=== PATIENT | female | born 1940 | race Caucasian/White ===

== ENCOUNTER → 2018-02-23 10:33 | Outpatient (CLI) | payer MEDICARE, SELFPAY ==
[2018-02-23 12:15] LABS: Absolute Neutrophil Count 2.1 X10^3/uL (2.0-7.7); Basophil# 0.02 X10^3/uL; Basophil% 0.5 % (0-1); Eosinophils% 4.6 % (0-5); Hematocrit 37.8 % (37-47); Hemoglobin 12.5 g/dl (12.0-15.0); Lymphocyte % 38.9 % (19-41); Mean Corp Hgb Conc 33.1 g/gl (32-36); Mean Corpuscular Hgb 29.8 pg (27.0-32.0); Mean Corpuscular Volume 90.2 fL (81-99); Mean Platelet Vol. 10.7 fl (6.2-12.0); Monocyte# 0.33 X10^3/uL; Monocyte% 7.6 % (0-10); Neutrophil # 2.11 X10^3/uL (2.7-7.7); Neutrophil % 48.2 % (47-70); Platelet Count 179 K/mm3 (150-450); RBC Distribution Width SD 44.7 fl (35.1-43.9); Red Blood Count 4.19 M/mm3 (4.2-5.4); White Blood Count 4.4 K/mm3 (4.4-11.0)
[2018-02-23 12:20] LABS: POSITIVE COUNT NO; POSITIVE DIFFERENTIAL NO; POSITIVE MORPHOLOGY NO
[2018-02-23 12:39] LABS: Anion Gap 9 (5-15); BUN 14 mg/dL (7-18); BUN/Creat Ratio 19.9 RATIO (10-20); Calcium,Total 8.6 mg/dL (8.5-10.1); Chloride 108 mmol/L (98-107); Cholesterol 173 mg/dL (200); EST Glomerular Filtration Rate 86 mL/min (>60); Est Glom Filt Rate - Afr Amer 104 mL/min (>60); Glucose 86 mg/dL (74-106); High Density Lipoprotein 66 mg/dL; Potassium 4.3 mmol/L (3.5-5.1); Sodium Level 141 mmol/L (136-145); Triglycerides 157 mg/dL; Very Low Density Lipoprotein 31 mg/dL (5-40)
== END ==
PROVIDERS: Family Provider Family Medicine; PCP Family Medicine; Visit Provider Family Medicine
DX: E55.9 Vitamin D deficiency, unspecified (principal); E78.00 Pure hypercholesterolemia, unspecified; Q63.1 Lobulated, fused and horseshoe kidney; R53.83 Other fatigue
CPT/HCPCS: 36415; 80048; 80061; 82306; 84443; 85025

== ENCOUNTER → 2018-04-04 11:56 | Outpatient (CLI) | payer MEDICARE, SELFPAY ==
--- NOTE | 2018-04-04 12:01 | BI_ITS ---
MAMMOGRAPHY - BILATERAL SCREENING REASON FOR EXAM: Female, 77 years old. Routine annual screening examination. PERTINENT HISTORY: Non-contributory. TECHNIQUE: Digital bilateral breast leon (3D mammographic acquisition) in the CC and MLO projections. 2-D mediolateral oblique (MLO) and craniocaudad (CC) views of both breasts were obtained. CAD: Full Field Digital Mammography with Computer Added Detection was performed. COMPARISON: Comparison is made with prior study dated June 30, 2016 and June 11, 2015. FINDINGS: Breast Composition: The breasts are almost entirely fatty. There are no dominant masses or suspicious calcifications. No other significant abnormalities are identified. There has been no significant change since the prior study. BI/SCREENING MAMM (CAD), BILAT IMPRESSION: Stable bilateral screening mammogram. Yearly follow-up mammogram recommended. (A) ASSESSMENT CATEGORY: BIRADS Category 1: Negative. A letter regarding these results will be sent to the patient by the facility within 30 days. Approximately 10% of breast cancers are not detected by mammography. A normal mammogram should not delay biopsy of a clinically suspicious abnormality. [id number] Electronically Signed: Fady Ryder MD at 14:38 EDT Tel [phone], Service support ,
== END ==
PROVIDERS: Family Provider Family Medicine; PCP Family Medicine; Visit Provider Family Medicine
DX: Z12.31 Encounter for screening mammogram for malignant neoplasm of breast (principal); R92.8 Other abnormal and inconclusive findings on diagnostic imaging of breast
CPT/HCPCS: 77063; 77067

== ENCOUNTER → 2019-06-19 09:04 | Outpatient (CLI) | payer MEDICARE, SELFPAY ==
[2019-06-19 10:18] LABS: Vitamin D,25 Hydroxy 28.8 ng/mL (29.95-100.01)
[2019-06-19 10:22] LABS: Anion Gap 9 (5-15); BUN 20 mg/dL (7-18); BUN/Creat Ratio 23.3 RATIO (10-20); Calcium,Total 9.3 mg/dL (8.5-10.1); Chloride 108 mmol/L (98-107); Cholesterol 186 mg/dL (200); Creatinine, Serum 0.86 mg/dL (0.55-1.02); EST Glomerular Filtration Rate 68 mL/min (>60); Est Glom Filt Rate - Afr Amer 82 mL/min (>60); Glucose 93 mg/dL (74-106); High Density Lipoprotein 70 mg/dL; Potassium 4.4 mmol/L (3.5-5.1); Sodium Level 142 mmol/L (136-145); Thyroid Stim Hormone (TSH) 5.47 uIU/mL (0.358-3.74); Triglycerides 118 mg/dL; Very Low Density Lipoprotein 24 mg/dL (5-40)
== END ==
PROVIDERS: Family Provider Family Medicine; PCP Family Medicine; Referring Provider Family Medicine; Visit Provider Family Medicine
DX: E55.9 Vitamin D deficiency, unspecified (principal); E78.00 Pure hypercholesterolemia, unspecified; M85.80 Other specified disorders of bone density and structure, unspecified site
CPT/HCPCS: 36415; 80048; 80061; 82306; 84443

== ENCOUNTER → 2019-06-21 15:38 | Outpatient (CLI) | payer MEDICARE, SELFPAY ==
--- NOTE | 2019-06-21 15:42 | BI_ITS ---
MAMMOGRAPHY - BILATERAL SCREENING REASON FOR EXAM: Female, 78 years old. Routine annual screening examination. PERTINENT HISTORY: Non-contributory. TECHNIQUE: Digital bilateral breast christiano (3D mammographic acquisition) in the CC and MLO projections. 2-D mediolateral oblique (MLO) and craniocaudad (CC) views of both breasts were obtained. CAD: Full Field Digital Mammography with Computer Added Detection was performed. COMPARISON: Comparison is made with prior study dated April 04, 2018 and June 30, 2016. FINDINGS: Breast Composition: There are scattered areas of fibroglandular density. There are no dominant masses or suspicious calcifications. Stable benign-appearing bilateral axillary lymph nodes. No other significant abnormalities are identified. There has been no significant change since the prior study. BI/SCREEN MAMM (CAD) W/CHRISTIANO BILAT IMPRESSION: Stable bilateral screening mammogram. Yearly follow-up mammogram recommended. (A) ASSESSMENT CATEGORY: BIRADS Category 2: Benign. A letter regarding these results will be sent to the patient by the facility within 30 days. Approximately 10% of breast cancers are not detected by mammography. A normal mammogram should not delay biopsy of a clinically suspicious abnormality. [id number] Electronically Signed: Fady Ryder, at 8:24 EDT , Service support ,
== END ==
PROVIDERS: Family Provider Family Medicine; PCP Family Medicine; Visit Provider Family Medicine
DX: Z12.31 Encounter for screening mammogram for malignant neoplasm of breast (principal)
CPT/HCPCS: 77063; 77067

== ENCOUNTER → 2019-09-19 08:13 | Outpatient (CLI) | payer MEDICARE, SELFPAY ==
[2019-09-19 08:56] LABS: Absolute Lymphocyte Count 1.61 X10^3/uL (0.83-4.51); Basophil# 0.05 X10^3/uL; Basophil% 0.8 % (0-1); Eosinophil# 0.26 X10^3/uL; Hematocrit 37.4 % (37-47); Hemoglobin 12.6 g/dL (12.0-15.0); Lymphocyte # 1.61 X10^3/ul (4.0); Lymphocyte % 24.7 % (19-41); Mean Corp Hgb Conc 33.7 g/dL (32-36); Mean Corpuscular Hgb 30.3 pg (27.0-32.0); Mean Corpuscular Volume 89.9 fL (81-99); Monocyte# 0.53 X10^3/uL; Monocyte% 8.1 % (0-10); NRBC Flagged by Analyzer 0 % (0-5); Neutrophil # 4.03 X10^3/uL (2.7-7.7); Neutrophil % 61.8 % (47-70); Platelet Count 188 K/mm3 (150-450); RBC Distribution Width CV 13.2 % (11.6-14.6); RBC Distribution Width SD 43.3 fl (35.1-43.9); Red Blood Count 4.16 M/mm3 (4.2-5.4); White Blood Count 6.5 K/mm3 (4.4-11.0)
[2019-09-19 09:10] LABS: ALB/GLOB Ratio 1.1 RATIO (0.9-2.4); AST(SGOT) 19 U/L (15-37); Alanine Aminotransfer ALT/SGPT 29 U/L (13-56); Albumin, Serum 3.7 g/dL (3.2-5.0); Alkaline Phosphatase 113 U/L (45-117); Anion Gap 7 (5-15); BUN 15 mg/dL (7-18); BUN/Creat Ratio 19.3 RATIO (10-20); CPK Total, Creatine Kinase 71 U/L (26-192); Calcium,Total 8.9 mg/dL (8.5-10.1); Chloride 105 mmol/L (98-107); Cholesterol 175 mg/dL (200); Creatinine, Serum 0.78 mg/dL (0.55-1.02); EST Glomerular Filtration Rate 76 mL/min (>60); Est Glom Filt Rate - Afr Amer 92 mL/min (>60); Globulin 3.5 g/dL (2.2-4.2); Glucose 96 mg/dL (74-106); High Density Lipoprotein 65 mg/dL; Magnesium 2.1 mg/dL (1.6-2.6); Phosphorus 3.3 mg/dL (2.5-4.9); Potassium 3.8 mmol/L (3.5-5.1); Protein, Total 7.2 g/dL (6.4-8.2); Sodium Level 140 mmol/L (136-145); T4 Free Direct 0.88 ng/dL (0.76-1.46); Thyroid Stim Hormone (TSH) 9.32 uIU/mL (0.358-3.74); Triglycerides 137 mg/dL; Very Low Density Lipoprotein 27 mg/dL (5-40)
[2019-09-19 13:54] LABS: Vitamin B12 536 pg/mL (211-911); Vitamin D,25 Hydroxy 32.5 ng/mL (29.95-100.01)
== END ==
PROVIDERS: Family Provider Family Medicine; PCP Family Medicine; Referring Provider Family Medicine; Visit Provider Family Medicine
DX: E55.9 Vitamin D deficiency, unspecified (principal); R53.83 Other fatigue; R25.2 Cramp and spasm; E03.9 Hypothyroidism, unspecified
CPT/HCPCS: 36415; 80053; 80061; 82306; 82550; 82607; 83735; 84100; 84439; 84443; 85025

== ENCOUNTER → 2019-10-02 13:08 | Outpatient (CLI) | payer MEDICARE, SELFPAY ==
--- NOTE | 2019-10-02 13:12 | CDU_ITS ---
Reason For Study: carotid stenosis Rt. Velocities/BP Lt. Velocities/BP Prox CCA 90.4/20.0 cm/sec. Prox CCA 72.1/16.0 cm/sec. Mid CCA 66.9/14.7 cm/sec. Mid CCA 72.1/17.3 cm/sec. Dist CCA 57.8/14.7 cm/sec. Dist CCA 56.5/13.4 cm/sec. Prox ICA 42.1/13.4 cm/sec. Prox ICA 40.8/13.4 cm/sec. Mid ICA 49.9/14.7 cm/sec. Mid ICA 64.3/18.6 cm/sec. Dist ICA 87.8/30.4 cm/sec. Dist ICA 73.4/22.6 cm/sec. Rt. ICA/CCA = 1.3. Lt. ICA/CCA = 1.0. Prox ECA 99.5/10.8 cm/sec. Prox ECA 98.2/14.7 cm/sec. Rt. Vert. 48.6/14.7 cm/sec. Lt. Vert. 52.5/13.4 cm/sec. Right Extracranial There is intimal thickening but no significant atherosclerotic plaque noted in the right common carotid artery. There is intimal thickening but no significant atherosclerotic plaque noted in the right internal carotid artery. There is heterogeneous, irregular atherosclerotic plaque noted in the right external carotid artery. Antegrade flow is noted in the right vertebral artery. Left Extracranial There is intimal thickening but no significant atherosclerotic plaque noted in the left common carotid artery. There is heterogeneous, smooth atherosclerotic plaque noted in the left internal carotid artery. There is homogeneous, smooth atherosclerotic plaque noted in the left external carotid artery. Antegrade flow is noted in the left vertebral artery. Procedure Carotid Duplex [id number]. The exam was diagnostic. Exam performed in department. Interpretation Summary No significant atherosclerotic plaque or stenosis noted in the right internal carotid artery. Mild (<50%) stenosis left extracranial internal carotid. Flow within the vertebral arteries is antegrade bilaterally. Ordering Physician: Shant Sommers Performed By: Mac Sánchez RVT
--- NOTE | 2019-10-02 13:13 | ECHOD_ITS ---
Reason For Study: MURMUR Procedure This was a 2D Doppler, Color Flow transthoracic echocardiogram. The exam was of adequate technical quality. Exam performed in department. Left Ventricle Normal LV size. Left ventricular systolic function is normal. The estimated ejection fraction is 65 %. Diastolic function is indeterminate. No regional wall motion abnormalities noted. Right Ventricle Normal RV size. Normal systolic function. Atria Normal left atrium. Normal right atrium. No doppler evidence for ASD. Mitral Valve There is moderate mitral annular calcification. Extension of the mitral annular calcification onto the base of the posterior mitral valve leaflet. Mild (1+) eccentric mitral valve insufficiency. Tricuspid Valve Normal tricuspid valve. Mild to moderate (1-2+) tricuspid valve insufficiency. Right ventricular systolic pressure estimated to be 29 mmHg. Aortic Valve Trisinus/trileaflet aortic valve. Moderate focal aortic valve calcification. Pulmonic Valve The pulmonic valve is not well visualized. Great Vessels Normal sized aortic root. Pericardium/Pleural No pericardial effusion. MMode/2D Measurements & Calculations LVIDd: 4.7 cm IVSd: 0.96 cm LVOT diam: 2.0 cm LVIDs: 2.6 cm LVPWd: 1.1 cm LVOT area: 3.1 cm2 RVDd: 3.7 cm FS: 45.6 % Ao root diam: 3.2 cm LAV(MOD-bp): 60.8 ml LA A4 area: 19.1 cm2 LAV(MOD-bp) Indexed: 31.0 ml/m2 LAV(MOD-sp2): 56.5 ml LAV(MOD-sp4): 63.5 ml LA dimension(2D): 4.2 cm Time Measurements MV dec time: 0.27 sec Doppler Measurements & Calculations MV E max ash: 77.3 cm/sec Lat Peak E' Ash: 3.5 cm/sec Med Peak E' Ash: 3.3 cm/sec MV A max ash: 102.8 cm/sec E/E' lat: 21.8 E/E' med: 23.5 MV E/A: 0.75 Ao V2 max: 199.3 cm/sec LV V1 max: 155.6 cm/sec SV(LVOT): 104.4 ml Ao max P.9 mmHg LV V1 max P.7 mmHg Ao V2 mean: 136.1 cm/sec LV V1 mean P.4 mmHg Ao mean P.2 mmHg LV V1 mean: 111.1 cm/sec Ao V2 VTI: 39.6 cm LV V1 VTI: 34.0 cm AYLEEN(I,D): 2.6 cm2 AYLEEN(V,D): 2.4 cm2 PA V2 max: 78.8 cm/sec TR max ash: 253.6 cm/sec TR max P.7 mmHg Interpretation Summary Left ventricular systolic function is normal. The estimated ejection fraction is 65 %. There is moderate mitral annular calcification. Extension of the mitral annular calcification onto the base of the posterior mitral valve leaflet. Mild (1+) eccentric mitral valve insufficiency. Mild to moderate (1-2+) tricuspid valve insufficiency. Moderate focal aortic valve calcification. Right ventricular systolic pressure estimated to be 29 mmHg. Diastolic function is indeterminate. Ordering Physician: Shant Sommers Referring Physician: Shant Sommers Performed By: Tiny Veloz RDCS, RVT
[2019-10-10 20:21] LABS: Anti-Thyroglobulin AB 1.8 IU/mL (0.0-0.9); Thyroid Peroxidase AB 11 IU/mL (0-34)
[2019-10-10 20:22] LABS: Thyroglobulin RIA 9.2 ng/mL (.)
== END ==
PROVIDERS: Family Provider Family Medicine; PCP Family Medicine; Referring Provider Family Medicine; Visit Provider Family Medicine
DX: R09.89 Other specified symptoms and signs involving the circulatory and respiratory systems (principal); I65.29 Occlusion and stenosis of unspecified carotid artery; R01.1 Cardiac murmur, unspecified; E03.9 Hypothyroidism, unspecified
CPT/HCPCS: 36415; 84432; 86376; 86800; 93306; 93880

== ENCOUNTER → 2019-10-10 10:04 | Outpatient (CLI) | payer MEDICARE, SELFPAY ==
--- NOTE | 2019-10-10 10:07 | BD_ITS ---
STUDY: DUAL ENERGY X-RAY ABSORPTIOMETRY / DXA REASON FOR EXAM: Female, 79 years old. The patient is postmenopausal. Loss of height. TECHNIQUE: Bone Mineral Density (BMD) measurements of lumbar spine and bilateral hips were obtained. COMPARISON: None. FINDINGS: Lumbar Spine (L1-L4): g/cm2 (0.942) / T-score (-1.9) / Z-score (-0.1) Findings are suggestive of osteopenia with a moderate fracture risk. Left Femur Total: g/cm2 (0.907) / T-score (-0.8) / Z-score (1.1) Left Femoral Neck: g/cm2 (0.873) / T-score (-1.2) / Z-score (0.9) Right Femur Total: g/cm2 (0.852) / T-score (-1.2) / Z-score (0.7) Right Femoral Neck: g/cm2 (0.860) / T-score (-1.3) / Z-score (0.8) BD/Dexa Bone Density Study IMPRESSION: The patient is considered osteopenic as outlined below according to World Brad Organization (WHO) criteria with a moderate fracture risk. Reference Information: The T-score is the number of standard deviations above or below the standard which is normal for young adults at their peak bone mineral density. The World Health Organization (WHO) interprets the T-scores as follows: Above -1 Normal bone density Between -1 and -2.5 Osteopenia Equal to / or below -2.5 Osteoporosis As a practical clinical guideline, osteopenia may be graded as follows: Mild -1 through -1.5 Moderate -1.6 through -2.0 Severe -2.1 through -2.4 The Z-score is the number of standard deviations above or below age-matched controls. A Z-score of less than -1.5 would be considered abnormal. References: 1. NIH Osteoporosis and Related Bone Diseases http://www.osteo.org 2. International Society for Clinical Densitometry http://www.iscd.org 3. National Osteoporosis Foundation http://www.nof.org Electronically Signed: Fady Ryder, at 15:23 EST , Service support ,
== END ==
PROVIDERS: Family Provider Family Medicine; PCP Family Medicine; Referring Provider Family Medicine; Visit Provider Family Medicine
DX: M85.80 Other specified disorders of bone density and structure, unspecified site (principal); Z78.0 Asymptomatic menopausal state
CPT/HCPCS: 77080

== ENCOUNTER 2020-04-29 06:44 | Emergency (ER) | payer MEDICARE, SELFPAY ==
[2020-04-29] VITALS (8 sets, daily range): BP systolic 128–208; BP diastolic 72–110; PULSE 55–69; RESP 16–18; TEMP 36.5–36.8; O2SAT 97–98; BMI 33.0
--- NOTE | 2020-04-29 06:58 | EKG12_ITS ---
Test Reason : Blood Pressure : / mmHG Vent. Rate : 056 BPM Atrial Rate : 056 BPM P-R Int : 176 ms QRS Dur : 142 ms QT Int : 484 ms P-R-T Axes : 052 007 045 degrees QTc Int : 467 ms Sinus bradycardia Right bundle branch block Abnormal ECG Confirmed by EMHNAZ WOO ([id number]), digital editor TASHIA AUSTIN ([id number]) on 05/06/2020 8:16:59 AM Referred By: Confirmed By:MEHNAZ WOO
--- NOTE | 2020-04-29 06:59 | ED.VIS.GEN ---
History of Present Illness Chief Complaint: General Illness Informant: Patient Narrative: Patient presents the emergency room following an episode of dizziness. She states that yesterday her right hand was tingly but resolved. She did not have any weakness. Today she got up and use the bathroom and came back when she got back into bed she was very dizzy stating that the room was spinning. She has had positional vertigo in the past and did some self repositioning techniques which helped. During that episode she was sweaty and nauseous as well as some mild dyspnea.. That has improved. She also notes some generalized myalgias. No fever or cough. She states that over the past 6 months she is noted that whenever she takes her blood pressure it is typically over 170. She is not currently treated for hypertension. No chest pain. Eating and drinking normally. She has had a good deal of stress as her is sick and she has been caring for him. Past Medical History - Allergies and Home Meds Allergies/Adverse Reactions: Allergies No Known Allergies Allergy (Verified 04/29/20 06:47) Primary Care Physician: Shant Sommers MD [Primary Care Provider] - 1-2 Weeks Smoking Status: Never smoker Review of Systems General: Denies: Chills, Fever, Sweats Eyes: Denies: Visual changes - bilaterally, Diplopia ENT: Denies: Rhinorrhea, Sore throat Cardiovascular: Denies: Chest pain, Palpitations Respiratory: Reports: Dyspnea. Denies: Cough, Dyspnea on exertion Gastrointestinal: Reports: Nausea. Denies: Abdominal pain, Vomiting, Diarrhea, Melena, Hematochezia Genitourinary: Denies: Dysuria, Hematuria, Frequency Musculoskeletal: Denies: Back pain, Extremity Pain Skin: Denies: Rash, Wounds Neurological: Reports: Parasthesia - right hand, - - vertigo. Denies: Headache, Weakness, Numbness Physical Exam Vital Signs/Narrative: Vital Signs Temp Pulse Resp BP Pulse Ox 04/29/20 06:45 97.7 F L 65 16 208/84 H 97 Inital Vital Signs reviewed: Yes General: Well nourished, Well developed, No Acute Distress Head: Normocephalic, Atraumatic Eyes: Perrl, EOMI, - - No nystagmus ENT: Moist mucous membranes, No rhinorrhea Neck: Supple, Nontender Cardiovascular: Regular rate, Regular rhythm, No murmurs Respiratory: No distress, CTA bilaterally, Chest nontender Abdomen: Soft, Nontender, Nondistended, Normal bowel sounds Back: Nontender, Normal Inspection Extremities: Nontender, No edema Skin: Normal color, No rash Neurological: Alert, Oriented x3, Cranial nerves II-XII grossly intact, Normal Strength, Normal Sensation Psychological: - - Patient appears very anxious Diagnostic/Tx/Re-eval Clinical Impression(s) from Imaging Studies Brain CT 04/29/20 07:21 IMPRESSION: Chronic involutional changes of the brain. No acute hemorrhage Right maxillary sinusitis Electronically Signed: Russ Cornell MD at 8:16 EDT , Service support , Chest X-Ray 04/29/20 08:00 IMPRESSION: No acute pulmonary process Electronically Signed: Russ Cornell MD at 8:16 EDT , Service support , Laboratory Last Values WBC 4.4 K/mm3 (4.4-11.0) 04/29/20 07:12 RBC 3.98 M/mm3 (4.2-5.4) L 04/29/20 07:12 Hgb 12.1 g/dL (12.0-15.0) 04/29/20 07:12 Hct 36.3 % (37-47) L 04/29/20 07:12 MCV 91.2 fL (81-99) 04/29/20 07:12 MCH 30.4 pg (27.0-32.0) 04/29/20 07:12 MCHC 33.3 g/dL (32-36) 04/29/20 07:12 RDW Std Deviation 43.1 fl (35.1-43.9) 04/29/20 07:12 RDW Coeff of Rachel 13.2 % (11.6-14.6) 04/29/20 07:12 Plt Count 165 K/mm3 (150-450) 04/29/20 07:12 MPV 10.0 fl (6.2-12.0) 04/29/20 07:12 Immature Gran % (Auto) 0.200 % (0.0-0.9) 04/29/20 07:12 Neut % (Auto) 48.0 % (47-70) 04/29/20 07:12 Lymph % (Auto) 40.0 % (19-41) 04/29/20 07:12 [place] % (Auto) 7.5 % (0-10) 04/29/20 07:12 Eos % (Auto) 3.6 % (0-5) 04/29/20 07:12 Baso % (Auto) 0.7 % (0-1) 04/29/20 07:12 Absolute Neuts (auto) 2.1 X10^3/uL (2.0-7.7) 04/29/20 07:12 Absolute Lymphs (auto) 1.77 X10^3/uL (0.83-4.51) 04/29/20 07:12 Nucleated RBC % 0 % (0-5) 04/29/20 07:12 Sodium 142 mmol/L (136-145) 04/29/20 07:12 Potassium 3.7 mmol/L (3.5-5.1) 04/29/20 07:12 Chloride 108 mmol/L (98-107) H 04/29/20 07:12 Carbon Dioxide 26.0 mmol/L (21.0-32.0) 04/29/20 07:12 Anion Gap 8 (5-15) 04/29/20 07:12 BUN 14 mg/dL (7-18) 04/29/20 07:12 Creatinine 0.66 mg/dL (0.55-1.02) 04/29/20 07:12 Estim Creat Clear Calc 41.05 ml/min 04/29/20 07:12 Est GFR (MDRD) Af Amer 112 mL/min (>60) 04/29/20 07:12 Est GFR (MDRD) Non-Af 92 mL/min (>60) 04/29/20 07:12 BUN/Creatinine Ratio 21.3 RATIO (10-20) H 04/29/20 07:12 Glucose 100 mg/dL (74-106) 04/29/20 07:12 Calcium 8.9 mg/dL (8.5-10.1) 04/29/20 07:12 Total Bilirubin 0.40 mg/dL (0.20-1.00) 04/29/20 07:12 AST 20 U/L (15-37) 04/29/20 07:12 ALT 25 U/L (13-56) 04/29/20 07:12 Alkaline Phosphatase 84 U/L (45-117) 04/29/20 07:12 Troponin I < 0.015 ng/mL (<0.045) 04/29/20 07:12 Total Protein 6.8 g/dL (6.4-8.2) 04/29/20 07:12 Albumin 3.7 g/dL (3.2-5.0) 04/29/20 07:12 Globulin 3.1 g/dL (2.2-4.2) 04/29/20 07:12 Albumin/Globulin Ratio 1.2 RATIO (0.9-2.4) 04/29/20 07:12 Urine Color Yellow (Yellow) 04/29/20 07:40 Urine Clarity Sl. Cloudy (Clear) 04/29/20 07:40 Urine pH 6.0 (5.0 - 8.0) 04/29/20 07:40 Ur Specific [place] 1.020 (1.002-1.030) 04/29/20 07:40 Urine Protein Negative mg/dl (Negative) 04/29/20 07:40 Urine Glucose (UA) Normal mg/dl (Normal) 04/29/20 07:40 Urine Ketones Negative mg/dl (Negative) 04/29/20 07:40 Urine Occult Blood 50 /ul (Negative) H 04/29/20 07:40 Urine Nitrite Negative (Negative) 04/29/20 07:40 Urine Bilirubin Negative mg/dL (Negative) 04/29/20 07:40 Urine Urobilinogen Normal mg/dl (Normal) 04/29/20 07:40 Ur Leukocyte Esterase 25 /ul (Negative) H 04/29/20 07:40 Urine RBC 0-5 SEEN /hpf (0-5) 04/29/20 07:40 Urine WBC 0-5 SEEN /hpf (0-5) 04/29/20 07:40 Ur Squamous Epith Cells 0-5 SEEN /hpf (5-10) 04/29/20 07:40 Urine Bacteria 2+ /hpf (None Seen) 04/29/20 07:40 Urine Mucus 0 SEEN /hpf (<or=2+) 04/29/20 07:40 - EKG Initial EKG Interpretation: Sinus Rhythm - EKG demonstrates a sinus bradycardia at a rate of 56 with right bundle branch block. No ectopy or concerning features of ACS. - Medical Decision Making CT the brain and chest x-ray were negative. Basic labs were normal. Patient's blood pressures have remained elevated in the 200/90 range. Try different size cuffs and manual readings and pretty consistently got elevated pressures. She was given a dose of amlodipine. I spoke with her primary care physician we will write a prescription for the same and have her follow-up in the office return if worsening or concerns. ED Disposition - Plan for ED Patient: Disposition: Home or Assisted Living Diagnosis: Hypertension, Vertigo Instructions: ED Hypertension New Begin Treatment, ED Vertigo Unspecified Prescriptions: Amlodipine [Norvasc] 5 mg PO DAILY #30 tab Prescription Printed Referrals: Shant Sommers MD [Primary Care Provider] - 1-2 Weeks
[2020-04-29] MEDS: Ondansetron 4 MG/2 ML Vial IV (07:12)
[2020-04-29 07:20] LABS: Absolute Lymphocyte Count 1.77 X10^3/uL (0.83-4.51); Absolute Neutrophil Count 2.1 X10^3/uL (2.0-7.7); Basophil# 0.03 X10^3/uL; Basophil% 0.7 % (0-1); Eosinophil# 0.16 X10^3/uL; Eosinophils% 3.6 % (0-5); Hematocrit 36.3 % (37-47); Hemoglobin 12.1 g/dL (12.0-15.0); Lymphocyte # 1.77 X10^3/ul (4.0); Mean Corp Hgb Conc 33.3 g/dL (32-36); Mean Corpuscular Hgb 30.4 pg (27.0-32.0); Mean Corpuscular Volume 91.2 fL (81-99); Monocyte# 0.33 X10^3/uL; Monocyte% 7.5 % (0-10); NRBC Flagged by Analyzer 0 % (0-5); Neutrophil # 2.12 X10^3/uL (2.7-7.7); Platelet Count 165 K/mm3 (150-450); RBC Distribution Width CV 13.2 % (11.6-14.6); RBC Distribution Width SD 43.1 fl (35.1-43.9); Red Blood Count 3.98 M/mm3 (4.2-5.4); White Blood Count 4.4 K/mm3 (4.4-11.0)
--- NOTE | 2020-04-29 07:21 | CT_ITS ---
STUDY: CT BRAIN WITHOUT CONTRAST REASON FOR EXAM: Female, 79 years old. Dizziness, sob, BODY ACHES RADIATION DOSAGE (If Supplied By Facility): CTDIvol = ( 60.81 ) mGy, DLP = ( 1044.28 ) mGycm TECHNIQUE: Transaxial CT imaging of the brain was performed without administration of intravenous contrast material. Individualized dose optimization techniques were used for this CT. COMPARISON: No relevant priors. FINDINGS: Normal soft tissue structures. Normal calvarium. There is mild cerebral atrophy with widening of the extra-axial spaces and ventricular dilatation. There are areas of decreased attenuation within the white matter tracts of the supratentorial brain, consistent with microvascular disease changes. 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 Normal brainstem. There is mild cerebellar atrophy. There is no intracranial hemorrhage. There are no findings of an acute ischemic infarction. Near complete opacification of the right maxillary sinus CT/Brain/Head without Contrast IMPRESSION: Chronic involutional changes of the brain. No acute hemorrhage Right maxillary sinusitis Electronically Signed: Russ Cornell MD at 8:16 EDT , Service support ,
[2020-04-29 07:38] LABS: ALB/GLOB Ratio 1.2 RATIO (0.9-2.4); AST(SGOT) 20 U/L (15-37); Alanine Aminotransfer ALT/SGPT 25 U/L (13-56); Albumin, Serum 3.7 g/dL (3.2-5.0); Alkaline Phosphatase 84 U/L (45-117); Anion Gap 8 (5-15); BUN 14 mg/dL (7-18); BUN/Creat Ratio 21.3 RATIO (10-20); Calcium,Total 8.9 mg/dL (8.5-10.1); Chloride 108 mmol/L (98-107); Creatinine, Serum 0.66 mg/dL (0.55-1.02); EST Glomerular Filtration Rate 92 mL/min (>60); Est Glom Filt Rate - Afr Amer 112 mL/min (>60); Estimated Creatinine Clearance 41.05 ml/min; Globulin 3.1 g/dL (2.2-4.2); Glucose 100 mg/dL (74-106); Potassium 3.7 mmol/L (3.5-5.1); Protein, Total 6.8 g/dL (6.4-8.2); Sodium Level 142 mmol/L (136-145)
[2020-04-29 07:46] LABS: Mucous, Urine 0 SEEN /hpf (<or=2+)
[2020-04-29 07:48] LABS: Color, Urine Yellow (Yellow); Glucose, Dipstick Normal (Normal); Ketone-Dipstick Negative (Negative); Leukocyte Esterase-Dipstick 25 /ul (Negative); Nitrite-Dipstick Negative (Negative); Occult Blood-Urine 50 /ul (Negative); Protein-Dipstick Negative (Negative); Urine Bilirubin Dipstick Negative (Negative); Urine Clarity Sl. Cloudy (Clear); Urine Urobilinogen Normal (Normal)
[2020-04-29 07:55] LABS: Bacteria 2+ /hpf (None Seen); Red Blood Cells-Urine 0-5 SEEN /hpf (0-5); Squamous Epithelial Cells - UA 0-5 SEEN /hpf (5-10); White Blood Cells 0-5 SEEN /hpf (0-5)
--- NOTE | 2020-04-29 08:00 | RAD_ITS ---
STUDY: X-RAY CHEST REASON FOR EXAM: Female, 79 years old. Chest pain/pressure TECHNIQUE: Single AP portable view of the chest. COMPARISON: 2016 FINDINGS: EKG leads overlie the chest The lungs are clear and expanded. There is no demonstrated pleural abnormality. Normal size heart. Normal mediastinum and sabina. Normal visualized pulmonary arteries. Normal visualized aortic arch and descending thoracic aorta. There are diffuse degenerative changes of the visualized thoracic spine. Normal visualized ribs, clavicles, and shoulders. There is no demonstrated abnormality of the visualized soft tissue structures of the upper abdomen. RAD/Chest 1 View (Portable) IMPRESSION: No acute pulmonary process Electronically Signed: Russ Cornell MD at 8:16 EDT , Service support ,
--- NOTE | 2020-04-29 09:07 | NURSING ---
PAGED DR CORCORAN
[2020-04-29] MEDS: amLODIPine 5 MG Tablet PO (10:21)
== END 2020-04-29 10:30 | disposition home or self-care (01) ==
PROVIDERS: Emergency Provider Emergency Medicine; PCP Family Medicine
DX: R42 Dizziness and giddiness (principal); I10 Essential (primary) hypertension; Z79.899 Other long term (current) drug therapy
CPT/HCPCS: 70450; 71045; 80053; 81001; 84484; 85025; 93005; 96374; 99285; A4216; J2405

== ENCOUNTER → 2020-05-07 | Outpatient (CLI) | payer MEDICARE, SELFPAY ==
[2020-04-29 06:45] VITALS: BMI 33.0
[2020-05-07 15:39] LABS: Absolute Lymphocyte Count 1.48 X10^3/uL (0.83-4.51); Absolute Neutrophil Count 2.4 X10^3/uL (2.0-7.7); Basophil# 0.04 X10^3/uL; Basophil% 0.9 % (0-1); Eosinophil# 0.12 X10^3/uL; Eosinophils% 2.6 % (0-5); Hematocrit 38.6 % (37-47); Hemoglobin 12.4 g/dL (12.0-15.0); Lymphocyte # 1.48 X10^3/ul (4.0); Lymphocyte % 32.7 % (19-41); Mean Corp Hgb Conc 32.1 g/dL (32-36); Mean Corpuscular Hgb 29.8 pg (27.0-32.0); Mean Corpuscular Volume 92.8 fL (81-99); Mean Platelet Vol. 10.7 fl (6.2-12.0); Monocyte# 0.49 X10^3/uL; Monocyte% 10.8 % (0-10); NRBC Flagged by Analyzer 0 % (0-5); Neutrophil # 2.39 X10^3/uL (2.7-7.7); Neutrophil % 52.8 % (47-70); Platelet Count 222 K/mm3 (150-450); RBC Distribution Width CV 13.4 % (11.6-14.6); Red Blood Count 4.16 M/mm3 (4.2-5.4); White Blood Count 4.5 K/mm3 (4.4-11.0)
[2020-05-07 15:53] LABS: ALB/GLOB Ratio 1.3 RATIO (0.9-2.4); AST(SGOT) 23 U/L (15-37); Alanine Aminotransfer ALT/SGPT 33 U/L (13-56); Albumin, Serum 3.9 g/dL (3.2-5.0); Alkaline Phosphatase 93 U/L (45-117); Anion Gap 6 (5-15); BUN 23 mg/dL (7-18); BUN/Creat Ratio 27.3 RATIO (10-20); Calcium,Total 8.6 mg/dL (8.5-10.1); Chloride 108 mmol/L (98-107); Cholesterol 167 mg/dL (200); Creatinine, Serum 0.84 mg/dL (0.55-1.02); EST Glomerular Filtration Rate 69 mL/min (>60); Est Glom Filt Rate - Afr Amer 84 mL/min (>60); Globulin 3.1 g/dL (2.2-4.2); Glucose 105 mg/dL (74-106); High Density Lipoprotein 61 mg/dL; Phosphorus 3.8 mg/dL (2.5-4.9); Potassium 3.6 mmol/L (3.5-5.1); Sodium Level 139 mmol/L (136-145); T4 Free Direct 0.99 ng/dL (0.76-1.46); Thyroid Stim Hormone (TSH) 2.53 uIU/mL (0.358-3.74); Triglycerides 200 mg/dL; Very Low Density Lipoprotein 40 mg/dL (5-40)
== END | disposition home or self-care (01) ==
LOC: MFPLAB 11:51
PROVIDERS: PCP Family Medicine; Visit Provider Family Medicine
DX: E03.9 Hypothyroidism, unspecified (principal); M85.80 Other specified disorders of bone density and structure, unspecified site; E55.9 Vitamin D deficiency, unspecified; E78.00 Pure hypercholesterolemia, unspecified
CPT/HCPCS: 36415; 80053; 80061; 82306; 84100; 84439; 84443; 85025

== ENCOUNTER → 2020-09-08 16:38 | Outpatient (CLI) | payer MEDICARE, SELFPAY ==
[2020-04-29 06:45] VITALS: BMI 33.0
[2020-09-08 17:41] LABS: Absolute Lymphocyte Count 2.35 X10^3/uL (0.83-4.51); Basophil# 0.05 X10^3/uL; Basophil% 0.7 % (0-1); Eosinophil# 0.33 X10^3/uL; Eosinophils% 4.5 % (0-5); Hematocrit 37.9 % (37-47); Hemoglobin 12.5 g/dL (12.0-15.0); Lymphocyte # 2.35 X10^3/ul (4.0); Lymphocyte % 32.1 % (19-41); Mean Corpuscular Hgb 29.6 pg (27.0-32.0); Mean Corpuscular Volume 89.6 fL (81-99); Mean Platelet Vol. 10.5 fl (6.2-12.0); Monocyte# 0.58 X10^3/uL; Monocyte% 7.9 % (0-10); NRBC Flagged by Analyzer 0 % (0-5); Neutrophil # 3.99 X10^3/uL (2.7-7.7); Neutrophil % 54.7 % (47-70); Platelet Count 220 K/mm3 (150-450); RBC Distribution Width CV 13.2 % (11.6-14.6); Red Blood Count 4.23 M/mm3 (4.2-5.4); White Blood Count 7.3 K/mm3 (4.4-11.0)
[2020-09-08 18:16] LABS: Vitamin D,25 Hydroxy 31.1 ng/mL
[2020-09-08 18:23] LABS: ALB/GLOB Ratio 1.1 RATIO (0.9-2.4); AST(SGOT) 20 U/L (15-37); Alanine Aminotransfer ALT/SGPT 27 U/L (13-56); Albumin, Serum 3.9 g/dL (3.2-5.0); Alkaline Phosphatase 97 U/L (45-117); Anion Gap 7 (5-15); BUN 27 mg/dL (7-18); BUN/Creat Ratio 29.8 RATIO (10-20); Calcium,Total 8.8 mg/dL (8.5-10.1); Chloride 105 mmol/L (98-107); Cholesterol 194 mg/dL (200); EST Glomerular Filtration Rate 64 mL/min (>60); Est Glom Filt Rate - Afr Amer 77 mL/min (>60); Globulin 3.4 g/dL (2.2-4.2); Glucose 91 mg/dL (74-106); High Density Lipoprotein 62 mg/dL; Phosphorus 3.5 mg/dL (2.5-4.9); Potassium 4.1 mmol/L (3.5-5.1); Protein, Total 7.3 g/dL (6.4-8.2); Sodium Level 139 mmol/L (136-145); T4 Free Direct 0.97 ng/dL (0.76-1.46); Thyroid Stim Hormone (TSH) 1.97 uIU/mL (0.358-3.74); Triglycerides 236 mg/dL; Very Low Density Lipoprotein 47 mg/dL (5-40)
== END ==
PROVIDERS: PCP Family Medicine; Visit Provider Family Medicine
DX: M85.80 Other specified disorders of bone density and structure, unspecified site (principal); I10 Essential (primary) hypertension; E03.9 Hypothyroidism, unspecified; E78.00 Pure hypercholesterolemia, unspecified
CPT/HCPCS: 36415; 80053; 80061; 82306; 84100; 84439; 84443; 85025

== ENCOUNTER 2020-11-27 12:00 | Outpatient (RCR) | payer MEDICARE, SELFPAY ==
[2020-04-29 06:45] VITALS: BMI 33.0
== END 2020-11-27 23:59 ==
LOC: IMMUN 12:00
PROVIDERS: PCP Family Medicine; Visit Provider Family Medicine
DX: Z23 Encounter for immunization (principal)
CPT/HCPCS: 0011A; 91301

== ENCOUNTER → 2021-03-26 14:22 | Outpatient (CLI) | payer MEDICARE, SELFPAY ==
[2020-04-29 06:45] VITALS: BMI 33.0
[2021-03-26 17:59] LABS: ALB/GLOB Ratio 1.2 RATIO (0.9-2.4); AST(SGOT) 14 U/L (15-37); Alanine Aminotransfer ALT/SGPT 22 U/L (13-56); Albumin, Serum 3.8 g/dL (3.2-5.0); Alkaline Phosphatase 85 U/L (45-117); Anion Gap 7 (5-15); BUN 26 mg/dL (7-18); BUN/Creat Ratio 20.5 RATIO (10-20); CPK Total, Creatine Kinase 83 U/L (26-192); Calcium,Total 9.6 mg/dL (8.5-10.1); Chloride 107 mmol/L (98-107); Creatinine, Serum 1.27 mg/dL (0.55-1.02); EST Glomerular Filtration Rate 43 mL/min (>60); Est Glom Filt Rate - Afr Amer 52 mL/min (>60); Ferritin 225 ng/mL (8-252); Globulin 3.3 g/dL (2.2-4.2); Glucose 106 mg/dL (74-106); Magnesium 1.9 mg/dL (1.6-2.6); Potassium 4.1 mmol/L (3.5-5.1); Protein, Total 7.1 g/dL (6.4-8.2); Sodium Level 141 mmol/L (136-145)
== END ==
PROVIDERS: PCP Family Medicine; Referring Provider Family Medicine; Visit Provider Family Medicine
DX: R25.2 Cramp and spasm (principal)
CPT/HCPCS: 36415; 80053; 82550; 82728; 83735; 84443

== ENCOUNTER → 2021-04-03 11:08 | Outpatient (CLI) | payer MEDICARE, SELFPAY ==
[2020-04-29 06:45] VITALS: BMI 33.0
[2021-04-03 15:22] LABS: Absolute Lymphocyte Count 2.59 X10^3/uL (0.83-4.51); Basophil# 0.06 X10^3/uL; Basophil% 0.9 % (0-1); Eosinophil# 0.27 X10^3/uL; Eosinophils% 4.2 % (0-5); Hematocrit 37.5 % (37-47); Hemoglobin 12.4 g/dL (12.0-15.0); Lymphocyte # 2.59 X10^3/ul (0.83-4.51); Lymphocyte % 40.7 % (19-41); Mean Corp Hgb Conc 33.1 g/dL (32-36); Mean Corpuscular Hgb 30.2 pg (27.0-32.0); Mean Corpuscular Volume 91.2 fL (81-99); Mean Platelet Vol. 10.7 fl (6.2-12.0); Monocyte# 0.47 X10^3/uL; Monocyte% 7.4 % (0-10); NRBC Flagged by Analyzer 0 % (0-5); Neutrophil # 2.96 X10^3/uL (2.7-7.7); Neutrophil % 46.6 % (47-70); Platelet Count 209 K/mm3 (150-450); RBC Distribution Width CV 13.7 % (11.6-14.6); RBC Distribution Width SD 45.3 fl (35.1-43.9); Red Blood Count 4.11 M/mm3 (4.2-5.4); White Blood Count 6.4 K/mm3 (4.4-11.0)
[2021-04-03 15:37] LABS: Vitamin D,25 Hydroxy 34.7 ng/mL
[2021-04-03 15:50] LABS: ALB/GLOB Ratio 1.1 RATIO (0.9-2.4); AST(SGOT) 18 U/L (15-37); Alanine Aminotransfer ALT/SGPT 22 U/L (13-56); Albumin, Serum 3.9 g/dL (3.2-5.0); Alkaline Phosphatase 100 U/L (45-117); Anion Gap 8 (5-15); BUN 26 mg/dL (7-18); BUN/Creat Ratio 32.2 RATIO (10-20); Calcium,Total 9.5 mg/dL (8.5-10.1); Chloride 106 mmol/L (98-107); Cholesterol 213 mg/dL (200); Creatinine, Serum 0.81 mg/dL (0.55-1.02); EST Glomerular Filtration Rate 72 mL/min (>60); Est Glom Filt Rate - Afr Amer 88 mL/min (>60); Globulin 3.5 g/dL (2.2-4.2); Glucose 83 mg/dL (74-106); High Density Lipoprotein 77 mg/dL; Phosphorus 3.6 mg/dL (2.5-4.9); Potassium 4.7 mmol/L (3.5-5.1); Protein, Total 7.4 g/dL (6.4-8.2); Sodium Level 138 mmol/L (136-145); Triglycerides 177 mg/dL; Very Low Density Lipoprotein 35 mg/dL (5-40)
== END ==
PROVIDERS: PCP Family Medicine; Referring Provider Family Medicine; Visit Provider Family Medicine
DX: I10 Essential (primary) hypertension (principal); E78.00 Pure hypercholesterolemia, unspecified; M85.80 Other specified disorders of bone density and structure, unspecified site
CPT/HCPCS: 36415; 80053; 80061; 82306; 84100; 85025

== ENCOUNTER → 2021-11-02 15:40 | Outpatient (CLI) | payer MEDICARE, SELFPAY ==
--- NOTE | 2021-11-02 15:45 | RAD_ITS ---
INDICATION: BILATERAL SHOULDER PAIN EXAMINATION/TECHNIQUE: X-RAY - XR Spine Cervical 4 or 5 Views COMPARISON: None. FINDINGS: Mild straightening of the columns of the cervical spine is visualized, Unremarkable alignment of the lateral masses of C1 with C2. No evidence of compression deformity of the cervical vertebral bodies is seen. Multilevel degenerative endplate changes visualized. Decreased intervertebral disc height visualized at multiple levels most prominent at C6-C7. Moderate narrowing of the neural foramina is visualized at multiple levels but more prominent on the left at C5-C6 No prevertebral soft tissue widening. The visualized upper lung sommer unremarkable RAD/Cerv Spine 4 or 5 Views IMPRESSION: Degenerative changes of the cervical spine visualized most prominent at C6-C7 and C5-C6. Electronically Signed: Stevie Blanchard MD at 9:27 EST Tel , Service support ,
== END ==
PROVIDERS: PCP Family Medicine; Referring Provider Family Medicine; Visit Provider Family Medicine
DX: M25.512 Pain in left shoulder (principal); M25.511 Pain in right shoulder
CPT/HCPCS: 72050

== ENCOUNTER 2021-11-09 10:17 | Outpatient (RCR) | payer MEDICARE, SELFPAY ==
--- NOTE | 2021-11-09 11:12 | HP.PTEVAL ---
Patient's Visit Information FRED RESTREPO is a 81 year old F referred to Physical Therapy by Dr. 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 Date of Evaluation: 11/09/21 Physical Therapist: Harsh Graf PT, Cert MDT, OCS - Visit Plan Frequency: 1 VISIT Plan: PT EVAL ONLY PROVIDE HEP - Subjective This 81 y/o female presents to physical therapy with shoulder and arm pain. Patient has had symptoms for several months . Seen DR did some test examination. Patient had x-rays DDD. Patient plans to see PT for HEP and will leave to [place]. Patient has cervical mild symptoms but symptoms located UT to shoulders and hands. Denies paresthesia/tingling. Denies TEJADA /tinnitus/nausea. Patient sleeping good. Aggravating factors not specific but evening symptoms worse. Pain described as ache. Alleviating factors teylonal. Patient plays [employer] ball. Patient goals to learn HEP. GOALS: hep. VOCATION: retired - Pain Bilateral Shoulder Pain Intensity (Out of 10): 2 Pain Intensity Range: 10 - Objective POSTURE: mild forward posture. NEURO: intact. PALAPTION: UT/levator mod tight. CERVICAL ROM: flexion min loss, extension mod loss, lateral flexion/rotation mod loss. MMT: BUE grossly 4/5, shoulders 4-/5 - Special Tests C/S Radiculapathy - Left Upper limb tension test: Negative C/S Radiculapathy - Right Upper limb tension test: Negative C/S Radiculapathy - Left Spurlings: Negative C/S Radiculapathy - Right Spurlings: Negative C/S Radiculapathy - Right Cervical distraction: Negative C/S Radiculapathy - Left Relief test: Negative C/S Radiculapathy - Right Relief test: Negative C/S Radiculapathy - Valsalva: Negative Sharp Ami: Negative Vertebral Artery Test: Negative Alar Ligament Test: Negative R Shoulder External Rotation Lag Test - RC Tear: Negative R Shoulder Supine Impingement Test - RC Tear: Negative R Shoulder Lift Off Test - Subscapular Tear: Negative R Shoulder Drop Sign - IS Test: Negative R Shoulder Empty Can - SS: Negative R Shoulder Belly Press - SupScap: Negative R Shoulder Neer - Impingement: Negative R Shoulder Bennett Tony - Impingement: Negative R Shoulder AC Resisted - AC: Negative R Shoulder Shrug Sign - OA/Adhesive Capsulitis: Negative L Shoulder External Rotation Lag Test - RC Tear: Negative L Shoulder Supine Impingement Test - RC Tear: Negative L Shoulder Lift Off Test - Subscapular Tear: Negative L Shoulder Empty Can - SS: Negative L Shoulder Belly Press - SupScap: Negative L Shoulder Neer - Impingement: Negative L Shoulder Bennett Tony - Impingement: Negative L Shoulder AC Resisted - AC: Negative L Shoulder Lateral Scapular Slide Test - Scap Dysfunction: Negative - Goals Goal 1:: Provide patient with HEP for posture and cervical Goal Time Frame: 1 visit - Rehabilitation Potential Physical Therapy Diagnosis: Patient displays with decrease cervical ROM with pain in arms with posture affects ADLS Rehabilitation Potential: Good - Anticipated Interventions Patient/Client Instruction: Educate patient on: Condition, Plan of Care For the Purpose of:: To decrease pain, Other Other: HEP Thank you for the opportunity to evaluate your patient. For Medicare and Medicare HMO plans, please review the plan of care and approve it. It will need to be FAXED BACK to us at [phone] for Medicare purposes. For Medicare only, by signing this I certify the plan of care. Please let me know if there are questions or concerns regarding this plan of care. Physician Signature: Date:
== END 2021-11-09 19:00 | disposition home or self-care (01) ==
LOC: PT 10:17
PROVIDERS: PCP Family Medicine; Referring Provider Family Medicine; Visit Provider Family Medicine
DX: M50.323 Other cervical disc degeneration at C6-C7 level (principal); M25.519 Pain in unspecified shoulder
CPT/HCPCS: 97110; 97162

== ENCOUNTER 2022-02-18 11:56 | Outpatient (CLI) | payer MEDICARE, SELFPAY ==
[2022-02-18 15:00] LABS: Absolute Lymphocyte Count 1.82 X10^3/uL (0.83-4.51); Basophil# 0.04 X10^3/uL; Basophil% 0.7 % (0-1); Eosinophil# 0.07 X10^3/uL; Eosinophils% 1.3 % (0-5); Hematocrit 36.1 % (37-47); Lymphocyte # 1.82 X10^3/ul (0.83-4.51); Lymphocyte % 33.7 % (19-41); Mean Corp Hgb Conc 33.2 g/dL (32-36); Mean Corpuscular Hgb 29.9 pg (27.0-32.0); Monocyte# 0.42 X10^3/uL; Monocyte% 7.8 % (0-10); NRBC Flagged by Analyzer 0 % (0-5); Neutrophil # 3.03 X10^3/uL (2.7-7.7); Neutrophil % 56.1 % (47-70); Platelet Count 205 K/mm3 (150-450); RBC Distribution Width CV 13.4 % (11.6-14.6); RBC Distribution Width SD 44.4 fl (35.1-43.9); Red Blood Count 4.01 M/mm3 (4.2-5.4); White Blood Count 5.4 K/mm3 (4.4-11.0)
[2022-02-18 15:25] LABS: ALB/GLOB Ratio 1.5 RATIO (0.9-2.4); AST(SGOT) 15 U/L (15-37); Alanine Aminotransfer ALT/SGPT 18 U/L (13-56); Albumin, Serum 4.1 g/dL (3.2-5.0); Alkaline Phosphatase 82 U/L (45-117); Anion Gap 7 (5-15); BUN 18 mg/dL (7-18); BUN/Creat Ratio 25.7 RATIO (10-20); Calcium,Total 9.6 mg/dL (8.5-10.1); Chloride 109 mmol/L (98-107); EST Glomerular Filtration Rate 85 mL/min (>60); Est Glom Filt Rate - Afr Amer 103 mL/min (>60); Globulin 2.8 g/dL (2.2-4.2); Glucose 95 mg/dL (74-106); Potassium 4.3 mmol/L (3.5-5.1); Protein, Total 6.9 g/dL (6.4-8.2); Sodium Level 140 mmol/L (136-145)
== END 2022-02-18 23:59 | disposition home or self-care (01) ==
PROVIDERS: PCP Family Medicine; Referring Provider Family Medicine; Visit Provider Nurse Practitioner Family
DX: K92.1 Melena (principal)
CPT/HCPCS: 36415; 80053; 85025

== ENCOUNTER → 2022-04-01 | Outpatient (CLI) | payer MEDICARE, SELFPAY ==
--- NOTE | 2022-04-01 14:08 | BD_ITS ---
STUDY: DUAL ENERGY X-RAY ABSORPTIOMETRY / DXA REASON FOR EXAM: Female, 81 years old. 733.90OsteopeniaBONE DENSITY REASON FOR EXAM TECHNIQUE: Bone Mineral Density (BMD) measurements of lumbar spine and bilateral hips were obtained. COMPARISON: Comparison is made with prior study dated 10/10/2019. FINDINGS: Lumbar Spine (L1-L4): g/cm2 (0.768) / T-score (-1.9) / Z-score (0.6) Findings are suggestive of osteopenia with a moderate fracture risk. Left Femur Total: g/cm2 (0.769) / T-score (-1.4) / Z-score (0.7) Left Femoral Neck: g/cm2 (0.629) / T-score (-2.0) / Z-score (0.4) Right Femur Total: g/cm2 (0.739) / T-score (-1.7) / Z-score (0.5) Right Femoral Neck: g/cm2 (0.613) / T-score (-2.1) / Z-score (0.2) The T-Scores on the most recent prior examination were: Lumbar Spine (L1-L4): There has been worsening of bone density since the previous examination. Left Femur Total: which represents a worsening of 8.8%. Right Femur Total: which represents a worsening of 6.5%. BD/Dexa Bone Density Study IMPRESSION: The patient is considered osteopenic as outlined below according to World Brad Organization (WHO) criteria with a moderate fracture risk. There has been worsening of bone density since the previous examination. Reference Information: The T-score is the number of standard deviations above or below the standard which is normal for young adults at their peak bone mineral density. The World Health Organization (WHO) interprets the T-scores as follows: Above -1 Normal bone density Between -1 and -2.5 Osteopenia Equal to / or below -2.5 Osteoporosis As a practical clinical guideline, osteopenia may be graded as follows: Mild -1 through -1.5 Moderate -1.6 through -2.0 Severe -2.1 through -2.4 The Z-score is the number of standard deviations above or below age-matched controls. A Z-score of less than -1.5 would be considered abnormal. References: 1. NIH Osteoporosis and Related Bone Diseases www osteo.org 2. International Society for Clinical Densitometry www iscd.org 3. National Osteoporosis Foundation www nof.org Electronically Signed: Fady Ryder MD at 15:43 EDT ,
== END | disposition home or self-care (01) ==
LOC: OPBD 14:06
PROVIDERS: PCP Family Medicine; Visit Provider Family Medicine
DX: M85.89 Other specified disorders of bone density and structure, multiple sites (principal)
CPT/HCPCS: 77080

== ENCOUNTER → 2022-06-30 | Outpatient (CLI) | payer MEDICARE, SELFPAY ==
--- NOTE | 2022-06-30 15:59 | BI_ITS ---
MAMMOGRAPHY - BILATERAL SCREENING REASON FOR EXAM: Female, 81 years old. Routine annual screening examination. PERTINENT HISTORY: Non-contributory. TECHNIQUE: Digital bilateral breast christiano (3D mammographic acquisition) in the CC and MLO projections. 2-D mediolateral oblique (MLO) and craniocaudad (CC) views of both breasts were obtained. CAD: Full Field Digital Mammography with Computer Added Detection was performed. COMPARISON: Comparison is made with prior study 06/21/2019 and 04/04/2018. FINDINGS: Breast Composition: There are scattered areas of fibroglandular density. There are no dominant masses or suspicious calcifications. Stable small benign-appearing bilateral axillary lymph nodes. No other significant abnormalities are identified. There has been no significant change since the prior study. BI/SCRN MAMM (CAD)W/CHRISTIANO BILAT IMPRESSION: Stable bilateral screening mammogram. Yearly follow-up mammogram recommended. (A) ASSESSMENT CATEGORY: BIRADS Category 2: Benign. A letter regarding these results will be sent to the patient by the facility within 30 days. Approximately 10% of breast cancers are not detected by mammography. A normal mammogram should not delay biopsy of a clinically suspicious abnormality. [id number] Electronically Signed: Fady Ryder MD at 8:32 EDT ,
== END | disposition home or self-care (01) ==
LOC: OPBI 15:58
PROVIDERS: PCP Family Medicine; Visit Provider Obstetrics & Gynecology
DX: Z12.31 Encounter for screening mammogram for malignant neoplasm of breast (principal)
CPT/HCPCS: 77063; 77067

== ENCOUNTER → 2022-07-02 | Outpatient (CLI) | payer MEDICARE, SELFPAY ==
--- NOTE | 2022-07-02 12:54 | RAD_ITS ---
STUDY: X-RAY CHEST REASON FOR EXAM: Female, 81 years old. BRONCHITIS TECHNIQUE: PA and lateral views of the chest. COMPARISON: 04/29/2020 FINDINGS: The lungs are clear and expanded. There is no demonstrated pleural abnormality. Normal size heart. Normal mediastinum and sabina. Normal visualized pulmonary arteries. Normal visualized aortic arch and descending thoracic aorta. Normal visualized thoracic spine. Normal visualized ribs, clavicles, and shoulders. There is no demonstrated abnormality of the visualized soft tissue structures of the upper abdomen. RAD/Chest PA and Lateral IMPRESSION: Normal x-ray examination of the chest. Electronically Signed: Pelon Mc DO at 0:49 EDT ,
== END | disposition home or self-care (01) ==
LOC: MTRAD 12:53
PROVIDERS: PCP Family Medicine; Referring Provider Family Medicine; Visit Provider Family Medicine
DX: J40 Bronchitis, not specified as acute or chronic (principal)
CPT/HCPCS: 71046

== ENCOUNTER → 2022-10-05 | Outpatient (CLI) | payer MEDICARE, SELFPAY ==
[2022-10-05 17:53] LABS: Absolute Lymphocyte Count 2.17 X10^3/uL (0.83-4.51); Absolute Neutrophil Count 2.2 X10^3/uL (2.0-7.7); Basophil# 0.05 X10^3/uL; Eosinophil# 0.16 X10^3/uL; Eosinophils% 3.2 % (0-5); Hematocrit 36.1 % (37-47); Hemoglobin 12.2 g/dL (12.0-15.0); Lymphocyte # 2.17 X10^3/ul (0.83-4.51); Lymphocyte % 43.5 % (19-41); Mean Corp Hgb Conc 33.8 g/dL (32-36); Mean Corpuscular Hgb 30.3 pg (27.0-32.0); Mean Corpuscular Volume 89.6 fL (81-99); Mean Platelet Vol. 10.6 fl (6.2-12.0); Monocyte# 0.44 X10^3/uL; Monocyte% 8.8 % (0-10); NRBC Flagged by Analyzer 0 % (0-5); Neutrophil # 2.16 X10^3/uL (2.7-7.7); Neutrophil % 43.3 % (47-70); Platelet Count 182 K/mm3 (150-450); RBC Distribution Width CV 13.2 % (11.6-14.6); RBC Distribution Width SD 43.9 fl (35.1-43.9); Red Blood Count 4.03 M/mm3 (4.2-5.4)
[2022-10-05 18:34] LABS: ALB/GLOB Ratio 1.4 RATIO (0.9-2.4); AST(SGOT) 19 U/L (15-37); Alanine Aminotransfer ALT/SGPT 22 U/L (13-56); Albumin, Serum 3.7 g/dL (3.2-5.0); Alkaline Phosphatase 80 U/L (45-117); Anion Gap 8 (5-15); BUN 23 mg/dL (7-18); Calcium,Total 8.5 mg/dL (8.5-10.1); Chloride 108 mmol/L (98-107); Cholesterol 177 mg/dL (200); Creatinine, Serum 0.74 mg/dL (0.55-1.02); EST Glomerular Filtration Rate 80 mL/min (>60); Est Glom Filt Rate - Afr Amer 96 mL/min (>60); Globulin 2.7 g/dL (2.2-4.2); Glucose 94 mg/dL (74-106); High Density Lipoprotein 72 mg/dL; Potassium 4.1 mmol/L (3.5-5.1); Protein, Total 6.4 g/dL (6.4-8.2); Sodium Level 142 mmol/L (136-145); Triglycerides 188 mg/dL; Very Low Density Lipoprotein 38 mg/dL (5-40)
== END | disposition home or self-care (01) ==
LOC: MFPLAB 16:54
PROVIDERS: PCP Family Medicine; Referring Provider Family Medicine; Visit Provider Family Medicine
DX: E78.00 Pure hypercholesterolemia, unspecified (principal); M85.80 Other specified disorders of bone density and structure, unspecified site
CPT/HCPCS: 36415; 80053; 80061; 82306; 85025

== ENCOUNTER → 2022-10-06 | Outpatient (CLI) | payer MEDICARE, SELFPAY ==
--- NOTE | 2022-10-06 08:04 | CDU_ITS ---
Reason For Study: Carotid Stenosis Rt. Velocities/BP Lt. Velocities/BP Prox CCA 51/11 cm/sec. Prox CCA 108/14 cm/sec. Mid CCA 62/16 cm/sec. Mid CCA 55/11 cm/sec. Dist CCA 54/15 cm/sec. Dist CCA 59/16 cm/sec. Prox ICA 56/13 cm/sec. Prox ICA 56/13 cm/sec. Mid ICA 56/19 cm/sec. Mid ICA 66/22 cm/sec. Dist ICA 80/21 cm/sec. Dist ICA 93/30 cm/sec. Rt. ICA/CCA = 1.3. Lt. ICA/CCA = 1.7. Prox ECA 67/8 cm/sec. Prox ECA 83/11 cm/sec. Rt. Vert. 65/19 cm/sec. Lt. Vert. 72/15 cm/sec. Right Extracranial There is heterogeneous, irregular atherosclerotic plaque noted in the right common carotid artery. There is heterogeneous, smooth atherosclerotic plaque noted in the right internal carotid artery. There is no significant atherosclerotic plaque noted in the right external carotid artery. Antegrade flow is noted in the right vertebral artery. Left Extracranial There is heterogeneous, irregular atherosclerotic plaque noted in the left common carotid artery. There is heterogeneous, irregular atherosclerotic plaque noted in the left internal carotid artery. There is heterogeneous, irregular atherosclerotic plaque noted in the left external carotid artery. Antegrade flow is noted in the left vertebral artery. Procedure Carotid Duplex [id number]. This is a Carotid Duplex examination using B-mode, color flow and specral Doppler. Exam performed in department. VL/Carotid Duplex Ultrasound Interpretation Summary At the proximal right internal carotid artery with less than 50% stenosis Less than 50% stenosis right external carotid artery Minimal irregular plaque at the proximal left internal carotid artery with less than 50% stenosis Less than 50% stenosis left external carotid artery Patent and antegrade vertebral arteries bilaterally No change from the previous examination of October 02, 2019 Ordering Physician: Schinner, Shant E Referring Physician: Shant Sommers Performed By: Kimber Lombardo RDCS, RVT
--- NOTE | 2022-10-06 08:04 | ECHOD_ITS ---
Reason For Study: SOB Procedure This was a 2D Doppler, Color Flow transthoracic echocardiogram. Exam performed in department. Left Ventricle Normal LV size. Moderate concentric left ventricular hypertrophy. Left ventricular systolic function is normal. The estimated ejection fraction is 65 %. Stage 2 diastolic dysfunction. No regional wall motion abnormalities noted. Right Ventricle Normal RV size. Normal systolic function. Atria Normal left atrium. Normal right atrium. Mitral Valve Mild diffuse mitral valve thickening. Mild (1+) eccentric mitral valve insufficiency. Tricuspid Valve Normal tricuspid valve. Mild tricuspid valve insufficiency. Pulmonary artery systolic pressure is 30 mmHg. Aortic Valve Trisinus/trileaflet aortic valve. Mild diffuse aortic valve thickening. Pulmonic Valve Normal pulmonic valve. Great Vessels Normal aortic root. The pulmonary artery is normal size. Normal inferior vena cava. Pericardium/Pleural No pericardial effusion. MMode/2D Measurements & Calculations LVIDd: 3.9 cm IVSd: 1.5 cm LVOT diam: 2.0 cm LVIDs: 2.5 cm LVPWd: 1.3 cm LVOT area: 3.0 cm2 RVDd: 3.6 cm FS: 34.8 % Ao root diam: 3.2 cm LAV(MOD-bp): 71.2 ml LA A4 area: 22.6 cm2 LA dimension: 4.2 cm LAV(MOD-bp) Indexed: 36.6 ml/m2 LAV(MOD-sp2): 66.7 ml LAV(MOD-sp4): 74.3 ml RA A4 area: 14.7 cm2 Time Measurements MV dec time: 0.28 sec Doppler Measurements & Calculations MV E max ash: 91.7 cm/sec Lat Peak E' Ash: 7.3 cm/sec Med Peak E' Ash: 5.6 cm/sec MV A max ash: 88.8 cm/sec E/E' lat: 12.7 E/E' med: 16.5 MV E/A: 1.0 MV V2 max: 99.0 cm/sec MV P1/2t max ash: 89.8 cm/sec Ao V2 max: 173.3 cm/sec MV max P.9 mmHg MV P1/2t: 85.9 msec Ao max P.1 mmHg MV V2 mean: 55.1 cm/sec MV dec slope: 306.3 cm/sec2 Ao V2 mean: 113.8 cm/sec MV mean P.4 mmHg Ao mean P.1 mmHg MV V2 VTI: 35.5 cm MVA(P1/2t): 2.6 cm2 Ao V2 VTI: 43.4 cm MVA(VTI): 3.0 cm2 AV (velocity ratio): 0.83 AYLEEN(I,D): 2.5 cm2 AYLEEN(V,D): 2.2 cm2 LV V1 max: 129.6 cm/sec SV(LVOT): 107.7 ml PA V2 max: 75.5 cm/sec LV V1 max P.7 mmHg LV V1 mean P.8 mmHg LV V1 mean: 91.7 cm/sec LV V1 VTI: 36.0 cm TR max ash: 249.3 cm/sec TR max P.1 mmHg ECHO/Echo Complete Interpretation Summary Normal LV size. Moderate concentric left ventricular hypertrophy. Left ventricular systolic function is normal. The estimated ejection fraction is 65 %. Stage 2 diastolic dysfunction. Ordering Physician: Shant Sommers Referring Physician: Shant Sommers Performed By: Hai Cruz RCS
== END | disposition home or self-care (01) ==
LOC: CVS 07:59
PROVIDERS: PCP Family Medicine; Visit Provider Family Medicine
DX: I65.23 Occlusion and stenosis of bilateral carotid arteries (principal); R06.02 Shortness of breath
CPT/HCPCS: 93306; 93880

== ENCOUNTER → 2022-10-26 | Outpatient (CLI) | payer MEDICARE, SELFPAY ==
--- NOTE | 2022-10-26 13:12 | STRESSREP_ITS ---
Stress Test Report Date: Procedure: Pharmacologic stress nuclear imaging study Indications: Shortness of breath/dyspnea; abnormal ECG Consent: Per the patient Procedure: The patient underwent pharmacologic (Regadenoson 0.4mg ) evaluation with a peak heart rate of 85 beats per minute (61%predicted maximal heart rate) and a resting blood pressure of 140/90mmHg and a peak blood pressure of 140/90 mmHg. The baseline ECG demonstrated sinus bradycardia; right bundle branch block pattern. The peak pharmacologic ECG demonstrated no obvious ECG changes. There was an isolated PVC during recovery. There was no complaint of chest discomfort during pharmacologic infusion or recovery. The examination was discontinued secondary to completion of protocol. Impression: 1. Pharmacologic (Regadenoson) evaluation 2. Peak pharmacologic ECG with continued right bundle branch block pattern with no obvious ECG changes. 3. There was an isolated PVC during recovery. 4. Nuclear images pending Myocardial perfusion imaging study: Technique: The patient was injected with 15.0 millicuries of technetium 99m Cardiolite and subsequently rest SPECT Cardiolite nuclear imaging was obtained in the horizontal long, vertical long, and short axis views. The patient underwent pharmacologic (Regadenoson) evaluation with a peak heart rate of 85 beats per minute (61% percent predicted maximal heart rate) and a resting blood pressure of 140/90 mmHg and a peak blood pressure of 140/90 mmHg. The patient was injected with 45.0 millicuries of technetium 99m Cardiolite and subsequently stress SPECT Cardiolite nuclear imaging was obtained in the horizontal long, vertical long, and short axis views. A gated Cardiolite study at peak stress was obtained. Interpretation: Rest and stress SPECT Cardiolite nuclear imaging status post realignment, normalization, and attenuation correction demonstrate relative uniform tracer uptake and myocardial perfusion appearing within normal limits. There is end systolic thickening and brightening. The gated Cardiolite study demonstrates myocardial thickening and inward wall motion. The reported LVEF is 68%. Impression: 1. Rest and stress SPECT Cardiolite nuclear imaging demonstrate relative uniform tracer uptake and myocardial perfusion appearing within normal limits. 2. The gated Cardiolite study reports an LVEF of 68%. This note was generated with Mob[employer] software. It may contain incorrect words, spelling, and punctuation that were not noted in checking the note before signing.
== END | disposition home or self-care (01) ==
LOC: CVS 07:04
PROVIDERS: PCP Family Medicine; Referring Provider Family Medicine; Visit Provider Family Medicine
DX: R06.02 Shortness of breath (principal); R94.31 Abnormal electrocardiogram [ECG] [EKG]
CPT/HCPCS: 78452; 93017; A9500; A4216; J2785

== ENCOUNTER 2023-05-24 21:06 | Emergency (ER) | payer MEDICARE, SELFPAY ==
[2023-05-24 21:07] VITALS: BP 227/96; PULSE 93; RESP 16; TEMP 36.6; O2SAT 98; BMI 33.3
--- NOTE | 2023-05-24 21:21 | CT_ITS ---
EXAM: CT CERVICAL SPINE WITHOUT INTRAVENOUS CONTRAST CLINICAL INDICATION: trauma TECHNIQUE: Helically acquired images were obtained of the cervical spine without intravenous contrast. 2D reformatted images were reviewed. This CT exam was performed using one or more of the following dose reduction techniques: automated exposure control, adjustment of the mA and/or kV according to patient size, and/or use of iterative reconstruction technique. COMPARISON: No relevant prior studies available. FINDINGS: VERTEBRAE: See below. DISCS/SPINAL CANAL/NEURAL FORAMINA: There is disc space narrowing at C3-4, C5-6 and C6-7. There is left bony neural foraminal narrowing at C3-4. There is bilateral bony neural foraminal narrowing at C4-5 and C5-6. SOFT TISSUES: Unremarkable. No prevertebral soft tissue swelling. LYMPH NODES: Unremarkable. No cervical adenopathy. LUNG APICES: Unremarkable as visualized. Clear. CT/Spine Cervical without Contras IMPRESSION: 1. No acute osseous abnormalities. 2. Multilevel degenerative change with disc space narrowing and bony neural foraminal narrowing. Electronically Signed: Vadim Hernandez MD at 21:57 EDT ,
--- NOTE | 2023-05-24 21:21 | CT_ITS ---
EXAM: CT HEAD WITHOUT INTRAVENOUS CONTRAST CLINICAL INDICATION: trauma TECHNIQUE: Multiple axial images were obtained of the head without intravenous contrast. This CT exam was performed using one or more of the following dose reduction techniques: automated exposure control, adjustment of the mA and/or kV according to patient size, and/or use of iterative reconstruction technique. COMPARISON: 04/29/2020 FINDINGS: BRAIN AND EXTRA-AXIAL SPACES: The ventricular system and cortical sulci are mildly enlarged in size. There is hypoattenuation in the periventricular white matter. No intra- or extra-axial hemorrhage. No evidence of acute infarct. No intracranial mass or mass effect. There is preservation of the desai/white matter interface. Posterior fossa structures are unremarkable. Basal cisterns are patent. BONES/JOINTS: Unremarkable. No discrete lytic or blastic abnormalities. SOFT TISSUES: There is a scalp hematoma over the posterior calvarium. SINUSES: Unremarkable as visualized. Clear. MASTOID AIR CELLS: Unremarkable. Clear. ORBITS: Visualized globes, extraocular muscles, optic nerves and retrobulbar fat appear unremarkable. CT/Brain/Head without Contrast IMPRESSION: 1. No acute intracranial abnormality. There has been no significant change from the reference examination. There is a posterior scalp hematoma. 2. Stable underlying senescent change with small vessel ischemia. Electronically Signed: Vadim Hernandez MD at 21:54 EDT ,
--- NOTE | 2023-05-24 21:23 | EX.ED.GENINJ ---
HPI History of Present Illness Chief Complaint: Head Injury Informant: patient Onset/Context/Timing Onset: Today Mechanism/Context: Fall Narrative Narrative: Patient presents via EMS secondary to head injury. She was trying to bring her trash bins into her garage when she tripped backwards striking the back of her head on concrete. She did not lose consciousness. She has bleeding noted to the posterior scalp. She has a mild headache and is starting to get some neck stiffness. She denies vision change, nausea, or vomiting. [facility] Medical History Hyperlipidemia Hypertension Home Medications lovastatin 40 mg tablet 40 mg PO DAILY 04/29/20 [History Last Taken Unknown] cholecalciferol (vitamin D3) 50 mcg (2,000 unit) capsule 50 mcg PO DAILY 06/23/22 [History Last Taken Unknown] lisinopril 10 mg tablet 10 mg PO DAILY 06/23/22 [History Last Taken Unknown] Allergy/AdvReac Type Severity Reaction Status Date / Time No Known Allergies Allergy Verified 05/24/23 21:10 Social History Smoking Status: Never smoker alcohol intake: never substance use type: does not use caffeine: Yes what type of physical activity do you participate in: none seatbelt use: always do you feel safe at home: Yes additional social history: ROS ROS ED Constitutional Constitutional ED: Denies chills or fever(s) Eyes Eyes: Denies change in vision or discharge from eye(s) ENT ENT ED: Denies discharge from eye(s), rhinorrhea or sore throat Cardiovascular Cardiovascular: Denies chest pain Respiratory/Chest Respiratory/Chest: Denies cough or dyspnea Gastrointestinal Gastrointestinal: Denies abdominal pain, nausea or vomiting Genitourinary Genitourinary ED: Denies dysuria Musculoskeletal Musculoskeletal: Reports neck pain; Denies back pain or extremity pain Integumentary Reports other Details: Scalp laceration ; Denies Abrasions or rash Neurologic Neurologic: Reports headache(s); Denies weakness Psychiatric Psychiatric: Denies anxiety or depression Allergic/Immunologic Allergic/Immunologic ED: Denies lip swelling or urticaria EXAM Physical Exam Const Vital Signs: 05/24/23 21:07 05/24/23 21:11 Temperature 97.8 F Temperature Source Temporal Pulse Rate 93 Respiratory Rate 16 Respiratory Effort Normal Non-Labored Respiratory Depth Normal Respiratory Pattern Normal Blood Pressure 227/96 H Blood Pressure Mean 139 Pulse Ox 98 Oxygen Delivery Method Room Air Positive well nourished and well developed General Appearance ED: well developed HEENT HEENT Narrative: 3 cm scalp laceration noted over the posterior parietal scalp. Bleeding controlled at this time. trauma Eyes EOMs intact bilaterally Neck Neck Narrative: Mild C-spine tenderness. No step-offs. Chest Wall inspection of chest normal and palpation of chest normal Resp normal respiratory effort and clear to auscultation bilaterally Cardio regular rhythm Rate: regular rate GI non-tender Palpation: soft Back/Spine normal to inspection Extremity normal to inspection and full ROM Neuro oriented x3, moves all extremities and no sensory deficits noted Motor Exam: strength 5/5 throughout Psych mental status grossly normal MDM MDM MDM Narrative Medical decision making narrative: Patient given Tylenol along with a tetanus update. CT scan of the head and C-spine obtained to evaluate for fracture, intracranial bleed. Radiography Diagnostic Testing: Clinical Impression(s) from Imaging Studies Brain CT 05/24/23 21:21 IMPRESSION: 1. No acute intracranial abnormality. There has been no significant change from the reference examination. There is a posterior scalp hematoma. 2. Stable underlying senescent change with small vessel ischemia. Electronically Signed: Vadim Hernandez MD at 21:54 EDT , Cervical Spine CT 05/24/23 21:21 IMPRESSION: 1. No acute osseous abnormalities. 2. Multilevel degenerative change with disc space narrowing and bony neural foraminal narrowing. Electronically Signed: Vadim Hernandez MD at 21:57 EDT , Treatment and Re-Evaluation Narrative: CT scan of the C-spine reveals arthritic changes with no acute bony fracture. CT of the brain reveals no acute intracranial abnormality. Scalp hematoma noted. 10 cc of 1% lidocaine with epinephrine is infused locally around the laceration. Wound is cleansed There is a small arterial bleed in the center of the laceration that is intermittently spurting. 4-0 Vicryl is used to tie this off. 7 shade were then placed around to close the laceration. Discharge Plan Triage Chief Complaint: Head Injury ED Provider: Winter Michel Dx/Rx/DC Orders Clinical Impression: Hematoma, Fall, Laceration of scalp Instructions: ED Head Injury (Adult), ED Laceration Scalp Stitches or [place] Prescriptions: No Action lisinopril 10 mg tablet 10 mg PO DAILY cholecalciferol (vitamin D3) 50 mcg (2,000 unit) capsule 50 mcg PO DAILY lovastatin 40 MG tablet 40 mg PO DAILY Primary Care Provider: hSant Sommers Referrals: Shant Sommers MD [Primary Care Provider] - 7 Days for suture removal Disposition Disposition: Home, Self Care
[2023-05-24] MEDS: Acetaminophen 500 MG Tablet 1000 MG PO (21:49)
[2023-05-24] MEDS: Diphth,Pertuss(Acell),Tet Vac 0.5 ML Vial IM (21:50)
[2023-05-24] MEDS: Lidocaine 1% /Epi 1:100 (20ml) 20 ML Vial INFILT (22:31)
== END 2023-05-24 22:41 | disposition home or self-care (01) ==
PROVIDERS: Emergency Provider Emergency Medicine; PCP Family Medicine; Visit Provider Emergency Medicine
DX: S01.01XA Laceration without foreign body of scalp, initial encounter (principal); I10 Essential (primary) hypertension; E78.5 Hyperlipidemia, unspecified; W01.0XXA Fall on same level from slipping, tripping and stumbling without subsequent striking against object, initial encounter; Z23 Encounter for immunization
CPT/HCPCS: 12013; 70450; 72125; 90471; 90715; 99284

== ENCOUNTER 2023-05-26 13:58 | Emergency (ER) | payer MEDICARE, SELFPAY ==
[2023-05-26 13:59] VITALS: BP 211/87; PULSE 56; RESP 14; TEMP 36.1; O2SAT 93
[2023-05-26 14:08] VITALS: BP 189/93; PULSE 64; RESP 18; O2SAT 96
--- NOTE | 2023-05-26 14:10 | CT_ITS ---
STUDY: CT BRAIN WITHOUT CONTRAST REASON FOR EXAM: Female, 82 years old. FELL 2 DAYS AGO, UNBALANCED, NAUSEA RADIATION DOSAGE (If Supplied By Facility): CTDIvol = ( 44.99 ) mGy, DLP = ( 796.11 ) mGycm TECHNIQUE: Transaxial CT imaging of the brain was performed without administration of intravenous contrast material. Individualized dose optimization techniques were used for this CT. COMPARISON: Head CT dated May 24, 2023 FINDINGS: Since the prior study of May 24, 2023 skin shade have been placed in the scalp laceration and hematoma overlying the left posterior aspect of the parietal bone. The underlying scalp hematoma is also much smaller in size with only mild edema remaining. No visualized skull fracture or subdural hematoma. Normal soft tissue structures. Normal calvarium. There is mild cerebral atrophy with widening of the extra-axial spaces and ventricular dilatation. There are areas of decreased attenuation within the white matter tracts of the supratentorial brain, consistent with microvascular disease changes. Normal basal ganglia and thalami. Normal brainstem. Normal cerebellum. There is no intracranial hemorrhage. There are no findings of an acute ischemic infarction. Normal visualized paranasal sinuses. CT/Brain/Head without Contrast IMPRESSION: 1. Since the prior study of May 24, 2023 skin shade have been placed in the scalp laceration and hematoma overlying the left posterior aspect of the parietal bone. The underlying scalp hematoma is also much smaller in size with only mild edema remaining. No visualized skull fracture or subdural hematoma. Electronically Signed: Emiliano De La Fuente MD at 15:01 EDT ,
--- NOTE | 2023-05-26 14:10 | EX.ED.DYSGE1 ---
HPI <DEVAUGHN Beckham - Last Filed: 05/26/23 16:17> History of Present Illness Chief Complaint: Dizziness Narrative Narrative: 82-year-old female seen here 2 days ago after mechanical fall carrying her trash can in. She had slipped backwards and struck the back of her head. No LOC or blood thinners. Had negative CT scans of her head and neck at that time but since then has felt dizzy described as room spinning and difficulty ambulating. She is had to use a cane and has not really gotten up much in her home. She lives alone but her daughter from [place] has been staying with her. Patient could not walk in from the car and had to be brought in by wheelchair. She denies headache, nausea or vomiting but has not had much of an appetite. Denies focal motor or sensory changes. [facility] <DEVAUGHN Beckham - Last Filed: 05/26/23 16:17> [facility] Medical History Hyperlipidemia Hypertension Home Medications lovastatin 40 mg tablet 40 mg PO DAILY 04/29/20 [History Last Taken 05/26/23] cholecalciferol (vitamin D3) 50 mcg (2,000 unit) capsule 50 mcg PO DAILY 06/23/22 [History Last Taken 05/25/23] lisinopril 10 mg tablet 10 mg PO DAILY 06/23/22 [History Last Taken 05/26/23] aspirin 325 mg tablet 650 mg PO DAILY HEART HEAL 05/26/23 [History Last Taken 05/26/23] diclofenac sodium 75 mg tablet,delayed release 75 mg PO DAILY . 05/26/23 [History Last Taken 05/26/23] meclizine 25 mg tablet 25 mg PO 4X/DAY PRN PRN Dizziness #20 tabs 05/26/23 [Rx Last Taken Unknown] Allergy/AdvReac Type Severity Reaction Status Date / Time No Known Allergies Allergy Verified 05/26/23 14:05 Social History Smoking Status: Never smoker alcohol intake: never substance use type: does not use caffeine: Yes what type of physical activity do you participate in: none seatbelt use: always do you feel safe at home: Yes additional social history: ROS <DEVAUGHN Beckham - Last Filed: 05/26/23 16:17> ROS ED ROS Narrative Constitutional: Negative for fever, chills, malaise. Eyes: Negative for visual change. CVS: Negative for palpitations, chest pain, syncope. Respiratory: Negative for shortness of breath. GI: Negative for abdominal pain, nausea, vomiting. Neuro: Negative for headache, motor/sensory dysfunction. EXAM <DEVAUGHN Beckham Last Filed: 05/26/23 16:17> Physical Exam Narrative Exam Narrative: CONST: Patient sitting in no acute distress. EYES: Normal inspection. PERRLA, EOMI, rightward horizontal nystagmus. ENT: Normal inspection, moist mucous membranes. NECK: Normal inspection. No meningismus. RESP: No respiratory distress, CTAB. CVS: Regular rate and rhythm, no murmur, no gallop. SKIN: Color normal, no rash, warm, dry, intact. EXTREMITIES: Normal appearance, no pedal edema. NEURO: Oriented x4. No upper or lower extremity drift, 5/5 strength, normal sensation, normal finger-nose and [id number]. PSYCH: Normal affect. Const Vital Signs: 05/26/23 13:59 05/26/23 14:06 05/26/23 14:08 Temperature 97 F L Temperature Source Temporal Pulse Rate 56 L 64 Respiratory Rate 14 18 Respiratory Effort Normal Non-Labored Respiratory Pattern Normal Blood Pressure 211/87 H 189/93 H Blood Pressure Mean 128 125 Pulse Ox 93 96 Oxygen Delivery Method Room Air Room Air 05/26/23 14:15 05/26/23 15:50 05/26/23 16:15 Temperature Temperature Source Pulse Rate 54 L 55 L Respiratory Rate 18 13 18 Respiratory Effort Respiratory Pattern Blood Pressure 189/93 H 174/72 H 150/109 H Blood Pressure Mean 125 106 Pulse Ox Oxygen Delivery Method Room Air Room Air <Dr. Torrey Bailey DO - Last Filed: 05/26/23 16:32> Physical Exam Const Vital Signs: 05/26/23 13:59 05/26/23 14:06 05/26/23 14:08 Temperature 97 F L Temperature Source Temporal Pulse Rate 56 L 64 Respiratory Rate 14 18 Respiratory Effort Normal Non-Labored Respiratory Pattern Normal Blood Pressure 211/87 H 189/93 H Blood Pressure Mean 128 125 Pulse Ox 93 96 Oxygen Delivery Method Room Air Room Air 05/26/23 14:15 05/26/23 15:50 05/26/23 16:15 Temperature Temperature Source Pulse Rate 54 L 55 L Respiratory Rate 18 13 18 Respiratory Effort Respiratory Pattern Blood Pressure 189/93 H 174/72 H 150/109 H Blood Pressure Mean 125 106 Pulse Ox Oxygen Delivery Method Room Air Room Air [facility] <DEVAUGHN Beckham - Last Filed: 05/26/23 16:17> [facility] Narrative Medical decision making narrative: History gathered from: Patient and daughter Patient had a closed head injury 2 days ago and yesterday started to develop room spinning and difficulty walking which worsened today. She denies headache or focal motor or sensory changes. She is awake and alert. BP is 211/87, heart rate 56, otherwise normal vital signs. She takes lisinopril. On exam she has posterior scalp shade. She has rightward nystagmus with no focal neurological deficits. It is possible she is having postconcussive symptoms but with her hypertension she also could be having hypertensive urgency/strokelike symptoms. She was given IV hydralazine and meclizine while labs were obtained. CT brain shows no acute findings and the scalp hematoma has decreased in size. CBC and BMP unremarkable. EKG is sinus bradycardia with RBBB which appears unchanged from previous. After medication patient states she feels improved. She was able to ambulate down the triana to the restroom without assistance and would like to go home. Her daughter is comfortable with this and one of her daughters will be staying with her tonight. I recommended she check her BP daily and see her primary care doctor but that if any symptoms worsen she should return to the ER. She was discharged in stable condition. Differential: Postconcussion vertigo, accelerated hypertension, hypertensive emergency, intracranial hemorrhage Attending note: Patient seen and evaluated with survey research center director. I perform my own [id number] evaluation. I agree with the plan of work-up. Patient presents 121 worsening vertigo symptoms since yesterday. Seen 2 days ago for mechanical fall with head injury. No anticoagulation medicines. No nausea or vomiting. Patient had normal CT 2 days ago. Also has GI symptoms reevaluation right sided cortisone nystagmus. No other focal deficits. GCS 15. repeat CT obtained negative. Patient with blood pressure 220 during my evaluation. Normal blood pressures 130s per patient. She is on lisinopril. Treated with IV hydralazine due to bradycardic. EKG sinus bradycardia in the 40s, no heart block. Labs were checked, meclizine given. Lab Data Labs: Laboratory Results - last 24 hr 05/26/23 15:12 WBC 10.1 RBC 4.13 L Hgb 12.4 Hct 37.9 MCV 91.8 MCH 30.0 MCHC 32.7 RDW Std Deviation 43.6 RDW Coeff of Rachel 13.1 Plt Count 179 MPV 11.0 Immature Gran % (Auto) 0.900 Neut % (Auto) 78.5 H Lymph % (Auto) 14.6 L Cecil % (Auto) 6.0 Eos % (Auto) 0.0 Baso % (Auto) 0.0 Absolute Neuts (auto) 7.9 H Absolute Lymphs (auto) 1.47 Nucleated RBC % 0 PT 13.5 INR 1.0 APTT 22.8 L Sodium 139 Potassium 4.2 Chloride 107 Carbon Dioxide 27.0 Anion Gap 5 BUN 29 H Creatinine 0.87 Est GFR (MDRD) Af Amer 80 Est GFR (MDRD) Non-Af 66 BUN/Creatinine Ratio 33.4 H Glucose 97 Calcium 8.7 Radiography Diagnostic Testing: Clinical Impression(s) from Imaging Studies Brain CT 05/26/23 14:10 IMPRESSION: 1. Since the prior study of May 24, 2023 skin shade have been placed in the scalp laceration and hematoma overlying the left posterior aspect of the parietal bone. The underlying scalp hematoma is also much smaller in size with only mild edema remaining. No visualized skull fracture or subdural hematoma. Electronically Signed: Emiliano De La Fuente MD at 15:01 EDT , EKG Initial EKG: Attestation: I personally reviewed and interpreted this EKG as follows: Comments: Sinus bradycardia at 42 bpm, RBBB, no acute ischemic changes Similar to EKG on 04/29/20 Prior EKG tracings: available for review Prior: Unchanged <Dr. Torrey Bailey, DO - Last Filed: 05/26/23 16:32> MDM MDM Narrative Medical decision making narrative: History gathered from: Patient and daughter Patient had a closed head injury 2 days ago and yesterday started to develop room spinning and difficulty walking which worsened today. She denies headache or focal motor or sensory changes. She is awake and alert. BP is 211/87, heart rate 56, otherwise normal vital signs. She takes lisinopril. On exam she has posterior scalp shade. She has rightward nystagmus with no focal neurological deficits. It is possible she is having postconcussive symptoms but with her hypertension she also could be having hypertensive urgency/strokelike symptoms. She was given IV hydralazine and meclizine while labs were obtained. CT brain shows no acute findings and the scalp hematoma has decreased in size. CBC and BMP unremarkable. EKG is sinus bradycardia with RBBB which appears unchanged from previous. After medication patient states she feels improved. She was able to ambulate down the triana to the restroom without assistance and would like to go home. Her daughter is comfortable with this and one of her daughters will be staying with her tonight. I recommended she check her BP daily and see her primary care doctor but that if any symptoms worsen she should return to the ER. She was discharged in stable condition. Differential: Postconcussion vertigo, accelerated hypertension, hypertensive emergency, intracranial hemorrhage Attending note: Patient seen and evaluated with survey research center director. I perform my own [id number]-[id number] evaluation. I agree with the plan of work-up. Patient presents 121 worsening vertigo symptoms since yesterday. Seen 2 days ago for mechanical fall with head injury. No anticoagulation medicines. No nausea or vomiting. Patient had normal CT 2 days ago. Also has GI symptoms reevaluation right sided cortisone nystagmus. No other focal deficits. GCS 15. repeat CT obtained negative. Patient with blood pressure 220 during my evaluation. Normal blood pressures 130s per patient. She is on lisinopril. Treated with IV hydralazine due to bradycardic. EKG sinus bradycardia in the 40s, no heart block. Labs were checked, meclizine given. Blood pressure improved, on reevaluation patient able to ambulate to restroom by herself with no return of symptoms. Prescription for symptom control with outpatient follow-up. Return precautions. Lab Data Attestation: I reviewed the patient's lab results. Labs: Laboratory Results - last 24 hr 05/26/23 15:12 WBC 10.1 RBC 4.13 L Hgb 12.4 Hct 37.9 MCV 91.8 MCH 30.0 MCHC 32.7 RDW Std Deviation 43.6 RDW Coeff of Rachel 13.1 Plt Count 179 MPV 11.0 Immature Gran % (Auto) 0.900 Neut % (Auto) 78.5 H Lymph % (Auto) 14.6 L Cecil % (Auto) 6.0 Eos % (Auto) 0.0 Baso % (Auto) 0.0 Absolute Neuts (auto) 7.9 H Absolute Lymphs (auto) 1.47 Nucleated RBC % 0 PT 13.5 INR 1.0 APTT 22.8 L Sodium 139 Potassium 4.2 Chloride 107 Carbon Dioxide 27.0 Anion Gap 5 BUN 29 H Creatinine 0.87 Est GFR (MDRD) Af Amer 80 Est GFR (MDRD) Non-Af 66 BUN/Creatinine Ratio 33.4 H Glucose 97 Calcium 8.7 Radiography Diagnostic Testing: Clinical Impression(s) from Imaging Studies Brain CT 05/26/23 14:10 IMPRESSION: 1. Since the prior study of May 24, 2023 skin shade have been placed in the scalp laceration and hematoma overlying the left posterior aspect of the parietal bone. The underlying scalp hematoma is also much smaller in size with only mild edema remaining. No visualized skull fracture or subdural hematoma. Electronically Signed: Emiliano De La Fuente MD at 15:01 EDT Reading Location ID and State: [address] [place] [address] , Service support , Discharge Plan Triage Chief Complaint: Dizziness ED Midlevel Provider: Merly Shi ED Provider: Torrey Bailey Dx/Rx/DC Orders Clinical Impression: Dizziness, Concussion, Chronic hypertension Instructions: After a Concussion Prescriptions: New meclizine 25 mg tablet 25 mg PO 4X/DAY PRN PRN (Reason: Dizziness) Qty: 20 0RF No Action lisinopril 10 mg tablet 10 mg PO DAILY cholecalciferol (vitamin D3) 50 mcg (2,000 unit) capsule 50 mcg PO DAILY lovastatin 40 MG tablet 40 mg PO DAILY diclofenac sodium 75 mg tablet,delayed release (DR/EC) 75 mg PO DAILY aspirin 325 mg tablet 650 mg PO DAILY Primary Care Provider: Shant Sommers Referrals: Shant Sommers MD [Primary Care Provider] - Activity Restrictions/Additional Instructions: Take meclizine as needed for dizziness. Follow-up with your doctor to have your blood pressure rechecked or buy a blood pressure cuff and take it once a day at home and write down the readings to take to your primary care's office. If your dizzy symptoms worsen or you have difficulty ambulating come back to the ER. Disposition Disposition: Home, Self Care Discharge Date/Time: 05/26/23 16:23
[2023-05-26 14:15] VITALS: BP 189/93; RESP 18
[2023-05-26] MEDS: Meclizine HCl 25 MG Tablet PO (14:58)
[2023-05-26] MEDS: hydrALAZINE 20 MG/ML Vial 10 MG IV (15:24)
[2023-05-26 15:27] LABS: Absolute Lymphocyte Count 1.47 X10^3/uL (0.83-4.51); Absolute Neutrophil Count 7.9 X10^3/uL (2.0-7.7); Hematocrit 37.9 % (37-47); Hemoglobin 12.4 g/dL (12.0-15.0); Lymphocyte # 1.47 X10^3/ul (0.83-4.51); Lymphocyte % 14.6 % (19-41); Mean Corp Hgb Conc 32.7 g/dL (32-36); Mean Corpuscular Volume 91.8 fL (81-99); Monocyte# 0.61 X10^3/uL; NRBC Flagged by Analyzer 0 % (0-5); Neutrophil # 7.92 X10^3/uL (2.7-7.7); Neutrophil % 78.5 % (47-70); Platelet Count 179 K/mm3 (150-450); RBC Distribution Width CV 13.1 % (11.6-14.6); RBC Distribution Width SD 43.6 fl (35.1-43.9); Red Blood Count 4.13 M/mm3 (4.2-5.4); White Blood Count 10.1 K/mm3 (4.4-11.0)
[2023-05-26 15:36] LABS: Prothrombin Time (Protime)PT. 13.5 SECONDS (11.7-14.9)
[2023-05-26 15:37] LABS: Partial Thromboplast Time 22.8 Seconds (24.1-36.2)
[2023-05-26 15:41] LABS: Anion Gap 5 (5-15); BUN 29 mg/dL (7-18); BUN/Creat Ratio 33.4 RATIO (10-20); Calcium,Total 8.7 mg/dL (8.5-10.1); Chloride 107 mmol/L (98-107); Creatinine, Serum 0.87 mg/dL (0.55-1.02); EST Glomerular Filtration Rate 66 mL/min (>60); Est Glom Filt Rate - Afr Amer 80 mL/min (>60); Glucose 97 mg/dL (74-106); Potassium 4.2 mmol/L (3.5-5.1); Sodium Level 139 mmol/L (136-145)
[2023-05-26 15:50] VITALS: BP 174/72; PULSE 54; RESP 13
[2023-05-26 16:15] VITALS: BP 150/109; PULSE 55; RESP 18
== END 2023-05-26 16:23 | disposition home or self-care (01) ==
PROVIDERS: Emergency Provider Emergency Medicine; PCP Family Medicine; Visit Provider Emergency Medicine
DX: R42 Dizziness and giddiness (principal); E78.5 Hyperlipidemia, unspecified; R00.1 Bradycardia, unspecified; I10 Essential (primary) hypertension; R26.2 Difficulty in walking, not elsewhere classified; Z79.82 Long term (current) use of aspirin; Z79.899 Other long term (current) drug therapy; I45.10 Unspecified right bundle-branch block; S06.0XAD Concussion with loss of consciousness status unknown, subsequent encounter; W01.0XXD Fall on same level from slipping, tripping and stumbling without subsequent striking against object, subsequent encounter
CPT/HCPCS: 70450; 80048; 85025; 85610; 85730; 93005; 96374; 99285; J7050; A4216

== ENCOUNTER → 2023-07-04 | Outpatient (CLI) | payer MEDICARE, SELFPAY ==
--- NOTE | 2023-07-04 10:03 | BI_ITS ---
MAMMOGRAPHY - BILATERAL SCREENING REASON FOR EXAM: Female, 82 years old. Routine annual screening examination. PERTINENT HISTORY: Non-contributory. TECHNIQUE: Digital bilateral breast christiano (3D mammographic acquisition) in the CC and MLO projections. 2-D mediolateral oblique (MLO) and craniocaudad (CC) views of both breasts were obtained. CAD: Full Field Digital Mammography with Computer Added Detection was performed. COMPARISON: Comparison is made with prior study June 30, 2022 and June 21, 2019. FINDINGS: Breast Composition: There are scattered areas of fibroglandular density. There are no dominant masses or suspicious calcifications. Stable small benign-appearing bilateral axillary lymph nodes. No other significant abnormalities are identified. There has been no significant change since the prior study. BI/SCRN MAMM (CAD)W/CHRISTIANO BILAT IMPRESSION: Stable bilateral screening mammogram. Yearly follow-up mammogram recommended. (A) ASSESSMENT CATEGORY: BIRADS Category 2: Benign. A letter regarding these results will be sent to the patient by the facility within 30 days. Approximately 10% of breast cancers are not detected by mammography. A normal mammogram should not delay biopsy of a clinically suspicious abnormality. [id number] Electronically Signed: Fady Ryder MD at 13:07 EDT ,
== END | disposition home or self-care (01) ==
LOC: OPBI 10:02
PROVIDERS: PCP Family Medicine; Referring Provider Nurse Practitioner Family; Visit Provider Nurse Practitioner Family
DX: Z12.31 Encounter for screening mammogram for malignant neoplasm of breast (principal)
CPT/HCPCS: 77063; 77067

== ENCOUNTER 2023-07-18 13:06 | Outpatient (RCR) | payer MEDICARE, SELFPAY ==
--- NOTE | 2023-07-18 13:39 | HP.PTEVAL2 ---
Patient's Visit Information Visit Information Visit Information: FRED RESTREPO is a 82 year old F referred to Physical Therapy by Dr. Shant Sommers MD with a diagnosis of . Date of Evaluation: Physical Therapist: Fredis Quinones, [place], OCS, CSCS Anticipated Interventions text: Thank you for the opportunity to evaluate your patient. For Medicare and Medicare HMO plans, please review the plan of care and approve it. It will need to be FAXED BACK to us at [phone] for Medicare purposes. For Medicare only, by signing this I certify the plan of care. Please let me know if there are questions or concerns regarding this plan of care. Physician Signature: Date:
--- NOTE | 2023-09-13 17:15 | HP.PT.NRP ---
Patient Information Patient Information: FRED RESTREPO was seen in my office for initial evaluation on 07/18/23. The following Plan of Care was established for this patient: POC Established Initial Frequency: 1-2x /Week Initial Duration: 2-4 Weeks Anticipated Interventions Patient/Client Instruction: Educate patient on: Condition and Plan of Care For the Purpose of:: To increase tolerance to activity/condition/position Therapeutic Exercise to Include: Balance training For the Purpose of:: To increase tolerance to activity/condition/position Last Seen Last Seen: This patient was last seen in our office 07/18/23. Pertinent comments regarding their Physical therapy will appear below: Pt seen one visit and treated, cancelled next visit in POC and did not reschedule. At this point, it has been over 6 weeks and I will discontinue him from my care. At this point I will be discontinuing this patient from physical therapy. I would be happy to see this patient again in the future if found appropriate by the physician. Thank you! Fredis Quinones, DPT, OCS, CSCS Balance/Gait/Functional tests Balance/Special Test Scores Functional Gait Assessment Score: 25 % Disability: 16.6700 Dizziness Score: 12
== END 2023-07-18 19:00 | disposition home or self-care (01) ==
LOC: PT 13:06
PROVIDERS: PCP Family Medicine; Referring Provider Family Medicine; Visit Provider Family Medicine
DX: H81.10 Benign paroxysmal vertigo, unspecified ear (principal)
CPT/HCPCS: 97161

== ENCOUNTER → 2023-08-12 | Outpatient (CLI) | payer MEDICARE, SELFPAY ==
[2023-08-12 17:34] LABS: Absolute Lymphocyte Count 1.91 X10^3/uL (0.83-4.51); Absolute Neutrophil Count 1.8 X10^3/uL (2.0-7.7); Basophil# 0.05 X10^3/uL; Basophil% 1.2 % (0-1); Eosinophil# 0.12 X10^3/uL; Eosinophils% 2.8 % (0-5); Hematocrit 36.1 % (37-47); Lymphocyte # 1.91 X10^3/ul (0.83-4.51); Mean Corp Hgb Conc 33.2 g/dL (32-36); Mean Corpuscular Hgb 29.9 pg (27.0-32.0); Mean Platelet Vol. 10.5 fl (6.2-12.0); Monocyte# 0.41 X10^3/uL; Monocyte% 9.4 % (0-10); NRBC Flagged by Analyzer 0 % (0-5); Neutrophil # 1.84 X10^3/uL (2.7-7.7); Neutrophil % 42.4 % (47-70); Platelet Count 184 K/mm3 (150-450); RBC Distribution Width CV 13.2 % (11.6-14.6); RBC Distribution Width SD 43.3 fl (35.1-43.9); Red Blood Count 4.01 M/mm3 (4.2-5.4); White Blood Count 4.3 K/mm3 (4.4-11.0)
[2023-08-12 17:44] LABS: Erythrocyte Sedimentation Rate 3 mm/hr (0-30)
[2023-08-12 18:21] LABS: Vitamin B12 335 pg/mL (211-911); Vitamin D,25 Hydroxy 31.4 ng/mL
[2023-08-12 18:39] LABS: ALB/GLOB Ratio 1.3 RATIO (0.9-2.4); AST(SGOT) 17 U/L (15-37); Alanine Aminotransfer ALT/SGPT 22 U/L (13-56); Albumin, Serum 3.8 g/dL (3.2-5.0); Alkaline Phosphatase 81 U/L (45-117); Anion Gap 4 (5-15); BUN 19 mg/dL (7-18); BUN/Creat Ratio 24.1 RATIO (10-20); Calcium,Total 8.8 mg/dL (8.5-10.1); Chloride 110 mmol/L (98-107); Creatinine, Serum 0.79 mg/dL (0.55-1.02); EST Glomerular Filtration Rate 74 mL/min (>60); Est Glom Filt Rate - Afr Amer 90 mL/min (>60); Globulin 2.9 g/dL (2.2-4.2); Glucose 114 mg/dL (74-106); Potassium 3.9 mmol/L (3.5-5.1); Protein, Total 6.7 g/dL (6.4-8.2); Sodium Level 139 mmol/L (136-145); T4 Free Direct 0.84 ng/dL (0.76-1.46); Thyroid Stim Hormone (TSH) 2.69 uIU/mL (0.358-3.74)
[2023-08-15 16:28] LABS: Hemoglobin A1c 4.7 % (3.8-5.6)
== END | disposition home or self-care (01) ==
LOC: MFPLAB 16:20
PROVIDERS: PCP Family Medicine; Visit Provider Family Medicine
DX: R41.3 Other amnesia (principal); R53.83 Other fatigue; E55.9 Vitamin D deficiency, unspecified; R73.09 Other abnormal glucose
CPT/HCPCS: 36415; 80053; 82306; 82607; 83036; 84439; 84443; 85025; 85652

== ENCOUNTER → 2023-10-14 | Outpatient (CLI) | payer MEDICARE, SELFPAY ==
[2023-10-14 17:38] LABS: Color, Urine Yellow (Yellow); Glucose, Dipstick Normal (Normal); Ketone-Dipstick 5 mg/dl (Negative); Leukocyte Esterase-Dipstick 25 /ul (Negative); Nitrite-Dipstick Negative (Negative); Occult Blood-Urine 150 /ul (Negative); Protein-Dipstick 15 mg/dl (Negative); Specific Gravity, Urine 1.025 (1.002-1.030); Urine Clarity Clear (Clear); Urine Urobilinogen 1 mg/dl (Normal)
[2023-10-14 17:39] LABS: Absolute Lymphocyte Count 1.99 X10^3/uL (0.83-4.51); Absolute Neutrophil Count 3.3 X10^3/uL (2.0-7.7); Basophil# 0.04 X10^3/uL; Basophil% 0.7 % (0-1); Eosinophil# 0.18 X10^3/uL; Hematocrit 34.5 % (37-47); Hemoglobin 11.3 g/dL (12.0-15.0); Lymphocyte # 1.99 X10^3/ul (0.83-4.51); Lymphocyte % 33.4 % (19-41); Mean Corp Hgb Conc 32.8 g/dL (32-36); Mean Corpuscular Hgb 29.5 pg (27.0-32.0); Mean Corpuscular Volume 90.1 fL (81-99); Mean Platelet Vol. 10.1 fl (6.2-12.0); Monocyte# 0.45 X10^3/uL; Monocyte% 7.6 % (0-10); NRBC Flagged by Analyzer 0 % (0-5); Neutrophil # 3.28 X10^3/uL (2.7-7.7); Platelet Count 231 K/mm3 (150-450); RBC Distribution Width CV 13.8 % (11.6-14.6); RBC Distribution Width SD 44.9 fl (35.1-43.9); Red Blood Count 3.83 M/mm3 (4.2-5.4)
[2023-10-14 17:48] LABS: Urine Bilirubin Dipstick 1 mg/dL (Negative)
[2023-10-14 18:23] LABS: Vitamin D,25 Hydroxy 33.2 ng/mL
[2023-10-14 18:48] LABS: ALB/GLOB Ratio 1.2 RATIO (0.9-2.4); AST(SGOT) 13 U/L (15-37); Alanine Aminotransfer ALT/SGPT 19 U/L (13-56); Albumin, Serum 3.7 g/dL (3.2-5.0); Alkaline Phosphatase 119 U/L (45-117); Anion Gap 6 (5-15); BUN 24 mg/dL (7-18); BUN/Creat Ratio 22.6 RATIO (10-20); Chloride 110 mmol/L (98-107); Cholesterol 176 mg/dL (200); Creatinine, Serum 1.06 mg/dL (0.55-1.02); EST Glomerular Filtration Rate 53 mL/min (>60); Est Glom Filt Rate - Afr Amer 64 mL/min (>60); Globulin 3.2 g/dL (2.2-4.2); Glucose 112 mg/dL (74-106); High Density Lipoprotein 69 mg/dL; Potassium 3.8 mmol/L (3.5-5.1); Protein, Total 6.9 g/dL (6.4-8.2); Sodium Level 140 mmol/L (136-145); Thyroid Stim Hormone (TSH) 2.01 uIU/mL (0.358-3.74); Triglycerides 218 mg/dL; Very Low Density Lipoprotein 44 mg/dL (5-40)
== END | disposition home or self-care (01) ==
LOC: MTLAB 16:38
PROVIDERS: PCP Family Medicine; Referring Provider Family Medicine; Visit Provider Family Medicine
DX: I10 Essential (primary) hypertension (principal); E55.9 Vitamin D deficiency, unspecified
CPT/HCPCS: 80053; 80061; 81002; 82306; 84443; 85025

== ENCOUNTER → 2023-10-27 | Outpatient (CLI) | payer MEDICARE, SELFPAY ==
--- NOTE | 2023-10-27 13:13 | CDU_ITS ---
Reason For Study: stenosis Rt. Velocities/BP Lt. Velocities/BP Prox CCA 64.5/13.5 cm/sec. Prox CCA 75.9/15.4 cm/sec. Mid CCA 59.8/13.5 cm/sec. Mid CCA 66.4/17.3 cm/sec. Dist CCA 52.2/10.7 cm/sec. Dist CCA 53.2/14.5 cm/sec. Prox ICA 51.3/15.4 cm/sec. Prox ICA 53.2/13.5 cm/sec. Mid ICA 70.2/21.1 cm/sec. Mid ICA 55.1/16.3 cm/sec. Dist ICA 52.0/17.3 cm/sec. Dist ICA 77.8/27.7 cm/sec. Rt. ICA/CCA = 1.2. Lt. ICA/CCA = 1.2. Prox ECA 83.4/6.0 cm/sec. Prox ECA 48.5/4.1 cm/sec. Rt. Vert. 59.8/18.2 cm/sec. Lt. Vert. 48.5/13.5 cm/sec. Right Extracranial There is homogeneous, smooth atherosclerotic plaque noted in the right common carotid artery. There is homogeneous, smooth atherosclerotic plaque noted in the right internal carotid artery. There is heterogeneous, irregular atherosclerotic plaque noted in the right external carotid artery. Antegrade flow is noted in the right vertebral artery. Left Extracranial There is homogeneous, smooth atherosclerotic plaque noted in the left common carotid artery. There is heterogeneous, irregular atherosclerotic plaque noted in the left internal carotid artery. There is heterogeneous, irregular atherosclerotic plaque noted in the left external carotid artery. Antegrade flow is noted in the left vertebral artery. Procedure Carotid Duplex [id number]. This is a Carotid Duplex examination using B-mode, color flow and specral Doppler. The exam was diagnostic. Exam performed in department. VL/Carotid Duplex Ultrasound Interpretation Summary Mild (<50%) stenosis right extracranial internal carotid. Mild (<50%) stenosis left extracranial internal carotid. Flow within the vertebral arteries is antegrade bilaterally. Ordering Physician: Shant Sommers Performed By: Mac Sánchez RVT
== END | disposition home or self-care (01) ==
LOC: CVS 13:11
PROVIDERS: PCP Family Medicine; Referring Provider Family Medicine; Visit Provider Family Medicine
DX: I65.23 Occlusion and stenosis of bilateral carotid arteries (principal)
CPT/HCPCS: 93880

== ENCOUNTER → 2023-11-30 | Outpatient (CLI) | payer MEDICARE, SELFPAY ==
--- NOTE | 2023-11-30 17:49 | CT_ITS ---
CT LEFT LOWER EXTREMITY WITH 3-D IMAGING CLINICAL INDICATION: FABIÁN TECHNIQUE: Axial CT images of the left lower extremity (including left hip, left knee, and left ankle) was performed without IV contrast material. Coronal and sagittal reformats were provided. 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 There is mild pubic symphysis arthrosis. There is mild to moderate tricompartment degenerative arthrosis of the left knee joint, with joint space narrowing and marginal osteophyte formation. There is a plantar calcaneal spur. There is degenerative arthrosis at the second and third tarsometatarsal joints. Osseous structures are intact without evidence of fracture or dislocation. No lytic or blastic osseous masses. Soft Tissues: There is a moderate left knee joint effusion. There is chondrocalcinosis of the medial and lateral menisci of the left knee. There is chronic sigmoid diverticulosis without acute diverticulitis. The deep soft tissue structures are otherwise unremarkable. The superficial soft tissues are unremarkable without evidence of edema, hematoma, or foreign body. 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 Moderate left knee joint effusion. Electronically Signed: Kike Colvin MD at 9:04 EST ,
--- OUTSIDE RECORDS SUMMARY | 2023-11-30 18:03 | XMS RPT_ITS | CCD ---
Author Name Unknown Address [address] [place] [address] Organization [facility] Care Team Providers Care Engineer Name Role Phone PADMAJA ABDI, ALEX Primary Care Physician ZAN ABDI, DR AREN Clemons Attending Sathya Rubio MD, ALEX [facility] Fredis ZULUAGA MD, DR AREN Clemons Attending Sathya Rubio MD, ALEX Primary [facility] Fredis ZULUAGA MD, DR AREN Clemons Attending Sathya Rubio MD, ALEX Primary [facility] Fredis GIANG MD, ALEX [facility] Fredis ZULUAGA MD, DR AREN Clemons Admitting Sathya Pedersen MD, DR AREN Clemons Referring Sathya Campbell, RICHARD [employer] Chula PAYAN, RICHARD Fierro Attending Chula ZULUAGA MD, DR AREN Clemons Attending Sathya Rubio MD, ALEX [facility] Fredis ZULUAGA MD, DR AREN Clemons Attending Sathya Rubio MD, [facility] Unavailable Medications Current Medications Medication Drug Class(es) Dates Sig (Normalized) Sig (Original) acetaminophen 1000 mg oral tablet (3 sources) Start: 09-21-2023 take 1 tablet by mouth once daily Tylenol Dose : 1,000 mg = 2 tab(s), Oral, q6h, not to exceed 3000 mg/day, 0 Refill(s) Start Date: 09/21/23 Status: Ordered Problems Problem Classification Problem Date Documented Da te Episodic/Chronic Essential hypertension (1 source) Essential hypertension; Translations: [Essential (primary) hypertension] Onset: 09-20-2023 Chronic Osteoarthritis (1 source) Osteoarthritis; Translations: [Unspecified osteoarthritis, unspecified site] Onset: 09-20-2023 Chronic Other connective tissue disease (2 sources) Artificial knee joint present; Translations: [Presence of unspecified artificial knee joint] Onset: 09-20-2023 Chronic Other nervous system disorders (1 source) Impaired cognition; Translations: [Other symptoms and signs involving cognitive functions and awareness] Onset: 09-21-2023 Episodic Results Test Name Value Interpretation Reference Range Facil ity Vital Signs Date Time Vital Sign Value Performing Clinician Faci lity 09-21-2023 14:24-0500 Body temperature 97.88 [degF] DR AREN ZULUAGA MD [facility] 09-21-2023 14:24-0500 Diastolic Blood Pressure Non-Invasive 56 mm[Hg] DR AREN ZULUAGA MD [facility] 09-21-2023 14:24-0500 Heart rate 66 /min DR AREN ZULUAGA MD [facility] 09-21-2023 14:24-0500 Respiratory rate 20 /min DR AREN ZULUAGA MD [facility] 09-21-2023 14:24-0500 Systolic Blood Pressure Non-Invasive 157 mm[Hg] DR AREN ZULUAGA MD [facility] 09-21-2023 11:05-0500 Diastolic Blood Pressure Non-Invasive 67 mm[Hg] DR AREN ZULUAGA MD [facility] 09-21-2023 11:05-0500 Systolic Blood Pressure Non-Invasive 158 mm[Hg] DR AREN ZULUAGA MD [facility] 09-21-2023 10:31-0500 Body temperature 97.88 [degF] DR AREN ZULUAGA MD [facility] 09-21-2023 10:31-0500 Diastolic Blood Pressure Non-Invasive 100 mm[Hg] DR AREN ZULUAGA MD [facility] 09-21-2023 10:31-0500 Heart rate 75 /min DR AREN ZULUAGA MD [facility] 09-21-2023 10:31-0500 Respiratory rate 20 /min DR AREN ZULUAGA MD [facility] 09-21-2023 10:31-0500 Systolic Blood Pressure Non-Invasive 159 mm[Hg] DR AREN ZULUAGA MD [facility] 09-21-2023 07:14-0500 Body temperature 97.88 [degF] DR AREN ZULUAGA MD [facility] 09-21-2023 07:14-0500 Heart rate 68 /min DR AREN ZULUAGA MD [facility] 09-21-2023 07:14-0500 Respiratory rate 20 /min DR AREN ZULUAGA MD [facility] 09-20-2023 23:08-0500 Heart rate 67 /min DR AREN ZULUAGA MD [facility] 09-20-2023 14:22-0500 Body temperature 96.62 [degF] DR AREN ZULUAGA MD [facility] 09-20-2023 14:22-0500 Heart rate 58 /min DR AREN ZULUAGA MD [facility] 09-20-2023 13:47-0500 Body height 165.[address] AREN ZULUAGA MD [facility] 09-20-2023 13:47-0500 Body weight 87.[address] AREN ZULUAGA MD [facility] 09-20-2023 13:47-0500 Body weight 32.25 kg/m2 DR AREN ZULUAGA MD [facility] 09-20-2023 13:38-0500 Body temperature 96.62 [degF] DR AREN ZULUAGA MD [facility] 09-20-2023 13:38-0500 Heart rate 54 /min DR AREN ZULUAGA MD [facility] 09-20-2023 12:25-0500 Body temperature 97.16 [degF] DR AREN ZULUAGA MD [facility] 09-20-2023 12:20-0500 Respiratory Rate - Anes 21 br/min DR AREN ZULUAGA MD [facility] 09-20-2023 12:15-0500 Respiratory Rate - Anes 25 br/min DR AREN ZULUAGA MD [facility] 09-20-2023 12:10-0500 Respiratory Rate - Anes 26 br/min DR AREN ZULUAGA MD [facility] 09-20-2023 10:30-0500 Heart rate 59 /min DR AREN ZULUAGA MD [facility] 09-20-2023 08:52-0500 Body height 165.[address] AREN ZULUAGA MD [facility] 09-20-2023 08:52-0500 Body temperature 97.7 [degF] DR AREN ZULUAGA MD [facility] 09-20-2023 08:52-0500 Body weight 87.[address] AREN ZULUAGA MD [facility] 09-20-2023 08:52-0500 Heart rate 65 /min DR AREN ZULUAGA MD [facility] 08-26-2023 11:55-0400 Blood Pressure Cuff Size DR AREN ZULUAGA MD [facility] 08-26-2023 11:55-[address] AREN ZULUAGA MD [facility] 08-26-2023 11:55-[address] AREN Sol [facility] 08-26-2023 11:55-0400 Body height 165.[address] AREN ZULUAGA MD [facility] 08-26-2023 11:55-0400 Body weight 87.[address] AREN ZULUAGA MD [facility] 08-26-2023 11:55-0400 Body weight 32.25 kg/m2 DR AREN ZULUAGA MD [facility] 08-26-2023 11:55-0400 Diastolic Blood Pressure Non-Invasive [address] AREN ZULUAGA MD [facility] 08-26-2023 11:55-0400 Heart rate 64 /min DR AREN ZULUAGA MD [facility] 08-26-2023 11:55-0400 Systolic Blood Pressure Non-Invasive [address] AREN ZULUAGA MD [facility] Encounters Encounter Date Encounter Type Care Provider Facility Start: 11-03-[address] AREN ZULUAGA MD [facility] Start: 11-02-[address] AREN ZULUAGA MD [facility] Start: 09-20-2023 End: 09-21-2023 ambulatory ALEX GIANG MD Facility:[facility] Start: 09-20-2023 End: 09-21-[address] AREN ZULUAGA MD [facility] Start: 08-26-2023 End: 08-27-[address] AREN ZULUAGA MD Facility:[facility] Start: 08-26-2023 End: 08-26-[address] AREN ZULUAGA MD [facility] Start: 08-26-2023 End: 08-26-[address] AREN ZULUAGA MD [facility] Procedures Date Procedure Procedure Detail Performing Clinician Arthroscopy of knee DR TONIE ZULUAGA MD Immunizations Immunization Date Immunization Notes Care Provider [facility] 08-12-2023 influenza virus vaccine, unspecified formulation DR AREN ZULUAGA MD [facility] 08-12-2023 pneumococcal 20-gabby nt conjugate vaccine DR AREN ZULUAGA MD [facility] 05-24-2023 tetanus toxoid, redu annabelle diphtheria toxoid, and acellular pertussis vaccine, adsorbed DR AREN ZULUAGA MD [facility] 09-03-2022 influenza virus vaccine, unspecified formulation DR AREN ZULUAGA MD [facility] 08-31-2022 SARS-CoV-2 (CV19)mRNA-[id number] AREN ZULUAGA MD [facility] Payers Date Payer Category Payer Private Health Insurance [id number] 1940 Unknown [id number] 1940 Unknown [id number] [id number] 1940 Unknown [id number] [id number] 1940 Unknown [id number] [id number] 1940 Unknown [id number] 2.16.8 [id number] 1940 Unknown [id number] [id number] [id number] Social History Date Type Detail Facility Start: 08-26-2023 Tobacco smoking status Never s moked tobacco (finding) [facility] Sex Assigned At Female [facility] Functional Status Date Assessment Result Facility 09-21-2023 Functional Status Mod I [facility] 09-21-2023 Functional Status 2 [facility] 09-21-2023 Functional Status Identified as high risk, Fall ID band on, Room located near nursing station, Bed alert on, Door open, Non-Slip footwear [facility] 09-21-2023 Functional Status [facility] 09-21-2023 Functional Status bilateral knee high applied/on [facility] 09-20-2023 Functional Status [facility] 09-20-2023 Functional Status [facility] 09-20-2023 Functional Status [facility] 09-20-2023 Functional Status Supervised [facility] 09-20-2023 Functional Status Single level home [facility] 09-20-2023 Functional Status [facility] 09-20-2023 Functional Status Maintained, More than 8 hours [facility] 08-26-2023 Functional Status Sensory Deficits None A [facility] Mental Status Date Assessment Result Facility 09-21-2023 Mental Status Orientation Asse ssment Oriented x 4 [facility] 09-21-2023 Mental Status Oriented x 4 [facility] 09-20-2023 Mental Status [facility] 09-20-2023 Mental Status [facility] Clinical Notes 04-30-2021 to 09-21-2023 Note Date & Type Note Facility 09-21-2023 Hospital Discharge instructions Patient Education 09/21/2023 13:06:09 Total Knee Replacement, Care After, Kqpt-ui-Acbs Total Knee Replacement, Care After This sheet gives you information about how to care for yourself after your procedure. Your doctor may also give you more specific instructions. If you have problems or questions, contact your doctor. What can I expect after the procedure? After the procedure, it is common to have: Pain. Swelling. A small amount of blood coming from your cut from surgery (incision). Clear fluid coming from your cut from surgery. Limited movement of your knee. Follow these instructions at home: Medicines Take izfg-bsl-wzktwey and prescription medicines only as told by your doctor. If you were prescribed a blood thinner (anticoagulant), take it as told by your doctor. Ask your doctor if the medicine prescribed to you: ?Requires you to avoid driving or using heavy machinery. ?Can cause trouble pooping (constipation). You may need to take steps to prevent or treat trouble pooping: ?Drink enough fluid to keep your pee (urine) pale yellow. ?Take tbjt-tpa-ozlkonf or prescription medicines. ?Eat foods that are high in fiber. These include beans, whole grains, and fresh fruits and vegetables. ?Limit foods that are high in fat and sugar. These include fried or sweet foods. Bathing Do not take baths, swim, or use a hot tub until your doctor approves. Ask your doctor if you may take showers. You may only be allowed to take sponge baths. Keep your bandage (dressing) dry until your doctor says it can be taken off. Incision care and drain care Follow instructions from your doctor about how to take care of your cut from surgery. Make sure you: ?Wash your hands with soap and water before and after you change your bandage. If you cannot use soap and water, use hand pet walker. ?Change your bandage as told by your doctor. ?Leave stitches (sutures), skin glue, or skin tape (adhesive) strips in place. They may need to stay in place for 2 weeks or longer. If tape strips get loose and curl up, you may trim the loose edges. Do not remove tape strips completely unless your doctor says it is okay. Check your cut from surgery and your drain site every day for signs of infection. Check for: ?More redness, swelling, or pain. ?More fluid or blood. ?Warmth. ?Pus or a bad smell. If you have a drain, follow instructions from your doctor about caring for it. Managing pain, stiffness, and swelling If told, put ice on your knee. ?Put ice in a plastic bag or use the icing device (cold flow pad or cryocuff) that you were given. Follow your doctor's directions about how to use the icing device. ?Place a towel between your skin and the bag or between your skin and the icing device. ?Leave the ice on for 20 minutes, 2 3 times per day. If told, put heat on your knee before you exercise. Use the heat source that your doctor recommends, such as a moist heat pack or a heating pad. ?Place a towel between your skin and the heat source. ?Leave the heat on for 20 30 minutes. ?Remove the heat if your skin turns bright red. This is very important if you are unable to feel pain, heat, or cold. You may have a greater risk of getting burned. Move your toes often. Raise (elevate) your knee above the level of your heart while you are sitting or lying down. ?Use several pillows to keep your leg straight. ?Do not put a pillow just under the knee. If the knee is bent for a long time, this may make the knee stiff. Wear elastic knee support as told by your doctor. Activity Rest as told by your doctor. Do not sit for a long time without moving. Get up to take short walks every 1 2 hours. This is important. Ask for help if you feel weak or unsteady. Ask your doctor what activities are safe for you. Avoid activities that put stress on your knees. These include running, jumping rope, and jumping jacks. Do not play contact sports until your doctor says it is okay. Do exercises as told by your physical therapist. If you have been sent home with a knee joint motion machine (continuous passive motion machine), use it as told by your doctor. Safety Do not use your leg to support your body weight until your doctor says that you can. Use crutches or a walker as told by your doctor. Do not drive until your doctor says it is okay. Ask your doctor when it is safe to drive. General instructions Do not use any products that contain nicotine or tobacco, such as cigarettes, e-cigarettes, and chewing tobacco. These can delay healing. If you need help quitting, ask your doctor. Wear special socks (compression stockings) as told by your doctor. Tell your doctor if you plan to have dental work. Also: ?Tell your dentist about your joint replacement. ?Ask your doctor if there are instructions you need to follow before dental care and routine cleanings. Keep all follow-up visits as told by your doctor. This is important. Contact a doctor if: You have more redness, swelling, or pain around your cut from surgery or your drain. You have more fluid or blood coming from your cut from surgery or your drain. You have pus or a bad smell coming from your cut from surgery or your drain. Your cut from surgery or your drain area feels warm to the touch. You have a fever. Your cut breaks open. You have knee pain that does not go away. The movement of your knee is getting worse. Your new joint feels loose. Get help right away if you have: Pain in your calf or thigh. Swelling in your calf or thigh. Shortness of breath. Trouble breathing. Chest pain. Summary After the procedure, it is common to have pain and swelling, blood or fluid coming from your cut from surgery, and trouble moving your knee. Follow instructions from your doctor about how to take care of your cut from surgery. Use crutches or a walker as told by your doctor. If you were prescribed a blood thinner, take it as told by your doctor. Keep all follow-up visits as told by your doctor. This is important. This information is not intended to replace advice given to you by your health care provider. Make sure you discuss any questions you have with your health care provider. Document Released: 01/15/2013 Document Revised: 03/03/2020 Document Reviewed: 06/07/2019 [employer] Patient Education 2020 [employer]. 09/21/2023 06:56:19 5 - [facility] Post-op Instruction 06/2017 (21648) [facility] Post-operative Instructions PLEASE FOLLOW [facility] POST-OP INSTRUCTIONS GIVEN WATCH FOR SIGNS OF INFECTION: call the office ([phone]) if experencing any of the following: (Usually appears 36-48 hours after surgery) Increased temperature (101 degrees Fahrenheit or higher) Redness or swelling Increased uncontrolled pain Foul odor or drainage Calf discomfort Significant swelling Or if having any chest pain, shortness of breath, or difficulty breathing or swallowing call the office or go the nearest Emergency Room. If you have any questions, please call your doctor at the number listed on your follow up instructions. Form: 338A (20906) R: 03/13 Follow Up Care 07/26/2023 08:02:18 With:[facility] Address: [address] [place] [id number] [phone] When:09/23/2023 13:00:00 Comments:This is your first physical therapy appointment. Follow-up as scheduled. With:NOMEI JOEL PA-C, Orthopedic Address: [facility] [address] [place] [phone] When:10/03/2023 13:30:00 Comments:This is your post-op appointment. Follow-up as scheduled. [facility] 09-21-2023 Note Discharge Instructions Thank you for allowing [facility] to assist you with your healthcare needs. The following is important discharge information regarding your hospital visit. Your Care Team Aren Zuluaga MD Your Diagnosis Cognitive impairment HTN (hypertension) Osteoarthritis S/P knee replacement Status post total right knee replacement What to do next Follow Up Appointments Follow Up with NOEMI JOEL PA-C, Orthopedic When 10/03/2023 01:30 PM EST Why: This is your post-op appointment. Follow-up as scheduled. Where: [facility] [address] [place] [address] [place] [address]- Follow Up with [facility] When 09/23/2023 01:00 PM EST Why: This is your first physical therapy appointment. Follow-up as scheduled. Where: [address] [place] [address] [place] [address] [phone] The Following Treatments Have Been Ordered for You Discharge Labs No qualifying data available. Discharge Radiology No qualifying data available. Other Therapies No qualifying data available. Post Acute Orders No qualifying data available. Allergies No Known Medication Allergies Medications Please ask your primary doctor or pharmacist before taking any other medication not listed, including over the counter drugs, herbal medications, vitamins and or supplements as they may interact with your home medications. What How Much When Why Instructions Last Dose New aspirin (Aspirin Low Dose 81 mg oral tablet) 1 tab(s) by mouth Two (2) times a day Duration: 30 Days Take 81 mg aspirin twice daily with food for 4 weeks postoperatively for DVT prophylaxis. Pickup at [facility] #[id number] New docusate-senna (Senokot S 50 mg-8.6 mg oral tablet) 2 tab(s) by mouth Two (2) times a day Duration: 3 Days Take until first bowel movement, then as needed Pickup at [facility] #[id number] New famotidine (Pepcid 20 mg oral tablet) 1 tab(s) by mouth Once a day Pickup at [facility] #56822 New oxyCODONE (oxyCODONE 5 mg oral tablet ( IMMEDIATE release )) See instructions Status post total right knee replacement 1-2 tab(s) Oral q4h Pickup at [facility] #41963 Changed acetaminophen (Tylenol) 1,000 Milligram by mouth Every 6 hours not to exceed 3000 mg/ day Unchanged cholecalciferol (Vitamin D3 50 mcg (2000 intl units) oral tablet) 1 tab(s) by mouth Every day Unchanged diclofenac (diclofenac sodium 75 mg oral delayed release tablet) 1 tab(s) by mouth Two (2) times a day Unchanged lisinopril (lisinopril 10 mg oral tablet) 1 tab(s) by mouth Every day Unchanged lovastatin (lovastatin 40 mg oral tablet) 1 cap by mouth Every day Unchanged vitamin E (vitamin E 180 mg oral capsule) 1 cap by mouth Once a day Pharmacy Information [facility] #[id number]: [address] [place], [place] [id number] [phone] Please take this list to your next doctor s visit. Bring all medications you take, including over the counter medications, herbals and other supplements with you to your doctor s visit. Patients and families are reminded to discard old lists and to update any records with all medication providers or retail pharmacies. Medication Leaflets docusate and senna (DOK emerald sate and SEN a) Colace 2-in-1, Senexon-S, Senna Plus, Senna S, Senna-Time S, Senokot S, SenoSol-SS, Stool Softener + Stimulant Laxative, Stool Softener with Laxative What is the most important information I should know about docusate and senna? Use exactly as directed on the label, or as prescribed by your doctor. What is docusate and senna? Docusate is a stool softener. Senna is a laxative. Docusate and senna is a combination medicine used to treat occasional constipation. Docusate and senna may also be used for purposes not listed in this medication guide. What should I discuss with my healthcare provider before using docusate and senna? You should not use this medicine if you are allergic to docusate or senna, or if you are also taking mineral oil. Ask a doctor or pharmacist if this medicine is safe to use if you have ever had: nausea or vomiting; stomach pain; a sudden change in bowel habits that lasts for 2 weeks or longer; or an intestinal disorder such as Crohn's disease or ulcerative colitis. Ask a doctor before using this medicine if you are or . Do not give this medicine to a child younger than 2 years old without medical advice. How should I use docusate and senna? Use exactly as directed on the label, or as prescribed by your doctor. Take docusate and senna with a full glass of water. It may be best to take this medicine at night or at bedtime. Docusate and senna should cause you to have a bowel movement within 6 to 12 hours. Do not take docusate and senna for longer than 7 days in a row, unless your doctor tells you to. Call your doctor if your constipation does not improve or if it gets worse after taking docusate and senna. Store at room temperature away from moisture and heat. What happens if I miss a dose? Since docusate and senna is used when needed, you may not be on a dosing schedule. Skip any missed dose if it's almost time for your next dose. Do not use two doses at one time. What happens if I overdose? Seek emergency medical attention or call the Poison Help line at . Overdose symptoms may include nausea, vomiting, stomach pain, or diarrhea. What should I avoid while using docusate and senna? Ask a doctor or pharmacist before using any other laxative or other stool softener that may contain ingredients similar to docusate or senna. What are the possible side effects of docusate and senna? Get emergency medical help if you have signs of an allergic reaction: hives; difficulty breathing; swelling of your face, lips, tongue, or throat. Stop using docusate and senna and call your doctor at once if you have: rectal bleeding; severe stomach pain, nausea, vomiting; or no bowel movement. Common side effects may include: gas, bloating; diarrhea; or mild nausea. This is not a complete list of side effects and others may occur. Call your doctor for medical advice about side effects. You may report side effects to FDA at 1-776-BHP-4267. What other drugs will affect docusate and senna? Other drugs may affect docusate and senna, including prescription and ztkr-jjj-wwjpddp medicines, vitamins, and herbal products. Tell your doctor about all your current medicines and any medicine you start or stop using. Where can I get more information? Your pharmacist can provide more information about docusate and senna. Remember, keep this and all other medicines out of the reach of children, never share your medicines with others, and use this medication only for the indication prescribed. Every effort has been made to ensure that the information provided by [facility]. ('[employer]') is accurate, up-to-date, and complete, but no guarantee is made to that effect. Drug information contained herein may be time sensitive. [employer] information has been compiled for use by healthcare practitioners and consumers in the [place] and therefore [employer] does not warrant that uses outside of the [place] are appropriate, unless specifically indicated otherwise. [employer] drug information does not endorse drugs, diagnose patients or recommend therapy. [employer] drug information is an informational resource designed to assist licensed healthcare practitioners in caring for their patients and/or to serve consumers viewing this service as a supplement to, and not a substitute for, the expertise, skill, knowledge and judgment of healthcare practitioners. The absence of a warning for a given drug or drug combination in no way should be construed to indicate that the drug or drug combination is safe, effective or appropriate for any given patient. [employer] does not assume any responsibility for any aspect of healthcare administered with the aid of information [employer] provides. The information contained herein is not intended to cover all possible uses, directions, precautions, warnings, drug interactions, allergic reactions, or adverse effects. If you have questions about the drugs you are taking, check with your doctor, nurse or pharmacist. Copyright 1470-6056 [facility] [employer]. Version: 5.01. Revision Date: 06/13/2023. oxycodone (ox i KOE done) Oxaydo, OxyCONTIN, Roxicodone, RoxyBond, Xtampza ER What is the most important information I should know about oxycodone? MISUSE OF OPIOID MEDICINE CAN CAUSE ADDICTION, OVERDOSE, OR . Keep the medication in a place where others cannot get to it. Taking opioid medicine during may cause life-threatening withdrawal symptoms in the . Fatal side effects can occur if you use opioid medicine with alcohol, or with other drugs that cause drowsiness or slow your breathing. What is oxycodone? Oxycodone is an opioid pain medication used to treat moderate to severe pain. The extended-release form of oxycodone is for zmwbnr-ehb-jajsa treatment of pain and should not be used on an as-needed basis for pain. Oxycodone may also be used for purposes not listed in this medication guide. What should I discuss with my healthcare provider before using oxycodone? You should not use oxycodone if you are allergic to it, or if you have: severe asthma or breathing problems; or a blockage in your stomach or intestines. You should not use oxycodone unless you are already using a similar opioid medicine and are tolerant to it. Most brands of oxycodone are not approved for use in people under 18. OxyContin should not be given to a child younger than 11 years old. Tell your doctor if you have ever had: breathing problems, sleep apnea; a head injury, or seizures; drug or alcohol addiction, or mental illness; liver or kidney disease; urination problems; or problems with your gallbladder, pancreas, or thyroid. If you use opioid medicine while you are , your baby could become dependent on the drug. This can cause life-threatening withdrawal symptoms in the baby after it is born. Babies born dependent on opioids may need medical treatment for several weeks. Ask a doctor before using opioid medicine if you are . Tell your doctor if you notice severe drowsiness or slow breathing in the nursing baby. How should I use oxycodone? Follow the directions on your prescription label and read all medication guides. Never use oxycodone in larger amounts, or for longer than prescribed. Tell your doctor if you feel an increased urge to take more of this medicine. Never share opioid medicine with another person, especially someone with a history of drug abuse or addiction. MISUSE CAN CAUSE ADDICTION, OVERDOSE, OR . Keep the medication in a place where others cannot get to it. Selling or giving away opioid medicine is against the law. Stop taking all other zgjsvg-kut-gfzxy opioid pain medicines when you start taking extended-release oxycodone. Take oxycodone with food. Swallow the capsule or tablet whole to avoid exposure to a potentially fatal overdose. Do not crush, chew, break, open, or dissolve. If you cannot swallow a capsule whole, open it and sprinkle the medicine into a spoonful of pudding or applesauce. Swallow the mixture right away without chewing. Do not save it for later use. Never crush or break an oxycodone pill to inhale the powder or mix it into a liquid to inject the drug into your vein. This can cause in . Measure liquid medicine carefully. Use the dosing syringe provided, or use a medicine dose-measuring device (not a kitchen spoon). You should not stop using oxycodone suddenly. Follow your doctor's instructions about tapering your dose. Store at room temperature, away from heat, moisture, and light. Keep track of your medicine. Oxycodone is a drug of abuse and you should be aware if anyone is using your medicine improperly or without a prescription. Do not keep leftover opioid medication. Just one dose can cause in someone using this medicine accidentally or improperly. Ask your pharmacist where to locate a drug take-back disposal program. If there is no take-back program, flush the unused medicine down the toilet. What happens if I miss a dose? Since oxycodone is used for pain, you are not likely to miss a dose. Skip any missed dose if it is almost time for your next dose. Do not use two doses at one time. What happens if I overdose? Seek emergency medical attention or call the Poison Help line at . An opioid overdose can be fatal, especially in a child or other person using the medicine without a prescription. Overdose symptoms may include severe drowsiness, pinpoint pupils, slow breathing, or no breathing. Your doctor may recommend you get naloxone (a medicine to reverse an opioid overdose) and keep it with you at all times. A person caring for you can give the naloxone if you stop breathing or don't wake up. Your caregiver must still get emergency medical help and may need to perform CPR (cardiopulmonary resuscitation) on you while waiting for help to arrive. Anyone can buy naloxone from a pharmacy or local health department. Make sure any person caring for you knows where you keep naloxone and how to use it. What should I avoid while using oxycodone? Do not drink alcohol. Dangerous side effects or could occur. Avoid driving or operating machinery until you know how oxycodone will affect you. Dizziness or severe drowsiness can cause falls or other accidents. Avoid medication errors. Always check the brand and strength of oxycodone you get from the pharmacy. What are the possible side effects of oxycodone? Get emergency medical help if you have signs of an allergic reaction: hives; difficult breathing; swelling of your face, lips, tongue, or throat. Opioid medicine can slow or stop your breathing, and may occur. A person caring for you should give naloxone and/or seek emergency medical attention if you have slow breathing with long pauses, blue colored lips, or if you are hard to wake up. Call your doctor at once if you have: noisy breathing, sighing, shallow breathing, breathing that stops during sleep; a slow heart rate or weak pulse; a light-headed feeling, like you might pass out; confusion, unusual thoughts or behavior; seizure (convulsions); low cortisol levels-- nausea, vomiting, loss of appetite, dizziness, worsening tiredness or weakness; or high levels of serotonin in the body--agitation, hallucinations, fever, sweating, shivering, fast heart rate, muscle stiffness, twitching, loss of coordination, nausea, vomiting, diarrhea. Serious breathing problems may be more likely in older adults and in those who are debilitated or have wasting syndrome or chronic breathing disorders. Common side effects may include: drowsiness, headache, dizziness, tiredness; or constipation, stomach pain, nausea, vomiting. This is not a complete list of side effects and others may occur. Call your doctor for medical advice about side effects. You may report side effects to FDA at 8-053-VBQ-2396. What other drugs will affect oxycodone? You may have breathing problems or withdrawal symptoms if you start or stop taking certain other medicines. Tell your doctor if you also use an antibiotic, antifungal medication, heart or blood pressure medication, seizure medication, or medicine to treat HIV or hepatitis C. Opioid medication can interact with many other drugs and cause dangerous side effects or . Be sure your doctor knows if you also use: cold or allergy medicines, bronchodilator asthma/COPD medication, or a diuretic ('water pill'); medicines for motion sickness, irritable bowel syndrome, or overactive bladder; other opioids--opioid pain medicine or prescription cough medicine; a sedative like Valium--diazepam, alprazolam, lorazepam, Xanax, Klonopin, Versed, and others; drugs that make you sleepy or slow your breathing--a sleeping pill, muscle relaxer, medicine to treat mood disorders or mental illness; or drugs that affect serotonin levels in your body--a stimulant, or medicine for depression, Parkinson's disease, migraine headaches, serious infections, or nausea and vomiting. This list is not complete and many other drugs may affect oxycodone. This includes prescription and rejl-wth-fxmnyrr medicines, vitamins, and herbal products. Not all possible drug interactions are listed here. Where can I get more information? Your pharmacist can provide more information about oxycodone. Remember, keep this and all other medicines out of the reach of children, never share your medicines with others, and use this medication only for the indication prescribed. Every effort has been made to ensure that the information provided by [employer] [employer] is accurate, up-to-date, and complete, but no guarantee is made to that effect. Drug information contained herein may be time sensitive. [employer] information has been compiled for use by healthcare practitioners and consumers in the [place] and therefore [employer] does not warrant that uses outside of the [place] are appropriate, unless specifically indicated otherwise. [employer] drug information does not endorse drugs, diagnose patients or recommend therapy. [employer] drug information is an informational resource designed to assist licensed healthcare practitioners in caring for their patients and/or to serve consumers viewing this service as a supplement to, and not a substitute for, the expertise, skill, knowledge and judgment of healthcare practitioners. The absence of a warning for a given drug or drug combination in no way should be construed to indicate that the drug or drug combination is safe, effective or appropriate for any given patient. [employer] does not assume any responsibility for any aspect of healthcare administered with the aid of information [employer] provides. The information contained herein is not intended to cover all possible uses, directions, precautions, warnings, drug interactions, allergic reactions, or adverse effects. If you have questions about the drugs you are taking, check with your doctor, nurse or pharmacist. Copyright [id number] [facility]. Version: 16.. Revision Date: 06/10/2023. acetaminophen (oral) (a SEET a MIN oh fen) Anacin AF, Children's Tylenol, Mapap, M-Pap, Pharbetol, Silapap Childrens, Tempra Quicklets, Tycolene, Tylenol What is the most important information I should know about acetaminophen? An overdose of acetaminophen can damage your liver or cause . Call your doctor at once if you have upper stomach pain, loss of appetite, dark urine, or jaundice (yellowing of your skin or eyes). Stop taking this medicine and get medical help if you have skin redness or a blistering rash. What is acetaminophen? Acetaminophen is used to reduce fever and relieve minor pain caused by conditions such as colds or flu, headache, muscle aches, arthritis, and menstrual cramps. Acetaminophen may also be used for purposes not listed in this medication guide. What should I discuss with my healthcare provider before taking acetaminophen? You should not take acetaminophen if you are allergic to it, or if you take other medications that contain acetaminophen. Ask a doctor or pharmacist if this medicine is safe to use if you've ever had cirrhosis of the liver, or if you drink alcohol daily. Ask a doctor before using this medicine if you are or . How should I take acetaminophen? Use exactly as directed on the label, or as prescribed by your doctor. An acetaminophen overdose can damage your liver or cause . Adults and teenagers at least 12 years old: Do not take more than 1000 milligrams (mg) at one time or more than 4000 mg in 24 hours. Children younger than 12 years old: Do not take more than 5 doses of children's formula acetaminophen in 24 hours. Do not give extra-strength acetaminophen to a child younger than 12 years old without medical advice. A child's dose is based on age and weight. Carefully follow the dosing instructions provided with this medicine. Ask a doctor before giving this medicine to a child younger than 2 years. Acetaminophen made for infants comes with its own medicine dropper or oral syringe. Measuring with the wrong device may cause an overdose. Use only the provided dosing device provided to measure an infant's dose. Acetaminophen comes in many different forms such as capsules, liquid, chewable or disintegrating tablets, and dissolving powders or granules. Read and carefully follow any Instructions for Use provided with your medicine. Ask your doctor or pharmacist if you need help. Stop taking acetaminophen and call your doctor if: you still have a sore throat after 2 days of use; you still have a fever after 3 days of use; you still have pain after 7 days of use (or 5 days if treating a child); you have a skin rash, ongoing headache, nausea, vomiting, redness or swelling; or your symptoms get worse, or if you have any new symptoms. Taking acetaminophen may cause false results with certain blood glucose monitors. If you have diabetes, ask your doctor about the best way to monitor your blood sugar levels while using acetaminophen. Store at room temperature away from heat and moisture. What happens if I miss a dose? Acetaminophen is used when needed. If you are on a dosing schedule, skip any missed dose. Do not use two doses at one time. What happens if I overdose? Seek emergency medical attention or call the Poison Help line at . An overdose can be fatal. Overdose symptoms include vomiting, stomach pain, and yellowing of your skin or eyes. What should I avoid while taking acetaminophen? Avoid using other medicines that may contain acetaminophen. Avoid drinking alcohol. What are the possible side effects of acetaminophen? Get emergency medical help if you have signs of an allergic reaction: hives; difficulty breathing; swelling of your face, lips, tongue, or throat. In rare cases, acetaminophen may cause a severe skin reaction that can be fatal, even if you took acetaminophen in the past and had no reaction. Stop taking this medicine and call your doctor right away if you have skin redness or a rash that spreads and causes blistering and peeling. Stop taking acetaminophen and call your doctor at once if you have signs of liver problems: stomach pain (upper right side); loss of appetite; tiredness, itching; dark urine, senthil-colored stools; or jaundice (yellowing of the skin or eyes). Less serious side effects may be more likely, and you may have none at all. This is not a complete list of side effects and others may occur. Call your doctor for medical advice about side effects. You may report side effects to FDA at 1-315-VPC-2294. What other drugs will affect acetaminophen? Other drugs may affect acetaminophen, including prescription and dylt-zyd-pwanpgn medicines, vitamins, and herbal products. Tell your doctor about all other medicines you use. Where can I get more information? Your pharmacist can provide more information about acetaminophen. Remember, keep this and all other medicines out of the reach of children, never share your medicines with others, and use this medication only for the indication prescribed. Every effort has been made to ensure that the information provided by [facility] [employer]. [employer] is accurate, up-to-date, and complete, but no guarantee is made to that effect. Drug information contained herein may be time sensitive. [employer] information has been compiled for use by healthcare practitioners and consumers in the [place] and therefore [employer] does not warrant that uses outside of the [place] are appropriate, unless specifically indicated otherwise. [employer] drug information does not endorse drugs, diagnose patients or recommend therapy. [employer] drug information is an informational resource designed to assist licensed healthcare practitioners in caring for their patients and/or to serve consumers viewing this service as a supplement to, and not a substitute for, the expertise, skill, knowledge and judgment of healthcare practitioners. The absence of a warning for a given drug or drug combination in no way should be construed to indicate that the drug or drug combination is safe, effective or appropriate for any given patient. [facility] does not assume any responsibility for any aspect of healthcare administered with the aid of information [facility] provides. The information contained herein is not intended to cover all possible uses, directions, precautions, warnings, drug interactions, allergic reactions, or adverse effects. If you have questions about the drugs you are taking, check with your doctor, nurse or pharmacist. Copyright 3033-0220 [employer]. Version: .. Revision Date: 06/06/2023. aspirin (oral) ( pir in) Aspi-Cor, Lore Plus, Durlaza, Ecotrin, Miniprin, Vazalore What is the most important information I should know about aspirin? Aspirin can cause Kimberly's syndrome, a serious and sometimes fatal condition in children. What is aspirin? Aspirin is a salicylate (uy-EMK-ia-ate) that is used to treat pain, and reduce fever or inflammation. Aspirin is sometimes used to treat or prevent heart attacks, strokes, and chest pain (angina). Aspirin should be used for these conditions only under the supervision of a doctor. Aspirin may also be used for purposes not listed in this medication guide. What should I discuss with my healthcare provider before taking aspirin? Using aspirin in a child or teenager with flu symptoms or chickenpox can cause a serious or fatal condition called Kimberly's syndrome. You should not use aspirin if you are allergic to it, or if you have: a recent history of stomach or intestinal bleeding; a bleeding disorder such as hemophilia; or if you have ever had an asthma attack or severe allergic reaction after taking aspirin or an NSAID (non-steroidal anti-inflammatory drug). Tell your doctor if you have ever had: asthma or seasonal allergies; stomach ulcers; liver disease; kidney disease; a bleeding or blood clotting disorder; gout; or heart disease, high blood pressure, or congestive heart failure. Taking aspirin during late may cause bleeding in the mother or the baby during delivery. Tell your doctor if you are or plan to become . You should not breastfeed while using this medicine. How should I take aspirin? Use exactly as directed on the label, or as prescribed by your doctor. Always follow directions on the medicine label about giving aspirin to a child. Take with food if aspirin upsets your stomach. You must chew the chewable tablet before you swallow it. Do not crush, chew, break, or open an enteric-coated or delayed/extended-release pill. Swallow it whole. Tell your doctor if you have a planned surgery. Store at room temperature away from moisture and heat. Do not use aspirin if you smell a strong vinegar odor in the aspirin bottle. The medicine may no longer be effective. What happens if I miss a dose? Aspirin is used when needed. If you are on a dosing schedule, skip any missed dose. Do not use two doses at one time. What happens if I overdose? Seek emergency medical attention or call the Poison Help line at . Overdose may cause stomach pain, vomiting, diarrhea, vision or hearing problems, fast or slow breathing, or confusion. What should I avoid while taking aspirin? Avoid alcohol. Heavy drinking can increase your risk of stomach bleeding. Avoid taking ibuprofen if you take aspirin to prevent stroke or heart attack. Ibuprofen can make aspirin less effective in protecting your heart and blood vessels. Ask your doctor how far apart your doses should be. Ask a doctor or pharmacist before using other medicines for pain, fever, swelling, or cold/flu symptoms. They may contain ingredients similar to aspirin (such as magnesium salicylate, ibuprofen, ketoprofen, or naproxen). What are the possible side effects of aspirin? Get emergency medical help if you have signs of an allergic reaction: hives; difficult breathing; swelling of your face, lips, tongue, or throat. Stop using aspirin and call your doctor at once if you have: ringing in your ears, confusion, hallucinations, rapid breathing, seizure (convulsions); severe nausea, vomiting, or stomach pain; bloody or tarry stools, coughing up blood or vomit that looks like coffee grounds; fever lasting longer than 3 days; or swelling, or pain lasting longer than 10 days. Common side effects may include: upset stomach, heartburn; drowsiness; or mild headache. This is not a complete list of side effects and others may occur. Call your doctor for medical advice about side effects. You may report side effects to FDA at 0-616-OWI-3197. What other drugs will affect aspirin? Ask your doctor before using aspirin if you take an antidepressant. Taking certain antidepressants with aspirin may cause you to bruise or bleed easily. Ask a doctor or pharmacist before using aspirin with any other medications, especially: a blood thinner (warfarin, Coumadin, Jantoven), or other medication used to prevent blood clots; or other salicylates such as Nuprin Backache Caplet, Kaopectate, KneeRelief, Pamprin Cramp Formula, Pepto-Bismol, Tricosal, Trilisate, and others. This list is not complete. Other drugs may affect aspirin, including prescription and altc-bfl-eeijgtf medicines, vitamins, and herbal products. Not all possible drug interactions are listed here. Where can I get more information? Your pharmacist can provide more information about aspirin. Remember, keep this and all other medicines out of the reach of children, never share your medicines with others, and use this medication only for the indication prescribed. Every effort has been made to ensure that the information provided by [employer] is accurate, up-to-date, and complete, but no guarantee is made to that effect. Drug information contained herein may be time sensitive. [employer] information has been compiled for use by healthcare practitioners and consumers in the [place] and therefore [employer] does not warrant that uses outside of the [place] are appropriate, unless specifically indicated otherwise. [employer] drug information does not endorse drugs, diagnose patients or recommend therapy. [employer] drug information is an informational resource designed to assist licensed healthcare practitioners in caring for their patients and/or to serve consumers viewing this service as a supplement to, and not a substitute for, the expertise, skill, knowledge and judgment of healthcare practitioners. The absence of a warning for a given drug or drug combination in no way should be construed to indicate that the drug or drug combination is safe, effective or appropriate for any given patient. [employer] does not assume any responsibility for any aspect of healthcare administered with the aid of information [employer] provides. The information contained herein is not intended to cover all possible uses, directions, precautions, warnings, drug interactions, allergic reactions, or adverse effects. If you have questions about the drugs you are taking, check with your doctor, nurse or pharmacist. Copyright 5800-0601 [employer]. Version: 18.. Revision Date: 05/30/2023. famotidine (oral/injection) (fam [place] ti margarito) Heartburn Relief, Pepcid, Pepcid AC, Pepcid AC Maximum Strength, Zantac 360 What is the most important information I should know about famotidine? Follow all directions on the label and package. Use exactly as directed. What is famotidine? Famotidine is used to treat and prevent ulcers in the stomach and intestines. It also treats conditions in which the stomach produces too much acid, such as Emiliana-Page syndrome. Famotidine also treats gastroesophageal reflux disease (GERD) and other conditions in which acid backs up from the stomach into the esophagus, causing heartburn. The Zantac 360 brand of this medicine does not contain ranitidine, a medicine that was withdrawn from market in the [place]. Famotidine may also be used for purposes not listed in this medication guide. What should I discuss with my healthcare provider before taking famotidine? Heartburn can feel like a heart attack. Get emergency medical help if you have chest pain that spreads to your jaw or shoulder. You should not use this medicine if you are allergic to famotidine or similar medicines such as ranitidine (Zantac), cimetidine (Tagamet), or nizatidine (Axid). Ask a doctor or pharmacist if this medicine is safe to use if you have: kidney disease; liver disease; cancer stomach; or long QT syndrome (in you or a family member). Ask a doctor before using this medicine if you are or . How should I take famotidine? Use exactly as directed on the label, or as prescribed by your doctor. Famotidine oral is taken by mouth. Famotidine injection is given in a vein if you are unable to take the medicine by mouth. You may take famotidine oral with or without food. Measure liquid medicine with the supplied syringe or a dose-measuring device (not a kitchen spoon). Most ulcers heal within 4 weeks of famotidine treatment, but it may take up to 8 weeks of using this medicine before your ulcer heals. Keep using the medication as directed. Call your doctor if the condition you are treating with famotidine does not improve, or if it gets worse while using famotidine. Your treatment may also include changes in diet or lifestyle habits. Follow all instructions of your doctor or dietitian. Store at room temperature away from moisture, heat, and light. Do not allow the liquid medicine to freeze. Throw away any unused famotidine liquid that is older than 30 days. What happens if I miss a dose? Take the medicine as soon as you can, but skip the missed dose if it is almost time for your next dose. Do not take two doses at one time. What happens if I overdose? Seek emergency medical attention or call the Poison Help line at . What should I avoid while taking famotidine? Drinking alcohol may increase the risk of damage to your stomach. Avoid taking other stomach acid reducers unless your doctor has told you to. However, you may take an antacid (such as Maalox, Mylanta, Gaviscon, Milk of Magnesia, Rolaids, or Tums) with famotidine. What are the possible side effects of famotidine? Get emergency medical help if you have signs of an allergic reaction: hives; difficult breathing; swelling of your face, lips, tongue, or throat. Stop using famotidine and call your doctor at once if you have: confusion, hallucinations, agitation, lack of energy; a seizure; fast or pounding heartbeats, sudden dizziness (like you might pass out); or unexplained muscle pain, tenderness, or weakness especially if you also have fever, unusual tiredness, and dark colored urine. Some side effects may be more likely in older adults and in people who have severe kidney disease. Common side effects may include: headache; dizziness; or constipation or diarrhea. This is not a complete list of side effects and others may occur. Call your doctor for medical advice about side effects. You may report side effects to FDA at 2-573-LVY-2916. What other drugs will affect famotidine? Famotidine oral can make it harder for your body to absorb other medicines you take by mouth. Tell your doctor if you are taking: cefditoren; dasatinib; delavirdine; fosamprenavir; or tizanidine (if you are taking famotidine liquid). This list is not complete. Other drugs may affect famotidine, including prescription and kicp-kzp-pegccyu medicines, vitamins, and herbal products. Not all possible drug interactions are listed here. Where can I get more information? Your doctor or pharmacist can provide more information about famotidine. Remember, keep this and all other medicines out of the reach of children, never share your medicines with others, and use this medication only for the indication prescribed. Every effort has been made to ensure that the information provided by [employer]. ('[employer]') is accurate, up-to-date, and complete, but no guarantee is made to that effect. Drug information contained herein may be time sensitive. [employer] information has been compiled for use by healthcare practitioners and consumers in the [place] and therefore [employer] does not warrant that uses outside of the [place] are appropriate, unless specifically indicated otherwise. [employer] drug information does not endorse drugs, diagnose patients or recommend therapy. [facility] drug information is an informational resource designed to assist licensed healthcare practitioners in caring for their patients and/or to serve consumers viewing this service as a supplement to, and not a substitute for, the expertise, skill, knowledge and judgment of healthcare practitioners. The absence of a warning for a given drug or drug combination in no way should be construed to indicate that the drug or drug combination is safe, effective or appropriate for any given patient. [employer] does not assume any responsibility for any aspect of healthcare administered with the aid of information [employer] provides. The information contained herein is not intended to cover all possible uses, directions, precautions, warnings, drug interactions, allergic reactions, or adverse effects. If you have questions about the drugs you are taking, check with your doctor, nurse or pharmacist. Copyright 8402-2006 [employer]. Version: .. Revision Date: 05/30/2023. Education Materials Total Knee Replacement, Care After This sheet gives you information about how to care for yourself after your procedure. Your doctor may also give you more specific instructions. If you have problems or questions, contact your doctor. What can I expect after the procedure? After the procedure, it is common to have: Pain. Swelling. A small amount of blood coming from your cut from surgery (incision). Clear fluid coming from your cut from surgery. Limited movement of your knee. Follow these instructions at home: Medicines Take vkch-ouz-tcwtlcf and prescription medicines only as told by your doctor. If you were prescribed a blood thinner (anticoagulant), take it as told by your doctor. Ask your doctor if the medicine prescribed to you: ? Requires you to avoid driving or using heavy machinery. ? Can cause trouble pooping (constipation). You may need to take steps to prevent or treat trouble pooping: ? Drink enough fluid to keep your pee (urine) pale yellow. ? Take tcfb-wdp-prvytei or prescription medicines. ? Eat foods that are high in fiber. These include beans, whole grains, and fresh fruits and vegetables. ? Limit foods that are high in fat and sugar. These include fried or sweet foods. Bathing Do not take baths, swim, or use a hot tub until your doctor approves. Ask your doctor if you may take showers. You may only be allowed to take sponge baths. Keep your bandage (dressing) dry until your doctor says it can be taken off. Incision care and drain care Follow instructions from your doctor about how to take care of your cut from surgery. Make sure you: ? Wash your hands with soap and water before and after you change your bandage. If you cannot use soap and water, use hand pet walker. ? Change your bandage as told by your doctor. ? Leave stitches (sutures), skin glue, or skin tape (adhesive) strips in bruna (more content not included)... [facility] 09-21-2023 Note Date of Service September 21, 2023 Subjective The patient was sitting in bed upon examination. Patient denies any chest pain, shortness of breath, dizziness, lightheadedness, nausea or vomiting, or calf pain. No adverse overnight events. Pain has been controlled on medications. Patient states overall she is doing well this morning. She does feel some minimal improvement with the left knee corticosteroid injection. She has been up walking. Plan is for patient to be discharged home. Patient has outpatient physical therapy established. Objective Vitals and Measurements T: 36.7 C (Oral) TMIN: 35.9 C (Axillary) TMAX: 36.7 C (Oral) HR: 52(Apical) RR: 16 BP: 143/60 SpO2: 95% HT: 165.1 cm WT: 87.9 kg BMI: 32.25 Intake and Output 7AM Yesterday to 7AM Today Intake and Output (Last 24 hours) Intake Administration Information 1035.31 Supplement Intake 240.00 Output Intra-Op EBL 50.00 Urine Count 3.00 Total Summary Total Intake 1275.31 Total Output 50.00 Fluid Balance 1225.31 Physical Exam Vital signs stable, afebrile SCDs and TESFAYE hose are in place bilaterally Patient is able to plantarflex and dorsiflex actively Sensation is intact to saphenous, sural, superficial and deep peroneal, and tibial distribution Proximal pin site dressing and main dressing is clean dry and intact. Mild saturation over the distal pin site dressing Negative signs and symptoms of DVT, negative Homans bilaterally Weight Dosing Weight: 87.9 kg (09/20/23) Dosing Weight: 87.9 kg (09/20/23) Medications Medications (22) Active Scheduled: (12) acetaminophen 500 mg Tablet 1,000 mg 2 tab(s), Oral, q6h aspirin 81 mg EC 81 mg 1 tab(s), Oral, BIDM atorvastatin 10 mg tablet 10 mg 1 tab(s), Oral, qHS bisacodyl 5 mg EC tablet 10 mg 2 tab(s), Oral, Once cholecalciferol 25 mcg tablet (Vit D3 1000 units) 50 mcg 2 tab(s), Oral, Daily docusate sodium 100 mg Capsule 100 mg 1 cap(s), Oral, BID docusate-senna (Senokot S) 50 mg-8.6 mg Tablet 2 tab(s), Oral, BID famotidine 20 mg tablet 20 mg 1 tab(s), Oral, qDay lisinopril 5 mg tablet 10 mg 2 tab(s), Oral, Daily magnesium hydroxide 8% Suspension 30 mL UD 30 mL, Oral, Daily multivitamin (Myadec) with minerals Therapeutic Multiple Vitamins with Minerals Tablet 1 tab(s), Oral, qDayM ondansetron 2 mg/ 1 mL 2 mL INJ 4 mg 2 mL, IV Push, q8h Continuous: (0) PRN: (10) acetaminophen 325 mg Tablet 650 mg 2 tab(s), Oral, q4h diphenhydramine 25 mg tablet 25 mg 1 tab(s), Oral, q6h diphenhyDRAMINE 50 mg/mL (1 mL) INJ 25 mg 0.5 mL, IV Push, q6h ketorolac 30 mg/mL (1 mL) vial 15 mg 0.5 mL, IV Push, q6h morphine 2 mg/mL 1 mL syringe 2 mg 1 mL, IV Push, q1h ondansetron 2 mg/ 1 mL 2 mL INJ 4 mg 2 mL, IV Push, q8h oxycodone 5 mg tablet (immediate release) 5 mg 1 tab(s), Oral, q4h oxycodone 5 mg tablet (immediate release) 10 mg 2 tab(s), Oral, q4h prochlorperazine 10 mg/2 mL vial 5 mg 1 mL, IV Push, q6h sodium biphosphate-sodium phosphate 19 gm-7 gm Enema 133 mL, Rectal, qDay Lab Results 09/21 05:15 WBC: 12.7 H Hgb: 11.3 L Hct: 33.2 L Platelet: 176 Neutrophil %: 87.8 H Glucose Level: 151 H Sodium Level: 139 Potassium Level: 4.5 BUN: 27 H Creatinine Lvl (s): 1.00 EKG No qualifying data available. Assessment/Plan HTN (hypertension) Osteoarthritis S/P knee replacement 1. Status post right total knee arthroplasty and left knee corticosteroid injection postop day #1 2. Continue pain medications: Tylenol and oxycodone. Patient was instructed to not take more than 3000 mg of Tylenol in a 24-hour period. She will resume her diclofenac at home. 3. DVT prophylaxis: Take 81 mg aspirin twice daily with food for 4 weeks postoperatively for DVT prophylaxis. 4. Physical therapy: Weightbearing as tolerated with walker 5. H & H: 11.3/33.2, asymptomatic. Postoperative anemia from surgery without intraoperative complications. At this time there is no need for treatment. 6. Reactive leukocytosis: Currently 12.7, afebrile. Patient did receive Decadron intraoperatively. No clinical signs of underlying infection. 7. Encouraged incentive spirometry 8. Continue postoperative medical management per medicine 9. Disposition: Plan will be for probable discharge home this afternoon as long as patient is medically stable, tolerates therapy, and pain is well controlled. She does have outpatient physical therapy established at [facility] [place]. She will follow-up per postoperative instructions. Patient would like her prescriptions E scribed to Jaimie Humphreys in [facility]. Upon discharge she will contact her office with any concerns or questions. I have reviewed the [place] Automated Rx Reporting System (OARRS) report for this patient for refill pattern and other prescriber involvement as part of the appropriate surveillance for the provision of acute and chronic controlled medications. The report was requested and reviewed on the date of this entry, and was considered in the prescribing process This dictation was created using voice recognition software. Phonetic and/or grammatical errors may exist. Digitally Signed by NOEMI JOEL PA-C on 09/21/2023 06:56 AM [facility] 09-21-2023 Note Date of Service September 21, 2023 Subjective The patient was sitting in bed upon examination. Patient denies any chest pain, shortness of breath, dizziness, lightheadedness, nausea or vomiting, or calf pain. No adverse overnight events. Pain has been controlled on medications. Patient states overall she is doing well this morning. She does feel some minimal improvement with the left knee corticosteroid injection. She has been up walking. Plan is for patient to be discharged home. Patient has outpatient physical therapy established. Objective Vitals and Measurements T: 36.7 C (Oral) TMIN: 35.9 C (Axillary) TMAX: 36.7 C (Oral) HR: 52(Apical) RR: 16 BP: 143/60 SpO2: 95% HT: 165.1 cm WT: 87.9 kg BMI: 32.25 Intake and Output 7AM Yesterday to 7AM Today Intake and Output (Last 24 hours) Intake Administration Information 1035.31 Supplement Intake 240.00 Output Intra-Op EBL 50.00 Urine Count 3.00 Total Summary Total Intake 1275.31 Total Output 50.00 Fluid Balance 1225.31 Physical Exam Vital signs stable, afebrile SCDs and TESFAYE hose are in place bilaterally Patient is able to plantarflex and dorsiflex actively Sensation is intact to saphenous, sural, superficial and deep peroneal, and tibial distribution Proximal pin site dressing and main dressing is clean dry and intact. Mild saturation over the distal pin site dressing Negative signs and symptoms of DVT, negative Homans bilaterally Weight Dosing Weight: 87.9 kg (09/20/23) Dosing Weight: 87.9 kg (09/20/23) Medications Medications (22) Active Scheduled: (12) acetaminophen 500 mg Tablet 1,000 mg 2 tab(s), Oral, q6h aspirin 81 mg EC 81 mg 1 tab(s), Oral, BIDM atorvastatin 10 mg tablet 10 mg 1 tab(s), Oral, qHS bisacodyl 5 mg EC tablet 10 mg 2 tab(s), Oral, Once cholecalciferol 25 mcg tablet (Vit D3 1000 units) 50 mcg 2 tab(s), Oral, Daily docusate sodium 100 mg Capsule 100 mg 1 cap(s), Oral, BID docusate-senna (Senokot S) 50 mg-8.6 mg Tablet 2 tab(s), Oral, BID famotidine 20 mg tablet 20 mg 1 tab(s), Oral, qDay lisinopril 5 mg tablet 10 mg 2 tab(s), Oral, Daily magnesium hydroxide 8% Suspension 30 mL UD 30 mL, Oral, Daily multivitamin (Myadec) with minerals Therapeutic Multiple Vitamins with Minerals Tablet 1 tab(s), Oral, qDayM ondansetron 2 mg/ 1 mL 2 mL INJ 4 mg 2 mL, IV Push, q8h Continuous: (0) PRN: (10) acetaminophen 325 mg Tablet 650 mg 2 tab(s), Oral, q4h diphenhydramine 25 mg tablet 25 mg 1 tab(s), Oral, q6h diphenhyDRAMINE 50 mg/mL (1 mL) INJ 25 mg 0.5 mL, IV Push, q6h ketorolac 30 mg/mL (1 mL) vial 15 mg 0.5 mL, IV Push, q6h morphine 2 mg/mL 1 mL syringe 2 mg 1 mL, IV Push, q1h ondansetron 2 mg/ 1 mL 2 mL INJ 4 mg 2 mL, IV Push, q8h oxycodone 5 mg tablet (immediate release) 5 mg 1 tab(s), Oral, q4h oxycodone 5 mg tablet (immediate release) 10 mg 2 tab(s), Oral, q4h prochlorperazine 10 mg/2 mL vial 5 mg 1 mL, IV Push, q6h sodium biphosphate-sodium phosphate 19 gm-7 gm Enema 133 mL, Rectal, qDay Lab Results 09/21 05:15 WBC: 12.7 H Hgb: 11.3 L Hct: 33.2 L Platelet: 176 Neutrophil %: 87.8 H Glucose Level: 151 H Sodium Level: 139 Potassium Level: 4.5 BUN: 27 H Creatinine Lvl (s): 1.00 EKG No qualifying data available. Assessment/Plan HTN (hypertension) Osteoarthritis S/P knee replacement 1. Status post right total knee arthroplasty and left knee corticosteroid injection postop day #1 2. Continue pain medications: Tylenol and oxycodone. Patient was instructed to not take more than 3000 mg of Tylenol in a 24-hour period. She will resume her diclofenac at home. 3. DVT prophylaxis: Take 81 mg aspirin twice daily with food for 4 weeks postoperatively for DVT prophylaxis. 4. Physical therapy: Weightbearing as tolerated with walker 5. H & H: 11.3/33.2, asymptomatic. Postoperative anemia from surgery without intraoperative complications. At this time there is no need for treatment. 6. Reactive leukocytosis: Currently 12.7, afebrile. Patient did receive Decadron intraoperatively. No clinical signs of underlying infection. 7. Encouraged incentive spirometry 8. Continue postoperative medical management per medicine 9. Disposition: Plan will be for probable discharge home this afternoon as long as patient is medically stable, tolerates therapy, and pain is well controlled. She does have outpatient physical therapy established at [facility] [place]. She will follow-up per postoperative instructions. Patient would like her prescriptions E scribed to Jaimie Humphreys in [facility]. Upon discharge she will contact her office with any concerns or questions. I have reviewed the [place] Automated Rx Reporting System (OARRS) report for this patient for refill pattern and other prescriber involvement as part of the appropriate surveillance for the provision of acute and chronic controlled medications. The report was requested and reviewed on the date of this entry, and was considered in the prescribing process This dictation was created using voice recognition software. Phonetic and/or grammatical errors may exist. Digitally Signed by NOEMI JOEL PA-C on 09/21/2023 06:56 AM [facility] 09-20-2023 Note ORIGINAL EXAMINATION: TWO XRAY VIEWS OF THE RIGHT KNEE 09/20/2023 12:43 pm COMPARISON: None. HISTORY: ORDERING SYSTEM PROVIDED HISTORY: Reason for Exam: Status Post Arthroplasty FINDINGS: A complete knee replacement is identified. The components appear well seated and intact. Gas within the soft tissues is likely postoperative. There are surgical changes of the femur and surgical shade overlying the skin surface. No acute fracture or dislocation is noted. IMPRESSION: Surgical changes. Interpreted by: Araceli Wilson MD Preliminary Report By: Araceli Wilson MD Electronically signed By Araceli Wilson MD Dictated Date: 09/20/2023 1:05:33 PM Prelim Date: 09/20/2023 1:06:13 PM Sign Date: 09/20/2023 1:06:13 PM Ordering Provider: AREN ZULUAGA [facility] 09-20-2023 Anesthesiology Consult note Patient: JENNIFER MON Age: 82 years Sex: Female : 1940 Associated Diagnoses: None Author: LAM DAVILA Preoperative Information Anesthesia history Patient's history: negative. Family's history: negative. Health Status Allergies: Allergic Reactions (Selected) No Known Medication Allergies, Allergies (1) ActiveReaction No Known Medication AllergiesNone Documented Current medications: (Selected) Inpatient Medications Ordered Betadine 10% topical solution: 17.5 mL, mL/hr, Topical (INT), PREOP pharm Decadron: 10 mg, 1 mL, IV Push, AsDirected LR 1,000 mL: 20 mL/hr, Intravenous, Stop: 09/20/23 23:59:00 EST Naropin 25 mg + Toradol 15 mg + EPINEPHrine 1 mg/mL injectable solution 0.3 mg + morphine 2.5 mg...: 25 mg, 5 mL, mL/hr, Other, PREOP pharm Naropin 25 mg + Toradol 15 mg + EPINEPHrine 1 mg/mL injectable solution 0.3 mg + morphine 2.5 mg...: 25 mg, 5 mL, mL/hr, Other, PREOP pharm ceFAZolin: 2 gram(s), 200 mL/hr, IV Piggyback, PREOP pharm tranexamic acid 1 g / 100 mL 0.7% NaCl PMX: 1 gram(s), 100 mL, 300 mL/hr, IV Piggyback, AsDirected tranexamic acid 1 g / 100 mL 0.7% NaCl PMX: 1 gram(s), 100 mL, 300 mL/hr, IV Piggyback, AsDirected Documented Medications Documented Vitamin D3 50 mcg (2000 intl units) oral tablet: 50 mcg, 1 tab(s), Oral, Daily, 30 tab(s), 0 Refill(s) acetaminophen 650 mg oral tablet, extended release: 1,300 mg, 2 tab(s), Oral, Daily, for 7 day(s), 21 tab(s), 0 Refill(s) diclofenac sodium 75 mg oral delayed release tablet: 75 mg, 1 tab(s), Oral, BID, 180 tab(s), 0 Refill(s) lisinopril 10 mg oral tablet: 10 mg, 1 tab(s), Oral, Daily, 100 tab(s), 0 Refill(s) lovastatin 40 mg oral tablet: 1 cap(s), Oral, Daily, 100 tab(s), 0 Refill(s) vitamin E 180 mg oral capsule: 180 mg, 1 cap(s), Oral, qDay, 100 cap(s), 0 Refill(s), Medications (8) Active Scheduled: (7) ceFAZolin 2 gram(s), IV Piggyback, PREOP pharm dexamethasone 10 mg/mL (1mL) SDV 10 mg 1 mL, IV Push, AsDirected povidone iodine topical 17.5 mL, Topical (INT), PREOP pharm ropivacaine 25 mg + ketorolac 15 mg + epinephrine 0.3 mg + morphine 2.5 mg 25 mg 5 mL, Other, PREOP pharm ropivacaine 25 mg + ketorolac 15 mg + epinephrine 0.3 mg + morphine 2.5 mg 25 mg 5 mL, Other, PREOP pharm tranexamic acid PMX 1 gram(s) 100 mL, IV Piggyback, AsDirected tranexamic acid PMX 1 gram(s) 100 mL, IV Piggyback, AsDirected Continuous: (1) Lactated Ringers 1,000 mL 1,000 mL, Intravenous, 20 mL/hr PRN: (0) Problem list: Active Problems (4) Degenerative disc disease, cervical High cholesterol Hypertension Osteoarthritis Histories Past Medical History: No active or resolved past medical history items have been selected or recorded. Family History: No family history items have been selected or recorded. Procedure history: Arthroscopy of knee ([id number]). Comments: 09/20/2023 8:59 Montse Valente RN LEFT Social History Social & Psychosocial Habits Alcohol 09/20/2023 Use: Current Frequency: 1-2 times per month Substance Abuse 09/20/2023 Use: Never Tobacco 09/20/2023 Tobacco Use: Never (less than 100 in l . Physical Examination Vital Signs 09/20/2023 8:52 EST Temperature Temporal Artery 36.5 DegC Peripheral Pulse Rate 65 bpm Respiratory Rate 13 br/min LOW Systolic Blood Pressure Non-Invasive 163 mmHg HI Diastolic Blood Pressure Non-Invasive 73 mmHg Vital Signs(last 24 hrs) Last Charted Resp Rate L 13br/min (SEP 20 08:52) SBPH 163mmHg (SEP 20 08:52) DBP73 mmHg (SEP 20 08:52) BMI32.25 (SEP 20 09:00) Measurements from flowsheet : Measurements 09/20/2023 9:00 EST Body Mass Index 32.25 kg/m2 09/20/2023 8:52 EST Height 165.1 cm Admission Weight 87.9 kg [place] Body Weight 57.00 kg Admission Body Mass Index 32.25 m2 Pain assessment: Pain Assessment 09/20/2023 8:52 EST Primary Pain Location Shoulder Primary Pain Laterality Left Primary Pain Intensity 5 Pain Scale Type 0-10 Pain scale . General: Alert and oriented. Airway: Normal temporomandibular joint mobility. Mallampati classification: II (soft palate, fauces, uvula visible). Dentition Evaluation: Denies loose/chipped teeth. Respiratory: Lungs are clear to auscultation, Respirations are non-labored. Cardiovascular: Normal rate, Regular rhythm. Neurologic: Alert, Oriented. Review / Management Results review: No qualifying data available , Lab results 09/20/2023 9:42 EST History & Physical Update On Chart Yes 09/20/2023 9:30 EST SN - Preop - CTm Pt Ready for OR/Proced 09/20/2023 9:30 09/20/2023 9:27 EST Pre-op Preparation Shave prep done by clippers celecoxib 400 mg mg famotidine 20 mg mg 09/20/2023 9:22 EST citric acid-sodium citrate Not Done: Not Appropriate at this Time (Not Done) 09/20/2023 9:20 EST Antiembolism Stocking On/Re-applied left thigh high 09/20/2023 9:15 EST Preop Nasal Swab Povidone-Iodine 09/20/2023 9:12 EST Lactated Ringers Injection 1,000 mL mL 09/20/2023 9:10 EST ABO/Rh Interp A POS Antibody Screen Gel Negative ABSC 09/20/2023 9:09 EST Continuous IV Infusions LR Hand Left 09/20/2023 20 gauge Peripheral IV Activity: Insert new site Peripheral IV Dressing Condition: Clean, Dry, Intact Peripheral IV Dressing Activity: Applied, Transparent dressing Peripheral IV Line Status/Patency: Continuous infusion Peripheral IV Line Care: Secured with tape Peripheral IV Site Condition: No complications Peripheral IV Equipment: Extension set, PRN Adaptor Peripheral IV Number of Attempts: 1 09/20/2023 9:00 EST Designated Person #1 We May Share PHI SOL DEL VALLE [phone] Designated Person #1 Relationship Daughter Designated Person #2 We May Share PHI RIC TRUJILLO [phone] Designated Person #2 Relationship Daughter Privacy Restrictions Requested None Body Mass Index 32.25 kg/m2 Status N/A Sensory Deficits None Sleep Apnea Snore No Sleep Apnea Tired Yes Sleep Apnea Obstruction No Sleep Apnea Pressure Yes Sleep Apnea BMI No Sleep Apnea Age Yes Sleep Apnea Neck No Sleep Apnea Gender No Sleep Apnea Score 3 Diagnosed With Sleep Apnea No Advanced Directives Yes Advance Directive Type [place] Durable Power of Welding Engineer for [place], [place] Declaration (Living Will) Advance Directive Location Indicates that [place] has been given copy Infectious Disease Symptoms Patient states no symptoms Infectious Disease Recent Exposure No Alcohol and Drug Use No Employee of Institutional Living No Health Care Employee No History of Exposure to TB No History of Positive Chest X-Ray for TB No History of Positive TB Skin Test No Homeless No Known Immunosuppression No Recent Immigrant No Resident of Institutional Living No Bloody Sputum No Fatigue No Fever No Loss of Appetite No Night Sweats No Persistent Cough > 3 Weeks No Weight Loss No Patient Aware Date/Time Of Surgery Yes Pre-Op Patient Education NPO after midnight, No makeup, No jewelry, Responsible Democrat, Aware of surgery location, Pre-op education done, 1 bottle CHG wash with instructions given, No ordered medications, Total Joint Replacement/Colorectal Book Given, SSI prevention handout given, Anesthesia block education provided SN - Preprocedure Comments Spoke with patient, Verbalizes/Nonverbally indicates understanding Anesthesia Evaluation Date/Time 08/26/2023 12:43 Anesthesia Evaluation Performed By LAM DAVILA KINDERGARTNER-CDL FLATBED TRUCK DRIVER Anesthesia Evaluation Result Approved Individuals Taught Patient, Daughter Barriers to Learning None evident Teaching Method Explanation Preferred Spoken Language Arabic Preferred Written Language Arabic Total Joint Book Given Yes Pre Procedure/Surgery Education Appropriate expectations Procedure/Surgical Teaching Evaluation Verbalizes/Nonverbally indicates understanding Information Given by Patient Patient's Current Physicians DR GIANG - PCP Discharge To, Anticipated Home independently Prev Test Positive/Diagnosis w/COVID-19 No Current Quarantine/Isolated any Illness No Any Contact with Sick Animals/Birds No Traveled Anywhere in Last 30 Days No Lost Weight Unintentionally Recently No Eat Poorly Due to Decreased Appetite No Total MST Score 0 N/A Personal Devices, Patient Valuables Glasses Anesthesia/Transfusions Prior anesthesia Admission Note-Nursing Same Day Patient History 09/20/2023 8:56 EST SN - Preop - CTm Pt in SDS Room 09/20/2023 8:40 09/20/2023 8:55 EST Allergies No Consent Form Signed Yes Patient Dressed In Hospital gown Pre-op Preparation Glasses removed, Jewelry removed CHG Preoperative Wash/Wipe Night before procedure, Day of procedure CHG Skin Prep Completed for Eligible Surgery History & Physical On Chart Yes Belongings At Bedside Glasses, Necklace, Pants, Purse, Shirt, Shoes, Socks, Undergarments NPO Status Maintained, More than 8 hours Patient ID Band on and Verified Yes Implants Verified Yes Pacemaker/AICD Verified Yes Site Verified by Patient/Family Yes Blood Consent Signed Yes Last Fluid Intake 09/19/2023 19:00 Last Food Intake 09/19/2023 19:00 Last Void 09/20/2023 8:00 Patient Cleared for Surgery By ALEX GIANG MD 09/20/2023 8:52 EST Height 165.1 cm Admission Weight 87.9 kg [place] Body Weight 57.00 kg Admission Body Mass Index 32.25 m2 Temperature Temporal Artery 36.5 DegC Peripheral Pulse Rate 65 bpm Respiratory Rate 13 br/min LOW Systolic Blood Pressure Non-Invasive 163 mmHg HI Diastolic Blood Pressure Non-Invasive 73 mmHg Primary Pain Location Shoulder Primary Pain Laterality Left Primary Pain Intensity 5 Pain Scale Type 0-10 Pain scale Heart Rhythm Regular Dorsalis Pedis Pulse, Left 2+ Normal Dorsalis Pedis Pulse, Right 2+ Normal Radial Pulse, Left 2+ Normal Radial Pulse, Right 2+ Normal Respirations Unlabored Oxygen Therapy Room air Oxygen Saturation 95 % Abdomen Description Non-distended, Soft Abdomen Palpation Non-Tender Bowel Sounds All Quadrants Present Urinary Elimination Voiding, no difficulties Skin Temperature Warm Skin Description [place], Dry Skin Integrity Intact Neurological Symptoms Patient denies Extremity Movement Equal Characteristics of Speech Clear Level of Consciousness Alert Strength All Extremities Strong Tone All Extremities Normal Sensation All Extremities Intact Affect/Behavior Appropriate, Calm, Cooperative Orientation Oriented x 4 Activity Status ADL Awake, Resting Standard Safety ID band on, Call device within reach, Bed in low position, Wheels locked, Upper/Half-Length side-rails up . Assessment and Plan [place] [employer] Anesthesiologists (ASA) physical status classification: Class III. Anesthetic Preoperative Plan Anesthetic technique: Spinal. Regional: Spinal. Postoperative pain management: adductor canal block. Risks discussed: nausea, vomiting, headache, hypotension, allergic reaction, serious complications. Informed consent: signed by patient. Digitally Signed by LAM DAVILA on 09/20/2023 10:24 AM [facility] 08-26-2023 Note ORIGINAL EXAMINATION: CT of the right knee was performed without the administration of intravenous contrast. Multiplanar reformatted images are provided for review. Automated exposure control, iterative reconstruction, and/or weight based adjustment of the mA/kV was utilized to reduce the radiation dose to as low as reasonably achievable.08/26/2023 11:31 am Axial images of the knee are obtained with sagittal and coronal reconstructions. Limited axial imaging is also performed through the ipsilateral hip and ankle joints. COMPARISON: None HISTORY: ORDERING SYSTEM PROVIDED HISTORY: Reason for Exam: Valgus deformity FINDINGS: Decreased bone mineralization. There is moderate to severe tricompartmental osteophytosis and joint space narrowing. Multiple punctate to small in size intra-articular loose bodies are identified. Costochondral calcification is also present. A fabella is noted. Moderate knee joint effusion. Popliteal artery calcifications. No suspicious osseous lesion. Intramuscular lipoma seen within the lateral head gastrocnemius. Limited images of the ipsilateral hip and ankle demonstrate comment hamstrings calcifications/enthesopathy. In the pelvis, there is diverticulosis without diverticulitis. IMPRESSION: Severe tricompartmental osteoarthrosis. 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 Incidentally noted diverticulosis without diverticulitis. I have personally reviewed the images of this examination and agree with the resident's findings and interpretations. Interpreted by: Arnaldo Ott MD Preliminary Report By: Ramesh Whitten Electronically signed By Arnaldo Ott MD Dictated Date: 08/26/2023 1:52:39 PM Prelim Date: 08/26/2023 4:18:41 PM Sign Date: 08/26/2023 4:18:41 PM Ordering Provider: AREN ZULUAGA [facility] 04-30-2021 Note HNO ID: [id number] Author: Jin Hinds MD Service: ? Author Type: Physician Type: Progress Notes Filed: 05/05/2021 8:44 PM Note Text: CONSULT ORTHOPAEDIC: KNEE PRIMARY CARE PHYSICIAN: No primary care provider on file. REFERRING PROVIDER: SELF ASSESSMENT AND PLAN Impression: Left Knee Severe Degenerative Osteoarthritis, Primary After discussion with Jennifer Mon, continued non-operative management of ship unloader bracing and Voltaren gel was chosen. The patient currently has had six months of unsuccessful non-operative treatment as outlined in the HPI below and progressive symptoms. She states that she currently has no limitations and is able to do stairs in a normal fashion with the use of a railing. She had an injection in January which did very well and currently does not have significant pain. Progressive Symptoms Include: Pain worsened by weight bearing Pain effecting living situation Pain limiting ability to stay fit and healthy. The patient has been ordered: Automatic Buffing Wheel Former brace CONSULTS: Patient does not require consults for optimization at this time. There is no problem list on file for this patient. SUBJECTIVE CHIEF COMPLAINT: Knee Pain HPI: Jennifer Mon is a 80 year old patient here for evaluation and management of left knee pain. Jennifer Mon has had progressive problems with the knee(s) a few times a day over the past 4 year(s) interfering with activities which include rising from a sitting position and getting in and out of a car. The problem began limiting activities 3+ years ago. Currently the pain in the joint is rated at 0 out of 10 with minimal activity. The pain is intermittent and patient is unable to locate. The pain is described as non existent. Relieving factors include Tylenol and Diclofenac. There is no specific incident that brought about this pain. Jennifer Mon states her left knee catches occasionally FUNCTIONAL STATUS: Climb a flight of stairs or walk up a hill (5.50 METs) Preoperative Ambulatory Status: Independent Community Distances Number of Entry Steps: 2 Bedroom Location: First floor Bathroom Location: First floor Caregiver Assistance: Inconsistent/None Home Location: [place] to 150 miles PREVIOUS TREATMENTS: Attempted Weight Loss, 01/2020 Gel Injection, Prescription Medication REVIEW OF SYSTEMS: PAIN ASSESSMENT: See HPI. MUSCULOSKELETAL: See HPI. Surgical Risk Factors: None PAST MEDICAL HISTORY Diagnosis Date - Hypercholesterolemia PAST SURGICAL HISTORY Procedure Laterality Date - NONE No family history on file. Social History Tobacco Use - Smoking status: Never Smoker - Smokeless tobacco: Never Used Substance Use Topics - Alcohol use: Yes Comment: Occasionally - Drug use: Not on file ALLERGIES: Patient has no known allergies. MEDICATIONS: lovastatin 40 mg tablet Take 40 mg by mouth daily at bedtime. diclofenac, EC, (VOLTAREN) 75 mg EC tablet Take 75 mg by mouth twice daily. lisinopril (ZESTRIL, PRINIVIL) 10 mg tablet Take 10 mg by mouth once daily. amLODIPine (NORVASC) 10 mg tablet Take 10 mg by mouth once daily. Acetaminophen 500 mg cap Take by mouth. aspirin 81 mg chewable tablet Take 81 mg by mouth once daily. Vitamin E, dl, acetate, (VITAMIN E) 100 unit capsule Take 100 Units by mouth once daily. cholecalciferol, vitamin D3, (VITAMIN D3 ORAL) Take by mouth. PHYSICAL EXAM: Ht 165.1 cm (5' 5 ) Wt 87.1 kg (192 lb) BMI 31.95 kg/m? All other systems deferred. GENERAL: Appears healthy, well-nourished, no deformities. HABITUS: Normal GAIT: Normal, the patient did not have trouble getting onto the exam table. KNEE EXAM: Right: Alignment: Neutral Range of motion is 0 degrees in extension and 130 degrees of flexion. Extension La degrees Pain with ROM: No Effusion: None Tender to the palpation of None Pain with patellar compression: No Stability: Anterior/Posterior stable and Varus/Valgus stable Hip Exam: flexion to 100+ degrees, full extension, internal/external rotation adequate and no pain with log roll Neurovascular Status: Sensation Intact and Moves foot and ankle up AND down Left: Focused examination of Left knee, patient has mild laxity and slight joint space opening MEDIAL with valgus stress. Alignment: Varus deformity, Correctable Range of motion is 0 degrees in extension and 125 degrees of flexion. Extension La degrees Pain with ROM: No Effusion: Slight Tender to the palpation of Medial joint line Pain with patellar compression: No Stability: Anterior/Posterior stable and Varus/Valgus stable Hip Exam: flexion to 100+ degrees, full extension, internal/external rotation adequate and no pain with log roll Neurovascular Status: Sensation Intact, Moves foot and ankle up AND down and 2+ dorsalis pedis DATA: Diagnostic tests reviewed for today's visit: Outside x-rays Left knee X-Ray: Medial joint space noted to hav (more content not included)... [facility] Evaluation + Plan note Future Appointments [facility] Hospital course Narrative No data available for this section [facility] Hospital Discharge instructions No data available for this section [facility] Progress note No data available for this section [facility] Summary Purpose Family History No Family History Records FoundNo Family History Records Found No data available for this section No data available for this section No data available for this section No Family History Records Found Advance Directives No Advanced Directives Records FoundNo Advanced Directives Records FoundNo Advanced Directives Records Found Additional Source Comments INFORMATION SOURCE (unrecogn ized section and content) DATE CREATED AUTHOR AUTHOR'S ORGANIZ ATION 12/09/2021 [facility] DATE CREATED AUTHOR AUTHOR'S ORGANIZ ATION 11/03/2023 [facility] ([place]) Patient Care team informatio n (unrecognized section and content) Care Team Personnel Name: ALEX GIANG MD Member Role: Primary Care Physician Address: Address: [address] [place] [address] Care Team Related Persons Name: RIC TRUJILLO Care Team Personnel Name: ALEX GIANG MD Member Role: Primary Care Physician Address: Address: [address] [place] [address] Care Team Related Persons Name: RIC TRUJILLO Care Team Personnel Name: ALEX GIANG MD Member Role: Primary Care Physician Address: Address: [address] [place] [address] Care Team Related Persons Name: RIC TRUJILLO FOR RECORDS PERTAINING TO PATIENTS WHO ARE OR HAVE BEEN ENROLLED IN A CHEMICAL DEPENDENCY/SUBSTANCEABUSE PROGRAM, SOME INFORMATION MAY BE OMITTED. This clinical summary was aggregated from multiple sources. Caution should be exercised in using it in the provision of clinical care. This summary normalizes information from multiple sources, and as a consequence, information in this document may materially change the coding, format and clinical context of patient data. In addition, data may be omitted in some cases. CLINICAL DECISIONS SHOULD BE BASED ON THE PRIMARY CLINICAL RECORDS. [email or web address]. provides no warranty or guarantee of the accuracy or completeness of information in this document.
== END | disposition home or self-care (01) ==
LOC: CT 17:48
PROVIDERS: PCP Family Medicine; Referring Provider Specialist; Visit Provider Specialist
DX: M17.12 Unilateral primary osteoarthritis, left knee (principal); G89.29 Other chronic pain
CPT/HCPCS: 73700

== ENCOUNTER 2023-12-21 07:03 | Observation (INO) | payer MEDICARE, SELFPAY ==
[2023-12-08 16:28] LABS: Absolute Lymphocyte Count 1.63 X10^3/uL (0.83-4.51); Basophil# 0.05 X10^3/uL; Basophil% 1.2 % (0-1); Eosinophil# 0.09 X10^3/uL; Eosinophils% 2.2 % (0-5); Hematocrit 35.8 % (37-47); Hemoglobin 11.3 g/dL (12.0-15.0); Lymphocyte # 1.63 X10^3/ul (0.83-4.51); Mean Corp Hgb Conc 31.6 g/dL (32-36); Mean Corpuscular Hgb 28.4 pg (27.0-32.0); Mean Corpuscular Volume 89.9 fL (81-99); Mean Platelet Vol. 10.6 fl (6.2-12.0); Monocyte# 0.31 X10^3/uL; Monocyte% 7.6 % (0-10); NRBC Flagged by Analyzer 0 % (0-5); Neutrophil # 1.98 X10^3/uL (2.7-7.7); Neutrophil % 48.8 % (47-70); Platelet Count 230 K/mm3 (150-450); RBC Distribution Width CV 13.4 % (11.6-14.6); RBC Distribution Width SD 44.2 fl (35.1-43.9); Red Blood Count 3.98 M/mm3 (4.2-5.4); White Blood Count 4.1 K/mm3 (4.4-11.0)
[2023-12-08 17:05] LABS: Albumin, Serum 3.6 g/dL (3.2-5.0); Anion Gap 3 (5-15); BUN 14 mg/dL (7-18); BUN/Creat Ratio 22.6 RATIO (10-20); Calcium,Total 9.4 mg/dL (8.5-10.1); Chloride 107 mmol/L (98-107); Creatinine, Serum 0.62 mg/dL (0.55-1.02); EST Glomerular Filtration Rate 98 mL/min (>60); Est Glom Filt Rate - Afr Amer 118 mL/min (>60); Glucose 83 mg/dL (74-106); Potassium 3.6 mmol/L (3.5-5.1); Sodium Level 137 mmol/L (136-145)
[2023-12-09 09:28] LABS: Magnesium 2.5 mg/dL (1.6-2.6)
--- NOTE | 2023-12-15 14:47 | PCM.HP.BLA ---
History and Physical History and Physical? Patient Name: Jennifer Mon : 1940 From:? NOEMI JOEL PA-C? DATE OF PRE-OPERATIVE EXAM: 12/14/2023 DATE OF SURGERY:? 12/21/2023 SCHEDULED PROCEDURE:? Left total knee arthroplasty HISTORY OF PRESENT ILLNESS: Preoperative history and physical exam was performed on December 14, 2023.? This is an 83-year-old female who has been having ongoing pain with bilateral knees.? She previously underwent a right total knee arthroplasty by Dr. Aren Guzman on September 20, 2023.? She is doing well from that procedure.? Patient has continued to have constant pain with her left knee.? Pain is increased with going up and down stairs, sitting and walking.? She feels stiffness in the knee and achiness.? She has pain over the medial aspect of the knee.? She has difficulty with activities of daily living including bathing/showering, getting dressed, and shopping due to the knee pain.? She has attempted previous corticosteroid injections and Visco supplementation injections with minimal relief.? She has been taking diclofenac for a long period of time and Tylenol.? She denies past history of surgery on her left knee.? She uses a walker for ambulatory assistance.? She has been through past physical therapy without relief.? After failing conservative measures and discussing all treatment options with Dr. Aren Guzman, the patient does wish to proceed with a left total knee arthroplasty.? Patient does have medical history pertinent for hypertension and hypercholesterolemia.? She states after this surgery she will have no one to assist her at home and there are concerns with her safety.? Patient has a risk assessment and prediction tool score of 2/12 which puts her at a high predictive score for extended inpatient rehabilitation upon discharge.? Patient denies past history of DVT or pulmonary embolism.? Denies any recent chest pain, shortness of breath, fevers chills or recent infections.? There is been no change in medical history.? She has had previous clearance from primary care physician Dr. Sommers.?? REVIEW OF SYSTEMS: Review Of Systems: Constitutional: Reports weight change, but denies anorexia, anxiety, change in appetite and fever,hard of hearing, and vision problems. Cardiovasular: Denies chest pain, heart murmur, irregular heartbeat and peripheral vascular disease. Respiratory: Denies asthma, cough, pneumonia, sleep apnea, shortness of breath, tuberculosis and wheezing. Gastrointestinal: Denies constipation, diarrhea, heartburn, nausea, bloody stools and vomiting, and difficulty swallowing. Genitourinary: Reports more than 3 months without a period Denies incontinence. Musculoskeletal: Reports trouble walking, but denies leg swelling and weakness and limp. Skin: Denies Raynaud's, history of shingles and tattoo. Neurological: Denies ambulatory dysfunction, dizziness, numbness/tingling and tremor. Psychiatric: Denies anxiety, depression, insomnia, mental illness and stress. Hematologic/Lymphatic: Denies anemia, bleeding/bruising tendency and past transfusion. Reviewed, no changes. PAST MEDICAL HISTORY: Advance Care Plan: Other Directive, POA Effective Date: 10/17/2015 Other Directive, LIVING WILL Effective Date: 10/17/2015 Past Medical History: Medical Problems: Hypercholesterolemia, High Blood Pressure, carotid artery stenosis, osteopenia Accidents: Knee Problems Surgical Hx: Arthroscopy - (09/13/2006) LT KNEE, DR. CASTILLO, [facility] Knee Replacement RT - (09/20/2023) ROBOTIC ASSISTED RT TKR AND INJECTION LEFT KNEE DR. GUZMAN AT [facility] Anesthesia Complications: None Assistive Devices: Glasses, Cane Reviewed and updated. 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 Personal Habits:? Cigarette Use: Former.Smokeless Tobacco: Never Used Smokeless Tobacco.E-Cigarette Use: Never used.Alcohol: Occasionally.Drug Use: Denies Use.Enjoy Exercising: Exercises 1-3 X/Week. Reviewed and updated. VITALS: Ht: 64 Wt: 193lb Wt k.545 BMI: 33.1 BP: 126/80 Pulse: 61 Resp: 16 T: 97.9 T: 36.6C Pain Level: 5 O2SatR: 99 ALLERGIES: No Known Drug Allergy? MEDICATIONS: Folic Acid 1 mg 1 by mouth every day, Iron (Ferrous Sulfate) 325 (65 Fe) MG one by mouth twice? per day, Lisinopril 10 mg 2 by mouth every day, Lovastatin 40 mg 1 by mouth every day, Vitamin D3 2000 Unit 1po qday, Vitamin E 180 MG (400 Unit) one cap po once daily, Tylenol 8 Hour Arthritis Pain 650 mg 2 tablets 4x/day, Diclofenac Potassium 50 mg take 1 tablet by mouth every 8 to 12 hours as needed for pain PRE-OP EXAM:? General appearance:NORMAL? ? ? Other: Eyes: Conjunctivae and lids: NORMAL? Pupils: ERR Ears, Nose, Mouth, and Throat: NORMAL? Other: Inspection of lips, teeth and gums: NORMAL? ?Other: Neck: Examination of neck: no masses noted. Respiratory: Assessment of respiratory effort: NORMAL? ?Other: ?Auscultation of lungs: clear to auscultation no wheezes, rhonchi or rales. Cardiovascular:? Auscultation of heart: regular rate and rhythm, positive systolic murmur PHYSICAL EXAMINATION: Patient does walk with an antalgic gait.? She is currently using a walker.? The left knee is without erythema or signs of infection.? She has mild effusion.? She has varus alignment which is correctable on exam.? Tenderness to palpation along the medial joint line.? Range of motion: Lacks 40 full extension to 118 flexion.? Stable to varus/valgus stress test, stable to anterior/posterior drawer exam with firm endpoint.? Sensation intact to light touch. 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 IMPRESSION: 1.? Severe left knee osteoarthritis with varus alignment 2.? Presence of right total knee arthroplasty September 2023 3.? Hypertension 4.? Hypercholesterolemia 5.? Obesity with BMI 33.1 PLAN: Dr. Aren Guzman did discuss and review with the patient all treatment options including surgical versus nonsurgical options.? Patient does wish to proceed with the above-stated procedure.? Potential risks, benefits, and complications of the procedure were discussed in detail including but not limited to , infection, nerve and blood vessel damage, persistent pain, numbness, tingling, paresthesias, blood clot, pulmonary embolism, and requirement for possible further surgery.? The patient expressed full understanding and has no further questions for the doctor.? Patient does agree to proceed with the above-stated procedure and has signed the surgery consent form. POST-OP MEDICATION PLAN: Pain Medications:? Postoperative pain regimen will be initiated by Dr. Aren Guzman at the hospital.? Patient was started on our anemia protocol in which she is currently taking ferrous sulfate and folic acid. Risk assessment and prediction tool (RAPT) score = 2/12 DVT Prophylaxis:? Aspirin 81 mg twice daily for 4 weeks postoperatively.? Denies past history of DVT or pulmonary embolism This dictation was created using voice recognition software. Phonetic and/or grammatical errors may exist. ___? I have re-examined the patient.? There are no clinical changes since date of exam. ___? See progress notes for changes. ___? Dictated on admission Date: ? ? ?Time: Signature:
[2023-12-21] VITALS (13 sets, daily range): BP systolic 102–186; BP diastolic 43–81; PULSE 63–78; RESP 16–18; TEMP 36.2–36.8; O2SAT 94–100; BMI 31.8
[2023-12-21] MEDS: Lactated Ringers 1,000 ML 999 ML IV ×2 (07:02→10:45)
[2023-12-21] MEDS: Magnesium 1 GM over 15 mins IV (07:02)
[2023-12-21] MEDS: Gabapentin 600 MG Tablet PO (07:03)
[2023-12-21] MEDS: Celecoxib 200 MG Capsule 400 MG PO (07:03)
[2023-12-21] MEDS: Acetaminophen 500 MG Tablet 1000 MG PO ×3 (07:03→21:24)
[2023-12-21 07:50] LABS: Bedside Glucose 106 mg/dL (74-106)
--- NOTE | 2023-12-21 08:45 | KNEE_PTH ---
PATIENT: FRED RESTREPO LOC: MS3 U#:[id number] AGE/SX: 83/F ROOM: MS305 RE12/21/[address]: Dr. Aren Guzman MD : 1940 BED: 1 DIS: 12/23/2023 SPEC #: [id number] RECD: 12/21/23 11:54 STATUS: SAMIR EATON #: [id number] ANDREI: 12/21/23 08:[address]: Aren Guzman DEPT: SURGICAL PATHOLOGY RECD BY: Krista Monzon ENTERED: 12/21/23 11:54 SP TYPE: TOTAL KNEE OTHR DR: Dr. Shant Sommers MD Tissues: Knee, NOS Procedures: Decalcification bone/plaque Surgery Specimen Level IV HEADER OPERATION: ERAS, left total knee arthroplasty with robotic assistance PRE-OP DIAGNOSIS: Severe left knee osteoarthritis with varus alignment TISSUE SUBMITTED: Left knee bone MICROSCOPIC DIAGNOSIS Bone and soft tissue, left knee, total knee replacement/resection: Pieces of bone with degenerative osteoarthritic changes. Fibroadipose tissue, fibroconnective tissue and reactive synovial tissue. LUIS ALFREDO:kendrick 12/26/2023 MICROSCOPIC DESCRIPTION Slides are reviewed. GROSS DESCRIPTION Received is one container designated left knee bone. The specimen consists of multiple fragments of jennings-yellow bone measuring in aggregate 11.0 x 10.0 x 4.0 cm. A small piece of soft tissue attached to one of the pieces of bone measures 4.0 x 2.5 x 0.5 cm. A number of bony fragments contain articular surfaces consistent with tibial plateau and femoral condyle and displaying prominent osteophyte formation and bone erosion. Continuity Clerk sections are submitted in two cassettes as follows: 1 - soft tissue, 2 - bone after decalcification. / LUIS ALFREDO:kendrick 12/21/2023 :5 [facility]: [id number], [id number]
[2023-12-21] MEDS: Lactated Ringers 1,000 ML 75 ML IV (09:01)
[2023-12-21] MEDS: Cefazolin 2 GM in 0.9% Normal Saline (100mL Bag) 100 ML IV (09:02)
[2023-12-21] MEDS: TXA 1000mg in NS100 100ml (IVPB at Incision) 660 MG IV (09:11)
[2023-12-21] MEDS: dexAMETHasone 10 MG/ML Vial IV (09:31)
--- NOTE | 2023-12-21 09:59 | OP.PCM_ITS ---
Report of Operation Date of Procedure: 12/21/23 Pre-Operative Diagnosis: Left knee primary osteoarthritis Post-Operative Diagnosis: Left knee primary osteoarthritis Surgery/Procedure Performed:: Left knee minimally invasive robotic assisted total knee replacement Description of Surgical Findings:: Stable knee with good patella tracking Surgeon: Aren Guzman cognos analyst: Michael Carcamo Type of Anesthesia: Spinal Anesthesiologist: Brandon Rosado Special Medications: 2 g Ancef, 1 g TXA at incision, 1 g TXA closure, 10 mg Decadron, joint cocktail (5 mg Duramorph, 30 mL of 0.5% Ropivicaine, 1000 units of epinephrine, 30 mg of Toradol) Specimen's removed: Bony cuts Estimated Blood Loss (mL): 50 Fluids Replaced: 1000 ml Description of Procedure: Implants used: 1. Colton size 3 triathlon cruciate retaining distal femoral press-fit component 2. Rajinder size 3 press-fit tritanium tibial baseplate 3. Colton X3 11 mm CS polyethylene 4. Rajinder X3 35 mm asymmetric patella Brief history operative indications: 83-year-old female with history of left knee osteoarthritis with radiographic findings with loss of joint space, osteophyte formation and subchondral sclerosis. Failed conservative measures as mentioned in the H&P. Discussion of total knee arthroplasty as well as risk and benefits were discussed the patient including but not limited to blood loss, DVTs, PEs, neurovascular damage, general risk of anesthesia including loss of life, and stiffness or instability were discussed with patient. Patient demonstrated understanding and was able to sign informed consent. Procedure: On the date of procedure patient's left lower extremity was marked in the preoperative area. The patient was then taken back to the operating room where the patient was placed on the table in the supine position. All bony prominences were identified a well-padded. Anesthesia assumed control of the C-spine and airway and remained controlled throughout the remainder of the procedure. A tourniquet was placed on the left upper thigh and the leg was prepped in a sterile fashion. The surgeon then scrubbed at this time .Upon reentering the room left lower extremity was draped in a standard orthopedic fashion. A timeout was then called and everyone agreed upon the side, the site, the procedure to be performed, patient's identity and antibiotics given. Esmarch bandage was used to exsanguinate the extremity and the tourniquet was placed up to 250 mmHg with the knee in flexion. A midline skin incision was made and sharp dissection was taken down through skin subcutaneous tissue and fat. The standard medial parapatellar incision was made and the patella was subluxed laterally. An Appropriate deep MCL release was done and the fat pad was resected. Our attention was then directed to the patella. The patella was everted and a flat resection was made. The knee was then flexed up in 2 femoral pins were placed inside the incision and 2 tibial pins were placed outside the incision in the medial tibia bicortically. Once this was completed the 2 checkpoints in the femur and tibia were placed. Knee was then flexed up and the bony landmarks were registered. Once this was completed knee was taken through range of motion and manually stressed allowing us to a plan for an appropriate tibial cut. The robotic arm was brought into the field sterilely and checkpoint and saw were registered. Based on the patient's deformity the tibial cut was made neutral to the tibial axis. At this time the tensioner was then placed in the joint and ligament tension was checked at 90 degrees and full extension. Based on the patient's ligamentous tension appropriate adjustments were made to the operative plan and ligament releases were done. Once we were happy with our operative plan with balanced flexion and extension gaps our attention was directed to the femur. The robot was brought into the field sterilely and registered. Posterior condylar cuts, anterior chamfer cuts and anterior cuts were appropriately made for a size 3 femur. When these were completed the saws were switched out in the distal femoral and posterior chamfer cuts were made. Protecting the soft tissue throughout this time. A size 3 tibial base plate was selected. the knee was flexed to 90 degrees and the soft tissues and posterior osteophytes were removed from the joint. 40 cc of the periarticular injection was injected into the posterior medial corner of the joint. The appropriate trials were then placed on the femur and tibia. A trial polyethylene was trialed to ensure proper balancing and stability of the knee. The appropriate tibial internal rotation was then marked with a bovie. Our attention was then directed to the patella. The lug holes were drilled and the patella trial was placed. Patellar tracking was checked and deemed appropriate. Once we were happy lug holes were drilled for the femur and trial components were removed. the tibia was subluxed and pinned into place and the keel was pun ched and drilled appropriately. Final components were verified and opened, and cement was mixed in a vacuum. [employer] Simplex cement was used. The wound was copiously irrigated with normal saline. When the cement was ready the components were impacted into place starting with the tibia, femur and finally cementing the patella. The trial poly component was placed and the knee was placed in full extension. All excess cement was removed in the process. Once the cement had cured the tracking, alignment and balance were verified and a size 11 mm CS polyethylene component was placed. Once the final components were placed a 3-minute dilute Betadine lavage was performed followed by an Irrisept lavage was performed and the wound was copiously irrigated with normal saline solution and the periarticular injection was given. The wound was closed in a layer addison fashion using #1 vicryl interrupted sutures for the arthrotomy, 2-0 interrupted Vicryl suture for the subcuticular layer and shade for final skin closure. A sterile compressive dressing was then placed. The patient was then awakened from anesthesia, transferred to the [place] and transferred to the PACU for recovery. Post op plan DVT ppx: ASA 81mg BID, thigh high compression stockings Follow up: in office in 2 weeks for wound check PT: to start POD #0 at hospital, outpatient PT should be arranged. My physician assistant to the dean was a vital part of this case. He was important in appropriate retraction during the case, and protection of soft tissues during bony cuts. His intimate knowledge of the case and my steps aided in safe and expedient completion of the procedure as well as appropriate position of the leg during the case. He was also vital in assisting with closure under my direct supervision. Due to the complexity of this case robotic arm was used to assist in the surgery to improve accuracy and clinical outcomes. Complications No intraoperative complications Admit VTE Documentation VTE Present on Admission: No VTE Mechan Device Prophylaxis: SCD's and Thigh High TESFAYE Hose VTE Pharm Prophylaxis ordered?: Yes
[2023-12-21] MEDS: JPS (Morphine 10mg/ml) OPERA.SITE (10:00)
[2023-12-21] MEDS: TXA 1000mg in NS100 100ml (IVPB at Closure) 660 MG IV (10:01)
--- NOTE | 2023-12-21 10:52 | RAD_ITS ---
STUDY: X-RAY - LEFT KNEE REASON FOR EXAM: Female, 83 years old. Post op -- AP and Lateral xray of operative knee in PACU TECHNIQUE: 2 view(s) of the knee. COMPARISON: None. FINDINGS: Normal visualized distal femur. Normal visualized proximal tibia and fibula. Normal proximal tibiofibular articulation. The patient is status post total knee replacement. There is good alignment. Postoperative soft tissue changes. RAD/Knee 1 or 2 Views IMPRESSION: Status post total knee replacement. There is good alignment. Postoperative soft tissue changes. Electronically Signed: Fady Ryder MD at 11:08 EST ,
[2023-12-21] MEDS: Cholecalciferol (VIT D3) 25 MCG TABLET (1,000 UNITS) 50 MCG PO (13:00)
[2023-12-21] MEDS: Famotidine 20 MG Tablet PO (13:00)
[2023-12-21] MEDS: Ensure Surgery 237 ML LIQUID PO (16:36)
[2023-12-21] MEDS: Aspirin 81 MG TAB.CHEW PO (16:36)
[2023-12-21] MEDS: Cefazolin 1 GM/50 ML BAG IV (16:36)
[2023-12-21] MEDS: Senna/Docusate Sodium 1 Tablet 2 TABLET PO (21:24)
[2023-12-21] MEDS: Atorvastatin Calcium 10 MG Tablet PO (21:24)
[2023-12-22 01:09] VITALS: BP 155/68; PULSE 71; RESP 18; TEMP 36.6; O2SAT 97
[2023-12-22] MEDS: Cefazolin 1 GM/50 ML BAG IV (01:17)
[2023-12-22] MEDS: Acetaminophen 500 MG Tablet 1000 MG PO ×3 (05:52→21:38)
[2023-12-22 07:47] LABS: Hematocrit 33.2 % (37-47); Hemoglobin 10.6 g/dL (12.0-15.0); Mean Corp Hgb Conc 31.9 g/dL (32-36); Mean Corpuscular Hgb 28.6 pg (27.0-32.0); Mean Corpuscular Volume 89.5 fL (81-99); Mean Platelet Vol. 11.1 fl (6.2-12.0); Platelet Count 190 K/mm3 (150-450); RBC Distribution Width CV 14.3 % (11.6-14.6); RBC Distribution Width SD 45.9 fl (35.1-43.9); Red Blood Count 3.71 M/mm3 (4.2-5.4); White Blood Count 14.2 K/mm3 (4.4-11.0)
[2023-12-22] MEDS: Famotidine 20 MG Tablet PO (08:08)
[2023-12-22] MEDS: Senna/Docusate Sodium 1 Tablet 2 TABLET PO ×2 (08:08→21:38)
[2023-12-22] MEDS: Cholecalciferol (VIT D3) 25 MCG TABLET (1,000 UNITS) 50 MCG PO (08:08)
[2023-12-22 08:09] LABS: Anion Gap 8 (5-15); BUN 16 mg/dL (7-18); BUN/Creat Ratio 21.9 RATIO (10-20); Calcium,Total 9.6 mg/dL (8.5-10.1); Chloride 110 mmol/L (98-107); Creatinine, Serum 0.73 mg/dL (0.55-1.02); EST Glomerular Filtration Rate 81 mL/min (>60); Est Glom Filt Rate - Afr Amer 98 mL/min (>60); Estimated Creatinine Clearance 58.04 ml/min; Glucose 118 mg/dL (74-106); Potassium 4.3 mmol/L (3.5-5.1); Sodium Level 141 mmol/L (136-145)
[2023-12-22] MEDS: Lisinopril 10 MG Tablet PO (08:09)
[2023-12-22] MEDS: Aspirin 81 MG TAB.CHEW PO ×2 (08:09→17:09)
[2023-12-22] MEDS: Ensure Surgery 237 ML LIQUID PO (08:10)
[2023-12-22 08:20] VITALS: BP 151/86; PULSE 65; RESP 18; TEMP 36.6; O2SAT 97
--- NOTE | 2023-12-22 09:05 | CASEMGMT ---
Discharge Planning A list of?SNF providers including quality and resource use data and consistent with the patient's preferred geographic region, medical needs, and insurance network was created in [employer] Guide.? This list was provided to the SW. Shanna Mccormick Discharge Planning Asst.
--- NOTE | 2023-12-22 09:12 | CASEMGMT ---
CHAIM LONDON Assessment: Face to Face with pt for initial transition planning/care coordination assessment. CHAIM LONDON introduced self and role at [facility], pt voices understanding and consents to assessment. Pt is A&O x4 and answers all questions appropriately at this time. Pt sitting up in bed on RA in no distress. PA in during assessment. Care providers, pharmacy, and demographics verified/updated. Admitting Dx:L total knee arthroplasty PCP:Matthieu Specialists:rossi Guzman Pharmacy:[facility] Insurance:[facility] Prescription Benefit: yes LNOK:Camille Weaver dtr; Flower Grijalva dtr Living Arrangements: Pt lives alone in a single story home with 2 steps to enter with a grab bar. Pt reports typically she is I in ADL's, but has no assistance at home post surgery. Transportation: Pt drives self and denies concerns with transportation. Friends are available to transport if needed. DME:grab bars in the shower and toilet, shower chair but doesn't fit in shower, cane, FWW, rollator, transport w/c HHC/SNF:Denies hx of Pt states she would like to go to [facility] TCU. Provided pt with a list of SNF options created by dc reference assistant. Pt aware to review list for two additional preferences pending [facility]. Updated SW. Pt states no further concerns/needs. CM to follow. Advised pt to ask CM if any further question/concerns/needs arise, voices understanding. Pt Goal:[facility] TCU Plan:SNF
--- NOTE | 2023-12-22 09:35 | CASEMGMT ---
Addendum entered by Aubrie Bentley 12/22/23 14:43: Social Work TCU is able to accept pt and precert has been started. SW met with pt and updated. Pt is appreciative of information and plans to call her daughter and update her. Plan: TCU, pending precert [facility] Patel Original Note: Social Work SW received referral from [facility] that pt is requesting short term placement at TCU. Referral made to TCU, awaiting determination of acceptance. Precert will be needed prior to pt's discharge. SW met with pt and her daughter Flower and updated that referral has been made to TCU and determination is pending. SW encouraged pt and dgt to review SNF list for additional choices if TCU is not able to accept. RUDY will continue to follow for dc planning. Plan: TCU, pending acceptance and precert [facility] Patel
--- NOTE | 2023-12-22 10:08 | PN.HOSP_ITS ---
Subjective Subjective No issues, pain is controlled. Slight leukocytosis likely reactive. Renal function is stable Objective Data Objective Data Vital Signs: Vital Signs Temp Pulse Resp BP Pulse Ox O2 Del Method O2 Flow Rate 98 F 65 18 151/86 H 97 Room Air 2 12/22/23 08:20 12/22/23 08:20 12/22/23 08:20 12/22/23 08:20 12/22/23 08:20 12/22/23 08:20 12/21/23 12:46 Oxygen Flow Rate (L/min) 2 Oxygen Delivery Method Room Air Weight: 191 lb 12.835 oz Body Mass Index (BMI) 31.8 Intake & Output: Intake and Output for Last 24 Hours 12/21/23 12/22/23 12/23/23 03:59 03:59 03:59 Intake Total 3782 / 3782 Balance 3782 / 3782 Lab / Micro Data 12/22/23 06:34 12/22/23 06:34 Labs: Laboratory Results - last 24 hr 12/22/23 06:34: WBC 14.2 H, RBC 3.71 L, Hgb 10.6 L, Hct 33.2 L, MCV 89.5, MCH 28.6, MCHC 31.9 L, RDW Std Deviation 45.9 H, RDW Coeff of Rachel 14.3, Plt Count 190, MPV 11.1, Sodium 141, Potassium 4.3, Chloride 110 H, Carbon Dioxide 23.0, Anion Gap 8, BUN 16, Creatinine 0.73, Estim Creat Clear Calc 58.04, Est GFR (MDRD) Af Amer 98, Est GFR (MDRD) Non-Af 81, BUN/Creatinine Ratio 21.9 H, Glucose 118 H, Calcium 9.6 Micro: Microbiology 12/08/23 14:57 Swab (Method) Nasal Screen MRSA/MSSA - Final Radiography Diagnostic Testing: Radiology Impression Knee X-Ray 12/21/23 10:52 IMPRESSION: Status post total knee replacement. There is good alignment. Postoperative soft tissue changes. Electronically Signed: Fady Ryder MD at 11:08 EST , Physical Exam Narrative General: Alert, Oriented x3, Cooperative, No apparent distress HEENT: Atraumatic, PERRLA, EOMI, Normocephalic Oral: Moist Mucosa Neck: Supple, No JVD Lungs: Diminished, Normal air movement, No rhonchi, No wheeze, No rales Cardiovascular: Regular rate, Regular Rhythm, Normal S1, Normal S2, No murmurs Abdomen: Soft, Non Tender, Non-Distended, No Hepato-splenomegaly Extremities: No edema, Capillary Refill Less than 3 Seconds Skin: Dressing CDI Musculoskeletal: Surgical site tenderness Neurological: No focal neurological deficits, Motor Exam 5/5 strength thr oughout, Sensory exam intact to light touch and pain Psych/Mental Status: Normal Affect, Appropriate Assessment & Plan Assessment/Plan (1) Status post total left knee replacement: PLAN: Plan 1. Status post left total knee replacement for osteoarthritis ? PT/OT ? Pain management from primary ? Medically stable for discharge ? Continue with her home medications 2. HTN/HLD ? Blood pressures are stable ? Renal function is stable ? Resume her home blood pressure medications and her cholesterol medications Will follow peripherally Charges/Coding Visit Charges Inpatient E&M: 34260 Subs Hosp L2
--- NOTE | 2023-12-22 10:44 | PN.ORTHO_ITS ---
Subjective Subjective The patient was sitting in bed upon examination. Patient denies any chest pain, shortness of breath, dizziness, lightheadedness, nausea or vomiting, or calf pain. Pain is controlled on medications. No adverse overnight events. Patient lives home alone and will have no assistance postoperatively upon discharge. She had a risk assessment and prediction tool score of 2/12. She is working with physical therapy today. Patient did start on anemia protocol preoperatively due to anemia. She has been taken ferrous sulfate and folic acid. Nursing states she did have to switch out the distal pin site dressing d ue to drainage. Objective Data Objective Data Vital Signs: Vital Signs Temp Pulse Resp BP Pulse Ox O2 Del Method O2 Flow Rate 98 F 65 18 151/86 H 97 Room Air 2 12/22/23 08:20 12/22/23 08:20 12/22/23 08:20 12/22/23 08:20 12/22/23 08:20 12/22/23 08:20 12/21/23 12:46 Oxygen Flow Rate (L/min) 2 Oxygen Delivery Method Room Air Weight: 87 kg Body Mass Index (BMI) 31.8 Intake & Output: Intake and Output for Last 24 Hours 12/20/23 12/21/23 12/22/23 23:59 23:59 23:59 Intake Total 3732 / 3732 50 / 50 Balance 3732 / 3732 50 / 50 Lab / Micro Data 12/22/23 06:34 12/22/23 06:34 Labs: Laboratory Results - last 24 hr 12/22/23 06:34: WBC 14.2 H, RBC 3.71 L, Hgb 10.6 L, Hct 33.2 L, MCV 89.5, MCH 28.6, MCHC 31.9 L, RDW Std Deviation 45.9 H, RDW Coeff of Rachel 14.3, Plt Count 190, MPV 11.1, Sodium 141, Potassium 4.3, Chloride 110 H, Carbon Dioxide 23.0, Anion Gap 8, BUN 16, Creatinine 0.73, Estim Creat Clear Calc 58.04, Est GFR (MD CERVANTES) Af Amer 98, Est GFR (MDRD) Non-Af 81, BUN/Creatinine Ratio 21.9 H, Glucose 118 H, Calcium 9.6 Micro: Microbiology 12/08/23 14:57 Swab (Method) Nasal Screen MRSA/MSSA - Final Radiography Diagnostic Testing: Radiology Impression Knee X-Ray 12/21/23 10:52 IMPRESSION: Status post total knee replacement. There is good alignment. Postoperative soft tissue changes. Electronically Signed: Fady Ryder MD at 11:08 EST , Physical Exam Narrative Vital signs stable and afebrile. SCDs and TESFAYE hose are in place bilaterally Patient is able to plantarflex and dorsiflex actively. Sensation is intact to light touch to saphenous, sural, superficial and deep p eroneal, and tibial distribution. Dressings are clean dry and intact. Negative Homans bilaterally, negative signs and symptoms of DVT. Assessment & Plan Assessment/Plan (1) Status post total left knee replacement: PLAN: 1. S/P left total knee arthroplasty POD #1 2. Continue Pain Medications: Tylenol, meloxicam, oxycodone. Do not take any other nonsteroidal anti-inflammatories while using meloxicam/Mobic. 3. DVT Prophylaxis: Take 81 mg aspirin twice daily for 4 weeks postoperatively for DVT prophylaxis. Patient denies past history of DVT or pulmonary embolism 4. PT/OT: Weightbearing as tolerated with walker. Appreciate recommendations from physical therapy for discharge planning 5. H & H: 10.6/33.2, asymptomatic. Since patient's last surgery in the fall 2022 she has been dealing with some anemia. She has been following Aren Thomas protocol for anemia in which she is using ferrous sulfate and folic acid. Preoperative hemoglobin/hematocrit was 11.3/35.8 on December 08, 2023. We will continue to monitor with repeat lab work tomorrow. Patient is currently asymptomatic on clinical exam. 6. Continue postoperative medical management per medicine 7. Reactive leukocytosis: 14.2, Afebrile. Patient did receive Decadron intraoperatively. No clinical signs of infection. 8. Encouraged Incentive Spirometry 9. Disposition: Case management is currently involved as there is concern with patient going home for safety reasons. She had a risk assessment and prediction tool score of 2/12. She also lives home alone. We appreciate recommendations from physical therapy for discharge planning. We will continue to monitor patient's anemia with repeat lab work tomorrow. She will continue with above medications. I have reviewed the [place] Automated Rx Reporting System (OARRS) report for this patient for refill pattern and other prescriber involvement as part of the appropriate surveillance for the provision of acute and chronic controlled medications. The report was requested and reviewed on the date of this entry and was considered in the prescribing process. This dictation was created using voice recognition software. Phonetic and/or grammatical errors may exist.
[2023-12-22] MEDS: oxyCODONE 5 MG Tablet PO ×2 (13:28→21:36)
[2023-12-22 14:34] VITALS: BP 145/72; PULSE 71; RESP 16; TEMP 36.8; O2SAT 95
[2023-12-22] MEDS: 0.9% Saline Lock 10 ML Syringe IV ×2 (17:09→21:39)
[2023-12-22] MEDS: Ketorolac 15 MG/ML Vial IV (17:09)
[2023-12-22 21:31] VITALS: BP 177/67; PULSE 70; RESP 18; TEMP 36.5; O2SAT 97
[2023-12-22] MEDS: Atorvastatin Calcium 10 MG Tablet PO (21:37)
[2023-12-22] MEDS: MELATONIN 3 MG TABLET PO (21:37)
[2023-12-23] VITALS (7 sets, daily range): BP systolic 149–190; BP diastolic 55–73; PULSE 63–72; RESP 16–18; TEMP 36.5–37.1; O2SAT 94–99
[2023-12-23] MEDS: oxyCODONE 5 MG Tablet PO ×2 (03:54→10:40)
[2023-12-23] MEDS: Acetaminophen 500 MG Tablet 1000 MG PO (04:54)
[2023-12-23] MEDS: hydrALAZINE 20 MG/ML Vial 10 MG IV (04:55)
[2023-12-23] MEDS: 0.9% Saline Lock 10 ML Syringe IV (05:01)
[2023-12-23 07:07] LABS: Hematocrit 31.4 % (37-47); Hemoglobin 10.2 g/dL (12.0-15.0); Mean Corp Hgb Conc 32.5 g/dL (32-36); Mean Corpuscular Hgb 28.9 pg (27.0-32.0); Mean Platelet Vol. 10.3 fl (6.2-12.0); Platelet Count 142 K/mm3 (150-450); RBC Distribution Width CV 14.5 % (11.6-14.6); RBC Distribution Width SD 46.8 fl (35.1-43.9); Red Blood Count 3.53 M/mm3 (4.2-5.4); White Blood Count 8.5 K/mm3 (4.4-11.0)
[2023-12-23] MEDS: Senna/Docusate Sodium 1 Tablet 2 TABLET PO (09:33)
[2023-12-23] MEDS: Meloxicam 7.5 MG Tablet PO (09:33)
[2023-12-23] MEDS: Lisinopril 10 MG Tablet PO (09:33)
[2023-12-23] MEDS: Famotidine 20 MG Tablet PO (09:33)
[2023-12-23] MEDS: Aspirin 81 MG TAB.CHEW PO (09:33)
[2023-12-23] MEDS: Cholecalciferol (VIT D3) 25 MCG TABLET (1,000 UNITS) 50 MCG PO (09:33)
--- NOTE | 2023-12-23 10:30 | PCM.DC.SUM ---
Providers Date of Admission: 12/21/23 Primary Care Physician: Dr. Shant Sommers MD Consultations 12/21/23 07:04 Consult: Hospitalist Routine Consulting Provider: Stefano Avina Reason for Consult: post op med management EMERGENT Consult: No MD Notified: Yes Date Notified: 12/21/23 Time Notified: 12:00 Method of Notification: Text Reason For Visit: LEFT TOTAL KNEE ARTHROPLASTY WITH R Diagnosis Discharge Diagnosis (1) Status post total left knee replacement: Status: Acute Code(s): Z96.652 - Presence of left artificial knee joint Medications at Discharge Home Medications lovastatin 40 mg tablet 40 mg PO DAILY 04/29/20 cholecalciferol (vitamin D3) 50 mcg (2,000 unit) capsule 50 mcg PO DAILY 06/23/22 lisinopril 10 mg tablet 10 mg PO DAILY 06/23/22 acetaminophen 500 mg tablet 1,000 mg (2 x 500 mg) PO Q8 #0 tabs 12/23/23 aspirin 81 mg chewable tablet 81 mg PO BIDCM #0 tabs 12/23/23 famotidine 20 mg tablet 20 mg PO DAILY #0 tabs 12/23/23 melatonin 3 mg tablet 3 mg PO QHS #0 tabs 12/23/23 meloxicam 7.5 mg tablet 7.5 mg PO BID #0 tabs 12/23/23 nut.tx.comp. immune systm,reg 0.08 gram-1.4 kcal/mL oral liquid (Ensure Surgery) 237 ml PO TIDCM #0 mL 12/23/23 oxycodone 5 mg tablet 5 - 10 mg (1 - 2 x 5 mg) PO Q4H PRN PRN Pain Score 4-10 5 days #42 tabs 12/23/23 sennosides 8.6 mg-docusate sodium 50 mg tablet (Stool Softener-Stimulant Laxative) 2 tab PO BID 5 days #20 tabs 12/23/23 Hospital Course Operations total knee replacement (Left) Summary of Care Provided Hospital Course: Patient was brought to the hospital and admitted on December 21 after left total knee replacement. She did well and had uneventful postoperative course however based on patient's age and limited mobility she demonstrated some concerns with physical therapy and discharged to transitional care unit was arranged for the patient. After facility was able to tap patient pre-CERT was obtained and patient was ready for discharge on postoperative day 2. Physical Exam Narrative Left lower extremity: Dressing is clean dry and intact Sensations intact to light touch saphenous, sural, superficial peroneal, deep peroneal, and tibial distributions Motors intact EHL, DF, PF calves are soft and supple Const alert, oriented x3 and no apparent distress Weight / BMI Weight Weight: 191 lb 12.835 oz Body Mass Index (BMI) 31.8 ABG / Lab / Microbiology Data 12/23/23 06:20 12/22/23 06:34 Laboratory: Laboratory Results - last 24 hr 12/23/23 06:20: WBC 8.5, RBC 3.53 L, Hgb 10.2 L, Hct 31.4 L, MCV 89.0, MCH 28.9, MCHC 32.5, RDW Std Deviation 46.8 H, RDW Coeff of Rachel 14.5, Plt Count 142 L, MPV 10.3 Microbiology: Microbiology 12/08/23 14:57 Swab (Method) Nasal Screen MRSA/MSSA - Final D/C Instructions Discharge Diet: No restrictions Discharge Activity: May Not Drive May shower in (days): 2 Ice area for (Minutes): 20 (every hour while awake.) Weight Bearing Status: Weight bearing as tolerated Keep extremity elevated above heart level: Operative Extremity Additional Activity Instructions: Wear elastic stockings for 2 weeks after your surgery. Call your doctor if your incision/area has: Continuous Slow Oozing, Sudden Increased Bleeding, Increased Pain/ Swelling, Increased Redness and Foul Smelling Discharge Call your doctor if you observe: Fever of 101 or Higher, Coldness, Increased Pain, Numbness or Tingling, Change in Color, Calf discomfort and Uncontrolled pain Change Dressing in: 1 day (and daily as needed.) Meaningful Use Info Meaningful Use Diagnoses (Choose all that apply): None applicable Discharge Plan Admission Admit Date/Time: 12/21/23 07:03 Primary Reason for Your Visit: Left knee osteoarthritis with total knee replacement Attending Provider: Aren Guzman Primary Care Provider: Shant Sommers Consulting Providers: Stefano Avina Discharge Orders/Prescriptions Prescriptions: New melatonin 3 mg Tablet 3 mg PO QHS Qty: 0 0RF acetaminophen 500 mg Tablet 1,000 mg PO Q8 Qty: 0 0RF meloxicam 7.5 mg Tablet 7.5 mg PO BID Qty: 0 0RF famotidine 20 mg Tablet 20 mg PO DAILY Qty: 0 0RF aspirin 81 mg Tablet,Chewable 81 mg PO BIDCM Qty: 0 0RF oxycodone 5 mg Tablet 5 - 10 mg PO Q4H PRN PRN (Reason: Pain Score 4-10) 5 Days Qty: 42 0RF Ensure Surgery 0.08-1.4 gram-kcal/mL Liquid 237 ml PO TIDCM Qty: 0 0RF sennosides-docusate sodium [Stool Softener-Stimulant Laxat] 8.6-50 mg Tablet 2 tab PO BID 5 Days Qty: 20 0RF Continued lisinopril 10 mg tablet 10 mg PO DAILY cholecalciferol (vitamin D3) 50 mcg (2,000 unit) capsule 50 mcg PO DAILY lovastatin 40 MG tablet 40 mg PO DAILY Discontinued acetaminophen [Tylenol 8 Hour] 650 mg tablet extended release 650 mg PO Q12H Referrals / Follow Up: Shant Sommers MD [Primary Care Provider] - Disposition Disposition (needs filled in before D/C Order can be placed): Assisted Facility
--- NOTE | 2023-12-23 10:40 | PCM.PN.ORT ---
Subjective Subjective Patient doing well. Stable. Daughter is at bedside and does feel that she was slightly confused yesterday. Mental status is improved today. Medically stable ready for discharge. Rehab was been obtained for transitional care unit. Objective Data Objective Data Vital Signs: Vital Signs Temp Pulse Resp BP Pulse Ox O2 Del Method O2 Flow Rate 97.9 F 69 16 152/73 H 99 Room Air 2 12/23/23 09:30 12/23/23 09:30 12/23/23 09:30 12/23/23 09:30 12/23/23 09:30 12/23/23 09:30 12/21/23 12:46 Oxygen Flow Rate (L/min) 2 Oxygen Delivery Method Room Air Weight: 191 lb 12.835 oz Body Mass Index (BMI) 31.8 Intake & Output: Intake and Output for Last 24 Hours 12/21/23 12/22/23 12/23/23 23:59 23:59 23:59 Intake Total 3732 / 3732 800 / 800 Balance 3732 / 3732 800 / 800 Lab / Micro Data Attestation: I reviewed the patient's lab results. 12/23/23 06:20 12/22/23 06:34 Labs: Laboratory Results - last 24 hr 12/23/23 06:20: WBC 8.5, RBC 3.53 L, Hgb 10.2 L, Hct 31.4 L, MCV 89.0, MCH 28.9, MCHC 32.5, RDW Std Deviation 46.8 H, RDW Coeff of Rachel 14.5, Plt Count 142 L, MPV 10.3 Micro: Microbiology 12/08/23 14:57 Swab (Method) Nasal Screen MRSA/MSSA - Final Physical Exam Narrative Left lower extremity: Dressing is clean dry and intact Sensations intact to light touch saphenous, sural, superficial peroneal, deep peroneal, and tibial distributions Motors intact EHL, DF, PF calves are soft and supple Const alert, oriented x3 and no apparent distress Assessment & Plan Assessment/Plan (1) Status post total left knee replacement: PLAN: 1. S/P left total knee arthroplasty POD #2 2. Continue Pain Medications: Tylenol, meloxicam, oxycodone. Do not take any other nonsteroidal anti-inflammatories while using meloxicam/Mobic. 3. DVT Prophylaxis: Take 81 mg aspirin twice daily for 4 weeks postoperatively for DVT prophylaxis. Patient denies past history of DVT or pulmonary embolism 4. PT/OT: Weightbearing as tolerated with walker. 5. H & H: 10.2/31.4, asymptomatic, stable this morning. Since patient's last surgery in the fall 2022 she has been dealing with some anemia. She has been following Aren Guzman protocol for anemia in which she is using ferrous sulfate and folic acid. Preoperative hemoglobin/hematocrit was 11.3/35.8 on December 08, 2023. We will continue to monitor with repeat lab work tomorrow. Patient is currently asymptomatic on clinical exam. 6. Continue postoperative medical management per medicine 7. Reactive leukocytosis: Resolved today. 8. Encouraged Incentive Spirometry 9. Patient's mental status appears to be improved today. Discussed with the daughter nursing care will be vital in helping manage any further confusion she has during the day at the transitional care unit. Likely related to postanesthesia effects as well as postsurgical effects associated with age. 10. Disposition: Case management is currently involved as there is concern with patient going home for safety reasons. She had a risk assessment and prediction tool score of 2/12. She also lives home alone. Patient has excepting facility at [facility]. Pre-CERT is been obtained. Plan is for discharge today. We did go over discharge instructions including DVT prophylaxis medications, stool softeners and pain management. I have reviewed the [place] Automated Rx Reporting System (OARRS) report for this patient for refill pattern and other prescriber involvement as part of the appropriate surveillance for the provision of acute and chronic controlled medications. The report was requested and reviewed on the date of this entry and was considered in the prescribing process. This dictation was created using voice recognition software. Phonetic and/or grammatical errors may exist.
--- NOTE | 2023-12-23 10:44 | TREXTCAR_ITS ---
Diet Diet Order/Speech Therapy: 12/21/23 16:13 Diet: Regular - General Is pt able to select menu?: Yes Routine Orders/Code Status O2 Frequency: PRN Wound(s) LEFT KNEE: Wound Type: Surgical Incision L ureña: Wound Type: Puncture Problem/Diagnosis (1) Status post total left knee replacement: Status: Acute Code(s): Z96.652 - Presence of left artificial knee joint Plan: 1. S/P left total knee arthroplasty POD #2 2. Continue Pain Medications: Tylenol, meloxicam, oxycodone. Do not take any other nonsteroidal anti-inflammatories while using meloxicam/Mobic. 3. DVT Prophylaxis: Take 81 mg aspirin twice daily for 4 weeks postoperatively for DVT prophylaxis. Patient denies past history of DVT or pulmonary embolism 4. PT/OT: Weightbearing as tolerated with walker. 5. H & H: 10.2/31.4, asymptomatic, stable this morning. Since patient's last surgery in the fall 2022 she has been dealing with some anemia. She has been following Aren Guzman protocol for anemia in which she is using ferrous sulfate and folic acid. Preoperative hemoglobin/hematocrit was 11.3/35.8 on December 08, 2023. We will continue to monitor with repeat lab work tomorrow. Patient is currently asymptomatic on clinical exam. 6. Continue postoperative medical management per medicine 7. Reactive leukocytosis: Resolved today. 8. Encouraged Incentive Spirometry 9. Patient's mental status appears to be improved today. Discussed with the daughter nursing care will be vital in helping manage any further confusion she has during the day at the transitional care unit. Likely related to posta nesthesia effects as well as postsurgical effects associated with age. 10. Disposition: Case management is currently involved as there is concern with patient going home for safety reasons. She had a risk assessment and prediction tool score of 2/12. She also lives home alone. Patient has excepting facility at [facility]. Pre-CERT is been obtained. Plan is for discharge today. We did go over discharge instructions including DVT prophylaxis medications, stool softeners and pain management. I have reviewed the [place] Automated Rx Reporting System (OARRS) report for this patient for refill pattern and other prescriber involvement as part of the appropriate surveillance for the provision of acute and chronic controlled medications. The report was requested and reviewed on the date of this entry and was considered in the prescribing process. This dictation was created using voice recognition software. Phonetic and/or grammatical errors may exist. Allergies/Procedures Done in Hospital Allergies No Known Allergies Allergy (Verified 12/21/23 06:41) Type of Care/Length of Stay Estimated LOS: Convalescent Care Less Than 30 days Type of Care Needed: Skilled Rehab Potential: Good Prognosis: Good Additional Orders/Day of Discharge Day of Discharge: 12/23/23 Follow Up Care Please Follow Up With: Michael Carcamo PA-C When: 01-05-2024 3pm Discharge Plan Admission Admit Date/Time: 12/21/23 07:03 Primary Reason for Your Visit: Left knee osteoarthritis with total knee replacement Attending Provider: Aren uGzman Primary Care Provider: Shant Sommers Consulting Providers: Stefano Avina Discharge Orders/Prescriptions Prescriptions: New melatonin 3 mg Tablet 3 mg PO QHS Qty: 0 0RF acetaminophen 500 mg Tablet 1,000 mg PO Q8 Qty: 0 0RF meloxicam 7.5 mg Tablet 7.5 mg PO BID Qty: 0 0RF famotidine 20 mg Tablet 20 mg PO DAILY Qty: 0 0RF aspirin 81 mg Tablet,Chewable 81 mg PO BIDCM Qty: 0 0RF oxycodone 5 mg Tablet 5 - 10 mg PO Q4H PRN PRN (Reason: Pain Score 4-10) 5 Days Qty: 42 0RF Ensure Surgery 0.08-1.4 gram-kcal/mL Liquid 237 ml PO TIDCM Qty: 0 0RF sennosides-docusate sodium [Stool Softener-Stimulant Laxat] 8.6-50 mg Tablet 2 tab PO BID 5 Days Qty: 20 0RF Continued lisinopril 10 mg tablet 10 mg PO DAILY cholecalciferol (vitamin D3) 50 mcg (2,000 unit) capsule 50 mcg PO DAILY lovastatin 40 MG tablet 40 mg PO DAILY Discontinued acetaminophen [Tylenol 8 Hour] 650 mg tablet extended release 650 mg PO Q12H Referrals / Follow Up: Shant Sommers MD [Primary Care Provider] - Disposition Disposition (needs filled in before D/C Order can be placed): Long-Term Facility
--- NOTE | 2023-12-23 10:52 | PHA.DC.MR.R ---
Pharmacy [facility] Reconciliation Pharmacy Service has performed discharge medication reconciliation for this patient. The patient's discharge medication list was reviewed for discrepancies and discrepancies were resolved. Medications at Discharge Home Medications lovastatin 40 mg tablet 40 mg PO DAILY 04/29/20 cholecalciferol (vitamin D3) 50 mcg (2,000 unit) capsule 50 mcg PO DAILY 06/23/22 lisinopril 10 mg tablet 10 mg PO DAILY 06/23/22 acetaminophen 500 mg tablet 1,000 mg (2 x 500 mg) PO Q8 #0 tabs 12/23/23 aspirin 81 mg chewable tablet 81 mg PO BIDCM #0 tabs 12/23/23 famotidine 20 mg tablet 20 mg PO DAILY #0 tabs 12/23/23 melatonin 3 mg tablet 3 mg PO QHS #0 tabs 12/23/23 meloxicam 7.5 mg tablet 7.5 mg PO BID #0 tabs 12/23/23 nut.tx.comp. immune systm,reg 0.08 gram-1.4 kcal/mL oral liquid (Ensure Surgery) 237 ml PO TIDCM #0 mL 12/23/23 oxycodone 5 mg tablet 5 - 10 mg (1 - 2 x 5 mg) PO Q4H PRN PRN Pain Score 4-10 5 days #42 tabs 12/23/23 sennosides 8.6 mg-docusate sodium 50 mg tablet (Stool Softener-Stimulant Laxative) 2 tab PO BID 5 days #20 tabs 12/23/23
--- NOTE | 2023-12-23 11:50 | CASEMGMT ---
Social Work Precert has been obtained for pt to go to TCU. Physician updated and pt is ready for dc today. SW went to pt's room. Pt in restroom, dgt in room. SW updated dgt that TCU has accepted, precert obtained and dc planned for today. Pt dgt understanding and agreeable and will notify pt. DC orders faxed to TCU and Linda in TCU notified of dc. Nursing updated. Disposition: TCU, skilled level of care ANCELMO Patel
== END 2023-12-23 12:24 | DRG 470 ==
LOC: SDC 10:54 → MS3 12-22 09:03
PROVIDERS: Anesthesiology; Admitting Provider Specialist; PCP Family Medicine; Referring Provider Specialist; Visit Provider Specialist
PROC: 0SRD0JZ Replacement of Left Knee Joint with Synthetic Substitute, Open Approach (ICD-10-PCS; CPT 27447; principal; 2023-12-21 08:15)
DX: M17.12 Unilateral primary osteoarthritis, left knee (principal); D64.9 Anemia, unspecified; I10 Essential (primary) hypertension; E78.00 Pure hypercholesterolemia, unspecified; E66.9 Obesity, unspecified; M85.80 Other specified disorders of bone density and structure, unspecified site; Z68.33 Body mass index [BMI] 33.0-33.9, adult; Z79.82 Long term (current) use of aspirin; Z87.891 Personal history of nicotine dependence; Z96.653 Presence of artificial knee joint, bilateral; Z79.899 Other long term (current) drug therapy
CPT/HCPCS: 27447; S2900; 01402; 64447; 36415; 73560; 80048; 82040; 82962; 83735; 85025; 85027; 87081; 88305; 88311; 93005; 94668; 96365; 96366; 96375; 97110; 97116; 97162; 97166; 97530; 97535; 99221; 99252; C1776; J7120; A4216; G0378; G0463; J2310; J3475

== ENCOUNTER 2023-12-23 12:41 | Inpatient (IN) | payer MEDICARE, SELFPAY ==
[2023-12-23 13:05] VITALS: BMI 31.7
--- OUTSIDE RECORDS SUMMARY | 2023-12-23 13:11 | XMS RPT_ITS | CCD ---
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 Name Role Phone PADMAJA ABDI, ALEX Primary Care Physician ZAN ABDI, DR AREN Clemons Attending Sathya Rubio MD, ALEX [facility] Fredis ZULUAGA MD, DR AREN Clemons Attending Sathya Rubio MD, ALEX Primary [facility] Fredis ZULUAGA MD, DR AREN Clemons Attending Sathya Rubio MD, ALEX Primary [facility] Fredis GIANG MD, ALEX [facility] Fredis ZULUAGA MD, DR AREN Clemons Admitting Sathya Pedersen MD, DR AREN Clemons Referring Sathya Campbell, RICHARD [employer] Chula PAYAN, RICHARD Fierro Attending Chula ZULUAGA MD, DR AREN Clemons Attending Sathya Rubio MD, ALEX [facility] Fredis ZULUAGA MD, DR AREN Clemons Attending Sathya Rubio MD, [facility] Unavailable Medications Current Medications Medication Drug Class(es) [...] temperature 97.88 [degF] DR AREN ZULUAGA MD [facility] 09-21-2023 14:24-0500 Diastolic Blood Pressure Non-Invasive 56 mm[Hg] DR AREN ZULUAGA MD [facility] 09-21-2023 14:24-0500 Heart rate 66 /min DR AREN ZULUAGA MD [facility] 09-21-2023 14:24-0500 Respiratory rate 20 /min DR AREN ZULUAGA MD [facility] 09-21-2023 14:24-0500 Systolic Blood Pressure Non-Invasive 157 mm[Hg] DR AREN ZULUAGA MD [facility] 09-21-2023 11:05-0500 Diastolic Blood Pressure Non-Invasive 67 mm[Hg] DR AREN ZULUAGA MD [facility] 09-21-2023 11:05-0500 Systolic Blood Pressure Non-Invasive 158 mm[Hg] DR AREN ZULUAGA MD [facility] 09-21-2023 10:31-0500 Body temperature 97.88 [degF] DR AREN ZULUAGA MD [facility] 09-21-2023 10:31-0500 Diastolic Blood Pressure Non-Invasive 100 mm[Hg] DR AREN ZULUAGA MD [facility] 09-21-2023 10:31-0500 Heart rate 75 /min DR AREN ZULUAGA MD [facility] 09-21-2023 10:31-0500 Respiratory rate 20 /min DR AREN ZULUAGA MD [facility] 09-21-2023 10:31-0500 Systolic Blood Pressure Non-Invasive 159 mm[Hg] DR AREN ZULUAGA MD [facility] 09-21-2023 07:14-0500 Body temperature 97.88 [degF] DR AREN ZULUAGA MD [facility] 09-21-2023 07:14-0500 Heart rate 68 /min DR AREN ZULUAGA MD [facility] 09-21-2023 07:14-0500 Respiratory rate 20 /min DR AREN ZULUAGA MD [facility] 09-20-2023 23:08-0500 Heart rate 67 /min DR AREN ZULUAGA MD [facility] 09-20-2023 14:22-0500 Body temperature 96.62 [degF] DR AREN ZULUAGA MD [facility] 09-20-2023 14:22-0500 Heart rate 58 /min DR AREN ZULUAGA MD [facility] 09-20-2023 13:47-0500 Body height 165.[address] AREN ZULUAGA MD [facility] 09-20-2023 13:47-0500 Body weight 87.[address] AREN ZULUAGA MD [facility] 09-20-2023 13:47-0500 Body weight 32.25 kg/m2 DR AREN ZULUAGA MD [facility] 09-20-2023 13:38-0500 Body temperature 96.62 [degF] DR AREN ZULUAGA MD [facility] 09-20-2023 13:38-0500 Heart rate 54 /min DR AREN ZULUAGA MD [facility] 09-20-2023 12:25-0500 Body temperature 97.16 [degF] DR AREN ZULUAGA MD [facility] 09-20-2023 12:20-0500 Respiratory Rate - Anes 21 br/min DR AREN ZULUAGA MD [facility] 09-20-2023 12:15-0500 Respiratory Rate - Anes 25 br/min DR AREN ZULUAGA MD [facility] 09-20-2023 12:10-0500 Respiratory Rate - Anes 26 br/min DR AREN ZULUAGA MD [facility] 09-20-2023 10:30-0500 Heart rate 59 /min DR AREN ZULUAGA MD [facility] 09-20-2023 08:52-0500 Body height 165.[address] AREN ZULUAGA MD [facility] 09-20-2023 08:52-0500 Body temperature 97.7 [degF] DR AREN ZULUAGA MD [facility] 09-20-2023 08:52-0500 Body weight 87.[address] AREN ZULUAGA MD [facility] 09-20-2023 08:52-0500 Heart rate 65 /min DR AREN ZULUAGA MD [facility] 08-26-2023 11:55-04[address] Blood Pressure Cuff Size DR AREN ZULUAGA MD [facility] 08-26-2023 11:55-[address] AREN ZULUAGA MD [facility] 08-26-2023 11:55-[address] AREN Sol [facility] 08-26-2023 11:55-0400 Body height 165.[address] AREN ZULUAGA MD [facility] 08-26-2023 11:55-0400 Body weight 87.[address] AREN ZULUAGA MD [facility] 08-26-2023 11:55-0400 Body weight 32.25 kg/m2 DR AREN ZULUAGA MD [facility] 08-26-2023 11:55-0400 Diastolic Blood Pressure Non-Invasive [address] AREN ZULUAGA MD [facility] 08-26-2023 11:55-0400 Heart rate 64 /min DR AREN ZULUAGA MD [facility] 08-26-2023 11:55-0400 Systolic Blood Pressure Non-Invasive [address] AREN ZULUAGA MD [facility] Encounters Encounter Date Encounter Type Care Provider Facility Start: 11-03-[address] AREN ZULUAGA MD [facility] Start: 11-02-[address] AREN ZULUAGA MD [facility] Start: 09-20-2023 End: 09-21-2023 ambulatory ALEX GIANG MD Facility:B Start: 09-20-2023 End: 09-21-[address] AREN ZULUAGA MD [facility] Start: 08-26-2023 End: 08-27-[address] AREN ZULUAGA MD Facility:[facility] Start: 08-26-2023 End: 08-26-[address] AREN ZULUAGA MD [facility] Start: 08-26-2023 End: 08-26-[address] AREN ZULUAGA MD [facility] Procedures Date Procedure Procedure Detail Performing Clinician Arthroscopy of knee DR TONIE ZULUAGA MD Immunizations Immunization Date Immunization Notes Care Provider [facility] 08-12-2023 influenza virus vaccine, unspecified formulation DR AREN ZULUAGA MD [facility] 08-12-2023 pneumococcal 20-gabby nt conjugate vaccine DR AREN ZULUAGA MD [facility] 05-24-2023 tetanus toxoid, redu annabelle diphtheria toxoid, and acellular pertussis vaccine, adsorbed DR AREN ZULUAGA MD [facility] 09-03-2022 influenza virus vaccine, unspecified formulation DR AREN ZULUAGA MD [facility] 08-31-2022 SARS-CoV-2 (CV19)mRNA-[address] AREN ZULUAGA MD [facility] Payers Date Payer Category Payer Private Health Insurance 101 [id number] 1940 Unknown [id number] [id number] 1940 Unknown [id number] 2.16.8 [id number] 1940 Unknown [id number] 2.16.8 [id number] 1940 Unknown [id number] 2.16.8 [id number] 1940 Unknown [id number] 2.16.8 [id number] 1940 Unknown [id number] 2.16.8 [id number] Social History Date Type Detail Facility Start: 08-26-2023 Tobacco smoking status Never s moked tobacco (finding) [facility] Sex Assigned At Female [facility] Functional Status Date Assessment Result Facility 09-21-2023 Functional Status Mod I [facility] 09-21-2023 Functional Status 2 [facility] 09-21-2023 Functional Status Identified as high risk, Fall ID band on, Room located near nursing station, Bed alert on, Door open, Non-Slip footwear [facility] 09-21-2023 Functional Status [facility] 09-21-2023 Functional Status bilateral knee high applied/on [facility] 09-20-2023 Functional Status [facility] 09-20-2023 Functional Status [facility] 09-20-2023 Functional Status [facility] 09-20-2023 Functional Status Supervised [facility] 09-20-2023 Functional Status Single level home [facility] 09-20-2023 Functional Status [facility] 09-20-2023 Functional Status Maintained, More than 8 hours [facility] 08-26-2023 Functional Status Sensory Deficits None [facility] Mental Status Date Assessment Result Facility 09-21-2023 Mental Status Orientation Asse ssment Oriented x 4 [facility] 09-21-2023 Mental Status Oriented x 4 [facility] 09-20-2023 Mental Status [facility] 09-20-2023 Mental Status [facility] Clinical Notes 04-30-2021 to 09-21-2023 Note Date & Type Note Facility 09-21-2023 Hospital Discharge instructions Patient Education 09/21/2023 13:06:09 Total Knee Replacement, Care After, Xusw-vp-Ctdr Total Knee Replacement, Care After This sheet [...] Follow these instructions at home: Medicines Take qply-scw-gaoivrp and prescription medicines only as told by [...] keep your pee (urine) pale yellow. ?Take wseu-ehp-qolewlo or prescription medicines. ?Eat foods that are [...] cannot use soap and water, use hand senior animal trainer. ?Change your bandage as told by your [...] 01/15/2013 Document Revised: 03/03/2020 Document Reviewed: 06/07/2019 [employer] Patient Education 2020 [employer]. 09/21/2023 06:56:19 5 - [facility] Post-op Instruction 06/2017 (71654) [facility] Post-operative Instructions PLEASE FOLLOW [facility] POST-OP INSTRUCTIONS GIVEN WATCH FOR SIGNS OF INFECTION: call the office ([phone]) if experencing any of the following: (Usually [...] on your follow up instructions. Form: 338A (59899) R: 03/13 Follow Up Care 07/26/2023 08:02:18 With:[facility] Address: [address] [place] [phone] When:09/23/2023 13:00:00 Comments:This is your first physical therapy appointment. Follow-up as scheduled. With:NOEMI JOEL PA-C, Orthopedic Address: [facility] [address] [place] [phone]- When:10/03/2023 13:30:00 Comments:This is your post-op appointment. Follow-up as scheduled. [facility] 09-21-2023 Note Discharge Instructions Thank you for allowing [facility] to assist you with your healthcare needs. [...] your post-op appointment. Follow-up as scheduled. Where: [facility] [address] [place] [address] [place] [address]- Follow Up with [facility] When 09/23/2023 01:00 PM EST Why: This is your first physical therapy appointment. Follow-up as scheduled. Where: [address] [place] [address] [place] [address]- [phone] The Following Treatments Have Been Ordered for [...] weeks postoperatively for DVT prophylaxis. Pickup at [facility] #68633 New docusate-senna (Senokot S 50 mg-8.6 mg oral tablet) 2 tab(s) by mouth Two (2) times a day Duration: 3 Days Take until first bowel movement, then as needed Pickup at [facility] #15516 New famotidine (Pepcid 20 mg oral tablet) 1 tab(s) by mouth Once a day Pickup at [facility] #89893 New oxyCODONE (oxyCODONE 5 mg oral tablet ( IMMEDIATE release )) See instructions Status post total right knee replacement 1-2 tab(s) Oral q4h Pickup at [facility] #29324 Changed acetaminophen (Tylenol) 1,000 Milligram by mouth [...] Once a day Pharmacy Information [id number]: [address] [place], [place] [id number] [phone] Please take this list to your next [...] may report side effects to FDA at 2-539-HZN-5233. What other drugs will affect docusate and senna? Other drugs may affect docusate and senna, including prescription and lcqv-gfo-rbqksmo medicines, vitamins, and herbal products. Tell your [...] to ensure that the information provided by [employer]. ('[employer]') is accurate, up-to-date, and complete, but no guarantee is made to that effect. Drug information contained herein may be time sensitive. [employer] information has been compiled for use by healthcare practitioners and consumers in the [place] and therefore [employer] does not warrant that uses outside of the [place] are appropriate, unless specifically indicated otherwise. [employer] drug information does not endorse drugs, diagnose patients or recommend therapy. [employer] drug information is an informational resource designed [...] effective or appropriate for any given patient. [employer] does not assume any responsibility for any aspect of healthcare administered with the aid of information [employer] provides. The information contained herein is not intended to cover all possible uses, directions, precautions, warnings, drug interactions, allergic reactions, or adverse effects. If you have questions about the drugs you are taking, check with your doctor, nurse or pharmacist. Copyright 2966-9960 [employer]. Version: 5.01. Revision Date: 06/13/2023. oxycodone (ox [...] The extended-release form of oxycodone is for nhctzv-www-kjwsr treatment of pain and should not be [...] against the law. Stop taking all other knrnsu-gfu-xjdyk opioid pain medicines when you start taking [...] may report side effects to FDA at 5-919-ELC-3209. What other drugs will affect oxycodone? You [...] may affect oxycodone. This includes prescription and bspj-roq-onwywkl medicines, vitamins, and herbal products. Not all [...] to ensure that the information provided by [employer]') is accurate, up-to-date, and complete, but no guarantee is made to that effect. Drug information contained herein may be time sensitive. [employer] information has been compiled for use by healthcare practitioners and consumers in the [place] and therefore [employer] does not warrant that uses outside of the [place] are appropriate, unless specifically indicated otherwise. [employer] drug information does not endorse drugs, diagnose patients or recommend therapy. [employer] drug information is an informational resource designed [...] effective or appropriate for any given patient. [employer] does not assume any responsibility for any aspect of healthcare administered with the aid of information [employer] provides. The information contained herein is not intended to cover all possible uses, directions, precautions, warnings, drug interactions, allergic reactions, or adverse effects. If you have questions about the drugs you are taking, check with your doctor, nurse or pharmacist. Copyright 7478-4548 [employer]. Version: 16.. Revision Date: 06/10/2023. acetaminophen (oral) [...] provided dosing device provided to measure an 's dose. Acetaminophen comes in many different forms [...] may report side effects to FDA at 2-964-MFI-8362. What other drugs will affect acetaminophen? Other drugs may affect acetaminophen, including prescription and qprw-wrn-gxcilym medicines, vitamins, and herbal products. Tell your [...] to ensure that the information provided by [employer]. ('[employer]') is accurate, up-to-date, and complete, but no guarantee is made to that effect. Drug information contained herein may be time sensitive. [employer] information has been compiled for use by healthcare practitioners and consumers in the [place] and therefore [employer] does not warrant that uses outside of the [place] are appropriate, unless specifically indicated otherwise. [employer] drug information does not endorse drugs, diagnose patients or recommend therapy. [employer] drug information is an informational resource designed [...] effective or appropriate for any given patient. [facility] does not assume any responsibility for any aspect of healthcare administered with the aid of information [facility] provides. The information contained herein is not intended to cover all possible uses, directions, precautions, warnings, drug interactions, allergic reactions, or adverse effects. If you have questions about the drugs you are taking, check with your doctor, nurse or pharmacist. Copyright 9831-3398 [employer]. Version: .. Revision Date: 06/06/2023. aspirin (oral) ( pir in) Aspi-Cor, Lore Plus, Durlaza, Ecotrin, Miniprin, Vazalore What is the most important information I should know about aspirin? Aspirin can cause Kimberly's syndrome, a serious and sometimes fatal condition in children. What is aspirin? Aspirin is a salicylate (hk-HGB-mb-ate) that is used to treat pain, and [...] may report side effects to FDA at 7-756-DVW-7528. What other drugs will affect aspirin? Ask [...] drugs may affect aspirin, including prescription and ctwt-cyl-pkbuaux medicines, vitamins, and herbal products. Not all [...] to ensure that the information provided by [employer]') is accurate, up-to-date, and complete, but no guarantee is made to that effect. Drug information contained herein may be time sensitive. [employer] information has been compiled for use by healthcare practitioners and consumers in the [place] and therefore [employer] does not warrant that uses outside of the [place] are appropriate, unless specifically indicated otherwise. [employer] drug information does not endorse drugs, diagnose patients or recommend therapy. [employer] drug information is an informational resource designed [...] effective or appropriate for any given patient. [employer] does not assume any responsibility for any aspect of healthcare administered with the aid of information [employer] provides. The information contained herein is not intended to cover all possible uses, directions, precautions, warnings, drug interactions, allergic reactions, or adverse effects. If you have questions about the drugs you are taking, check with your doctor, nurse or pharmacist. Copyright 6929-9535 [employer]. Version: 18.. Revision Date: 05/30/2023. famotidine (oral/injection) [...] may report side effects to FDA at 2-251-DNS-9190. What other drugs will affect famotidine? Famotidine oral can make it harder for your body to absorb other medicines you take by mouth. Tell your doctor if you are taking: cefditoren; dasatinib; delavirdine; fosamprenavir; or tizanidine (if you are taking famotidine liquid). This list is not complete. Other drugs may affect famotidine, including prescription and rxqg-cwb-ozkjtpr medicines, vitamins, and herbal products. Not all [...] to ensure that the information provided by [employer]. ('[employer]') is accurate, up-to-date, and complete, but no guarantee is made to that effect. Drug information contained herein may be time sensitive. [employer] information has been compiled for use by healthcare practitioners and consumers in the [place] and therefore [employer] does not warrant that uses outside of the [place] are appropriate, unless specifically indicated otherwise. [employer] drug information does not endorse drugs, diagnose patients or recommend therapy. [employer] drug information is an informational resource designed [...] effective or appropriate for any given patient. [employer] does not assume any responsibility for any aspect of healthcare administered with the aid of information [employer] provides. The information contained herein is not intended to cover all possible uses, directions, precautions, warnings, drug interactions, allergic reactions, or adverse effects. If you have questions about the drugs you are taking, check with your doctor, nurse or pharmacist. Copyright 2116-4762 [employer]. Version: .. Revision Date: 05/30/2023. Education Materials [...] Follow these instructions at home: Medicines Take qbbc-eav-dptcocz and prescription medicines only as told by [...] your pee (urine) pale yellow. ? Take kzkv-wck-dpkpqml or prescription medicines. ? Eat foods that [...] cannot use soap and water, use hand senior animal trainer. ? Change your bandage as told by your doctor. ? Leave stitches (sutures), skin glue, or skin tape (adhesive) strips in bruna (more content not included)... [facility] 09-21-2023 Note Date of Service September 21, [...] does have outpatient physical therapy established at [facility]. She will follow-up per postoperative instructions. Patient would like her prescriptions E scribed to Jaimie Humphreys in [facility]. Upon discharge she will contact her office with any concerns or questions. I have reviewed the [place] Automated Rx Reporting System (OARRS) report for [...] NOEMI JOEL PA-C on 09/21/2023 06:56 AM [facility] 09-21-2023 Note Date of Service September 21, [...] does have outpatient physical therapy established at [facility]. She will follow-up per postoperative instructions. Patient would like her prescriptions E scribed to Jaimie Humphreys in [facility]. Upon discharge she will contact her office with any concerns or questions. I have reviewed the [place] Automated Rx Reporting System (OARRS) report for [...] NOEMI JOEL PA-C on 09/21/2023 06:56 AM [facility] 09-20-2023 Note ORIGINAL EXAMINATION: TWO XRAY VIEWS [...] Date: 09/20/2023 1:06:13 PM Ordering Provider: AREN UZLUAGA [facility] 09-20-2023 Anesthesiology Consult note Patient: JENNIFER MON [...] or recorded. Procedure history: Arthroscopy of knee ([id number]). Comments: 09/20/2023 8:59 Montse Valente RN LEFT [...] Height 165.1 cm Admission Weight 87.9 kg [place] Body Weight 57.00 kg Admission Body Mass [...] We May Share PHI SOL [place] [phone] Designated Person #1 Relationship Daughter Designated Person #2 We May Share PHI RIC TRUJILLO [phone] Designated Person #2 Relationship Daughter Privacy Restrictions [...] No Advanced Directives Yes Advance Directive Type [place] Durable Power of Machine Ii Coremaker for [place], [place] Declaration (Living Will) Advance Directive Location [...] after midnight, No makeup, No jewelry, Responsible Green Party, Aware of surgery location, Pre-op education done, 1 bottle CHG wash with instructions given, No ordered medications, Total Joint Replacement/Colorectal Book Given, SSI prevention handout given, Anesthesia block education provided SN - Preprocedure Comments Spoke with patient, Verbalizes/Nonverbally indicates understanding Anesthesia Evaluation Date/Time 08/26/2023 12:43 Anesthesia Evaluation Performed By LAM DAVILA E LEARNING SPECIALIST-CONTINUITY COORDINATOR Anesthesia Evaluation Result Approved Individuals Taught Patient, Daughter Barriers to Learning None evident Teaching Method Explanation Preferred Spoken Language Tristanian Preferred Written Language Tristanian Total Joint Book Given Yes Pre Procedure/Surgery [...] Height 165.1 cm Admission Weight 87.9 kg [place] Body Weight 57.00 kg Admission Body Mass [...] no difficulties Skin Temperature Warm Skin Description [place], Dry Skin Integrity Intact Neurological Symptoms Patient [...] Upper/Half-Length side-rails up . Assessment and Plan [place] [employer] Anesthesiologists (ASA) physical status classification: Class III. Anesthetic Preoperative Plan Anesthetic technique: Spinal. Regional: Spinal. Postoperative pain management: adductor canal block. Risks discussed: nausea, vomiting, headache, hypotension, allergic reaction, serious complications. Informed consent: signed by patient. Digitally Signed by LAM DAVILA on 09/20/2023 10:24 AM [facility] 08-26-2023 Note ORIGINAL EXAMINATION: CT of the [...] 08/26/2023 4:18:41 PM Ordering Provider: AREN ZULUAGA [facility] 04-30-2021 Note HNO ID: [id number] Author: Jin Hinds MD Service: ? Author Type: Physician Type: Progress Notes Filed: 05/05/2021 8:44 PM Note Text: CONSULT ORTHOPAEDIC: KNEE PRIMARY CARE PHYSICIAN: No primary care provider on file. REFERRING PROVIDER: SELF ASSESSMENT AND PLAN Impression: Left Knee Severe Degenerative Osteoarthritis, Primary After discussion with Jennifer Mon, continued non-operative management of disc recordist bracing and Voltaren gel was chosen. The [...] and healthy. The patient has been ordered: Dining Room Captain brace CONSULTS: Patient does not require consults [...] noted to hav (more content not included)... [facility] Evaluation + Plan note Future Appointments [facility] Hospital course Narrative No data available for this section [facility] Hospital Discharge instructions No data available for this section [facility] Progress note No data available for this section [facility] Summary Purpose Family History No Family History [...] DATE CREATED AUTHOR AUTHOR'S ORGANIZ ATION 12/09/2021 [facility] [facility] DATE CREATED AUTHOR AUTHOR'S ORGANIZ ATION 11/03/2023 [facility] ([place]) Patient Care team informatio n (unrecognized section and content) Care Team Personnel Name: ALEX GIANG MD Member Role: Primary Care Physician Address: Address: [address] [place] [address] Care Team Related Persons Name: RIC TRUJILLO Care Team Personnel Name: ALEX GIANG MD Member Role: Primary Care Physician Address: Address: [address] [place] [address] Care Team Related Persons Name: RIC TRUJILLO Care Team Personnel Name: ALEX GIANG MD Member Role: Primary Care Physician Address: Address: [address] [place] [address] Care Team Related Persons Name: RIC TRUJILLO [...] BE BASED ON THE PRIMARY CLINICAL RECORDS. [facility] provides no warranty or guarantee of the accuracy or completeness of information in this document.
[2023-12-23 13:12] VITALS: BP 180/77; PULSE 69; RESP 18; TEMP 37.1; O2SAT 95
[2023-12-23] MEDS: Acetaminophen 500 MG Tablet 1000 MG PO ×2 (13:51→21:07)
[2023-12-23] MEDS: oxyCODONE 5 MG Tablet PO (13:52)
--- NOTE | 2023-12-23 14:10 | RAD_ITS ---
STUDY: X-RAY - ABDOMEN/PELVIS REASON FOR EXAM: Female, 83 years old. Constipation, aches TECHNIQUE: Frontal views COMPARISON: None. FINDINGS: Normal visualized lung bases. There is an unremarkable bowel gas pattern. Mild colonic fecal retention. There is no demonstrated free abdominal air. The visualized liver, spleen and kidneys are grossly normal in size and morphology. Normal soft tissue structures. Degenerative vertebral changes. RAD/Abdomen Single View (Portable) IMPRESSION: Mild colonic fecal retention. Electronically Signed: Chapito Grider DO at 16:48 EST ,
--- NOTE | 2023-12-23 14:10 | RAD_ITS ---
INDICATION: generalized aching, chills EXAMINATION/TECHNIQUE: X-RAY - XR Chest 2 Views COMPARISON: July 02, 2022 FINDINGS: LINES/DEVICES: None. LUNGS: No consolidation, edema or effusion. No pneumothorax. MEDIASTINUM AND CARDIOVASCULAR STRUCTURES: Cardiac silhouette not enlarged. Central airways and mediastinal contour are unremarkable. BONES AND SOFT TISSUES: Degenerative changes at the shoulders. RAD/Chest PA and Lateral IMPRESSION: No radiographic evidence of acute cardiopulmonary disease. Electronically Signed: Chapito Grider DO at 16:50 EST ,
--- NOTE | 2023-12-23 14:10 | PCM.HP.STD ---
HPI - General General Date of Admission: 12/23/23 Date of Service: 12/23/23 Chief Complaint: Here for rehabilitation. HPI Narrative FRED RESTREPO, is a 83 Female who presents with followin12/21/2023 Admit to [facility]. 12/21/2023 Dr. Guzman performed left TKA. 12/22/2023 Pain controlled, reactive leukocytosis. Medically stable. 12/22/2023 Lives alone. Iron, Folic acid, per anemia protocol. Tylenol, Meloxicam, Oxycodone for pain. Aspirin 81mg bid x 4 weeks for DVT prophylaxis. PT/OT. Hemoglobin 10.6. 12/23/2023 Slightly confused yesterday, improved today. 12/23/2023 Admit to TCU with debility, here for rehabilitation, strengthening, prior to discharge home alone. On arrival, resident having chills, body aches. Mentation baseline. Discussed with daughter Camille. [facility] Medical History (Updated 12/23/23 @ 14:[address] Nima Harper MD) Ambulates with cane Arthritis High cholesterol History of echocardiogram History of edema History of stress test Hyperlipidemia Hypertension Injury of head and neck Non-smoker Post-menopausal Shortness of breath on exertion Walker as ambulation aid Wears glasses Home Medications lovastatin 40 mg tablet 40 mg PO DAILY Cholesterol 04/29/20 [History Last Taken 12/22/23 21:40] cholecalciferol (vitamin D3) 50 mcg (2,000 unit) capsule 50 mcg PO DAILY health maintenance 06/23/22 [History Last Taken 12/23/23 09:30] lisinopril 10 mg tablet 10 mg PO DAILY BP 06/23/22 [History Last Taken 12/23/23 09:30] acetaminophen 500 mg tablet 1,000 mg (2 x 500 mg) PO Q8 pain #0 tabs 12/23/23 [Rx Last Taken 12/23/23 09:30] aspirin 81 mg chewable tablet 81 mg PO BIDCM heart #0 tabs 12/23/23 [Rx Last Taken 12/23/23 09:30] famotidine 20 mg tablet 20 mg PO DAILY Acid #0 tabs 12/23/23 [Rx Last Taken 12/23/23 09:30] melatonin 3 mg tablet 3 mg PO QHS sleep #0 tabs 12/23/23 [Rx Last Taken 12/22/23 21:35] meloxicam 7.5 mg tablet 7.5 mg PO BID pain #0 tabs 12/23/23 [Rx Last Taken 12/23/23 09:30] nut.tx.comp. immune systm,reg 0.08 gram-1.4 kcal/mL oral liquid (Ensure Surgery) 237 ml PO TIDCM health maintenance #0 mL 12/23/23 [Rx Last Taken 12/22/23 08:10] oxycodone 5 mg tablet 5 - 10 mg (1 - 2 x 5 mg) PO Q4H PRN PRN Pain Score 4-10 5 days #42 tabs 12/23/23 [Rx Last Taken 12/23/23 10:40] sennosides 8.6 mg-docusate sodium 50 mg tablet (Stool Softener-Stimulant Laxative) 2 tab PO BID constipation 5 days #20 tabs 12/23/23 [Rx Last Taken 12/23/23 09:30] Allergy/AdvReac Type Severity Reaction Status Date / Time No Known Allergies Allergy Verified 12/21/23 06:41 Surgical History Hx of colonoscopy Hx of left knee surgery Hx of total knee replacement Status post total left knee replacement Social History Smoking Status: Former smoker alcohol intake: never substance use type: does not use caffeine: Yes what type of physical activity do you participate in: none seatbelt use: always do you feel safe at home: Yes additional social history: ROS Constitutional Constitutional: Denies chills, fever(s) or weight gain ENT HEENT: Denies headache(s), nasal congestion or nasal discharge Cardiovascular Cardiovascular: Denies chest pain or palpitations Respiratory/Chest Respiratory/Chest: Denies cough, excessive phlegm production or shortness of breath with exertion Gastrointestinal Gastrointestinal: Denies abdominal pain, nausea or vomiting Genitourinary Genitourinary: Denies dysuria Musculoskeletal Musculoskeletal: Denies joint pain or joint swelling Integumentary Integumentary: Denies rash or wounds Neurologic Neurologic: Denies focal weakness, numbness or tingling Psychiatric Psychiatric: Denies anxiety, auditory hallucinations, depression, homicidal ideation or suicidal ideation Vital Signs Vital Signs Vital Signs: 12/23/23 13:12 Temperature 98.8 F Temperature Source Temporal Pulse Rate 69 Respiratory Rate 18 Blood Pressure 180/77 H Blood Pressure Mean 111 Blood Pressure Source Monitor Blood Pressure Position Semi-Fowlers Blood Pressure Location Right Arm Pulse Ox 95 Oxygen Delivery Method Room Air Weight Weight: 86.455 kg Body Mass Index (BMI) 31.7 Physical Exam Const alert General Appearance: cooperative HEENT normocephalic Eyes PERRL and EOMs intact bilaterally Neck supple, no JVD and no carotid bruits Resp normal respiratory effort, normal air movement and clear to auscultation bilaterally Cardio regular rate and regular rhythm GI normal to inspection, nondistended, normoactive bowel sounds, non-tender and non-distended Extremity normal capillary refill Extremity Narrative: Left incision warm to touch. General Extremity: edema left Skin no rashes or lesions noted General Skin Exam: no breakdown Psych affect normal Appearance: appropriate Results Lab / Micro Data 12/23/23 14:00 12/23/23 14:00 Assessment & Plan Assessment/Plan (1) Debility: (2) Status post total left knee replacement: (3) Postoperative anemia: (4) Cellulitis of left knee: (5) Edema of left lower extremity: (6) Acute encephalopathy: (7) Hypertension: (8) Hyperlipidemia: (9) Carotid artery stenosis: (10) Osteopenia: PLAN: Plan 82 year old female with below past medical history hospitalized for left TKA 12/21/[address] Guzman, postoperative course complicated by encephalopathy, anemia, admitted to TCU with debility, here for rehabilitation, strengthening, prior to discharge home alone. Debility - PT/OT. Pain - Tylenol 1000mg q8, Meloxicam 7.5mg bidcm, Oxycodone 5-10mg q4 prn Bowel - senna/colace 2 tablets bid, Magnesium citrate 300ml daily prn. Adult immunization - Administer pneumonia vaccine, covid vaccine, flu vaccine as appropriate. DVT prophylaxis - Aspirin 81mg bidcm thru 01/18/2024. Acute encephalopathy - cbcd, bmp, ua, c+s, covid-19, respiratory panel, CXR, KUB. Hyperlipidemia - Atorvastatin 10mg qhs. Cellulitis left knee - Keflex 500mg q12 thru 12/30/2023, Doxycycline 100mg bid thru 12/30/2023. Left lower extremity edema - Doppler ultrasound left lower extremity. Vitamin D deficiency - D3 25mcg daily. Nutrition - Ensure Surgery 237ml tidcm. GERD - Famotidine 20mg daily. Hypertension - Lisinopril 10mg daily, blood pressure 180 systolic, Hydralazine 25mg po x 1 dose given. Insomnia - Melatonin 3mg qhs.
[2023-12-23 14:24] LABS: Hematocrit 34.2 % (37-47); Mean Corp Hgb Conc 32.2 g/dL (32-36); Mean Corpuscular Hgb 28.5 pg (27.0-32.0); Mean Corpuscular Volume 88.6 fL (81-99); Mean Platelet Vol. 10.6 fl (6.2-12.0); Platelet Count 158 K/mm3 (150-450); RBC Distribution Width CV 14.6 % (11.6-14.6); RBC Distribution Width SD 46.7 fl (35.1-43.9); Red Blood Count 3.86 M/mm3 (4.2-5.4); White Blood Count 9.6 K/mm3 (4.4-11.0)
[2023-12-23 14:40] LABS: Anion Gap 8 (5-15); BUN 14 mg/dL (7-18); BUN/Creat Ratio 21.8 RATIO (10-20); Calcium,Total 9.8 mg/dL (8.5-10.1); Chloride 105 mmol/L (98-107); Creatinine, Serum 0.64 mg/dL (0.55-1.02); EST Glomerular Filtration Rate 94 mL/min (>60); Est Glom Filt Rate - Afr Amer 114 mL/min (>60); Estimated Creatinine Clearance 57.86 ml/min; Glucose 126 mg/dL (74-106); Potassium 3.9 mmol/L (3.5-5.1); Sodium Level 138 mmol/L (136-145)
[2023-12-23 14:47] VITALS: PULSE 69
[2023-12-23] MEDS: hydrALAZINE 25 MG Tablet PO (14:47)
[2023-12-23] MEDS: Doxycycline 100 MG CAPSULE PO ×2 (14:50→21:07)
[2023-12-23] MEDS: Cephalexin 500 MG Capsule PO ×2 (14:50→21:07)
[2023-12-23] MEDS: Meloxicam 7.5 MG Tablet PO (17:44)
[2023-12-23] MEDS: Aspirin 81 MG TAB.CHEW PO (17:44)
[2023-12-23] MEDS: Ensure Surgery 237 ML LIQUID PO (17:48)
[2023-12-23] MEDS: MELATONIN 3 MG TABLET PO (21:07)
[2023-12-23] MEDS: Atorvastatin Calcium 10 MG Tablet PO (21:07)
--- NOTE | 2023-12-24 02:00 | PCA ---
This INSTRUCTOR OF SOCIOLOGY was at the desk and heard a noise down the triana. looked down the triana and saw patient standing outside room with walker. helped patient back into bed. alarm pad placed on bed at this time.
--- NOTE | 2023-12-24 05:31 | NURSING ---
Pt was observed walking down the triana unassisted. Staff redirected pt and assisted her back to bed x2 assist. Frequent rounding by staff for safety. Resting comfortably at this time with no complaints.
[2023-12-24] MEDS: Acetaminophen 500 MG Tablet 1000 MG PO ×3 (05:33→21:20)
[2023-12-24 07:30] LABS: Absolute Lymphocyte Count 1.46 X10^3/uL (0.83-4.51); Absolute Neutrophil Count 4.9 X10^3/uL (2.0-7.7); Basophil# 0.05 X10^3/uL; Basophil% 0.7 % (0-1); Eosinophil# 0.03 X10^3/uL; Eosinophils% 0.4 % (0-5); Hematocrit 32.3 % (37-47); Hemoglobin 10.5 g/dL (12.0-15.0); Lymphocyte # 1.46 X10^3/ul (0.83-4.51); Lymphocyte % 20.2 % (19-41); Mean Corp Hgb Conc 32.5 g/dL (32-36); Mean Corpuscular Hgb 28.7 pg (27.0-32.0); Mean Corpuscular Volume 88.3 fL (81-99); Mean Platelet Vol. 10.9 fl (6.2-12.0); Monocyte# 0.72 X10^3/uL; NRBC Flagged by Analyzer 0 % (0-5); Neutrophil # 4.92 X10^3/uL (2.7-7.7); Platelet Count 161 K/mm3 (150-450); RBC Distribution Width CV 14.6 % (11.6-14.6); RBC Distribution Width SD 46.9 fl (35.1-43.9); Red Blood Count 3.66 M/mm3 (4.2-5.4); White Blood Count 7.2 K/mm3 (4.4-11.0)
[2023-12-24 08:02] LABS: Anion Gap 5 (5-15); BUN 13 mg/dL (7-18); BUN/Creat Ratio 20.8 RATIO (10-20); Calcium,Total 9.3 mg/dL (8.5-10.1); Chloride 107 mmol/L (98-107); Creatinine, Serum 0.62 mg/dL (0.55-1.02); EST Glomerular Filtration Rate 97 mL/min (>60); Est Glom Filt Rate - Afr Amer 117 mL/min (>60); Estimated Creatinine Clearance 57.86 ml/min; Glucose 123 mg/dL (74-106); Potassium 3.7 mmol/L (3.5-5.1); Sodium Level 138 mmol/L (136-145)
[2023-12-24 09:03] VITALS: BP 163/74; PULSE 78; RESP 18; O2SAT 97
[2023-12-24] MEDS: Lisinopril 10 MG Tablet PO (09:05)
[2023-12-24] MEDS: Senna/Docusate Sodium 1 Tablet 2 TABLET PO ×2 (09:06→21:21)
[2023-12-24] MEDS: Cephalexin 500 MG Capsule PO ×2 (09:06→21:21)
[2023-12-24] MEDS: Doxycycline 100 MG CAPSULE PO ×3 (09:06→21:22)
[2023-12-24] MEDS: Aspirin 81 MG TAB.CHEW PO ×2 (09:06→17:53)
[2023-12-24] MEDS: Meloxicam 7.5 MG Tablet PO ×2 (09:06→17:53)
[2023-12-24] MEDS: Cholecalciferol (VIT D3) 25 MCG TABLET (1,000 UNITS) 50 MCG PO (09:07)
[2023-12-24] MEDS: Famotidine 20 MG Tablet PO (09:07)
--- NOTE | 2023-12-24 09:28 | NURSING ---
Addendum entered by Juana Sauer 12/24/23 12:44: Obtained clean catch urine sample, (pt refused straight cath this AM). Addendum entered by Juana Sauer 12/24/23 12:04: Unable to obtain urine specimen, patient refusing. Continuing with encouraging fluid intake; pt states she will attempt after eating lunch. Original Note: In report this morning, was told that UA w/ C&S had been collected, results pending. Lab reports no sample sent. Spoke with patient, refusing to use bathroom at this time, states she just went. Encouraged fluid intake and importance of tx; pt agreeable.
[2023-12-24] MEDS: Tuberculin,Purif.prot.deriv. 50 TU/ML Vial 0.100000000000000006 ML ID (11:26)
[2023-12-24] MEDS: Magnesium Citrate 300 ML PO (11:33)
[2023-12-24] MEDS: oxyCODONE 5 MG Tablet PO (11:34)
[2023-12-24] MEDS: Ensure Surgery 237 ML LIQUID PO ×2 (12:17→17:52)
[2023-12-24 12:49] LABS: Mucous, Urine 0 SEEN /hpf (<or=2+)
[2023-12-24 12:51] LABS: Color, Urine Yellow (Yellow); Glucose, Dipstick Normal (Normal); Ketone-Dipstick Negative (Negative); Leukocyte Esterase-Dipstick 25 /ul (Negative); Nitrite-Dipstick Negative (Negative); Occult Blood-Urine 50 /ul (Negative); Protein-Dipstick 15 mg/dl (Negative); Specific Gravity, Urine 1.015 (1.002-1.030); Urine Bilirubin Dipstick Negative (Negative); Urine Clarity Clear (Clear); Urine Urobilinogen Normal (Normal); Urine pH 6.5 (5.0 - 8.0)
[2023-12-24 13:07] LABS: Bacteria RARE /hpf (None Seen); Red Blood Cells-Urine 5-10 SEEN /hpf (0-5); Squamous Epithelial Cells - UA 0-5 SEEN /hpf (5-10); White Blood Cells 0-5 SEEN /hpf (0-5)
[2023-12-24 15:28] VITALS: BP 167/75; PULSE 76; RESP 19; TEMP 37.2; O2SAT 98
--- NOTE | 2023-12-24 17:04 | NURSING ---
Addendum entered by Juana Saure 12/25/23 13:23: When asked this morning, pt denies having had issues sleeping and nightmares. States that with 'nightmares' the past few nights, she was awake when she saw electric/lightning running down the madden. Daughter, Camille present at bedside this afternoon, states that she received phone call from pt twice last night. Camille also reports that pt has been having confusion and hallucinations since having knee surgery 12/21, but that confusion/hallucinations have resolved during daytime. Both pt and daughter in pleasant mood at this time, with no further comments/concerns. Will place on list for Dr. Harper to review. Original Note: Pt complains of having nightmares for past two nights, states she does not want PRN Oxy this evening. Last dose given around noon today. Pt reports that she was able to sleep, but woke up from the nightmares of electricity/storms.
[2023-12-24] MEDS: MELATONIN 3 MG TABLET PO (21:21)
[2023-12-24] MEDS: Atorvastatin Calcium 10 MG Tablet PO (21:23)
[2023-12-25] MEDS: Acetaminophen 500 MG Tablet 1000 MG PO ×3 (05:46→21:39)
[2023-12-25 08:34] VITALS: BP 153/93; PULSE 72; RESP 18; O2SAT 96
[2023-12-25] MEDS: Meloxicam 7.5 MG Tablet PO ×2 (08:35→17:56)
[2023-12-25] MEDS: Aspirin 81 MG TAB.CHEW PO ×2 (08:35→17:56)
[2023-12-25] MEDS: Famotidine 20 MG Tablet PO (08:35)
[2023-12-25] MEDS: Cholecalciferol (VIT D3) 25 MCG TABLET (1,000 UNITS) 50 MCG PO (08:35)
[2023-12-25] MEDS: Cephalexin 500 MG Capsule PO ×2 (08:37→21:39)
[2023-12-25] MEDS: Senna/Docusate Sodium 1 Tablet 2 TABLET PO ×2 (08:37→21:39)
[2023-12-25] MEDS: Lisinopril 10 MG Tablet PO (08:38)
[2023-12-25] MEDS: oxyCODONE 5 MG Tablet PO ×2 (08:43→16:21)
[2023-12-25 14:43] VITALS: BP 142/65; PULSE 69; RESP 16; TEMP 37; O2SAT 95
--- NOTE | 2023-12-25 18:31 | NURSING ---
Pt on day 3 with no BM. Bowel sounds hyperactive x4 quadrants, no abdominal distension noted. Pt denies pain, discomfort. Pt accepted prune juice this afternoon, no results. Refusing other treatments tonight, states she can try something in the morning.
[2023-12-25] MEDS: Doxycycline 100 MG CAPSULE PO (21:39)
[2023-12-25] MEDS: MELATONIN 3 MG TABLET PO (21:39)
[2023-12-25] MEDS: Atorvastatin Calcium 10 MG Tablet PO (21:39)
[2023-12-26] MEDS: Acetaminophen 500 MG Tablet 1000 MG PO ×3 (04:04→21:07)
--- NOTE | 2023-12-26 07:37 | NURSING ---
Late entry for 12/25/23: Spoke w/ Dr. Harper via phone to update on continued issues w/ hallucinations and family's concerns questioning if Oxycodone is potentially the cause. New order received to DC Oxycodone and start Tramadoi 50 mg po every 6 hr prn pain with pain level noted on JAN.
--- NOTE | 2023-12-26 08:07 | PCM.PN.DRR ---
Documented by User: Tiffanie Matias 12/26/23 08:18 TCU RX Drug Regimen Review Subjective/Objective Subjective/Objective: Subjective: TCU Admission. 83 YOF hospitalized for left TKA 12/21/[address] Guzman, postoperative course complicated by encephalopathy, anemia. Admitted to TCU with debility for strengthening and rehabilitation. Objective: Allergies No Known Allergies Allergy (Verified 12/21/23 06:41) Current Medications Generic Name Dose Route Start Last Admin Trade Name Wes PRN Reason Stop Dose Admin Acetaminophen 1,000 mg 12/23/23 14:00 12/26/23 04:04 Acetaminophen 500 Mg Tablet PO 1,000 mg Q8 ANDRADE Administration Aspirin 81 mg 12/23/23 17:00 12/25/23 17:56 Aspirin 81 Mg Tab.Chew PO 01/18/24 13:06 81 mg BIDCM ANDRADE Administration Atorvastatin Calcium 10 mg 12/23/23 22:00 12/25/23 21:39 Atorvastatin Calcium 10 Mg Tablet PO 10 mg QHS ANDRADE Administration Cephalexin 500 mg 12/23/23 14:15 12/25/23 21:39 Cephalexin 500 Mg Capsule PO 12/30/23 22:01 500 mg Q12 ANDRADE Administration Cholecalciferol 50 mcg 12/24/23 10:00 12/25/23 08:35 Cholecalciferol (Vit D3) 25 Mcg Tablet (1,000 Units) PO 50 mcg DAILY ANDRADE Administration Doxycycline Monohydrate 100 mg 12/23/23 14:10 12/25/23 21:39 Doxycycline 100 Mg Capsule PO 12/30/23 14:11 100 mg BID ANDRADE Administration Enteral Nutritional Formula 237 ml 12/23/23 17:45 12/25/23 17:57 Ensure Surgery 237 Ml Liquid PO Not Given TIDCM [facility] Famotidine 20 mg 12/24/23 10:00 12/25/23 08:35 Famotidine 20 Mg Tablet PO 20 mg DAILY ANDRADE Administration Lisinopril 10 mg 12/24/23 10:00 12/25/23 08:38 Lisinopril 10 Mg Tablet PO 10 mg DAILY ANDRADE Administration Protocol Melatonin 3 mg 12/23/23 22:00 12/25/23 21:39 Melatonin 3 Mg Tablet PO 3 mg QHS ANDRADE Administration Meloxicam 7.5 mg 12/23/23 17:00 12/25/23 17:56 Meloxicam 7.5 Mg Tablet PO 7.5 mg BIDCM ANDRADE Administration Senna/Docusate Sodium 2 tablet 12/23/23 22:00 12/25/23 21:39 Senna/Docusate Sodium 1 Tablet PO 2 tablet BID ANDRADE Administration Tramadol HCl 50 mg 12/25/23 21:25 Tramadol 50 Mg Tablet PO Q6H PRN PRN Pain Score 1-10 Tuberculin PPD 0.1 ml 12/31/23 10:00 Tuberculin,Purif.Prot.Deriv. 50 Tu/Ml Vial ID 12/31/23 10:01 X1 ONE Problem List (Updated 12/22/23 @ 10:[address] Stefano Avina MD) Osteopenia (Acute) Carotid artery stenosis (Acute) Hyperlipidemia (Acute) Hypertension (Chronic) Acute encephalopathy (Acute) Edema of left lower extremity (Acute) Cellulitis of left knee (Acute) Postoperative anemia (Acute) Debility (Acute) Status post total left knee replacement (Acute) Vital Signs Temp Pulse Resp BP Pulse Ox O2 Del Method 98.6 F 69 16 142/65 H 95 Room Air 12/25/23 14:43 12/25/23 14:43 12/25/23 14:43 12/25/23 14:43 12/25/23 14:43 12/25/23 14:43 Oxygen Delivery Method Room Air Weight: 86.455 kg Body Mass Index (BMI) 31.7 Sodium 138 mmol/L (136-145) 12/24/23 06:17 Potassium 3.7 mmol/L (3.5-5.1) 12/24/23 06:17 Chloride 107 mmol/L (98-107) 12/24/23 06:17 Carbon Dioxide 26.0 mmol/L (21.0-32.0) 12/24/23 06:17 Anion Gap 5 (5-15) 12/24/23 06:17 BUN 13 mg/dL (7-18) 12/24/23 06:17 Creatinine 0.62 mg/dL (0.55-1.02) 12/24/23 06:17 Est GFR (MDRD) Af Amer 117 mL/min (>60) 12/24/23 06:17 Est GFR (MDRD) Non-Af 97 mL/min (>60) 12/24/23 06:17 BUN/Creatinine Ratio 20.8 RATIO (10-20) H 12/24/23 06:17 Glucose 123 mg/dL (74-106) H 12/24/23 06:17 Assessment/Plan: 1. Pain: acetaminophen 1000mg PO Q8, meloxicam 7.5mg PO BIDCM and tramadol 50mg PO Q6H PRN pain 1-10. Resident has not had any doses of tramadol but did have doses of oxycodone. Please continue to monitor for increased pain, PRN usage, renal function, respiratory depression, constipation, falls/fractures (BEERs medication) and S/S of bleeding. 2. Bowel: senna/docusate 2T PO BID. Please continue to monitor for constipation and diarrhea. Last documented bowel movement was today. 3. DVT prophylaxis: aspirin 81mg PO BIDCM thru 01/18/24. Please continue to monitor for S/S of bleeding/DVT and hemoglobin (last 10.5g/dL). 4. Left knee cellulitis: cephalexin 500mg PO Q12 thru 12/30/23 and doxycycline 100mg PO BID thru 12/30/23. Please continue to monitor for S/S of infection, diarrhea and renal function (CrCl 57 mL/min). 5. Hyperlipidemia: atorvastatin 10mg PO QHS. Please continue to monitor lipid panel (last 10/14/23), LFTs (last 10/14/23) and muscle pain. 6. Hypertension: lisinopril 10mg PO daily. Please continue to monitor BP (last 142/65), potassium (last 3.7mmol/L), renal function and dry, hacking cough. 7. GERD: famotidine 20mg PO daily. Please continue to monitor for S/S of GERD and renal function. 8. Insomnia: melatonin 3mg PO QHS. Please continue to monitor for oversedation or insomnia. 9. Vitamin D deficiency: cholecalciferol 50mcg PO daily. Please continue to monitor vitamin D (last 10/14/23). Assessment/Plan for indications treated with psychotropic medications: None Medical chart and medication regimen reviewed. The following medication irregularities or issues were identified: None Date Date of Note:: 12/26/23 Documented by User: Dr. Nima Harper MD 12/26/23 08:49 TCU RX Drug Regimen Review Provider Comments Provider responsibility Provider Comments to Recommendations by Pharmacy: Agree
[2023-12-26] MEDS: Aspirin 81 MG TAB.CHEW PO ×2 (08:34→17:09)
[2023-12-26] MEDS: Meloxicam 7.5 MG Tablet PO ×2 (08:34→17:10)
[2023-12-26] MEDS: Doxycycline 100 MG CAPSULE PO ×2 (08:35→21:07)
[2023-12-26] MEDS: Cephalexin 500 MG Capsule PO ×2 (08:35→21:08)
[2023-12-26] MEDS: Famotidine 20 MG Tablet PO (08:35)
[2023-12-26] MEDS: Senna/Docusate Sodium 1 Tablet 2 TABLET PO ×2 (08:35→21:08)
[2023-12-26] MEDS: Cholecalciferol (VIT D3) 25 MCG TABLET (1,000 UNITS) 50 MCG PO (08:35)
[2023-12-26] MEDS: Lisinopril 10 MG Tablet PO (08:36)
[2023-12-26 08:49] VITALS: BP 178/72; PULSE 74
--- NOTE | 2023-12-26 11:33 | NURSING ---
Offered covid vaccine, patient declines, reports she had it recently with per PCP.
[2023-12-26] MEDS: traMADol 50 MG Tablet PO (11:50)
[2023-12-26] MEDS: Ensure Surgery 237 ML LIQUID PO (13:10)
[2023-12-26 15:42] VITALS: BP 164/78; PULSE 103; RESP 14; TEMP 37; O2SAT 92
--- NOTE | 2023-12-26 17:02 | CASEMGMT ---
Social Work Met with patient to complete initial assessment. Introduced self and role. Verified contacts. Confirmed code status as full code. SW requested pt have family provide copies of advanced directives. Educated to [facility] insurance with NRD 12/27 and continued stay is not guaranteed with each review. Pt's goal is to return home alone at [facility]. SW will continue to follow for DC planning. Nicki Gillette, ISAAC HOSKINSW
[2023-12-26] MEDS: Atorvastatin Calcium 10 MG Tablet PO (21:08)
[2023-12-26] MEDS: MELATONIN 3 MG TABLET PO (21:08)
[2023-12-27] MEDS: traMADol 50 MG Tablet PO ×2 (00:03→11:44)
[2023-12-27] MEDS: Acetaminophen 500 MG Tablet 1000 MG PO ×3 (05:18→21:56)
[2023-12-27] MEDS: Aspirin 81 MG TAB.CHEW PO ×2 (10:39→17:25)
[2023-12-27] MEDS: Meloxicam 7.5 MG Tablet PO ×2 (10:40→17:25)
[2023-12-27] MEDS: Doxycycline 100 MG CAPSULE PO ×2 (10:41→21:56)
[2023-12-27] MEDS: Lisinopril 10 MG Tablet PO (10:41)
[2023-12-27] MEDS: Cholecalciferol (VIT D3) 25 MCG TABLET (1,000 UNITS) 50 MCG PO (10:41)
[2023-12-27] MEDS: Senna/Docusate Sodium 1 Tablet 2 TABLET PO (10:41)
[2023-12-27] MEDS: Cephalexin 500 MG Capsule PO ×2 (10:41→21:56)
[2023-12-27] MEDS: Famotidine 20 MG Tablet PO (10:41)
[2023-12-27 11:38] VITALS: BMI 31.2
[2023-12-27 13:24] VITALS: BP 167/74; PULSE 70; RESP 16; TEMP 36.8; O2SAT 97
[2023-12-27] MEDS: MELATONIN 3 MG TABLET PO (21:56)
[2023-12-27] MEDS: Atorvastatin Calcium 10 MG Tablet PO (21:57)
[2023-12-28] MEDS: Acetaminophen 500 MG Tablet 1000 MG PO ×3 (05:18→18:40)
[2023-12-28] MEDS: traMADol 50 MG Tablet PO (08:40)
[2023-12-28] MEDS: Aspirin 81 MG TAB.CHEW PO ×2 (08:41→17:43)
[2023-12-28] MEDS: Meloxicam 7.5 MG Tablet PO ×2 (08:41→17:43)
[2023-12-28] MEDS: Cephalexin 500 MG Capsule PO ×2 (08:43→21:13)
[2023-12-28] MEDS: Famotidine 20 MG Tablet PO (08:43)
[2023-12-28] MEDS: Doxycycline 100 MG CAPSULE PO ×2 (08:43→21:14)
[2023-12-28] MEDS: Lisinopril 10 MG Tablet PO (08:44)
[2023-12-28] MEDS: Cholecalciferol (VIT D3) 25 MCG TABLET (1,000 UNITS) 50 MCG PO (08:44)
[2023-12-28 08:50] VITALS: BP 132/65; PULSE 70
--- NOTE | 2023-12-28 08:50 | NURSING ---
PT VERY AGITATED TODAY. STATED WHEN REGGIE I GOING TO SEE THE DR? I HAVE NOT SEEN HIM YET SENSE I BEEN ON THIS FLOOR. THIS NURSE EXPLAINED TO PT THAT WAS IN TO SEE HER WHEN SHE FIRST CAME AND MAY NOT REMEMBER DUE TO HER CONFUSION AT ADMISSION. PT STATED SHE DONT REMEMBER. THIS NURSE STATED TO PT THAT I CAN LET KNOW SHE WOULD LIKE TO SEE HIM. PT STATED NO IF HE WANTED TO TALK TO ME HE WOULD HAVE ALREADY BEEN IN. AGAIN I STATED TO PT SHE MAY NOT REMEMBER DO TO HER CONFUSION AT ADMIT AND DR. MUNGUIA WOULD BE MORE THEN HAPPY TO COME AND TALK TO HER. PT STATED NO. ASKED PT IF SHE WAS SURE PT STATED I SAID NO. STATED TO PT IF SHE CHANGES HER MIND TO LET US KNOW. THIS NURSE WILL LET KNOW. RN AWARE
--- NOTE | 2023-12-28 10:53 | CASEMGMT ---
Social Work IDT met with patient and dtr for care plan meeting. Discussed patient's progress in PT/OT/SN. Educated to [facility] insurance with NRD 12/27 and continued stay is not guaranteed with each review. Noted pt is CGA and needing Alba for bed mobility, which is not Tanna. Also noted pt is having some impulsivity and forgetfulness. Inquired if dtrs can provide assistance at home. Both dtrs do not live locally but do plan on staying with pt a few days. SW confirmed that would be recommended for the transition home and for dtrs to also determine if pt has returned to baseline cognitively. Dtr agreed. SW to coordinate skilled HHC and any DME needs at DC. SW will continue to follow for DC planning. ISAAC GautamW
--- NOTE | 2023-12-28 11:39 | NURSING ---
WENT IN TO PUT PT TEDHOSE ON AND PT REFUSED. DIRECTOR RADIO NEWS AND FAMILY IN ROOM.
[2023-12-28 12:48] VITALS: BP 136/64; PULSE 68; RESP 18; TEMP 36; O2SAT 98
--- NOTE | 2023-12-28 15:23 | CHAPLAIN ---
Type of Pastoral Visit _x__ Initial Visit ___ Follow-up Visit ___ On-call Visit ___ General Patient Visit ___ Spiritual Assessment ___ Family Conference ___ Bereavement ___ Rapid Response ___ Code Blue ___ Other (describe below) Pastoral Care Referral From _x__ Patient ___ Family ___ Nurse ___ Physician ___ Product Development Ecologist ___ Bulk Delivery Driver ___ Other (describe below) Sacrament/Intervention _x__ Active listening ___ Anointing ___ Cheondoism ___ Bereavement ___ Communion _x__ Pauly exploration ___ _x__ Life review _x__ Prayer ___ Reconciliation ___ Sacrament of Sick ___ Supportive presence ___ Wedding ___ Other (describe below) Pastoral Comments patient had a family member visiting but welcomed the visit of this senior chemical engineer as well; pt talks about her surgery and prognosis; pt has a plan forming for the future; pt gives some life review and speaks of her jainism and pauly community; pt welcomes prayer and presence; no further needs evident or shared
[2023-12-28] MEDS: Ensure Clear 120 ML Liquid PO (17:42)
[2023-12-28 21:00] VITALS: PULSE 72; RESP 16; O2SAT 97
[2023-12-28] MEDS: Atorvastatin Calcium 10 MG Tablet PO (21:13)
[2023-12-28] MEDS: MELATONIN 3 MG TABLET PO (21:14)
[2023-12-29] MEDS: Acetaminophen 500 MG Tablet 1000 MG PO ×4 (00:27→21:37)
[2023-12-29] MEDS: Ensure Clear 120 ML Liquid PO ×2 (08:52→16:38)
[2023-12-29] MEDS: Aspirin 81 MG TAB.CHEW PO ×2 (08:57→16:39)
[2023-12-29] MEDS: Meloxicam 7.5 MG Tablet PO ×2 (08:57→16:39)
[2023-12-29] MEDS: Famotidine 20 MG Tablet PO (08:58)
[2023-12-29] MEDS: Doxycycline 100 MG CAPSULE PO ×2 (08:58→21:37)
[2023-12-29] MEDS: Cephalexin 500 MG Capsule PO ×2 (08:58→21:37)
[2023-12-29] MEDS: Cholecalciferol (VIT D3) 25 MCG TABLET (1,000 UNITS) 50 MCG PO (08:58)
[2023-12-29] MEDS: Lisinopril 10 MG Tablet PO (08:59)
[2023-12-29 09:02] VITALS: BP 152/83; PULSE 81
--- NOTE | 2023-12-29 09:12 | NURSING ---
PT REFUSED TEDHOSE. EDUCATED PT ON THE PROS AND CONS OF WEARING THEM TO NOT WEARING THEM. ALSO OFFERED THERESE WRAPS. PT STILL REFUSED.
[2023-12-29 10:15] VITALS: PULSE 79; RESP 18; O2SAT 96
[2023-12-29 13:31] VITALS: BP 178/74; PULSE 79; RESP 16; TEMP 36.8; O2SAT 98
[2023-12-29] MEDS: MELATONIN 3 MG TABLET PO (21:37)
[2023-12-29] MEDS: Atorvastatin Calcium 10 MG Tablet PO (21:37)
[2023-12-30] MEDS: Acetaminophen 500 MG Tablet 1000 MG PO ×3 (05:12→16:20)
[2023-12-30 09:00] VITALS: BP 134/85; PULSE 75
[2023-12-30] MEDS: traMADol 50 MG Tablet PO ×2 (09:00→15:26)
[2023-12-30] MEDS: Aspirin 81 MG TAB.CHEW PO ×2 (09:00→16:20)
[2023-12-30] MEDS: hydrALAZINE 10 MG Tablet PO (09:00)
[2023-12-30] MEDS: Cholecalciferol (VIT D3) 25 MCG TABLET (1,000 UNITS) 50 MCG PO (09:00)
[2023-12-30] MEDS: Doxycycline 100 MG CAPSULE PO (09:01)
[2023-12-30] MEDS: Famotidine 20 MG Tablet PO (09:01)
[2023-12-30] MEDS: Losartan Potassium 100 MG Tablet PO (09:01)
[2023-12-30] MEDS: Meloxicam 7.5 MG Tablet PO ×2 (09:01→16:20)
[2023-12-30] MEDS: Cephalexin 500 MG Capsule PO ×2 (09:01→21:29)
--- NOTE | 2023-12-30 09:05 | NURSING ---
Rod Buster Helper Note; MDS for 12/30/2023 Complete
[2023-12-30] MEDS: Ensure Clear 120 ML Liquid PO (11:30)
[2023-12-30 15:41] VITALS: BP 144/66; PULSE 70; RESP 16; TEMP 36.7; O2SAT 96
--- NOTE | 2023-12-30 16:23 | CASEMGMT ---
Social Work BIMS () and PHQ-2 () completed for MDS assessment. Nicki Gillette URBAN REDEVELOPMENT SPECIALIST COMMUNICATIONS DEPARTMENT HEAD
--- NOTE | 2023-12-30 16:27 | CASEMGMT ---
Social Work Pt requesting to DC home. SW spoke with pt and LASER MACHINE OPERATOR on progress and DC plans. All in agreement if dtrs can assist with pt's transition home, pt can DC home next week. SW offered to contact dtr to determine assistance and date of DC. Pt agreed. SW spoke with dtr, Flower, about DC plans. Dtr confirmed she and her sister will assist pt, but still want to ensure pt will be safe at home. SW offered to set DC for 01/04. Dtr in agreement. SW offered to provide dtr or pt list of skilled C agencies with quality and resource data, but dtr declined and prefers to use [facility]. Dtr confirmed no DME needs. Dtr to transport at DC. SW spoke with pt to update on DC 01/04 with [facility] and no DME. Pt confirmed and appreciative. SW phoned referral to [facility] for PT/OT. Plan: DC home 01/04, [facility] PT/OT ISAAC GautamW
[2023-12-30] MEDS: Atorvastatin Calcium 10 MG Tablet PO (21:29)
[2023-12-30] MEDS: MELATONIN 10 MG TABLET PO (21:29)
[2023-12-31] MEDS: Acetaminophen 500 MG Tablet 1000 MG PO ×4 (00:16→17:57)
[2023-12-31 08:09] LABS: Absolute Lymphocyte Count 1.76 X10^3/uL (0.83-4.51); Basophil# 0.05 X10^3/uL; Basophil% 0.9 % (0-1); Eosinophil# 0.29 X10^3/uL; Eosinophils% 5.1 % (0-5); Hematocrit 33.2 % (37-47); Hemoglobin 10.6 g/dL (12.0-15.0); Lymphocyte # 1.76 X10^3/ul (0.83-4.51); Mean Corp Hgb Conc 31.9 g/dL (32-36); Mean Corpuscular Hgb 28.4 pg (27.0-32.0); Mean Platelet Vol. 10.2 fl (6.2-12.0); Monocyte# 0.52 X10^3/uL; Monocyte% 9.2 % (0-10); NRBC Flagged by Analyzer 0 % (0-5); Neutrophil # 3.03 X10^3/uL (2.7-7.7); Neutrophil % 53.3 % (47-70); Platelet Count 216 K/mm3 (150-450); RBC Distribution Width CV 14.1 % (11.6-14.6); RBC Distribution Width SD 45.7 fl (35.1-43.9); Red Blood Count 3.73 M/mm3 (4.2-5.4); White Blood Count 5.7 K/mm3 (4.4-11.0)
[2023-12-31 08:26] LABS: Anion Gap 5 (5-15); BUN 24 mg/dL (7-18); Calcium,Total 9.4 mg/dL (8.5-10.1); Chloride 109 mmol/L (98-107); EST Glomerular Filtration Rate 73 mL/min (>60); Est Glom Filt Rate - Afr Amer 88 mL/min (>60); Estimated Creatinine Clearance 57.44 ml/min; Glucose 102 mg/dL (74-106); Potassium 4.3 mmol/L (3.5-5.1); Sodium Level 139 mmol/L (136-145)
[2023-12-31] MEDS: Cholecalciferol (VIT D3) 25 MCG TABLET (1,000 UNITS) 50 MCG PO (10:45)
[2023-12-31] MEDS: Aspirin 81 MG TAB.CHEW PO ×2 (11:44→17:57)
[2023-12-31] MEDS: Meloxicam 7.5 MG Tablet PO ×2 (11:45→17:58)
[2023-12-31] MEDS: Senna/Docusate Sodium 1 Tablet 2 TABLET PO (11:45)
[2023-12-31] MEDS: Famotidine 20 MG Tablet PO (11:46)
[2023-12-31] MEDS: Losartan Potassium 100 MG Tablet PO (11:46)
[2023-12-31] MEDS: Tuberculin,Purif.prot.deriv. 50 TU/ML Vial 0.100000000000000006 ML ID (12:38)
[2023-12-31] MEDS: traMADol 50 MG Tablet PO (13:33)
[2023-12-31 14:36] VITALS: BP 159/73; PULSE 72; RESP 16; TEMP 36.9; O2SAT 98
[2023-12-31] MEDS: MELATONIN 10 MG TABLET PO (23:01)
[2023-12-31] MEDS: Atorvastatin Calcium 10 MG Tablet PO (23:02)
[2024-01-01] MEDS: Acetaminophen 500 MG Tablet 1000 MG PO ×4 (00:44→17:34)
[2024-01-01] MEDS: traMADol 50 MG Tablet PO (01:26)
[2024-01-01] MEDS: Ensure Clear 120 ML Liquid PO ×3 (09:00→17:33)
[2024-01-01] MEDS: Aspirin 81 MG TAB.CHEW PO ×2 (09:01→17:33)
[2024-01-01] MEDS: Meloxicam 7.5 MG Tablet PO ×2 (09:02→17:33)
[2024-01-01] MEDS: Famotidine 20 MG Tablet PO (09:02)
[2024-01-01] MEDS: Senna/Docusate Sodium 1 Tablet 2 TABLET PO (09:03)
[2024-01-01] MEDS: Losartan Potassium 100 MG Tablet PO (09:03)
[2024-01-01] MEDS: Cholecalciferol (VIT D3) 25 MCG TABLET (1,000 UNITS) 50 MCG PO (09:03)
[2024-01-01 13:45] VITALS: BP 148/79; PULSE 75; RESP 18; TEMP 36.3; O2SAT 99
[2024-01-01] MEDS: Atorvastatin Calcium 10 MG Tablet PO (22:49)
[2024-01-01] MEDS: MELATONIN 10 MG TABLET PO (22:49)
[2024-01-02] MEDS: Acetaminophen 500 MG Tablet 1000 MG PO ×5 (00:48→23:58)
[2024-01-02] MEDS: traMADol 50 MG Tablet PO ×2 (00:48→23:57)
--- NOTE | 2024-01-02 07:33 | NURSING ---
Left vm for Nicki GRANT, to update on confusion noted per staff and may benefit from discussing some long-term planning options w/ daughter(s). Pt informed this nurse her daughter(s) will be staying w/ pt temporarily but is unsure of the duration of their assistance.
--- NOTE | 2024-01-02 07:56 | DS.PCM_ITS ---
Providers Date of Admission: 12/23/23 Primary Care Physician: Dr. Shant Sommers MD Reason For Visit: LEFT TOTAL KNEE ARTHROPLASTY WITH R Diagnosis Discharge Diagnosis (1) Debility: Status: Acute Code(s): R53.81 - Other malaise (2) Status post total left knee replacement: Status: Acute Code(s): Z96.652 - Presence of left artificial knee joint (3) Postoperative anemia: Status: Acute Code(s): D64.9 - Anemia, unspecified (4) Cellulitis of left knee: Status: Acute Code(s): L03.116 - Cellulitis of left lower limb (5) Edema of left lower extremity: Status: Acute Code(s): R60.0 - Localized edema (6) Acute encephalopathy: Status: Acute Code(s): G93.40 - Encephalopathy, unspecified (7) Hypertension: Status: Chronic Code(s): I10 - Essential (primary) hypertension (8) Hyperlipidemia: Status: Acute Code(s): E78.5 - Hyperlipidemia, unspecified (9) Carotid artery stenosis: Status: Acute Code(s): I65.29 - Occlusion and stenosis of unspecified carotid artery (10) Osteopenia: Status: Acute Code(s): M85.80 - Other specified disorders of bone density and structure, unspecified site Plan 82 year old female with below past medical history hospitalized for left TKA 12/21/[address] Guzman, postoperative course complicated by encephalopathy, anemia, admitted to TCU with debility, here for rehabilitation, strengthening, prior to discharge home alone. * Debility - PT/OT. * Pain - Tylenol 1000mg q8, Meloxicam 7.5mg bidcm, Oxycodone 5-10mg q4 prn * Bowel - senna/colace 2 tablets bid, Magnesium citrate 300ml daily prn. * Adult immunization - Administer pneumonia vaccine, covid vaccine, flu vaccine as appropriate. * DVT prophylaxis - Aspirin 81mg bidcm thru 01/18/2024. * Acute encephalopathy - cbcd, bmp, ua, c+s, covid-19, respiratory panel, CXR, KUB. * Hyperlipidemia - Atorvastatin 10mg qhs. * Cellulitis left knee - Keflex 500mg q12 thru 12/30/2023, Doxycycline 100mg bid thru 12/30/2023. * Left lower extremity edema - Doppler ultrasound left lower extremity. * Vitamin D deficiency - D3 25mcg daily. * Nutrition - Ensure Surgery 237ml tidcm. * GERD - Famotidine 20mg daily. * Hypertension - Lisinopril 10mg daily, blood pressure 180 systolic, Hydralazine 25mg po x 1 dose given. * Insomnia - Melatonin 3mg qhs. Medications at Discharge Home Medications lovastatin 40 mg tablet 40 mg PO DAILY Cholesterol 04/29/20 cholecalciferol (vitamin D3) 50 mcg (2,000 unit) capsule 50 mcg PO DAILY health maintenance 06/23/22 lisinopril 10 mg tablet 10 mg PO DAILY BP 06/23/22 acetaminophen 500 mg tablet 1,000 mg (2 x 500 mg) PO Q8 pain #0 tabs 12/23/23 aspirin 81 mg chewable tablet 81 mg PO BIDCM heart #0 tabs 12/23/23 famotidine 20 mg tablet 20 mg PO DAILY Acid #0 tabs 12/23/23 melatonin 3 mg tablet 3 mg PO QHS sleep #0 tabs 12/23/23 meloxicam 7.5 mg tablet 7.5 mg PO BID pain #0 tabs 12/23/23 nut.tx.comp. immune systm,reg 0.08 gram-1.4 kcal/mL oral liquid (Ensure Surgery) 237 ml PO TIDCM health maintenance #0 mL 12/23/23 oxycodone 5 mg tablet 5 - 10 mg (1 - 2 x 5 mg) PO Q4H PRN PRN Pain Score 4-10 5 days #42 tabs 12/23/23 sennosides 8.6 mg-docusate sodium 50 mg tablet (Stool Softener-Stimulant Laxative) 2 tab PO BID constipation 5 days #20 tabs 12/23/23 Hospital Course Operations total knee replacement (Left.) Procedures None Summary of Care Provided Minutes Spent on Discharge: 35 Hospital Course: 82 year old female with below past medical history hospitalized for left TKA 12/21/[address] Guzman, postoperative course complicated by encephalopathy, anemia, admitted to TCU with debility, here for rehabilitation, strengthening, prior to discharge home alone. Discharge home 01/04/2024, [facility] PT/OT. Physical Exam Const alert General Appearance: cooperative HEENT normocephalic Eyes PERRL and EOMs intact bilaterally Neck supple, no JVD and no carotid bruits Resp normal respiratory effort, normal air movement and clear to auscultation bilaterally Cardio regular rate and regular rhythm GI normal to inspection, nondistended, normoactive bowel sounds, non-tender and n on-distended Extremity normal capillary refill General Extremity: Negative for edema Skin no rashes or lesions noted General Skin Exam: no breakdown Psych affect normal Appearance: appropriate Weight / BMI Weight Weight: 85.23 kg Body Mass Index (BMI) 31.2 ABG / Lab / Microbiology Data 12/31/23 07:16 12/31/23 07:16 Microbiology: Microbiology 12/24/23 12:30 Urine, Catheterized Urine Culture - Final Culture exhibits no growth. 12/24/23 05:00 Mucosa - Nasopharyngeal Respiratory Panel (PCR) - Final 12/23/23 14:00 Nasal Secretion SARS-CoV-2 Antigen (Rapid) - Final D/C Instructions Discharge Diet: No restrictions Discharge Activity: Return to Normal Activity, May Shower and Use Walker Weight Bearing Status: Weight bearing as tolerated Call your doctor if you observe: Fever of 101 or Higher, Inability to urinate, Inability to have a bowel movement, Shortness of breath, Dizziness, Fainting spells, Swelling in the ankles, Chest pain and Uncontrolled pain Additional Instructions: Discharge home 01/04/2024, [facility] PT/OT. Please Follow Up With: Michael Carcamo PA-C When: As scheduled. Meaningful Use Info Meaningful Use Diagnoses (Choose all that apply): None applicable Discharge Plan Admission Admit Date/Time: 12/23/23 12:41 Primary Reason for Your Visit: Debility. Attending Provider: Nima Harper Chi Primary Care Provider: Shant Sommers Instructions Additional Instructions / Restrictions: Discharge home 01/04/2024, [facility] PT/OT. Discharge Orders/Prescriptions Prescriptions: No Action lisinopril 10 mg tablet 10 mg PO DAILY cholecalciferol (vitamin D3) 50 mcg (2,000 unit) capsule 50 mcg PO DAILY lovastatin 40 MG tablet 40 mg PO DAILY melatonin 3 mg Tablet 3 mg PO QHS Qty: 0 0RF acetaminophen 500 mg Tablet 1,000 mg PO Q8 Qty: 0 0RF meloxicam 7.5 mg Tablet 7.5 mg PO BID Qty: 0 0RF famotidine 20 mg Tablet 20 mg PO DAILY Qty: 0 0RF aspirin 81 mg Tablet,Chewable 81 mg PO BIDCM Qty: 0 0RF oxycodone 5 mg Tablet 5 - 10 mg PO Q4H PRN PRN (Reason: Pain Score 4-10) 5 Days Qty: 42 0RF Ensure Surgery 0.08-1.4 gram-kcal/mL Liquid 237 ml PO TIDCM Qty: 0 0RF sennosides-docusate sodium [Stool Softener-Stimulant Laxat] 8.6-50 mg Tablet 2 tab PO BID 5 Days Qty: 20 0RF Referrals / Follow Up: Shant Sommers MD [Primary Care Provider] - (Please make appt ulysses as pt needs seen prior to [facility]. ) Disposition Disposition (needs filled in before D/C Order can be placed): Home Health Service
--- NOTE | 2024-01-02 07:56 | PCM.DC.SUM ---
Providers Date of Admission: 12/23/23 Primary Care Physician: Dr. Shant Sommers MD Reason For Visit: LEFT TOTAL KNEE ARTHROPLASTY WITH R Diagnosis Discharge Diagnosis (1) Debility: Status: Acute Code(s): R53.81 - Other malaise (2) Status post total left knee replacement: Status: Acute Code(s): Z96.652 - Presence of left artificial knee joint (3) Postoperative anemia: Status: Acute Code(s): D64.9 - Anemia, unspecified (4) Cellulitis of left knee: Status: Acute Code(s): L03.116 - Cellulitis of left lower limb (5) Edema of left lower extremity: Status: Acute Code(s): R60.0 - Localized edema (6) Acute encephalopathy: Status: Acute Code(s): G93.40 - Encephalopathy, unspecified (7) Hypertension: Status: Chronic Code(s): I10 - Essential (primary) hypertension (8) Hyperlipidemia: Status: Acute Code(s): E78.5 - Hyperlipidemia, unspecified (9) Carotid artery stenosis: Status: Acute Code(s): I65.29 - Occlusion and stenosis of unspecified carotid artery (10) Osteopenia: Status: Acute Code(s): M85.80 - Other specified disorders of bone density and structure, unspecified site Plan 82 year old female with below past medical history hospitalized for left TKA 12/21/[address] Guzman, postoperative course complicated by encephalopathy, anemia, admitted to TCU with debility, here for rehabilitation, strengthening, prior to discharge home alone. Debility - PT/OT. Pain - Tylenol 1000mg q8, Meloxicam 7.5mg bidcm, Oxycodone 5-10mg q4 prn Bowel - senna/colace 2 tablets bid, Magnesium citrate 300ml daily prn. Adult immunization - Administer pneumonia vaccine, covid vaccine, flu vaccine as appropriate. DVT prophylaxis - Aspirin 81mg bidcm thru 01/18/2024. Acute encephalopathy - cbcd, bmp, ua, c+s, covid-19, respiratory panel, CXR, KUB. Hyperlipidemia - Atorvastatin 10mg qhs. Cellulitis left knee - Keflex 500mg q12 thru 12/30/2023, Doxycycline 100mg bid thru 12/30/2023. Left lower extremity edema - Doppler ultrasound left lower extremity. Vitamin D deficiency - D3 25mcg daily. Nutrition - Ensure Surgery 237ml tidcm. GERD - Famotidine 20mg daily. Hypertension - Lisinopril 10mg daily, blood pressure 180 systolic, Hydralazine 25mg po x 1 dose given. Insomnia - Melatonin 3mg qhs. Medications at Discharge Home Medications lovastatin 40 mg tablet 40 mg PO DAILY Cholesterol 04/29/20 cholecalciferol (vitamin D3) 50 mcg (2,000 unit) capsule 50 mcg PO DAILY health maintenance 06/23/22 acetaminophen 500 mg tablet 1,000 mg (2 x 500 mg) PO Q8 pain #0 tabs 12/23/23 famotidine 20 mg tablet 20 mg PO DAILY Acid #0 tabs 12/23/23 acetaminophen 500 mg tablet 1,000 mg (2 x 500 mg) PO Q6 #0 tabs 01/02/24 aspirin 81 mg chewable tablet 81 mg PO BIDCM 14 days #0 tabs 01/02/24 losartan 100 mg tablet 100 mg PO DAILY 30 days #30 tabs 01/02/24 melatonin 10 mg sublingual tablet 10 mg PO QHS #0 tabs 01/02/24 meloxicam 7.5 mg tablet 7.5 mg PO BIDCM 30 days #60 tabs 01/02/24 tramadol 50 mg tablet 50 mg PO Q6H PRN PRN Pain Score 1-10 7 days #28 tabs 01/02/24 Hospital Course Operations total knee replacement (Left.) Procedures None Summary of Care Provided Minutes Spent on Discharge: 35 Hospital Course: 82 year old female with below past medical history hospitalized for left TKA 12/21/[address] Guzman, postoperative course complicated by encephalopathy, anemia, admitted to TCU with debility, here for rehabilitation, strengthening, prior to discharge home alone. Discharge home 01/04/2024, [facility] PT/OT. Physical Exam Const alert General Appearance: cooperative HEENT normocephalic Eyes PERRL and EOMs intact bilaterally Neck supple, no JVD and no carotid bruits Resp normal respiratory effort, normal air movement and clear to auscultation bilaterally Cardio regular rate and regular rhythm GI normal to inspection, nondistended, normoactive bowel sounds, non-tender and non-distended Extremity normal capillary refill General Extremity: Negative for edema Skin no rashes or lesions noted General Skin Exam: no breakdown Psych affect normal Appearance: appropriate Weight / BMI Weight Weight: 85.23 kg Body Mass Index (BMI) 31.2 ABG / Lab / Microbiology Data 12/31/23 07:16 12/31/23 07:16 Microbiology: Microbiology 12/24/23 12:30 Urine, Catheterized Urine Culture - Final Culture exhibits no growth. 12/24/23 05:00 Mucosa - Nasopharyngeal Respiratory Panel (PCR) - Final 12/23/23 14:00 Nasal Secretion SARS-CoV-2 Antigen (Rapid) - Final D/C Instructions Discharge Diet: No restrictions Discharge Activity: Return to Normal Activity, May Shower and Use Walker Weight Bearing Status: Weight bearing as tolerated Call your doctor if you observe: Fever of 101 or Higher, Inability to urinate, Inability to have a bowel movement, Shortness of breath, Dizziness, Fainting spells, Swelling in the ankles, Chest pain and Uncontrolled pain Additional Instructions: Discharge home 01/04/2024, [facility] PT/OT. Please Follow Up With: Michael Carcamo PA-C When: As scheduled. Meaningful Use Info Meaningful Use Diagnoses (Choose all that apply): None applicable Discharge Plan Admission Admit Date/Time: 12/23/23 12:41 Primary Reason for Your Visit: Debility. Attending Provider: Nima Harper Chi Primary Care Provider: Shant Sommers Instructions Additional Instructions / Restrictions: Discharge home 01/04/2024, [facility] PT/OT. Discharge Orders/Prescriptions Prescriptions: New acetaminophen 500 mg Tablet 1,000 mg PO Q6 Qty: 0 0RF tramadol 50 mg Tablet 50 mg PO Q6H PRN PRN (Reason: Pain Score 1-10) 7 Days Qty: 28 0RF meloxicam 7.5 mg Tablet 7.5 mg PO BIDCM 30 Days Qty: 60 0RF aspirin 81 mg Tablet,Chewable 81 mg PO BIDCM 14 Days Qty: 0 0RF losartan 100 mg Tablet 100 mg PO DAILY 30 Days Qty: 30 0RF melatonin 10 mg Tablet, Sublingual 10 mg PO QHS Qty: 0 0RF Continued cholecalciferol (vitamin D3) 50 mcg (2,000 unit) capsule 50 mcg PO DAILY lovastatin 40 MG tablet 40 mg PO DAILY famotidine 20 mg Tablet 20 mg PO DAILY Qty: 0 0RF Discontinued lisinopril 10 mg tablet 10 mg PO DAILY melatonin 3 mg Tablet 3 mg PO QHS Qty: 0 0RF meloxicam 7.5 mg Tablet 7.5 mg PO BID Qty: 0 0RF aspirin 81 mg Tablet,Chewable 81 mg PO BIDCM Qty: 0 0RF oxycodone 5 mg Tablet 5 - 10 mg PO Q4H PRN PRN (Reason: Pain Score 4-10) 5 Days Qty: 42 0RF Ensure Surgery 0.08-1.4 gram-kcal/mL Liquid 237 ml PO TIDCM Qty: 0 0RF sennosides-docusate sodium [Stool Softener-Stimulant Laxat] 8.6-50 mg Tablet 2 tab PO BID 5 Days Qty: 20 0RF No Action acetaminophen 500 mg Tablet 1,000 mg PO Q8 Qty: 0 0RF Referrals / Follow Up: Shant Sommers MD [Primary Care Provider] - (Please make appt ulysses as pt needs seen prior to [facility] ) Disposition Disposition (needs filled in before D/C Order can be placed): Home Health Service
[2024-01-02] MEDS: Ensure Clear 120 ML Liquid PO (07:58)
[2024-01-02] MEDS: Meloxicam 7.5 MG Tablet PO ×2 (07:59→16:33)
[2024-01-02] MEDS: Aspirin 81 MG TAB.CHEW PO ×2 (07:59→16:33)
[2024-01-02] MEDS: Famotidine 20 MG Tablet PO (09:45)
[2024-01-02] MEDS: Senna/Docusate Sodium 1 Tablet 2 TABLET PO ×2 (09:46→20:22)
[2024-01-02] MEDS: Cholecalciferol (VIT D3) 25 MCG TABLET (1,000 UNITS) 50 MCG PO (09:46)
[2024-01-02] MEDS: Losartan Potassium 100 MG Tablet PO (11:21)
[2024-01-02 13:39] VITALS: BP 144/61; PULSE 79; RESP 17; TEMP 36.7; O2SAT 98
[2024-01-02] MEDS: MELATONIN 10 MG TABLET PO (20:22)
[2024-01-02] MEDS: Atorvastatin Calcium 10 MG Tablet PO (20:22)
[2024-01-03] MEDS: Acetaminophen 500 MG Tablet 1000 MG PO ×3 (05:54→17:11)
[2024-01-03] MEDS: Aspirin 81 MG TAB.CHEW PO ×2 (08:47→17:11)
[2024-01-03] MEDS: Losartan Potassium 100 MG Tablet PO (08:47)
[2024-01-03] MEDS: Meloxicam 7.5 MG Tablet PO ×2 (08:47→17:11)
[2024-01-03] MEDS: Senna/Docusate Sodium 1 Tablet 2 TABLET PO (08:48)
[2024-01-03] MEDS: Cholecalciferol (VIT D3) 25 MCG TABLET (1,000 UNITS) 50 MCG PO (08:48)
[2024-01-03] MEDS: Famotidine 20 MG Tablet PO (08:48)
[2024-01-03 11:28] VITALS: BMI 30.9
[2024-01-03 13:15] VITALS: BMI 31.2
[2024-01-03 13:54] VITALS: BP 152/65; PULSE 82; RESP 16; TEMP 36.4; O2SAT 100
[2024-01-03] MEDS: Atorvastatin Calcium 10 MG Tablet PO (22:27)
[2024-01-03] MEDS: MELATONIN 10 MG TABLET PO (22:28)
[2024-01-04] MEDS: Acetaminophen 500 MG Tablet 1000 MG PO ×2 (00:25→05:45)
[2024-01-04 05:50] VITALS: PULSE 89; RESP 16; O2SAT 97
[2024-01-04 08:00] VITALS: BP 146/82; PULSE 82; RESP 16; TEMP 36.8; O2SAT 96
[2024-01-04 08:37] VITALS: BP 146/82; PULSE 82; RESP 15; TEMP 36.8; O2SAT 96
[2024-01-04] MEDS: Aspirin 81 MG TAB.CHEW PO (09:00)
[2024-01-04] MEDS: Meloxicam 7.5 MG Tablet PO (09:00)
[2024-01-04] MEDS: Famotidine 20 MG Tablet PO (09:01)
[2024-01-04] MEDS: Losartan Potassium 100 MG Tablet PO (09:01)
[2024-01-04] MEDS: Senna/Docusate Sodium 1 Tablet 2 TABLET PO (09:01)
[2024-01-04] MEDS: Cholecalciferol (VIT D3) 25 MCG TABLET (1,000 UNITS) 50 MCG PO (09:02)
--- NOTE | 2024-01-04 13:42 | MDS.RN ---
Information for the mds was obtained from review of the clinical record, interview of resident, staff, and direct observation of resident's care.
--- NOTE | 2024-01-04 14:10 | CASEMGMT ---
Social Work BIMS () and PHQ-2 () completed for MDS assessment. Nicki Gillette MSW CLINICAL INSTRUCTOR
== END 2024-01-04 11:00 | disposition home health service (06) | DRG 560 ==
PROVIDERS: Admitting Provider Family Medicine Geriatric Medicine; PCP Family Medicine; Visit Provider Family Medicine Geriatric Medicine
DX: Z47.1 Aftercare following joint replacement surgery (principal); L03.116 Cellulitis of left lower limb; I10 Essential (primary) hypertension; I65.29 Occlusion and stenosis of unspecified carotid artery; E55.9 Vitamin D deficiency, unspecified; E78.00 Pure hypercholesterolemia, unspecified; K21.9 Gastro-esophageal reflux disease without esophagitis; Z87.891 Personal history of nicotine dependence; Z79.82 Long term (current) use of aspirin; Z96.652 Presence of left artificial knee joint; Z79.899 Other long term (current) drug therapy
CPT/HCPCS: 36415; 71046; 74018; 80048; 81001; 85025; 85027; 87086; 87633; 87811; 92610; 97110; 97116; 97162; 97166; 97530; 97535; 97802

== ENCOUNTER → 2023-12-23 | Outpatient (CLI) | payer MEDICARE, SELFPAY ==
--- NOTE | 2023-12-23 14:14 | VDLE_ITS ---
Reason For Study: Left leg swelling Procedure LEFT This is a venous duplex using B-mode, color GSV is normal. flow and spectral Doppler. CFV is compressible, spontaneous, phasic, Exam performed portable in patient room. competent, and demonstrates normal A preliminary report was called and/or faxed augmentation. to TCU RN. FV is compressible, spontaneous, phasic, competent and demonstrates normal augmentation. FV mid-distal visualized with color only, appear patent. Patient unable to tolerate compression. POP V is compressible, spontaneous, phasic, competent and demonstrates normal augmentation. T/P Trunk is compressible. PTV is compressible. LT PerV is compressible. VL/Venous Duplex US, Unilateral Interpretation Summary Deep veins of the left lower extremity are patent and compressible segmentally. There is no evidence of left lower extremity deep vein thrombosis. The left great saphenous vein danielle ears patent and compressible segmentally. Ordering Physician: Nima Harper Chi Referring Physician: Shant Sommers Performed By: Paula Tejada RVT
--- OUTSIDE RECORDS SUMMARY | 2023-12-23 15:09 | XMS RPT_ITS | CCD ---
Author Name Unknown Address [id number] [place] [address] Organization [facility] Care Team Providers Care Curtain Inspector Name Role Phone PADMAJA ABDI, ALEX Primary Care Physician [phone] ZAN ABDI, DR AREN Clemons Attending Sathya Rubio MD, ALEX [facility] Fredis ZULUAGA MD, DR AREN Clemons Attending Sathya Rubio MD, ALEX Primary [facility] Fredis ZULUAGA MD, DR AREN Clemons Attending Sathya Rubio MD, ALEX Primary [facility] Fredis GIANG MD, ALEX [facility] Fredis ZULUAGA MD, DR AREN Clemons Admitting Sathya Pedersen MD, DR AREN Clemons Referring Sathya Campbell, RICHARD [employer] Chula PAYAN, RICHARD Fier[employer] Attending Chula ZULUAGA MD, DR AREN Clemons Attending Sathya Rubio MD, ALEX [facility] Fredis ZULUAGA MD, DR AREN Clemons Attending Sathya Rubio MD, [facility] Unavailable Medications Current Medications Medication Drug [...] temperature 97.88 [degF] DR AREN ZULUAGA MD [facility] 09-21-2023 14:24-0500 Diastolic Blood Pressure Non-Invasive 56 mm[Hg] DR AREN ZULUAGA MD [facility] 09-21-2023 14:24-0500 Heart rate 66 /min DR AREN ZULUAGA MD [facility] 09-21-2023 14:24-0500 Respiratory rate 20 /min DR AREN ZULUAGA MD [facility] 09-21-2023 14:24-0500 Systolic Blood Pressure Non-Invasive 157 mm[Hg] DR AREN ZULUAGA MD [facility] 09-21-2023 11:05-0500 Diastolic Blood Pressure Non-Invasive 67 mm[Hg] DR AREN ZULUAGA MD [facility] 09-21-2023 11:05-0500 Systolic Blood Pressure Non-Invasive 158 mm[Hg] DR AREN ZULUAGA MD [facility] 09-21-2023 10:31-0500 Body temperature 97.88 [degF] DR AREN ZULUAGA MD [facility] 09-21-2023 10:31-0500 Diastolic Blood Pressure Non-Invasive 100 mm[Hg] DR AREN ZULUAGA MD [facility] 09-21-2023 10:31-0500 Heart rate 75 /min DR AREN ZULUAGA MD [facility] 09-21-2023 10:31-0500 Respiratory rate 20 /min DR AREN ZULUAGA MD [facility] 09-21-2023 10:31-0500 Systolic Blood Pressure Non-Invasive 159 mm[Hg] DR AREN ZULUAGA MD [facility] 09-21-2023 07:14-0500 Body temperature 97.88 [degF] DR AREN ZULUAGA MD [facility] 09-21-2023 07:14-0500 Heart rate 68 /min DR AREN ZULUAGA MD [facility] 09-21-2023 07:14-0500 Respiratory rate 20 /min DR AREN ZULUAGA MD [facility] 09-20-2023 23:08-0500 Heart rate 67 /min DR AREN ZULUAGA MD [facility] 09-20-2023 14:22-0500 Body temperature 96.62 [degF] DR AREN ZULUAGA MD [facility] 09-20-2023 14:22-0500 Heart rate 58 /min DR AREN ZULUAGA MD [facility] 09-20-2023 13:47-0500 Body height 165.[address] AREN ZULUAGA MD [facility] 09-20-2023 13:47-0500 Body weight 87.[address] AREN ZULUAGA MD [facility] 09-20-2023 13:47-0500 Body weight 32.25 kg/m2 DR AREN ZULUAGA MD [facility] 09-20-2023 13:38-0500 Body temperature 96.62 [degF] DR AREN ZULUAGA MD [facility] 09-20-2023 13:38-0500 Heart rate 54 /min DR AREN ZULUAGA MD [facility] 09-20-2023 12:25-0500 Body temperature 97.16 [degF] DR AREN ZULUAGA MD [facility] 09-20-2023 12:20-0500 Respiratory Rate - Anes 21 br/min DR AREN ZULUAGA MD [facility] 09-20-2023 12:15-0500 Respiratory Rate - Anes 25 br/min DR AREN ZULUAGA MD [facility] 09-20-2023 12:10-0500 Respiratory Rate - Anes 26 br/min DR AREN ZULUAGA MD [facility] 09-20-2023 10:30-0500 Heart rate 59 /min DR AREN ZULUAGA MD [facility] 09-20-2023 08:52-0500 Body height 165.[address] AREN ZULUAGA MD [facility] 09-20-2023 08:52-0500 Body temperature 97.7 [degF] DR AREN ZULUAGA MD [facility] 09-20-2023 08:52-0500 Body weight 87.[address] AREN ZULUAGA MD [facility] 09-20-2023 08:52-0500 Heart rate 65 /min DR AREN ZULUAGA MD [facility] 08-26-2023 11:55-0400 Blood Pressure Cuff Size DR AREN ZULUAGA MD [facility] 08-26-2023 11:55-[address] AREN ZULUAGA MD [facility] 08-26-2023 11:55-[address] AREN Sol [facility] 08-26-2023 11:55-0400 Body height 165.[address] AREN ZULUAGA MD [facility] 08-26-2023 11:55-0400 Body weight 87.[address] AREN ZULUAGA MD [facility] 08-26-2023 11:55-0400 Body weight 32.25 kg/m2 DR AREN ZULUAGA MD [facility] 08-26-2023 11:55-0400 Diastolic Blood Pressure Non-Invasive [address] AREN ZULUAGA MD [facility] 08-26-2023 11:55-0400 Heart rate 64 /min DR AREN ZULUAGA MD [facility] 08-26-2023 11:55-0400 Systolic Blood Pressure Non-Invasive [address] AREN ZULUAGA MD [facility] Encounters Encounter Date Encounter Type Care Provider Facility Start: 11-03-[address] AREN ZULUAGA MD [facility] Start: 11-02-[address] AREN ZULUAGA MD [facility] Start: 09-20-2023 End: 09-21-2023 ambulatory ALEX GIANG MD Facility:[facility] Start: 09-20-2023 End: 09-21-[address] AREN ZULUAGA MD [facility] Start: 08-26-2023 End: 08-27-[address] AREN ZULUAGA MD Facility:[facility] Start: 08-26-2023 End: 08-26-[address] AREN ZULUAGA MD [facility] Start: 08-26-2023 End: 08-26-[address] AREN ZULUAGA MD [facility] Procedures Date Procedure Procedure Detail Performing Clinician Arthroscopy of knee DR TONIE ZULUAGA MD Immunizations Immunization Date Immunization Notes Care Provider [facility] 08-12-2023 influenza virus vaccine, unspecified formulation DR AREN ZULUAGA MD [facility] 08-12-2023 pneumococcal 20-gabby nt conjugate vaccine DR AREN ZULUAGA MD [facility] 05-24-2023 tetanus toxoid, redu annabelle diphtheria toxoid, and acellular pertussis vaccine, adsorbed DR AREN ZULUAGA MD [facility] 09-03-2022 influenza virus vaccine, unspecified formulation DR AREN ZULUAGA MD [facility] 08-31-2022 SARS-CoV-2 (CV19)mRNA-[id number] AREN ZULUAGA MD [facility] Payers Date Payer Category Payer Private Health Insurance [id number] 1940 Unknown [id number] [id number] 1940 Unknown [id number] [id number] [id number] 1940 Unknown [id number] 2.16.8 [id number] 1940 Unknown [id number] 2.16.8 [id number] 1940 Unknown [id number] 2.16.8 [id number] 1940 Unknown [id number] 2.16.8 [id number] Social History Date Type Detail Facility Start: 08-26-2023 Tobacco smoking status Never s moked tobacco (finding) [facility] Sex Assigned At Female [facility] Functional Status Date Assessment Result Facility 09-21-2023 Functional Status Mod I [facility] 09-21-2023 Functional Status 2 [facility] 09-21-2023 Functional Status Identified as high risk, Fall ID band on, Room located near nursing station, Bed alert on, Door open, Non-Slip footwear [facility] 09-21-2023 Functional Status [facility] 09-21-2023 Functional Status bilateral knee high applied/on [facility] 09-20-2023 Functional Status [facility] 09-20-2023 Functional Status [facility] 09-20-2023 Functional Status [facility] 09-20-2023 Functional Status Supervised [facility] 09-20-2023 Functional Status Single level home [facility] 09-20-2023 Functional Status [facility] 09-20-2023 Functional Status Maintained, More than 8 hours [facility] 08-26-2023 Functional Status Sensory Deficits None A [facility] Mental Status Date Assessment Result Facility 09-21-2023 Mental Status Orientation Asse ssment Oriented x 4 [facility] 09-21-2023 Mental Status Oriented x 4 [facility] 09-20-2023 Mental Status [facility] 09-20-2023 Mental Status [facility] Clinical Notes 04-30-2021 to 09-21-2023 Note Date & Type Note Facility 09-21-2023 Hospital Discharge instructions Patient Education 09/21/2023 13:06:09 Total Knee Replacement, Care After, Cwei-ya-Aped Total Knee Replacement, Care After This sheet [...] Follow these instructions at home: Medicines Take ytxf-wqt-zagrtpp and prescription medicines only as told by [...] keep your pee (urine) pale yellow. ?Take smyv-nux-zzjfwmc or prescription medicines. ?Eat foods that are [...] cannot use soap and water, use hand scratch polisher. ?Change your bandage as told by your [...] 01/15/2013 Document Revised: 03/03/2020 Document Reviewed: 06/07/2019 [employer] Patient Education 2020 [employer]. 09/21/2023 06:56:19 5 - [facility] Post-op Instruction 06/2017 (88879) [facility] Post-operative Instructions PLEASE FOLLOW [facility] POST-OP INSTRUCTIONS GIVEN WATCH FOR SIGNS OF INFECTION: call the office ([phone]) if experencing any of the following: (Usually [...] on your follow up instructions. Form: 338A (56575) R: 03/13 Follow Up Care 07/26/2023 08:02:18 With:[facility] Address: [address] [place] [id number] [phone] When:09/23/2023 13:00:00 Comments:This is your first physical therapy appointment. Follow-up as scheduled. With:NOEMI JOEL PA-C, Orthopedic Address: [facility] [address] [place] [phone]- When:10/03/2023 13:30:00 Comments:This is your post-op appointment. Follow-up as scheduled. [facility] 09-21-2023 Note Discharge Instructions Thank you for allowing [facility] to assist you with your healthcare needs. [...] your post-op appointment. Follow-up as scheduled. Where: [facility] [address] [place] [address] [place] [address]- Follow Up with [facility] When 09/23/2023 01:00 PM EST Why: This is your first physical therapy appointment. Follow-up as scheduled. Where: [address] [place] [address] [place] [address] [phone] The Following Treatments Have Been Ordered for [...] weeks postoperatively for DVT prophylaxis. Pickup at [facility] #[id number] New docusate-senna (Senokot S 50 mg-8.6 mg oral tablet) 2 tab(s) by mouth Two (2) times a day Duration: 3 Days Take until first bowel movement, then as needed Pickup at [facility] #[id number] New famotidine (Pepcid 20 mg oral tablet) 1 tab(s) by mouth Once a day Pickup at [facility] #[id number] New oxyCODONE (oxyCODONE 5 mg oral tablet ( IMMEDIATE release )) See instructions Status post total right knee replacement 1-2 tab(s) Oral q4h Pickup at [facility] #[id number] Changed acetaminophen (Tylenol) 1,000 Milligram by mouth [...] Once a day Pharmacy Information [id number]: [address] [place], [place] [id number] [phone] Please take this list to your next [...] may report side effects to FDA at 1-718-TFV-4803. What other drugs will affect docusate and senna? Other drugs may affect docusate and senna, including prescription and upjk-rvv-yjkkgyf medicines, vitamins, and herbal products. Tell your [...] to ensure that the information provided by [employer]. ('[employer]') is accurate, up-to-date, and complete, but no guarantee is made to that effect. Drug information contained herein may be time sensitive. [employer] information has been compiled for use by healthcare practitioners and consumers in the [place] and therefore [employer] does not warrant that uses outside of the [place] are appropriate, unless specifically indicated otherwise. [employer] drug information does not endorse drugs, diagnose patients or recommend therapy. [employer] drug information is an informational resource designed [...] effective or appropriate for any given patient. [employer] does not assume any responsibility for any aspect of healthcare administered with the aid of information [employer] provides. The information contained herein is not intended to cover all possible uses, directions, precautions, warnings, drug interactions, allergic reactions, or adverse effects. If you have questions about the drugs you are taking, check with your doctor, nurse or pharmacist. Copyright 7749-0295 [employer]. Version: 5.01. Revision Date: 06/13/2023. oxycodone (ox [...] The extended-release form of oxycodone is for zaxrmx-fio-pntpl treatment of pain and should not be [...] against the law. Stop taking all other vfxtwt-avv-pbxna opioid pain medicines when you start taking [...] may report side effects to FDA at 7-277-HWT-4299. What other drugs will affect oxycodone? You [...] may affect oxycodone. This includes prescription and savg-bta-hbnwyju medicines, vitamins, and herbal products. Not all [...] to ensure that the information provided by [employer]. ('[employer]') is accurate, up-to-date, and complete, but no guarantee is made to that effect. Drug information contained herein may be time sensitive. [employer] information has been compiled for use by healthcare practitioners and consumers in the [place] and therefore [employer] does not warrant that uses outside of the [place] are appropriate, unless specifically indicated otherwise. [employer] drug information does not endorse drugs, diagnose patients or recommend therapy. [employer] drug information is an informational resource designed [...] effective or appropriate for any given patient. [employer] does not assume any responsibility for any aspect of healthcare administered with the aid of information [employer] provides. The information contained herein is not intended to cover all possible uses, directions, precautions, warnings, drug interactions, allergic reactions, or adverse effects. If you have questions about the drugs you are taking, check with your doctor, nurse or pharmacist. Copyright 8412-0679 [employer]. Version: 16.. Revision Date: 06/10/2023. acetaminophen (oral) [...] may report side effects to FDA at 7-538-UQX-3709. What other drugs will affect acetaminophen? Other drugs may affect acetaminophen, including prescription and ioiv-vnz-mouplhj medicines, vitamins, and herbal products. Tell your [...] to ensure that the information provided by [employer]. ('[employer]') is accurate, up-to-date, and complete, but no guarantee is made to that effect. Drug information contained herein may be time sensitive. [employer] information has been compiled for use by healthcare practitioners and consumers in the [place] and therefore [employer] does not warrant that uses outside of the [place] are appropriate, unless specifically indicated otherwise. [employer] drug information does not endorse drugs, diagnose patients or recommend therapy. [employer] drug information is an informational resource designed [...] effective or appropriate for any given patient. [facility] does not assume any responsibility for any aspect of healthcare administered with the aid of information [facility] provides. The information contained herein is not intended to cover all possible uses, directions, precautions, warnings, drug interactions, allergic reactions, or adverse effects. If you have questions about the drugs you are taking, check with your doctor, nurse or pharmacist. Copyright 5081-1746 [employer]. Version: .. Revision Date: 06/06/2023. aspirin (oral) ( pir in) Aspi-Cor, Lore Plus, Durlaza, Ecotrin, Miniprin, Vazalore What is the most important information I should know about aspirin? Aspirin can cause Kimberly's syndrome, a serious and sometimes fatal condition in children. What is aspirin? Aspirin is a salicylate (vr-FBX-vq-ate) that is used to treat pain, and [...] may report side effects to FDA at 0-049-QQU-0236. What other drugs will affect aspirin? Ask [...] drugs may affect aspirin, including prescription and lvmx-sfw-ulceuft medicines, vitamins, and herbal products. Not all [...] to ensure that the information provided by [employer]. ('[employer]') is accurate, up-to-date, and complete, but no guarantee is made to that effect. Drug information contained herein may be time sensitive. [employer] information has been compiled for use by healthcare practitioners and consumers in the [place] and therefore [employer] does not warrant that uses outside of the [place] are appropriate, unless specifically indicated otherwise. [employer]'s drug information does not endorse drugs, diagnose patients or recommend therapy. [employer] drug information is an informational resource designed [...] effective or appropriate for any given patient. [employer] does not assume any responsibility for any aspect of healthcare administered with the aid of information [employer] provides. The information contained herein is not intended to cover all possible uses, directions, precautions, warnings, drug interactions, allergic reactions, or adverse effects. If you have questions about the drugs you are taking, check with your doctor, nurse or pharmacist. Copyright 2696-2122 [employer]. Version: 18.. Revision Date: 05/30/2023. famotidine (oral/injection) [...] may report side effects to FDA at 5-249-ZOX-6366. What other drugs will affect famotidine? Famotidine oral can make it harder for your body to absorb other medicines you take by mouth. Tell your doctor if you are taking: cefditoren; dasatinib; delavirdine; fosamprenavir; or tizanidine (if you are taking famotidine liquid). This list is not complete. Other drugs may affect famotidine, including prescription and mvns-wrf-jbfcdoj medicines, vitamins, and herbal products. Not all [...] to ensure that the information provided by [employer]. ('[employer]') is accurate, up-to-date, and complete, but no guarantee is made to that effect. Drug information contained herein may be time sensitive. [employer] information has been compiled for use by healthcare practitioners and consumers in the [place] and therefore [employer] does not warrant that uses outside of the [place] are appropriate, unless specifically indicated otherwise. [employer]'s drug information does not endorse drugs, diagnose patients or recommend therapy. [employer] drug information is an informational resource designed [...] effective or appropriate for any given patient. [employer] does not assume any responsibility for any aspect of healthcare administered with the aid of information [employer] provides. The information contained herein is not intended to cover all possible uses, directions, precautions, warnings, drug interactions, allergic reactions, or adverse effects. If you have questions about the drugs you are taking, check with your doctor, nurse or pharmacist. Copyright 2619-4427 [employer]. Version: .. Revision Date: 05/30/2023. Education Materials [...] Follow these instructions at home: Medicines Take iwtd-yzw-wdzoirs and prescription medicines only as told by [...] your pee (urine) pale yellow. ? Take clip-kkj-tbiqwks or prescription medicines. ? Eat foods that [...] cannot use soap and water, use hand scratch polisher. ? Change your bandage as told by your doctor. ? Leave stitches (sutures), skin glue, or skin tape (adhesive) strips in bruna (more content not included)... [facility] 09-21-2023 Note Date of Service [...] does have outpatient physical therapy established at [facility] [place]. She will follow-up per postoperative instructions. Patient would like her prescriptions E scribed to Jaimie Humphreys in [facility]. Upon discharge she will contact her office with any concerns or questions. I have reviewed the [place] Automated Rx Reporting System (OARRS) report for [...] NOEMI JOEL PA-C on 09/21/2023 06:56 AM [facility] 09-21-2023 Note Date of Service September 21, [...] does have outpatient physical therapy established at [facility] [place]. She will follow-up per postoperative instructions. Patient would like her prescriptions E scribed to Jaimie Humphreys in [facility]. Upon discharge she will contact her office with any concerns or questions. I have reviewed the [place] Automated Rx Reporting System (OARRS) report for [...] NOEMI JOEL PA-C on 09/21/2023 06:56 AM [facility] 09-20-2023 Note ORIGINAL EXAMINATION: TWO [...] 09/20/2023 1:06:13 PM Ordering Provider: AREN ZULUAGA [facility] 09-20-2023 Anesthesiology Consult note Patient: [...] or recorded. Procedure history: Arthroscopy of knee ([id number]). Comments: 09/20/2023 8:59 Montse Valente RN LEFT [...] Height 165.1 cm Admission Weight 87.9 kg [place] Body Weight 57.00 kg Admission Body Mass [...] We May Share PHI SOL [place] [phone] Designated Person #1 Relationship Daughter Designated Person #2 We May Share PHI RIC TRUJILLO [phone] Designated Person #2 Relationship Daughter Privacy Restrictions [...] No Advanced Directives Yes Advance Directive Type [place] Durable Power of Grey Stock Recorder for [place], [place] Declaration (Living Will) Advance Directive Location [...] after midnight, No makeup, No jewelry, Responsible Republican, Aware of surgery location, Pre-op education done, 1 bottle CHG wash with instructions given, No ordered medications, Total Joint Replacement/Colorectal Book Given, SSI prevention handout given, Anesthesia block education provided SN - Preprocedure Comments Spoke with patient, Verbalizes/Nonverbally indicates understanding Anesthesia Evaluation Date/Time 08/26/2023 12:43 Anesthesia Evaluation Performed By LAM DAVILA DIRECTOR REGULATORY [facility] Anesthesia Evaluation Result Approved Individuals Taught Patient, Daughter Barriers to Learning None evident Teaching Method Explanation Preferred Spoken Language Iranian Preferred Written Language Iranian Total Joint Book Given Yes Pre Procedure/Surgery [...] Height 165.1 cm Admission Weight 87.9 kg [place] Body Weight 57.00 kg Admission Body Mass [...] no difficulties Skin Temperature Warm Skin Description [place], Dry Skin Integrity Intact Neurological Symptoms Patient [...] Upper/Half-Length side-rails up . Assessment and Plan [place] [employer] Anesthesiologists (ASA) physical status classification: Class III. Anesthetic Preoperative Plan Anesthetic technique: Spinal. Regional: Spinal. Postoperative pain management: adductor canal block. Risks discussed: nausea, vomiting, headache, hypotension, allergic reaction, serious complications. Informed consent: signed by patient. Digitally Signed by LAM DAVILA on 09/20/2023 10:24 AM [facility] 08-26-2023 Note ORIGINAL EXAMINATION: CT [...] 08/26/2023 4:18:41 PM Ordering Provider: AREN ZULUAGA [facility] 04-30-2021 Note HNO ID: [id number] Author: Jin Hinds MD Service: ? Author Type: Physician Type: Progress Notes Filed: 05/05/2021 8:44 PM Note Text: CONSULT ORTHOPAEDIC: KNEE PRIMARY CARE PHYSICIAN: No primary care provider on file. REFERRING PROVIDER: SELF ASSESSMENT AND PLAN Impression: Left Knee Severe Degenerative Osteoarthritis, Primary After discussion with Jennifer Mon, continued non-operative management of anesthesiologist assistant certified bracing and Voltaren gel was chosen. The [...] and healthy. The patient has been ordered: Tapper Shank brace CONSULTS: Patient does not require consults [...] noted to hav (more content not included)... [facility] Evaluation + Plan note Future Appointments [facility] Hospital course Narrative No data available for this section [facility] Hospital Discharge instructions No data available for this section [facility] Progress note No data available for this section [facility] Summary Purpose Family History No [...] DATE CREATED AUTHOR AUTHOR'S ORGANIZ ATION 12/09/2021 [facility] DATE CREATED AUTHOR AUTHOR'S ORGANIZ ATION 11/03/2023 [facility] ([place]) Patient Care team informatio n (unrecognized section and content) Care Team Personnel Name: ALEX GIANG MD Member Role: Primary Care Physician Address: Address: [address] [place] [address] Care Team Related Persons Name: RIC TRUJILLO Care Team Personnel Name: ALEX GIANG MD Member Role: Primary Care Physician Address: Address: [address] [place] [address] Care Team Related Persons Name: IRC TRUJILLO Care Team Personnel Name: ALEX GIANG MD Member Role: Primary Care Physician Address: Address: [address] [place] [address] Care Team Related Persons Name: RIC TRUJILLO [...] BE BASED ON THE PRIMARY CLINICAL RECORDS. [facility]. provides no warranty or guarantee of the accuracy or completeness of information in this document.
== END | disposition home or self-care (01) ==
PROVIDERS: PCP Family Medicine; Referring Provider Family Medicine Geriatric Medicine; Visit Provider Family Medicine Geriatric Medicine
DX: M79.89 Other specified soft tissue disorders (principal)
CPT/HCPCS: 93971

== ENCOUNTER → 2024-04-04 | Outpatient (CLI) | payer MEDICARE, SELFPAY ==
[2024-04-04 16:43] LABS: Bacteria 0 SEEN /hpf (None Seen); Mucous, Urine 0 SEEN /hpf (<or=2+)
[2024-04-04 17:44] LABS: Color, Urine Yellow (Yellow); Glucose, Dipstick Normal (Normal); Ketone-Dipstick Negative (Negative); Leukocyte Esterase-Dipstick 100 /ul (Negative); Nitrite-Dipstick Negative (Negative); Occult Blood-Urine 150 /ul (Negative); Protein-Dipstick Negative (Negative); Urine Bilirubin Dipstick Negative (Negative); Urine Clarity Clear (Clear); Urine Urobilinogen Normal (Normal)
[2024-04-04 17:55] LABS: Squamous Epithelial Cells - UA 5-10 SEEN /hpf (5-10); White Blood Cells 5-10 SEEN /hpf (0-5)
[2024-04-04 17:56] LABS: Red Blood Cells-Urine 0-5 SEEN /hpf (0-5); Renal Epithelial Cells 0-5 SEEN /hpf (0-5)
[2024-04-04 18:09] LABS: Absolute Neutrophil Count 2.1 X10^3/uL (2.0-7.7); Basophil# 0.04 X10^3/uL; Basophil% 0.8 % (0-1); Eosinophil# 0.25 X10^3/uL; Hematocrit 38.8 % (37-47); Hemoglobin 12.5 g/dL (12.0-15.0); Lymphocyte % 42.1 % (19-41); Mean Corp Hgb Conc 32.2 g/dL (32-36); Mean Corpuscular Hgb 28.1 pg (27.0-32.0); Mean Corpuscular Volume 87.2 fL (81-99); Mean Platelet Vol. 10.4 fl (6.2-12.0); Monocyte# 0.48 X10^3/uL; Monocyte% 9.6 % (0-10); NRBC Flagged by Analyzer 0 % (0-5); Neutrophil # 2.11 X10^3/uL (2.7-7.7); Neutrophil % 42.3 % (47-70); Platelet Count 223 K/mm3 (150-450); RBC Distribution Width CV 14.6 % (11.6-14.6); RBC Distribution Width SD 46.2 fl (35.1-43.9); Red Blood Count 4.45 M/mm3 (4.2-5.4)
[2024-04-04 18:18] LABS: Vitamin D,25 Hydroxy 30.5 ng/mL
[2024-04-04 18:20] LABS: ALB/GLOB Ratio 1.2 RATIO (0.9-2.4); AST(SGOT) 21 U/L (15-37); Alanine Aminotransfer ALT/SGPT 19 U/L (13-56); Albumin, Serum 3.9 g/dL (3.2-5.0); Alkaline Phosphatase 101 U/L (45-117); Anion Gap 5 (5-15); BUN 17 mg/dL (7-18); BUN/Creat Ratio 18.5 RATIO (10-20); Calcium,Total 9.5 mg/dL (8.5-10.1); Chloride 106 mmol/L (98-107); Cholesterol 206 mg/dL (200); Creatinine, Serum 0.92 mg/dL (0.55-1.02); EST Glomerular Filtration Rate 62 mL/min (>60); Est Glom Filt Rate - Afr Amer 75 mL/min (>60); Globulin 3.2 g/dL (2.2-4.2); Glucose 103 mg/dL (74-106); High Density Lipoprotein 80 mg/dL; Potassium 3.8 mmol/L (3.5-5.1); Protein, Total 7.1 g/dL (6.4-8.2); Sodium Level 138 mmol/L (136-145); Triglycerides 179 mg/dL; Very Low Density Lipoprotein 36 mg/dL (5-40)
== END | disposition home or self-care (01) ==
LOC: MFPLAB 16:42
PROVIDERS: PCP Family Medicine; Visit Provider Family Medicine
DX: I10 Essential (primary) hypertension (principal); E55.9 Vitamin D deficiency, unspecified
CPT/HCPCS: 36415; 80053; 80061; 81001; 82306; 85025

== ENCOUNTER 2024-04-12 12:03 | Outpatient (RCR) | payer MEDICARE, SELFPAY ==
--- NOTE | 2024-04-12 13:00 | HP.PTEVAL_ITS ---
Patient's Visit Information Visit Information Visit Information: FRED RESTREPO is a 83 year old F referred to Physical Therapy by Dr. Shatn Sommers MD with a diagnosis of BPPV. Date of Evaluation: 04/12/24 Physical Therapist: Stefano Saunders Visit Plan Frequency: 1-2x /Week Duration: 6 Weeks Plan: If pt. returns, reassess ngoc hallpike to determine if Yovana is needed. May also continue with gaze stabilization and balance exercises as well. Subjective Subjective: Pt. is a 83 y.o. female who has been having dizziness for a couple of months with no specific cause that she is aware of. Her PLOF includes history of dizziness several years ago with BPPV. Pt. denies any change in her vision or loss of vision. Pt. also denies any change in her hearing or ringing in her ears. She describes the dizziness as occasionally light headed and occasionally spinning sensation which lasts less than a minute. She had one fall last May but denies any other falls. Pt. has difficulty with rolling over in bed to left side, occasionally bending forward to pick something up, and occasionally looking up/down. 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 Her goal with physical therapy is to get rid of the dizziness. She has had previous physical therapy in the past for her shoulder and knees. Pt. denies any pain. She has Meclizine but is not taking it. Pt. PMH includes bilateral knee replacements. Pt. lives alone. Her hobbies include reading, watching tv, and working in flower beds. Objective Objective: Neck AROM- WNL for all motions Spontaneous nystagmus [-], Smooth pursuit [-], Saccades [-], Gaze hold [-], VOR head impulse [-], VOR cancellation [-] Left LE strength grossly 4+/5 for all motions Right LE strength grossly 4+/5 for all motions Sensation- WNL bilateral lower extremities Tandem stance right 30 secs, left 7 secs SLS right- 1 sec, left- 2 secs Gait- Pt. ambulates with wider base of support. Balance/Special Test Scores Dizziness Score: 14 Goals Goal 1:: Pt. will have no dizziness with looking up or down. Goal Time Frame: 4-6 Weeks Goal 2:: Pt. will be able to bend forward with no dizziness. Goal Time Frame: 4-6 Weeks Goal 3:: Pt. will be able to roll over in bed with no dizziness. Goal Time Frame: 4-6 Weeks Goal 4:: Pt. will improve DHI score <10/100 in order to improve dizziness and balance. Goal Time Frame: 4-6 Weeks Rehabilitation Potential Physical Therapy Diagnosis: Dizziness and decreased balance Rehabilitation Potential: Good Anticipated Interventions Patient/Client Instruction: Educate patient on: Condition and Plan of Care For the Purpose of:: To improve ability to perform ADL's, To improve performance and independence with ADL's, To improve balance, To assume or resume ADL's and To improve tolerance to ADL's Therapeutic Exercise to Include: Balance training and Gait and locomotor training Comment: Reassess ngoc boateng if pt. returns to determine if Yovana is needed. May continue with gaze stabilization and balance exercises as well. For the Purpose of:: To improve ability to perform ADL's, To improve performance and independence with ADL's, To improve balance and To improve tolerance to ADL's Text: Thank you for the opportunity to evaluate your patient. For Medicare and Medicare HMO plans, please review the plan of care and approve it. It will need to be FAXED BACK to us at [phone] for Medicare purposes. For Medicare only, by signing this I certify the plan of care. Please let me know if there are questions or concerns regarding this plan of care. Physician S ignature: Date:
== END 2024-04-12 19:00 | disposition home or self-care (01) ==
LOC: PT 12:03
PROVIDERS: PCP Family Medicine; Referring Provider Family Medicine; Visit Provider Family Medicine
DX: H81.10 Benign paroxysmal vertigo, unspecified ear (principal)
CPT/HCPCS: 97161; 97530

== ENCOUNTER → 2024-07-06 | Outpatient (CLI) | payer MEDICARE, SELFPAY ==
[2024-07-06 12:34] LABS: Absolute Lymphocyte Count 1.63 X10^3/uL (0.83-4.51); Absolute Neutrophil Count 2.2 X10^3/uL (2.0-7.7); Basophil# 0.05 X10^3/uL; Basophil% 1.1 % (0-1); Eosinophil# 0.18 X10^3/uL; Hematocrit 36.8 % (37-47); Lymphocyte # 1.63 X10^3/ul (0.83-4.51); Lymphocyte % 36.4 % (19-41); Mean Corp Hgb Conc 32.6 g/dL (32-36); Mean Corpuscular Hgb 28.8 pg (27.0-32.0); Mean Corpuscular Volume 88.5 fL (81-99); Mean Platelet Vol. 11.1 fl (6.2-12.0); Monocyte# 0.45 X10^3/uL; NRBC Flagged by Analyzer 0 % (0-5); Neutrophil # 2.16 X10^3/uL (2.7-7.7); Neutrophil % 48.3 % (47-70); Platelet Count 185 K/mm3 (150-450); RBC Distribution Width CV 14.5 % (11.6-14.6); RBC Distribution Width SD 46.7 fl (35.1-43.9); Red Blood Count 4.16 M/mm3 (4.2-5.4); White Blood Count 4.5 K/mm3 (4.4-11.0)
[2024-07-06 12:56] LABS: Anion Gap 7 (5-15); BUN 17 mg/dL (7-18); BUN/Creat Ratio 21.7 RATIO (10-20); Calcium,Total 9.5 mg/dL (8.5-10.1); Chloride 110 mmol/L (98-107); Creatinine, Serum 0.78 mg/dL (0.55-1.02); EST Glomerular Filtration Rate 75 mL/min (>60); Est Glom Filt Rate - Afr Amer 90 mL/min (>60); Glucose 93 mg/dL (74-106); Potassium 4.3 mmol/L (3.5-5.1); Sodium Level 140 mmol/L (136-145)
[2024-07-06 14:06] LABS: Vitamin D,25 Hydroxy 30.9 ng/mL
== END | disposition home or self-care (01) ==
LOC: MFPLAB 10:49
PROVIDERS: PCP Family Medicine; Visit Provider Registered Nurse
DX: R31.9 Hematuria, unspecified (principal); R53.83 Other fatigue
CPT/HCPCS: 36415; 80048; 82306; 84443; 85025; 87077; 87086; 87088; 87186

== ENCOUNTER → 2024-08-07 | Outpatient (CLI) | payer MEDICARE, SELFPAY ==
--- NOTE | 2024-08-07 11:05 | BD_ITS ---
STUDY: DUAL ENERGY X-RAY ABSORPTIOMETRY / DXA REASON FOR EXAM: Female, 83 years old. M85.89 TECHNIQUE: Bone Mineral Density (BMD) measurements of lumbar spine and bilateral hips were obtained. COMPARISON: Comparison is made with prior study dated April 01, 2022. FINDINGS: Lumbar Spine (L1-L4): g/cm2 (0.857) / T-score (-1.1) / Z-score (1.5) Findings are suggestive of osteopenia with a low fracture risk. Left Femur Total: g/cm2 (0.789) / T-score (-1.3) / Z-score (1.0) Left Femoral Neck: g/cm2 (0.604) / T-score (-2.2) / Z-score (0.3) Right Femur Total: g/cm2 (0.694) / T-score (-2.0) / Z-score (0.2) Right Femoral Neck: g/cm2 (0.574) / T-score (-2.5) / Z-score (0.0) The T-Scores on the most recent prior examination were: Lumbar Spine (L1-L4): There has been improvement of bone density since the previous examination. Left Femur Total: which represents an improvement of 2.6%. Right Femur Total: which represents a worsening of 6.2%. BD/Dexa Bone Density Study IMPRESSION: The patient is considered osteoporotic as outlined below according to World Brad Organization (WHO) criteria with a high fracture risk. There has been worsening of bone density since the previous examination. Reference Information: The T-score is the number of standard deviations above or below the standard which is normal for young adults at their peak bone mineral density. The World Health Organization (WHO) interprets the T-scores as follows: Above -1 Normal bone density Between -1 and -2.5 Osteopenia Equal to / or below -2.5 Osteoporosis As a practical clinical guideline, osteopenia may be graded as follows: Mild -1 through -1.5 Moderate -1.6 through -2.0 Severe -2.1 through -2.4 The Z-score is the number of standard deviations above or below age-matched controls. A Z-score of less than -1.5 would be considered abnormal. References: 1. NIH Osteoporosis and Related Bone Diseases www osteo.org 2. International Society for Clinical Densitometry www iscd.org 3. National Osteoporosis Foundation www nof.org Electronically Signed: Fady Ryder MD at 10:26 EDT ,
== END | disposition home or self-care (01) ==
LOC: OPBD 11:03
PROVIDERS: PCP Family Medicine; Referring Provider Family Medicine; Visit Provider Family Medicine
DX: M85.89 Other specified disorders of bone density and structure, multiple sites (principal)
CPT/HCPCS: 77080

== ENCOUNTER 2024-08-10 02:08 | Emergency (ER) | payer MEDICARE, SELFPAY ==
[2024-08-10 02:08] VITALS: BP 243/99
[2024-08-10 02:09] VITALS: BP 243/99; PULSE 65; RESP 18; TEMP 36.7; O2SAT 97; BMI 34.4
--- NOTE | 2024-08-10 03:00 | RAD_ITS ---
INDICATION: PAIN EXAMINATION/TECHNIQUE: X-RAY - XR Ribs Unilateral W/ PA Chest Min 3 Views COMPARISON: None. Findings: Single frontal view of the chest. 2 dedicated views of the left ribs. LUNG PARENCHYMA: No acute focal airspace disease or mass lesion. PLEURA: No pleural effusion. No pneumothorax. HEART/GREAT VESSELS: Cardiomediastinal silhouette is unremarkable. BONES: Displaced left lateral ninth rib fracture. RAD/Ribs Uni Min 3V w/PA Chest IMPRESSION: Displaced left lateral ninth rib fracture. Chest with no other significant acute disease. Electronically Signed: Truong Saba MD at 4:50 EDT ,
[2024-08-10 04:08] VITALS: BP 203/87; PULSE 81; RESP 18; O2SAT 98
--- NOTE | 2024-08-10 04:58 | EX.ED.DYSGE1 ---
HPI History of Present Illness Chief Complaint: Fall Informant: patient Narrative Narrative: Patient is an 83-year-old female with past medical history hypertension hyperlipidemia and osteopenia. She states on around 3 in the afternoon she was walking into her bathroom when her 1 slipper began to fall off which caused her to trip and fall. She states she landed on her left side and struck her left chest/ribs off a scale on the ground. She denies striking her head or any loss of consciousness. She denies any history of bleeding disorder or blood thinner use. She states she was able to get up shortly after the fall but as time is passed she has been having increasing pain to the rib region and has concern for potential fracture and therefore comes in for evaluation. [facility] Medical History (Updated 08/10/24 @ 05:[address] Víctor Henry, DO) Wears glasses Post-menopausal Walker as ambulation aid Ambulates with cane Arthritis High cholesterol Injury of head and neck Non-smoker Shortness of breath on exertion History of edema History of echocardiogram History of stress test Hyperlipidemia Hypertension Home Medications ?Medication ?Instructions ?Recorded ?Last Taken ?Type lovastatin 40 mg tablet 40 mg PO DAILY Cholesterol 04/29/20 12/22/23 21:40 History cholecalciferol (vitamin D3) 50 50 mcg PO DAILY health maintenance 06/23/22 12/23/23 09:30 History mcg (2,000 unit) capsule acetaminophen 500 mg tablet 1,000 mg (2 x 500 mg) PO Q8 pain 12/23/23 12/23/23 09:30 Rx #0 tabs famotidine 20 mg tablet 20 mg PO DAILY Acid #0 tabs 12/23/23 12/23/23 09:30 Rx acetaminophen 500 mg tablet 1,000 mg (2 x 500 mg) PO Q6 #0 tabs 01/02/24 Unknown Rx aspirin 81 mg chewable tablet 81 mg PO BIDCM 14 days #0 tabs 01/02/24 Unknown Rx losartan 100 mg tablet 100 mg PO DAILY 30 days #30 tabs 01/02/24 Unknown Rx melatonin 10 mg sublingual tablet 10 mg PO QHS #0 tabs 01/02/24 Unknown Rx meloxicam 7.5 mg tablet 7.5 mg PO BIDCM 30 days #60 tabs 01/02/24 Unknown Rx tramadol 50 mg tablet 50 mg PO Q6H PRN PRN Pain Score 01/02/24 Unknown Rx 1-10 7 days #28 tabs gabapentin 300 mg capsule 300 mg PO TID PRN pain 5 days #15 08/10/24 Unknown Rx caps oxycodone 5 mg tablet 5 mg PO Q6H PRN pain 5 days #20 08/10/24 Unknown Rx tabs Allergy/AdvReac Type Severity Reaction Status Date / Time No Known Allergies Allergy Verified 12/21/23 06:41 Surgical History Status post total left knee replacement Hx of colonoscopy Hx of left knee surgery Hx of total knee replacement Social History Smoking Status: Former smoker alcohol intake: never substance use type: does not use caffeine: Yes what type of physical activity do you participate in: none seatbelt use: always do you feel safe at home: Yes additional social history: ROS ROS ED Constitutional Constitutional ED: Denies chills or fever(s) Eyes Eyes: Denies blurry vision or change in vision ENT ENT ED: Denies sore throat Cardiovascular Cardiovascular: Denies chest pain Respiratory/Chest Respiratory/Chest: Denies cough or dyspnea Gastrointestinal Gastrointestinal: Denies abdominal pain, diarrhea, nausea or vomiting Genitourinary Genitourinary ED: Denies dysuria Musculoskeletal Musculoskeletal: Reports other Details: Positive left rib pain ; Denies back pain or neck pain Integumentary Denies Abrasions or rash Neurologic Neurologic: Denies headache(s) Hematologic/Lymphatic Hematologic/Lymphatic: Denies easy bleeding or easy bruising EXAM Physical Exam Const Vital Signs: 08/10/24 02:08 08/10/24 02:09 08/10/24 02:13 Temperature 98.1 F Temperature Source Oral Pulse Rate 65 Respiratory Rate 18 Respiratory Effort Normal Non-Labored Respiratory Depth Normal Respiratory Pattern Normal Blood Pressure 243/99 H 243/99 H Blood Pressure Mean 147 147 Pulse Ox 97 Oxygen Delivery Method Room Air Room Air 08/10/24 04:08 08/10/24 05:02 Temperature 97.8 F Temperature Source Pulse Rate 81 65 Respiratory Rate 18 18 Respiratory Effort Respiratory Depth Respiratory Pattern Blood Pressure 203/87 H 179/85 H Blood Pressure Mean 125 116 Pulse Ox 98 97 Oxygen Delivery Method Room Air Positive well nourished and well developed General Appearance ED: well developed HEENT HEENT Narrative: No signs of depressed or basilar skull fracture Eyes PERRL and EOMs intact bilaterally Neck supple Neck Narrative: No bony deformity or step-off of the cervical spine no midline tenderness to palpation Chest Wall Chest Narrative: There is pain with palpation along the left anterior lateral chest wall rib regions 10-12 without bony deformity or crepitance Resp normal respiratory effort and clear to auscultation bilaterally Resp Narrative: Breath sounds are diminished throughout but overall clear to auscultation without signs of respiratory distress Cardio regular rate and regular rhythm GI normal to inspection, nondistended, normoactive bowel sounds, non-tender, non-distended and no masses Auscultation: normoactive bowel sounds Palpation: soft Back/Spine Back/Spine Narrative: No bony deformity or step-off of the thoracic or lumbar spine no midline tenderness to palpation Extremity normal to inspection Extremity Narrative: Pelvis is stable there is no shortening or external rotation of either lower extremity Patient can lift both arms and legs without difficulty Neuro oriented x3, CN's II-XII intact bilaterally and no sensory deficits noted Sensorium / Orientation: alert Motor Exam: strength 5/5 throughout Psych mental status grossly normal Skin no rashes or lesions noted Skin Narrative: No abrasions or ecchymosis noted MDM MDM MDM Narrative Medical decision making narrative: Patient presented to the ER hypertensive but has a past medical history of this and states she has not taken her blood pressure medications. Otherwise vitals are stable. She reported a mechanical fall and therefore I feel there is no need for cardiac or syncope workup. Without history of bleeding disorder or blood thinner use or signs of head trauma I feel no need for head CT. However with concern for rib fracture versus rib contusion versus pneumothorax or hemothorax I did elect to perform a rib series. X-ray confirmed a left ninth rib fracture without hemothorax or pneumothorax. The patient is not requiring supplemental oxygen she is not in respiratory distress there are no signs of long bone injury and therefore there is no need for further workup in the ER. Patient will be given an incentive spirometer and pain control but is otherwise safe for discharge History & Record Review Discussion w/independent historian: Patient Radiography Diagnostic Testing: Clinical Impression(s) from Imaging Studies Ribs w/Chest X-Ray 08/10/24 03:00 IMPRESSION: Displaced left lateral ninth rib fracture. Chest with no other significant acute disease. Electronically Signed: Truong Saba MD at 4:50 EDT , Left rib series with 1 view chest as interpreted by the emergency medicine physician reveals a left ninth rib fracture without pneumothorax hemothorax or infiltrate. Discharge Plan Triage Chief Complaint: Fall ED Provider: Víctor Henry Dx/Rx/DC Orders Clinical Impression: Left rib fracture, Hypertension, Hyperlipidemia, Osteopenia Instructions: ED Rib Fracture Prescriptions: New oxycodone 5 mg tablet 5 mg PO Q6H PRN (Reason: pain) 5 Days Qty: 20 0RF gabapentin 300 mg capsule 300 mg PO TID PRN (Reason: pain) 5 Days Qty: 15 0RF No Action cholecalciferol (vitamin D3) 50 mcg (2,000 unit) capsule 50 mcg PO DAILY lovastatin 40 MG tablet 40 mg PO DAILY acetaminophen 500 mg Tablet 1,000 mg PO Q8 Qty: 0 0RF famotidine 20 mg Tablet 20 mg PO DAILY Qty: 0 0RF acetaminophen 500 mg Tablet 1,000 mg PO Q6 Qty: 0 0RF tramadol 50 mg Tablet 50 mg PO Q6H PRN PRN (Reason: Pain Score 1-10) 7 Days Qty: 28 0RF meloxicam 7.5 mg Tablet 7.5 mg PO BIDCM 30 Days Qty: 60 0RF aspirin 81 mg Tablet,Chewable 81 mg PO BIDCM 14 Days Qty: 0 0RF losartan 100 mg Tablet 100 mg PO DAILY 30 Days Qty: 30 0RF melatonin 10 mg Tablet, Sublingual 10 mg PO QHS Qty: 0 0RF Primary Care Provider: Shant Sommers Referrals: Shant Sommers MD [Primary Care Provider] - Activity Restrictions/Additional Instructions: Please make sure you are taking a deep breath with your incentive spirometer once every hour while you are awake to prevent pneumonia. Take the prescribed medication as directed to help control pain from your fracture and return to the ER should you have any further concerns. It will typically take 2 to 4 weeks for your rib fracture to heal Print Language: Faroese Disposition Disposition: Home, Self Care Discharge Date/Time: 08/10/24 05:26
[2024-08-10 05:02] VITALS: BP 179/85; PULSE 65; RESP 18; TEMP 36.6; O2SAT 97
[2024-08-10] MEDS: oxyCODONE 5 MG Tablet PO (05:07)
== END 2024-08-10 05:26 | disposition home or self-care (01) ==
PROVIDERS: Emergency Provider Emergency Medicine; PCP Family Medicine; Visit Provider Emergency Medicine
DX: S22.32XA Fracture of one rib, left side, initial encounter for closed fracture (principal); M85.80 Other specified disorders of bone density and structure, unspecified site; I10 Essential (primary) hypertension; Z87.891 Personal history of nicotine dependence; E78.00 Pure hypercholesterolemia, unspecified; W01.198A Fall on same level from slipping, tripping and stumbling with subsequent striking against other object, initial encounter
CPT/HCPCS: 71101; 99282

== ENCOUNTER → 2024-09-13 | Outpatient (CLI) | payer MEDICARE, SELFPAY ==
[2024-09-13 11:58] LABS: Mucous, Urine 0 SEEN /hpf (<or=2+)
[2024-09-13 15:01] LABS: Color, Urine Yellow (Yellow); Glucose, Dipstick Normal (Normal); Ketone-Dipstick Negative (Negative); Leukocyte Esterase-Dipstick 25 /ul (Negative); Nitrite-Dipstick Positive (Negative); Occult Blood-Urine 150 /ul (Negative); Protein-Dipstick 30 mg/dl (Negative); Urine Bilirubin Dipstick Negative (Negative); Urine Clarity Sl. Cloudy (Clear); Urine Urobilinogen Normal (Normal)
[2024-09-13 15:02] LABS: Absolute Lymphocyte Count 1.71 X10^3/uL (0.83-4.51); Absolute Neutrophil Count 2.5 X10^3/uL (2.0-7.7); Basophil# 0.05 X10^3/uL; Eosinophil# 0.06 X10^3/uL; Eosinophils% 1.3 % (0-5); Hematocrit 38.5 % (37-47); Hemoglobin 13.1 g/dL (12.0-15.0); Lymphocyte # 1.71 X10^3/ul (0.83-4.51); Lymphocyte % 35.8 % (19-41); Mean Corpuscular Volume 88.1 fL (81-99); Mean Platelet Vol. 10.7 fl (6.2-12.0); Monocyte# 0.46 X10^3/uL; Monocyte% 9.6 % (0-10); NRBC Flagged by Analyzer 0 % (0-5); Neutrophil # 2.48 X10^3/uL (2.7-7.7); Neutrophil % 52.1 % (47-70); Platelet Count 191 K/mm3 (150-450); RBC Distribution Width CV 13.8 % (11.6-14.6); RBC Distribution Width SD 44.5 fl (35.1-43.9); Red Blood Count 4.37 M/mm3 (4.2-5.4); White Blood Count 4.8 K/mm3 (4.4-11.0)
[2024-09-13 15:45] LABS: Bacteria 3+ /hpf (None Seen); Red Blood Cells-Urine 0-5 SEEN /hpf (0-5); Squamous Epithelial Cells - UA 0-5 SEEN /hpf (5-10); White Blood Cells 0-5 SEEN /hpf (0-5)
[2024-09-13 16:01] LABS: ALB/GLOB Ratio 1.2 RATIO (0.9-2.4); AST(SGOT) 17 U/L (15-37); Alanine Aminotransfer ALT/SGPT 19 U/L (13-56); Albumin, Serum 3.8 g/dL (3.2-5.0); Alkaline Phosphatase 105 U/L (45-117); Anion Gap 5 (5-15); BUN 17 mg/dL (7-18); BUN/Creat Ratio 21.1 RATIO (10-20); Calcium,Total 9.5 mg/dL (8.5-10.1); Chloride 106 mmol/L (98-107); Cholesterol 255 mg/dL (200); Creatinine, Serum 0.81 mg/dL (0.55-1.02); EST Glomerular Filtration Rate 72 mL/min (>60); Est Glom Filt Rate - Afr Amer 87 mL/min (>60); Globulin 3.3 g/dL (2.2-4.2); Glucose 94 mg/dL (74-106); High Density Lipoprotein 83 mg/dL; Magnesium 2.2 mg/dL (1.6-2.6); Potassium 4.2 mmol/L (3.5-5.1); Protein, Total 7.1 g/dL (6.4-8.2); Sodium Level 136 mmol/L (136-145); Triglycerides 145 mg/dL; Very Low Density Lipoprotein 29 mg/dL (5-40)
== END | disposition home or self-care (01) ==
LOC: MFPLAB 11:49
PROVIDERS: PCP Family Medicine; Visit Provider Family Medicine
DX: I10 Essential (primary) hypertension (principal); E55.9 Vitamin D deficiency, unspecified
CPT/HCPCS: 36415; 80053; 80061; 81001; 82306; 83735; 84443; 85025

== ENCOUNTER → 2025-02-27 | Outpatient (CLI) | payer MEDICARE, SELFPAY ==
[2025-02-27 17:45] LABS: Hematocrit 36.4 % (37-47); Hemoglobin 12.1 g/dL (12.0-15.0); Mean Corp Hgb Conc 33.2 g/dL (32-36); Mean Corpuscular Hgb 30.3 pg (27.0-32.0); Mean Platelet Vol. 10.7 fl (6.2-12.0); Platelet Count 177 K/mm3 (150-450); RBC Distribution Width CV 13.7 % (11.6-14.6); RBC Distribution Width SD 46.1 fl (35.1-43.9); White Blood Count 4.9 K/mm3 (4.4-11.0)
[2025-02-27 18:35] LABS: ALB/GLOB Ratio 1.8 RATIO (0.9-2.4); AST(SGOT) 20 U/L (<=31); Alanine Aminotransfer ALT/SGPT 13 U/L (<=34); Albumin, Serum 4.3 g/dL (3.4-4.8); Alkaline Phosphatase 88 U/L (35-104); Anion Gap 12 (5-15); BUN 18 mg/dL (4-19); BUN/Creat Ratio 21.3 RATIO (10-20); Calcium,Total 9.6 mg/dL (7.6-11.0); Chloride 105 mmol/L (98-108); Creatinine, Serum 0.85 mg/dL (0.70-1.20); EST Glomerular Filtration Rate 68 (>60); Globulin 2.4 g/dL (2.2-4.2); Glucose 99 mg/dL (70-99); Potassium 3.7 mmol/L (3.3-5.1); Protein, Total 6.7 g/dL (5.9-8.4); Sodium Level 141 mmol/L (133-145); Total Bilirubin 0.43 mg/dL (0.00-1.30); Vitamin B12 337 pg/mL (180-914)
== END | disposition home or self-care (01) ==
PROVIDERS: PCP Family Medicine; Referring Provider Family Medicine; Visit Provider Family Medicine
DX: G31.84 Mild cognitive impairment of uncertain or unknown etiology (principal); E55.9 Vitamin D deficiency, unspecified
CPT/HCPCS: 36415; 80053; 82306; 82607; 84443; 85027

== ENCOUNTER → 2025-06-10 | Outpatient (CLI) | payer MEDICARE, SELFPAY ==
--- NOTE | 2025-06-10 13:10 | BI_ITS ---
EXAM: SCRN MAMM (CAD)W/CHRISTIANO BILAT DATE: 06/10/2025 CLINICAL HISTORY: F, Age 84 y/o , SCREENING FOR BREAST CANCER TECHNIQUE: SCRN MAMM (CAD)W/CHRISTIANO BILAT COMPARISON: Prior exam(s) dated 07/04/2023 and 06/30/2022. FINDINGS: TISSUE DENSITY: There are scattered areas of fibroglandular density. Bilateral Breast Mammographic Findings: There are 3, well-circumscribed, low density masses in the superior outer aspect of the right breast which require additional workup. The largest mass measures 5 mm. Benign-appearing macrocalcifications, round microcalcifications, and vascular calcifications are seen in the right breast. Stable nodular densities are seen. Benign vascular calcifications, macrocalcifications and round microcalcifications are seen in the left breast. A stable 4 mm partially obscured isodense mass in the inferior medial aspect of the left breast is noted. No suspicious masses, suspicious group of microcalcifications, architectural distortion or secondary sign of malignancy is identified in the left breast. BI/SCRN MAMM (CAD)W/CHRISTIANO BILAT IMPRESSION: There are 3, well-circumscribed, isodense masses in the superior outer aspect o f the right breast which require additional workup. The patient should return for an LM view of the right breast as well a s spot compression CC and spot compression MLO views of the right breast masses. An ultrasound will also most be needed. OVERALL FINAL ASSESSMENT BI-RADS 0: INCOMPLETE - NEED ADDITIONAL IMAGING EVALUATION. RECOMMENDATION: Additional Views obtained/call backs A letter with findings and recommendations will be mailed to the patient. Reading Location: [id number]
--- OUTSIDE RECORDS SUMMARY | 2025-06-10 22:20 | XMS RPT_ITS | CCD ---
Author Organization [facility] Care Team Providers Care Second Miller Name Role Phone Dr. Alex Giang Primary Care Provider Dr. Alex Giang Referring Provider [phone] Dr. Winter Jolley Attending Provider Dr. Alex Giang Primary Care Provider Dr. Alex Giang Referring Provider Dr. Winter Jolley Attending Provider [phone] Dr. Luis Li Attending Provider [phone] Dr. Delta Perez Attending Provider [phone] Dr. Alex Giang Primary Care Provider Dr. Alex Giang Referring Provider Dr. Alex Giang Other Provider Dr. Adrien Abraham Attending Provider PADMAJA ABDI, ALEX Primary Care Physician ZAN ABDI, DR JOSE RAMON Clemons Attending Sathya Rubio MD, ALEX Primary Care Fredis ZULUAGA MD, DR JOSE RAMON Clemons Attending Sathya Rubio MD, ALEX Primary Care Fredis ZULUAGA MD, DR JOSE RAMON Clemons Attending Sathya Rubio MD, ALEX Primary Care Fredis GIANG MD, ALEX Primary Care Fredis ZULUAGA MD, DR JOSE RAMON Clemons Admitting Sathya Pedersen MD, DR JOSE RAMON Clemons Referring Sathya Campbell, RICHARD Fierro Consulting Unavai labarely PAYAN, RICHARD Fierro Attending Chula ZULUAGA MD, DR JOSE RAMON Clemons Attending Unavailab Ramiro ABDI, ALEX Primary Care Unavailable ZAN ABDI, DR JOSE RAMON Clemons Attending Unavailab Ramiro ABDI, ALEX Primary Care Unavailable Dr. Alex Giang Primary Care Provider Dr. Adolfo Rice Attending Provider [phone] Dr. Fredis Edwards Referring Provider [phone] Jose Ramon Zuluaga Admit Provider [phone] Jose Ramon Zuluaga Referring Provider [phone] Dr. Jose Ramon Zuluaga Other Provider Dr. Stefano Avina Attending Provider Dr. Stefano Avina Other Provider Dr. Fredis Quiros Attending Provider [phone] Alex Giang Referring Unavailable Alex Giang Attending Unavailable Alex Giang Primary Care Unavailable Alex Giang Primary Care Unavailable Alex Giang Referring Unavailable Alex Giang Attending Unavailable Alex Giang Primary Care Unavailable Alex Giang Attending Unavailable Alex Giang Primary Care Unavailable Rosalinda Woods Attending Unavailable Alex Giang Primary Care Unavailable Alex Giang Referring Unavailable Alex Giang Attending Unavailable Alex Giang Primary Care Unavailable Víctor Henry Attending Unavailable Alex Giang Primary Care Unavailable Alex Giang Referring Unavailable Alex Giang Attending Unavailable Medications Current Medications Medication Drug Class(es) Dates Sig (Normalized) Sig (Original) acetaminophen 500 mg oral tablet (11 sources) Start: 01-02-2024 take 1000 mg by mouth every six hours Acetaminophen Active 1000 MG PO EVERY 6 HOURS 0 January 02, 2024 12:00am Start: 12-23-2023 take 1000 mg by mout h every eight hours Acetaminophen Active 1000 MG PO EVERY 8 HOURS 0 December 23, 2023 12:00am Start: 11-23-2023 End: 12-23-2023 take 1 tablet by mouth every twelve hours Acetaminophen (Tylenol 8 Hour) 650 mg tablet extended release Discontinued 650 MG PO Q12H November 23, 2023 12:00am December 23, 2023 10:34am Start: 09-21-2023 take 1 tablet by von th once daily Tylenol Dose : 1,000 mg = 2 tab(s), Oral, q6h, not to exceed 3000 mg/day, 0 Refill(s) Start Date: 09/21/23 Status: Ordered Start: 08-26-2023 End: 09-02-2023 acetaminophen 650 mg oral ta blet, extended release Dose : 1,300 mg = 2 tab(s), Oral, Daily, # 21 tab(s), 0 Refill(s) Start Date: 08/26/23 Stop Date: 09/02/23 Status: Ordered aspirin 81 mg chewable tablet (12 sources) Platelet Aggregation Inhibitor, Nonsteroidal Anti-inflammatory Drug Start: 12-23-2023 End: 01-02-2024 take 81 mg by mouth twice daily at mealtime Aspirin Active 81 MG PO TWICE DAILY WITH MEALS 0 January 02, 2024 12:00am Start: 09-21-2023 End: 10-21-2023 take 1 tablet by mouth twice daily at mealtime Aspirin Low Dose 81 mg oral tablet Dose : 81 mg = 1 tab(s), Oral, BID, Take 81 mg aspirin twice daily with food for 4 weeks postoperatively for DVT prophylaxis., # 60 tab(s), 0 Refill(s), [facility]: [facility][id number], 165.1, cm, 09/20/23 13:47:00 EST, Height, kg, 09/20/23 13:47:00 EST, Dosing Weight Start Date: 09/21/23 Stop Date: 10/21/23 Status: Ordered Start: 08-26-2023 aspirin 81 mg oral delayed release tablet Dose : 81 mg = 1 tab(s), Oral, Daily, 0 Refill(s) Start Date: 08/26/23 Status: Ordered Start: 05-26-2023 take 650 mg by mouth once daily Aspirin Active 650 MG PO DAILY May 25, 2023 11:00pm cholecalciferol 0.05 mg oral capsule (15 sources) Vitamin D Start: 06-23-2022 take 50 ug by mouth once daily Cholecalciferol (Vitamin D3) Active 50 MCG PO DAILY June 22, 2022 11:00pm diclofenac sodium 75 mg delayed release oral tablet (20 sources) Nonsteroidal Anti-inflammatory Drug Start: 05-26-2023 take 75 mg by mouth once daily Diclofenac Sodium Active 75 MG PO DAILY May 25, 2023 11:00pm Start: 04-29-2020 End: 06-23-2022 take 75 mg by mouth once daily Diclofenac Sodium Disco ntinued 75 MG PO DAILY April 28, 2020 11:00pm June 23, 2022 8:19am famotidine 20 mg oral tablet (4 sources) Histamine-2 Receptor Antagonist Start: 12-23-2023 take 20 mg by mouth once daily Famotidine Active 20 MG PO DAILY 0 December 23, 2023 12:00am Start: 09-21-2023 Pepcid 20 mg o ral tablet Dose : 20 mg = 1 tab(s), Oral, qDay, # 30 tab(s), 0 Refill(s), [facility][id number], 165.1, cm, 09/20/23 13:47:00 EST, Height, kg, 09/20/23 13:47:00 EST, Dosing Weight Start Date: 09/21/23 Status: Ordered losartan potassium 100 mg oral tablet (1 source) Angiotensin 2 Receptor Carlitos Start: 01-02-2024 take 100 mg by mouth once daily Losartan Active 100 MG PO DAILY January 02, 2024 12:00am lovastatin 40 mg oral tablet (20 sources) HMG-CoA Reductase Inhibitor Start: 04-29-2020 take 40 mg by mouth once daily Lovastatin Active 40 MG PO DAILY April 28, 2020 11:00pm meclizine hydrochloride 25 mg oral tablet (5 sources) Antiemetic Start: 05-26-2023 take 25 mg by mouth four times daily as needed Meclizine Active 25 MG PO 4 TIMES DAILY NEEDED May 25, 2023 11:00pm melatonin 10 mg sublingual tablet (4 sources) Start: 01-02-2024 take 10 mg by mouth at bedtime Melatonin Active 10 MG PO AT BEDTIME 0 January 02, 2024 12:00am Start: 12-23-2023 End: 01-02-2024 take 3 mg by mouth at bedtime Melatonin Discontinued 3 MG PO AT BEDTIME December 23, 2023 12:00am January 02, 2024 7:59am meloxicam 7.5 mg oral tablet (4 sources) Nonsteroidal Anti-inflammatory Drug Start: 12-23-2023 End: 01-02-2024 take 7.5 mg by mouth twice daily at mealtime Meloxicam Active 7.5 MG PO TWICE DAILY WITH MEALS 60 January 02, 2024 12:00am traMADol hydrochloride 50 mg oral tablet (1 source) Opioid Agonist Start: 01-02-2024 take 50 mg by mouth every six hours as needed Tramadol Active 50 MG PO EVERY 6 HOURS NEEDED 28 January 02, 2024 12:00am Vitamin D3 50 mcg (2000 intl units) oral tablet (3 sources) Start: 08-26-2023 Vitamin D3 50 mcg (2000 intl units) oral tablet Dose : 50 mcg = 1 tab(s), Oral, Daily, # 30 tab(s), 0 Refill(s) Start Date: 08/26/23 Status: Ordered vitamin e 180 mg oral capsule (3 sources) Start: 08-26-2023 vitamin E 180 mg oral capsule Dose : 180 mg = 1 cap(s), Oral, qDay, # 100 cap(s), 0 Refill(s) Start Date: 08/26/23 Status: Ordered Completed/Discontinued Medications Medication Drug Class(es) Dates Sig (Normalized) Sig (Original) amLODIPine 5 mg oral tablet (18 sources) Dihydropyridine Calcium Channel Carlitos Start: 04-29-2020 End: 06-23-2022 take 5 mg by mouth once daily Amlodipine Discontinued 5 MG PO DAILY April 28, 2020 11:00pm June 23, 2022 8:19am docusate sodium 50 mg / sennosides, half-way 8.6 mg oral tablet (4 sources) Start: 12-23-2023 End: 01-02-2024 take 2 tablets by mouth twice daily Sennosides-Docusat e Sodium (Stool Softener-Stimulant Laxat) 8.6-50 mg Tablet Discontinued 2 TABLET PO TWICE A DAY 26 03December 23, 2023 12:00am January 02, 2024 7:59am Start: 09-21-2023 End: 09-24-2023 take 1 tablet by mouth twice daily Senokot S 50 mg-8.6 mg oral tablet Dose = 2 tab(s), Oral, BID, Take until first bowel movement, then as needed, X 3 day(s), # 12 tab(s), 0 Refill(s), [facility]: [facility][id number], 165.1, cm, 09/20/23 13:47:00 EST, Height, kg, 09/20/23 13:47:00 EST, Dosing Weight Start Date: 09/21/23 Stop Date: 09/24/23 Status: Ordered lisinopril 10 mg oral tablet (18 sources) Angiotensin Converting Enzyme Inhibitor Start: 06-23-2022 End: 01-02-2024 take 10 mg by mouth once daily Lisinopril Discontinued 10 MG PO DAILY June 22, 2022 11:00pm January 02, 2024 7:59am Nut.Tx.Comp. Immune Systm,Reg (Ensure Surgery) 0.08-1.4 gram-kcal/mL Liquid (3 sources) Start: 12-23-2023 End: 01-02-2024 Nut.Tx.Comp. Immune Systm,Reg (Ensure Surgery) 0.08-1.4 gram-kcal/mL Liquid Discontinued 237 ML PO 3 TIMES DAILY WITH MEALS 0 December 23, 2023 12:00am January 02, 2024 7:59am Start: 12-23-2023 Nut.Tx.Comp. I mmune Systm,Reg (Ensure Surgery) 0.08-1.4 gram-kcal/mL Liquid Active 237 ML PO 3 TIMES DAILY WITH MEALS 0 December 23, 2023 12:00am oxyCODONE hydrochloride 5 mg oral tablet (4 sources) Opioid Agonist Start: 12-23-2023 End: 01-02-2024 take 5-10 mg by mouth every four hours as needed Oxycodone Discontinued 5 - 10 MG PO EVERY 4 HOURS NEEDED 42 5 December 23, 2023 January 02, 2024 7:59am Start: 09-21-2023 End: 09-28-2023 take 1-2 tablets by mouth every four hours as needed for pain oxyCODONE 5 mg oral tablet ( IMMEDIATE release ) See Instructions, PRN as needed for pain, 1-2 tab(s) Oral q4h, # 42 tab(s), 0 Refill(s), 09/28/23 6:58:00 AM EST, [facility]: [facility] #[id number], Status post total right knee replacement, 165.1, cm, 09/20/23 13:47:00 EST, Height, 87.9, kg, 09/20/23 13:47:00 EST, Dosing Weight Start Date: 09/21/23 Stop Date: 09/28/23 Status: Ordered Problems Active Problems Problem Classification Problem Date Documented Da te Episodic/Chronic Conditions associated with dizziness or vertigo (20 sources) Vertigo; Translations: [Dizziness and giddiness] 04-30-2020 Episodic Deficiency and other anemia (2 sources) Anemia; Translations: [Anemia, unspecified] 12-23-2023 Episodic Deficiency and other anemia (2 sources) Anemia, unspecified; Translations: [Anemia, unspecified] 12-23-2023 Episodic Disorders of lipid metabolism (20 sources) Hyperlipidemia; Translations: [Hyperlipidemia, unspecified] Chronic E Codes: Fall (10 sources) Fall; Translations: [Unspecified fall, initial encounter] 05-24-2023 Episodic Essential hypertension (20 sources) Hypertensive disorder; Translations: [Essential (primary) hypertension] Onset: 09-20-2023 Chronic Intracranial injury (9 sources) Concussion injury of body structure; Translations: [Concussion] 05-26-2023 Episodic Malaise and fatigue (4 sources) Asthenia; Translations: [Other malaise] 12-23-2023 Episodic Occlusion or stenosis of precerebral arteries (4 sources) Carotid artery stenosis; Translations: [Occlusion and stenosis of unspecified carotid artery] 12-23-2023 Chronic Open wounds of head; neck; and trunk (10 sources) Scalp laceration; Translations: [Laceration without foreign body of scalp, initial encounter] 05-24-2023 Episodic Osteoarthritis (1 source) Osteoarthritis; Translations: [Unspecified osteoarthritis, unspecified site] Onset: 09-20-2023 Chronic Other bone disease and musculoskeletal deformities (15 sources) Postmenopausal osteopenia; Translations: [Other specified disorders of bone density and structure, unspecified site] 06-23-2022 Episodic Other bone disease and musculoskeletal deformities (6 sources) Other specified disorders of bone density and structure, unspecified site; Translations: [Disorder of bone and cartilage, unspecified] Episodic Other bone disease and musculoskeletal deformities (2 sources) Osteopenia; Translations: [Other specified disorders of bone density and structure, unspecified site] 12-23-2023 Episodic Other connective tissue disease (2 sources) Artificial knee joint present; Translations: [Presence of unspecified artificial knee joint] Onset: 09-20-2023 Chronic Other connective tissue disease (3 sources) History of total knee arthroplasty; Translations: [Presence of left artificial knee joint] 12-22-2023 Chronic Other connective tissue disease (5 sources) Presence of left artificial knee joint; Translations: [Knee joint replacement] 12-23-2023 Chronic Other hereditary and degenerative nervous system conditions (1 source) Mild cognitive impairment, so stated; Translations: [Mild cognitive impairment of uncertain or unknown etiology] Onset: 03-06-2025 Chronic Other injuries and conditions due to external causes (10 sources) Hematoma; Translations: [Other injury of unspecified body region, initial encounter] 05-24-2023 Episodic Other nervous system disorders (2 sources) Disorder of brain; Translations: [Encephalopathy, unspecified] 12-23-2023 Chronic Other nervous system disorders (2 sources) Encephalopathy, unspecified; Translations: [Encephalopathy, unspecified] 12-23-2023 Chronic Other nervous system disorders (1 source) Impaired cognition; Translations: [Other symptoms and signs involving cognitive functions and awareness] Onset: 09-21-2023 Episodic Other nervous system disorders (3 sources) Acute postoperative pain; Translations: [Other acute postprocedural pain] 12-23-2023 Episodic Other screening for suspected conditions (not mental disorders or infectious disease) (1 source) Encounter for screening mammogram for malignant neoplasm of breast; Translations: [Encounter for screening mammogram for malignant neoplasm of breast] Onset: 06-06-2025 Episodic Residual codes; unclassified (2 sources) Edema of left lower limb; Translations: [Localized edema] 12-23-2023 Episodic Residual codes; unclassified (2 sources) Localized edema; Translations: [Edema] 12-23-2023 Episodic Skin and subcutaneous tissue infections (4 sources) Cellulitis of left knee; Translations: [Cellulitis of left lower limb] 12-23-2023 Episodic Past or Other Problems Problem Classification Problem Date Documented Da te Episodic/Chronic Genitourinary symptoms and ill-defined conditions (1 source) Hematuria, unspecified; Translations: [Hematuria, unspecified] Onset: 07-16-2024 Episodic Other bone disease and musculoskeletal deformities (1 source) Other specified disorders of bone density and structure, multiple sites; Translations: [Other specified disorders of bone density and structure, multiple sites] Onset: 09-08-2024 Episodic Other injuries and conditions due to external causes (1 source) Encounter for examination and observation following other accident; Translations: [Encounter for examination and observation following other accident] Onset: 11-05-2024 Episodic Results Test Name Value Interpretation Reference Range Facility CBC-Complete Blood Cnt No Di ffon 02-27-2025 Erythrocyte distribution width (RBC) [Ratio] 13.7 % Normal 11.6-14.6 [facility] Comment on above: Performed By: #### L [id number], L100.0500, L506.1001, L500.4050, L503.0106 #### [facility] [address] [place], [address] Hematocrit (Bld) [Volume fraction] 36.4 % Low 37-47 [facility] Comment on above: Performed By: #### L [id number], L100.0500, L506.1001, L500.4050, L503.0106 #### [facility] [address] [place], [address] Hemoglobin (Bld) [Mass/Vol] 12.1 g/dL Normal 12.0-15.0 [facility] Comment on above: Performed By: #### L [id number], L100.0500, L506.1001, L500.4050, L503.0106 #### [facility] [address] [place], [address] MCH (RBC) [Entitic mass] 30.3 pg Normal 27.0-32.0 [facility] Comment on above: Performed By: #### L [id number], L100.0500, L506.1001, L500.4050, L503.0106 #### [facility] [address] [place], [address] MCHC (RBC) [Mass/Vol] 33.2 g/dL Normal 32-[address] [facility] Comment on above: Performed By: #### L [id number], L100.0500, L506.1001, L500.4050, L503.0106 #### [facility] [address] [place], [address] MCV (RBC) [Entitic vol] 91.0 fL Normal 81-99 [facility] Comment on above: Performed By: #### L [id number], L100.0500, L506.1001, L500.4050, L503.0106 #### [facility] [address] [place], [address] Platelet mean volume (Bld) [Entitic vol] 10.7 fL Normal 6.2-12.0 [facility] Comment on above: Performed By: #### L [id number], L100.0500, L506.1001, L500.4050, L503.0106 #### [facility] [address] [place], [address] Platelets (Bld) [#/Vol] 177 10*3/uL Normal 150-450 [facility] Comment on above: Performed By: #### L [id number], L100.0500, L506.1001, L500.4050, L503.0106 #### [facility] [address] [place], [address] RBC (Bld) [#/Vol] 4.00 10*6/uL Low 4.2-5.4 [facility] Comment on above: Performed By: #### L [id number], L100.0500, L506.1001, L500.4050, L503.0106 #### [facility] [address] [place], [address] RDW SD 46.1 fl High 35.1-43.9 [facility] Comment on above: Performed By: #### L [id number], L100.0500, L506.1001, L500.4050, L503.0106 #### [facility] [address] [place], [address] WBC (Bld) [#/Vol] 4.9 10*3/uL Normal 4.4-11.0 [facility] Comment on above: Performed By: #### L [id number], L100.0500, L506.1001, L500.4050, L503.0106 #### [facility] [address] [place], [address] Comprehensive Metabolic Prof ncon 02-27-2025 Albumin [Mass/Vol] 4.3 g/dL Normal 3.4-4.8 [facility] Comment on above: Performed By: #### L [id number], L100.0500, L506.1001, L500.4050, L503.0106 #### [facility] [address] [place], [address] Albumin/Globulin [Mass ratio] 1.8 {ratio} Normal 0.9-2.4 [facility] Comment on above: Performed By: #### L [id number], L100.0500, L506.1001, L500.4050, L503.0106 #### [facility] [address] [place], [address] ALK PHOS 88 U/L Normal 35-104 [facility] Comment on above: Performed By: #### L [id number], L100.0500, L506.1001, L500.4050, L503.0106 #### [facility] [address] [place], [address] ALT [Catalytic activity/Vol] 13 U/L Normal <=34 [facility] Comment on above: Performed By: #### L [id number], L100.0500, L506.1001, L500.4050, L503.0106 #### [facility] [address] [place], [address] AST [Catalytic activity/Vol] 20 U/L Normal <=31 [facility] Comment on above: Performed By: #### L [id number], L100.0500, L506.1001, L500.4050, L503.0106 #### [facility] [address] [place], [address] Bilirubin [Mass/Vol] 0.43 mg/dL Normal 0.00-1.30 [facility] Comment on above: Performed By: #### L [id number], L100.0500, L506.1001, L500.4050, L503.0106 #### [facility] [address] [place], [address] BUN/CRE 21.3 RATIO High 10-20 [facility] Comment on above: Performed By: #### L [id number], L100.0500, L506.1001, L500.4050, L503.0106 #### [facility] [address] [place], [address] Calcium [Mass/Vol] 9.6 mg/dL Normal 7.6-11.0 [facility] Comment on above: Performed By: #### L [id number], L100.0500, L506.1001, L500.4050, L503.0106 #### [facility] [address] [place], [address] Chloride [Moles/Vol] 105 mmol/L Normal 98-108 [facility] Comment on above: Performed By: #### L [id number], L100.0500, L506.1001, L500.4050, L503.0106 #### [facility] [address] [place], [address] CO2 [Moles/Vol] 24.0 mmol/L Normal 21.0-32.0 [facility] Comment on above: Performed By: #### L [id number], L100.0500, L506.1001, L500.4050, L503.0106 #### [facility] [address] [place], [address] Creatinine [Mass/Vol] 0.85 mg/dL Normal 0.70-1.[address] [facility] Comment on above: Performed By: #### L [id number], L100.0500, L506.1001, L500.4050, L503.0106 #### [facility] [address] [place], [address] GAP 12 Normal 5-15 [facility] Comment on above: Performed By: #### L 501.9520, L100.0500, L506.1001, L500.4050, L503.0106 #### [facility] [address] [place], [address] GFR/1.73 sq M.predicted among non-blacks MDRD (S/P/Bld) [Vol rate/Area] 68 mL/min/{1.73_m2} Normal >60 [facility] Comment on above: Result Comment: mL/m in/1.73m2 CKD-EPI Creatinine Equation (2020) Performed By: #### L [id number], L100.0500, L506.1001, L500.4050, L503.0106 #### [facility] [address] [place], [address] Globulin (S) [Mass/Vol] 2.4 g/dL Normal 2.2-4.2 [facility] Comment on above: Performed By: #### L [id number], L100.0500, L506.1001, L500.4050, L503.0106 #### [facility] [address] [place], [address] Glucose [Mass/Vol] 99 mg/dL Normal 70-99 [facility] Comment on above: Performed By: #### L 501.9520, L100.0500, L506.1001, L500.4050, L503.0106 #### [facility] [address] [place], [address] Potassium [Moles/Vol] 3.7 mmol/L Normal 3.3-5.[address] [facility] Comment on above: Performed By: #### L [id number], L100.0500, L506.1001, L500.4050, L503.0106 #### [facility] [address] [place], [address] Sodium [Moles/Vol] 141 mmol/L Normal 133-145 [facility] Comment on above: Performed By: #### L [id number], L100.0500, L506.1001, L500.4050, L503.0106 #### [facility] [address] [place], [address] T PROT 6.7 g/dL Normal 5.9-8.4 [facility] Comment on above: Performed By: #### L [id number], L100.0500, L506.1001, L500.4050, L503.0106 #### [facility] [address] [place], [address] Urea nitrogen [Mass/Vol] 18 mg/dL Normal 4-19 [facility] Comment on above: Performed By: #### L [id number], L100.0500, L506.1001, L500.4050, L503.0106 #### [facility] [address] [place], [address] Thyroid Stim Hormone (TSH)on 02-27-2025 TSH 1.630 uIU/mL Normal 0.300-4.200 [facility] Comment on above: Performed By: #### L [id number], L100.0500, L506.1001, L500.4050, L503.0106 #### [facility] [address] [place], [address] Vitamin B12on 02-27-2025 Cobalamin (Vitamin B12) [Mass/Vol] 337 pg/mL Normal 180-914 [facility] Comment on above: Performed By: #### L [id number], L100.0500, L506.1001, L500.4050, L503.0106 #### [facility] [address] [place], [address] Vitamin D,25 Hydroxyon 02-27 Vitamin D 25-OH 28.0 ng/mL Low 30-100 [facility] Comment on above: Result Comment: Cindi min D Status Deficiency: <20 ng/mL (50nmol/L) Insufficiency: 20-30 ng/mL (50-75 nmol/L) Sufficiency: 30-100 ng/mL (75-250 nmol/L) Toxicity: >100 ng/mL (>250 nmol/L) Performed By: #### L [id number], L100.0500, L506.1001, L500.4050, L503.0106 #### [facility] [address] [place], [address] CBC W/Diff, Automatedon 11-0 Absolute Lymph 1.71 X10 3/uL Normal 0.83-4.51 [facility] Comment on above: Performed By: #### L [id number], L100.0500, L506.1001, L500.4050, L503.0106 #### [facility] [address] [place], [address] Absolute Neut 2.5 X10 3/uL Normal 2.0-7.7 [facility] Comment on above: Performed By: #### L [id number], L100.0500, L506.1001, L500.4050, L503.0106 #### [facility] [address] [place], [address] Basophils/100 WBC (Bld) 1.0 % Normal 0-1 [facility] Comment on above: Performed By: #### L [id number], L100.0500, L506.1001, L500.4050, L503.0106 #### [facility] [address] [place], [address] Eosinophils/100 WBC (Bld) 1.3 % Normal 0-5 [facility] Comment on above: Performed By: #### L 501.9520, L100.0500, L506.1001, L500.4050, L503.0106 #### [facility] [address] [place], [address] Erythrocyte distribution width (RBC) [Ratio] 13.8 % Normal 11.6-14.6 [facility] Comment on above: Performed By: #### L 501.9520, L100.0500, L506.1001, L500.4050, L503.0106 #### [facility] [address] [place], [address] Hematocrit (Bld) [Volume fraction] 38.5 % Normal 37-47 [facility] Comment on above: Performed By: #### L 501.9520, L100.0500, L506.1001, L500.4050, L503.0106 #### [facility] [address] [place], [address] Hemoglobin (Bld) [Mass/Vol] 13.1 g/dL Normal 12.0-15.0 [facility] Comment on above: Performed By: #### L 501.9520, L100.0500, L506.1001, L500.4050, L503.0106 #### [facility] [address] [place], [address] IG% 0.200 Normal 0.0-0.9 [facility] Comment on above: Result Comment: IG% - Immature Granulocytes (promyelocytes, myelocytes and metamyelocytes) > 1% indicates that a LEFT SHIFT is Present. Performed By: #### L 501.9520, L100.0500, L506.1001, L500.4050, L503.0106 #### [facility] [address] [place], [address] Lymphocytes/100 WBC (Bld) 35.8 % Normal 19-41 [facility] Comment on above: Performed By: #### L 501.9520, L100.0500, L506.1001, L500.4050, L503.0106 #### [facility] [address] [place], [address] MCH (RBC) [Entitic mass] 30.0 pg Normal 27.0-32.0 [facility] Comment on above: Performed By: #### L 501.9520, L100.0500, L506.1001, L500.4050, L503.0106 #### [facility] [address] [place], [address] MCHC (RBC) [Mass/Vol] 34.0 g/dL Normal 32-[address] [facility] Comment on above: Performed By: #### L 501.9520, L100.0500, L506.1001, L500.4050, L503.0106 #### [facility] [address] [place], [address] MCV (RBC) [Entitic vol] 88.1 fL Normal 81-99 [facility] Comment on above: Performed By: #### L 501.9520, L100.0500, L506.1001, L500.4050, L503.0106 #### [facility] [address] [place], [address] Monocytes/100 WBC (Bld) 9.6 % Normal 0-10 [facility] Comment on above: Performed By: #### L 501.9520, L100.0500, L506.1001, L500.4050, L503.0106 #### [facility] [address] [place], [address] Neutrophils/100 WBC (Bld) 52.1 % Normal 47-70 [facility] Comment on above: Performed By: #### L 501.9520, L100.0500, L506.1001, L500.4050, L503.0106 #### [facility] [address] [place], [address] Nucleated RBC (Bld) [#/Vol] 0 10*3/uL Normal 0-5 [facility] Comment on above: Performed By: #### L 501.9520, L100.0500, L506.1001, L500.4050, L503.0106 #### [facility] [address] [place], [address] Platelet mean volume (Bld) [Entitic vol] 10.7 fL Normal 6.2-12.0 [facility] Comment on above: Performed By: #### L 501.9520, L100.0500, L506.1001, L500.4050, L503.0106 #### [facility] [address] [place], [address] Platelets (Bld) [#/Vol] 191 10*3/uL Normal 150-450 [facility] Comment on above: Performed By: #### L 501.9520, L100.0500, L506.1001, L500.4050, L503.0106 #### [facility] [address] [place], [address] RBC (Bld) [#/Vol] 4.37 10*6/uL Normal 4.2-5.4 [facility] Comment on above: Performed By: #### L 501.9520, L100.0500, L506.1001, L500.4050, L503.0106 #### [facility] [address] [place], [address] RDW SD 44.5 fl High 35.1-43.9 [facility] Comment on above: Performed By: #### L 501.9520, L100.0500, L506.1001, L500.4050, L503.0106 #### [facility] [address] [place], [address] WBC (Bld) [#/Vol] 4.8 10*3/uL Normal 4.4-11.0 [facility] Comment on above: Performed By: #### L 501.9520, L100.0500, L506.1001, L500.4050, L503.0106 #### [facility] [address] [place], [address] Comprehensive Metabolic Prof [facility] 09-13-2024 Albumin [Mass/Vol] 3.8 g/dL Normal 3.2-5.0 [facility] Comment on above: Order Comment: Order Date: 10/18/23Order Info: 0667-1 - BMPUA W/ MICRO Performed By: #### L 501.9520, L100.0500, L506.1001, L500.4050, L503.0106 #### [facility] [address] [place], [address] Albumin/Globulin [Mass ratio] 1.2 {ratio} Normal 0.9-2.4 [facility] Comment on above: Order Comment: Order Date: 10/18/23Order Info: 0667-1 - BMPUA W/ MICRO Performed By: #### L 501.9520, L100.0500, L506.1001, L500.4050, L503.0106 #### [facility] [address] [place], [address] ALK P 105 U/L Normal 45-117 [facility] Comment on above: Order Comment: Order Date: 10/18/23Order Info: 0667-1 - BMPUA W/ MICRO Performed By: #### L 501.9520, L100.0500, L506.1001, L500.4050, L503.0106 #### [facility] [address] [place], [address] ALT [Catalytic activity/Vol] 19 U/L Normal 13-56 [facility] Comment on above: Order Comment: Order Date: 10/18/23Order Info: 0667-1 - BMPUA W/ MICRO Performed By: #### L 501.9520, L100.0500, L506.1001, L500.4050, L503.0106 #### [facility] [address] [place], [address] AST [Catalytic activity/Vol] 17 U/L Normal 15-37 [facility] Comment on above: Order Comment: Order Date: 10/18/23Order Info: 0667-1 - BMPUA W/ MICRO Performed By: #### L 501.9520, L100.0500, L506.1001, L500.4050, L503.0106 #### [facility] [address] [place], [address] Bilirubin [Mass/Vol] 0.60 mg/dL Normal 0.20-1.00 [facility] Comment on above: Order Comment: Order Date: 10/18/23Order Info: 0667-1 - BMPUA W/ MICRO Result Comment: For patients on eltrombopag therapy, use of Dimension Mobile TBIL is not recommended. Performed By: #### L 501.9520, L100.0500, L506.1001, L500.4050, L503.0106 #### [facility] [address] [place], [address] BUN/CRE 21.1 RATIO High 10-20 [facility] Comment on above: Order Comment: Order Date: 10/18/23Order Info: 0667-1 - BMPUA W/ MICRO Performed By: #### L 501.9520, L100.0500, L506.1001, L500.4050, L503.0106 #### [facility] [address] [place], [address] CA,Total 9.5 mg/dL Normal 8.5-10.1 [facility] Comment on above: Order Comment: Order Date: 10/18/23Order Info: 06 - BMPUA W/ MICRO Performed By: #### L 501.9520, L100.0500, L506.1001, L500.4050, L503.0106 #### [facility] [address] [place], [address] Chloride [Moles/Vol] 106 mmol/L Normal 98-107 [facility] Comment on above: Order Comment: Order Date: 10/18/23Order Info: 0667- - BMPUA W/ MICRO Performed By: #### L 501.9520, L100.0500, L506.1001, L500.4050, L503.0106 #### [facility] [address] [place], [address] CO2 [Moles/Vol] 25.0 mmol/L Normal 21.0-32.0 [facility] Comment on above: Order Comment: Order Date: 10/18/23Order Info: 0667-1 - BMPUA W/ MICRO Performed By: #### L 501.9520, L100.0500, L506.1001, L500.4050, L503.0106 #### [facility] [address] [place], [address] Creatinine [Mass/Vol] 0.81 mg/dL Normal 0.55-1.[address] [facility] Comment on above: Order Comment: Order Date: 10/18/23Order Info: 0667-1 - BMPUA W/ MICRO Result Comment: The validity of the calculated GFR GFRAA in patients over 70 years has not been determined. Clinical correlation is essential. Performed By: #### L 501.9520, L100.0500, L506.1001, L500.4050, L503.0106 #### [facility] [address] [place], [address] EST GFR - AA 87 mL/min Normal >60 [facility] Comment on above: Order Comment: Order Date: 10/18/23Order Info: 0667-1 - BMPUA W/ MICRO Result Comment: Afri can Iraqi GFR Calc Performed By: #### L 501.9520, L100.0500, L506.1001, L500.4050, L503.0106 #### [facility] [address] [place], [address] GAP 5 Normal 5-15 [facility] Comment on above: Order Comment: Order Date: 10/18/23Order Info: 0667-1 - BMPUA W/ MICRO Performed By: #### L 501.9520, L100.0500, L506.1001, L500.4050, L503.0106 #### [facility] [address] [place], [address] GFR/1.73 sq M.predicted among non-blacks MDRD (S/P/Bld) [Vol rate/Area] 72 mL/min/{1.73_m2} Normal >60 [facility] Comment on above: Order Comment: Order Date: 10/18/23Order Info: 0667-1 - BMPUA W/ MICRO Result Comment: Non- GFR Calc Performed By: #### L 501.9520, L100.0500, L506.1001, L500.4050, L503.0106 #### [facility] [address] [place], [address] Globulin (S) [Mass/Vol] 3.3 g/dL Normal 2.2-4.2 [facility] Comment on above: Order Comment: Order Date: 10/18/23Order Info: 0667-1 - BMPUA W/ MICRO Performed By: #### L 501.9520, L100.0500, L506.1001, L500.4050, L503.0106 #### [facility] [address] [place], [address] Glucose [Mass/Vol] 94 mg/dL Normal 74-106 [facility] Comment on above: Order Comment: Order Date: 10/18/23Order Info: 0667 - BMPUA W/ MICRO Performed By: #### L 501.9520, L100.0500, L506.1001, L500.4050, L503.0106 #### [facility] [address] [place], [address] Potassium [Moles/Vol] 4.2 mmol/L Normal 3.5-5.[address] [facility] Comment on above: Order Comment: Order Date: 10/18/23Order Info: 0667- - BMPUA W/ MICRO Performed By: #### L 501.9520, L100.0500, L506.1001, L500.4050, L503.0106 #### [facility] [address] [place], [address] Sodium [Moles/Vol] 136 mmol/L Normal 136-145 [facility] Comment on above: Order Comment: Order Date: 10/18/23Order Info: 0667-1 - BMPUA W/ MICRO Performed By: #### L 501.9520, L100.0500, L506.1001, L500.4050, L503.0106 #### [facility] [address] [place], [address] T PROT 7.1 g/dL Normal 6.4-8.2 [facility] Comment on above: Order Comment: Order Date: 10/18/23Order Info: 0667-1 - BMPUA W/ MICRO Performed By: #### L 501.9520, L100.0500, L506.1001, L500.4050, L503.0106 #### [facility] [address] [place], [address] Urea nitrogen [Mass/Vol] 17 mg/dL Normal 7-18 [facility] Comment on above: Order Comment: Order Date: 10/18/23Order Info: 0667-1 - BMPUA W/ MICRO Performed By: #### L 501.9520, L100.0500, L506.1001, L500.4050, L503.0106 #### [facility] [address] [place], [address] Lipid Profileon 09-13-2024 Cholesterol [Mass/Vol] 255 mg/dL High 200 [facility] Comment on above: Order Comment: Order Date: 10/18/23Order Info: 0667-1 - BMPUA W/ MICRO Result Comment: <200 mg/dL Desirable 200-240 mg/dL Borderline >240 mg/dL High Risk Performed By: #### L 501.9520, L100.0500, L506.1001, L500.4050, L503.0106 #### [facility] [address] [place], [address] Cholesterol in HDL [Mass/Vol] 83 mg/dL Normal [facility] Comment on above: Order Comment: Order Date: 10/18/23Order Info: 0667-1 - BMPUA W/ MICRO Result Comment: The drugs N-Acetylcysteine and Metamizole may falsely depress this assay. Reference Range HDL <40 mg/dL Low HDL Cholesterol HDL >or= 60 mg/dL High HDL Cholesterol Performed By: #### L 501.9520, L100.0500, L506.1001, L500.4050, L503.0106 #### [facility] [address] [place], [address] Cholesterol in LDL [Mass/Vol] 143 mg/dL High 0-130 [facility] Comment on above: Order Comment: Order Date: 10/18/23Order Info: 0667-1 - BMPUA W/ MICRO Performed By: #### L 501.9520, L100.0500, L506.1001, L500.4050, L503.0106 #### [facility] [address] [place], [address] Cholesterol in VLDL [Mass/Vol] 29 mg/dL Normal 5-40 [facility] Comment on above: Order Comment: Order Date: 10/18/23Order Info: 0667-1 - BMPUA W/ MICRO Performed By: #### L 501.9520, L100.0500, L506.1001, L500.4050, L503.0106 #### [facility] [address] [place], [address] Triglyceride [Mass/Vol] 145 mg/dL Normal [facility] Comment on above: Order Comment: Order Date: 10/18/23Order Info: 0667-1 - BMPUA W/ MICRO Result Comment: The drugs N-Acetylcysteine and Metamizole may falsely depress this assay. Serum Triglycerides Reference Interval Normal <150 mg/dL Borderline high 150 - 199 mg/dL High 200 - 499 mg/dL Very High > or = 500 mg/dL Performed By: #### L 501.9520, L100.0500, L506.1001, L500.4050, L503.0106 #### [facility] [address] [place], [address] Magnesiumon 09-13-2024 Magnesium [Mass/Vol] 2.2 mg/dL Normal 1.6-2.6 [facility] Comment on above: Order Comment: Order Date: 10/18/23Order Info: 0667-1 - BMPUA W/ MICRO Performed By: #### L 501.9520, L100.0500, L506.1001, L500.4050, L503.0106 #### [facility] [address] [place], [address] Thyroid Stim Hormone (TSH)on 09-13-2024 TSH 1.980 uIU/mL Normal 0.358-3.740 [facility] Comment on above: Order Comment: Order Date: 10/18/23Order Info: 0667-1 - BMPUA W/ MICRO Performed By: #### L 501.9520, L100.0500, L506.1001, L500.4050, L503.0106 #### [facility] [address] [place], [address] Urinalysis, Completeon 09-13 BACTERIA 3+ /hpf Normal None Seen [facility] Comment on above: Order Comment: UA W/ MICROUrine, Random Performed By: #### L 501.9520, L100.0500, L506.1001, L500.4050, L503.0106 #### [facility] [address] [place], [address] EPI,SQUAMOUS 0-5 SEEN Normal 5-10 [facility] Comment on above: Order Comment: UA W/ MICROUrine, Random Performed By: #### L 501.9520, L100.0500, L506.1001, L500.4050, L503.0106 #### [facility] [address] [place], [address] RBC 0-5 SEEN Normal 0-5 [facility] Comment on above: Order Comment: UA W/ MICROUrine, Random Performed By: #### L 501.9520, L100.0500, L506.1001, L500.4050, L503.0106 #### [facility] [address] [place], [address] WBC 0-5 SEEN Normal 0-5 [facility] Comment on above: Order Comment: UA W/ MICROUrine, Random Performed By: #### L 501.9520, L100.0500, L506.1001, L500.4050, L503.0106 #### [facility] [address] [place], [address] Mucus Ql (Urine sed) 0 SEEN Normal [facility] Comment on above: Order Comment: UA W/ MICROUrine, Random Performed By: #### L 501.9520, L100.0500, L506.1001, L500.4050, L503.0106 #### [facility] [address] [place], [address] Vitamin D,25 Hydroxyon 09-13 Vitamin D 25-OH 24.0 ng/mL Normal [facility] Comment on above: Result Comment: Cindi min D 25(OH) Status Range Deficiency <20 ng/mL (50nmol/L) Insufficiency 20 - 30 ng/mL (50 - 75 nmol/L) Sufficiency 30 - 100 ng/mL (75 - 250 nmol/L) Toxicity >100 ng/mL (>250 nmol/L) Performed By: #### L 501.9520, L100.0500, L506.1001, L500.4050, L503.0106 #### [facility] [address] [place], [address] Emergency Department Summary on 08-10-2024 Emergency Department Summary [facility] Medical Records Department [address] [place] [address] Emergency Department Summary 08/10/24 MR#: [id number] Acct: [id number] Name: FRED MON Rep #: [id number] : 1940 83 From: Víctor Henry DO PCP: Dr. Alex Giang MD Status:DEP ER Location: ED HPI History of Present Illness Chief Complaint: Fall Informant: patient Narrative Narrative: Patient is an 83-year-old female with past medical history hypertension hyperlipidemia and osteopenia. She states on around 3 in the afternoon she was walking into her bathroom when her 1 slipper began to fall off which caused her to trip and fall. She states she landed on her left side and struck her left chest/ribs off a scale on the ground. She denies striking her head or any loss of consciousness. She denies any history of bleeding disorder or blood thinner use. She states she was able to get up shortly after the fall but as time is passed she has been having increasing pain to the rib region and has concern for potential fracture and therefore comes in for evaluation. [facility] Medical History (Updated 08/10/24 @ 05:[address] Víctor Henry, DO) Wears glasses Post-menopausal Walker as ambulation aid Ambulates with cane Arthritis High cholesterol Injury of head and neck Non-smoker Shortness of breath on exertion History of edema History of echocardiogram History of stress test Hyperlipidemia Hypertension Home Medications ???Medication ???Instructions ???Recorded ???Last Taken ???Type lovastatin 40 mg tablet 40 mg PO DAILY Cholesterol 04/29/20 12/22/23 21:40 History cholecalciferol (vitamin D3) 50 50 mcg PO DAILY health maintenance 06/23/22 12/23/23 09:30 History mcg (2,000 unit) capsule acetaminophen 500 mg tablet 1,000 mg (2 x 500 mg) PO Q8 pain 12/23/23 12/23/23 09:30 Rx #0 tabs famotidine 20 mg tablet 20 mg PO DAILY Acid #0 tabs 12/23/23 12/23/23 09:30 Rx acetaminophen 500 mg tablet 1,000 mg (2 x 500 mg) PO Q6 #0 tabs 01/02/24 Unknown Rx aspirin 81 mg chewable tablet 81 mg PO BIDCM 14 days #0 tabs 01/02/24 Unknown Rx losartan 100 mg tablet 100 mg PO DAILY 30 days #30 tabs 01/02/24 Unknown Rx melatonin 10 mg sublingual tablet 10 mg PO QHS #0 tabs 01/02/24 Unknown Rx meloxicam 7.5 mg tablet 7.5 mg PO BIDCM 30 days #60 tabs 01/02/24 Unknown Rx tramadol 50 mg tablet 50 mg PO Q6H PRN PRN Pain Score 01/02/24 Unknown Rx 1-10 7 days #28 tabs gabapentin 300 mg capsule 300 mg PO TID PRN pain 5 days #15 08/10/24 Unknown Rx caps oxycodone 5 mg tablet 5 mg PO Q6H PRN pain 5 days #20 08/10/24 Unknown Rx tabs Allergy/AdvReac Type Severity Reaction Status Date / Time No Known Allergies Allergy Verified 12/21/23 06:41 Surgical History Status post total left knee replacement Hx of colonoscopy Hx of left knee surgery Hx of total knee replacement Social History Smoking Status: Former smoker alcohol intake: never substance use type: does not use caffeine: Yes what type of physical activity do you participate in: none seatbelt use: always do you feel safe at home: Yes additional social history: ROS ROS ED Constitutional Constitutional ED: Denies chills or fever(s) Eyes Eyes: Denies blurry vision or change in vision ENT ENT ED: Denies sore throat Cardiovascular Cardiovascular: Denies chest pain Respiratory/Chest Respiratory/Chest: Denies cough or dyspnea Gastrointestinal Gastrointestinal: Denies abdominal pain, diarrhea, nausea or vomiting Genitourinary Genitourinary ED: Denies dysuria Musculoskeletal Musculoskeletal: Reports other Details: Positive left rib pain ; Denies back pain or neck pain Integumentary Denies Abrasions or rash Neurologic Neurologic: Denies headache(s) Hematologic/Lymphatic Hematologic/Lymphatic: Denies easy bleeding or easy bruising EXAM Physical Exam Const Vital Signs: 08/10/24 02:08 08/10/24 02:09 08/10/24 02:13 Temperature 98.1 F Temperature Source Oral Pulse Rate 65 Respiratory Rate 18 Respiratory Effort Normal Non-Labored Respiratory Depth Normal Respiratory Pattern Normal Blood Pressure 243/99 H 243/99 H Blood Pressure Mean 147 147 Pulse Ox 97 Oxygen Delivery Method Room Air Room Air 08/10/24 04:08 08/10/24 05:02 Temperature 97.8 F Temperature Source Pulse Rate 81 65 Respiratory Rate 18 18 Respiratory Effort Respiratory Depth Respiratory Pattern Blood Pressure 203/87 H 179/85 H Blood Pressure Mean 125 116 Pulse Ox 98 97 Oxygen Delivery Method Room Air Positive well nourished and well developed General Appearance ED: well developed HEENT HEENT Narrat (more content not included)... [facility] Uni Min 3V w/PA Cheston 08-10-2024 Ribs Uni Min 3V w/PA Chest [facility] Imaging Services [address] [place] [address] Ribs Uni Min 3V w/PA Chest MR#: [id number] Acct: [id number] Name: FRED MON Rep #: [id number] : 1940 F 83 From: Truong Saba MD PCP: Dr. Alex Giang MD Status: REG ER Study: Ribs Uni Min 3V w/PA Chest Date of Exam: 08/10 Exam# [id number] Ordering Dr: Ví[place] [id number] INDICATION: PAIN EXAMINATION/TECHNIQUE: X-RAY - XR Ribs Unilateral W/ PA Chest Min 3 Views COMPARISON: None. Findings: Single frontal view of the chest. 2 dedicated views of the left ribs. LUNG PARENCHYMA: No acute focal airspace disease or mass lesion. PLEURA: No pleural effusion. No pneumothorax. HEART/GREAT VESSELS: Cardiomediastinal silhouette is unremarkable. BONES: Displaced left lateral ninth rib fracture. RAD/Ribs Uni Min 3V w/PA Chest IMPRESSION: Displaced left lateral ninth rib fracture. Chest with no other significant acute disease. Electronically Signed: Truong Saba MD at 4:50 EDT , CC: Dr. Alex Giang MD; Víctor Henry DO Director Career Services: Signed Normal [facility] Dexa Bone Density Studyon Dexa Bone Density Study [facility] Imaging Services [address] [place] [address] Dexa Bone Density Study MR#: [id number] Acct: [id number] Name: FRED MON Rep #: [id number] : 1940 F 83 From: Fady crane MD PCP: Dr. Alex Giang MD Status: REG CLI Study: Dexa Bone Density Study Date of Exam: 08/07/24 Exam# [id number] Ordering [place]: [place] [id number] STUDY: DUAL ENERGY X-RAY ABSORPTIOMETRY / DXA REASON FOR EXAM: Female, 83 years old. M85.89 TECHNIQUE: Bone Mineral Density (BMD) measurements of lumbar spine and bilateral hips were obtained. COMPARISON: Comparison is made with prior study dated April 01, 2022. FINDINGS: Lumbar Spine (L1-L4): g/cm2 (0.857) / T-score (-1.1) / Z-score (1.5) Findings are suggestive of osteopenia with a low fracture risk. Left Femur Total: g/cm2 (0.789) / T-score (-1.3) / Z-score (1.0) Left Femoral Neck: g/cm2 (0.604) / T-score (-2.2) / Z-score (0.3) Right Femur Total: g/cm2 (0.694) / T-score (-2.0) / Z-score (0.2) Right Femoral Neck: g/cm2 (0.574) / T-score (-2.5) / Z-score (0.0) The T-Scores on the most recent prior examination were: Lumbar Spine (L1-L4): There has been improvement of bone density since the previous examination. Left Femur Total: which represents an improvement of 2.6%. Right Femur Total: which represents a worsening of 6.2%. BD/Dexa Bone Density Study IMPRESSION: The patient is considered osteoporotic as outlined below according to World Brad Organization (WHO) criteria with a high fracture risk. There has been worsening of bone density since the previous examination. Reference Information: The T-score is the number of standard deviations above or below the standard which is normal for young adults at their peak bone mineral density. The World Health Organization (WHO) interprets the T-scores as follows: Above -1 Normal bone density Between -1 and -2.5 Osteopenia Equal to / or below -2.5 Osteoporosis As a practical clinical guideline, osteopenia may be graded as follows: Mild -1 through -1.5 Moderate -1.6 through -2.0 Severe -2.1 through -2.4 The Z-score is the number of standard deviations above or below age-matched controls. A Z-score of less than -1.5 would be considered abnormal. References: 1. NIH Osteoporosis and Related Bone Diseases www osteo.org 2. International Society for Clinical Densitometry www iscd.org 3. National Osteoporosis Foundation www nof.org Electronically Signed: Fady Ryder MD at 10:26 EDT , CC: Dr. Alex Giang MD Director Career Services: Signed Normal [facility] Urine Cultureon 07-08-2024 [facility] Escherichia coli [place] Count >100,000 Escherichia coli: REACTION Ampicillin Islt VJ 4 S Ampicillin+Sulbac Islt VJ <=2 S ceFAZolin Islt VJ <=4 S Cefepime Islt VJ <=0.12 S cefTRIAXone Islt VJ <=0.25 S Ciprofloxacin Islt VJ <=0.25 S Ertapenem Islt VJ <=0.12 S B-Lactamase Extended Susc Islt NEG Gentamicin Islt VJ <=1 S Imipenem Islt VJ <=0.25 S levoFLOXacin Islt VJ <=0.12 S Nitrofurantoin Islt VJ <=16 S Pip+Tazo Islt VJ <=4 S Tobramycin Islt VJ <=1 S TMP SMX Islt VJ <=20 S Normal [facility] Comment on above: Performed By: #### L 501.9494, L100.3130, L506.1001, L500.4050, L503.0106 #### [facility] [address] [place], [address] Basic Metabolic Profile (BMP )on 07-06-2024 BUN/CRE 21.7 RATIO High 10-20 [facility] Comment on above: Order Comment: Order Date: 07/06/24 Order Info: 666-11 - BMP Order Info: 3016-01 - TSH fatigue Performed By: #### L 506.1000, L500.2500, L501.9520, L100.0100 #### [facility] [address] [place], [address] CA,Total 9.5 mg/dL Normal 8.5-10.1 [facility] Comment on above: Order Comment: Order Date: 07/06/24 Order Info: 666-11 - BMP Order Info: 3016-01 - TSH fatigue Performed By: #### L 506.1000, L500.2500, L501.9520, L100.0100 #### [facility] [address] [place], [address] Chloride [Moles/Vol] 110 mmol/L High 98-107 [facility] Comment on above: Order Comment: Order Date: 07/06/24 Order Info: 666-11 - BMP Order Info: 3016-01 - TSH fatigue Performed By: #### L 506.1000, L500.2500, L501.9520, L100.0100 #### [facility] [address] [place], [address] CO2 [Moles/Vol] 23.0 mmol/L Normal 21.0-32.0 [facility] Comment on above: Order Comment: Order Date: 07/06/24 Order Info: 666-11 - BMP Order Info: 3016-01 - TSH fatigue Performed By: #### L 506.1000, L500.2500, L501.9520, L100.0100 #### [facility] [address] [place], [address] Creatinine [Mass/Vol] 0.78 mg/dL Normal 0.55-1.[address] [facility] Comment on above: Order Comment: Order Date: 07/06/24 Order Info: 666-11 - BMP Order Info: 3016-01 - TSH fatigue Result Comment: The validity of the calculated GFR GFRAA in patients over 70 years has not been determined. Clinical correlation is essential. Performed By: #### L 506.1000, L500.2500, L501.9520, L100.0100 #### [facility] [address] [place], [address] EST GFR - AA 90 mL/min Normal >60 [facility] Comment on above: Order Comment: Order Date: 07/06/24 Order Info: 666-11 - BMP Order Info: 3016-01 - TSH fatigue Result Comment: Afri can Iraqi GFR Calc Performed By: #### L 506.1000, L500.2500, L501.9520, L100.0100 #### [facility] [address] [place], [address] GAP 7 Normal 5-15 [facility] Comment on above: Order Comment: Order Date: 07/06/24 Order Info: 666-11 - BMP Order Info: 3016-01 - TSH fatigue Performed By: #### L 506.1000, L500.2500, L501.9520, L100.0100 #### [facility] [address] [place], [address] GFR/1.73 sq M.predicted among non-blacks MDRD (S/P/Bld) [Vol rate/Area] 75 mL/min/{1.73_m2} Normal >60 [facility] Comment on above: Order Comment: Order Date: 07/06/24 Order Info: 666-11 - BMP Order Info: 3016-01 - TSH fatigue Result Comment: Non- GFR Calc Performed By: #### L 506.1000, L500.2500, L501.9520, L100.0100 #### [facility] [address] [place], [address] Glucose [Mass/Vol] 93 mg/dL Normal 74-106 [facility] Comment on above: Order Comment: Order Date: 07/06/24 Order Info: 06 - BMP Order Info: 3 - TSH fatigue Performed By: #### L 506.1000, L500.2500, L501.9520, L100.0100 #### [facility] [address] [place], [address] Potassium [Moles/Vol] 4.3 mmol/L Normal 3.5-5.[address] [facility] Comment on above: Order Comment: Order Date: 07/06/24 Order Info: 06 - BMP Order Info: 3016-01 - TSH fatigue Performed By: #### L 506.1000, L500.2500, L501.9520, L100.0100 #### [facility] [address] [place], [address] Sodium [Moles/Vol] 140 mmol/L Normal 136-145 [facility] Comment on above: Order Comment: Order Date: 07/06/24 Order Info: 06 - BMP Order Info: 3016-01 - TSH fatigue Performed By: #### L 506.1000, L500.2500, L501.9520, L100.0100 #### [facility] [address] [place], [address] Urea nitrogen [Mass/Vol] 17 mg/dL Normal 7-18 [facility] Comment on above: Order Comment: Order Date: 07/06/24 Order Info: 06 - BMP Order Info: 3016-01 - TSH fatigue Performed By: #### L 506.1000, L500.2500, L501.9520, L100.0100 #### [facility] [address] [place], [address] CBC W/Diff, Automatedon 08-3 0-4 Absolute Lymph 1.63 X10 3/uL Normal 0.83-4.51 [facility] Comment on above: Order Comment: Order Date: 07/06/24 Order Info: 0184-1 - CBCD Performed By: #### L 506.1000, L500.2500, L501.9520, L100.0100 #### [facility] [address] [place], [address] Absolute Neut 2.2 X10 3/uL Normal 2.0-7.7 [facility] Comment on above: Order Comment: Order Date: 07/06/24 Order Info: 018- - CBCD Performed By: #### L 506.1000, L500.2500, L501.9520, L100.0100 #### [facility] [address] [place], [address] Basophils/100 WBC (Bld) 1.1 % High 0-1 [facility] Comment on above: Order Comment: Order Date: 07/06/24 Order Info: 018- - CBCD Performed By: #### L 506.1000, L500.2500, L501.9520, L100.0100 #### [facility] [address] [place], [address] Eosinophils/100 WBC (Bld) 4.0 % Normal 0-5 [facility] Comment on above: Order Comment: Order Date: 07/06/24 Order Info: 0184- - CBCD Performed By: #### L 506.1000, L500.2500, L501.9520, L100.0100 #### [facility] [address] [place], [address] Erythrocyte distribution width (RBC) [Ratio] 14.5 % Normal 11.6-14.6 [facility] Comment on above: Order Comment: Order Date: 07/06/24 Order Info: 018- - CBCD Performed By: #### L 506.1000, L500.2500, L501.9520, L100.0100 #### [facility] [address] [place], [address] Hematocrit (Bld) [Volume fraction] 36.8 % Low 37-47 [facility] Comment on above: Order Comment: Order Date: 07/06/24 Order Info: 0184-1 - CBCD Performed By: #### L 506.1000, L500.2500, L501.9520, L100.0100 #### [facility] [address] [place], [address] Hemoglobin (Bld) [Mass/Vol] 12.0 g/dL Normal 12.0-15.0 [facility] Comment on above: Order Comment: Order Date: 07/06/24 Order Info: 0184-1 - CBCD Performed By: #### L 506.1000, L500.2500, L501.9520, L100.0100 #### [facility] [address] [place], [address] IG% 0.200 Normal 0.0-0.9 [facility] Comment on above: Order Comment: Order Date: 07/06/24 Order Info: 0184-1 - CBCD Result Comment: IG% - Immature Granulocytes (promyelocytes, myelocytes and metamyelocytes) > 1% indicates that a LEFT SHIFT is Present. Performed By: #### L 506.1000, L500.2500, L501.9520, L100.0100 #### [facility] [address] [place], [address] Lymphocytes/100 WBC (Bld) 36.4 % Normal 19-41 [facility] Comment on above: Order Comment: Order Date: 07/06/24 Order Info: 0184-1 - CBCD Performed By: #### L 506.1000, L500.2500, L501.9520, L100.0100 #### [facility] [address] [place], [address] MCH (RBC) [Entitic mass] 28.8 pg Normal 27.0-32.0 [facility] Comment on above: Order Comment: Order Date: 07/06/24 Order Info: 0184-1 - CBCD Performed By: #### L 506.1000, L500.2500, L501.9520, L100.0100 #### [facility] [address] [place], [address] MCHC (RBC) [Mass/Vol] 32.6 g/dL Normal 32-[address] [facility] Comment on above: Order Comment: Order Date: 07/06/24 Order Info: 0184-1 - CBCD Performed By: #### L 506.1000, L500.2500, L501.9520, L100.0100 #### [facility] [address] [place], [address] MCV (RBC) [Entitic vol] 88.5 fL Normal 81-99 [facility] Comment on above: Order Comment: Order Date: 07/06/24 Order Info: 0184-1 - CBCD Performed By: #### L 506.1000, L500.2500, L501.9520, L100.0100 #### [facility] [address] [place], [address] Monocytes/100 WBC (Bld) 10.0 % Normal 0-10 [facility] Comment on above: Order Comment: Order Date: 07/06/24 Order Info: 0184-1 - CBCD Performed By: #### L 506.1000, L500.2500, L501.9520, L100.0100 #### [facility] [address] [place], [address] Neutrophils/100 WBC (Bld) 48.3 % Normal 47-70 [facility] Comment on above: Order Comment: Order Date: 07/06/24 Order Info: 0184-1 - CBCD Performed By: #### L 506.1000, L500.2500, L501.9520, L100.0100 #### [facility] [address] [place], [address] Nucleated RBC (Bld) [#/Vol] 0 10*3/uL Normal 0-5 [facility] Comment on above: Order Comment: Order Date: 07/06/24 Order Info: 0184-1 - CBCD Performed By: #### L 506.1000, L500.2500, L501.9520, L100.0100 #### [facility] [address] [place], [address] Platelet mean volume (Bld) [Entitic vol] 11.1 fL Normal 6.2-12.0 [facility] Comment on above: Order Comment: Order Date: 07/06/24 Order Info: 0184-1 - CBCD Performed By: #### L 506.1000, L500.2500, L501.9520, L100.0100 #### [facility] [address] [place], [address] Platelets (Bld) [#/Vol] 185 10*3/uL Normal 150-450 [facility] Comment on above: Order Comment: Order Date: 07/06/24 Order Info: 0184-1 - CBCD Performed By: #### L 506.1000, L500.2500, L501.9520, L100.0100 #### [facility] [address] [place], [address] RBC (Bld) [#/Vol] 4.16 10*6/uL Low 4.2-5.4 [facility] Comment on above: Order Comment: Order Date: 07/06/24 Order Info: 0184-1 - CBCD Performed By: #### L 506.1000, L500.2500, L501.9520, L100.0100 #### [facility] [address] [place], [address] RDW SD 46.7 fl High 35.1-43.9 [facility] Comment on above: Order Comment: Order Date: 07/06/24 Order Info: 0184-1 - CBCD Performed By: #### L 506.1000, L500.2500, L501.9520, L100.0100 #### [facility] [address] [place], [address] WBC (Bld) [#/Vol] 4.5 10*3/uL Normal 4.4-11.0 [facility] Comment on above: Order Comment: Order Date: 07/06/24 Order Info: 0184-1 - CBCD Performed By: #### L 506.1000, L500.2500, L501.9520, L100.0100 #### [facility] [address] [place], [address] Thyroid Stim Hormone (TSH)on 07-06-2024 TSH 2.590 uIU/mL Normal 0.358-3.740 [facility] Comment on above: Order Comment: Order Date: 07/06/24 Order Info: 0667-1 - BMP Order Info: 3016-3 - TSH fatigue Performed By: #### L 506.1000, L500.2500, L501.9520, L100.0100 #### [facility] [address] [place], [place], [address] Vitamin D,25 Hydroxyon 07-06 Vitamin D 25-OH 30.9 ng/mL Normal [facility] Comment on above: Order Comment: Order Date: 07/06/24 Order Info: 01448-6 - VITD25 Result Comment: Cindi min D 25(OH) Status Range Deficiency <20 ng/mL (50nmol/L) Insufficiency 20 - 30 ng/mL (50 - 75 nmol/L) Sufficiency 30 - 100 ng/mL (75 - 250 nmol/L) Toxicity >100 ng/mL (>250 nmol/L) Performed By: #### L 506.1000, L500.2500, L501.9520, L100.0100 #### [facility] [address] [place], [address] Absolute lymphocyte countOrd ered By: Nima Harper on 12-31-2023 Lymphocytes Auto (Unsp spec) [#/Vol] 1.76 10*3/uL 0.83-4.51 [facility] Automated lymphocyte count a s percentage of total leukocytesOrdered By: Nima Harper on 12-31-2023 Lymphocytes/100 WBC Auto (Unsp spec) 31.0 % 19-41 [facility] Basophil percentageOrdered B y: Nima Harper on 12-31-2023 Basophils/100 WBC (Bld) 0.9 % 0-1 [facility] Chloride [Moles/Vol] 109 mmol/L 98-107 [facility] Eosinophils/100 WBC (Bld) 5.1 % 0-5 [facility] Glucose [Mass/Vol] 102 mg/dL 74-106 [facility] Comment on above: Fasting Glucose resu lt from 100 to 125 mg/dL suggests IMPAIRED HOMEOSTASIS per A.D.A. criteria. Hemoglobin (Bld) [Mass/Vol] 10.6 g/dL 12.0-15.0 [facility] Monocytes/100 WBC (Bld) 9.2 % 0-10 [facility] Neutrophils (Bld) [#/Vol] 3.0 10*3/uL 2.0-7.7 [facility] Neutrophils/100 WBC (Bld) 53.3 % 47-70 [facility] Potassium [Moles/Vol] 4.3 mmol/L 3.5-5.[address] [facility] Sodium [Moles/Vol] 139 mmol/L 136-145 [facility] WBC (Bld) [#/Vol] 5.7 10*3/uL 4.4-11.0 [facility] Determination of erythrocyte mean corpuscular volume (MCV)Ordered By: Nima Harper on 12-31-2023 MCV (RBC) [Entitic vol] 89.0 fL 81-99 [facility] Erythrocyte distribution wid th ratioOrdered By: Nima Harper on 12-31-2023 Erythrocyte distribution width (RBC) [Ratio] 14.1 % 11.6-14.6 [facility] Erythrocyte distribution wid th standard deviationOrdered By: Nima Harper on 12-31-2023 Erythrocyte distribution width (RBC) [Entitic vol] 45.7 fL 35.1-43.9 [facility] Hematocrit Auto (Bld) [Volum e fraction]Ordered By: Nima Harper on 12-31-2023 Hematocrit (Bld) [Volume fraction] 33.2 % 37-47 [facility] Immature granulocytes/100 WB C Auto (Bld)Ordered By: Nima Harper on 12-31-2023 Immature granulocytes/100 WBC (Bld) 0.500 % 0.0-0.9 [facility] Comment on above: IG% - Immature Granu locytes (promyelocytes, myelocytes and metamyelocytes) > 1% indicates that a LEFT SHIFT is Present. Laboratory - Chemistry and C hemistry - challengeOrdered By: Nima Harper on 12-31-2023 CO2 [Moles/Vol] 25.0 mmol/L 21.0-32.0 [facility] Urea nitrogen/Creatinine [Mass ratio] 30.0 mg/mg 10-20 [facility] - Hematology and Cell countsOrdered By: Nima Harper on 12-31-2023 MCH (RBC) [Entitic mass] 28.4 pg 27.0-32.0 [facility] MCHC (RBC) [Mass/Vol] 31.9 g/dL 32-[address] [facility] Nucleated RBC/100 WBC (Bld) [Ratio] 0 % 0-5 [facility] Platelet mean volume (Bld) [Entitic vol] 10.2 fL 6.2-12.0 [facility] Platelets (Bld) [#/Vol] 216 10*3/uL 150-450 [facility] No Panel InformationOrdered By: Nima Harper on 12-31-2023 Estimated Creatinine Clearance Calc 57.44 ml/min [facility] Estimated GFR (MDRD) Amer 88 mL/min >60 [facility] Comment on above: GFR Calc Estimated GFR (MDRD) Non-Af Amer 73 mL/min >60 [facility] Comment on above: Non- GFR Calc RBC Auto (Bld) [#/Vol]Ordere d By: Nima Harper on 12-31-2023 RBC (Bld) [#/Vol] 3.73 10*6/uL 4.2-5.4 [facility] Serum or plasma calcium josie urement (mass/volume)Ordered By: Nima Harper on 12-31-2023 Calcium [Mass/Vol] 9.4 mg/dL 8.5-10.1 [facility] Serum or plasma creatinine m easurement (mass/volume)Ordered By: Nima Leroy on 12-31-2023 Creatinine [Mass/Vol] 0.80 mg/dL 0.55-1.[address] [facility] Comment on above: The validity of the calculated GFR & GFRAA in patients over 70 years has not been determined. Clinical correlation is essential. Serum or plasma urea nitroge n measurement (mass/volume)Ordered By: Nima Harper on 12-31-2023 Urea nitrogen [Mass/Vol] 24 mg/dL 7-18 [facility] Thin prep Papanicolaou smear with manual screeningOrdered By: [facility] Leroy on 12-31-2023 Thin prep Papanicolaou smear with manual screening 5 5-15 [facility] Absolute lymphocyte countOrd ered By: Nima Leroy on 12-24-2023 Lymphocytes Auto (Unsp spec) [#/Vol] 1.46 10*3/uL 0.83-4.51 [facility] Automated lymphocyte count a s percentage of total leukocytesOrdered By: Nima Harper on 12-24-2023 Lymphocytes/100 WBC Auto (Unsp spec) 20.2 % 19-41 [facility] Basophil percentageOrdered B y: Nima Harper on 12-24-2023 Basophil percentage 0-5 SEEN /hpf 0-5 [facility] Basophils/100 WBC (Bld) 0.7 % 0-1 [facility] Chloride [Moles/Vol] 107 mmol/L 98-107 [facility] Eosinophils/100 WBC (Bld) 0.4 % 0-5 [facility] Glucose [Mass/Vol] 123 mg/dL 74-106 [facility] Comment on above: Fasting Glucose resu lt from 100 to 125 mg/dL suggests IMPAIRED HOMEOSTASIS per A.D.A. criteria. Hemoglobin (Bld) [Mass/Vol] 10.5 g/dL 12.0-15.0 [facility] Monocytes/100 WBC (Bld) 10.0 % 0-10 [facility] Neutrophils (Bld) [#/Vol] 4.9 10*3/uL 2.0-7.7 [facility] Neutrophils/100 WBC (Bld) 68.0 % 47-70 [facility] Potassium [Moles/Vol] 3.7 mmol/L 3.5-5.[address] [facility] Sodium [Moles/Vol] 138 mmol/L 136-145 [facility] WBC (Bld) [#/Vol] 7.2 10*3/uL 4.4-11.0 [facility] Bilirubin Test strip Ql (U)O rdered By: Nima Harper on 12-24-2023 Bilirubin Ql (U) Negative Negative [facility] Culture, urineOrdered By: Nathan Harper on 12-24-2023 Bacteria identified Cx Nom (U) Culture exhibits no growth. [facility] Determination of erythrocyte mean corpuscular volume (MCV)Ordered By: Nima Harper on 12-24-2023 MCV (RBC) [Entitic vol] 88.3 fL 81-99 [facility] Erythrocyte distribution wid th ratioOrdered By: Nima Harper on 12-24-2023 Erythrocyte distribution width (RBC) [Ratio] 14.6 % 11.6-14.6 [facility] Erythrocyte distribution wid th standard deviationOrdered By: Nima Harper on 12-24-2023 Erythrocyte distribution width (RBC) [Entitic vol] 46.9 fL 35.1-43.9 [facility] Hematocrit Auto (Bld) [Volum e fraction]Ordered By: Nima Harper on 12-24-2023 Hematocrit (Bld) [Volume fraction] 32.3 % 37-47 [facility] Immature granulocytes/100 WB C Auto (Bld)Ordered By: Nima Harper on 12-24-2023 Immature granulocytes/100 WBC (Bld) 0.700 % 0.0-0.9 [facility] Comment on above: IG% - Immature Granu locytes (promyelocytes, myelocytes and metamyelocytes) > 1% indicates that a LEFT SHIFT is Present. Ketones Test strip Ql (U)Ord ered By: Nima Harper on 12-24-2023 Ketones Ql (U) Negative Negative [facility] - Chemistry and C hemistry - challengeOrdered By: Nima Harper on 12-24-2023 CO2 [Moles/Vol] 26.0 mmol/L 21.0-32.0 [facility] Urea nitrogen/Creatinine [Mass ratio] 20.8 mg/mg 10-20 [facility] - Hematology and Cell countsOrdered By: Nima Harper on 12-24-2023 MCH (RBC) [Entitic mass] 28.7 pg 27.0-32.0 [facility] MCHC (RBC) [Mass/Vol] 32.5 g/dL 32-[address] [facility] Nucleated RBC/100 WBC (Bld) [Ratio] 0 % 0-5 [facility] Platelet mean volume (Bld) [Entitic vol] 10.9 fL 6.2-12.0 [facility] Platelets (Bld) [#/Vol] 161 10*3/uL 150-450 [facility] Mucus LM Ql (Urine sed)Order ed By: Nima Harper on 12-24-2023 Mucus Ql (Urine sed) 0 SEEN /hpf [facility] Nitrite Test strip Ql (U)Ord ered By: Nima Harper on 12-24-2023 Nitrite Ql (U) Negative Negative [facility] No Panel InformationOrdered By: Nima Harper on 12-24-2023 Urine RBC 5-10 SEEN /hpf 0-5 [facility] Estimated Creatinine Clearance Calc 57.86 ml/min [facility] Estimated GFR (MDRD) Amer 117 mL/min >60 [facility] Comment on above: GFR Calc Estimated GFR (MDRD) Non-Af Amer 97 mL/min >60 [facility] Comment on above: Non- GFR Calc Protein Test strip Ql (U)Ord ered By: Nima Harper on 12-24-2023 Protein Ql (U) 15 mg/dl Negative [facility] RBC Auto (Bld) [#/Vol]Ordere d By: Nima Harper on 12-24-2023 RBC (Bld) [#/Vol] 3.66 10*6/uL 4.2-5.4 [facility] Respiratory pathogens detect ion panel by molecular detection methodOrdered By: Nima Harper on 12-24-2023 Respiratory pathogens DNA and RNA panel DEDIRCK+probe (Resp) [facility] Serum or plasma calcium josie urement (mass/volume)Ordered By: Nima Harper on 12-24-2023 Calcium [Mass/Vol] 9.3 mg/dL 8.5-10.1 [facility] Serum or plasma creatinine m easurement (mass/volume)Ordered By: Nima Harper on 12-24-2023 Creatinine [Mass/Vol] 0.62 mg/dL 0.55-1.[address] [facility] Comment on above: The validity of the calculated GFR & GFRAA in patients over 70 years has not been determined. Clinical correlation is essential. Serum or plasma urea nitroge n measurement (mass/volume)Ordered By: Nima Harper on 12-24-2023 Urea nitrogen [Mass/Vol] 13 mg/dL 7-18 [facility] Squamous epithelial cells de tection in urine sediment by light microscopyOrdered By: Nima Harper 12-24-2023 Epithelial cells.squamous LM Ql (Urine sed) 0-5 SEEN /hpf 5-10 [facility] Thin prep Papanicolaou smear with manual screeningOrdered By: Nima Harper 12-24-2023 Thin prep Papanicolaou smear with manual screening 5 5-15 [facility] Urine blood detectionOrdered By: Nima Harper 12-24-2023 RBC Ql (U) 50 /ul Negative [facility] Urine clarityOrdered By: Nima Harper 12-24-2023 Clarity (U) Clear Clear [facility] Urine color determinationOrd ered By: Nima Harper 12-24-2023 Color (U) Yellow Yellow [facility] Urine glucose detectionOrder ed By: Nima Harper 12-24-2023 Glucose Ql (U) Normal mg/dl Normal [facility] Urine leukocyte esterase det ection by dipstickOrdered By: Nima Harper 12-24-2023 Leukocyte esterase Test strip Ql (U) 25 /ul Negative [facility] Urine pHOrdered By: Nima Harper 12-24-2023 pH (U) 6.5 [pH] 5.0 - 8.0 [facility] Urine sediment bacteria coun t by microscopy (number/high power field)Ordered By: Nima Harper 12-24-2023 Bacteria LM.HPF (Urine sed) [#/Area] RARE /hpf None Seen [facility] Urine specific gravity measu rementOrdered By: Nima Harper 12-24-2023 Specific gravity (U) [Rel density] 1.015 1.002-1.030 [facility] Urine urobilinogen measureme ntOrdered By: Nima aHrper on 12-24-2023 Urobilinogen Ql (U) Normal mg/dl Normal [facility] Basophil percentageOrdered B y: Jose Ramon Zuluaga on 12-23-2023 Hemoglobin (Bld) [Mass/Vol] 10.2 g/dL 12.0-15.0 [facility] WBC (Bld) [#/Vol] 8.5 10*3/uL 4.4-11.0 [facility] Determination of erythrocyte mean corpuscular volume (MCV)Ordered By: Jose Ramon Zuluaga on 12-23-2023 MCV (RBC) [Entitic vol] 89.0 fL 81-99 [facility] Erythrocyte distribution wid th ratioOrdered By: Jose Ramon Zuluaga on 12-23-2023 Erythrocyte distribution width (RBC) [Ratio] 14.5 % 11.6-14.6 [facility] Erythrocyte distribution wid th standard deviationOrdered By: Jose Ramon Zuluaga on 12-23-2023 Erythrocyte distribution width (RBC) [Entitic vol] 46.8 fL 35.1-43.9 [facility] Hematocrit Auto (Bld) [Volum e fraction]Ordered By: Jose Ramon Zuluaga on 12-23-2023 Hematocrit (Bld) [Volume fraction] 31.4 % 37-47 [facility] - Hematology and Cell countsOrdered By: Jose Ramon Zuluaga on 12-23-2023 MCH (RBC) [Entitic mass] 28.9 pg 27.0-32.0 [facility] MCHC (RBC) [Mass/Vol] 32.5 g/dL 32-[address] [facility] Platelet mean volume (Bld) [Entitic vol] 10.3 fL 6.2-12.0 [facility] Platelets (Bld) [#/Vol] 142 10*3/uL 150-450 [facility] RBC Auto (Bld) [#/Vol]Ordere d By: Jose Ramon Zuluaga on 12-23-2023 RBC (Bld) [#/Vol] 3.53 10*6/uL 4.2-5.4 [facility] Basophil percentageOrdered B y: Jose Ramon Zuluaga on 12-22-2023 Chloride [Moles/Vol] 110 mmol/L 98-107 [facility] Glucose [Mass/Vol] 118 mg/dL 74-106 [facility] Comment on above: Fasting Glucose resu lt from 100 to 125 mg/dL suggests IMPAIRED HOMEOSTASIS per A.D.A. criteria. Potassium [Moles/Vol] 4.3 mmol/L 3.5-5.[address] [facility] Sodium [Moles/Vol] 141 mmol/L 136-145 [facility] Laboratory - Chemistry and C hemistry - challengeOrdered By: Jose Ramon Zuluaga on 12-22-2023 CO2 [Moles/Vol] 23.0 mmol/L 21.0-32.0 [facility] Urea nitrogen/Creatinine [Mass ratio] 21.9 mg/mg 10-20 [facility] No Panel InformationOrdered By: Jose Ramon Zuluaga on 12-22-2023 Estimated Creatinine Clearance Calc 58.04 ml/min [facility] Estimated GFR (MDRD) Amer 98 mL/min >60 [facility] Comment on above: GFR Calc Estimated GFR (MDRD) Non-Af Amer 81 mL/min >60 [facility] Comment on above: Non- GFR Calc Serum or plasma calcium josie urement (mass/volume)Ordered By: Jose Ramon Zuluaga on 12-22-2023 Calcium [Mass/Vol] 9.6 mg/dL 8.5-10.1 [facility] Serum or plasma creatinine m easurement (mass/volume)Ordered By: Jose Ramon Zuluaga on 12-22-2023 Creatinine [Mass/Vol] 0.73 mg/dL 0.55-1.[address] [facility] Comment on above: The validity of the calculated GFR & GFRAA in patients over 70 years has not been determined. Clinical correlation is essential. Serum or plasma urea nitroge n measurement (mass/volume)Ordered By: Jose Ramon Zuluaga on 12-22-2023 Urea nitrogen [Mass/Vol] 16 mg/dL 7-18 [facility] Thin prep Papanicolaou smear with manual screeningOrdered By: Jose Ramon Zuluaga on 12-22-2023 Thin prep Papanicolaou smear with manual screening 8 5-15 [facility] Thin prep Papanicolaou smear with manual screeningOrdered By: Jose Ramon Zuluaga on 12-21-2023 Thin prep Papanicolaou smear with manual screening 106 mg/dL 74-106 [facility] Comment on above: MANAGEMENT OF PATIEN T CARE PER NURSING PROTOCOL Absolute lymphocyte countOrd ered By: Jose Ramon Zuluaga on 12-08-2023 Lymphocytes Auto (Unsp spec) [#/Vol] 1.63 10*3/uL 0.83-4.51 [facility] Automated lymphocyte count a s percentage of total leukocytesOrdered By: Jose Ramon Zuluaga on 12-08-2023 Lymphocytes/100 WBC Auto (Unsp spec) 40.0 % 19-41 [facility] Basophil percentageOrdered B y: Jose Ramon Zuluaga on 12-08-2023 Basophils/100 WBC (Bld) 1.2 % 0-1 [facility] Eosinophils/100 WBC (Bld) 2.2 % 0-5 [facility] Monocytes/100 WBC (Bld) 7.6 % 0-10 [facility] Neutrophils (Bld) [#/Vol] 2.0 10*3/uL 2.0-7.7 [facility] Neutrophils/100 WBC (Bld) 48.8 % 47-70 [facility] Immature granulocytes/100 WB C Auto (Bld)Ordered By: Jose Ramon Zuluaga on 12-08-2023 Immature granulocytes/100 WBC (Bld) 0.200 % 0.0-0.9 [facility] Comment on above: IG% - Immature Granu locytes (promyelocytes, myelocytes and metamyelocytes) > 1% indicates that a LEFT SHIFT is Present. Laboratory - Chemistry and C hemistry - challengeOrdered By: Brandon Rosado on 12-08-2023 Magnesium [Mass/Vol] 2.5 mg/dL 1.6-2.6 [facility] Laboratory - Hematology and Cell countsOrdered By: Jose Ramon Zuluaga on 12-08-2023 Nucleated RBC/100 WBC (Bld) [Ratio] 0 % 0-5 [facility] No Panel InformationOrdered By: Jose Ramon Zuluaga on 12-08-2023 Nasal Screen MRSA/MSSA [facility] Thin prep Papanicolaou smear with manual screeningOrdered By: Jose Ramon Zuluaga on 12-08-2023 Thin prep Papanicolaou smear with manual screening 3.6 g/dL 3.2-5.0 [facility] Absolute lymphocyte countOrd ered By: Alex Giang on 10-14-2023 Lymphocytes Auto (Unsp spec) [#/Vol] 1.99 10*3/uL 0.83-4.51 [facility] Basophil percentageOrdered B y: Alex Giang on 10-14-2023 Basophils/100 WBC (Bld) 0.7 % 0-1 [facility] Bilirubin [Mass/Vol] 0.60 mg/dL 0.20-1.00 [facility] Comment on above: For patients on eltr ombopag therapy, use of Dimension Mobile TBIL is not recommended. Chloride [Moles/Vol] 110 mmol/L 98-107 [facility] Cholesterol [Mass/Vol] 176 mg/dL <200 [facility] Comment on above: <200 mg/dL Desirable 200-240 mg/dL Borderline >240 mg/dL High Risk Eosinophils/100 WBC (Bld) 3.0 % 0-5 [facility] Glucose [Mass/Vol] 112 mg/dL 74-106 [facility] Comment on above: Fasting Glucose resu lt from 100 to 125 mg/dL suggests IMPAIRED HOMEOSTASIS per A.D.A. criteria. Neutrophils (Bld) [#/Vol] 3.3 10*3/uL 2.0-7.7 [facility] Neutrophils/100 WBC (Bld) 55.0 % 47-70 [facility] Potassium [Moles/Vol] 3.8 mmol/L 3.5-5.[address] [facility] Protein [Mass/Vol] 6.9 g/dL 6.4-8.2 [facility] Sodium [Moles/Vol] 140 mmol/L 136-145 [facility] Triglyceride [Mass/Vol] 218 mg/dL <199 [facility] Comment on above: The drugs N-Acetylcy steine and Metamizole may falsely depress this assay.Serum Triglycerides Reference Interval Normal <150 mg/dL Borderline high 150 - 199 mg/dL High 200 - 499 mg/dL Very High > or = 500 mg/dL WBC (Bld) [#/Vol] 6.0 10*3/uL 4.4-11.0 [facility] Bilirubin Test strip Ql (U)O rdered By: Alex Giang on 10-14-2023 Bilirubin Ql (U) 1 mg/dL Negative [facility] Comment on above: COLOR OF URINE MAY A FFECT DIPSTICK RESULTS. Blood erythrocytes count (nu mber/volume)Ordered By: Alex Giang on 10-14-2023 RBC (Bld) [#/Vol] 3.83 10*6/uL 4.2-5.4 [facility] Blood hemoglobin measurement (mass/volume)Ordered By: Alex Giang on 10-14-2023 Hemoglobin (Bld) [Mass/Vol] 11.3 g/dL 12.0-15.0 [facility] Blood lymphocytes/100 leukoc ytesOrdered By: Alex Giang on 10-14-2023 Lymphocytes/100 WBC (Bld) 33.4 % 19-41 [facility] Blood monocytes/100 leukocyt esOrdered By: Alex Giang on 10-14-2023 Monocytes/100 WBC (Bld) 7.6 % 0-10 [facility] Blood platelet mean volumeOr dered By: Alex Giang on 10-14-2023 Platelet mean volume (Bld) [Entitic vol] 10.1 fL 6.2-12.0 [facility] Determination of erythrocyte mean corpuscular volume (MCV)Ordered By: Alex Giang on 10-14-2023 MCV (RBC) [Entitic vol] 90.1 fL 81-99 [facility] Hematocrit Auto (Bld) [Volum e fraction]Ordered By: Alex Giang on 10-14-2023 Hematocrit (Bld) [Volume fraction] 34.5 % 37-47 [facility] Ketones Test strip Ql (U)Ord ered By: Alex Giang on 10-14-2023 Ketones Ql (U) 5 mg/dl Negative [facility] Laboratory - Chemistry and C hemistry - challengeOrdered By: Alex Giang on 10-14-2023 ALP [Catalytic activity/Vol] 119 U/L 45-117 [facility] ALT [Catalytic activity/Vol] 19 U/L 13-56 [facility] CO2 [Moles/Vol] 24.0 mmol/L 21.0-32.0 [facility] Globulin (S) [Mass/Vol] 3.2 g/dL 2.2-4.2 [facility] Urea nitrogen/Creatinine [Mass ratio] 22.6 mg/mg 10-20 [facility] Laboratory - Hematology and Cell countsOrdered By: Alex Giang on 10-14-2023 Erythrocyte distribution width (RBC) [Entitic vol] 44.9 fL 35.1-43.9 [facility] Erythrocyte distribution width (RBC) [Ratio] 13.8 % 11.6-14.6 [facility] Immature granulocytes/100 WBC (Bld) 0.300 % 0.0-0.9 [facility] Comment on above: IG% - Immature Granu locytes (promyelocytes, myelocytes and metamyelocytes) > 1% indicates that a LEFT SHIFT is Present. MCH (RBC) [Entitic mass] 29.5 pg 27.0-32.0 [facility] Nucleated RBC/100 WBC (Bld) [Ratio] 0 % 0-5 [facility] MCHC Auto (RBC) [Mass/Vol]Or dered By: Alex Giang on 10-14-2023 MCHC (RBC) [Mass/Vol] 32.8 g/dL 32-[address] [facility] Nitrite Test strip Ql (U)Ord ered By: Alex Giang on 10-14-2023 Nitrite Ql (U) Negative Negative [facility] No Panel InformationOrdered By: Alex Giang on 10-14-2023 Estimated GFR (MDRD) Amer 64 mL/min >60 [facility] Comment on above: GFR Calc Estimated GFR (MDRD) Non-Af Amer 53 mL/min >60 [facility] Comment on above: Non- GFR Calc Thyroid Stimulating Hormone (TSH) 2.01 uIU/mL 0.358-3.74 [facility] Vitamin D 25-Hydroxy 33.2 ng/mL [facility] Comment on above: Vitamin D 25(OH) Sta tus Range Deficiency <20 ng/mL (50nmol/L) Insufficiency 20 - 30 ng/mL (50 - 75 nmol/L) Sufficiency 30 - 100 ng/mL (75 - 250 nmol/L) Toxicity >100 ng/mL (>250 nmol/L) Platelets bldOrdered By: Andre Giang on 10-14-2023 Platelets (Bld) [#/Vol] 231 10*3/uL 150-450 [facility] Protein Test strip Ql (U)Ord ered By: Alex Giang on 10-14-2023 Protein Ql (U) 15 mg/dl Negative [facility] Serum or plasma albumin josie urement (mass/volume)Ordered By: Alex Giang on 10-14-2023 Albumin [Mass/Vol] 3.7 g/dL 3.2-5.0 [facility] Serum or plasma albumin/glob ulin mass ratioOrdered By: Alex Giang on 10-14-2023 Albumin/Globulin [Mass ratio] 1.2 {ratio} 0.9-2.4 [facility] Serum or plasma calcium josie urement (mass/volume)Ordered By: Alex Giang on 10-14-2023 Calcium [Mass/Vol] 9.0 mg/dL 8.5-10.1 [facility] Serum or plasma cholesterol in HDL measurement (mass/volume)Ordered By: Alex Giang on 10-14-2023 Cholesterol in HDL [Mass/Vol] 69 mg/dL >40 [facility] Comment on above: The drugs N-Acetylcy steine and Metamizole may falsely depress this assay. Reference Range HDL <40 mg/dL Low HDL Cholesterol HDL >or= 60 mg/dL High HDL Cholesterol Serum or plasma cholesterol in VLDL measurement (mass/volume)Ordered By: Alex Giang on 10-14-2023 Cholesterol in VLDL [Mass/Vol] 44 mg/dL 5-40 [facility] Serum or plasma creatinine m easurement (mass/volume)Ordered By: Alex Giang on 10-14-2023 Creatinine [Mass/Vol] 1.06 mg/dL 0.55-1.[address] [facility] Comment on above: The validity of the calculated GFR & GFRAA in patients over 70 years has not been determined. Clinical correlation is essential. Serum or plasma low density lipoprotein (LDL) cholesterol measurement (mass/volume)Ordered By: Alex Giang on 10-14-2023 Cholesterol in LDL [Mass/Vol] 63 mg/dL 0-130 [facility] Serum or plasma urea nitroge n measurement (mass/volume)Ordered By: Alex Giang on 10-14-2023 Urea nitrogen [Mass/Vol] 24 mg/dL 7-18 [facility] Thin prep Papanicolaou smear with manual screeningOrdered By: Alex Giang on 10-14-2023 Thin prep Papanicolaou smear with manual screening 13 U/L 15-37 [facility] Thin prep Papanicolaou smear with manual screening 6 5-15 [facility] Urine blood detectionOrdered By: Alex Giang on 10-14-2023 RBC Ql (U) 150 /ul Negative [facility] Urine clarityOrdered By: Andre Giang on 10-14-2023 Clarity (U) Clear Clear [facility] Urine color determinationOrd ered By: Alex Giang on 10-14-2023 Color (U) Yellow Yellow [facility] Urine glucose detectionOrder ed By: Alex Giang on 10-14-2023 Glucose Ql (U) Normal mg/dl Normal [facility] Urine leukocyte esterase det ection by dipstickOrdered By: Alex Giang on 10-14-2023 Leukocyte esterase Test strip Ql (U) 25 /ul Negative [facility] Urine pHOrdered By: Alex ferrari on 10-14-2023 pH (U) 5.0 [pH] 5.0 - 8.0 [facility] Urine specific gravity measu rementOrdered By: Alex Giang on 10-14-2023 Specific gravity (U) [Rel density] 1.025 1.002-1.030 [facility] Urobilinogen Auto test strip Ql (U)Ordered By: Alex Giang on 10-14-2023 Urobilinogen Ql (U) 1 mg/dl Normal [facility] .Auto Diffon 09-21-2023 Basophil, Absolute 0.0 10 3/mcL Normal 0.0-0.2 [facility] ([place]) Comment on above: Performed By: #### A JOSE LUIS, CBC, GFR, ADIFF, BMP #### [place] [address] [address] Basophils/100 WBC (Bld) 0.1 % Normal 0.0-2.5 A [facility] ([place]) Comment on above: Performed By: #### A JOSE LUIS, CBC, GFR, ADIFF, BMP #### [address] [address] Eosinophil, Absolute 0.0 10 3/mcL Normal 0.0-0.4 [facility] ([place]) Comment on above: Performed By: #### A JOSE LUIS, CBC, GFR, ADIFF, BMP #### [address] [address] Eosinophils/100 WBC (Bld) 0.0 % Normal 0.0-7.0 [facility] ([place]) Comment on above: Performed By: #### A JOSE LUIS, CBC, GFR, ADIFF, BMP #### [address] [address] Lymphocyte, Absolute 1.3 10 3/mcL Normal 0.8-3.9 [facility] ([place]) Comment on above: Performed By: #### A JOSE LUIS, CBC, GFR, ADIFF, BMP #### [address] [address] Lymphocytes/100 WBC (Bld) 10.0 % Normal 10.0-50.0 [facility] ([place]) Comment on above: Performed By: #### A JOSE LUIS, CBC, GFR, ADIFF, BMP #### [address] [address] Monocyte, Absolute 0.3 10 3/mcL Normal 0.2-1.0 [facility] ([place]) Comment on above: Performed By: #### A JOSE LUIS, CBC, GFR, ADIFF, BMP #### [address] [address] Monocytes/100 WBC (Bld) 2.1 % Normal 1.7-13.0 [facility] ([place]) Comment on above: Performed By: #### A JOSE LUIS, CBC, GFR, ADIFF, BMP #### [address] [address] Neutrophils/100 WBC (Bld) 87.8 % High 37.0-80.0 [facility] ([place]) Comment on above: Performed By: #### A JOSE LUIS, CBC, GFR, ADIFF, BMP #### [address] [address] .GFRon 09-21-2023 GFR Non- 53 ml/min/1.73sqm Normal [facility] ([place]) Comment on above: Result Comment: GFR Population mean for , Non- Americans Ages 20-29 = 116 mL/min/1.73 sq.m. Ages 30-39 = 107 mL/min/1.73 sq.m. Ages 40-49 = 99 mL/min/1.73 sq.m. Ages 50-59 = 93 mL/min/1.73 sq.m. Ages 60-69 = 85 mL/min/1.73 sq.m. Ages 70+ = 75 mL/min/1.73 sq.m. Chronic Kidney Disease: Less than 60 mL/min/1.73 square meters End Stage Renal Disease: Less than 15 mL/min/1.73 square meters Performed By: #### A JOSE LUIS, CBC, GFR, ADIFF, BMP #### [address] [address] GFR 64 ml/min/1.73sqm Normal [facility] ([place]) Comment on above: Result Comment: GFR Population mean for , Non- Americans Ages 20-29 = 116 mL/min/1.73 sq.m. Ages 30-39 = 107 mL/min/1.73 sq.m. Ages 40-49 = 99 mL/min/1.73 sq.m. Ages 50-59 = 93 mL/min/1.73 sq.m. Ages 60-69 = 85 mL/min/1.73 sq.m. Ages 70+ = 75 mL/min/1.73 sq.m. Chronic Kidney Disease: Less than 60 mL/min/1.73 square meters End Stage Renal Disease: Less than 15 mL/min/1.73 square meters Performed By: #### A JOSE LUIS, CBC, GFR, ADIFF, BMP #### [address] [address] .NEUABSon 09-21-2023 Neutrophil, Absolute 11.2 10 3/mcL High 2.9-6.2 A [facility] ([place]) Comment on above: Performed By: #### A JOSE LUIS, CBC, GFR, ADIFF, BMP #### [address] [address] BMPon 09-21-2023 BUN/Creatinine Ratio 27 ratio Normal 7-27 [facility] ([place]) Comment on above: Performed By: #### A JOSE LUIS, CBC, GFR, ADIFF, BMP #### [address] [address] Calcium [Mass/Vol] 8.7 mg/dL Normal 8.4-10.2 [facility] ([place]) Comment on above: Performed By: #### A JOSE LUIS, CBC, GFR, ADIFF, BMP #### [address] [address] Chloride [Moles/Vol] 105 mmol/L Normal 98-107 [facility] ([place]) Comment on above: Performed By: #### A JOSE LUIS, CBC, GFR, ADIFF, BMP #### [address] [address] CO2 [Moles/Vol] 26 mmol/L Normal 23-31 [facility] ([place]) Comment on above: Performed By: #### A JOSE LUIS, CBC, GFR, ADIFF, BMP #### [address] [address] Creatinine [Mass/Vol] 1.00 mg/dL Normal 0.55-1.02 [facility] ([place]) Comment on above: Performed By: #### A JOSE LUIS, CBC, GFR, ADIFF, BMP #### [address] [address] Electrolyte Balance 8.0 mEq/L Normal 4.0-15.0 [facility] ([place]) Comment on above: Performed By: #### A JOSE LUIS, CBC, GFR, ADIFF, BMP #### [address] [address] Glucose [Mass/Vol] 151 mg/dL High 83-110 [facility] ([place]) Comment on above: Performed By: #### A JOSE LUIS, CBC, GFR, ADIFF, BMP #### [address] [address] Potassium [Moles/Vol] 4.5 mmol/L Normal 3.5-5.1 [facility] ([place]) Comment on above: Performed By: #### A JOSE LUIS, CBC, GFR, ADIFF, BMP #### [address] [address] Sodium [Moles/Vol] 139 mmol/L Normal 136-145 [facility] ([place]) Comment on above: Performed By: #### A JOSE LUIS, CBC, GFR, ADIFF, BMP #### [place] [id number] Urea nitrogen [Mass/Vol] 27 mg/dL High 7-18 [facility] ([place]) Comment on above: Performed By: #### A JOSE LUIS, CBC, GFR, ADIFF, BMP #### [address] [address] CBCon 09-21-2023 Erythrocyte distribution width (RBC) [Ratio] 13.9 % Normal 11.5-14.5 [facility] ([place]) Comment on above: Performed By: #### A JOSE LUIS, CBC, GFR, ADIFF, BMP #### [address] [address] Hematocrit (Bld) [Volume fraction] 33.2 % Low 37.0-47.0 [facility] ([place]) Comment on above: Performed By: #### A JOSE LUIS, CBC, GFR, ADIFF, BMP #### [address] [address] Hgb 11.3 G/dL Low 12.0-16.0 [facility] ([place]) Comment on above: Performed By: #### A JOSE LUIS, CBC, GFR, ADIFF, BMP #### [address] [address] MCH (RBC) [Entitic mass] 29.7 pg Normal 27.0-31.2 [facility] ([place]) Comment on above: Performed By: #### A JOSE LUIS, CBC, GFR, ADIFF, BMP #### [address] [address] MCHC 34.2 G/dL Normal 33.0-37.0 [facility] ([place]) Comment on above: Performed By: #### A JOSE LUIS, CBC, GFR, ADIFF, BMP #### [address] [address] MCV (RBC) [Entitic vol] 87.0 fL Normal 80.0-94.0 A [facility] ([place]) Comment on above: Performed By: #### A JOSE LUIS, CBC, GFR, ADIFF, BMP #### [address] [address] Platelet 176 10 3/mcL Normal 130-400 [facility] ([place]) Comment on above: Performed By: #### A JOSE LUIS, CBC, GFR, ADIFF, BMP #### [address] [address] Platelet mean volume (Bld) [Entitic vol] 8.9 fL Normal 7.4-10.4 [facility] ([place]) Comment on above: Performed By: #### A JOSE LUIS, CBC, GFR, ADIFF, BMP #### [address] [address] RBC 3.82 10 6/mcL Low 4.20-5.40 [facility] ([place]) Comment on above: Performed By: #### A JOSE LUIS, CBC, GFR, ADIFF, BMP #### [address] [address] WBC 12.7 10 3/mcL High 4.6-10.8 [facility] ([place]) Comment on above: Performed By: #### A JOSE LUIS, CBC, GFR, ADIFF, BMP #### [address] [address] LABORATORYOrdered By: SYSTEM SYSTEM on 09-21-2023 Basophil, Absolute 0.0 103/mcL Normal 0.0 - 0.2 10^3/mcL AO Workflow SS Basophils/100 WBC (Bld) 0.1 % Normal 0.0 - 2.5 % AO Workflow SS Calcium [Mass/Vol] 8.7 mg/dL Normal 8.4 - 10. 2 mg/dL AO ADM SS Chloride [Moles/Vol] 105 mmol/L Normal 98 - 10 7 mmol/L AO ADM SS CO2 [Moles/Vol] 26 mmol/L Normal 23 - 31 mmol/L AO ADM SS Creatinine [Mass/Vol] 1.00 mg/dL Normal 0.55 - 1.02 mg/dL AO ADM SS Electrolyte Balance 8.0 mEq/L Normal 4.0 - 15 .0 mEq/L AO ADM SS Eosinophil, Absolute 0.0 103/mcL Normal 0.0 - 0 .4 10^3/mcL AO Workflow SS Eosinophils/100 WBC (Bld) 0.0 % Normal 0.0 - 7.0 % AO Workflow SS Erythrocyte distribution width (RBC) [Ratio] 13.9 % Normal 11.5 - 14.5 % AO Workflow SS GFR/1.73 sq M.predicted among blacks MDRD (S/P/Bld) [Vol rate/Area] 64 ml/min/1.73sqm Invalid Interpretation Code AO Chemistry S Comment on above: Interpretive Data: GFR Population mean for , Non- Americans Ages 20-29 = 116 mL/min/1.73 sq.m. Ages 30-39 = 107 mL/min/1.73 sq.m. Ages 40-49 = 99 mL/min/1.73 sq.m. Ages 50-59 = 93 mL/min/1.73 sq.m. Ages 60-69 = 85 mL/min/1.73 sq.m. Ages 70+ = 75 mL/min/1.73 sq.m. Chronic Kidney Disease: Less than 60 mL/min/1.73 square meters End Stage Renal Disease: Less than 15 mL/min/1.73 square meters GFR/1.73 sq M.predicted among non-blacks MDRD (S/P/Bld) [Vol rate/Area] 53 ml/min/1.73sqm Invalid Interpretation Code AO Chemistry S Comment on above: Interpretive Data: GFR Population mean for , Non- Americans Ages 20-29 = 116 mL/min/1.73 sq.m. Ages 30-39 = 107 mL/min/1.73 sq.m. Ages 40-49 = 99 mL/min/1.73 sq.m. Ages 50-59 = 93 mL/min/1.73 sq.m. Ages 60-69 = 85 mL/min/1.73 sq.m. Ages 70+ = 75 mL/min/1.73 sq.m. Chronic Kidney Disease: Less than 60 mL/min/1.73 square meters End Stage Renal Disease: Less than 15 mL/min/1.73 square meters Glucose [Mass/Vol] 151 mg/dL High 83 - 110 mg/dL AO ADM SS Hematocrit (Bld) [Volume fraction] 33.2 % Low 37.0 - 47.0 % AO Workflow SS Hemoglobin (Bld) [Mass/Vol] 11.3 G/dL Low 12.0 - 16.0 G/dL AO Workflow SS Lymphocyte, Absolute 1.3 103/mcL Normal 0.8 - 3 .9 10^3/mcL AO Workflow SS Lymphocytes/100 WBC (Bld) 10.0 % Normal 10.0 - 50.0 % AO Workflow SS MCH (RBC) [Entitic mass] 29.7 pg Normal 27.0 - 31.2 pg AO Workflow SS MCHC 34.2 G/dL Normal 33.0 - 37.0 G/dL AO Workflow SS MCV (RBC) [Entitic vol] 87.0 fL Normal 80.0 - 94.0 fL AO Workflow SS Monocyte, Absolute 0.3 103/mcL Normal 0.2 - 1.0 10^3/mcL AO Workflow SS Monocytes/100 WBC (Bld) 2.1 % Normal 1.7 - 13.0 % AO Workflow SS Neutrophil, Absolute 11.2 103/mcL High 2.9 - 6 .2 10^3/mcL AO Workflow SS Neutrophils/100 WBC (Bld) 87.8 % High 37.0 - 80.0 % AO Workflow SS Platelet mean volume (Bld) [Entitic vol] 8.9 fL Normal 7.4 - 10.4 fL AO Workflow SS Platelets (Bld) [#/Vol] 176 103/mcL Normal 130 - 400 10^3/mcL AO Workflow SS Potassium [Moles/Vol] 4.5 mmol/L Normal 3.5 - 5.1 mmol/L AO ADM SS RBC (Bld) [#/Vol] 3.82 106/mcL Low 4.20 - 5.4 0 10^6/mcL AO Workflow SS Sodium [Moles/Vol] 139 mmol/L Normal 136 - 145 mmol/L AO ADM SS Urea nitrogen [Mass/Vol] 27 mg/dL High 7 - 18 mg/dL AO ADM SS Urea nitrogen/Creatinine [Mass ratio] 27 ratio Normal 7 - 27 ratio AO ADM SS WBC (Bld) [#/Vol] 12.7 103/mcL High 4.6 - 10.8 10^3/mcL AO Workflow SS Gel ABOon 09-20-2023 ABO/Rh Interp Positive Invalid Interpretation Code [facility] ([place]) Comment on above: Performed By: #### A JOSE LUIS, CBC, GFR, ADIFF, BMP #### [address] [address] Gel ABSon 09-20-2023 Antibody Screen Gel Negative Normal [facility] ([place]) Comment on above: Performed By: #### A JOSE LUIS, CBC, GFR, ADIFF, BMP #### [address] [address] LABORATORYOrdered By: Carol Perez on 09-20-2023 ABO/Rh Interp Positive Invalid Interpretation Code AO BB SS Antibody Screen Gel Negative [facility]SC (09/20/23 9:10 AM) Normal AO BB SS XR KNEE 1 OR 2 VIEWS RIGHTon 09-20-2023 XR KNEE 1 OR 2 VIEWS RIGHT ORIGINAL EXAMINATION: TWO XRAY VIEWS OF THE [...] Sign Date: 09/20/2023 1:06:13 PM Ordering Provider: JOSE RAMON Modi [facility] ([place]) .Auto Diffon 08-26-2023 Basophil, Absolute 0.1 10 3/mcL Normal 0.0-0.2 [facility] ([place]) Comment on above: Performed By: #### A DIFF, BMP, ANSG, CBC, GFR, ABOG, ANEU, ALB #### [address] [address] Basophils/100 WBC (Bld) 1.0 % Normal 0.0-2.5 A [facility] ([place]) Comment on above: Performed By: #### A DIFF, BMP, ANSG, CBC, GFR, ABOG, ANEU, ALB #### [address] [address] Eosinophil, Absolute 0.1 10 3/mcL Normal 0.0-0.4 [facility] ([place]) Comment on above: Performed By: #### A DIFF, BMP, ANSG, CBC, GFR, ABOG, ANEU, ALB #### [address] [address] Eosinophils/100 WBC (Bld) 2.6 % Normal 0.0-7.0 [facility] ([place]) Comment on above: Performed By: #### A DIFF, BMP, ANSG, CBC, GFR, ABOG, ANEU, ALB #### [address] [address] Lymphocyte, Absolute 1.8 10 3/mcL Normal 0.8-3.9 [facility] ([place]) Comment on above: Performed By: #### A DIFF, BMP, ANSG, CBC, GFR, ABOG, ANEU, ALB #### [address] [address] Lymphocytes/100 WBC (Bld) 35.5 % Normal 10.0-50.0 [facility] ([place]) Comment on above: Performed By: #### A DIFF, BMP, ANSG, CBC, GFR, ABOG, ANEU, ALB #### [address] [address] Monocyte, Absolute 0.4 10 3/mcL Normal 0.2-1.0 [facility] ([place]) Comment on above: Performed By: #### A DIFF, BMP, ANSG, CBC, GFR, ABOG, ANEU, ALB #### [address] [address] Monocytes/100 WBC (Bld) 7.9 % Normal 1.7-13.0 A [facility] ([place]) Comment on above: Performed By: #### A DIFF, BMP, ANSG, CBC, GFR, ABOG, ANEU, ALB #### [address] [address] Neutrophils/100 WBC (Bld) 53.0 % Normal 37.0-80.0 [facility] ([place]) Comment on above: Performed By: #### A DIFF, BMP, ANSG, CBC, GFR, ABOG, ANEU, ALB #### [address] [address] .GFRon 08-26-2023 GFR Non- 60 ml/min/1.73sqm Normal [facility] ([place]) Comment on above: Result Comment: GFR Population mean for , Non- Americans Ages 20-29 = 116 mL/min/1.73 sq.m. Ages 30-39 = 107 mL/min/1.73 sq.m. Ages 40-49 = 99 mL/min/1.73 sq.m. Ages 50-59 = 93 mL/min/1.73 sq.m. Ages 60-69 = 85 mL/min/1.73 sq.m. Ages 70+ = 75 mL/min/1.73 sq.m. Chronic Kidney Disease: Less than 60 mL/min/1.73 square meters End Stage Renal Disease: Less than 15 mL/min/1.73 square meters Performed By: #### A JOSE LUIS, CBC, GFR, ADIFF, BMP #### [address] [address] GFR 73 ml/min/1.73sqm Normal [facility] ([place]) Comment on above: Result Comment: GFR Population mean for , Non- Americans Ages 20-29 = 116 mL/min/1.73 sq.m. Ages 30-39 = 107 mL/min/1.73 sq.m. Ages 40-49 = 99 mL/min/1.73 sq.m. Ages 50-59 = 93 mL/min/1.73 sq.m. Ages 60-69 = 85 mL/min/1.73 sq.m. Ages 70+ = 75 mL/min/1.73 sq.m. Chronic Kidney Disease: Less than 60 mL/min/1.73 square meters End Stage Renal Disease: Less than 15 mL/min/1.73 square meters Performed By: #### A JOSE LUIS, CBC, GFR, ADIFF, BMP #### [address] [address] .NEUABSon 08-26-2023 Neutrophil, Absolute 2.7 10 3/mcL Low 2.9-6.2 [facility] ([place]) Comment on above: Performed By: #### A DIFF, BMP, ANSG, CBC, GFR, ABOG, ANEU, ALB #### [address] [address] ALBon 08-26-2023 Albumin Level 4.1 G/dL Normal 3.4-4.8 [facility]) Comment on above: Performed By: #### A JOSE LUIS, CBC, GFR, ADIFF, BMP #### [address] [address] BMPon 08-26-2023 BUN/Creatinine Ratio 24 ratio Normal 7-27 [facility] ([place]) Comment on above: Performed By: #### A DIFF, BMP, ANSG, CBC, GFR, ABOG, ANEU, ALB #### [address] [address] Calcium [Mass/Vol] 8.8 mg/dL Normal 8.4-10.2 [facility] ([place]) Comment on above: Performed By: #### A DIFF, BMP, ANSG, CBC, GFR, ABOG, ANEU, ALB #### [address] [address] Chloride [Moles/Vol] 104 mmol/L Normal 98-107 [facility] ([place]) Comment on above: Performed By: #### A DIFF, BMP, ANSG, CBC, GFR, ABOG, ANEU, ALB #### [address] [address] CO2 [Moles/Vol] 26 mmol/L Normal 23-31 [facility] ([place]) Comment on above: Performed By: #### A DIFF, BMP, ANSG, CBC, GFR, ABOG, ANEU, ALB #### [address] [address] Creatinine [Mass/Vol] 0.90 mg/dL Normal 0.55-1.02 [facility] ([place]) Comment on above: Performed By: #### A DIFF, BMP, ANSG, CBC, GFR, ABOG, ANEU, ALB #### [address] [address] Electrolyte Balance 11.0 mEq/L Normal 4.0-15.0 [facility] ([place]) Comment on above: Performed By: #### A DIFF, BMP, ANSG, CBC, GFR, ABOG, ANEU, ALB #### [address] [address] Glucose [Mass/Vol] 84 mg/dL Normal 83-110 [facility] ([place]) Comment on above: Performed By: #### A DIFF, BMP, ANSG, CBC, GFR, ABOG, ANEU, ALB #### [address] [address] Potassium [Moles/Vol] 4.5 mmol/L Normal 3.5-5.1 [facility] ([place]) Comment on above: Performed By: #### A DIFF, BMP, ANSG, CBC, GFR, ABOG, ANEU, ALB #### [address] [address] Sodium [Moles/Vol] 141 mmol/L Normal 136-145 [facility] ([place]) Comment on above: Performed By: #### A DIFF, BMP, ANSG, CBC, GFR, ABOG, ANEU, ALB #### [address] [address] Urea nitrogen [Mass/Vol] 22 mg/dL High 7-18 [facility] ([place]) Comment on above: Performed By: #### A DIFF, BMP, ANSG, CBC, GFR, ABOG, ANEU, ALB #### [address] [address] CBCon 08-26-2023 Erythrocyte distribution width (RBC) [Ratio] 13.9 % Normal 11.5-14.5 [facility] ([place]) Comment on above: Order Comment: Pre-A dmission Testing Performed By: #### A DIFF, BMP, ANSG, CBC, GFR, ABOG, ANEU, ALB #### [place] [address] Hematocrit (Bld) [Volume fraction] 35.1 % Low 37.0-47.0 [facility] ([place]) Comment on above: Order Comment: Pre-A dmission Testing Performed By: #### A DIFF, BMP, ANSG, CBC, GFR, ABOG, ANEU, ALB #### [place] [address] Hgb 12.1 G/dL Normal 12.0-16.0 [facility] ([place]) Comment on above: Order Comment: Pre-A dmission Testing Performed By: #### A DIFF, BMP, ANSG, CBC, GFR, ABOG, ANEU, ALB #### [place] [id number] MCH (RBC) [Entitic mass] 29.9 pg Normal 27.0-31.2 [facility] ([place]) Comment on above: Order Comment: Pre-A dmission Testing Performed By: #### A DIFF, BMP, ANSG, CBC, GFR, ABOG, ANEU, ALB #### [place] [address] MCHC 34.4 G/dL Normal 33.0-37.0 [facility] ([place]) Comment on above: Order Comment: Pre-A dmission Testing Performed By: #### A DIFF, BMP, ANSG, CBC, GFR, ABOG, ANEU, ALB #### [place] [id number] MCV (RBC) [Entitic vol] 86.9 fL Normal 80.0-94.0 A [facility] ([place]) Comment on above: Order Comment: Pre-A dmission Testing Performed By: #### A DIFF, BMP, ANSG, CBC, GFR, ABOG, ANEU, ALB #### [address] [address] Platelet 171 10 3/mcL Normal 130-400 [facility] ([place]) Comment on above: Order Comment: Pre-A dmission Testing Performed By: #### A DIFF, BMP, ANSG, CBC, GFR, ABOG, ANEU, ALB #### [address] [address] Platelet mean volume (Bld) [Entitic vol] 9.0 fL Normal 7.4-10.4 [facility] ([place]) Comment on above: Order Comment: Pre-A dmission Testing Performed By: #### A DIFF, BMP, ANSG, CBC, GFR, ABOG, ANEU, ALB #### [address] [address] RBC 4.04 10 6/mcL Low 4.20-5.40 [facility] ([place]) Comment on above: Order Comment: Pre-A dmission Testing Performed By: #### A DIFF, BMP, ANSG, CBC, GFR, ABOG, ANEU, ALB #### [address] [address] WBC 5.1 10 3/mcL Normal 4.6-10.8 [facility] ([place]) Comment on above: Order Comment: Pre-A dmission Testing Performed By: #### A DIFF, BMP, ANSG, CBC, GFR, ABOG, ANEU, ALB #### [address] [address] [address] KNEE W/O CONTRAST RIGHTon 08-26-2023 CT KNEE W/O CONTRAST RIGHT ORIGINAL EXAMINATION: CT of the right knee [...] ipsilateral hip and ankle demonstrate comment hamstrings calcifications/enthesop athy. In the pelvis, there is diverticulosis without [...] Sign Date: 08/26/2023 4:18:41 PM Ordering Provider: JOSE RAMON ZULUAGA Normal [facility]) Gel ABOon 08-26-2023 ABO/Rh Interp Positive Invalid Interpretation Code [facility]) Comment on above: Performed By: #### A JOSE LUIS, CBC, GFR, ADIFF, BMP #### [address] [address] Gel ABSon 08-26-2023 Antibody Screen Gel Negative Normal [facility]) Comment on above: Performed By: #### A JOSE LUIS, CBC, GFR, ADIFF, BMP #### [address] [address] LABORATORYOrdered By: Blossom Zarate on 08-26-2023 ABO/Rh Interp Positive Invalid Interpretation Code AO BB SS Antibody Screen Gel Negative ABSC (08/26/23 12:29 PM) Invalid Interpretation Code AO BB SS LABORATORYOrdered By: SYSTEM SYSTEM on 08-26-2023 Albumin BCP dye [Mass/Vol] 4.1 G/dL Invalid Interpretation Code 3.4 - 4.8 G/dL AO ADM SS Basophil, Absolute 0.1 103/mcL Invalid Interpretation Code 0.0 - 0.2 10^3/mcL AO Workflow SS Basophils/100 WBC (Bld) 1.0 % Invalid Interpretation Code 0.0 - 2.5 % AO Workflow SS Calcium [Mass/Vol] 8.8 mg/dL Invalid Interpretation Code 8.4 - 10.2 mg/dL AO ADM SS Chloride [Moles/Vol] 104 mmol/L Invalid Interpretation Code 98 - 107 mmol/L AO ADM SS CO2 [Moles/Vol] 26 mmol/L Invalid Interpretation Code 23 - 31 mmol/L AO ADM SS Creatinine [Mass/Vol] 0.90 mg/dL Invalid Interpretation Code 0.55 - 1.02 mg/dL AO ADM SS Electrolyte Balance 11.0 mEq/L Invalid Interpretation Code 4.0 - 15.0 mEq/L AO ADM SS Eosinophil, Absolute 0.1 103/mcL Invalid Interpretation Code 0.0 - 0.4 10^3/mcL AO Workflow SS Eosinophils/100 WBC (Bld) 2.6 % Invalid Interpretation Code 0.0 - 7.0 % AO Workflow SS Erythrocyte distribution width (RBC) [Ratio] 13.9 % Invalid Interpretation Code 11.5 - 14.5 % AO Workflow SS GFR/1.73 sq M.predicted among blacks MDRD (S/P/Bld) [Vol rate/Area] 73 ml/min/1.73sqm Invalid Interpretation Code [facility] Chemistry S Comment on above: Interpretive Data: GFR Population mean for , Non- Americans Ages 20-29 = 116 mL/min/1.73 sq.m. Ages 30-39 = 107 mL/min/1.73 sq.m. Ages 40-49 = 99 mL/min/1.73 sq.m. Ages 50-59 = 93 mL/min/1.73 sq.m. Ages 60-69 = 85 mL/min/1.73 sq.m. Ages 70+ = 75 mL/min/1.73 sq.m. Chronic Kidney Disease: Less than 60 mL/min/1.73 square meters End Stage Renal Disease: Less than 15 mL/min/1.73 square meters GFR/1.73 sq M.predicted among non-blacks MDRD (S/P/Bld) [Vol rate/Area] 60 ml/min/1.73sqm Invalid Interpretation Code AO Chemistry S Comment on above: Interpretive Data: GFR Population mean for , Non- Americans Ages 20-29 = 116 mL/min/1.73 sq.m. Ages 30-39 = 107 mL/min/1.73 sq.m. Ages 40-49 = 99 mL/min/1.73 sq.m. Ages 50-59 = 93 mL/min/1.73 sq.m. Ages 60-69 = 85 mL/min/1.73 sq.m. Ages 70+ = 75 mL/min/1.73 sq.m. Chronic Kidney Disease: Less than 60 mL/min/1.73 square meters End Stage Renal Disease: Less than 15 mL/min/1.73 square meters Glucose [Mass/Vol] 84 mg/dL Invalid Interpretation Code 83 - 110 mg/dL AO ADM SS Hematocrit (Bld) [Volume fraction] 35.1 % Invalid Interpretation Code 37.0 - 47.0 % AO Workflow SS Hemoglobin (Bld) [Mass/Vol] 12.1 G/dL Invalid Interpretation Code 12.0 - 16.0 G/dL AO Workflow SS Lymphocyte, Absolute 1.8 103/mcL Invalid Interpretation Code 0.8 - 3.9 10^3/mcL AO Workflow SS Lymphocytes/100 WBC (Bld) 35.5 % Invalid Interpretation Code 10.0 - 50.0 % AO Workflow SS MCH (RBC) [Entitic mass] 29.9 pg Invalid Interpretation Code 27.0 - 31.2 pg AO Workflow SS MCHC 34.4 G/dL Invalid Interpretation Code 33.0 - 37.0 G/dL AO Workflow SS MCV (RBC) [Entitic vol] 86.9 fL Invalid Interpretation Code 80.0 - 94.0 fL AO Workflow SS Monocyte, Absolute 0.4 103/mcL Invalid Interpretation Code 0.2 - 1.0 10^3/mcL AO Workflow SS Monocytes/100 WBC (Bld) 7.9 % Invalid Interpretation Code 1.7 - 13.0 % AO Workflow SS Neutrophil, Absolute 2.7 103/mcL Invalid Interpretation Code 2.9 - 6.2 10^3/mcL AO Workflow SS Neutrophils/100 WBC (Bld) 53.0 % Invalid Interpretation Code 37.0 - 80.0 % AO Workflow SS Platelet mean volume (Bld) [Entitic vol] 9.0 fL Invalid Interpretation Code 7.4 - 10.4 fL AO Workflow SS Platelets (Bld) [#/Vol] 171 103/mcL Invalid Interpretation Code 130 - 400 10^3/mcL AO Workflow SS Potassium [Moles/Vol] 4.5 mmol/L Invalid Interpretation Code 3.5 - 5.1 mmol/L AO ADM SS RBC (Bld) [#/Vol] 4.04 106/mcL Invalid Interpretation Code 4.20 - 5.40 10^6/mcL AO Workflow SS Sodium [Moles/Vol] 141 mmol/L Invalid Interpretation Code 136 - 145 mmol/L AO ADM SS Urea nitrogen [Mass/Vol] 22 mg/dL Invalid Interpretation Code 7 - 18 mg/dL AO ADM SS Urea nitrogen/Creatinine [Mass ratio] 24 ratio Invalid Interpretation Code 7 - 27 ratio AO ADM SS WBC (Bld) [#/Vol] 5.1 103/mcL Invalid Interpretation Code 4.6 - 10.8 10^3/mcL AO Workflow SS LABORATORYOrdered By: Lashon Randall on 08-26-2023 MRSA DNA DEDRICK+probe Ql (Unsp spec) Not Detected 1 (08/26/23 12:29 PM) Invalid Interpretation Code Not Detected Auto Viro/Sero SS Comment on above: Result Comment: [place] [id number] MRSA PCR Int MRSA DNA not detecte d by Real-Time Polymerase Chain Reaction (PCR). A negative result may be due to intermittent colonization. Colonization may vary depending on patient treatment, patient status, or exposure to high-risk environments.As with all PCR based in vitro diagnostic tests, extremely low levels of target below the limit of detection of the assay may be detected, but results may not be reproducible. Invalid Interpretation Code Auto Viro/Sero SS MRSAPCRon 08-26-2023 MRSA (PCR) Not detected Normal Not Detected [facility] ([place]) Comment on above: Result Comment: [place] [id number] Performed By: #### A JOSE LUIS, CBC, GFR, ADIFF, BMP #### [address] [address] MRSA PCR Int Normal [facility] ([place]) Comment on above: Result Comment: MRSA DNA not detected by Real-Time Polymerase Chain Reaction (PCR). A negative result may be due to intermittent colonization. Colonization may vary depending on patient treatment, patient status, or exposure to high-risk environments. As with all PCR based in vitro diagnostic tests, extremely low levels of target below the limit of detection of the assay may be detected, but results may not be reproducible. See Below Performed By: #### A JOSE LUIS, CBC, GFR, ADIFF, BMP #### [address] [place], [place] [address] Absolute lymphocyte countOrd ered By: Alex Giang on 08-12-2023 Lymphocytes Auto (Unsp spec) [#/Vol] 1.91 10*3/uL 0.83-4.51 [facility] Basophil percentageOrdered B y: Alex Giang on 08-12-2023 Basophils/100 WBC (Bld) 1.2 % 0-1 [facility] Bilirubin [Mass/Vol] 0.40 mg/dL 0.20-1.00 [facility] Comment on above: For patients on eltr ombopag therapy, use of Dimension Mobile TBIL is not recommended. Chloride [Moles/Vol] 110 mmol/L 98-107 [facility] Eosinophils/100 WBC (Bld) 2.8 % 0-5 [facility] Glucose [Mass/Vol] 114 mg/dL 74-106 [facility] Comment on above: Fasting Glucose resu lt from 100 to 125 mg/dL suggests IMPAIRED HOMEOSTASIS per A.D.A. criteria. Neutrophils (Bld) [#/Vol] 1.8 10*3/uL 2.0-7.7 [facility] Neutrophils/100 WBC (Bld) 42.4 % 47-70 [facility] Potassium [Moles/Vol] 3.9 mmol/L 3.5-5.[address] [facility] Protein [Mass/Vol] 6.7 g/dL 6.4-8.2 [facility] Sodium [Moles/Vol] 139 mmol/L 136-145 [facility] WBC (Bld) [#/Vol] 4.3 10*3/uL 4.4-11.0 [facility] Blood erythrocytes count (nu mber/volume)Ordered By: Alex Giang on 08-12-2023 RBC (Bld) [#/Vol] 4.01 10*6/uL 4.2-5.4 [facility] Blood hemoglobin measurement (mass/volume)Ordered By: Alex Giang on 08-12-2023 Hemoglobin (Bld) [Mass/Vol] 12.0 g/dL 12.0-15.0 [facility] Blood lymphocytes/100 leukoc ytesOrdered By: Alex Giang on 08-12-2023 Lymphocytes/100 WBC (Bld) 44.0 % 19-41 [facility] Blood monocytes/100 leukocyt esOrdered By: Alex Giang on 08-12-2023 Monocytes/100 WBC (Bld) 9.4 % 0-10 [facility] Blood platelet mean volumeOr dered By: Alex Giang on 08-12-2023 Platelet mean volume (Bld) [Entitic vol] 10.5 fL 6.2-12.0 [facility] Determination of erythrocyte mean corpuscular volume (MCV)Ordered By: Alex Giang on 08-12-2023 MCV (RBC) [Entitic vol] 90.0 fL 81-99 [facility] Erythrocyte sedimentation ra teOrdered By: Alex Giang on 08-12-2023 ESR (Bld) [Velocity] 3 mm/h 0-30 [facility] Hematocrit Auto (Bld) [Volum e fraction]Ordered By: Alex Giang on 08-12-2023 Hematocrit (Bld) [Volume fraction] 36.1 % 37-47 [facility] Laboratory - Chemistry and C hemistry - challengeOrdered By: Alex Giang on 08-12-2023 ALP [Catalytic activity/Vol] 81 U/L 45-117 [facility] ALT [Catalytic activity/Vol] 22 U/L 13-56 [facility] CO2 [Moles/Vol] 25.0 mmol/L 21.0-32.0 [facility] Cobalamin (Vitamin B12) [Mass/Vol] 335 pg/mL 211-911 [facility] Free T4 [Mass/Vol] 0.84 ng/dL 0.76-1.46 [facility] Globulin (S) [Mass/Vol] 2.9 g/dL 2.2-4.2 [facility] Urea nitrogen/Creatinine [Mass ratio] 24.1 mg/mg 10-20 [facility] Laboratory - Hematology and Cell countsOrdered By: Alex Giang on 08-12-2023 Erythrocyte distribution width (RBC) [Entitic vol] 43.3 fL 35.1-43.9 [facility] Erythrocyte distribution width (RBC) [Ratio] 13.2 % 11.6-14.6 [facility] Immature granulocytes/100 WBC (Bld) 0.200 % 0.0-0.9 [facility] Comment on above: IG% - Immature Granu locytes (promyelocytes, myelocytes and metamyelocytes) > 1% indicates that a LEFT SHIFT is Present. MCH (RBC) [Entitic mass] 29.9 pg 27.0-32.0 [facility] Nucleated RBC/100 WBC (Bld) [Ratio] 0 % 0-5 [facility] MCHC Auto (RBC) [Mass/Vol]Or dered By: Alex Giang on 08-12-2023 MCHC (RBC) [Mass/Vol] 33.2 g/dL 32-[address] [facility] No Panel InformationOrdered By: Alex Giang on 08-12-2023 Estimated GFR (MDRD) Amer 90 mL/min >60 [facility] Comment on above: GFR Calc Estimated GFR (MDRD) Non-Af Amer 74 mL/min >60 [facility] Comment on above: Non- GFR Calc Thyroid Stimulating Hormone (TSH) 2.69 uIU/mL 0.358-3.74 [facility] Vitamin D 25-Hydroxy 31.4 ng/mL [facility] Comment on above: Vitamin D 25(OH) Sta tus Range Deficiency <20 ng/mL (50nmol/L) Insufficiency 20 - 30 ng/mL (50 - 75 nmol/L) Sufficiency 30 - 100 ng/mL (75 - 250 nmol/L) Toxicity >100 ng/mL (>250 nmol/L) Platelets bldOrdered By: Andre Giang on 08-12-2023 Platelets (Bld) [#/Vol] 184 10*3/uL 150-450 [facility] Serum or plasma albumin josie urement (mass/volume)Ordered By: Alex Giang on 08-12-2023 Albumin [Mass/Vol] 3.8 g/dL 3.2-5.0 [facility] Serum or plasma albumin/glob ulin mass ratioOrdered By: Alex Giang on 08-12-2023 Albumin/Globulin [Mass ratio] 1.3 {ratio} 0.9-2.4 [facility] Serum or plasma calcium josie urement (mass/volume)Ordered By: Alex Giang on 08-12-2023 Calcium [Mass/Vol] 8.8 mg/dL 8.5-10.1 [facility] Serum or plasma creatinine m easurement (mass/volume)Ordered By: Alex Giang on 08-12-2023 Creatinine [Mass/Vol] 0.79 mg/dL 0.55-1.[address] [facility] Comment on above: The validity of the calculated GFR & GFRAA in patients over 70 years has not been determined. Clinical correlation is essential. Serum or plasma urea nitroge n measurement (mass/volume)Ordered By: Alex Giang on 08-12-2023 Urea nitrogen [Mass/Vol] 19 mg/dL 7-18 [facility] Thin prep Papanicolaou smear with manual screeningOrdered By: Alex Giang on 08-12-2023 Thin prep Papanicolaou smear with manual screening 17 U/L 15-37 [facility] Thin prep Papanicolaou smear with manual screening 4 5-15 [facility] Whole blood hemoglobin A1c/t otal hemoglobin ratio (mass fraction)Ordered By: Alex Giang on 08-12-2023 HbA1c (Bld) [Mass fraction] 4.7 % 3.8-5.6 [facility] Comment on above: Normal < 5.7 % Predi abetic 5.7 - 6.4 % Diabetic >or= 6.5 % Please note range changes. Absolute lymphocyte countOrd ered By: Torrey Bailey on 05-26-2023 Lymphocytes Auto (Unsp spec) [#/Vol] 1.47 10*3/uL 0.83-4.51 [facility] Basophil percentageOrdered B y: Torrey Bailey on 05-26-2023 Basophils/100 WBC (Bld) 0.0 % 0-1 [facility] Chloride [Moles/Vol] 107 mmol/L 98-107 [facility] Eosinophils/100 WBC (Bld) 0.0 % 0-5 [facility] Glucose [Mass/Vol] 97 mg/dL 74-106 [facility] Neutrophils (Bld) [#/Vol] 7.9 10*3/uL 2.0-7.7 [facility] Neutrophils/100 WBC (Bld) 78.5 % 47-70 [facility] Potassium [Moles/Vol] 4.2 mmol/L 3.5-5.[address] [facility] Sodium [Moles/Vol] 139 mmol/L 136-145 [facility] WBC (Bld) [#/Vol] 10.1 10*3/uL 4.4-11.0 [facility] Blood erythrocytes count (nu mber/volume)Ordered By: Torrey Bailey on 05-26-2023 RBC (Bld) [#/Vol] 4.13 10*6/uL 4.2-5.4 [facility] Blood hemoglobin measurement (mass/volume)Ordered By: Torrey Bailey on 05-26-2023 Hemoglobin (Bld) [Mass/Vol] 12.4 g/dL 12.0-15.0 [facility] Blood lymphocytes/100 leukoc ytesOrdered By: Torrey Bailey on 05-26-2023 Lymphocytes/100 WBC (Bld) 14.6 % 19-41 [facility] Blood monocytes/100 leukocyt esOrdered By: Torrey Bailey on 05-26-2023 Monocytes/100 WBC (Bld) 6.0 % 0-10 [facility] Blood platelet mean volumeOr dered By: Torrey Bailey on 05-26-2023 Platelet mean volume (Bld) [Entitic vol] 11.0 fL 6.2-12.0 [facility] Determination of erythrocyte mean corpuscular volume (MCV)Ordered By: Torrey Bailey on 05-26-2023 MCV (RBC) [Entitic vol] 91.8 fL 81-99 [facility] Hematocrit Auto (Bld) [Volum e fraction]Ordered By: Torrey Bailey on 05-26-2023 Hematocrit (Bld) [Volume fraction] 37.9 % 37-47 [facility] INR in Blood by Coagulation assayOrdered By: Torrey Bailey on 05-26-2023 INR Coag (Bld) [Relative time] 1.0 {INR} [facility] Laboratory - Chemistry and C hemistry - challengeOrdered By: Torrey Bailey on 05-26-2023 CO2 [Moles/Vol] 27.0 mmol/L 21.0-32.0 [facility] Urea nitrogen/Creatinine [Mass ratio] 33.4 mg/mg 10-20 [facility] Laboratory - CoagulationOrde red By: Torrey Bailey on 05-26-2023 aPTT Coag (Bld) [Time] 22.8 s 24.1-36.2 [facility] PT Coag (PPP) [Time] 13.5 s 11.7-14.9 [facility] Laboratory - Hematology and Cell countsOrdered By: Torrey Bailey on 05-26-2023 Erythrocyte distribution width (RBC) [Entitic vol] 43.6 fL 35.1-43.9 [facility] Erythrocyte distribution width (RBC) [Ratio] 13.1 % 11.6-14.6 [facility] Immature granulocytes/100 WBC (Bld) 0.900 % 0.0-0.9 [facility] Comment on above: IG% - Immature Granu locytes (promyelocytes, myelocytes and metamyelocytes) > 1% indicates that a LEFT SHIFT is Present. MCH (RBC) [Entitic mass] 30.0 pg 27.0-32.0 [facility] Nucleated RBC/100 WBC (Bld) [Ratio] 0 % 0-5 [facility] MCHC Auto (RBC) [Mass/Vol]Or dered By: Torrey Bailey on 05-26-2023 MCHC (RBC) [Mass/Vol] 32.7 g/dL 32-[address] [facility] No Panel InformationOrdered By: Torrey Bailey on 05-26-2023 Estimated GFR (MDRD) Amer 80 mL/min >60 [facility] Comment on above: GFR Calc Estimated GFR (MDRD) Non-Af Amer 66 mL/min >60 [facility] Comment on above: Non- GFR Calc Platelets bldOrdered By: Efren Bailey on 05-26-2023 Platelets (Bld) [#/Vol] 179 10*3/uL 150-450 [facility] Serum or plasma calcium josie urement (mass/volume)Ordered By: Torrey Bailey on 05-26-2023 Calcium [Mass/Vol] 8.7 mg/dL 8.5-10.1 [facility] Serum or plasma creatinine m easurement (mass/volume)Ordered By: Torrey Bailey on 05-26-2023 Creatinine [Mass/Vol] 0.87 mg/dL 0.55-1.[address] [facility] Comment on above: The validity of the calculated GFR & GFRAA in patients over 70 years has not been determined. Clinical correlation is essential. Serum or plasma urea nitroge n measurement (mass/volume)Ordered By: Torrey Bailey on 05-26-2023 Urea nitrogen [Mass/Vol] 29 mg/dL 7-18 [facility] Thin prep Papanicolaou smear with manual screeningOrdered By: Torrey Bailey on 05-26-2023 Thin prep Papanicolaou smear with manual screening 5 - [facility] Absolute lymphocyte counton 10-05-2022 Lymphocytes Auto (Unsp spec) [#/Vol] 2.17 10*3/uL 0.83-4.51 [facility] Work Phone: Basophil percentageon 2021 Basophils/100 WBC (Bld) 1.0 % 0-1 [facility] Work Phone: Bilirubin [Mass/Vol] 0.40 mg/dL 0.20-1.00 [facility] Work Phone: Comment on above: For patients on eltr ombopag therapy, use of [employer] TBIL is not recommended. Chloride [Moles/Vol] 108 mmol/L 98-107 [facility] Work Phone: Cholesterol [Mass/Vol] 177 mg/dL <200 [facility] Work Phone: Comment on above: <200 mg/dL Desirable 200-240 mg/dL Borderline >240 mg/dL High Risk Eosinophils/100 WBC (Bld) 3.2 % 0-5 [facility] Work Phone: Glucose [Mass/Vol] 94 mg/dL 74-106 [facility] Work Phone: Neutrophils (Bld) [#/Vol] 2.2 10*3/uL 2.0-7.7 [facility] Work Phone: Neutrophils/100 WBC (Bld) 43.3 % 47-70 [facility] Work Phone: [phone] Potassium [Moles/Vol] 4.1 mmol/L 3.5-5.[address] [facility] Work Phone: [phone] Protein [Mass/Vol] 6.4 g/dL 6.4-8.2 [facility] Work Phone: [phone] Sodium [Moles/Vol] 142 mmol/L 136-145 [facility] Work Phone: [phone] Triglyceride [Mass/Vol] 188 mg/dL <199 [facility] Work Phone: [phone] Comment on above: The drugs N-Acetylcy steine and Metamizole may falsely depress this assay.Serum Triglycerides Reference Interval Normal <150 mg/dL Borderline high 150 - 199 mg/dL High 200 - 499 mg/dL Very High > or = 500 mg/dL WBC (Bld) [#/Vol] 5.0 10*3/uL 4.4-11.0 [facility] Work Phone: Blood erythrocytes count (nu mber/volume)on 10-05-2022 RBC (Bld) [#/Vol] 4.03 10*6/uL 4.2-5.4 [facility] Work Phone: Blood hemoglobin measurement (mass/volume)on 10-05-2022 Hemoglobin (Bld) [Mass/Vol] 12.2 g/dL 12.0-15.0 [facility] Work Phone: Blood lymphocytes/100 leukoc yteson 10-05-2022 Lymphocytes/100 WBC (Bld) 43.5 % 19-41 [facility] Work Phone: [phone] Blood monocytes/100 leukocyt eson 10-05-2022 Monocytes/100 WBC (Bld) 8.8 % 0-10 [facility] Work Phone: Blood platelet mean volumeon 10-05-2022 Platelet mean volume (Bld) [Entitic vol] 10.6 fL 6.2-12.0 [facility] Work Phone: [phone] Determination of erythrocyte mean corpuscular volume (MCV)on 10-05-2022 MCV (RBC) [Entitic vol] 89.6 fL 81-99 [facility] Work Phone: [phone] Hematocrit Auto (Bld) [Volum e fraction]on 10-05-2022 Hematocrit (Bld) [Volume fraction] 36.1 % 37-47 [facility] Work Phone: [phone] Laboratory - Chemistry and C hemistry - challengeon 10-05-2022 ALP [Catalytic activity/Vol] 80 U/L 45-117 [facility] Work Phone: [phone] ALT [Catalytic activity/Vol] 22 U/L 13-56 [facility] Work Phone: [phone] CO2 [Moles/Vol] 26.0 mmol/L 21.0-32.0 [facility] Work Phone: [phone] Globulin (S) [Mass/Vol] 2.7 g/dL 2.2-4.2 [facility] Work Phone: [phone] Urea nitrogen/Creatinine [Mass ratio] 31.0 mg/mg 10-20 [facility] Work Phone: [phone] Laboratory - Hematology and Cell countson 10-05-2022 Erythrocyte distribution width (RBC) [Entitic vol] 43.9 fL 35.1-43.9 [facility] Work Phone: [phone] Erythrocyte distribution width (RBC) [Ratio] 13.2 % 11.6-14.6 [facility] Work Phone: [phone] Immature granulocytes/100 WBC (Bld) 0.200 % 0.0-0.9 [facility] Work Phone: [phone] Comment on above: IG% - Immature Granu locytes (promyelocytes, myelocytes and metamyelocytes) > 1% indicates that a LEFT SHIFT is Present. MCH (RBC) [Entitic mass] 30.3 pg 27.0-32.0 [facility] Work Phone: [phone] Nucleated RBC/100 WBC (Bld) [Ratio] 0 % 0-5 [facility] Work Phone: MCHC Auto (RBC) [Mass/Vol]on 10-05-2022 MCHC (RBC) [Mass/Vol] 33.8 g/dL 32-[address] [facility] Work Phone: No Panel Informationon 10-05 Estimated GFR (MDRD) Amer 96 mL/min >60 [facility] Work Phone: Comment on above: GFR Calc Estimated GFR (MDRD) Non-Af Amer 80 mL/min >60 [facility] Work Phone: Comment on above: Non- GFR Calc Vitamin D 25-Hydroxy 26.0 ng/mL [facility] Work Phone: Comment on above: Vitamin D 25(OH) Sta tus Range Deficiency <20 ng/mL (50nmol/L) Insufficiency 20 - 30 ng/mL (50 - 75 nmol/L) Sufficiency 30 - 100 ng/mL (75 - 250 nmol/L) Toxicity >100 ng/mL (>250 nmol/L) Platelets bldon 10-05-2022 Platelets (Bld) [#/Vol] 182 10*3/uL 150-450 [facility] Work Phone: [phone] Serum or plasma albumin josie urement (mass/volume)on 10-05-2022 Albumin [Mass/Vol] 3.7 g/dL 3.2-5.0 [facility] Work Phone: [phone] Serum or plasma albumin/glob ulin mass ratioon 10-05-2022 Albumin/Globulin [Mass ratio] 1.4 {ratio} 0.9-2.4 [facility] Work Phone: [phone] Serum or plasma calcium josie urement (mass/volume)on 10-05-2022 Calcium [Mass/Vol] 8.5 mg/dL 8.5-10.1 [facility] Work Phone: [phone] Serum or plasma cholesterol in HDL measurement (mass/volume)on 10-05-2022 Cholesterol in HDL [Mass/Vol] 72 mg/dL >40 [facility] Work Phone: [phone] Comment on above: The drugs N-Acetylcy steine and Metamizole may falsely depress this assay. Reference Range HDL <40 mg/dL Low HDL Cholesterol HDL >or= 60 mg/dL High HDL Cholesterol Serum or plasma cholesterol in VLDL measurement (mass/volume)on 10-05-2022 Cholesterol in VLDL [Mass/Vol] 38 mg/dL 5-40 [facility] Work Phone: [phone] Serum or plasma creatinine m easurement (mass/volume)on 10-05-2022 Creatinine [Mass/Vol] 0.74 mg/dL 0.55-1.[address] [facility] Work Phone: [phone] Comment on above: The validity of the calculated GFR & GFRAA in patients over 70 years has not been determined. Clinical correlation is essential. Serum or plasma low density lipoprotein (LDL) cholesterol measurement (mass/volume)on 10-05-2022 Cholesterol in LDL [Mass/Vol] 67 mg/dL 0-130 [facility] Work Phone: [phone] Serum or plasma urea nitroge n measurement (mass/volume)on 10-05-2022 Urea nitrogen [Mass/Vol] 23 mg/dL 7-18 [facility] Work Phone: [phone] Thin prep Papanicolaou smear with manual screeningon 10-05-2022 Thin prep Papanicolaou smear with manual screening 19 U/L 15-37 [facility] Work Phone: [phone] Thin prep Papanicolaou smear with manual screening 8 5-15 [facility] Work Phone: [phone] Absolute lymphocyte counton 02-18-2022 Lymphocytes Auto (Unsp spec) [#/Vol] 1.82 10*3/uL 0.83-4.51 [facility] Work Phone: [phone] Basophil percentageon 2021 Basophils/100 WBC (Bld) 0.7 % 0-1 [facility] Work Phone: [phone] Bilirubin [Mass/Vol] 0.60 mg/dL 0.20-1.00 [facility] Work Phone: [phone] Comment on above: For patients on eltr ombopag therapy, use of Dimension Mobile TBIL is not recommended. Chloride [Moles/Vol] 109 mmol/L 98-107 [facility] Work Phone: Eosinophils/100 WBC (Bld) 1.3 % 0-5 [facility] Work Phone: Glucose [Mass/Vol] 95 mg/dL 74-106 [facility] Work Phone: Neutrophils (Bld) [#/Vol] 3.0 10*3/uL 2.0-7.7 [facility] Work Phone: Neutrophils/100 WBC (Bld) 56.1 % 47-70 [facility] Work Phone: Potassium [Moles/Vol] 4.3 mmol/L 3.5-5.[address] [facility] Work Phone: Protein [Mass/Vol] 6.9 g/dL 6.4-8.2 [facility] Work Phone: Sodium [Moles/Vol] 140 mmol/L 136-145 [facility] Work Phone: WBC (Bld) [#/Vol] 5.4 10*3/uL 4.4-11.0 [facility] Work Phone: Blood erythrocytes count (nu mber/volume)on 02-18-2022 RBC (Bld) [#/Vol] 4.01 10*6/uL 4.2-5.4 [facility] Work Phone: Blood hemoglobin measurement (mass/volume)on 02-18-2022 Hemoglobin (Bld) [Mass/Vol] 12.0 g/dL 12.0-15.0 [facility] Work Phone: Blood lymphocytes/100 leukoc yteson 02-18-2022 Lymphocytes/100 WBC (Bld) 33.7 % 19-41 [facility] Work Phone: Blood monocytes/100 leukocyt eson 02-18-2022 Monocytes/100 WBC (Bld) 7.8 % 0-10 [facility] Work Phone: [phone] Blood platelet mean volumeon 02-18-2022 Platelet mean volume (Bld) [Entitic vol] 11.0 fL 6.2-12.0 [facility] Work Phone: [phone] Determination of erythrocyte mean corpuscular volume (MCV)on 02-18-2022 MCV (RBC) [Entitic vol] 90.0 fL 81-99 [facility] Work Phone: [phone] Hematocrit Auto (Bld) [Volum e fraction]on 02-18-2022 Hematocrit (Bld) [Volume fraction] 36.1 % 37-47 [facility] Work Phone: [phone] Laboratory - Chemistry and C hemistry - challengeon 02-18-2022 ALP [Catalytic activity/Vol] 82 U/L 45-117 [facility] Work Phone: [phone] ALT [Catalytic activity/Vol] 18 U/L 13-56 [facility] Work Phone: [phone] CO2 [Moles/Vol] 24.0 mmol/L 21.0-32.0 [facility] Work Phone: [phone] Globulin (S) [Mass/Vol] 2.8 g/dL 2.2-4.2 [facility] Work Phone: [phone] Urea nitrogen/Creatinine [Mass ratio] 25.7 mg/mg 10-20 [facility] Work Phone: [phone] Laboratory - Hematology and Cell countson 02-18-2022 Erythrocyte distribution width (RBC) [Entitic vol] 44.4 fL 35.1-43.9 [facility] Work Phone: [phone] Erythrocyte distribution width (RBC) [Ratio] 13.4 % 11.6-14.6 [facility] Work Phone: [phone] Immature granulocytes/100 WBC (Bld) 0.400 % 0.0-0.9 [facility] Work Phone: [phone] Comment on above: IG% - Immature Granu locytes (promyelocytes, myelocytes and metamyelocytes) > 1% indicates that a LEFT SHIFT is Present. MCH (RBC) [Entitic mass] 29.9 pg 27.0-32.0 [facility] Work Phone: [phone] Nucleated RBC/100 WBC (Bld) [Ratio] 0 % 0-5 [facility] Work Phone: [phone] MCHC Auto (RBC) [Mass/Vol]on 02-18-2022 MCHC (RBC) [Mass/Vol] 33.2 g/dL 32-[address] [facility] Work Phone: No Panel Informationon 02-18 Estimated GFR (MDRD) Amer 103 mL/min >60 [facility] Work Phone: Comment on above: GFR Calc Estimated GFR (MDRD) Non-Af Amer 85 mL/min >60 [facility] Work Phone: Comment on above: Non- GFR Calc Platelets bldon 02-18-2022 Platelets (Bld) [#/Vol] 205 10*3/uL 150-450 [facility] Work Phone: Serum or plasma albumin josie urement (mass/volume)on 02-18-2022 Albumin [Mass/Vol] 4.1 g/dL 3.2-5.0 [facility] Work Phone: Serum or plasma albumin/glob ulin mass ratioon 02-18-2022 Albumin/Globulin [Mass ratio] 1.5 {ratio} 0.9-2.4 [facility] Work Phone: [phone] Serum or plasma calcium josie urement (mass/volume)on 02-18-2022 Calcium [Mass/Vol] 9.6 mg/dL 8.5-10.1 [facility] Work Phone: [phone] Serum or plasma creatinine m easurement (mass/volume)on 02-18-2022 Creatinine [Mass/Vol] 0.70 mg/dL 0.55-1.[address] [facility] Work Phone: Comment on above: The validity of the calculated GFR & GFRAA in patients over 70 years has not been determined. Clinical correlation is essential. Serum or plasma urea nitroge n measurement (mass/volume)on 02-18-2022 Urea nitrogen [Mass/Vol] 18 mg/dL 7-18 [facility] Work Phone: Thin prep Papanicolaou smear with manual screeningon 02-18-2022 Thin prep Papanicolaou smear with manual screening 15 U/L 15-37 [facility] Work Phone: Thin prep Papanicolaou smear with manual screening 7 5-15 [facility] Work Phone: CNPNon 07-15-2021 CNPN Telephone (ME2E) FRED MON ([id number]) 1940 F Date Time Provider Department 07/15/21 JIN HINDS MA2E During your visit today, we recorded the following information about you: Rosalinda Ferrell RN 07/15/2021 4:05 PM Signed Pt left VM on RN line stating she had some questions after appointment 04/30. Patient would like to know if we still have her cd with imaging? Pt received brace - does not use it, not having enough pain to warrant use. Patient would like to know if she is going to need surgery for this knee and if she does, she would like it sooner rather than later. Has not had a worsening of symptoms since last appointment but has travel plans. Patient will go to [place] for 3 months in November Patient is taking a trip to [place] next year. 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 Fred even went golfing yesterday and completed her round without any discomfort. I told her even though radiographically she would be a surgical candidate that given her functional status that I did not feel she was a surgical candidate at this time. If her pain becomes more of an issue than surgery risks may be worth taking. Fred agreed and will call if the pain does increase. CINTIA Conley Pss 07/17/2021 3:19 PM Signed PT returning call to the office to follow up on medical records that were not given back to her after her last office visit. PT stated the clinical staff were looking for them. Please contact the PT at home with an update on misplaced medical records. Merly Nikole Christiansen 07/22/2021 11:48 AM Signed I called patient back and had to leave a message. After checking the physicians office and the MA that works with Dr Becker we are unable to locate the disc with x-rays on it. Our typical protocol is to download the disc and hand it right back to the patient. I will continue to look and I told her that if I found anything I would give her a call back. Merly Christiansen Allergies As of Date: 07/15/2021 (No Known Allergies) Date Reviewed: 05/05/2021 Reviewed by: Jin Hinds MD - Fully Assessed Reason for Visit: Question [1327] Prescriptions as of 07/22/2021 - lovastatin 40 mg tablet Take 40 mg by mouth daily at bedtime. - diclofenac, EC, (VOLTAREN) 75 mg EC tablet Take 75 mg by mouth twice daily. - lisinopril (ZESTRIL, PRINIVIL) 10 mg tablet Take 10 mg by mouth once daily. - amLODIPine (NORVASC) 10 mg tablet Take 10 mg by mouth once daily. - Acetaminophen 500 mg cap Take by mouth. - aspirin 81 mg chewable tablet Take 81 mg by mouth once daily. - Vitamin E, dl, acetate, (VITAMIN E) 100 unit capsule Take 100 Units by mouth once daily. - cholecalciferol, vitamin D3, (VITAMIN D3 ORAL) Take by mouth. Problem List As Of Date: 07/15/2021 (None) Encounter Status:Closed by MERLY SCHMITT on 07/22/21 [facility] CNOVon 04-30-2021 OV Office Visit (ORMDNA ) FRED MON ([id number]) 1940 F Date Time Provider Department 04/30/21 10:40 AM JIN HINDS During your visit today, we recorded the following information about you: Weight Height 87.1 kg 1.638 m Jin Hinds MD 05/05/2021 8:44 PM Signed CONSULT ORTHOPAEDIC: KNEE PRIMARY CARE PHYSICIAN: No primary care provider on file. REFERRING PROVIDER: SELF ASSESSMENT AND PLAN Impression: Left Knee Severe Degenerative Osteoarthritis, Primary After discussion with Fred Mon, continued non-operative management of store merchandiser bracing and Voltaren gel was chosen. The [...] and healthy. The patient has been ordered: Stock Patch Sawyer brace CONSULTS: Patient does not require consults for optimization at this time. There is no problem list on file for this patient. SUBJECTIVE CHIEF COMPLAINT: Knee Pain HPI: Fred Mon is a 80 year old patient here for evaluation and management of left knee pain. Fred Mon has had progressive problems with the [...] specific incident that brought about this pain. Fred Mon states her left knee catches occasionally [...] mouth. PHYSICAL EXAM: Ht 165.1 cm (5' 5) Wt 87.1 kg (192 lb) BMI 31.95 [...] rotation adequate and no pain with log (more content not included)... Normal [facility] Vital Signs Date Time Vital Sign Value Performing Clinician Facility 01-04-2024 08:37-0500 Body temperature 98.3 [degF] Dr. Alex Giang Work Phone: [facility] 01-04-2024 08:37-0500 Diastolic blood pressure 82 mm[Hg] Dr. Alex Giang Work Phone: [facility] 01-04-2024 08:37-0500 Heart rate 82 /min Dr. Alex Giang Work Phone: [facility] 01-04-2024 08:37-0500 Respiratory rate 15 /min Dr. Alex Giang Work Phone: [facility] 01-04-2024 08:37-0500 SaO2% (BldA) [Mass fraction] 96 % Dr. Alex Giang Work Phone: [facility] 01-04-2024 08:37-0500 Systolic blood pressure 146 mm[Hg] Dr. Alex Giang Work Phone: [facility] 01-03-2024 13:15-0500 Body mass index (BMI) [Ratio] 31.2 kg/m2 Dr. Alex Giang Work Phone: [facility] 01-03-2024 13:15-0500 Body weight 85.[address] Alex Giang Work Phone: [facility] 12-28-2023 13:16-0500 Body height 165.[address] Alex Giang Work Phone: [facility] 12-28-2023 13:16-0500 Body weight 85.[address] Alex Giang Work Phone: [facility] 12-28-2023 12:48-0500 Body temperature 96.8 [degF] Dr. Alex Giang Work Phone: [facility] 12-28-2023 12:48-0500 Diastolic blood pressure 64 mm[Hg] Dr. Alex Giang Work Phone: [facility] 12-28-2023 12:48-0500 Heart rate 68 /min Dr. Alex Giang Work Phone: [facility] 12-28-2023 12:48-0500 Respiratory rate 18 /min Dr. Alex Giang Work Phone: [facility] 12-28-2023 12:48-0500 SaO2% (BldA) [Mass fraction] 98 % Dr. Alex Giang Work Phone: [facility] 12-28-2023 12:48-0500 Systolic blood pressure 136 mm[Hg] Dr. Alex Giang Work Phone: [facility] 12-27-2023 11:38-0500 Body mass index (BMI) [Ratio] 31.2 kg/m2 Dr. Alex Giang Work Phone: [facility] 12-23-2023 12:13-0500 Body temperature 98.7 [degF] Dr. Alex Giang Work Phone: [facility] 12-23-2023 09:30-0500 Diastolic blood pressure 73 mm[Hg] Dr. Alex Giang Work Phone: [facility] 12-23-2023 09:30-0500 Heart rate 69 /min Dr. Alex Giang Work Phone: [facility] 12-23-2023 09:30-0500 Respiratory rate 16 /min Dr. Alex Giang Work Phone: [facility] 12-23-2023 09:30-0500 SaO2% (BldA) [Mass fraction] 99 % Dr. Alex Giang Work Phone: [facility] 12-23-2023 09:30-0500 Systolic blood pressure 152 mm[Hg] Dr. Alex Giang Work Phone: [facility] 12-21-2023 12:46-0500 Inhaled oxygen flow rate 2 L/min Dr. Alex Giang Work Phone: [facility] 12-21-2023 12:38-0500 Body height 165.[address] Alex Giang Work Phone: [facility] 12-21-2023 12:38-0500 Body mass index (BMI) [Ratio] 31.8 kg/m2 Dr. Alex Giang Work Phone: [facility] 12-21-2023 12:38-0500 Body weight [address] Alex Giang Work Phone: [facility] 09-21-2023 14:24-0500 Body temperature 97.88 [degF] DR JOSE RAMON ZULUAGA MD [facility] 09-21-2023 14:24-0500 Diastolic Blood Pressure Non-Invasive 56 mm[Hg] DR JOSE RAMON ZULUAGA MD [facility] 09-21-2023 14:24-0500 Heart rate 66 /min DR JOSE RAMON ZULUAGA MD [facility] 09-21-2023 14:24-0500 Respiratory rate 20 /min DR JOSE RAMON ZULUAGA MD [facility] 09-21-2023 14:24-0500 Systolic Blood Pressure Non-Invasive 157 mm[Hg] DR JOSE RAMON ZULUAGA MD [facility] 09-21-2023 11:05-0500 Diastolic Blood Pressure Non-Invasive 67 mm[Hg] DR JOSE RAMON ZULUAGA MD [facility] 09-21-2023 11:05-0500 Systolic Blood Pressure Non-Invasive 158 mm[Hg] DR JOSE RAMON ZULUAGA MD [facility] 09-21-2023 10:31-0500 Body temperature 97.88 [degF] DR JOSE RAMON ZULUAGA MD [facility] 09-21-2023 10:31-0500 Diastolic Blood Pressure Non-Invasive 100 mm[Hg] DR JOSE RAMON ZULUAGA MD [facility] 09-21-2023 10:31-0500 Heart rate 75 /min DR JOSE RAMON ZULUAGA MD [facility] 09-21-2023 10:31-0500 Respiratory rate 20 /min DR JOSE RAMON ZULUAGA MD [facility] 09-21-2023 10:31-0500 Systolic Blood Pressure Non-Invasive 159 mm[Hg] DR JOSE RAMON ZULUAGA MD [facility] 09-21-2023 07:14-0500 Body temperature 97.88 [degF] DR JOSE RAMON ZULUAGA MD [facility] 09-21-2023 07:14-0500 Heart rate 68 /min DR JOSE RAMON ZULUAGA MD [facility] 09-21-2023 07:14-0500 Respiratory rate 20 /min DR JOSE RAMON ZULUAGA MD [facility] 09-20-2023 23:08-0500 Heart rate 67 /min DR JOSE RAMON ZULUAGA MD [facility] 09-20-2023 14:22-0500 Body temperature 96.62 [degF] DR JOSE RAMON ZULUAGA MD [facility] 09-20-2023 14:22-0500 Heart rate 58 /min DR JOSE RAMON ZULUAGA MD [facility] 09-20-2023 13:47-0500 Body height 165.[address] JOSE RAMON ZULUAGA MD [facility] 09-20-2023 13:47-0500 Body weight 87.[address] JOSE RAMON ZULUAGA MD [facility] 09-20-2023 13:47-0500 Body weight 32.25 kg/m2 DR JOSE RAMON ZULUAGA MD [facility] 09-20-2023 13:38-0500 Body temperature 96.62 [degF] DR JOSE RAMON ZULUAGA MD [facility] 09-20-2023 13:38-0500 Heart rate 54 /min DR JOSE RAMON ZULUAGA MD [facility] 09-20-2023 12:25-0500 Body temperature 97.16 [degF] DR JOSE RAMON ZULUAGA MD [facility] 09-20-2023 12:20-0500 Respiratory Rate - Anes 21 br/min DR JOSE RAMON ZULUAGA MD [facility] 09-20-2023 12:15-0500 Respiratory Rate - Anes 25 br/min DR JOSE RAMON ZULUAGA MD [facility] 09-20-2023 12:10-0500 Respiratory Rate - Anes 26 br/min DR JOSE RAMON ZULUAGA MD [facility] 09-20-2023 10:30-0500 Heart rate 59 /min DR JOSE RAMON ZULUAGA MD [facility] 09-20-2023 08:52-0500 Body height 165.[address] JOSE RAMON ZULUAGA MD [facility] 09-20-2023 08:52-0500 Body temperature 97.7 [degF] DR JOSE RAMON ZULUAGA MD [facility] 09-20-2023 08:52-0500 Body weight 87.[address] JOSE RAMON ZULUAGA MD [facility] 09-20-2023 08:52-0500 Heart rate 65 /min DR JOSE RAMON ZULUAGA MD [facility] 08-26-2023 11:55-0400 Blood Pressure Cuff Size DR JOSE RAMON ZULUAGA MD [facility] 08-26-2023 11:55-[address] JOSE RAMON ZULUAGA MD [facility] 08-26-2023 11:55-[address] JOSE RAMON Sol [facility] 08-26-2023 11:55-0400 Body height 165.[address] JOSE RAMON ZULUAGA MD [facility] 08-26-2023 11:55-0400 Body weight 87.[address] JOSE RAMON ZULUAGA MD [facility] 08-26-2023 11:55-0400 Body weight 32.25 kg/m2 DR JOSE RAMON ZULUAGA MD [facility] 08-26-2023 11:55-0400 Diastolic Blood Pressure Non-Invasive [address] JOSE RAMON ZULUAGA MD [facility] 08-26-2023 11:55-0400 Heart rate 64 /min DR JOSE RAMON ZULUAGA MD [facility] 08-26-2023 11:55-0400 Systolic Blood Pressure Non-Invasive [address] JOSE RAMON ZULUAGA MD [facility] 05-26-2023 16:15-0400 Diastolic blood pressure 109 mm[Hg] [facility] 05-26-2023 16:15-0400 Heart rate 55 /min [facility] 05-26-2023 16:15-0400 Respiratory rate 18 /min [facility] 05-26-2023 16:15-0400 Systolic blood pressure 150 mm[Hg] [facility] 05-26-2023 14:08-0400 SaO2% (BldA) [Mass fraction] 96 % [facility] 05-26-2023 13:59-0400 Body height 165.1 cm [facility] 05-26-2023 13:59-0400 Body temperature 97 [degF] [facility] 05-24-2023 21:07-0400 Body height 165.1 cm [facility] 05-24-2023 21:07-0400 Body mass index (BMI) [Ratio] 33.3 kg/m2 [facility] 05-24-2023 21:07-0400 Body temperature 97.8 [degF] [facility] 05-24-2023 21:07-0400 Body weight 90.8 kg [facility] 05-24-2023 21:07-0400 Diastolic blood pressure 96 mm[Hg] [facility] 05-24-2023 21:07-0400 Heart rate 93 /min [facility] 05-24-2023 21:07-0400 Respiratory rate 16 /min [facility] 05-24-2023 21:07-0400 SaO2% (BldA) [Mass fraction] 98 % [facility] 05-24-2023 21:07-0400 Systolic blood pressure 227 mm[Hg] [facility] 06-23-2022 09:23-0400 Body height 165.[address] Alex Giang Work Phone: [facility] Work Phone: 06-23-2022 09:22-0400 Body mass index (BMI) [Ratio] 31.3 kg/m2 Dr. Alex Giang Work Phone: [facility] [facility] Work Phone: 06-23-2022 09:22-0400 Body weight 85.[address] Alex Giang Work Phone: [facility] Work Phone: 06-23-2022 09:22-0400 Diastolic blood pressure 83 mm[Hg] Dr. Aelx Giang Work Phone: [facility] Work Phone: 06-23-2022 09:22-0400 Systolic blood pressure 167 mm[Hg] Dr. Alex Giang Work Phone: [facility] Work Phone: Encounters Encounter Date Encounter Type Care Provider Facility Start: 06-10-2025 ambulatory Alex Giang Facilit y:[facility] Start: 02-27-2025 End: 02-27-2025 ambulatory Alex Giang Facility:[facility] Start: 10-09-2024 ambulatory Alex Giang Facilit y:[facility] Start: 09-13-2024 End: 09-13-2024 ambulatory Alex Giang Facility:[facility] Start: 08-10-2024 End: 08-10-2024 Emergency department patient visit Alex Giang Facility:[facility] Start: 08-07-2024 End: 08-07-2024 ambulatory Alex Giang Facility:[facility] Start: 07-06-2024 End: 07-06-2024 ambulatory Alex Giang Facility:[facility] Start: 12-23-2023 Non-patient / Non-visit Dr. Ina Giang Work Phone: [facility] Start: 12-23-2023 End: 12-23-[address] Alex Giang Work Phone: [facility] Work Phone: Start: 12-23-2023 End: 12-23-[address] Alex Giang Work Phone: [facility]Cardiovascular Services Work Phone: Start: 12-23-2023 End: 01-04-2024 Evaluation and management of inpatient Dr. Alex Giang Work Phone: [facility]Transitional Care Unit Start: 12-22-2023 Non-patient / Non-visit Dr. Ina Giang Work Phone: [facility] Work Phone: Start: 12-21-2023 End: 12-23-2023 Evaluation and management of inpatient Dr. Alex Giang Work Phone: [facility]Medical Surgical 3 Work Phone: Start: 12-08-2023 End: 12-08-2023 Non-patient / Non-visit Dr. Alex Giang Work Phone: [facility] Work Phone: Start: 11-30-2023 End: 11-30-2023 ambulatory [facility] Work Phone: Start: 11-30-2023 End: 11-30-2023 Patient encounter procedure [facility] Work Phone: Start: 11-03-[address] JOSE RAMON ALTAMIRANO MD Facility:B Start: 11-02-[address] JOSE RAMON ALTAMIRANO MD Facility:B Start: 10-27-2023 End: 10-27-2023 ambulatory [facility] Work Phone: Start: 10-27-2023 End: 10-27-2023 Patient encounter procedure [facility]Cardi[facility] Work Phone: Start: 10-14-2023 End: 10-14-2023 ambulatory [facility] Work Phone: Start: 10-14-2023 End: 10-14-2023 Patient encounter procedure [facility] Work Phone: Start: 09-20-2023 End: 09-21-2023 ambulatory ALEX GIANG MD Facility:B Start: 09-20-2023 End: 09-21-[address] JOSE RAMON ZULUAGA MD [facility] Start: 08-26-2023 End: 08-27-[address] JOSE RAMON ZULUAGA MD Facility:B Start: 08-26-2023 End: 08-26-[address] JOSE RAMON ZULUAGA MD [facility] Start: 08-26-2023 End: 08-26-[address] JOSE RAMON ZULUAGA MD [facility] Start: 08-12-2023 End: 08-12-2023 Patient encounter procedure [facility] Start: 07-18-2023 End: 07-18-2023 ambulatory [facility] Work Phone: Start: 07-18-2023 End: 07-18-2023 Discharged Recurring [facility]-Physical Therapy Work Phone: Start: 07-04-2023 End: 07-04-2023 ambulatory [facility] Work Phone: Start: 07-04-2023 End: 07-04-2023 Patient encounter procedure [facility]Outpatient Breast Imaging Work Phone: Start: 05-26-2023 End: 05-26-2023 Emergency department patient visit [facility]Emergency [facility] Work Phone: Start: 05-24-2023 End: 05-24-2023 Emergency department patient visit [facility] Work Phone: Start: 10-26-2022 Non-patient / Non-visit Dr. Ina Giang Work Phone: [facility] Start: 10-26-2022 End: 10-26-[address] Alex Giang Work Phone: [facility] Work Phone: Start: 10-26-2022 End: 10-26-[address] [facility] Start: 10-06-2022 Non-patient / Non-visit Dr. Ina Giang Work Phone: [facility] Start: 10-06-2022 End: 10-06-[address] Alex Giang Work Phone: [facility] Work Phone: Start: 10-06-2022 End: 10-06-[address] [facility] Start: 10-06-2022 Non-patient / Non-visit Dr. Ina Giang Work Phone: [facility] Start: 10-05-2022 End: 10-05-[address] Alex Giang Work Phone: [facility] Work Phone: Start: 10-05-2022 End: 10-05-[address] Alex Giang Work Phone: [facility] Start: 07-02-2022 End: 07-02-[address] Alex Giang Work Phone: [facility] Work Phone: Start: 07-02-2022 End: 07-02-[address] Alex Giang Work Phone: [facility] Start: 06-30-2022 End: 06-30-[address] Alex Giang Work Phone: [facility] Work Phone: Start: 06-30-2022 End: 06-30-[address] Alex Giang Work Phone: [facility]Outpatient Breast Imaging Start: 06-23-2022 End: 06-23-[address] Alex Giang Work Phone: [facility] Start: 04-01-2022 End: 04-01-2022 Patient encounter procedure [facility]Outpatient Bone Densitometry Start: 02-18-2022 End: 02-18-2022 Patient encounter procedure [facility] [place] [facility] Start: 11-09-2021 End: 11-09-2021 Discharged Recurring [facility]-Physical Therapy Start: 11-02-2021 Patient encounter procedure [facility]Radiology, [place] Procedures Date Procedure Procedure Detail Performing Clinician Start: 12-24-[address] Alex Giang Work Phone: Start: 12-24-[address] Alex Giang Work Phone: Start: 12-23-2023 Plain chest X-ray Dr. Jarad Giang Work Phone: Start: 12-23-2023 Plain X-ray abdomen Dr. Alex Giang Work Phone: Start: 12-21-2023 Radiologic examinati on of knee Dr. Alex Giang Work Phone: Start: 12-21-2023 Total Knee Replaceme nt Robotic Arm Anali (Left) Dr. Alex Giang Work Phone: Start: 12-08-2023 Nasal Screen MRSA/MSSA Dr. Alex Giang Work Phone: Start: 11-30-2023 MRI of lower extremity Start: 07-04-2023 Screening mammography Start: 05-26-2023 CT of head without contrast Start: 05-24-2023 CT cervical spine wi thout contrast Start: 05-24-2023 CT of head without contrast Start: 10-26-2022 Cardiovascular stres s test using pharmacologic stress agent Dr. Alex Giang Work Phone: Start: 07-02-2022 Plain chest X-ray Dr. Jarad Giang Work Phone: Start: 06-30-2022 Screening mammography Sweta Giang Work Phone: Start: 04-01-2022 Dual energy X-ray absorptiometry Start: 11-02-2021 X-ray of cervical spine Arthroscopy of knee DR TONIE ZULUAGA MD Comment on above: LEFT Plan of Treatment Date Care Activity Detail Author Start: 01-21-2024 Blood chemistry [facility] Start: 01-14-2024 Blood chemistry [facility] Start: 01-07-2024 Blood chemistry [facility] Start: 01-04-2024 Patient discharge [facility] Start: 01-02-2024 [facility] Start: 12-31-2023 Blood chemistry [facility] Start: 12-30-2023 Referral to service [facility] Start: 12-26-2023 [facility] Start: 12-25-2023 Recommendation to tanya abrams with treatment [facility] Start: 12-25-2023 Speech therapy assessment [facility] Start: 12-24-2023 [facility] Start: 12-24-2023 Developing a treatment plan [facility] Start: 12-24-2023 Development of care plan [facility] Start: 12-24-2023 Application of device [facility] Start: 12-23-2023 [facility] Start: 12-23-2023 Verification routine [facility] Start: 12-23-2023 Admission procedure [facility] Start: 12-23-2023 Measuring intake and output [facility] Start: 12-23-2023 Patient referral to dietitian [facility] Start: 12-23-2023 Referral to occupati onal therapist [facility] Start: 12-23-2023 Referral to service [facility] Start: 12-23-2023 Vital signs measurements [facility] Start: 12-23-2023 End: 12-23-2023 [facility] Start: 12-23-2023 Patient discharge [facility] Start: 12-21-2023 Following clinical p athway protocol [facility] Start: 12-21-2023 Application of inter mittent pneumatic compression device [facility] Start: 12-21-2023 Provision of overbed trapeze [facility] Start: 12-21-2023 Ambulation therapy management [facility] Start: 12-21-2023 Application of device [facility] Start: 12-21-2023 Application of elast ic bandage [facility] Start: 12-21-2023 Assessment of risk o f venous thromboembolism [facility] Start: 12-21-2023 Catheterization of vein [facility] Start: 12-21-2023 Exercises [facility] Start: 12-21-2023 Following clinical p athway protocol [facility] Start: 12-21-2023 Introduction of urin bety catheter [facility] Start: 12-21-2023 Measuring intake and output [facility] Start: 12-21-2023 Neurovascular assessment [facility] Start: 12-21-2023 Patient education [facility] Start: 12-21-2023 Procedure discontinued [facility] Start: 12-21-2023 Provision of activit y privileges [facility] Start: 12-21-2023 Recommendation to tanya abrams with treatment [facility] Start: 12-21-2023 Referral to occupati onal therapist [facility] Start: 12-21-2023 Referral to service [facility] Start: 12-21-2023 Vital signs measurements [facility] Start: 12-21-2023 Wound care [facility] Start: 12-21-2023 [facility] Start: 12-21-2023 Consultation [facility] Start: 12-21-2023 Admission procedure [facility] Start: 05-26-2023 [facility] Start: 05-24-2023 Simple repair f/e/e/ n/l/m 2.6cm-5.0 cm RPR F/E/E/N/L/M 2.6-5.0 CM [facility] Anion gap measurement [facility] Anion gap measurement [facility] Anion gap measurement [facility] Anion gap measurement [facility] BUN/Creatinine ratio [facility] BUN/Creatinine ratio [facility] BUN/Creatinine ratio [facility] BUN/Creatinine ratio [facility] Calcium [Mass/volume ] in Serum or Plasma [facility] Calcium [Mass/volume ] in Serum or Plasma [facility] Calcium [Mass/volume ] in Serum or Plasma [facility] Calcium [Mass/volume ] in Serum or Plasma [facility] Carbon dioxide, tota l [Moles/volume] in Serum or Plasma [facility] Carbon dioxide, tota l [Moles/volume] in Serum or Plasma [facility] Carbon dioxide, tota l [Moles/volume] in Serum or Plasma [facility] Carbon dioxide, tota l [Moles/volume] in Serum or Plasma [facility] Chloride [Moles/volu me] in Serum or Plasma [facility] Chloride [Moles/volu me] in Serum or Plasma [facility] Chloride [Moles/volu me] in Serum or Plasma [facility] Chloride [Moles/volu me] in Serum or Plasma [facility] Creatinine [Moles/vo lume] in Serum or Plasma [facility] Creatinine [Moles/vo lume] in Serum or Plasma [facility] Creatinine [Moles/vo lume] in Serum or Plasma [facility] Creatinine [Moles/vo lume] in Serum or Plasma [facility] Erythrocyte mean cor puscular volume determination [facility] Erythrocyte mean cor puscular volume determination [facility] Erythrocyte mean cor puscular volume determination [facility] Erythrocyte mean cor puscular volume determination [facility] Glucose [Mass/volume ] in Serum or Plasma [facility] Glucose [Mass/volume ] in Serum or Plasma [facility] Glucose [Mass/volume ] in Serum or Plasma [facility] Glucose [Mass/volume ] in Serum or Plasma [facility] Hematocrit [Volume F raction] of Blood [facility] Hematocrit [Volume F raction] of Blood [facility] Hematocrit [Volume F raction] of Blood [facility] Hematocrit [Volume F raction] of Blood [facility] Hemoglobin [Mass/vol ume] in Blood [facility] Hemoglobin [Mass/vol ume] in Blood [facility] Hemoglobin [Mass/vol ume] in Blood [facility] Hemoglobin [Mass/vol ume] in Blood [facility] Leukocytes [#/volume ] in Blood [facility] Leukocytes [#/volume ] in Blood [facility] Leukocytes [#/volume ] in Blood [facility] Leukocytes [#/volume ] in Blood [facility] Mean corpuscular hem oglobin concentration determination [facility] Mean corpuscular hem oglobin concentration determination [facility] Mean corpuscular hem oglobin concentration determination [facility] Mean corpuscular hem oglobin concentration determination [facility] Mean corpuscular hem oglobin determination [facility] Mean corpuscular hem oglobin determination [facility] Mean corpuscular hem oglobin determination [facility] Mean corpuscular hem oglobin determination [facility] Measurement of renal function [facility] Measurement of renal function [facility] Measurement of renal function [facility] Measurement of renal function [facility] Neutrophil count [facility] Neutrophil count [facility] Neutrophil count [facility] Neutrophil count [facility] Neutrophil percent differential count [facility] Neutrophil percent differential count [facility] Neutrophil percent differential count [facility] Neutrophil percent differential count [facility] Patient Education [facility] Work Phone: Patient referral [facility] Work Phone: Platelets [#/volume] in Blood [facility] Platelets [#/volume] in Blood [facility] Platelets [#/volume] in Blood [facility] Platelets [#/volume] in Blood [facility] Potassium [Moles/vol ume] in Serum or Plasma [facility] Potassium [Moles/vol ume] in Serum or Plasma [facility] Potassium [Moles/vol ume] in Serum or Plasma [facility] Potassium [Moles/vol ume] in Serum or Plasma [facility] Red blood cell count [facility] Red blood cell count [facility] Red blood cell count [facility] Red blood cell count [facility] Red cell distributio n width determination [facility] Red cell distributio n width determination [facility] Red cell distributio n width determination [facility] Red cell distributio n width determination [facility] Sodium [Moles/volume ] in Serum or Plasma [facility] Sodium [Moles/volume ] in Serum or Plasma [facility] Sodium [Moles/volume ] in Serum or Plasma [facility] Sodium [Moles/volume ] in Serum or Plasma [facility] Urea nitrogen [Mass/ volume] in Serum or Plasma [facility] Urea nitrogen [Mass/ volume] in Serum or Plasma [facility] Urea nitrogen [Mass/ volume] in Serum or Plasma [facility] Urea nitrogen [Mass/ volume] in Serum or Plasma [facility] Immunizations Immunization Date Immunization Notes Care Provider [facility] 08-12-2023 influenza virus vacc ine, unspecified formulation DR JOSE RAMON ZULUAGA MD [facility] 08-12-2023 influenza, injectabl e, quadrivalent, preservative free Dr. Alex Giang Work Phone: [facility] 08-12-2023 pneumococcal 20-gabby nt conjugate vaccine DR JOSE RAMON ZULUAGA MD [facility] 08-12-2023 Pneumococcal Vaccine PCV20 (Prevnar 20) Dr. Alex Giang Work Phone: [facility] 05-24-2023 tetanus toxoid, redu annabelle diphtheria toxoid, and acellular pertussis vaccine, adsorbed [facility] 09-03-2022 influenza virus vacc ine, unspecified formulation DR JOSE RAMON ZULUAGA MD [facility] 08-31-2022 SARS-CoV-2 (CV19)mRNA-[address] JOSE RAMON ZULUAGA MD [facility] Comment on above: Result Comment: 2022: [id number] 03-02-2022 SARS-CoV-2 (COVID-19 ) mRNA-[address] JOSE RAMON ZULUAGA MD [facility] 09-11-2021 SARS-CoV-2 (COVID-19 ) mRNA-[address] JOSE RAMON ZULUAGA MD [facility] 09-04-2021 influenza virus vacc ine, unspecified formulation DR JOSE RAMON ZULUAGA MD [facility] 12-25-2020 SARS-CoV-2 (COVID-19 ) mRNA-[address] JOSE RAMON ZULUAGA MD [facility] 11-27-2020 Covid (Moderna) [facility] Comment on above: Result Comment: 2022: [id number] 08-01-2020 influenza virus vacc ine, unspecified formulation DR JOSE RAMON ZULUAGA MD [facility] 09-06-2018 influenza virus vacc ine, unspecified formulation DR JOSE RAMON ZULUAGA MD [facility] 06-10-2016 pneumococcal polysaccharide vaccine, [address] JOSE RAMON ZULUAGA MD [facility] 03-28-2015 pneumococcal conjuga te vaccine, [address] JOSE RAMON ZULUAGA MD [facility] 03-28-2015 tetanus toxoid, redu annabelle diphtheria toxoid, and acellular pertussis vaccine, adsorbed DR JOSE RAMON ZULUAGA MD [facility] 07-24-2012 influenza virus vacc ine, unspecified formulation DR JOSE RAMON ZULUAGA MD [facility] 05-13-2000 diphtheria and tetan us toxoids, adsorbed for pediatric use DR JOSE RAMON ZULUAGA MD [facility] Payers Date Payer Category Payer Medicare [id number] 2024 Self-pay [id number] 2012 Private Health Insurance [id number] 1940 Unknown [id number] 2.16.8 [id number] 1940 Unknown [id number] 2.16.8 [id number] 1940 Unknown [id number] 2.16.8 [id number] 1940 Unknown [id number] 2.16.8 [id number] 1940 Unknown [id number] 2.16.8 [id number] 1940 Unknown [id number] 2.16.8 [id number] Medicare [id number] Unknown [id number] 2.16.8 [id number] Unknown [id number] 2.16.8 [id number] Unknown [id number] 2.16.8 [id number] Unknown [id number] 2.16.8 [id number] Unknown [id number] 2.16.8 [id number] Unknown [id number] 2.16.8 [id number] Unknown [id number] 2.16.8 [id number] Social History Date Type Detail Facility Start: 04-29-2020 End: 12-23-2023 Tobacco smoking status NHIS Unknown if ever smoked [facility] Start: 1940 Sex Assigned At Female [facility] Start: 08-26-2023 Tobacco smoking status Never smoked tobacco (finding) [facility] NEGATED: Highlighted row [facility] Medical Equipment Procedure Code Equipment Code Equipment Origin al Text Equipment Identifier Dates ([id number]) Metal-backed pat mela prosthesis [id number] FDA Start: 12-21-2023 ([id number]) Coated knee femu r prosthesis ()[id number] [id number] FDA Start: 12-21-2023 ([id number]) Coated knee tibi a prosthesis ()[id number] [id number] FDA Start: 12-21-2023 ([id number]) Tibial insert ()[id number] [id number] FDA Start: 12-21-2023 Goals Date Patient Goal Desired Activity /State Functional Status Date Assessment Result Facility 01-04-2024 Functional status [facility] Work Phone: 01-03-2024 Functional status Tolerates Activity Fair [facility] Work Phone: 12-28-2023 Functional status Ambulates [facility] Work Phone: 12-27-2023 Functional status Tolerates Activity Well [facility] Work Phone: 12-23-2023 Functional status [facility]ulates [facility] Work Phone: 09-21-2023 Functional Status Mod I [facility] 09-21-2023 Functional Status 2 [facility] 09-21-2023 Functional Status Identified as high risk, Fall ID band on, Room located near nursing station, Bed alert on, Door open, Non-Slip footwear [facility] 09-21-2023 [facility] Status bilateral knee high applied/on [facility] 09-20-2023 Functional Status [facility] 09-20-2023 Functional Status [facility] 09-20-2023 Functional Status [facility] 09-20-2023 [facility] Single level home [facility] 09-20-2023 Functional Status [facility] 09-20-2023 Functional Status Maintained, More than 8 hours [facility] 08-26-2023 Functional Status Sensory Deficits None A [facility] Mental Status Date Assessment Result Facility 01-04-2024 Cognitive function Voice/Name [facility] Work Phone: 01-03-2024 Cognitive function Patient Orien tation Person;Place;Time [facility] Work Phone: 12-30-2023 Cognitive function Appropriate;[facility] Work Phone: 12-27-2023 Cognitive function Voice/Name [facility] Work Phone: 12-23-2023 [facility] function [facility]: 12-23-2023 Cognitive function Arousable To Voice/Nam [facility] Work Phone: 09-21-2023 Mental Status Orientation Asse ssment Oriented x 4 [facility] 09-21-2023 Mental Status Oriented x 4 [facility] 09-20-2023 Mental Status [facility] 09-20-2023 Mental Status [facility] 05-26-2023 Cognitive function Level Of Cons ciousness Awake;Alert;Appropriate;Follow s Commands [facility] Work Phone: Clinical Notes 04-30-2021 to 01-02-2024 Note Date & Type Note Facility 01-02-2024 Discharge summary Note Date/Time January 02, 2024 7:58am [facility] Medical Records Department [address] [place] [address] Discharge Summary 01/02/24 0756 MR#: [id number] Acct: [id number] Name: FRED MON Rep #:[id number] : 1940 83 From: Nima Harper MD PCP: Dr. Alex Giang MD Status:AD M IN Location: [facility]1 Providers Date of Admission: 12/23/23 Primary Care Physician: Dr. Alex Giang MD Reason For Visit: LEFT TOTAL KNEE ARTHROPLASTY WITH R Diagnosis Discharge Diagnosis (1) Debility: Status: Acute Code(s): R53.81 - Other malaise (2) Status post total left knee replacement: Status: Acute Code(s): Z96.652 - Presence of left artificial knee joint (3) Postoperative anemia: Status: Acute Code(s): D64.9 - Anemia, unspecified (4) Cellulitis of left knee: Status: Acute Code(s): L03.116 - Cellulitis of left lower limb (5) Edema of left lower extremity: Status: Acute Code(s): R60.0 - Localized edema (6) Acute encephalopathy: Status: Acute Code(s): G93.40 - Encephalopathy, unspecified (7) Hypertension: Status: Chronic Code(s): I10 - Essential (primary) hypertension (8) Hyperlipidemia: Status: Acute Code(s): E78.5 - Hyperlipidemia, unspecified (9) Carotid artery stenosis: Status: Acute Code(s): I65.29 - Occlusion and stenosis of unspecified carotid artery (10) Osteopenia: Status: Acute Code(s): M85.80 - Other specified disorders of bone density and structure, unspecified site Plan 82 year old female with below past medical history hospitalized for left TKA 12/21/[address] Zuluaga, postoperative course complicated by encephalopathy, anemia, admitted to TCU with debility, here for rehabilitation, strengthening, prior to discharge home alone. * Debility - PT/OT. * Pain - Tylenol 1000mg q8, Meloxicam 7.5mg bidcm, Oxycodone 5-10mg q4 prn * Bowel - senna/colace 2 tablets bid, Magnesium citrate 300ml daily prn. * Adult immunization - Administer pneumonia vaccine, covid vaccine, flu vaccine as appropriate. * DVT prophylaxis - Aspirin 81mg bidcm thru 01/18/2024. * Acute encephalopathy - cbcd, bmp, ua, c+s, covid-19, respiratory panel, CXR, KUB. * Hyperlipidemia - Atorvastatin 10mg qhs. * Cellulitis left knee - Keflex 500mg q12 thru 12/30/2023, Doxycycline 100mg bid thru 12/30/2023. * Left lower extremity edema - Doppler ultrasound left lower extremity. * Vitamin D deficiency - D3 25mcg daily. * Nutrition - Ensure Surgery 237ml tidcm. * GERD - Famotidine 20mg daily. * Hypertension - Lisinopril 10mg daily, blood pressure 180 systolic, Hydralazine 25mg po x 1 dose given. * Insomnia - Melatonin 3mg qhs. Medications at Discharge Home Medications lovastatin 40 mg tablet 40 mg PO DAILY Cholesterol 04/29/20 cholecalciferol (vitamin D3) 50 mcg (2,000 unit) capsule 50 mcg PO DAILY health maintenance 06/23/22 acetaminophen 500 mg tablet 1,000 mg (2 x 500 mg) PO Q8 pain #0 tabs 12/23/23 famotidine 20 mg tablet 20 mg PO DAILY Acid #0 tabs 12/23/23 acetaminophen 500 mg tablet 1,000 mg (2 x 500 mg) PO Q6 #0 tabs 01/02/24 aspirin 81 mg chewable tablet 81 mg PO BIDCM 14 days #0 tabs 01/02/24 losartan 100 mg tablet 100 mg PO DAILY 30 days #30 tabs 01/02/24 melatonin 10 mg sublingual tablet 10 mg PO QHS #0 tabs 01/02/24 meloxicam 7.5 mg tablet 7.5 mg PO BIDCM 30 days #60 tabs 01/02/24 tramadol 50 mg tablet 50 mg PO Q6H PRN PRN Pain Score 1-10 7 days #28 tabs 01/02/24 Hospital Course Operations total knee replacement (Left.) Procedures None Summary of Care Provided Minutes Spent on Discharge: 35 Hospital Course: 82 year old female with below past medical history hospitalized for left TKA 12/21/[address] Zuluaga, postoperative course complicated by encephalopathy, anemia, admitted to TCU with debility, here for rehabilitation, strengthening, prior to discharge home alone. Discharge home 01/04/2024, [facility] PT/OT. Physical Exam Const alert General Appearance: cooperative HEENT normocephalic Eyes PERRL and EOMs intact bilaterally Neck supple, no JVD and no carotid bruits Resp normal respiratory effort, normal air movement and clear to auscultation bilaterally Cardio regular rate and regular rhythm GI normal to inspection, nondistended, normoactive bowel sounds, non-tender and non-distended Extremity normal capillary refill General Extremity: Negative for edema Skin no rashes or lesions noted General Skin Exam: no breakdown Psych affect normal Appearance: appropriate Weight / BMI Weight Weight: 85.23 kg Body Mass Index (BMI) 31.2 ABG / Lab / Microbiology Data 12/31/23 07:16 12/31/23 07:16 Microbiology: Microbiology 12/24/23 12:30 Urine, Catheterized Urine Culture - Final Culture exhibits no growth. 12/24/23 05:00 Mucosa - Nasopharyngeal Respiratory Panel (PCR) - Final 12/23/23 14:00 Nasal Secretion SARS-CoV-2 Antigen (Rapid) - Final D/C Instructions Discharge Diet: No restrictions Discharge Activity: Return to Normal Activity, May Shower and Use Walker Weight Bearing Status: Weight bearing as tolerated Call your doctor if you observe: Fever of 101 or Higher, Inability to urinate, Inability to have a bowel movement, Shortness of breath, Dizziness, Fainting spells, Swelling in the ankles, Chest pain and Uncontrolled pain Additional Instructions: Discharge home 01/04/2024, [facility] PT/OT. Please Follow Up With: Michael Joel PA-C When: As scheduled. Meaningful Use Info Meaningful Use Diagnoses (Choose all that apply): None applicable Discharge Plan Admission Admit Date/Time: 12/23/23 12:41 Primary Reason for Your Visit: Debility. Attending Provider: Nima Haprer Chi Primary Care Provider: Alex Giang Instructions Additional Instructions / Restrictions: Discharge home 01/04/2024, [facility] PT/OT. Discharge Orders/Prescriptions Prescriptions: New acetaminophen 500 mg Tablet 1,000 mg PO Q6 Qty: 0 0RF tramadol 50 mg Tablet 50 mg PO Q6H PRN PRN (Reason: Pain Score 1-10) 7 Days Qty: 28 0RF meloxicam 7.5 mg Tablet 7.5 mg PO BIDCM 30 Days Qty: 60 0RF aspirin 81 mg Tablet,Chewable 81 mg PO BIDCM 14 Days Qty: 0 0RF losartan 100 mg Tablet 100 mg PO DAILY 30 Days Qty: 30 0RF melatonin 10 mg Tablet, Sublingual 10 mg PO QHS Qty: 0 0RF Continued cholecalciferol (vitamin D3) 50 mcg (2,000 unit) capsule 50 mcg PO DAILY lovastatin 40 MG tablet 40 mg PO DAILY famotidine 20 mg Tablet 20 mg PO DAILY Qty: 0 0RF Discontinued lisinopril 10 mg tablet 10 mg PO DAILY melatonin 3 mg Tablet 3 mg PO QHS Qty: 0 0RF meloxicam 7.5 mg Tablet 7.5 mg PO BID Qty: 0 0RF aspirin 81 mg Tablet,Chewable 81 mg PO BIDCM Qty: 0 0RF oxycodone 5 mg Tablet 5 - 10 mg PO Q4H PRN PRN (Reason: Pain Score 4-10) 5 Days Qty: 42 0RF Ensure Surgery 0.08-1.4 gram-kcal/mL Liquid 237 ml PO TIDCM Qty: 0 0RF sennosides-docusate sodium [Stool Softener-Stimulant Laxat] 8.6-50 mg Tablet 2 tab PO BID 5 Days Qty: 20 0RF No Action acetaminophen 500 mg Tablet 1,000 mg PO Q8 Qty: 0 0RF Referrals / Follow Up: Alex Giang MD [Primary Care Provider] - (Please make appt ulysses as pt needs seen prior to [facility] ) Disposition Disposition (needs filled in before D/C Order can be placed): Home Health Service 01/02/24 0801 <Electronically signed by Nima Harper MD> Cosigner Signature (if applicable): CC: Dr. Alex Giang MD; Dr. Nima Harper MD~ Signed [facility] Work Phone: [phone] Progress note Author Nima Leroy [facility] December 26, 2023 8:49am Note Date/Time December 26, 2023 8:09am [facility] Medical Records Department [address] [place] [address] Progress Note - Pharmacy 12/26/23806 MR#: [id number] Acct: [id number] Name: FRED MON Rep #:[id number] : 1940 83 From: Tiffanie Matias PCP: Dr. Alex Giang MD Status:AD M IN Location: TCU [facility]- Documented by User: Tiffanie Matias 12/26/23 08:18 TCU RX Drug Regimen Review Subjective/Objective Subjective/Objective: Subjective: TCU Admission. 83 YOF hospitalized for left TKA 12/21/[address] Zuluaga, postoperative course complicated by encephalopathy, anemia. Admitted to TCU with debility for strengthening and rehabilitation. Objective: Allergies No Known Allergies Allergy (Verified 12/21/23 06:41) Current Medications Generic Name Dose Route Start Last Admin Trade Name Freq PRN Reason Stop Dose Admin Acetaminophen 1,000 mg 12/23/23 14:00 12/26/23 04:04 Acetaminophen 500 Mg Tablet PO 1,000 mg Q8 ANDRADE Administration Aspirin 81 mg 12/23/23 17:00 12/25/23 17:56 Aspirin 81 Mg Tab.Chew PO 01/18/24 13:06 81 mg BIDCM ANDRADE Administration Atorvastatin Calcium 10 mg 12/23/23 22:00 12/25/23 21:39 Atorvastatin Calcium 10 Mg Tablet PO 10 mg QHS ANDRADE Administration Cephalexin 500 mg 12/23/23 14:15 12/25/23 21:39 Cephalexin 500 Mg Capsule PO 12/30/23 22:01 500 mg Q12 ANDRADE Administration Cholecalciferol 50 mcg 12/24/23 10:00 12/25/23 08:35 Cholecalciferol (Vit D3) 25 Mcg Tablet (1,000 Units) PO 50 mcg DAILY ANDRADE Administration Doxycycline Monohydrate 100 mg 12/23/23 14:10 12/25/23 21:39 Doxycycline 100 Mg Capsule PO 12/30/23 14:11 100 mg BID ANDRADE Administration Enteral Nutritional Formula 237 ml 12/23/23 17:45 12/25/23 17:57 Ensure Surgery 237 Ml Liquid PO Not Given TIDCM [facility] Famotidine 20 mg 12/24/23 10:00 12/25/23 08:35 Famotidine 20 Mg Tablet PO 20 mg DAILY ANDRADE Administration Lisinopril 10 mg 12/24/23 10:00 12/25/23 08:38 Lisinopril 10 Mg Tablet PO 10 mg DAILY ANDRADE Administration Protocol Melatonin 3 mg 12/23/23 22:00 12/25/23 21:39 Melatonin 3 Mg Tablet PO 3 mg QHS ANDRADE Administration Meloxicam 7.5 mg 12/23/23 17:00 12/25/23 17:56 Meloxicam 7.5 Mg Tablet PO 7.5 mg BIDCM [facility] Administration Senna/Docusate Sodium 2 tablet 12/23/23 22:00 12/25/23 21:39 Senna/Docusate Sodium 1 Tablet PO 2 tablet BID ANDRADE Administration Tramadol HCl 50 mg 12/25/23 21:25 Tramadol 50 Mg Tablet PO Q6H PRN PRN Pain Score 1-10 Tuberculin PPD 0.1 ml 12/31/23 10:00 Tuberculin,Purif.Prot.Deriv. 50 Tu/Ml Vial ID 12/31/23 10:01 X1 ONE Problem List (Updated 12/22/23 @ 10:[address] Stefano Avina MD) Osteopenia (Acute) Carotid artery stenosis (Acute) Hyperlipidemia (Acute) Hypertension (Chronic) Acute encephalopathy (Acute) Edema of left lower extremity (Acute) Cellulitis of left knee (Acute) Postoperative anemia (Acute) Debility (Acute) Status post total left knee replacement (Acute) Vital Signs Temp Pulse Resp BP Pulse Ox O2 Del Method 98.6 F 69 16 142/65 H 95 Room Air 12/25/23 14:43 12/25/23 14:43 12/25/23 14:43 12/25/23 14:43 12/25/23 14:43 12/25/23 14:43 Oxygen Delivery Method Room Air Weight: 86.455 kg Body Mass Index (BMI) 31.7 Sodium 138 mmol/L (136-145) 12/24/23 06:17 Potassium 3.7 mmol/L (3.5-5.1) 12/24/23 06:17 Chloride 107 mmol/L (98-107) 12/24/23 06:17 Carbon Dioxide 26.0 mmol/L (21.0-32.0) 12/24/23 06:17 Anion Gap 5 (5-15) 12/24/23 06:17 BUN 13 mg/dL (7-18) 12/24/23 06:17 Creatinine 0.62 mg/dL (0.55-1.02) 12/24/23 06:17 Est GFR (MDRD) Af Amer 117 mL/min (>60) 12/24/23 06:17 Est GFR (MDRD) Non-Af 97 mL/min (>60) 12/24/23 06:17 BUN/Creatinine Ratio 20.8 RATIO (10-20) H 12/24/23 06:17 Glucose 123 mg/dL (74-106) H 12/24/23 06:17 Assessment/Plan: 1. Pain: acetaminophen 1000mg PO Q8, meloxicam 7.5mg PO BIDCM and tramadol 50mg PO Q6H PRN pain 1-10. Resident has not had any doses of tramadol but did have doses of oxycodone. Please continue to monitor for increased pain, PRN usage, renal function, respiratory depression, constipation, falls/fractures (BEERs medication) and S/S of bleeding. 2. Bowel: senna/docusate 2T PO BID. Please continue to monitor for constipation and diarrhea. Last documented bowel movement was today. 3. DVT prophylaxis: aspirin 81mg PO BIDCM thru 01/18/24. Please continue to monitor for S/S of bleeding/DVT and hemoglobin (last 10.5g/dL). 4. Left knee cellulitis: cephalexin 500mg PO Q12 thru 12/30/23 and doxycycline 100mg PO BID thru 12/30/23. Please continue to monitor for S/S of infection, diarrhea and renal function (CrCl 57 mL/min). 5. Hyperlipidemia: atorvastatin 10mg PO QHS. Please continue to monitor lipid panel (last 10/14/23), LFTs (last 10/14/23) and muscle pain. 6. Hypertension: lisinopril 10mg PO daily. Please continue to monitor BP (last 142/65), potassium (last 3.7mmol/L), renal function and dry, hacking cough. 7. GERD: famotidine 20mg PO daily. Please continue to monitor for S/S of GERD and renal function. 8. Insomnia: melatonin 3mg PO QHS. Please continue to monitor for oversedation or insomnia. 9. Vitamin D deficiency: cholecalciferol 50mcg PO daily. Please continue to monitor vitamin D (last 10/14/23). Assessment/Plan for indications treated with psychotropic medications: None Medical chart and medication regimen reviewed. The following medication irregularities or issues were identified: None Date Date of Note:: 12/26/23 Documented by User: Dr. Nima Harper MD 12/26/23 08:49 [facility] RX Drug Regimen Review Provider Comments Provider responsibility Provider Comments to Recommendations by Pharmacy: Agree 12/26/23 0818 <Electronically signed by Tiffanie Matias> Tiffanie Matias Cosigner Signature (if applicable): 12/26/23 0849 <Electronically signed by Nima Harper MD> CC: ~ Signed [facility] Work Phone: [phone]) [phone] History and physical note Author Nima Leroy [facility] December 23, 2023 2:29pm Note Date/Time December 23, 2023 2:12pm [facility] Medical Records Department [address] [place] [id number] History & Physical Exam 12/23/23 1410 MR#: [id number] Acct: [id number] Name: FRED MON Rep #:[id number] : 1940 83 From: Nima Harper MD PCP: Dr. Alex Giang MD Status:AD M IN Location: [facility] TCU05-1 HPI - General General Date of Admission: 12/23/23 Date of Service: 12/23/23 Chief Complaint: Here for rehabilitation. HPI Narrative FRED LAURO, is a 83 Female who presents with followin12/21/2023 Admit to [facility]. 12/21/2023 Dr. Zuluaga performed left TKA. 12/22/2023 Pain controlled, reactive leukocytosis. Medically stable. 12/22/2023 Lives alone. Iron, Folic acid, per anemia protocol. Tylenol, Meloxicam, Oxycodone for pain. Aspirin 81mg bid x 4 weeks for DVT prophylaxis. PT/OT. Hemoglobin 10.6. 12/23/2023 Slightly confused yesterday, improved today. 12/23/2023 Admit to TCU with debility, here for rehabilitation, strengthening, prior to discharge home alone. On arrival, resident having chills, body aches. Mentation baseline. Discussed with daughter Camille. [facility] Medical History (Updated 12/23/23 @ 14:[address] Nima Harper MD) Ambulates with cane Arthritis High cholesterol History of echocardiogram History of edema History of stress test Hyperlipidemia Hypertension Injury of head and neck Non-smoker Post-menopausal Shortness of breath on exertion Walker as ambulation aid Wears glasses Home Medications lovastatin 40 mg tablet 40 mg PO DAILY Cholesterol 04/29/20 [History Last Taken 12/22/23 21:40] cholecalciferol (vitamin D3) 50 mcg (2,000 unit) capsule 50 mcg PO DAILY health maintenance 06/23/22 [History Last Taken 12/23/23 09:30] lisinopril 10 mg tablet 10 mg PO DAILY BP 06/23/22 [History Last Taken 12/23/23 09:30] acetaminophen 500 mg tablet 1,000 mg (2 x 500 mg) PO Q8 pain #0 tabs 12/23/23 [Rx Last Taken 12/23/23 09:30] aspirin 81 mg chewable tablet 81 mg PO BIDCM heart #0 tabs 12/23/23 [Rx Last Taken 12/23/23 09:30] famotidine 20 mg tablet 20 mg PO DAILY Acid #0 tabs 12/23/23 [Rx Last Taken 12/23/23 09:30] melatonin 3 mg tablet 3 mg PO QHS sleep #0 tabs 12/23/23 [Rx Last Taken 12/22/23 21:35] meloxicam 7.5 mg tablet 7.5 mg PO BID pain #0 tabs 12/23/23 [Rx Last Taken 12/23/23 09:30] nut.tx.comp. immune systm,reg 0.08 gram-1.4 kcal/mL oral liquid (Ensure Surgery)237 ml PO TIDCM health maintenance #0 mL 12/23/23 [Rx Last Taken 12/22/23 08:10] oxycodone 5 mg tablet 5 - 10 mg (1 - 2 x 5 mg) PO Q4H PRN PRN Pain Score 4-10 5 days #42 tabs 12/23/23 [Rx Last Taken 12/23/23 10:40] sennosides 8.6 mg-docusate sodium 50 mg tablet (Stool Softener-Stimulant Laxative) 2 tab PO BID constipation 5 days #20 tabs 12/23/23 [Rx Last Taken 12/23/23 09:30] Allergy/AdvReac Type Severity Reaction Status Date / Time No Known Allergies Allergy Verified 12/21/23 06:41 Surgical History Hx of colonoscopy Hx of left knee surgery Hx of total knee replacement Status post total left knee replacement Social History Smoking Status: Former smoker alcohol intake: never substance use type: does not use caffeine: Yes what type of physical activity do you participate in: none seatbelt use: always do you feel safe at home: Yes additional social history: ROS Constitutional Constitutional: Denies chills, fever(s) or weight gain ENT HEENT: Denies headache(s), nasal congestion or nasal discharge Cardiovascular Cardiovascular: Denies chest pain or palpitations Respiratory/Chest Respiratory/Chest: Denies cough, excessive phlegm production or shortness of breath with exertion Gastrointestinal Gastrointestinal: Denies abdominal pain, nausea or vomiting Genitourinary Genitourinary: Denies dysuria Musculoskeletal Musculoskeletal: Denies joint pain or joint swelling Integumentary Integumentary: Denies rash or wounds Neurologic Neurologic: Denies focal weakness, numbness or tingling Psychiatric Psychiatric: Denies anxiety, auditory hallucinations, depression, homicidal ideation or suicidal ideation Vital Signs Vital Signs Vital Signs: 12/23/23 13:12 Temperature 98.8 F Temperature Source Temporal Pulse Rate 69 Respiratory Rate 18 Blood Pressure 180/77 H Blood Pressure Mean 111 Blood Pressure Source Monitor Blood Pressure Position Semi-Fowlers Blood Pressure Location Right Arm Pulse Ox 95 Oxygen Delivery Method Room Air Weight Weight: 86.455 kg Body Mass Index (BMI) 31.7 Physical Exam Const alert General Appearance: cooperative HEENT normocephalic Eyes PERRL and EOMs intact bilaterally Neck supple, no JVD and no carotid bruits Resp normal respiratory effort, normal air movement and clear to auscultation bilaterally Cardio regular rate and regular rhythm GI normal to inspection, nondistended, normoactive bowel sounds, non-tender and non-distended Extremity normal capillary refill Extremity Narrative: Left incision warm to touch. General Extremity: edema left Skin no rashes or lesions noted General Skin Exam: no breakdown Psych affect normal Appearance: appropriate Results Lab / Micro Data 12/23/23 14:00 12/23/23 14:00 Assessment & Plan Assessment/Plan (1) Debility: (2) Status post total left knee replacement: (3) Postoperative anemia: (4) Cellulitis of left knee: (5) Edema of left lower extremity: (6) Acute encephalopathy: (7) Hypertension: (8) Hyperlipidemia: (9) Carotid artery stenosis: (10) Osteopenia: PLAN: Plan 82 year old female with below past medical history hospitalized for left TKA 12/21/[address] Zuluaga, postoperative course complicated by encephalopathy, anemia, admitted to TCU with debility, here for rehabilitation, strengthening, prior to discharge home alone. * Debility - PT/OT. * Pain - Tylenol 1000mg q8, Meloxicam 7.5mg bidcm, Oxycodone 5-10mg q4 prn * Bowel - senna/colace 2 tablets bid, Magnesium citrate 300ml daily prn. * Adult immunization - Administer pneumonia vaccine, covid vaccine, flu vaccine as appropriate. * DVT prophylaxis - Aspirin 81mg bidcm thru 01/18/2024. * Acute encephalopathy - cbcd, bmp, ua, c+s, covid-19, respiratory panel, CXR, KUB. * Hyperlipidemia - Atorvastatin 10mg qhs. * Cellulitis left knee - Keflex 500mg q12 thru 12/30/2023, Doxycycline 100mg bid thru 12/30/2023. * Left lower extremity edema - Doppler ultrasound left lower extremity. * Vitamin D deficiency - D3 25mcg daily. * Nutrition - Ensure Surgery 237ml tidcm. * GERD - Famotidine 20mg daily. * Hypertension - Lisinopril 10mg daily, blood pressure 180 systolic, Hydralazine 25mg po x 1 dose given. * Insomnia - Melatonin 3mg qhs. 12/23/23 1429 <Electronically signed by Nima Harper MD> Cosigner Signature (if applicable): CC: Dr. Alex Giang MD; Dr. Nima Harper MD~ Signed [facility] Work Phone: [phone] Progress note Author [facility] December 22, 2023 10:49am Note Date/Time December 22, 2023 10:49am [facility] Medical Records Department [address] [place] [address] Progress Note - Orthopedic 12/22/23 1044 MR#: [id number] Acct: [id number] Name: FRED MON Rep #:[id number] : 1940 83 From: Michael CANTOR PA-C PCP: Dr. Alex Giang MD Status:AD M IN Location: [place] [address]-1 Subjective Subjective The patient was sitting in bed upon examination. Patient denies any chest pain,shortness of breath, dizziness, lightheadedness, nausea or vomiting, or calf pain. Pain is controlled on medications. No adverse overnight events. Patientlives home alone and will have no assistance postoperatively upon discharge. She had a risk assessment and prediction tool score of 2/12. She is working with physical therapy today. Patient did start on anemia protocol preoperatively due to anemia. She has been taken ferrous sulfate and folic acid. Nursing states she did have to switch out the distal pin site dressing due to drainage. Objective Data Objective Data Vital Signs: Vital Signs Temp Pulse Resp BP Pulse Ox O2 Del Method O2 Flow Rate 98 F 65 18 151/86 H 97 Room Air 2 12/22/23 08:20 12/22/23 08:20 12/22/23 08:20 12/22/23 08:20 12/22/23 08:20 12/22/23 08:20 12/21/23 12:46 Oxygen Flow Rate (L/min) 2 Oxygen Delivery Method Room Air Weight: 87 kg Body Mass Index (BMI) 31.8 Intake & Output: Intake and Output for Last 24 Hours 12/20/23 12/21/23 12/22/23 23:59 23:59 23:59 Intake Total 3732 / 3732 50 / 50 Balance 3732 / 3732 50 / 50 Lab / Micro Data 12/22/23 06:34 12/22/23 06:34 Labs: Laboratory Results - last 24 hr 12/22/23 06:34: WBC 14.2 H, RBC 3.71 L, Hgb 10.6 L, Hct 33.2 L, MCV 89.5, MCH 28.6, MCHC 31.9 L, RDW Std Deviation 45.9 H, RDW Coeff of Rachel 14.3, Plt Count 190, MPV 11.1, Sodium 141, Potassium 4.3, Chloride 110 H, Carbon Dioxide 23.0, Anion Gap 8, BUN 16, Creatinine 0.73, Estim Creat Clear Calc 58.04, Est GFR (MDRD) Af Amer 98, Est GFR (MDRD) Non-Af 81, BUN/Creatinine Ratio 21.9 H, Glucose 118 H, Calcium 9.6 Micro: Microbiology 12/08/23 14:57 Swab (Method) Nasal Screen MRSA/MSSA - Final Radiography Diagnostic Testing: Radiology Impression Knee X-Ray 12/21/23 10:52 IMPRESSION: Status post total knee replacement. There is good alignment. Postoperative soft tissue changes. Electronically Signed: Fady Ryder MD at 11:08 EST , Physical Exam Narrative Vital signs stable and afebrile. SCDs and TESFAYE hose are in place bilaterally Patient is able to plantarflex and dorsiflex actively. Sensation is intact to light touch to saphenous, sural, superficial and deep peroneal, and tibial distribution. Dressings are clean dry and intact. Negative Homans bilaterally, negative signs and symptoms of DVT. Assessment & Plan Assessment/Plan (1) Status post total left knee replacement: PLAN: 1. S/P left total knee arthroplasty POD #1 2. Continue Pain Medications: Tylenol, meloxicam, oxycodone. Do not take any other nonsteroidal anti-inflammatories while using meloxicam/Mobic. 3. DVT Prophylaxis: Take 81 mg aspirin twice daily for 4 weeks postoperatively for DVT prophylaxis. Patient denies past history of DVT or pulmonary embolism 4. PT/OT: Weightbearing as tolerated with walker. Appreciate recommendations from physical therapy for discharge planning 5. H & H: 10.6/33.2, asymptomatic. Since patient's last surgery in the fall 2022 she has been dealing with some anemia. She has been following [facility] Zuluaga protocol for anemia in which she is using ferrous sulfate and folic acid. Preoperative hemoglobin/hematocrit was 11.3/35.8 on December 08, 2023. We will continue to monitor with repeat lab work tomorrow. Patient is currently asymptomatic on clinical exam. 6. Continue postoperative medical management per medicine 7. Reactive leukocytosis: 14.2, Afebrile. Patient did receive Decadron intraoperatively. No clinical signs of infection. 8. Encouraged Incentive Spirometry 9. Disposition: Case management is currently involved as there is concern with patient going home for safety reasons. She had a risk assessment and predictiontool score of 2/12. She also lives home alone. We appreciate recommendations from physical therapy for discharge planning. We will continue to monitor patient's anemia with repeat lab work tomorrow. She will continue with above medications. I have reviewed the [place] Automated Rx Reporting System (OARRS) report for this patient for refill pattern and other prescriber involvement as part of the appropriate surveillance for the provision of acute and chronic controlled medications. The report was requested and reviewed on the date of this entry and was considered in the prescribing process. This dictation was created using voice recognition software. Phonetic and/or grammatical errors may exist. 12/22/23 1049 <Electronically signed by Michael CANTOR PA-C> Cosigner Signature (if applicable): CC: ~ Signed [facility] Work Phone: 1(251) 489-358002-15-2024 Progress note Author Stefano Avina [facility] December 22, 2023 10:10am Note Date/Time December 22, 2023 10:10am [facility] Medical Records Department [facility] [place] [address] Progress Note - Hospitalist 12/22/23 1008 MR#: [id number] Acct: [id number] Name: FRED MON Rep #:[id number] : 1940 83 From: Stefano mueller MD PCP: Dr. Alex Giang MD Status:AD M IN Location: MS3 IA632-1 Subjective Subjective No issues, pain is controlled. Slight leukocytosis likely reactive. Renal function is stable Objective Data Objective Data Vital Signs: Vital Signs Temp Pulse Resp BP Pulse Ox O2 Del Method O2 Flow Rate 98 F 65 18 151/86 H 97 Room Air 2 12/22/23 08:20 12/22/23 08:20 12/22/23 08:20 12/22/23 08:20 12/22/23 08:20 12/22/23 08:20 12/21/23 12:46 Oxygen Flow Rate (L/min) 2 Oxygen Delivery Method Room Air Weight: 191 lb 12.835 oz Body Mass Index (BMI) 31.8 Intake & Output: Intake and Output for Last 24 Hours 12/21/23 12/22/23 12/23/23 03:59 03:59 03:59 Intake Total 3782 / 3782 Balance 3782 / 3782 Lab / Micro Data 12/22/23 06:34 12/22/23 06:34 Labs: Laboratory Results - last 24 hr 12/22/23 06:34: WBC 14.2 H, RBC 3.71 L, Hgb 10.6 L, Hct 33.2 L, MCV 89.5, MCH 28.6, MCHC 31.9 L, RDW Std Deviation 45.9 H, RDW Coeff of Rachel 14.3, Plt Count 190, MPV 11.1, Sodium 141, Potassium 4.3, Chloride 110 H, Carbon Dioxide 23.0, Anion Gap 8, BUN 16, Creatinine 0.73, Estim Creat Clear Calc 58.04, Est GFR (MDRD) Af Amer 98, Est GFR (MDRD) Non-Af 81, BUN/Creatinine Ratio 21.9 H, Glucose 118 H, Calcium 9.6 Micro: Microbiology 12/08/23 14:57 Swab (Method) Nasal Screen MRSA/MSSA - Final Radiography Diagnostic Testing: Radiology Impression Knee X-Ray 12/21/23 10:52 IMPRESSION: Status post total knee replacement. There is good alignment. Postoperative soft tissue changes. Electronically Signed: Fady Ryder MD at 11:08 EST , Physical Exam Narrative General: Alert, Oriented x3, Cooperative, No apparent distress HEENT: Atraumatic, PERRLA, EOMI, Normocephalic Oral: Moist Mucosa Neck: Supple, No JVD Lungs: Diminished, Normal air movement, No rhonchi, No wheeze, No rales Cardiovascular: Regular rate, Regular Rhythm, Normal S1, Normal S2, No murmurs Abdomen: Soft, Non Tender, Non-Distended, No Hepato-splenomegaly Extremities: No edema, Capillary Refill Less than 3 Seconds Skin: Dressing CDI Musculoskeletal: Surgical site tenderness Neurological: No focal neurological deficits, Motor Exam 5/5 strength throughout, Sensory exam intact to light touch and pain Psych/Mental Status: Normal Affect, Appropriate Assessment & Plan Assessment/Plan (1) Status post total left knee replacement: PLAN: Plan 1. Status post left total knee replacement for osteoarthritis ? PT/OT ? Pain management from primary ? Medically stable for discharge ? Continue with her home medications 2. HTN/HLD ? Blood pressures are stable ? Renal function is stable ? Resume her home blood pressure medications and her cholesterol medications Will follow peripherally Charges/Coding Visit Charges Inpatient E&M: 78959 Subs Hosp L2 12/22/23 1010 <Electronically signed by Stefano Avina MD> Cosigner Signature (if applicable): CC: ~ Signed [facility] Work Phone: 1(482) 539-793502-14-2024 Procedure [facility] 12-21-2023 History and physical note Author Jose Ramon Zuluaga [facility] December 21, 2023 7:02am Note Date/Time December 15, 2023 2 :48pm [facility] Medical Records Department [address] [place] [address] History & Physical Exam 12/15/23 1447 MR#: [id number] Acct: [id number] Name: FRED MON [facility] Rep #:[id number] : 1940 83 From: Michael CANTOR PA-C PCP: Dr. Alex Giang MD Status:[facility] Location: [place] [address] History and Physical History and Physical? Patient Name: Fred Mon : 1940 From:? MICHAEL JOEL PA-C? DATE OF PRE-OPERATIVE EXAM: 12/14/2023 DATE OF SURGERY:? 12/21/2023 SCHEDULED PROCEDURE:? Left total knee arthroplasty HISTORY OF PRESENT ILLNESS: Preoperative history and physical exam was performed on December 14, 2023.? This is an 83-year-old female who has been having ongoing pain with bilateral knees.?She previously underwent a right total knee arthroplasty by Dr. Jose Ramon Zuluaga onSeptember 20, 2023.? She is doing well from that procedure.? Patient has continued to have constant pain with her left knee.? Pain is increased with going up and down stairs, sitting and walking.? She feels stiffness in the knee and achiness.? She has pain over the medial aspect of the knee.? She has difficulty with activities of daily living including bathing/showering, getting dressed, and shopping due to the knee pain.? She has attempted previous corticosteroid injections and Visco supplementation injections with minimal relief.? She has been taking diclofenac for a long period of time and Tylenol.? She denies past history of surgery on her left knee.? She uses a walker for ambulatory assistance.? She has been through past physical therapy without relief.? After failing conservative measures and discussing all treatment options with Dr. Jose Ramon Zuluaga, the patient does wish to proceed with a left total knee arthroplasty.? Patient does have medical history pertinent for hypertension and hypercholesterolemia.? She states after this surgery she will have no one to assist her at home and there are concerns with her safety.? Patient has a risk assessment and prediction tool score of 2/12 which puts her at a high predictive score for extended inpatient rehabilitation upon discharge.? Patient denies past history of DVT or pulmonary embolism.? Denies any recent chest pain, shortness of breath, fevers chills or recent infections.?There is been no change in medical history.? [facility]?? REVIEW OF SYSTEMS: Review Of Systems: Constitutional: Reports weight change, but denies anorexia, anxiety, change in appetite and fever,hard of hearing, and vision problems. Cardiovasular: Denies chest pain, heart murmur, irregular heartbeat and peripheral vascular disease. Respiratory: Denies asthma, cough, pneumonia, sleep apnea, shortness of breath, tuberculosis and wheezing. Gastrointestinal: Denies constipation, diarrhea, heartburn, nausea, bloody stools and vomiting, and difficulty swallowing. Genitourinary: Reports more than 3 months without a period Denies incontinence. Musculoskeletal: Reports trouble walking, but denies leg swelling and weakness and limp. Skin: Denies Raynaud's, history of shingles and tattoo. Neurological: Denies ambulatory dysfunction, dizziness, numbness/tingling and tremor. Psychiatric: Denies anxiety, depression, insomnia, mental illness and stress. Hematologic/Lymphatic: Denies anemia, bleeding/bruising tendency and past transfusion. Reviewed, no changes. PAST MEDICAL HISTORY: Advance Care Plan: Other Directive, POA Effective Date: 10/17/2015 Other Directive, LIVING WILL Effective Date: 10/17/2015 Past Medical History: Medical Problems: Hypercholesterolemia, High Blood Pressure, carotid artery stenosis, osteopenia Accidents: Knee Problems Surgical Hx: Arthroscopy - (09/13/2006) LT KNEE, DR. CASTILLO, [facility] Knee Replacement RT - (09/20/2023) ROBOTIC ASSISTED RT TKR AND INJECTION LEFT KNEE DR. ZULUAGA AT [facility] Anesthesia Complications: None Assistive Devices: Glasses, Cane Reviewed and updated. 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 Personal Habits:? Cigarette Use: Former.Smokeless Tobacco: Never Used Smokeless Tobacco.E-Cigarette Use: Never used.Alcohol: Occasionally.Drug Use: Denies Use.Enjoy Exercising: Exercises 1-3 X/Week. Reviewed and updated. VITALS: Ht: 64 Wt: 193lb Wt k.545 BMI: 33.1 BP: 126/80 Pulse: 61 Resp: 16 T: 97.9 T: 36.6C Pain Level: 5 O2SatR: 99 ALLERGIES: No Known Drug Allergy? MEDICATIONS: Folic Acid 1 mg 1 by mouth every day, Iron (Ferrous Sulfate) 325 (65 Fe) MG one by mouth twice? per day, Lisinopril 10 mg 2 by mouth every day, Lovastatin 40 mg1 by mouth every day, Vitamin D3 2000 Unit 1po qday, Vitamin E 180 MG (400 Unit)one cap po once daily, Tylenol 8 Hour Arthritis Pain 650 mg 2 tablets 4x/day, Diclofenac Potassium 50 mg take 1 tablet by mouth every 8 to 12 hours as needed for pain PRE-OP EXAM:? General appearance:NORMAL? ? ? Other: Eyes: Conjunctivae and lids: NORMAL? Pupils: ERR Ears, Nose, Mouth, and Throat: NORMAL? Other: Inspection of lips, teeth and gums: NORMAL? ?Other: Neck: Examination of neck: no masses noted. Respiratory: Assessment of respiratory effort: NORMAL? ?Other: ?Auscultation of lungs: clear to auscultation no wheezes, rhonchi or rales. Cardiovascular:? Auscultation of heart: regular rate and rhythm, positive systolic murmur PHYSICAL EXAMINATION: Patient does walk with an antalgic gait.? She is currently using a walker.? The left knee is without erythema or signs of infection.? She has mild effusion.? She has varus alignment which is correctable on exam.? Tenderness to palpation along the medial joint line.? Range of motion: Lacks 40 full extension to 118 flexion.? Stable to varus/valgus stress test, stable to anterior/posterior drawer exam with firm endpoint.? Sensation intact to light touch. 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 IMPRESSION: 1.? Severe left knee osteoarthritis with varus alignment 2.? Presence of right total knee arthroplasty September 2023 3.? Hypertension 4.? Hypercholesterolemia 5.? Obesity with BMI 33.1 PLAN: Dr. Jose Ramon Zuluaga did discuss and review with the patient all treatment options including surgical versus nonsurgical options.? Patient does wish to proceed with the above-stated procedure.? Potential risks, benefits, and complications of the procedure were discussed in detail including but not limited to , infection, nerve and blood vessel damage, persistent pain, numbness, tingling, paresthesias, blood clot, pulmonary embolism, and requirement for possible further surgery.? The patient expressed full understanding and has no further questions for the doctor.? Patient does agree to proceed with the above-stated procedure and has signed the surgery consent form. POST-OP MEDICATION PLAN: Pain Medications:? Postoperative pain regimen will be initiated by Dr. Jose Ramon Zuluaga at the hospital.? Patient was started on our anemia protocol in which sheis currently taking ferrous sulfate and folic acid. Risk assessment and prediction tool (RAPT) score = 2/ DVT Prophylaxis:? Aspirin 81 mg twice daily for 4 weeks postoperatively.? Deniespast history of DVT or pulmonary embolism This dictation was created using voice recognition software. Phonetic and/or grammatical errors may exist. ___? I have re-examined the patient.? There are no clinical changes since date of exam. ___? See progress notes for changes. ___? Dictated on admission Date: ? ? ?Time: Signature: 12/15/23 1448 <Electronically signed by Michael CANTOR PA-C> Cosigner Signature (if applicable): CC: CINTIA Joel; Dr. Alex Giang MD; Dr. Jose Ramon Zuluaga MD~ Signed ADDENDUM by Dr. Jose Ramon Zuluaga MD on 12/21/23 at 0702 Addendum I have examined the patient and the H&P has been reviewed. There are no clinicalchanges since date of exam. 12/21/23 0702<Electronically signed by Jose Ramon Zuluaga MD> Cosigner Signature (if applicable): cc: CINTIA Joel; Dr. Alex Giang MD; Dr. Jose Ramon Zuluaga MD ~* Signed [facility] Work Phone: 1(114) 412-848511-15-2023 Hospital Discharge instructions Patient Education 09/21/2023 13:06:09 Total Knee Replacement, Care After, Emic-rc-Aiuc Total Knee Replacement, Care After This sheet [...] Follow these instructions at home: Medicines Take lzct-ily-keuceho and prescription medicines only as told by [...] keep your pee (urine) pale yellow. ?Take sliz-jcx-tefhvut or prescription medicines. ?Eat foods that are [...] cannot use soap and water, use hand pricing analyst. ?Change your bandage as told by your [...] contain nicotine or tobacco, such as cigarettes, e- cigarettes, and chewing tobacco. These can delay healing. [...] 01/15/2013 Document Revised: 03/03/2020 Document Reviewed: 06/07/2019 [employer] Patient Education 2020 [employer] 09/21/2023 06:56:19 5 - [facility] Post-op Instruction 06/2017 (81962) [facility] Post-operative Instructions PLEASE FOLLOW [facility] POST-OP INSTRUCTIONS GIVEN WATCH FOR SIGNS OF INFECTION: call the office ([phone]) if experencing any of the following: (Usually [...] on your follow up instructions. Form: 338A (72741) R: 03/13 Follow Up Care 07/26/2023 08:02:18 With:[facility] Address: [address] [place] [phone] When:09/23/2023 13:00:00 Comments:This is your first physical therapy appointment. Follow-up as scheduled. With:MICHAEL JOEL PA-C, Orthopedic Address: [facility] [address] [address]- When:10/03/2023 13:30:00 Comments:This is your post-op appointment. Follow-up as scheduled. [facility] 11-15-2023 Note Discharge Instructions Thank you for allowing [facility] to assist you with your healthcare needs. The following is importantdischarge information regarding your hospital visit. Your Care Team Jose Ramon Zuluaga MD Your Diagnosis Cognitive impairment HTN (hypertension) Osteoarthritis S/P knee replacement Status post total right knee replacement What to do next Follow Up Appointments Follow Up with MICHAEL JOEL PA-C, Orthopedic When 10/03/2023 01:30 PM EST Why: This is your post-op appointment. Follow-up as scheduled. Where: [facility] [address] [place] [phone] Follow Up with [facility] When 09/23/2023 01:00 PM EST Why: This is your first physical therapy appointment. Follow-up as scheduled. Where: [address] [place] [phone] The Following Treatments Have Been Ordered for [...] and or supplements as they may interact withyour home medications. What How Much When Why Instructions Last Dose New aspirin (Aspirin Low Dose 81 mg oral tablet) 1 tab(s) by mouth Two (2) times a day Duration: 30 Days Take 81 mg aspirin twice daily with food for 4 weeks postoperatively for DVT prophylaxis. Pickup at [facility] #[id number] New docusate-senna (Senokot S 50 mg-8.6 mg oral tablet) 2 tab(s) by mouth Two (2) times a day Duration: 3 Days Take until first bowel movement, then as needed Pickup at [facility] #[id number] New famotidine (Pepcid 20 mg oral tablet) 1 tab(s) by mouth Once a day Pickup at [facility] #[id number] New oxyCODONE (oxyCODONE 5 mg oral tablet ( IMMEDIATE release )) See instructions Status post total right knee replacement 1-2 tab(s) Oral q4h Pickup at [facility] #[id number] Changed acetaminophen (Tylenol) 1,000 Milligram by mouth [...] by mouth Once a day Pharmacy Information [facility] #[id number]: [address] [place], [place] [phone] Please take this list to your next [...] Plus, Senna S, Senna-Time S, Senokot S, SenoSol- SS, Stool Softener + Stimulant Laxative, Stool Softener [...] bedtime. Docusate and senna should cause you tohave a bowel movement within 6 to 12 [...] laxative or other stool softener that may containingredients similar to docusate or senna. What are [...] may report side effects to FDA at 7-021-VWU-6982. What other drugs will affect docusate and senna? Other drugs may affect docusate and senna, including prescription and orrr-oaa-tngydmo medicines, vitamins, and herbal products. Tell your doctor about all your current medicines and any medicine youstart or stop using. Where can I get more information? Your pharmacist can provide more information about docusate and senna. Remember, keep this and all other medicines out of the reach of children, never share your medicines with others, and use this medication only for the indication prescribed. Every effort has been made to ensure that the information provided by [employer]. ('[employer]') is accurate, up-to-date, and complete, but no guarantee is made to that effect. Drug information contained herein may be time sensitive. [employer] information has been compiled for use by healthcare practitioners and consumers in the [place] and therefore [employer] does not warrant that uses outside of the [place] are appropriate, unless specifically indicated otherwise. [employer] drug information does not endorse drugs, diagnose patients or recommend therapy. [employer] drug information isan informational resource designed to assist licensed healthcare practitioners in caring for their p atients and/or to serve consumers viewing this service as a supplement to, and not a substitute for, the expertise, skill, knowledge and judgment of healthcare practitioners. The absence of a warningfor a given drug or drug combination in no way should be construed to indicate that the drug or drug combination is safe, effective or appropriate for any given patient. [employer] does not assume any responsibility for any aspect of healthcare administered with the aid of information [facility] provides. The information contained herein is not intended to cover all possible uses, directions, precautions, warnings, drug interactions, allergic reactions, or adverse effects. If you have questions about the drugs you are taking, check with your doctor, nurse or pharmacist. Copyright 9434-4517 [facility] Hospital[facility]. Version: 5.01. Revision Date: 06/13/2023. oxycodone (ox [...] The extended-release form of oxycodone is for ayxfrq-bod-zngew treatment of pain and should not be [...] people under 18. OxyContin should not be givento a child younger than 11 years old. [...] someone with a history of drug abuse oraddiction. MISUSE CAN CAUSE ADDICTION, OVERDOSE, OR . Keep the medication in a place where others cannot get to it. Selling or giving away opioid medicine is against the law. Stop taking all other fmxety-nwk-obdho opioid pain medicines when you start taking extended-releaseoxycodone. Take oxycodone with food. Swallow the capsule or tablet whole to avoid exposure to a potentially fatal overdose. Do not crush, chew, break, open, or dissolve. If you cannot swallow a capsule whole, open it and sprinkle the medicine into a spoonful of puddingor applesauce. Swallow the mixture right away without [...] suddenly. Follow your doctor's instructions about tapering yourdose. Store at room temperature, away from heat, [...] where to locate a drug take-back disposal program.If there is no take-back program, flush the [...] Poison Help line at . An opioid overdosecan be fatal, especially in a child or [...] health department. Make sure any person caring foryou knows where you keep naloxone and how [...] if you have slow breathing with long pauses,blue colored lips, or if you are hard [...] may report side effects to FDA at 7-924-HGG-2645. What other drugs will affect oxycodone? You [...] drugs may affect oxycodone. This includes prescription wxzmgtk-naz-hhsrdax medicines, vitamins, and herbal products. Not all [...] to ensure that the information provided by [employer]. [employer]') is accurate, up-to-date, and complete, but no guarantee is made to that effect. Drug information contained herein may be time sensitive. [employer] information has been compiled for use by healthcare practitioners and consumers in the [place] and therefore [employer] does not warrant that uses outside of the [place] are appropriate, unless specifically indicated otherwise. [employer]'s drug information does not endorse drugs, diagnose patients or recommend therapy. [employer] drug information isan informational resource designed to assist licensed healthcare practitioners in caring for their p atients and/or to serve consumers viewing this service as a supplement to, and not a substitute for, the expertise, skill, knowledge and judgment of healthcare practitioners. The absence of a warningfor a given drug or drug combination in no way should be construed to indicate that the drug or drug combination is safe, effective or appropriate for any given patient. [facility] does not assume any responsibility for any aspect of healthcare administered with the aid of information [facility] provides. The information contained herein is not intended to cover all possible uses, directions, precautions, warnings, drug interactions, allergic reactions, or adverse effects. If you have questions about the drugs you are taking, check with your doctor, nurse or pharmacist. Copyright 7885-4944 [facility] Network[facility]. Version: 16.. Revision Date: 06/10/2023. acetaminophen (oral) [...] Help line at . An overdose can befatal. Overdose symptoms include vomiting, stomach pain, and [...] may report side effects to FDA at 1-877-UPW-9796. What other drugs will affect acetaminophen? Other drugs may affect acetaminophen, including prescription and ejmu-dny-reqvlay medicines, vitamins, and herbal products. Tell your [...] to ensure that the information provided by [employer]. ('[employer]') is accurate, up-to-date, and complete, but no guarantee is made to that effect. Drug information contained herein may be time sensitive. [employer] information has been compiled for use by healthcare practitioners and consumers in the [place] and therefore [employer] does not warrant that uses outside of the [place] are appropriate, unless specifically indicated otherwise. [employer] drug information does not endorse drugs, diagnose patients or recommend therapy. [employer] drug information isan informational resource designed to assist licensed healthcare practitioners in caring for their p atients and/or to serve consumers viewing this service as a supplement to, and not a substitute for, the expertise, skill, knowledge and judgment of healthcare practitioners. The absence of a warningfor a given drug or drug combination in no way should be construed to indicate that the drug or drug combination is safe, effective or appropriate for any given patient. [employer] does not assume any responsibility for any aspect of healthcare administered with the aid of information [employer] provides. The information contained herein is not intended to cover all possible uses, directions, precautions, warnings, drug interactions, allergic reactions, or adverse effects. If you have questions about the drugs you are taking, check with your doctor, nurse or pharmacist. Copyright 8123-1276 [employer]. Version: 25.. Revision Date: 06/06/2023. aspirin (oral) ( pir in) Aspi-Cor, Lore Plus, Durlaza, Ecotrin, Miniprin, Vazalore What is the most important information I should know about aspirin? Aspirin can cause Kimberly's syndrome, a serious and sometimes fatal condition in children. What is aspirin? Aspirin is a salicylate (by-CMM-ix-ate) that is used to treat pain, and [...] may report side effects to FDA at 9-811-MOQ-6706. What other drugs will affect aspirin? Ask [...] drugs may affect aspirin, including prescription and teza-yfz-xkcuebx medicines, vitamins, and herbal products. Not all [...] to ensure that the information provided by [employer]. [employer]') is accurate, up-to-date, and complete, but no guarantee is made to that effect. Drug information contained herein may be time sensitive. [employer] information has been compiled for use by healthcare practitioners and consumers in the [place] and therefore [employer] does not warrant that uses outside of the [place] are appropriate, unless specifically indicated otherwise. [employer] drug information does not endorse drugs, diagnose patients or recommend therapy. [employer] drug information isan informational resource designed to assist licensed healthcare practitioners in caring for their p atients and/or to serve consumers viewing this service as a supplement to, and not a substitute for, the expertise, skill, knowledge and judgment of healthcare practitioners. The absence of a warningfor a given drug or drug combination in no way should be construed to indicate that the drug or drug combination is safe, effective or appropriate for any given patient. [employer] does not assume any responsibility for any aspect of healthcare administered with the aid of information [employer] provides. The information contained herein is not intended to cover all possible uses, directions, precautions, warnings, drug interactions, allergic reactions, or adverse effects. If you have questions about the drugs you are taking, check with your doctor, nurse or pharmacist. Copyright 0924-8115 [employer]. Version: 18.. Revision Date: 05/30/2023. famotidine (oral/injection) [...] may report side effects to FDA at [phone]. What other drugs will affect famotidine? Famotidine oral can make it harder for your body to absorb other medicines you take by mouth. Tell your doctor if you are taking: cefditoren; dasatinib; delavirdine; fosamprenavir; or tizanidine (if you are taking famotidine liquid). This list is not complete. Other drugs may affect famotidine, including prescription and okek-zht-thupunl medicines, vitamins, and herbal products. Not all [...] to ensure that the information provided by [employer]. ('[employer]') is accurate, up-to-date, and complete, but no guarantee is made to that effect. Drug information contained herein may be time sensitive. [employer] information has been compiled for use by healthcare practitioners and consumers in the [place] and therefore [employer] does not warrant that uses outside of the [place] are appropriate, unless specifically indicated otherwise. [employer] drug information does not endorse drugs, diagnose patients or recommend therapy. [employer] drug information isan informational resource designed to assist licensed healthcare practitioners in caring for their p atients and/or to serve consumers viewing this service as a supplement to, and not a substitute for, the expertise, skill, knowledge and judgment of healthcare practitioners. The absence of a warningfor a given drug or drug combination in no way should be construed to indicate that the drug or drug combination is safe, effective or appropriate for any given patient. [employer] does not assume any responsibility for any aspect of healthcare administered with the aid of information [employer] provides. The information contained herein is not intended to cover all possible uses, directions, precautions, warnings, drug interactions, allergic reactions, or adverse effects. If you have questions about the drugs you are taking, check with your doctor, nurse or pharmacist. Copyright 6183-5629 [employer]. Version: .. Revision Date: 05/30/2023. Education Materials [...] Follow these instructions at home: Medicines Take uwfl-rog-zmzkurz and prescription medicines only as told by [...] your pee (urine) pale yellow. ? Take syqp-dfl-kqqnjtv or prescription medicines. ? Eat foods that [...] cannot use soap and water, use hand pricing analyst. ? Change your bandage as told by your doctor. ? Leave stitches (sutures), skin glue, or skin tape (adhesive) strips in bruna (more content not included)... [facility]11-15-2023 Note Date of Service September 21, 2023 [...] (Oral) HR: 52(Apical) RR: 16 BP: 143/60 SpO2:95% HT: 165.1 cm WT: 87.9 kg BMI: [...] does have outpatient physical therapy established at [facility]. She will follow-up per postoperative instructions. Patient would like her prescriptions E scribed to [facility] in [facility]. Upon discharge she will contact her office with any concerns or questions. I have reviewed the [place] Automated Rx Reporting System (OARRS) report for this patient for refill pattern and other prescriber involvement as part of the appropriate surveillance for the provision ofacute and chronic controlled medications. The report was requested and reviewed on the date of thisentry, and was considered in the prescribing process This dictation was created using voice recognition software. Phonetic and/or grammatical errors mayexist. Digitally Signed by MICHAEL JOEL PA-C on 09/21/2023 06:56 AM [facility]11-15-2023 Note Date of Service September 21, 2023 [...] (Oral) HR: 52(Apical) RR: 16 BP: 143/60 SpO2:95% HT: 165.1 cm WT: 87.9 kg BMI: [...] does have outpatient physical therapy established at [facility] [place]. She will follow-up per postoperative instructions. Patient would like her prescriptions E scribed to [facility] in [facility]. Upon discharge she will contact her office with any concerns or questions. I have reviewed the [place] Automated Rx Reporting System (OARRS) report for this patient for refill pattern and other prescriber involvement as part of the appropriate surveillance for the provision ofacute and chronic controlled medications. The report was requested and reviewed on the date of thisentry, and was considered in the prescribing process This dictation was created using voice recognition software. Phonetic and/or grammatical errors mayexist. Digitally Signed by MICHAEL JOEL PA-C on 09/21/2023 06:56 AM [facility]11-14-2023 Note ORIGINAL EXAMINATION: TWO XRAY VIEWS OF [...] Sign Date: 09/20/2023 1:06:13 PM Ordering Provider: JOSE RAMON [facility]11-14-2023 Anesthesiology Consult note Patient: FRED MON Age: 82 years Sex: Female : 1940 Associated Diagnoses: None Author: LAM DAVILA APRN-INTERACTIVE ACCOUNT MANAGER Preoperative Information Anesthesia history Patient's history: negative. [...] 2.5 mg 25 mg 5 mL, Other, [facility] ropivacaine 25 mg + ketorolac 15 mg + epinephrine 0.3 mg + morphine 2.5 mg 25 mg 5 mL, Other, [facility] tranexamic acid PMX 1 gram(s) 100 mL, [...] or recorded. Procedure history: Arthroscopy of knee ([id number]). Comments: 09/20/2023 8:59 EST - Montse Austin RN LEFT Social History Social & Psychosocial [...] Height 165.1 cm Admission Weight 87.9 kg [place] Body Weight 57.00 kg Admission Body Mass [...] Designated Person #1 We May Share PHI CAMILLE DEL VALLE [phone] Designated Person #1 Relationship Daughter Designated Person #2 We May Share PHI RIC TRUJILLO [phone] Designated Person #2 Relationship Daughter Privacy Restrictions [...] No Advanced Directives Yes Advance Directive Type [place] Durable Power of Casting Machine Operator Helper for [place], [place] Declaration (Living Will) Advance Directive Location [...] after midnight, No makeup, No jewelry, Responsible Alliance Party, Aware of surgery location, Pre-op education done, 1 bottle CHG wash with instructions given, No ordered medications, Total Joint Replacement/Colorectal Book Given, SSI prevention handout given, Anesthesia block education provided SN - Preprocedure Comments Spoke with patient, Verbalizes/Nonverbally indicates understanding Anesthesia Evaluation Date/Time 08/26/2023 12:43 Anesthesia Evaluation Performed By LAM DAVILA APRN-INTERACTIVE ACCOUNT MANAGER Anesthesia Evaluation Result Approved Individuals Taught Patient, Daughter Barriers to Learning None evident Teaching Method Explanation Preferred Spoken Language Polish Preferred Written Language Polish Total Joint Book Given Yes Pre Procedure/Surgery [...] Height 165.1 cm Admission Weight 87.9 kg [place] Body Weight 57.00 kg Admission Body Mass [...] no difficulties Skin Temperature Warm Skin Description [place], Dry Skin Integrity Intact Neurological Symptoms Patient [...] Upper/Half-Length side-rails up . Assessment and Plan [place] Society of Anesthesiologists (ASA) physical status classification: Class III. Anesthetic Preoperative Plan Anesthetic technique: Spinal. Regional: Spinal. Postoperative pain management: adductor canal block. Risks discussed: nausea, vomiting, headache, hypotension, allergic reaction, serious complications. Informed consent: signed by patient. Digitally Signed by LAM DAVILA on 09/20/2023 10:24 AM [facility]11-07-2023 Discharge summary Author Fredis Quinones [facility] September 13, 2023 5:15pm Note Date/Time September 13, 2023 5 :15pm [facility] Physical Therapy [facility] [address] [place] [address] / REHABILITATION SERVICES DISCHARGE SUMMARY MR#: [id number] Acct: [id number] Name: FRED MON Rep #: [id number] : 1940 82 From: Fredis Quinones DPT, GERRY, CSCS Referring Dr.: Dr. Alex Giang MD Status: REG R Insurance: [facility] SELF PAY INSURANCE Patient Information Patient Information: FRED MON was seen in my office for initial evaluation on 07/18/23. The following Plan of Care was established for this patient: POC Established Initial Frequency: 1-2x /Week Initial Duration: 2-4 Weeks Anticipated Interventions Patient/Client Instruction: Educate patient on: Condition and Plan of Care For the Purpose of:: To increase tolerance to activity/condition/position Therapeutic Exercise to Include: Balance training For the Purpose of:: To increase tolerance to activity/condition/position Last Seen Last Seen: This patient was last seen in our office 07/18/23. Pertinent comments regardingtheir Physical therapy will appear below: Pt seen one visit and treated, cancelled next visit in POC and did not reschedule. At this point, it has been over 6 weeks and I will discontinue him from my care. At this point I will be discontinuing this patient from physical therapy. I would be happy to see this patient again in the future if found appropriate by the physician. Thank you! Fredis Quinones DPT, OCS, CSCS Balance/Gait/Functional tests Balance/Special Test Scores Functional Gait Assessment Score: 25 % Disability: 16.6700 Dizziness Score: 12 <Electronically signed by Fredis Quinones DPT, OCS, CSCS> 09/13/23 1715 CC: Dr. Alex Giang MD ~ EBG Signed [facility] Work Phone: 1(539) 192-323210-20-2023 Note ORIGINAL EXAMINATION: CT of the right [...] Sign Date: 08/26/2023 4:18:41 PM Ordering Provider: [facility]06-24-2021 Note HNO ID: [id number] Author: Jin Hinds MD Service: ? Author Type: Physician Type: Progress Notes Filed: 05/05/2021 8:44 PM Note Text: CONSULT ORTHOPAEDIC: KNEE PRIMARY CARE PHYSICIAN: No primary care provider on file. REFERRING PROVIDER: SELF ASSESSMENT AND PLAN Impression: Left Knee Severe Degenerative Osteoarthritis, Primary After discussion with Fred Mon, continued non-operative management of store merchandiser bracing and Voltaren gel was chosen. The [...] and healthy. The patient has been ordered: Stock Patch Sawyer brace CONSULTS: Patient does not require consults for optimization at this time. There is no problem list on file for this patient. SUBJECTIVE CHIEF COMPLAINT: Knee Pain HPI: Fred Mon is a 80 year old patient here for evaluation and management of left knee pain. Fred Mon has had progressive problems with the [...] specific incident that brought about this pain. Fred Mon states her left knee catches occasionally [...] mouth. PHYSICAL EXAM: Ht 165.1 cm (5' 5) Wt 87.1 kg (192 lb) BMI 31.95 [...] noted to hav (more content not included)... [facility] note Author Tiffanie Matias [facility] December 23, 2023 10:52am Note Date/Time December 23, 2023 10:[address] [place] [address] Medical Records Department [address] [place] [address] Counseling Note - Pharmacy 12/23/23 1052 MR#: [id number] Acct: [id number] Name: FRED MON Rep #:[id number] : 1940 83 From: Tiffanie Matias PCP: Dr. Alex Giang MD Status:AD M IN Location: [facility] [id number] Pharmacy [place] Med Reconciliation Pharmacy Service has performed discharge medication reconciliation for this patient. The patient's discharge medication list was reviewed for discrepancies and discrepancies were resolved. Medications at Discharge Home Medications lovastatin 40 mg tablet 40 mg PO DAILY 04/29/20 cholecalciferol (vitamin D3) 50 mcg (2,000 unit) capsule 50 mcg PO DAILY 06/23/22 lisinopril 10 mg tablet 10 mg PO DAILY 06/23/22 acetaminophen 500 mg tablet 1,000 mg (2 x 500 mg) PO Q8 #0 tabs 12/23/23 aspirin 81 mg chewable tablet 81 mg PO BIDCM #0 tabs 12/23/23 famotidine 20 mg tablet 20 mg PO DAILY #0 tabs 12/23/23 melatonin 3 mg tablet 3 mg PO QHS #0 tabs 12/23/23 meloxicam 7.5 mg tablet 7.5 mg PO BID #0 tabs 12/23/23 nut.tx.comp. immune systm,reg 0.08 gram-1.4 kcal/mL oral liquid (Ensure Surgery)237 ml PO TIDCM #0 mL 12/23/23 oxycodone 5 mg tablet 5 - 10 mg (1 - 2 x 5 mg) PO Q4H PRN PRN Pain Score 4-10 5 days #42 tabs 12/23/23 sennosides 8.6 mg-docusate sodium 50 mg tablet (Stool Softener-Stimulant Laxative) 2 tab PO BID 5 days #20 tabs 12/23/23 12/23/23 1052 <Electronically signed by Tiffanie Matias> Date _ Tiffanie Matias Cosigner Signature (if applicable): Date CC: ~ Signed [facility] Work Phone: Discharge summary Author Jose Ramon Zuluaga [facility] December 23, 2023 10:40am Note Date/Time December 23, 2023 10:34am [facility] Medical Records Department [address] [place] [address] Discharge Summary 12/23/23 1030 MR#: [id number] Acct: [id number] Name: FRED MON Rep #:[id number] : 1940 83 From: Jose Ramon Sol PCP: Dr. Alex Giang MD Status:AD IN [id number] Providers Date of Admission: 12/21/23 Primary Care Physician: Dr. Alex Giang MD Consultations 12/21/23 07:04 Consult: Hospitalist Routine Consulting Provider: Stefano Avina Reason for Consult: post op med management EMERGENT Consult: No MD Notified: Yes Date Notified: 12/21/23 Time Notified: 12:00 Method of Notification: Text Reason For Visit: LEFT TOTAL KNEE ARTHROPLASTY WITH R Diagnosis Discharge Diagnosis (1) Status post total left knee replacement: Status: Acute Code(s): Z96.652 - Presence of left artificial knee joint Medications at Discharge Home Medications lovastatin 40 mg tablet 40 mg PO DAILY 04/29/20 cholecalciferol (vitamin D3) 50 mcg (2,000 unit) capsule 50 mcg PO DAILY 06/23/22 lisinopril 10 mg tablet 10 mg PO DAILY 06/23/22 acetaminophen 500 mg tablet 1,000 mg (2 x 500 mg) PO Q8 #0 tabs 12/23/23 aspirin 81 mg chewable tablet 81 mg PO BIDCM #0 tabs 12/23/23 famotidine 20 mg tablet 20 mg PO DAILY #0 tabs 12/23/23 melatonin 3 mg tablet 3 mg PO QHS #0 tabs 12/23/23 meloxicam 7.5 mg tablet 7.5 mg PO BID #0 tabs 12/23/23 nut.tx.comp. immune systm,reg 0.08 gram-1.4 kcal/mL oral liquid (Ensure Surgery)237 ml PO TIDCM #0 mL 12/23/23 oxycodone 5 mg tablet 5 - 10 mg (1 - 2 x 5 mg) PO Q4H PRN PRN Pain Score 4-10 5 days #42 tabs 12/23/23 sennosides 8.6 mg-docusate sodium 50 mg tablet (Stool Softener-Stimulant Laxative) 2 tab PO BID 5 days #20 tabs 12/23/23 Hospital Course Operations total knee replacement (Left) Summary of Care Provided Hospital Course: Patient was brought to the hospital and admitted on December 21 after left totalknee replacement. She did well and had uneventful postoperative course however based on patient's age and limited mobility she demonstrated some concerns with physical therapy and discharged to transitional care unit was arranged for the patient. After facility was able to tap patient pre-CERT was obtained and patient was ready for discharge on postoperative day 2. Physical Exam Narrative Left lower extremity: Dressing is clean dry and intact Sensations intact to light touch saphenous, sural, superficial peroneal, deep peroneal, and tibial distributions Motors intact EHL, DF, PF calves are soft and supple Const alert, oriented x3 and no apparent distress Weight / BMI Weight Weight: 191 lb 12.835 oz Body Mass Index (BMI) 31.8 ABG / Lab / Microbiology Data 12/23/23 06:20 12/22/23 06:34 Laboratory: Laboratory Results - last 24 hr 12/23/23 06:20: WBC 8.5, RBC 3.53 L, Hgb 10.2 L, Hct 31.4 L, MCV 89.0, MCH 28.9,MCHC 32.5, RDW Std Deviation 46.8 H, RDW Coeff of Rachel 14.5, Plt Count 142 L, MPV10.3 Microbiology: Microbiology 12/08/23 14:57 Swab (Method) Nasal Screen MRSA/MSSA - Final D/C Instructions Discharge Diet: No restrictions Discharge Activity: May Not Drive May shower in (days): 2 Ice area for (Minutes): 20 (every hour while awake.) Weight Bearing Status: Weight bearing as tolerated Keep extremity elevated above heart level: Operative Extremity Additional Activity Instructions: Wear elastic stockings for 2 weeks after your surgery. Call your doctor if your incision/area has: Continuous Slow Oozing, Sudden Increased Bleeding, Increased Pain/ Swelling, Increased Redness and Foul Smelling Discharge Call your doctor if you observe: Fever of 101 or Higher, Coldness, Increased Pain, Numbness or Tingling, Change in Color, Calf discomfort and Uncontrolled pain Change Dressing in: 1 day (and daily as needed.) Meaningful Use Info Meaningful Use Diagnoses (Choose all that apply): None applicable Discharge Plan Admission Admit Date/Time: 12/21/23 07:03 Primary Reason for Your Visit: Left knee osteoarthritis with total knee replacement Attending Provider: Jose Ramon Zuluaga Primary Care Provider: Alex Giang Consulting Providers: Stefano Avina Discharge Orders/Prescriptions Prescriptions: New melatonin 3 mg Tablet 3 mg PO QHS Qty: 0 0RF acetaminophen 500 mg Tablet 1,000 mg PO Q8 Qty: 0 0RF meloxicam 7.5 mg Tablet 7.5 mg PO BID Qty: 0 0RF famotidine 20 mg Tablet 20 mg PO DAILY Qty: 0 0RF aspirin 81 mg Tablet,Chewable 81 mg PO BIDCM Qty: 0 0RF oxycodone 5 mg Tablet 5 - 10 mg PO Q4H PRN PRN (Reason: Pain Score 4-10) 5 Days Qty: 42 0RF Ensure Surgery 0.08-1.4 gram-kcal/mL Liquid 237 ml PO TIDCM Qty: 0 0RF sennosides-docusate sodium [Stool Softener-Stimulant Laxat] 8.6-50 mg Tablet 2 tab PO BID 5 Days Qty: 20 0RF Continued lisinopril 10 mg tablet 10 mg PO DAILY cholecalciferol (vitamin D3) 50 mcg (2,000 unit) capsule 50 mcg PO DAILY lovastatin 40 MG tablet 40 mg PO DAILY Discontinued acetaminophen [Tylenol 8 Hour] 650 mg tablet extended release 650 mg PO Q12H Referrals / Follow Up: Alex Giang MD [Primary Care Provider] - Disposition Disposition (needs filled in before D/C Order can be placed): Long-Term Facility 12/23/23 1040 <Electronically signed by Jose Ramon Zuluaga MD> Cosigner Signature (if applicable): CC: Dr. Alex Giang MD; Dr. Jose Ramon Zuluaga MD~ Signed [facility] Work Phone: Discharge summary Author Jose Ramon Zuluaga [facility] December 23, 2023 10:47am Note Date/Time December 23, 2023 10:47am [facility] Medical Records Department [address] [place] [address] Transfer to [facility] Care MR#: [id number] Acct: [id number] Name: FRED MON Rep #:[id number] : 1940 83 From: Jose Ramon Sol PCP: Dr. Alex Giang MD Status:AD M IN Certification of patient admission REQUIRED AT TIME OF ADMISSION. I CERTIFY THAT POST-HOSPITAL ECF SERVICES ARE REQUIRED TO BE GIVEN ON AN IN-PATIENT BASIS BECAUSE OF THE ABOVE NAMED PATIENT'S NEED FOR INTERMEDIATE CARE ON A CONTINUING BASIS FOR THE CONDITION(S) FOR WHICH HE/SHE WAS RECEIVING IN-PATIENT HOSPITAL SERVICES PRIOR TO HIS/HER TRANSFER TO THE F. 12/23/23 1047<Electronically signed by Jose Ramon Zuluaga MD> Diet Diet Order/Speech Therapy: 12/21/23 16:13 Diet: Regular - General Is pt able to select menu?: Yes Routine Orders/Code Status O2 Frequency: PRN Wound(s) LEFT KNEE: Wound Type: Surgical Incision L ureña: Wound Type: Puncture Problem/Diagnosis (1) Status post total left knee replacement: Status: Acute Code(s): Z96.652 - Presence of left artificial knee joint Plan: 1. S/P left total knee arthroplasty POD #2 2. Continue Pain Medications: Tylenol, meloxicam, oxycodone. Do not take any other nonsteroidal anti-inflammatories while using meloxicam/Mobic. 3. DVT Prophylaxis: Take 81 mg aspirin twice daily for 4 weeks postoperatively for DVT prophylaxis. Patient denies past history of DVT or pulmonary embolism 4. PT/OT: Weightbearing as tolerated with walker. 5. H & H: 10.31.4, asymptomatic, stable this morning. Since patient's last surgery in the fall 2022 she has been dealing with some anemia. She has been following Jose Ramon Zuluaga protocol for anemia in which she is using ferrous sulfate and folic acid. Preoperative hemoglobin/hematocrit was 11.3/35.8 on December 08, 2023. We will continue to monitor with repeat lab work tomorrow. Patient is currently asymptomatic on clinical exam. 6. Continue postoperative medical management per medicine 7. Reactive leukocytosis: Resolved today. 8. Encouraged Incentive Spirometry 9. Patient's mental status appears to be improved today. Discussed with the daughter nursing care will be vital in helping manage any further confusion she has during the day at the transitional care unit. Likely related to postanesthesia effects as well as postsurgical effects associated with age. 10. Disposition: Case management is currently involved as there is concern with patient going home for safety reasons. She had a risk assessment and predictiontool score of 2/12. She also lives home alone. Patient has excepting facility at [facility]. Pre-CERT is been obtained. Plan is for discharge today. We did go over discharge instructions including DVT prophylaxis medications, stool softeners and pain management. I have reviewed the [place] Automated Rx Reporting System (OARRS) report for this patient for refill pattern and other prescriber involvement as part of the appropriate surveillance for the provision of acute and chronic controlled medications. The report was requested and reviewed on the date of this entry and was considered in the prescribing process. This dictation was created using voice recognition software. Phonetic and/or grammatical errors may exist. Allergies/Procedures Done in Hospital Allergies No Known Allergies Allergy (Verified 12/21/23 06:41) Type of Care/Length of Stay Estimated LOS: Convalescent Care Less Than 30 days Type of Care Needed: Skilled Rehab Potential: Good Prognosis: Good Additional Orders/Day of Discharge Day of Discharge: 12/23/23 Follow Up Care Please Follow Up With: Michael Joel PA-C When: 01-05-2024 3pm Discharge Plan Admission Admit Date/Time: 12/21/23 07:03 Primary Reason for Your Visit: Left knee osteoarthritis with total knee replacement Attending Provider: Jose Ramon Zuluaga Primary Care Provider: Alex Giang Consulting Providers: Stefano Avina Discharge Orders/Prescriptions Prescriptions: New melatonin 3 mg Tablet 3 mg PO QHS Qty: 0 0RF acetaminophen 500 mg Tablet 1,000 mg PO Q8 Qty: 0 0RF meloxicam 7.5 mg Tablet 7.5 mg PO BID Qty: 0 0RF famotidine 20 mg Tablet 20 mg PO DAILY Qty: 0 0RF aspirin 81 mg Tablet,Chewable 81 mg PO BIDCM Qty: 0 0RF oxycodone 5 mg Tablet 5 - 10 mg PO Q4H PRN PRN (Reason: Pain Score 4-10) 5 Days Qty: 42 0RF Ensure Surgery 0.08-1.4 gram-kcal/mL Liquid 237 ml PO TIDCM Qty: 0 0RF sennosides-docusate sodium [Stool Softener-Stimulant Laxat] 8.6-50 mg Tablet 2 tab PO BID 5 Days Qty: 20 0RF Continued lisinopril 10 mg tablet 10 mg PO DAILY cholecalciferol (vitamin D3) 50 mcg (2,000 unit) capsule 50 mcg PO DAILY lovastatin 40 MG tablet 40 mg PO DAILY Discontinued acetaminophen [Tylenol 8 Hour] 650 mg tablet extended release 650 mg PO Q12H Referrals / Follow Up: Alex Giang MD [Primary Care Provider] - Disposition Disposition (needs filled in before D/C Order can be placed): [facility] Facility 12/23/23 1047 <Electronically signed by Jose Ramon Zuluaga MD> Cosigner Signature (if applicable): CC: Dr. Alex Giang MD; Dr. Stefano Avina MD ~ [facility] Work Phone: Evaluation + Plan note Future Appointments [facility] Evaluation noteNo assessment information available [facility] Work Phone: Evaluation note* Diagnosis Onset Date Resolution Status Borderline hyperlipidemia ac marcella Osteopenia after menopause a cute Hypertension chronic Encounter for routine gynecological examination noneactive [facility] Work Phone: Evaluation note* Diagnosis Onset Date Resolution Status Status post total left knee replacement acute [facility] Work Phone: Evaluation note* Diagnosis Onset Date Resolution Status Status post total left knee replacement acute Acute encephalopathy acute Carotid artery stenosis acut e Cellulitis of left knee acut e Debility acute Edema of left lower extremity acute Hyperlipidemia acute Osteopenia acute Postoperative anemia acute Status post total left knee replacement acute Hypertension chronic [facility] Work Phone: Hospital course Narrative No data available for this section [facility] Hospital Discharge instructions Additional Instructions Take meclizine as needed for dizziness. Follow-up with your doctor to have your blood pressure rechecked or buy a blood pressure cuff and take it once a day at home and write down the readings to take to your primary care's office. If your dizzy symptoms worsen or you have difficulty ambulating come back to the ER.[facility] Work Phone: Hospital Discharge instructions No data available for this section [facility] Progress note No data available for this section [facility] Progress note Author Jose Ramon Zuluaga [facility] December 23, 2023 10:44am Note Date/Time December 23, 2023 10:44am [facility] Medical Records Department [address] [place] [id number] Progress Note - Orthopedic 12/23/23 1040 MR#: [id number] Acct: [id number] Name: FRED MON AMAN Rep #:[id number] : 1940 83 From: Jose Ramon Sol PCP: Dr. Alex Giang MD Status:AD M IN Location: [place] [address] Subjective Subjective Patient doing well. Stable. Daughter is at bedside and does feel that she was slightly confused yesterday. Mental status is improved today. Medically stableready for discharge. Rehab was been obtained for transitional care unit. Objective Data Objective Data Vital Signs: Vital Signs Temp Pulse Resp BP Pulse Ox O2 Del Method O2 Flow Rate 97.9 F 69 16 152/73 H 99 Room Air 2 12/23/23 09:30 12/23/23 09:30 12/23/23 09:30 12/23/23 09:30 12/23/23 09:30 12/23/23 09:30 12/21/23 12:46 Oxygen Flow Rate (L/min) 2 Oxygen Delivery Method Room Air Weight: 191 lb 12.835 oz Body Mass Index (BMI) 31.8 Intake & Output: Intake and Output for Last 24 Hours 12/21/23 12/22/23 12/23/23 23:59 23:59 23:59 Intake Total 3732 / 3732 800 / 800 Balance 3732 / 3732 800 / 800 Lab / Micro Data Attestation: I reviewed the patient's lab results. 12/23/23 06:20 12/22/23 06:34 Labs: Laboratory Results - last 24 hr 12/23/23 06:20: WBC 8.5, RBC 3.53 L, Hgb 10.2 L, Hct 31.4 L, MCV 89.0, MCH 28.9,MCHC 32.5, RDW Std Deviation 46.8 H, RDW Coeff of Rachel 14.5, Plt Count 142 L, MPV10.3 Micro: Microbiology 12/08/23 14:57 Swab (Method) Nasal Screen MRSA/MSSA - Final Physical Exam Narrative Left lower extremity: Dressing is clean dry and intact Sensations intact to light touch saphenous, sural, superficial peroneal, deep peroneal, and tibial distributions Motors intact EHL, DF, PF calves are soft and supple Const alert, oriented x3 and no apparent distress Assessment & Plan Assessment/Plan (1) Status post total left knee replacement: PLAN: 1. S/P left total knee arthroplasty POD #2 2. Continue Pain Medications: Tylenol, meloxicam, oxycodone. Do not take any other nonsteroidal anti-inflammatories while using meloxicam/Mobic. 3. DVT Prophylaxis: Take 81 mg aspirin twice daily for 4 weeks postoperatively for DVT prophylaxis. Patient denies past history of DVT or pulmonary embolism 4. PT/OT: Weightbearing as tolerated with walker. 5. H & H: 10.2/31.4, asymptomatic, stable this morning. Since patient's last surgery in the fall 2022 she has been dealing with some anemia. She has been following Jose Ramon Zuluaga protocol for anemia in which she is using ferrous sulfate and folic acid. Preoperative hemoglobin/hematocrit was 11.3/35.8 on December 08, 2023. We will continue to monitor with repeat lab work tomorrow. Patient is currently asymptomatic on clinical exam. 6. Continue postoperative medical management per medicine 7. Reactive leukocytosis: Resolved today. 8. Encouraged Incentive Spirometry 9. Patient's mental status appears to be improved today. Discussed with the daughter nursing care will be vital in helping manage any further confusion she has during the day at the transitional care unit. Likely related to postanesthesia effects as well as postsurgical effects associated with age. 10. Disposition: Case management is currently involved as there is concern with patient going home for safety reasons. She had a risk assessment and predictiontool score of 2/12. She also lives home alone. Patient has excepting facility at [facility]. Pre-CERT is been obtained. Plan is for discharge today. We did go over discharge instructions including DVT prophylaxis medications, stool softeners and pain management. I have reviewed the [place] Automated Rx Reporting System (OARRS) report for this patient for refill pattern and other prescriber involvement as part of the appropriate surveillance for the provision of acute and chronic controlled medications. The report was requested and reviewed on the date of this entry and was considered in the prescribing process. This dictation was created using voice recognition software. Phonetic and/or grammatical errors may exist. 12/23/23 1044 <Electronically signed by Jose Ramon Zuluaga MD> Cosigner Signature (if applicable): CC: ~ Signed [facility] Work Phone: Summary Purpose Family History No Family History Records FoundNo Family History Records Found No data available for this section No data available for this section No data available for this section No Family History Records FoundNo Family History Records Found Advance Directives No Advanced Directives Records Found Advance Directive Response Recorded Date/ Time Living Will Yes April 29, 2020 6:48am Power of Casting Machine Operator Helper Yes April 29 0 6:48am Advance Directive Response Recorded Date/ Time Living Will Yes April 29, 2020 5:48am Power of Casting Machine Operator Helper Yes April 29 0 5:48am Advance Directive Response Recorded Date/ Time Living Will Yes May 24, 2023 9:13pm Power of Casting Machine Operator Helper Yes May 24 3 9:13pm Name of Medical Power of Casting Machine Operator Helper [facility] May 24, 2023 9:13pm Advance Directive Response Recorded Date/ Time Name of Medical Power of Casting Machine Operator Helper [facility] May 24, 2023 9:13pm Name of Medical Power of Casting Machine Operator Helper [place] P[place]ILL[place] N- DAUGHTER May 26, 2023 2:15pm Living Will Yes May 26, 2023 2:15pm Power of Casting Machine Operator Helper Yes May 26 2:15pm Advance Directive Response Recorded Date/ Time Name of Medical Power of Casting Machine Operator Helper [facility] May 24, 2023 8:13pm Name of Medical Power of Casting Machine Operator Helper [place]USEY N- DAUGHTER May 26, 2023 1:15pm Living Will Yes May 26, 2023 1:15pm Power of Casting Machine Operator Helper Yes May 26 1:15pm Advance Directive Response Recorded Date/ Time Living Will Yes May 26, 2023 1:15pm Power of Casting Machine Operator Helper Yes May 26 1:15pm Advance Directive Response Recorded Date/ Time Living Will Yes November 23 8:50am Power of Casting Machine Operator Helper Yes November 23, 2023 8:50am Advance Directive Response Recorded Date/ Time Name of Medical Power of Casting Machine Operator Helper [facility] December 21, 2023 12:33pm Living Will Yes December 21, 2 024 12:33pm Power of Casting Machine Operator Helper Yes December 21, 2023 12:33pm Advance Directive Response Recorded Date/ Time Name of Medical Power of Casting Machine Operator Helper [place] [place] December 21, 2023 12:33pm Name of Medical Power of Casting Machine Operator Helper Camille Del Valle, daughter December 26, 2023 4:55pm Living Will Yes December 26, 2 024 4:55pm Power of Casting Machine Operator Helper Yes December 26, 2023 4:55pm Chief Complaint and Reason for Visit Chief Complaint SHLD PN/RX W/ PT Chief Complaint OSTEO Chief Complaint OSTEO 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 Reason for Visit Borderline hyperlipi demia Osteopenia after menopause Hypertension Encounter for routine gynecological examination Chief Complaint 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 SOB Reason for Visit Borderline hyperlipi demia Osteopenia after menopause Hypertension Encounter for routine gynecological examination Chief Complaint SOB Shortness of breath Shortness of breath Chief Complaint HEAD INJURY Chief Complaint HEAD INJURY DIZZINESS Chief Complaint HEAD INJURY DIZZINESS SCREENING Chief Complaint HEAD INJURY DIZZINESS SCREENING VESTIBULAR/RX HERE Chief Complaint SCREENING VESTIBULAR/RX HERE Chief Complaint VESTIBULAR/RX HERE Occlusion and stenosis of unspecified carotid zoie Chief Complaint Occlusion and stenos is of unspecified carotid zoie LEFT KNEE FABIÁN PROTOCAL PRE OP Chief Complaint Occlusion and stenos is of unspecified carotid zoie LEFT KNEE FABIÁN PROTOCAL PRE OP PREOP LEFT TOTAL KNEE ARTHROPLASTY WITH R LEFT TOTAL KNEE ARTHROPLASTY WITH R Reason for Visit Status post total le ft knee replacement Chief Complaint Occlusion and stenos is of unspecified carotid zoie LEFT KNEE FABIÁN PROTOCAL PRE OP PREOP LEFT TOTAL KNEE ARTHROPLASTY WITH R LEFT TOTAL KNEE ARTHROPLASTY WITH R LEFT TOTAL KNEE ARTHROPLASTY WITH R LT LEG REDNESS/SWELLING Reason for Visit Status post total le ft knee replacement Acute encephalopathy Carotid artery stenosis Cellulitis of left knee Debility Edema of left lower extremity Hyperlipidemia Osteopenia Postoperative anemia Status post total left knee replacement Hypertension Additional Source Comments INFORMATION SOURCE (unrecogn ized section and content) DATE CREATED AUTHOR 07/25/2021 [facility] DATE CREATED AUTHOR AUTHOR'S ORGANIZ ATION 12/09/2021 [facility] DATE CREATED AUTHOR AUTHOR'S ORGANIZ ATION 11/03/2023 [facility] DATE CREATED AUTHOR AUTHOR'S ORGANIZ ATION 06/08/2025 [facility] Goals (unrecognized section and content) Goals may be documented in a n alternate sectionGoals may be documented in an alternate sectionGoals may be documented in an alternate sectionGoals may be documented in an alternate sectionGoals may be documented in an alternate sectionGoals may be documented in an alternate sectionGoals may be documented in an alternate sectionGoals may be documented in an alternate sectionGoals may be documented in an alternate sectionGoals may be documented in an alternate sectionGoals may be documented in an alternate section No data available for this section No data available for this sectionGoals may be documented in an alternate section No data available for this sectionGoals may be documented in an alternate sectionGoals may be documented in an alternate sectionGoals may be documented in an alternate section Care Teams (unrecognized sec tion and content) Team Status: Active Member Role Status Dates Dr. Alex Giang MD Family Provider Active Dr. Alex Giang MD Primary Care Provider Active Team Status: Inactive Member Role Status Dates Dr. Alex Giang MD Primary Care Provider Active Dr. Winter Michel MD Emergency Provider Active Team Status: Inactive Member Role Status Dates Dr. Alex Giang MD Primary Care Provider Active Dr. Torrey Bailey DO Emergency Provider Active Team Status: Inactive Member Role Status Dates Dr. Alex Giang MD Primary Care Provider Active Rosario Kasper ATTENUATOR, ATTENUATOR-C Attending Provider, Referring Pro vider Active Team Status: Inactive Member Role Status Dates Dr. Alex Giang MD Primary Care Provider Active Dr. Winter Michel MD Attending Provider, Emergency Provider Active Team Status: Inactive Member Role Status Dates Dr. Alex Giang MD Primary Care Provider Active Dr. Torrey Bailey DO Attending Provider, Emergency Provide r Active Team Status: Inactive Member Role Status Dates Dr. Alex Giang MD Primary Care Pr ovider, Attending Provider, Referring Provider Active Team Status: Inactive Member Role Status Dates Dr. Alex Giang MD Primary Care Provider, Attend ing Provider Active Team Status: Inactive Member Role Status Dates Dr. Alex Giang MD Primary Care Provider Active Dr. Jose Ramon Zuluaga MD Attending Provider, Referring P rovider Active Team Status: Active Member Role Status Dates Dr. Alex Giang MD Primary Care Provider Active Dr. Adolfo Rice MD Attending Provider Active Dr. Fredis Edwards MD Referring Provider Active Team Status: Active Member Role Status Dates Dr. Alex Giang MD Primary Care Provider Active Dr. Jose Ramon Zuluaga MD Admit Provider, R eferring Provider, Other Provider Active Dr. Stefano Avina MD Attending Provider, Other Provider Active Team Status: Inactive Member Role Status Dates Dr. Alex Giang MD Primary Care Provider Active Dr. Jose Ramon Zuluaga MD Admit Provider, A ttending Provider, Referring Provider Active Dr. Stefano Avina MD Other Provider Active Team Status: Active Member Role Status Dates Dr. Alex Giang MD Primary Care Provider Active Dr. Fredis Quiros MD Attending Provider Active Team Status: Active Member Role Status Dates Dr. Alex Giang MD Primary Care Provider Active Dr. Nima Harper MD Admit Provider, Attending Provid er Active Team Status: Inactive Member Role Status Dates Dr. Alex Giang MD Primary Care Provider Active Dr. Nima Harper MD Attending Provider, Referring Pr ovider Active Team Status: Inactive Member Role Status Dates Dr. Alex Giang MD Primary Care Provider Active Dr. Nima Harper MD Admit Provider, Attending Provid er Active FOR RECORDS PERTAINING TO PATIENTS WHO ARE [...] BE BASED ON THE PRIMARY CLINICAL RECORDS. [facility] [employer] [facility]. provides no warranty or guarantee of the accuracy or completeness of information in this document.
== END | disposition home or self-care (01) ==
PROVIDERS: PCP Family Medicine; Referring Provider Family Medicine; Visit Provider Family Medicine
DX: Z12.31 Encounter for screening mammogram for malignant neoplasm of breast (principal)
CPT/HCPCS: 77063; 77067

== ENCOUNTER → 2025-06-13 | Outpatient (CLI) | payer MEDICARE, SELFPAY ==
--- NOTE | 2025-06-13 13:14 | US_ITS ---
PROCEDURE: BREAST LIMITED UNILATERAL 06/13/2025 REASON FOR EXAM: F, Age 84 y/o , ABN MAMM Abnormal diagnostic mammogram. COMPARISON: Prior mammogram done earlier in the day.. TECHNIQUE: BREAST LIMITED UNILATERAL. Imaging of the lateral upper aspect of the right breast was examined with ultrasound. FINDINGS: There is a 3 mm x 3 mm x 2 mm cyst at the 10 o'clock position of the breast at 4 cm from the nipple. There is a 3 mm x 3 mm x 3 mm cyst at the 10 o'clock position of the breast at 2 cm from the nipple. There is also evidence of a 4 mm x 4 mm x 5 mm cyst at the 11 o'clock position of the breast at 3 cm from the nipple. US/Breast Limited Unilateral IMPRESSION: The mammographic abnormality corresponds to 3, adjacent subcentimeter cysts as described. BI-RADS 2: BENIGN RECOMMENDATION: Routine annual follow-up in 1 Year Reading Location: [facility]
--- NOTE | 2025-06-13 13:14 | BI_ITS ---
EXAM: DIAG MAMM W/CAD, UNILAT 06/13/2025 CLINICAL HISTORY: F, Age 84 y/o , ABN MAMM screening mammogram. TECHNIQUE: DIAG MAMM W/CAD, UNILAT. COMPARISON: Prior exam(s) dated June 10.. FINDINGS: TISSUE DENSITY: There are scattered areas of fibroglandular density. Bilateral Breast Mammographic Findings: No significant masses, calcifications or other abnormalities are identified. Once again, 3 tiny subcentimeter nodular densities are seen in the anterior upper lateral aspect of the right breast. Sonographic correlation recommended. BI/DIAG MAMM W/CAD, UNILAT IMPRESSION: Persistent tiny nodular densities as described. Targeted sonographic correlati on recommended. OVERALL FINAL ASSESSMENT BI-RADS 0: INCOMPLETE - NEED ADDITIONAL IMAGING EVALUATION. RECOMMENDATION: Ultrasound Recommended A letter with findings and recommendations will be mailed to the patient. Reading Location: [id number]
--- NOTE | 2025-06-13 13:14 | US_ITS ---
PROCEDURE: BREAST LIMITED UNILATERAL 06/13/2025 REASON FOR EXAM: F, Age 84 y/o , ABN MAMM Abnormal diagnostic mammogram. COMPARISON: Prior mammogram done earlier in the day.. TECHNIQUE: BREAST LIMITED UNILATERAL. Imaging of the lateral upper aspect of the right breast was examined with ultrasound. FINDINGS: There is a 3 mm x 3 mm x 2 mm cyst at the 10 o'clock position of the breast at 4 cm from the nipple. There is a 3 mm x 3 mm x 3 mm cyst at the 10 o'clock position of the breast at 2 cm from the nipple. There is also evidence of a 4 mm x 4 mm x 5 mm cyst at the 11 o'clock position of the breast at 3 cm from the nipple. US/Breast Limited Unilateral IMPRESSION: The mammographic abnormality corresponds to 3, adjacent subcentimeter cysts as described. BI-RADS 2: BENIGN RECOMMENDATION: Routine annual follow-up in 1 Year Reading Location: [facility]
--- NOTE | 2025-06-13 13:14 | BI_ITS ---
EXAM: DIAG MAMM W/CAD, UNILAT 06/13/2025 CLINICAL HISTORY: F, Age 84 y/o , ABN MAMM screening mammogram. TECHNIQUE: DIAG MAMM W/CAD, UNILAT. COMPARISON: Prior exam(s) dated June 10.. FINDINGS: TISSUE DENSITY: There are scattered areas of fibroglandular density. Bilateral Breast Mammographic Findings: No significant masses, calcifications or other abnormalities are identified. Once again, 3 tiny subcentimeter nodular densities are seen in the anterior upper lateral aspect of the right breast. Sonographic correlation recommended. BI/DIAG MAMM W/CAD, UNILAT IMPRESSION: Persistent tiny nodular densities as described. Targeted sonographic correlati on recommended. OVERALL FINAL ASSESSMENT BI-RADS 0: INCOMPLETE - NEED ADDITIONAL IMAGING EVALUATION. RECOMMENDATION: Ultrasound Recommended A letter with findings and recommendations will be mailed to the patient. Reading Location: [id number]
== END | disposition home or self-care (01) ==
LOC: OPBI 13:12
PROVIDERS: PCP Family Medicine; Referring Provider Family Medicine; Visit Provider Family Medicine
DX: R92.8 Other abnormal and inconclusive findings on diagnostic imaging of breast (principal)
CPT/HCPCS: 76642; 77061; 77065; G0279

== ENCOUNTER → 2025-07-04 | Outpatient (CLI) | payer MEDICARE, SELFPAY ==
[2025-07-04 15:51] LABS: Mucous, Urine 0 SEEN /hpf (<or=2+); Squamous Epithelial Cells - UA 0 SEEN /hpf (5-10)
[2025-07-04 18:31] LABS: AST(SGOT) 26 U/L (<=31); Alanine Aminotransfer ALT/SGPT 18 U/L (<=34); Albumin, Serum 4.2 g/dL (3.4-4.8); Alkaline Phosphatase 89 U/L (35-104); Anion Gap 12 (5-15); BUN 18 mg/dL (4-19); BUN/Creat Ratio 18.1 RATIO (10-20); Calcium,Total 9.5 mg/dL (7.6-11.0); Carbon Dioxide 24.6 mmol/L (21.0-32.0); Chloride 104 mmol/L (98-108); Cholesterol 174 mg/dL (<=200); Globulin 2.3 g/dL (2.2-4.2); Glucose 103 mg/dL (70-99); Low Density Lipoprotein Calc. 58 mg/dL; Potassium 4.1 mmol/L (3.3-5.1); Triglycerides 218 mg/dL; Very Low Density Lipoprotein 44 mg/dL (5-40); Vitamin D,25 Hydroxy 28.6 ng/mL (30-100); cholesterol:hdl ratio screen 2.41
[2025-07-04 18:36] LABS: Hematocrit 36.4 % (37-47); Hemoglobin 12.2 g/dL (12.0-15.0); Immature Granulocytes Count 0.020 X10^3/uL (0.0-0.0); Mean Corp Hgb Conc 33.5 g/dL (32-36); Mean Corpuscular Volume 90.3 fL (81-99); Mean Platelet Vol. 11.0 fl (6.2-12.0); NRBC Flagged by Analyzer 0 % (0-5); Platelet Count 159 K/mm3 (150-450); RBC Distribution Width CV 13.8 % (11.6-14.6); RBC Distribution Width SD 45.1 fl (35.1-43.9); Red Blood Count 4.03 M/mm3 (4.2-5.4); White Blood Count 4.7 K/mm3 (4.4-11.0)
[2025-07-04 21:39] LABS: Color, Urine Yellow (Yellow); Glucose, Dipstick Normal (Normal); Ketone-Dipstick 5 mg/dl (Negative); Leukocyte Esterase-Dipstick 25 /ul (Negative); Nitrite-Dipstick Negative (Negative); Occult Blood-Urine 150 /ul (Negative); Protein-Dipstick 30 mg/dl (Negative); Specific Gravity, Urine 1.020 (1.002-1.030); Urine Bilirubin Dipstick Negative (Negative)
[2025-07-04 22:20] LABS: Red Blood Cells-Urine 0-5 SEEN /hpf (0-5)
== END | disposition home or self-care (01) ==
LOC: MFPLAB 15:50
PROVIDERS: PCP Family Medicine; Referring Provider Family Medicine; Visit Provider Family Medicine
DX: I10 Essential (primary) hypertension (principal); E78.00 Pure hypercholesterolemia, unspecified; M81.0 Age-related osteoporosis without current pathological fracture
CPT/HCPCS: 36415; 80053; 80061; 81001; 82306; 85025

== ENCOUNTER 2025-07-07 05:33 | Emergency (ER) | payer MEDICARE, SELFPAY ==
[2025-07-07 05:34] VITALS: BP 189/87; PULSE 75; RESP 18; TEMP 37.1; O2SAT 98; BMI 34.4
--- NOTE | 2025-07-07 05:36 | EDS_ITS ---
HPI History of Present Illness Chief Complaint: Weakness Narrative Narrative: Patient is a 84-year-old female presenting to the emergency department for cough, nausea and feeling fatigued for 2 days. Patient has a past medical history of hyperlipidemia, hypertension and carotid artery stenosis. Patient did not take her medications this morning prior to arrival. Patient states that for the past 2 days she has felt generally weak. Denies any focal weakness or numbness. She reports a dry cough and some mild congestion. Denies fever, chills, sore throat. Denies chest pain, shortness of breath, abdominal pain, vomiting, diarrhea, dysuria or hematuria. She lives at home alone. She denies any recent falls. She denies any headache or neck pain. Denies any visual changes or speech difficulty. Reports that she has been feeling intermittently lightheaded. Denies dizziness. Denies feeling lightheaded at time of evaluation. Asks if we can check for COVID. Ask if she can have something to eat because she thinks her symptoms are due to not eating this morning yet. [facility] Medical History Wears glasses Post-menopausal Walker as ambulation aid Ambulates with cane Arthritis High cholesterol Injury of head and neck Non-smoker Shortness of breath on exertion History of edema History of echocardiogram History of stress test Hyperlipidemia Hypertension Home Medications ?Medication ?Instructions ?Recorded ?Last Taken ?Type lovastatin 40 mg tablet 40 mg PO DAILY Cholesterol 0 04/29/20 12/22/23 21:40 History cholecalciferol (vitamin D3) 50 50 mcg PO DAILY health maintenance 06/23/22 12/23/23 09:30 History mcg (2,000 unit) capsule acetaminophen 500 mg tablet 1,000 mg (2 x 500 mg) PO Q 8 pain 12/23/23 12/23/23 09:30 Rx #0 tabs famotidine 20 mg tablet 20 mg PO DAILY Acid #0 tabs 12/23/23 12/23/23 09:30 Rx acetaminophen 500 mg tablet 1,000 mg (2 x 500 mg) PO Q 6 #0 tabs 01/02/24 Unknown Rx aspirin 81 mg chewable tablet 81 mg PO BIDCM 14 days # 0 tabs 01/02/24 Unknown Rx losartan 100 mg tablet 100 mg PO DAILY 30 days #30 tabs 01/02/24 Unknown Rx melatonin 10 mg sublingual tablet 10 mg PO QHS #0 tabs 01/02/24 Unknown Rx meloxicam 7.5 mg tablet 7.5 mg PO BIDCM 30 days #60 tabs 01/02/24 Unknown Rx tramadol 50 mg tablet 50 mg PO Q6H PRN PRN Pain Sc ore 01/02/24 Unknown Rx 1-10 7 days #28 tabs gabapentin 300 mg capsule 300 mg PO TID PRN pain 5 day s #15 08/10/24 Unknown Rx caps oxycodone 5 mg tablet 5 mg PO Q6H PRN pain 5 days #20 08/10/24 Unknown Rx tabs cephalexin 500 mg capsule 500 mg PO Q12 #14 CAPSULES 0 07/07/25 Unknown Rx Allergy/AdvReac Type Severity Reaction Status Date / Time No Known Allergies Allergy Verified 07/07/25 05:34 Family History no significant family his Surgical History Status post total left knee replacement Hx of colonoscopy Hx of left knee surgery Hx of total knee replacement Social History Smoking Status: Former smoker alcohol intake: never substance use type: does not use caffeine: Yes what type of physical activity do you participate in: none seatbelt use: always do you feel safe at home: Yes additional social history: ROS ROS ED ROS Narrative see HPI EXAM Physical Exam Narrative Exam Narrative: Vital signs: Reviewed General: Alert and orientedx3. No acute distress HEENT: Head is normocephalic and atraumatic, sinuses nontender, pupils equal round and reactive. Nares are patent. Oropharynx and throat exams normal. Neck: Supple without lymphadenopathy nontender Cardiovascular: Regular rate and rhythm, no murmurs. No rubs or gallops. Normal S1 and S2 Respiratory: Clear to auscultation bilaterally. No wheezes, rales, rhonchi Abdominal: Soft and nontender. Normal bowel sounds. No guarding or rebound. Nonsurgical abdomen Extremities: No tenderness. No bruising. Normal range of motion. Normal sensation. Skin: No rash or redness. Neurological: Cranial nerves II through XII are grossly intact. Normal strength and sensation. Normal cerebellar function The rest of the physical exam is unremarkable Const Vital Signs: 07/07/25 05:34 07/07/25 05:34 07/07/25 05:39 Temperature 98.7 F 98.2 F Temperature Source Oral Oral Pulse Rate 75 72 Respiratory Rate 18 18 Respiratory Effort Normal Respiratory Pattern Normal Blood Pressure 189/87 H 189/87 H Blood Pressure Mean 121 121 Pulse Ox 98 97 Oxygen Delivery Method Room Air Room Air 07/07/25 06:17 07/07/25 06:39 07/07/25 07:02 Temperature 98.2 F 97.7 F L Temperature Source Oral Pulse Rate 68 67 Respiratory Rate 18 16 Respiratory Effort Respiratory Pattern Blood Pressure 169/87 H 173/74 H 173/74 H Blood Pressure Mean 114 107 107 Pulse Ox 100 100 Oxygen Delivery Method Room Air NIHSS NIHSS Initial: 1a Level of Consciousness: 0 1b LOC Questions (Score 2 if aphasic/stupor): 0 1c LOC Commands (Only score 1st attempt): 0 2 Best Gaze (If aphasic, use reflexive mvmts.): 0 3 Visual: 0 4 Facial Palsy: 0 5 Motor Arm Right (UN = amputation/fusion): 0 5 Motor Arm Left: 0 6 Motor Leg Right: 0 6 Motor Leg Left: 0 7 Limb ataxia (Only + if out of proportion): 0 8 Sensory (Aphasia/stupor=0 or 1, coma=2): 0 9 Best Language: 0 10 Dysarthria (mute, coma=2, intubated=UN): 0 11 Extinction and Inattention (only scored if +): 0 Total Score: 0 MDM MDM MDM Narrative Medical decision making narrative: Patient is a 84-year-old female presenting to the emergency department for fatigue, cough, congestion and nausea. Patient was seen and examined. Vitals are stable. She arrives mildly hypertensive at 189/87. She did not take her blood pressure medications this morning. On chart review, she is hypertensive on past ER visits. Will give her home dose of BP meds given she is due for them at this time at home. Based on the patient's symptoms I suspect this is likely viral in nature. Zofran given for nausea. Labs, EKG, chest x-ray and viral swab were obtained. Patient is not having any focal weakness. NIH of 0. No described vertiginous symptoms to suspect posterior cerebellar stroke. Similar blood pressure to previous visits. No evidence of hypertensive emergency. No headache, chest pain, SOB, abdominal pain. EKG shows normal sinus rhythm with a right bundle branch block that seen on previous EKGs in 2023. No ischemic changes. No dysrhythmia. CBC with no leukocytosis and a normal hemoglobin. BMP with no significant abnormalities. Glucose of 118. Reevaluated after zofran, nausea is improved. Tolerating PO. CXR reviewed by myself. No opacities noted. Radiology read with no acute radiographic abnormalities. Viral swab positive for COVID19. Patient ambulated to the restroom with no difficulty. Urinalysis with evidence of UTI. Positive for nitrites, 3+ bacteria and leukocyte Estrase. Keflex prescription sent to pharmacy. Discussed findings with patient. Recommended symptomatic care at home for COVID. Saturating 100 on RA. Ambulates well. No indication for admission. Patient discharged from the Emergency Department. I do not feel that the patient's evaluation reveals any acute reason for admission at this time. I instructed them to either follow-up with their primary care physician or promptly return to the Emergency Department for reevaluation should symptoms worsen or new symptoms develop. I explained what symptoms would indicate the need to return to the emergency department. Shared decision making was used. The patient voiced understanding of the treatment plan and is agreeable with it. Clinical impression COVID19 UTI History & Record Review Discussion w/independent historian: Patient Additional record(s) reviewed:: Prior ED visit Lab Data Attestation: I reviewed the patient's lab results. Labs: Laboratory Results - last 24 hr 07/07/25 07/07/25 05:19 06:42 WBC 5.7 RBC 3.97 L Hgb 12.1 Hct 35.0 L MCV 88.2 MCH 30.5 MCHC 34.6 RDW Std Deviation 43.8 RDW Coeff of Rachel 13.5 Plt Count 130 L MPV 10.8 Immature Gran % (Auto) 0.200 Neut % (Auto) 70.1 H Lymph % (Auto) 17.5 L Posey % (Auto) 10.1 H Eos % (Auto) 1.6 Baso % (Auto) 0.5 Absolute Neuts (auto) 4.0 Absolute Lymphs (auto) 0.99 Nucleated RBC % 0 Sodium 137 Potassium 4.1 Chloride 102 Carbon Dioxide 20.8 L Anion Gap 14 BUN 14 Creatinine 0.79 Estim Creat Clear Calc 55.14 Est GFR (MDRD) Non-Af 74 BUN/Creatinine Ratio 17.6 Glucose 118 H Calcium 9.5 Urine Color Yellow Urine Clarity Clear Urine pH 6.0 Ur Specific Eldred 1.015 Urine Protein 15 H Urine Glucose (UA) Normal Urine Ketones Negative Urine Occult Blood 250 H Urine Nitrite Positive H Urine Bilirubin Negative Urine Urobilinogen Normal Ur Leukocyte Esterase 100 H Urine RBC 0-5 SEEN Urine WBC 0-5 SEEN Ur Squamous Epith Cells 0-5 SEEN Urine Bacteria 3+ Urine Mucus 0 SEEN Radiography Chest X-Ray - ED: 2 View, Read by ED Physician, Normal, No Acute Disease and No Infiltrates Diagnostic Testing: Clinical Impression(s) from Imaging Studies Chest X-Ray 07/07/25 06:10 IMPRESSION: No acute cardiopulmonary abnormalities. Reading Location: [facility] Discharge Plan Triage Chief Complaint: Weakness ED Provider: Sophia Quijano Dx/Rx/DC Orders Clinical Impression: COVID-19, Acute UTI Instructions: Symptoms of COVID-19 Infection, Coronavirus Disease 2019 (COVID- 19): Overview, UTIs Prescriptions: New cephalexin 500 mg capsule 500 mg PO Q12 Qty: 14 0RF No Action cholecalciferol (vitamin D3) 50 mcg (2,000 unit) capsule 50 mcg PO DAILY lovastatin 40 MG tablet 40 mg PO DAILY acetaminophen 500 mg Tablet 1,000 mg PO Q8 Qty: 0 0RF famotidine 20 mg Tablet 20 mg PO DAILY Qty: 0 0RF acetaminophen 500 mg Tablet 1,000 mg PO Q6 Qty: 0 0RF tramadol 50 mg Tablet 50 mg PO Q6H PRN PRN (Reason: Pain Score 1-10) 7 Days Qty: 28 0RF meloxicam 7.5 mg Tablet 7.5 mg PO BIDCM 30 Days Qty: 60 0RF aspirin 81 mg Tablet,Chewable 81 mg PO BIDCM 14 Days Qty: 0 0RF losartan 100 mg Tablet 100 mg PO DAILY 30 Days Qty: 30 0RF melatonin 10 mg Tablet, Sublingual 10 mg PO QHS Qty: 0 0RF oxycodone 5 mg tablet 5 mg PO Q6H PRN (Reason: pain) 5 Days Qty: 20 0RF gabapentin 300 mg capsule 300 mg PO TID PRN (Reason: pain) 5 Days Qty: 15 0RF Primary Care Provider: Shant Sommers Referrals: Shant Sommers MD [Primary Care Provider] - 2 Days Activity Restrictions/Additional Instructions: Your evaluation in the Emergency Department did not reveal any acute reason for admission. However, I want to emphasize that you may be early in the course of a disease process or illness even if it is not present. For this reason you should follow-up within 24 hours for reevaluation with either your primary care physician or if necessary back here in the Emergency Department. You should return to the Emergency Department immediately if your symptoms worsen or new symptoms develop. Print Language: Swiss Disposition Disposition: Home, Self Care
[2025-07-07 05:39] VITALS: BP 189/87; PULSE 72; RESP 18; TEMP 36.8; O2SAT 97
--- NOTE | 2025-07-07 05:48 | EKG12_ITS ---
Test Reason : WEAKNESS Blood Pressure : */* mmHG Vent. Rate : 69 BPM Atrial Rate : 69 BPM P-R Int : 174 ms QRS Dur : 142 ms QT Int : 442 ms P-R-T Axes : 53 -9 29 degrees QTcB Int : 473 ms Normal sinus rhythm Right bundle branch block Abnormal ECG Confirmed by Adolfo Rice ([id number]), digital editor MARCIA VARGAS ([id number]) on 07/09/2025 10:35:07 AM Referred By: CAMERON Confirmed By: Adolfo Rice
[2025-07-07 05:58] LABS: Hematocrit 35.0 % (37-47); Hemoglobin 12.1 g/dL (12.0-15.0); Immature Granulocytes Count 0.010 X10^3/uL (0.0-0.0); Mean Corp Hgb Conc 34.6 g/dL (32-36); Mean Corpuscular Volume 88.2 fL (81-99); Mean Platelet Vol. 10.8 fl (6.2-12.0); NRBC Flagged by Analyzer 0 % (0-5); Platelet Count 130 K/mm3 (150-450); RBC Distribution Width CV 13.5 % (11.6-14.6); RBC Distribution Width SD 43.8 fl (35.1-43.9); Red Blood Count 3.97 M/mm3 (4.2-5.4); White Blood Count 5.7 K/mm3 (4.4-11.0)
--- NOTE | 2025-07-07 06:10 | RAD_ITS ---
PROCEDURE: CHEST PA AND LATERAL 07/07/2025 REASON FOR EXAM: COUGH, WEAKNESS TECHNIQUE: Procedure Code: RADCXR Modality: DX Procedure: CHEST PA AND LATERAL COMPARISON: X-ray 08/10/2024. FINDINGS: Hardware: Monitor electrodes overlie the chest. Heart: No cardiomegaly. Mediastinum: Unremarkable. Lungs: Clear. No pleural effusion or pneumothorax. Bones: No acute bony abnormalities. RAD/Chest PA and Lateral IMPRESSION: No acute cardiopulmonary abnormalities. Reading Location: [id number]
[2025-07-07 06:16] LABS: Anion Gap 14 (5-15); BUN 14 mg/dL (4-19); BUN/Creat Ratio 17.6 RATIO (10-20); Calcium,Total 9.5 mg/dL (7.6-11.0); Carbon Dioxide 20.8 mmol/L (21.0-32.0); Chloride 102 mmol/L (98-108); Estimated Creatinine Clearance 55.14 ml/min (50-250); Glucose 118 mg/dL (70-99); Potassium 4.1 mmol/L (3.3-5.1)
[2025-07-07 06:17] VITALS: BP 169/87
--- OUTSIDE RECORDS SUMMARY | 2025-07-07 06:34 | XMS RPT_ITS | CCD ---
Author Organization [facility] Care Team Providers Care Assembler Corncob Pipes Name Role Phone Dr. Alex Giang Primary Care Provider Dr. Alex Giang Referring Provider Dr. Winter Jolley Attending Provider Dr. Alex Giang Primary Care Provider Dr. Alex Giang Referring Provider [phone] Dr. Winter Jolley Attending Provider [phone] Dr. Luis Li Attending Provider Dr. Delta Perez Attending Provider [phone] Dr. Alex Giang Primary Care Provider Dr. Alex Giang Referring Provider Dr. Alex Giang Other Provider Dr. Adrien Abraham Attending Provider MATTHIEU ABDI, ALEX Primary Care Physician ZAN ABDI, [...] RICHARD Fierro Consulting Unavai labarely PAYAN, RICHARD L Attending Chula ZULUAGA MD, DR JOSE RAMON Clemons Attending Unavailab Ramiro ABDI, ALEX Primary Care Unavailable ZAN ABDI, DR JOSE RAMON Clemons Attending Unavailab Ramiro ABDI, ALEX Primary Care Unavailable Dr. Alex Giang Primary Care Provider [phone] Dr. Adolfo Rice Attending Provider Dr. Fredis Edwards Referring Provider Dr. Jose Ramon Zuluaga Admit Provider Dr. Jose Ramon Zuluaga Referring Provider Dr. Jose Ramon Zuluaga Other Provider Dr. Stefano Avina Attending Provider Dr. Stefano Avina Other Provider Dr. Fredis Quiros Attending Provider Matthieu ABDI, Dr. Alex Gage Primary Care Provider Dr. Alex Giang MD Attending Provider [phone] Dr. Alex Giang MD Referring Provider Alex Giang MD Primary Care Provider Alex Giang Primary Care Unavailable Alex Giang Attending Unavailable Alex Giang Referring Unavailable Alex Giang Referring Unavailable Alex Giang Attending Unavailable Alex Giang Primary Care Unavailable Alex Giang Primary Care Unavailable Alex Giang Attending Unavailable Alex Giang Referring Unavailable Alex Giang Referring Unavailable Alex Giang Attending Unavailable Alex Giang Primary Care Unavailable Alex Giang Attending Unavailable Alex Giang Primary Care Unavailable Alex Giang Referring Unavailable Alex Giang Attending Unavailable Alex Giang Primary Care Unavailable Alex Giang Primary Care Unavailable Alex Giang Attending Unavailable Alex Giang Referring Unavailable Andesteban, Víctor Attending Unavailable Alex Giang Primary Care Unavailable Alex Giang Primary Care Unavailable Alex Giang Attending Unavailable Alex Giang Referring Unavailable Medications Current Medications Medication Drug Class(es) Dates Sig (Normalized) Sig (Original) acetaminophen 500 mg oral tablet (17 sources) Start: 01-02-2024 take 2 tablets by mouth every six hours Acetaminophen 500 mg Tablet Active 1000 mg PO EVERY 6 HOURS 0 0 January 02, 2024 1:00am Start: 01-02-2024 take 1000 mg by mout h every six hours Acetaminophen Active 1000 MG PO EVERY 6 HOURS 0 January 02, 2024 12:00am Start: 12-23-2023 take 2 tablets by mo uth every eight hours Acetaminophen 500 mg Tablet Active 1000 mg PO EVERY 8 HOURS 0 0 December 23, 2023 1:00am pain Start: 12-23-2023 take 1000 mg by mout h every eight hours Acetaminophen Active 1000 MG PO EVERY 8 HOURS 0 December 23, 2023 12:00am Start: 11-23-2023 End: 12-23-2023 take 1 tablet by mouth every twelve hours Acetaminophen (Tylenol 8 Hour) 650 mg tablet extended release Discontinued 650 mg PO Q12H November 23, 2023 1:00am December 23, 2023 11:34am Start: 09-21-2023 take 1 tablet by von [...] Status: Ordered aspirin 81 mg chewable tablet (16 sources) Platelet Aggregation Inhibitor, Nonsteroidal Anti-inflammatory Drug Start: 12-23-2023 End: 01-02-2024 take 1 tablet by mouth twice daily at mealtime Aspirin 81 mg Tablet,Chewable Active 81 mg PO TWICE DAILY WITH MEALS 0 14 0 January 02, 2024 1:00am Start: 09-21-2023 End: 10-21-2023 take 1 tablet by mouth twice daily at mealtime Aspirin Low Dose 81 mg oral tablet Dose : 81 mg = 1 tab(s), Oral, BID, Take 81 mg aspirin twice daily with food for 4 weeks postoperatively for DVT prophylaxis., # 60 tab(s), 0 Refill(s), Pharmacy: [facility] #[id number], 165.1, cm, 09/20/23 13:47:00 EST, Height, kg, [...] 2023 11:00pm cholecalciferol 0.05 mg oral capsule (17 sources) Vitamin D Start: 06-23-2022 take 1 capsule by mouth once daily Cholecalciferol (Vitamin D3) 50 mcg (2,000 unit) capsule Active 50 ug PO DAILY June 23, 2022 12:00am health maintenance diclofenac sodium 75 mg delayed release oral tablet (20 sources) Nonsteroidal Anti-inflammatory Drug Start: 05-26-2023 take 75 mg by mouth once daily Diclofenac Sodium Active 75 MG PO DAILY May 25, 2023 11:00pm Start: 04-29-2020 End: 06-23-2022 take 1 tablet by mouth once daily Diclofenac Sodium 75 MG tablet,delayed release (DR/EC) Discontinued 75 mg PO DAILY April 29, 2020 12:00am June 23, 2022 9:19am famotidine 20 mg oral tablet (6 sources) Histamine-2 Receptor Antagonist Start: 12-23-2023 take 1 tablet by mouth once daily Famotidine 20 mg Tablet Active 20 mg PO DAILY 0 0 December 23, 2023 1:00am Acid Start: 09-21-2023 Pepcid 20 mg o ral tablet Dose : 20 mg = 1 tab(s), Oral, qDay, # 30 tab(s), 0 Refill(s), Pharmacy: [facility] #[id number], 165.1, cm, 09/20/23 13:47:00 EST, Height, kg, 09/20/23 13:47:00 EST, Dosing Weight Start Date: 09/21/23 Status: Ordered gabapentin 300 mg oral capsule (2 sources) Anti-epileptic Agent Start: 08-10-2024 take 1 capsule by mouth three times daily as needed for pain Gabapentin 300 mg capsule Active 300 mg PO THREE TIMES A DAY as needed for pain 15 5 August 10, 2024 5:00am Fracture of rib of left side Fracture of one rib, left side, initial encounter for closed fracture losartan potassium 100 mg oral tablet (3 sources) Angiotensin 2 Receptor Carlitos Start: 01-02-2024 take 1 tablet by mouth once daily Losartan 100 mg Tablet Active 100 mg PO DAILY 30 30 0 January 02, 2024 1:00am lovastatin 40 mg oral tablet (20 sources) HMG-CoA Reductase Inhibitor Start: 04-29-2020 take 1 tablet by mouth once daily Lovastatin 40 MG tablet Active 40 mg PO DAILY April 29, 2020 12:00am Cholesterol meclizine hydrochloride 25 mg oral tablet (5 sources) Antiemetic Start: 05-26-2023 take 25 mg by mouth four times daily as needed Meclizine Active 25 MG PO 4 TIMES DAILY NEEDED May 25, 2023 11:00pm melatonin 10 mg sublingual tablet (8 sources) Start: 01-02-2024 take 1 tablet by mouth at bedtime Melatonin 10 mg Tablet, Sublingual Active 10 mg PO AT BEDTIME 0 January 02, 2024 1:00am Start: 12-23-2023 End: 01-02-2024 take 1 tablet by mouth at bedtime Melatonin 3 mg Tablet Discontinued 3 mg PO AT BEDTIME 0 0 December 23, 2023 1:00am January 02, 2024 8:59am sleep meloxicam 7.5 mg oral tablet (8 sources) Nonsteroidal Anti-inflammatory Drug Start: 12-23-2023 End: 01-02-2024 take 1 tablet by mouth twice daily at mealtime Meloxicam 7.5 mg Tablet Active 7.5 mg PO TWICE DAILY WITH MEALS 60 30 0 January 02, 2024 1:00am oxyCODONE hydrochloride 5 mg oral tablet (8 sources) Opioid Agonist Start: 08-10-2024 take 1 tablet by mouth every six hours as needed for pain Oxycodone 5 mg tablet Active 5 mg PO EVERY 6 HOURS as needed for pain 20 5 0 August 10, 2024 Fracture of rib of left side Fracture of one rib, left side, initial encounter for closed fracture Start: 12-23-2023 End: 01-02-2024 take 5-10 mg by mouth every four hours as needed for pain Oxycodone 5 mg Tablet Discontinued 5 - 10 mg PO EVERY 4 HOURS NEEDED as needed for Pain Score 4-10 42 5 0 December 23, 2023 January 02, 2024 8:59am Status post total left knee replacement Other acute postprocedural pain Presence of left artificial knee joint Other acute postprocedural pain Start: 09-21-2023 End: 09-28-2023 take 1-2 tablets by mouth every four hours as needed for pain oxyCODONE 5 mg oral tablet ( IMMEDIATE release ) See Instructions, PRN as needed for pain, 1-2 tab(s) Oral q4h, # 42 tab(s), 0 Refill(s), 09/28/23 6:58:00 AM EST, Pharmacy: [facility] #[id number], Status post total right knee replacement, 165.1, cm, 09/20/23 13:47:00 EST, Height, 87.9, kg, 09/20/23 13:47:00 EST, Dosing Weight Start Date: 09/21/23 Stop Date: 09/28/23 Status: Ordered traMADol hydrochloride 50 mg oral tablet (3 sources) Opioid Agonist Start: 01-02-2024 take 1 tablet by mouth every six hours as needed for pain Tramadol 50 mg Tablet Active 50 mg PO EVERY 6 HOURS NEEDED as needed for Pain Score 1-10 28 7 0 January 02, 2024 1:00am Vitamin D3 50 mcg (2000 intl units) [...] Sig (Original) amLODIPine 5 mg oral tablet (20 sources) Dihydropyridine Calcium Channel Carlitos Start: 04-29-2020 End: 06-23-2022 take 1 tablet by mouth once daily Amlodipine 5 MG tablet Discontinued 5 mg PO DAILY 30 0 April 29, 2020 12:00am June 23, 2022 9:19am docusate sodium 50 mg / sennosides, detention 8.6 mg oral tablet (6 sources) Start: 12-23-2023 End: 01-02-2024 Sennosides-Docusat e Sodium (Stool Softener-Stimulant Laxat) 8.6-50 mg Tablet Discontinued 2 {tbl} PO TWICE A DAY 20 5 0 December 23, 2023 1:00am January 02, 2024 8:59am constipation Start: 09-21-2023 End: 09-24-2023 take 1 tablet by mouth twice daily Senokot S 50 mg-8.6 mg oral tablet Dose = 2 tab(s), Oral, BID, Take until first bowel movement, then as needed, X 3 day(s), # 12 tab(s), 0 Refill(s), Pharmacy: [facility] #[id number], 165.1, cm, 09/20/23 13:47:00 EST, Height, kg, 09/20/23 13:47:00 EST, Dosing Weight Start Date: 09/21/23 Stop Date: 09/24/23 Status: Ordered lisinopril 10 mg oral tablet (20 sources) Angiotensin Converting Enzyme Inhibitor Start: 06-23-2022 End: 01-02-2024 take 1 tablet by mouth once daily Lisinopril 10 mg tablet Discontinued 10 mg PO DAILY June 23, 2022 12:00am January 02, 2024 8:59am BP Nut.Tx.Comp. Immune Systm,Reg (Ensure Surgery) 0.08-1.4 gram-kcal/mL Liquid (5 sources) Start: 12-23-2023 End: 01-02-2024 Nut.Tx.Comp. Immune Systm,Reg (Ensure Surgery) 0.08-1.4 gram-kcal/mL Liquid Discontinued 237 mL PO 3 TIMES DAILY WITH MEALS 0 0 December 23, 2023 1:00am January 02, 2024 8:59am health maintenance Start: 12-23-2023 End: 01-02-2024 Nut.Tx.Comp. Immune Systm,Re g (Ensure Surgery) 0.08-1.4 gram-kcal/mL Liquid Discontinued 237 ML PO 3 TIMES DAILY WITH MEALS 0 December 23, 2023 12:00am January 02, 2024 7:59am Start: 12-23-2023 Nut.Tx.Comp. I mmune Systm,Reg (Ensure Surgery) 0.08-1.4 gram-kcal/mL Liquid Active 237 ML PO 3 TIMES DAILY WITH MEALS 0 December 23, 2023 12:00am Problems Active Problems Problem Classification Problem Date Documented Da te Episodic/Chronic Conditions associated with dizziness or vertigo (20 sources) Vertigo; Translations: [Dizziness and giddiness] 04-30-2020 Episodic Deficiency and other anemia (4 sources) Anemia; Translations: [Anemia, unspecified] 12-23-2023 Episodic Deficiency and other anemia (2 sources) Anemia, unspecified; Translations: [Anemia, unspecified] 12-23-2023 Episodic Delirium, dementia, and amnestic and other cognitive disorders (2 sources) Dementia; Translations: [Unspecified dementia without behavioral disturbance] 06-29-2025 Chronic Disorders of lipid metabolism (20 sources) Hyperlipidemia; Translations: [Hyperlipidemia, unspecified] Chronic E Codes: Fall (12 sources) Fall; Translations: [Unspecified fall, initial encounter] 05-24-2023 Episodic Essential hypertension (20 sources) Hypertensive disorder; Translations: [Essential (primary) hypertension] Onset: 09-20-2023 Chronic Comment on above: CONTROLLED ON MED Intracranial injury (11 sources) Concussion injury of body structure; Translations: [Concussion] 05-26-2023 Episodic Malaise and fatigue (6 sources) Asthenia; Translations: [Other malaise] 12-23-2023 Episodic Occlusion or stenosis of precerebral arteries (7 sources) Carotid artery stenosis; Translations: [Occlusion and stenosis of unspecified carotid artery] Onset: 07-05-2025 12-23-2023 Chronic Open wounds of head; neck; and trunk (12 sources) Scalp laceration; Translations: [Laceration without foreign body of scalp, initial encounter] 05-24-2023 Episodic Osteoarthritis (1 source) Osteoarthritis; Translations: [Unspecified osteoarthritis, unspecified site] Onset: 09-20-2023 Chronic Other bone disease and musculoskeletal deformities (17 sources) Postmenopausal osteopenia; Translations: [Other specified disorders of bone density and structure, unspecified site] 06-23-2022 Episodic Other bone disease and musculoskeletal deformities (6 sources) Other specified disorders of bone density and structure, unspecified site; Translations: [Disorder of bone and cartilage, unspecified] Episodic Other bone disease and musculoskeletal deformities (4 sources) Osteopenia; Translations: [Other specified disorders of bone density and structure, unspecified site] 12-23-2023 Episodic Other connective tissue disease (2 sources) Artificial knee joint present; Translations: [Presence of unspecified artificial knee joint] Onset: 09-20-2023 Chronic Other connective tissue disease (5 sources) History of total knee arthroplasty; Translations: [Presence of left artificial knee joint] 12-22-2023 Chronic Other connective tissue disease (5 sources) Presence of left artificial knee joint; Translations: [Knee joint replacement] 12-23-2023 Chronic Other fractures (2 sources) Fracture of left rib; Translations: [Fracture of one rib, left side, initial encounter for closed fracture] 08-18-2024 Episodic Other hereditary and degenerative nervous system conditions (1 source) Mild cognitive impairment, so stated; Translations: [Mild cognitive impairment of uncertain or unknown etiology] Onset: 03-06-2025 Chronic Other injuries and conditions due to external causes (12 sources) Hematoma; Translations: [Other injury of unspecified body region, initial encounter] 05-24-2023 Episodic Other nervous system disorders (4 sources) Disorder of brain; Translations: [Encephalopathy, unspecified] 12-23-2023 Chronic Other nervous system disorders (2 sources) Encephalopathy, unspecified; Translations: [Encephalopathy, unspecified] 12-23-2023 Chronic Other nervous system disorders (1 source) Impaired cognition; Translations: [Other symptoms and signs involving cognitive functions and awareness] Onset: 09-21-2023 Episodic Other nervous system disorders (5 sources) Acute postoperative pain; Translations: [Other acute postprocedural pain] 12-23-2023 Episodic Other screening for suspected conditions (not mental disorders or infectious disease) (2 sources) Other abnormal and inconclusive findings on diagnostic imaging of breast; Translations: [Encounter for screening mammogram for malignant neoplasm of breast] Onset: 06-18-2025 Episodic Residual codes; unclassified (4 sources) Edema of left lower limb; Translations: [Localized edema] 12-23-2023 Episodic Residual codes; unclassified (2 sources) Localized edema; Translations: [Edema] 12-23-2023 Episodic Skin and subcutaneous tissue infections (6 sources) Cellulitis of left knee; Translations: [Cellulitis of left lower limb] 12-23-2023 Episodic Past or Other Problems Problem Classification Problem Date Documented Da te Episodic/Chronic Other bone disease and musculoskeletal deformities (1 [...] Test Name Value Interpretation Reference Range Facility CBC W/Diff, Automatedon 06-08 Absolute Lymph 1.74 X10 3/uL Normal 0.83-4.51 [facility] Comment on above: Order Comment: Order Date: 06/28/25 Order Info: [id number] - CBCD Performed By: #### L 500.4100, L100.0100, [id number] #### [facility] [address] [place], [place], [id number] [phone] Absolute Neut 2.4 X10 3/uL Normal 2.0-7.7 [facility] Comment on above: Order Comment: Order Date: 06/28/25 Order Info: [id number] - CBCD Performed By: #### L 500.4100, L100.0100, [id number] #### [facility] [address] [place], [address] Basophils/100 WBC (Bld) 0.6 % Normal 0-1 [facility] Comment on above: Order Comment: Order Date: 06/28/25 Order Info: [id number] - CBCD Performed By: #### L 500.4100, L100.0100, [id number] #### [facility] [address] [place], [address] Eosinophils/100 WBC (Bld) 3.2 % Normal 0-5 [facility] Comment on above: Order Comment: Order Date: 06/28/25 Order Info: [id number] - CBCD Performed By: #### L 500.4100, L100.0100, [id number] #### [facility] [address] [place], [address] Erythrocyte distribution width (RBC) [Ratio] 13.8 % Normal 11.6-14.6 [facility] Comment on above: Order Comment: Order Date: 06/28/25 Order Info: [id number]- - CBCD Performed By: #### L 500.4100, L100.0100, [id number] #### [facility] [address] [place], [address] Hematocrit (Bld) [Volume fraction] 36.4 % Low 37-47 [facility] Comment on above: Order Comment: Order Date: 06/28/25 Order Info: [id number] - CBCD Performed By: #### L 500.4100, L100.0100, [id number] #### [facility] [address] [place], [address] Hemoglobin (Bld) [Mass/Vol] 12.2 g/dL Normal 12.0-15.0 [facility] Comment on above: Order Comment: Order Date: 06/28/25 Order Info: [id number] - CBCD Performed By: #### L 500.4100, L100.0100, [id number] #### [facility] [address] [place], [address] IG% 0.400 Normal 0.0-0.9 [facility] Comment on above: Order Comment: Order Date: 06/28/25 Order Info: [id number] - CBCD Result Comment: IG% - Immature Granulocytes (promyelocytes, myelocytes and metamyelocytes) > 1% indicates that a LEFT SHIFT is Present. Performed By: #### L 500.4100, L100.0100, [id number] #### [facility] [address] [place], [address] Lymphocytes/100 WBC (Bld) 37.2 % Normal 19-41 [facility] Comment on above: Order Comment: Order Date: 06/28/25 Order Info: [id number] - CBCD Performed By: #### L 500.4100, L100.0100, [id number] #### [facility] [address] [place], [address] MCH (RBC) [Entitic mass] 30.3 pg Normal 27.0-32.0 [facility] Comment on above: Order Comment: Order Date: 06/28/25 Order Info: [id number]- - CBCD Performed By: #### L 500.4100, L100.0100, [id number] #### [facility] [address] [place], [address] MCHC (RBC) [Mass/Vol] 33.5 g/dL Normal 32-36 [facility] Comment on above: Order Comment: Order Date: 06/28/25 Order Info: [id number]- - CBCD Performed By: #### L 500.4100, L100.0100, [id number] #### [facility] [address] [place], [address] MCV (RBC) [Entitic vol] 90.3 fL Normal 81-99 [facility] Comment on above: Order Comment: Order Date: 06/28/25 Order Info: [id number] - CBCD Performed By: #### L 500.4100, L100.0100, [id number] #### [facility] [address] [place], [address] Monocytes/100 WBC (Bld) 7.9 % Normal 0-10 [facility] Comment on above: Order Comment: Order Date: 06/28/25 Order Info: [id number] - CBCD Performed By: #### L 500.4100, L100.0100, [id number] #### [facility] [address] [place], [address] Neutrophils/100 WBC (Bld) 50.7 % Normal 47-70 [facility] Comment on above: Order Comment: Order Date: 06/28/25 Order Info: [id number] - CBCD Performed By: #### L 500.4100, L100.0100, [id number] #### [facility] [address] [place], [address] Nucleated RBC (Bld) [#/Vol] 0 10*3/uL Normal 0-5 [facility] Comment on above: Order Comment: Order Date: 06/28/25 Order Info: [id number] - CBCD Performed By: #### L 500.4100, L100.0100, [id number] #### [facility] [address] [place], [address] Platelet mean volume (Bld) [Entitic vol] 11.0 fL Normal 6.2-12.0 [facility] Comment on above: Order Comment: Order Date: 06/28/25 Order Info: [id number] - CBCD Performed By: #### L 500.4100, L100.0100, [id number] #### [facility] [address] [place], [address] Platelets (Bld) [#/Vol] 159 10*3/uL Normal 150-450 [facility] Comment on above: Order Comment: Order Date: 06/28/25 Order Info: [id number] - CBCD Performed By: #### L 500.4100, L100.0100, [id number] #### [facility] [address] [place], [address] RBC (Bld) [#/Vol] 4.03 10*6/uL Low 4.2-5.4 [facility] Comment on above: Order Comment: Order Date: 06/28/25 Order Info: [id number] - CBCD Performed By: #### L 500.4100, L100.0100, [id number] #### [facility] [address] [place], [address] RDW SD 45.1 fl High 35.1-43.9 [facility] Comment on above: Order Comment: Order Date: 06/28/25 Order Info: [id number] - CBCD Performed By: #### L 500.4100, L100.0100, [id number] #### [facility] [address] [place], [address] WBC (Bld) [#/Vol] 4.7 10*3/uL Normal 4.4-11.0 [facility] Comment on above: Order Comment: Order Date: 06/28/25 Order Info: [id number] - CBCD Performed By: #### L 500.4100, L100.0100, [id number] #### [facility] [address] [place], [address] Comprehensive Metabolic Prof [facility] 07-04-2025 Albumin [Mass/Vol] 4.2 g/dL Normal 3.4-4.8 [facility] Comment on above: Order Comment: Order Date: 06/28/25 Order Info: [id number] - CMP Order Info: [id number] - LIPID Performed By: #### L 500.4100, L100.0100, [id number] #### [facility] [address] [place], [address] Albumin/Globulin [Mass ratio] 1.8 {ratio} Normal 0.9-2.4 [facility] Comment on above: Order Comment: Order Date: 06/28/25 Order Info: [id number] - CMP Order Info: [id number] - LIPID Performed By: #### L 500.4100, L100.0100, [id number] #### [facility] [address] [place], [address] ALK PHOS 89 U/L Normal 35-104 [facility] Comment on above: Order Comment: Order Date: 06/28/25 Order Info: [id number] - CMP Order Info: [id number] - LIPID Performed By: #### L 500.4100, L100.0100, [id number] #### [facility] [address] [place], [address] ALT [Catalytic activity/Vol] 18 U/L Normal <=34 [facility] Comment on above: Order Comment: Order Date: 06/28/25 Order Info: [id number] - CMP Order Info: [id number] - LIPID Performed By: #### L 500.4100, L100.0100, [id number] #### [facility] [address] [place], [address] AST [Catalytic activity/Vol] 26 U/L Normal <=31 [facility] Comment on above: Order Comment: Order Date: 06/28/25 Order Info: [id number] - CMP Order Info: [id number] - LIPID Performed By: #### L 500.4100, L100.0100, [id number] #### [facility] [address] [place], [address] Bilirubin [Mass/Vol] 0.42 mg/dL Normal 0.00-1.30 [facility] Comment on above: Order Comment: Order Date: 06/28/25 Order Info: [id number] - CMP Order Info: [id number] - LIPID Performed By: #### L 500.4100, L100.0100, [id number] #### [facility] [address] [place], [address] BUN/CRE 18.1 RATIO Normal 10-20 [facility] Comment on above: Order Comment: Order Date: 06/28/25 Order Info: [id number] - CMP Order Info: [id number] - LIPID Performed By: #### L 500.4100, L100.0100, [id number] #### [facility] [address] [place], [address] Calcium [Mass/Vol] 9.5 mg/dL Normal 7.6-11.0 [facility] Comment on above: Order Comment: Order Date: 06/28/25 Order Info: [id number] - CMP Order Info: [id number] - LIPID Performed By: #### L 500.4100, L100.0100, [id number] #### [facility] [address] [place], [address] Chloride [Moles/Vol] 104 mmol/L Normal 98-108 [facility] Comment on above: Order Comment: Order Date: 06/28/25 Order Info: [id number] - CMP Order Info: [id number] - LIPID Performed By: #### L 500.4100, L100.0100, [id number] #### [facility] [address] [place], [address] CO2 [Moles/Vol] 24.6 mmol/L Normal 21.0-32.0 [facility] Comment on above: Order Comment: Order Date: 06/28/25 Order Info: [id number] - CMP Order Info: [id number] - LIPID Performed By: #### L 500.4100, L100.0100, [id number] #### [facility] [address] [place], [address] Creatinine [Mass/Vol] 1.00 mg/dL Normal 0.70-1.20 [facility] Comment on above: Order Comment: Order Date: 06/28/25 Order Info: [id number] - CMP Order Info: [id number] - LIPID Performed By: #### L 500.4100, L100.0100, [id number] #### [facility] [address] [place], [address] GAP 12 Normal 5-15 [facility] Comment on above: Order Comment: Order Date: 06/28/25 Order Info: 0786- - CMP Order Info: [id number] - LIPID Performed By: #### L 500.4100, L100.0100, L500.4050 #### [facility] [address] [place], [address] GFR/1.73 sq M.predicted among non-blacks MDRD (S/P/Bld) [Vol rate/Area] 56 mL/min/{1.73_m2} Low >60 [facility] Comment on above: Order Comment: Order Date: 06/28/25 Order Info: 07 - CMP Order Info: [id number] - LIPID Result Comment: mL/m in/1.73m2 CKD-EPI Creatinine Equation (2020) Performed By: #### L 500.4100, L100.0100, L500.4050 #### [facility] [address] [place], [address] Globulin (S) [Mass/Vol] 2.3 g/dL Normal 2.2-4.2 [facility] Comment on above: Order Comment: Order Date: 06/28/25 Order Info: 0786- - CMP Order Info: [id number] - LIPID Performed By: #### L 500.4100, L100.0100, L500.4050 #### [facility] [address] [place], [address] Glucose [Mass/Vol] 103 mg/dL High 70-99 [facility] Comment on above: Order Comment: Order Date: 06/28/25 Order Info: 0786- - CMP Order Info: [id number] - LIPID Performed By: #### L 500.4100, L100.0100, L500.4050 #### [facility] [address] [place], [address] Potassium [Moles/Vol] 4.1 mmol/L Normal 3.3-5.1 [facility] Comment on above: Order Comment: Order Date: 06/28/25 Order Info: [id number] - CMP Order Info: [id number] - LIPID Performed By: #### L 500.4100, L100.0100, L500.4050 #### [facility] [address] [place], [address] Sodium [Moles/Vol] 141 mmol/L Normal 133-145 [facility] Comment on above: Order Comment: Order Date: 06/28/25 Order Info: [id number] - CMP Order Info: [id number] - LIPID Performed By: #### L 500.4100, L100.0100, L500.4050 #### [facility] [address] [place], [address] T PROT 6.6 g/dL Normal 5.9-8.4 [facility] Comment on above: Order Comment: Order Date: 06/28/25 Order Info: 0786- - CMP Order Info: [id number] - LIPID Performed By: #### L 500.4100, L100.0100, L500.4050 #### [facility] [address] [place], [address] Urea nitrogen [Mass/Vol] 18 mg/dL Normal 4-19 [facility] Comment on above: Order Comment: Order Date: 06/28/25 Order Info: [id number] - CMP Order Info: [id number] - LIPID Performed By: #### L 500.4100, L100.0100, L500.4050 #### [facility] [address] [place], [address] Lipid Profileon 07-04-2025 CHOL:HDL 2.[address] [facility] Comment on above: Order Comment: Order Date: 06/28/25 Order Info: [id number] - CMP Order Info: [id number] - LIPID Performed By: #### L 500.4100, L100.0100, L500.4050 #### [facility] [address] [place], [address] Cholesterol [Mass/Vol] 174 mg/dL Normal <=200 [facility] Comment on above: Order Comment: Order Date: 06/28/25 Order Info: 0786-1 - CMP Order Info: [id number] - LIPID Result Comment: Chol esterol level, Desirable <200 mg/dL Borderline high cholesterol 200-239 mg/dL High cholesterol >=240 mg/dL Recommendations of the NCEP Adult Treatment Panel for the following risk-cutoff thresholds for the [place] population. Performed By: #### L 500.4100, L100.0100, L500.4050 #### [facility] [address] [place], [address] Cholesterol in HDL [Mass/Vol] 72 mg/dL Normal [facility] Comment on above: Order Comment: Order Date: 06/28/25 Order Info: 0786- - CMP Order Info: [id number] - LIPID Result Comment: Hallie onal Cholesterol Education Program (NCEP) guidelines: <40 mg/dL: Low HDL-cholesterol (major risk factor for CHD) >= 60 mg/dL: High HDL-cholesterol (negative risk factor for CHD) HDL-cholesterol is affected by a number of factors, e.g. smoking, exercise, hormones, sex and age. Performed By: #### L 500.4100, L100.0100, L500.4050 #### [facility] [address] [place], [address] Cholesterol in LDL [Mass/Vol] 58 mg/dL Normal [facility] Comment on above: Order Comment: Order Date: 06/28/25 Order Info: 0786-1 - CMP Order Info: [id number] - LIPID Result Comment: Bord sgkgql=598-279 mg/dL Higher Pazx=328 mg/dL or greater Friedwald Equation for LDL-C Performed By: #### L 500.4100, L100.0100, L500.4050 #### [facility] [address] [place], [address] Cholesterol in VLDL [Mass/Vol] 44 mg/dL High 5-40 [facility] Comment on above: Order Comment: Order Date: 06/28/25 Order Info: 0786-1 - CMP Order Info: [id number] - LIPID Performed By: #### L 500.4100, L100.0100, L500.4050 #### [facility] [address] [place], [address] Triglyceride [Mass/Vol] 218 mg/dL High [facility] Comment on above: Order Comment: Order Date: 06/28/25 Order Info: 0786-1 - CMP Order Info: [id number] - LIPID Result Comment: The drugs N-Acetylcysteine and Metamizole may falsely depress this assay. Normal range: <150 mg/dL Borderline High: 150-199 mg/dL High: 200-499 mg/dL Very High: >500 mg/dL Performed By: #### L 500.4100, L100.0100, L500.4050 #### [facility] [address] [place], [address] Urinalysis, Completeon 07-04 BACTERIA 4+ /hpf Normal None Seen [facility] Comment on above: Order Comment: CLEAN CATCH Performed By: #### L 400.0001, L506.1001 #### [facility] [address] [place], [address] RBC 0-5 SEEN Normal 0-5 [facility] Comment on above: Order Comment: CLEAN CATCH Performed By: #### L 400.0001, L506.1001 #### [facility] [address] [place], [address] WBC 5-10 SEEN Normal 0-5 [facility] Comment on above: Order Comment: CLEAN CATCH Performed By: #### L 400.0001, L506.1001 #### [facility] [address] [place], [address] EPI,SQUAMOUS 0 SEEN Normal 5-10 [facility] Comment on above: Order Comment: CLEAN CATCH Performed By: #### L 400.0001, L506.1001 #### [facility] [address] [place], [address] Mucus Ql (Urine sed) 0 SEEN Normal [facility] Comment on above: Order Comment: CLEAN CATCH Performed By: #### L 400.0001, L506.1001 #### [facility] [address] [place], [address] Vitamin D,25 Hydroxyon 07-04 Vitamin D 25-OH 28.6 ng/mL Low 30-100 [facility] Comment on above: Order Comment: Order Date: 06/28/25 Order Info: [id number] - CMP Order Info: [id number] - LIPID Result Comment: Cindi min D Status Deficiency: <20 ng/mL (50nmol/L) Insufficiency: 20-30 ng/mL (50-75 nmol/L) Sufficiency: 30-100 ng/mL (75-250 nmol/L) Toxicity: >100 ng/mL (>250 nmol/L) Performed By: #### L 400.0001, L506.1001 #### [facility] [address] [place], [address] Breast Limited Unilateralon 06-13-2025 Breast Limited Unilateral [facility] Services [address] [place] [address] Breast Limited Unilateral MR#: [id number] Acct: [id number] Name: FRED MON Rep #: [id number] : 1940 F 84 From: Fady crane MD PCP: Dr. Alex Giang MD Status: REG CLI Study: Breast Limited Unilateral Date of Exam: Exam# [id number] Ordering Dr: Alex Giang MD PROCEDURE: BREAST LIMITED UNILATERAL 06/13/2025 REASON FOR EXAM: F, Age 84 y/o , ABN MAMM Abnormal diagnostic mammogram. COMPARISON: Prior mammogram done earlier in the day.. TECHNIQUE: BREAST LIMITED UNILATERAL. Imaging of the lateral upper aspect of the right breast was examined with ultrasound. FINDINGS: There is a 3 mm x 3 mm x 2 mm cyst at the 10 o'clock position of the breast at 4 cm from the nipple. There is a 3 mm x 3 mm x 3 mm cyst at the 10 o'clock position of the breast at 2 cm from the nipple. There is also evidence of a 4 mm x 4 mm x 5 mm cyst at the 11 o'clock position of the breast at 3 cm from the nipple. US/Breast Limited Unilateral IMPRESSION: The mammographic abnormality corresponds to 3, adjacent subcentimeter cysts as described. BI-RADS 2: BENIGN RECOMMENDATION: Routine annual follow-up in 1 Year Reading Location: [id number] CC: Dr. Alex Giang MD Extrusion Die Coordinator: Signed Normal [facility] Breast imaging reportOrdered By: Fady Ryder on 06-13-2025 Study report [facility] Imaging Services [address] [place] [address] [id number] DIAG MAMM W/CAD, UNILAT MR#: [id number] Acct: [id number] Name: FRED MON Rep #: [id number] : 1940 F 84 From: Ric Ryder MD PCP: Dr. Alex Giang MD Status: RE G CLI Study:DIAG MAMM W/CAD, UNILAT Date of Exam: 06/13/25 Exam# [id number] Ordering Dr: Alex Giang MD EXAM: DIAG MAMM W/CAD, UNILAT 06/13/2025 CLINICAL HISTORY: F, Age 84 y/o , ABN MAMM screening mammogram. TECHNIQUE: DIAG MAMM W/CAD, UNILAT. COMPARISON: Prior exam(s) dated June 10.. FINDINGS: TISSUE DENSITY: There are scattered areas of fibroglandular density. Bilateral Breast Mammographic Findings: No significant masses, calcifications or other abnormalities are identified. Once again, 3 tiny subcentimeter nodular densities are seen in the anterior upper lateral aspect of the right breast. Sonographic correlation recommended. BI/DIAG MAMM W/CAD, UNILAT IMPRESSION: Persistent tiny nodular densities as described. Targeted sonographic correlation recommended. OVERALL FINAL ASSESSMENT BI-RADS 0: INCOMPLETE - NEED ADDITIONAL IMAGING EVALUATION. RECOMMENDATION: Ultrasound Recommended A letter with findings and recommendations will be mailed to the patient. Reading Location: [id number] CC: Dr. Alex Giang MD ~ Extrusion Die Coordinator: Signed [facility] DIAG MAMM W/CAD, UNILATon DIAG MAMM W/CAD, UNILAT [facility] Imaging Services [address] [place] [id number] DIAG MAMM W/CAD, UNILAT MR#: [id number] Acct: [id number] Name: FRED MON Rep #: [id number] : 1940 F 84 From: Fady crane MD PCP: Dr. Alex Giang MD Status: [facility] Study: DIAG MAMM W/CAD, UNILAT Date of Exam: 06/13/25 Exam# [id number] Ordering Dr: Alex Giang MD EXAM: DIAG MAMM W/CAD, UNILAT 06/13/2025 CLINICAL HISTORY: F, Age 84 y/o , ABN MAMM screening mammogram. TECHNIQUE: DIAG MAMM W/CAD, UNILAT. COMPARISON: Prior exam(s) dated June 10.. FINDINGS: TISSUE DENSITY: There are scattered areas of fibroglandular density. Bilateral Breast Mammographic Findings: No significant masses, calcifications or other abnormalities are identified. Once again, 3 tiny subcentimeter nodular densities are seen in the anterior upper lateral aspect of the right breast. Sonographic correlation recommended. BI/DIAG MAMM W/CAD, UNILAT IMPRESSION: Persistent tiny nodular densities as described. Targeted sonographic correlation recommended. OVERALL FINAL ASSESSMENT BI-RADS 0: INCOMPLETE - NEED ADDITIONAL IMAGING EVALUATION. RECOMMENDATION: Ultrasound Recommended A letter with findings and recommendations will be mailed to the patient. Reading Location: [id number] CC: Dr. Alex Giang MD Extrusion Die Coordinator: Signed Normal [facility] Breast imaging reportOrdered By: Sharon Vanessa on 06-10-2025 Study report [facility] Imaging Services [address] [place] [address] SCRN MAMM (CAD)W/CHRISTIANO BILAT MR#: [id number] Acct: [id number] Name: FRED MON Rep #: [id number] : 1940 F 84 From: Eduard Vanessa DO PCP: Dr. Alex Giang MD Status: RE G CLI Study:SCRN MAMM (CAD)W/CHRISTIANO BILAT Date of Exa m: 06/10/25 Exam# [id number] Ordering Dr: Alex Giang MD EXAM: SCRN MAMM (CAD)W/CHRISTIANO BILAT DATE: 06/10/2025 CLINICAL HISTORY: F, Age 84 y/o , SCREENING FOR BREAST CANCER TECHNIQUE: SCRN MAMM (CAD)W/CHRISTIANO BILAT COMPARISON: Prior exam(s) dated 07/04/2023 and 06/30/2022. FINDINGS: TISSUE DENSITY: There are scattered areas of fibroglandular density. Bilateral Breast Mammographic Findings: There are 3, well-circumscribed, low density masses in the superior outer aspectof the right breast which require additional workup. The largest mass measures 5 mm. Benign-appearing macrocalcifications, round microcalcifications, and vascular calcifications are seen in the right breast. Stable nodular densities are seen. Benign vascular calcifications, macrocalcifications and round microcalcifications are seen in the left breast. A stable 4 mm partially obscured isodense mass in the inferior medial aspect of the left breast is noted. No suspicious masses, suspicious group of microcalcifications, architectural distortion or secondary sign of malignancy is identified in the left breast. BI/SCRN MAMM (CAD)W/CHRITSIANO BILAT IMPRESSION: There are 3, well-circumscribed, isodense masses in the superior outer aspect ofthe right breast which require additional workup. The patient should return for an LM view of the right breast as well asspot compression CC and spot compression MLO views of the right breast masses. An ultrasound will also most be needed. OVERALL FINAL ASSESSMENT BI-RADS 0: INCOMPLETE - NEED ADDITIONAL IMAGING EVALUATION. RECOMMENDATION: Additional Views obtained/call backs A letter with findings and recommendations will be mailed to the patient. Reading Location: [id number] CC: Dr. Alex Giang MD ~ Extrusion Die Coordinator: Signed [facility] SCRN MAMM (CAD)W/CHRISTIANO BILATo n 06-10-2025 SCRN MAMM (CAD)W/CHRISTIANO BILAT [facility] Imaging Services [address] [place] [address] [id number] SCRN MAMM (CAD)W/CHRISTIANO BILAT MR#: [id number] Acct: [id number] Name: FRED MON Rep #: [id number] : 1940 F 84 From: Sharon Sage PCP: Dr. Alex Giang MD Status: REG CLI Study: SCRN MAMM (CAD)W/CHRISTIANO BILAT Date of Exam: 03/01 Exam# [id number] Ordering Dr: Alex Giang MD EXAM: SCRN MAMM (CAD)W/CHRISTIANO BILAT DATE: 06/10/2025 CLINICAL HISTORY: F, Age 84 y/o , SCREENING FOR BREAST CANCER TECHNIQUE: SCRN MAMM (CAD)W/CHRISTIANO BILAT COMPARISON: Prior exam(s) dated 07/04/2023 and 06/30/2022. FINDINGS: TISSUE DENSITY: There are scattered areas of fibroglandular density. Bilateral Breast Mammographic Findings: There are 3, well-circumscribed, low density masses in the superior outer aspect of the right breast which require additional workup. The largest mass measures 5 mm. Benign-appearing macrocalcifications, round microcalcifications, and vascular calcifications are seen in the right breast. Stable nodular densities are seen. Benign vascular calcifications, macrocalcifications and round microcalcifications are seen in the left breast. A stable 4 mm partially obscured isodense mass in the inferior medial aspect of the left breast is noted. No suspicious masses, suspicious group of microcalcifications, architectural distortion or secondary sign of malignancy is identified in the left breast. BI/SCRN MAMM (CAD)W/CHRISTIANO BILAT IMPRESSION: There are 3, well-circumscribed, isodense masses in the superior outer aspect of the right breast which require additional workup. The patient should return for an LM view of the right breast as well as spot compression CC and spot compression MLO views of the right breast masses. An ultrasound will also most be needed. OVERALL FINAL ASSESSMENT BI-RADS 0: INCOMPLETE - NEED ADDITIONAL IMAGING EVALUATION. RECOMMENDATION: Additional Views obtained/call backs A letter with findings and recommendations will be mailed to the patient. Reading Location: [facility] CC: Dr. Alex Giang MD Extrusion Die Coordinator: Signed Normal [facility] Anion gap in Serum or Plasma Ordered By: Alex Giang on 02-27-2025 Anion gap [Moles/Vol] 12 mmol/L 5-15 [facility] BUN/creatinine ratioOrdered By: Alex Giang on 02-27-2025 Urea nitrogen/Creatinine [Mass ratio] 21.3 mg/mg High 10-20 [facility] Bilirubin, totalOrdered By: Alex Giang on 02-27-2025 Bilirubin [Mass/Vol] 0.43 mg/dL 0.00-1.30 [facility] CBC-Complete Blood Cnt No Di ffon 02-27-2025 Erythrocyte distribution width (RBC) [Ratio] 13.7 % Normal 11.6-14.6 [facility] Comment on above: Performed By: #### L 500.4100, L100.0100, L500.4050 #### [facility] [address] [place], [address] Hematocrit (Bld) [Volume fraction] 36.4 % Low 37-47 [facility] Comment on above: Performed By: #### L 500.4100, L100.0100, L500.4050 #### [facility] [address] [place], [address] Hemoglobin (Bld) [Mass/Vol] 12.1 g/dL Normal 12.0-15.0 [facility] Comment on above: Performed By: #### L 500.4100, L100.0100, L500.4050 #### [facility] [address] [place], [address] MCH (RBC) [Entitic mass] 30.3 pg Normal 27.0-32.0 [facility] Comment on above: Performed By: #### L 500.4100, L100.0100, L500.4050 #### [facility] [address] [place], [address] MCHC (RBC) [Mass/Vol] 33.2 g/dL Normal 32-36 [facility] Comment on above: Performed By: #### L 500.4100, L100.0100, L500.4050 #### [facility] [address] [place], [address] MCV (RBC) [Entitic vol] 91.0 fL Normal 81-99 [facility] Comment on above: Performed By: #### L 500.4100, L100.0100, L500.4050 #### [facility] [address] [place], [address] Platelet mean volume (Bld) [Entitic vol] 10.7 fL Normal 6.2-12.0 [facility] Comment on above: Performed By: #### L 500.4100, L100.0100, L500.4050 #### [facility] [address] [place], [address] Platelets (Bld) [#/Vol] 177 10*3/uL Normal 150-450 [facility] Comment on above: Performed By: #### L 500.4100, L100.0100, L500.4050 #### [facility] [address] [place], [address] RBC (Bld) [#/Vol] 4.00 10*6/uL Low 4.2-5.4 [facility] Comment on above: Performed By: #### L 500.4100, L100.0100, L500.4050 #### [facility] [address] [place], [address] RDW SD 46.1 fl High 35.1-43.9 [facility] Comment on above: Performed By: #### L 500.4100, L100.0100, L500.4050 #### [facility] [address] [place], [address] WBC (Bld) [#/Vol] 4.9 10*3/uL Normal 4.4-11.0 [facility] Comment on above: Performed By: #### L 500.4100, L100.0100, L500.4050 #### [facility] [address] [place], [address] Carbon dioxide, total [Moles /volume] in Central venous bloodOrdered By: Alex Giang on 02-27-2025 CO2 [Moles/Vol] 24.0 mmol/L 21.0-32.0 [facility] Chloride assayOrdered By: Ina Giang on 02-27-2025 Chloride [Moles/Vol] 105 mmol/L 98-108 [facility] Comprehensive Metabolic Prof ilon 02-27-2025 Albumin [Mass/Vol] 4.3 g/dL Normal 3.4-4.8 [facility] Comment on above: Performed By: #### L 500.4100, L100.0100, L500.4050 #### [facility] [address] [place], [address] Albumin/Globulin [Mass ratio] 1.8 {ratio} Normal 0.9-2.4 [facility] Comment on above: Performed By: #### L 500.4100, L100.0100, L500.4050 #### [facility] [address] [place], [address] ALK PHOS 88 U/L Normal 35-104 [facility] Comment on above: Performed By: #### L 500.4100, L100.0100, L500.4050 #### [facility] [address] [place], [address] ALT [Catalytic activity/Vol] 13 U/L Normal <=34 [facility] Comment on above: Performed By: #### L 500.4100, L100.0100, L500.4050 #### [facility] [address] [place], [address] AST [Catalytic activity/Vol] 20 U/L Normal <=31 [facility] Comment on above: Performed By: #### L 500.4100, L100.0100, L500.4050 #### [facility] [address] [place], [address] Bilirubin [Mass/Vol] 0.43 mg/dL Normal 0.00-1.30 [facility] Comment on above: Performed By: #### L 500.4100, L100.0100, L500.4050 #### [facility] [address] [place], [address] BUN/CRE 21.3 RATIO High 10-20 [facility] Comment on above: Performed By: #### L 500.4100, L100.0100, L500.4050 #### [facility] [address] [place], [address] Calcium [Mass/Vol] 9.6 mg/dL Normal 7.6-11.0 [facility] Comment on above: Performed By: #### L 500.4100, L100.0100, L500.4050 #### [facility] [address] [place], [address] Chloride [Moles/Vol] 105 mmol/L Normal 98-108 [facility] Comment on above: Performed By: #### L 500.4100, L100.0100, L500.4050 #### [facility] [address] [place], [address] CO2 [Moles/Vol] 24.0 mmol/L Normal 21.0-32.0 [facility] Comment on above: Performed By: #### L 500.4100, L100.0100, L500.4050 #### [facility] [address] [place], [address] Creatinine [Mass/Vol] 0.85 mg/dL Normal 0.70-1.20 [facility] Comment on above: Performed By: #### L 500.4100, L100.0100, L500.4050 #### [facility] [address] [place], [address] GAP 12 Normal 5-15 [facility] Comment on above: Performed By: #### L 500.4100, L100.0100, L500.4050 #### [facility] [address] [place], [address] GFR/1.73 sq M.predicted among non-blacks MDRD (S/P/Bld) [Vol rate/Area] 68 mL/min/{1.73_m2} Normal >60 [facility] Comment on above: Result Comment: mL/m in/1.73m2 CKD-EPI Creatinine Equation (2020) Performed By: #### L 500.4100, L100.0100, L500.4050 #### [facility] [address] [place], [address] Globulin (S) [Mass/Vol] 2.4 g/dL Normal 2.2-4.2 [facility] Comment on above: Performed By: #### L 500.4100, L100.0100, L500.4050 #### [facility] [address] [place], [address] Glucose [Mass/Vol] 99 mg/dL Normal 70-99 [facility] Comment on above: Performed By: #### L 500.4100, L100.0100, L500.4050 #### [facility] [address] [place], [address] Potassium [Moles/Vol] 3.7 mmol/L Normal 3.3-5.1 [facility] Comment on above: Performed By: #### L 500.4100, L100.0100, L500.4050 #### [facility] [address] [place], [address] Sodium [Moles/Vol] 141 mmol/L Normal 133-145 [facility] Comment on above: Performed By: #### L 500.4100, L100.0100, L500.4050 #### [facility] [address] [place], [address] T PROT 6.7 g/dL Normal 5.9-8.4 [facility] Comment on above: Performed By: #### L 500.4100, L100.0100, L500.4050 #### [facility] [address] [place], [address] Urea nitrogen [Mass/Vol] 18 mg/dL Normal 4-19 [facility] Comment on above: Performed By: #### L 500.4100, L100.0100, L500.4050 #### [facility] [address] [place], [address] Erythrocyte distribution wid th ratioOrdered By: Alex Giang on 02-27-2025 Erythrocyte distribution width (RBC) [Ratio] 13.7 % 11.6-14.6 [facility] Erythrocyte distribution wid th standard deviationOrdered By: Alex Giang on 02-27-2025 Erythrocyte distribution width (RBC) [Ratio] 46.1 fl High 35.1-43.9 [facility] Glomerular filtration rate ( GFR) estimation/1.73 sq m using serum, plasma, or whole bOrdered By: Alex Giang on 02-27-2025 GFR/1.73 sq M.predicted among non-blacks MDRD (S/P/Bld) [Vol rate/Area] 68 mL/min/{1.73_m2} >60 [facility] Comment on above: mL/min/1.73m2 CKD-EP I Creatinine Equation (2020) Hematocrit Auto (Bld) [Volum e fraction]Ordered By: Alxe Giang on 02-27-2025 Hematocrit (Bld) [Volume fraction] 36.4 % Low 37-47 [facility] Hemoglobin measurementOrdere d By: Alex Giang on 02-27-2025 Hemoglobin (Bld) [Mass/Vol] 12.1 g/dL 12.0-15.0 [facility] - Chemistry and C hemistry - challengeOrdered By: Alex Giang on 02-27-2025 AST [Catalytic activity/Vol] 20 U/L <32 [facility] MCV (mean corpuscular volume ) determinationOrdered By: Alex Giang on 02-27-2025 MCV (RBC) [Entitic vol] 91.0 fL 81-99 [facility] Mean corpuscular hemoglobin (MCH) determinationOrdered By: Alex Giang on 02-27-2025 MCH (RBC) [Entitic mass] 30.3 pg 27.0-32.0 [facility] Mean corpuscular hemoglobin concentration (MCHC) determinationOrdered By: Alex Giang on 02-27-2025 MCHC (RBC) [Mass/Vol] 33.2 g/dL 32-36 [facility] Mean platelet volume determi nationOrdered By: Alex Giang on 02-27-2025 Platelet mean volume (Bld) [Entitic vol] 10.7 fL 6.2-12.0 [facility] Platelet countOrdered By: Ina Giang on 02-27-2025 Platelets (Bld) [#/Vol] 177 10*3/uL 150-450 [facility] Potassium measurement (mass/ volume)Ordered By: Alex Giang on 02-27-2025 Potassium (Unsp spec) [Mass/Vol] 3.7 mmol/L 3.3-5.1 [facility] RBC Auto (Bld) [#/Vol]Ordere d By: Alex Giang on 02-27-2025 RBC (Bld) [#/Vol] 4.00 10*6/uL Low 4.2-5.4 [facility] Serum creatinine measurement (mass/volume)Ordered By: Alex Giang on 02-27-2025 Creatinine [Mass/Vol] 0.85 mg/dL 0.70-1.20 [facility] Serum globulin measurementOr dered By: Alex Giang on 02-27-2025 Globulin (S) [Mass/Vol] 2.4 g/dL 2.2-4.2 [facility] Serum glucose measurement (m ass/volume)Ordered By: Alex Giang on 02-27-2025 Glucose [Mass/Vol] 99 mg/dL 70-99 [facility] Serum or plasma alanine redmond otransferase (ALT) measurementOrdered By: Alex Giang on 02-27-2025 ALT [Catalytic activity/Vol] 13 U/L <35 [facility] Serum or plasma albumin josie urement (mass/volume)Ordered By: Alex Giang on 02-27-2025 Albumin [Mass/Vol] 4.3 g/dL 3.4-4.8 [facility] Serum or plasma albumin/glob ulin mass ratioOrdered By: Alex Giang on 02-27-2025 Albumin/Globulin [Mass ratio] 1.8 {ratio} 0.9-2.4 [facility] Serum or plasma alkaline lucita sphatase measurementOrdered By: Alex Giang on 02-27-2025 ALP [Catalytic activity/Vol] 88 U/L 35-104 [facility] Serum or plasma calcium josie urement (mass/volume)Ordered By: Alex Giang on 02-27-2025 Calcium [Mass/Vol] 9.6 mg/dL 7.6-11.0 [facility] Serum or plasma urea nitroge n measurement (mass/volume)Ordered By: Alex Giang on 02-27-2025 Urea nitrogen [Mass/Vol] 18 mg/dL 4-19 [facility] Sodium levelOrdered By: Alex Giang on 02-27-2025 Sodium [Moles/Vol] 141 mmol/L 133-145 [facility] TSH DL <= 0.005 mIU/L QnOrde red By: Alex Giang on 02-27-2025 TSH Qn 1.630 uIU/mL 0.300-4.200 [facility] Thyroid Stim Hormone (TSH)on 02-27-2025 TSH 1.630 uIU/mL Normal 0.300-4.200 [facility] Comment on above: Performed By: #### L 500.4100, L100.0100, L500.4050 #### [facility] [address] [place], [place], [id number] Total proteinOrdered By: Andre Giang on 02-27-2025 Protein [Mass/Vol] 6.7 g/dL 5.9-8.4 [facility] Vitamin B12on 02-27-2025 Cobalamin (Vitamin B12) [Mass/Vol] 337 pg/mL Normal 180-914 [facility] Comment on above: Performed By: #### L 500.4100, L100.0100, L500.4050 #### [facility] [address] [place], [address] Vitamin B12 ser/plasOrdered By: Alex Giang on 02-27-2025 Cobalamin (Vitamin B12) [Mass/Vol] 337 pg/mL 180-914 [facility] Vitamin D,25 Hydroxyon 02-27 Vitamin D 25-OH 28.0 ng/mL Low 30-100 [facility] Comment on above: Result Comment: Cindi min D Status Deficiency: <20 ng/mL (50nmol/L) Insufficiency: 20-30 ng/mL (50-75 nmol/L) Sufficiency: 30-100 ng/mL (75-250 nmol/L) Toxicity: >100 ng/mL (>250 nmol/L) Performed By: #### L 500.4100, L100.0100, L500.4050 #### [facility] [address] [place], [address] White blood cell (WBC) count Ordered By: Alex Giang on 02-27-2025 WBC (Bld) [#/Vol] 4.9 10*3/uL 4.4-11.0 [facility] CBC W/Diff, Automatedon 11-0 Absolute Lymph 1.71 X10 3/uL Normal 0.83-4.51 [facility] Comment on above: Performed By: #### L 500.4100, L100.0100, L500.4050 #### [facility] [address] [place], [address] Absolute Neut 2.5 X10 3/uL Normal 2.0-7.7 [facility] Comment on above: Performed By: #### L 500.4100, L100.0100, L500.4050 #### [facility] [address] [place], [address] Basophils/100 WBC (Bld) 1.0 % Normal 0-1 [facility] Comment on above: Performed By: #### L 500.4100, L100.0100, L500.4050 #### [facility] [address] [place], [address] Eosinophils/100 WBC (Bld) 1.3 % Normal 0-5 [facility] Comment on above: Performed By: #### L 500.4100, L100.0100, L500.4050 #### [facility] [address] [place], [address] Erythrocyte distribution width (RBC) [Ratio] 13.8 % Normal 11.6-14.6 [facility] Comment on above: Performed By: #### L 500.4100, L100.0100, L500.4050 #### [facility] [address] [place], [address] Hematocrit (Bld) [Volume fraction] 38.5 % Normal 37-47 [facility] Comment on above: Performed By: #### L 500.4100, L100.0100, L500.4050 #### [facility] [address] [place], [address] Hemoglobin (Bld) [Mass/Vol] 13.1 g/dL Normal 12.0-15.0 [facility] Comment on above: Performed By: #### L 500.4100, L100.0100, L500.4050 #### [facility] [address] [place], [address] IG% 0.200 Normal 0.0-0.9 [facility] Comment on above: Result Comment: IG% - Immature Granulocytes (promyelocytes, myelocytes and metamyelocytes) > 1% indicates that a LEFT SHIFT is Present. Performed By: #### L 500.4100, L100.0100, L500.4050 #### [facility] [address] [place], [address] Lymphocytes/100 WBC (Bld) 35.8 % Normal 19-41 [facility] Comment on above: Performed By: #### L 500.4100, L100.0100, L500.4050 #### [facility] [address] [place], [address] MCH (RBC) [Entitic mass] 30.0 pg Normal 27.0-32.0 [facility] Comment on above: Performed By: #### L 500.4100, L100.0100, L500.4050 #### [facility] [address] [place], [address] MCHC (RBC) [Mass/Vol] 34.0 g/dL Normal 32-36 [facility] Comment on above: Performed By: #### L 500.4100, L100.0100, L500.4050 #### [facility] [address] [place], [address] MCV (RBC) [Entitic vol] 88.1 fL Normal 81-99 [facility] Comment on above: Performed By: #### L 500.4100, L100.0100, L500.4050 #### [facility] [address] [place], [address] Monocytes/100 WBC (Bld) 9.6 % Normal 0-10 [facility] Comment on above: Performed By: #### L 500.4100, L100.0100, L500.4050 #### [facility] [address] [place], [address] Neutrophils/100 WBC (Bld) 52.1 % Normal 47-70 [facility] Comment on above: Performed By: #### L 500.4100, L100.0100, L500.4050 #### [facility] [address] [place], [address] Nucleated RBC (Bld) [#/Vol] 0 10*3/uL Normal 0-5 [facility] Comment on above: Performed By: #### L 500.4100, L100.0100, L500.4050 #### [facility] [address] [place], [address] Platelet mean volume (Bld) [Entitic vol] 10.7 fL Normal 6.2-12.0 [facility] Comment on above: Performed By: #### L 500.4100, L100.0100, L500.4050 #### [facility] [address] [place], [address] Platelets (Bld) [#/Vol] 191 10*3/uL Normal 150-450 [facility] Comment on above: Performed By: #### L 500.4100, L100.0100, L500.4050 #### [facility] [address] [place], [address] RBC (Bld) [#/Vol] 4.37 10*6/uL Normal 4.2-5.4 [facility] Comment on above: Performed By: #### L 500.4100, L100.0100, L500.4050 #### [facility] [address] [place], [address] RDW SD 44.5 fl High 35.1-43.9 [facility] Comment on above: Performed By: #### L 500.4100, L100.0100, L500.4050 #### [facility] [address] [place], [address] WBC (Bld) [#/Vol] 4.8 10*3/uL Normal 4.4-11.0 [facility] Comment on above: Performed By: #### L 500.4100, L100.0100, L500.4050 #### [facility] [address] [place], [address] Comprehensive Metabolic Prof [facility] 09-13-2024 Albumin [Mass/Vol] 3.8 g/dL Normal 3.2-5.0 [facility] Comment on above: Order Comment: Order Date: 06/28/25 Order Info: [id number] - CMP Order Info: [id number] - LIPID Performed By: #### L 500.4100, L100.0100, L500.4050 #### [facility] [address] [place], [address] Albumin/Globulin [Mass ratio] 1.2 {ratio} Normal 0.9-2.4 [facility] Comment on above: Order Comment: Order Date: 06/28/25 Order Info: [id number] - CMP Order Info: [id number] - LIPID Performed By: #### L 500.4100, L100.0100, L500.4050 #### [facility] [address] [place], [address] ALK P 105 U/L Normal 45-117 [facility] Comment on above: Order Comment: Order Date: 06/28/25 Order Info: [id number] - CMP Order Info: [id number] - LIPID Performed By: #### L 500.4100, L100.0100, L500.4050 #### [facility] [address] [place], [address] ALT [Catalytic activity/Vol] 19 U/L Normal 13-56 [facility] Comment on above: Order Comment: Order Date: 06/28/25 Order Info: [id number]- - CMP Order Info: [id number] - LIPID Performed By: #### L 500.4100, L100.0100, L500.4050 #### [facility] [address] [place], [address] AST [Catalytic activity/Vol] 17 U/L Normal 15-37 [facility] Comment on above: Order Comment: Order Date: 06/28/25 Order Info: [id number]- - CMP Order Info: [id number] - LIPID Performed By: #### L 500.4100, L100.0100, L500.4050 #### [facility] [address] [place], [address] Bilirubin [Mass/Vol] 0.60 mg/dL Normal 0.20-1.00 [facility] Comment on above: Order Comment: Order Date: 06/28/25 Order Info: [id number] - CMP Order Info: [id number] - LIPID Result Comment: For patients on eltrombopag therapy, use of Dimension [place] TBIL is not recommended. Performed By: #### L 500.4100, L100.0100, L500.4050 #### [facility] [address] [place], [address] BUN/CRE 21.1 RATIO High 10-20 [facility] Comment on above: Order Comment: Order Date: 06/28/25 Order Info: [id number] - CMP Order Info: [id number] - LIPID Performed By: #### L 500.4100, L100.0100, L500.4050 #### [facility] [address] [place], [address] CA,Total 9.5 mg/dL Normal 8.5-10.1 [facility] Comment on above: Order Comment: Order Date: 06/28/25 Order Info: 07- - CMP Order Info: [id number] - LIPID Performed By: #### L 500.4100, L100.0100, L500.4050 #### [facility] [address] [place], [address] Chloride [Moles/Vol] 106 mmol/L Normal 98-107 [facility] Comment on above: Order Comment: Order Date: 06/28/25 Order Info: [id number] - CMP Order Info: [id number] - LIPID Performed By: #### L 500.4100, L100.0100, L500.4050 #### [facility] [address] [place], [address] CO2 [Moles/Vol] 25.0 mmol/L Normal 21.0-32.0 [facility] Comment on above: Order Comment: Order Date: 06/28/25 Order Info: [id number]- - CMP Order Info: [id number] - LIPID Performed By: #### L 500.4100, L100.0100, L500.4050 #### [facility] [address] [place], [address] Creatinine [Mass/Vol] 0.81 mg/dL Normal 0.55-1.02 [facility] Comment on above: Order Comment: Order Date: 06/28/25 Order Info: [id number] - CMP Order Info: [id number] - LIPID Result Comment: The validity of the calculated GFR GFRAA in patients over 70 years has not been determined. Clinical correlation is essential. Performed By: #### L 500.4100, L100.0100, L500.4050 #### [facility] [address] [place], [address] EST GFR - AA 87 mL/min Normal >60 [facility] Comment on above: Order Comment: Order Date: 06/28/25 Order Info: [id number] - CMP Order Info: [id number] - LIPID Result Comment: Afri can [place] GFR Calc Performed By: #### L 500.4100, L100.0100, L500.4050 #### [facility] [address] [place], [address] GAP 5 Normal 5-15 [facility] Comment on above: Order Comment: Order Date: 06/28/25 Order Info: [id number] - CMP Order Info: - LIPID Performed By: #### L 500.4100, L100.0100, L500.4050 #### [facility] [address] [place], [address] GFR/1.73 sq M.predicted among non-blacks MDRD (S/P/Bld) [Vol rate/Area] 72 mL/min/{1.73_m2} Normal >60 [facility] Comment on above: Order Comment: Order Date: 06/28/25 Order Info: [id number] - CMP Order Info: [id number] - LIPID Result Comment: Non- GFR Calc Performed By: #### L 500.4100, L100.0100, L500.4050 #### [facility] [address] [place], [address] Globulin (S) [Mass/Vol] 3.3 g/dL Normal 2.2-4.2 [facility] Comment on above: Order Comment: Order Date: 06/28/25 Order Info: 07 - CMP Order Info: [id number] - LIPID Performed By: #### L 500.4100, L100.0100, L500.4050 #### [facility] [address] [place], [address] Glucose [Mass/Vol] 94 mg/dL Normal 74-106 [facility] Comment on above: Order Comment: Order Date: 06/28/25 Order Info: [id number] - CMP Order Info: [id number] - LIPID Performed By: #### L 500.4100, L100.0100, L500.4050 #### [facility] [address] [place], [address] Potassium [Moles/Vol] 4.2 mmol/L Normal 3.5-5.1 [facility] Comment on above: Order Comment: Order Date: 06/28/25 Order Info: [id number]- - CMP Order Info: [id number] - LIPID Performed By: #### L 500.4100, L100.0100, L500.4050 #### [facility] [address] [place], [address] Sodium [Moles/Vol] 136 mmol/L Normal 136-145 [facility] Comment on above: Order Comment: Order Date: 06/28/25 Order Info: [id number]- - CMP Order Info: [id number] - LIPID Performed By: #### L 500.4100, L100.0100, L500.4050 #### [facility] [address] [place], [address] T PROT 7.1 g/dL Normal 6.4-8.2 [facility] Comment on above: Order Comment: Order Date: 06/28/25 Order Info: [id number] - CMP Order Info: [id number] - LIPID Performed By: #### L 500.4100, L100.0100, L500.4050 #### [facility] [address] [place], [address] Urea nitrogen [Mass/Vol] 17 mg/dL Normal 7-18 [facility] Comment on above: Order Comment: Order Date: 06/28/25 Order Info: [id number] - CMP Order Info: [id number] - LIPID Performed By: #### L 500.4100, L100.0100, L500.4050 #### [facility] [address] [place], [address] Lipid Profileon 09-13-2024 Cholesterol [Mass/Vol] 255 mg/dL High 200 [facility] Comment on above: Order Comment: Order Date: 06/28/25 Order Info: [id number] - CMP Order Info: [id number] - LIPID Result Comment: <200 mg/dL Desirable 200-240 mg/dL Borderline >240 mg/dL High Risk Performed By: #### L 500.4100, L100.0100, L500.4050 #### [facility] [address] [place], [address] Cholesterol in HDL [Mass/Vol] 83 mg/dL Normal [facility] Comment on above: Order Comment: Order Date: 06/28/25 Order Info: [id number]- - CMP Order Info: [id number] - LIPID Result Comment: The drugs N-Acetylcysteine and Metamizole may falsely depress this assay. Reference Range HDL <40 mg/dL Low HDL Cholesterol HDL >or= 60 mg/dL High HDL Cholesterol Performed By: #### L 500.4100, L100.0100, L500.4050 #### [facility] [address] [place], [address] Cholesterol in LDL [Mass/Vol] 143 mg/dL High 0-130 [facility] Comment on above: Order Comment: Order Date: 06/28/25 Order Info: [id number] - CMP Order Info: [id number] - LIPID Performed By: #### L 500.4100, L100.0100, L500.4050 #### [facility] [address] [place], [address] Cholesterol in VLDL [Mass/Vol] 29 mg/dL Normal 5-40 [facility] Comment on above: Order Comment: Order Date: 06/28/25 Order Info: [id number] - CMP Order Info: [id number] - LIPID Performed By: #### L 500.4100, L100.0100, L500.4050 #### [facility] [address] [place], [address] Triglyceride [Mass/Vol] 145 mg/dL Normal [facility] Comment on above: Order Comment: Order Date: 06/28/25 Order Info: [id number] - CMP Order Info: [id number] - LIPID Result Comment: The drugs N-Acetylcysteine and Metamizole may falsely depress this assay. Serum Triglycerides Reference Interval Normal <150 mg/dL Borderline high 150 - 199 mg/dL High 200 - 499 mg/dL Very High > or = 500 mg/dL Performed By: #### L 500.4100, L100.0100, L500.4050 #### [facility] [address] [place], [address] Magnesiumon 09-13-2024 Magnesium [Mass/Vol] 2.2 mg/dL Normal 1.6-2.6 [facility] Comment on above: Order Comment: Order Date: 06/28/25 Order Info: [id number] - CMP Order Info: [id number] - LIPID Performed By: #### L 500.4100, L100.0100, L500.4050 #### [facility] [address] [place], [address] Thyroid Stim Hormone (TSH)on 09-13-2024 TSH 1.980 uIU/mL Normal 0.358-3.740 [facility] Comment on above: Order Comment: Order Date: 06/28/25 Order Info: [id number] - CMP Order Info: [id number] - LIPID Performed By: #### L 500.4100, L100.0100, L500.4050 #### [facility] [address] [place], [address] Urinalysis, Completeon 09-13 BACTERIA 3+ /hpf Normal None Seen [facility] Comment on above: Order Comment: Order Date: 06/28/25 Order Info: [id number] - CMP Order Info: [id number] - LIPID Performed By: #### L 500.4100, L100.0100, L500.4050 #### [facility] [address] [place], [address] EPI,SQUAMOUS 0-5 SEEN Normal 5-10 [facility] Comment on above: Order Comment: Order Date: 06/28/25 Order Info: [id number] - CMP Order Info: [id number] - LIPID Performed By: #### L 500.4100, L100.0100, L500.4050 #### [facility] [address] [place], [address] RBC 0-5 SEEN Normal 0-5 [facility] Comment on above: Order Comment: Order Date: 06/28/25 Order Info: [id number]- - CMP Order Info: [id number] - LIPID Performed By: #### L 500.4100, L100.0100, L500.4050 #### [facility] [address] [place], [address] WBC 0-5 SEEN Normal 0-5 [facility] Comment on above: Order Comment: Order Date: 06/28/25 Order Info: [id number] - CMP Order Info: [id number] - LIPID Performed By: #### L 500.4100, L100.0100, L500.4050 #### [facility] [address] [place], [address] Mucus Ql (Urine sed) 0 SEEN Normal [facility] Comment on above: Order Comment: Order Date: 06/28/25 Order Info: [id number] - CMP Order Info: [id number] - LIPID Performed By: #### L 500.4100, L100.0100, L500.4050 #### [facility] [address] [place], [address] Vitamin D,25 Hydroxyon 09-13 Vitamin D 25-OH 24.0 ng/mL Normal [facility] Comment on above: Result Comment: Cidni min D 25(OH) Status Range Deficiency <20 ng/mL (50nmol/L) Insufficiency 20 - 30 ng/mL (50 - 75 nmol/L) Sufficiency 30 - 100 ng/mL (75 - 250 nmol/L) Toxicity >100 ng/mL (>250 nmol/L) Performed By: #### L 500.4100, L100.0100, L500.4050 #### [facility] [address] [place], [address] Emergency Department Summary on 08-10-2024 Emergency Department Summary [facility] Medical Records Department [address] [place] [address] Emergency Department Summary 08/10/24 MR#: [id number] Acct: [id number] Name: FRED MON Rep #: [id number] : 1940 83 From: Víctor Henry DO [...] fracture and therefore comes in for evaluation. [facility] Medical History (Updated 08/10/24 @ 05:[address] Víctor Henry DO) Wears glasses Post-menopausal Walker as ambulation [...] HEENT Narrat (more content not included)... Normal [facility] Ribs Uni Min 3V w/PA Cheston 08-10-2024 Ribs Uni Min 3V w/PA Chest [facility] Imaging Services [address] [place], [place] [address] Ribs Uni Min 3V w/PA Chest MR#: [id number] Acct: [id number] Name: FRED MON Rep #: [id number] : 1940 F 83 From: Truong Saba MD PCP: Dr. Alex Giang MD Status: REG ER Study: Ribs Uni Min 3V w/PA Chest Date of Exam: 08/10 Exam# [id number] Ordering Dr: Ví[place] [id number] INDICATION: PAIN EXAMINATION/TECHNIQUE: X-RAY - XR Ribs [...] Dr. Alex Giang MD; Víctor Henry DO Extrusion Die Coordinator: Signed Normal [facility] Dexa Bone Density Studyon Dexa Bone Density Study [facility] Imaging Services [address] [place] [address] Dexa Bone Density Study MR#: [id number] Acct: [id number] Name: FRED MON Rep #: [id number] : 1940 F 83 From: Fady crane MD PCP: Dr. Alex Giang MD Status: [facility] Study: Dexa Bone Density Study Date of Exam: 08/07/24 Exam# [id number] Ordering [place]: [place] [id number] STUDY: DUAL ENERGY X-RAY ABSORPTIOMETRY / DXA [...] EDT , CC: Dr. Alex Giang MD Extrusion Die Coordinator: Signed Normal [facility] Absolute lymphocyte countOrd ered By: Nima Harper on 12-31-2023 Lymphocytes Auto (Unsp spec) [#/Vol] 1.76 10*3/uL 0.83-4.51 [facility] Automated lymphocyte count a s percentage of total leukocytesOrdered By: Nima Harper on 12-31-2023 Lymphocytes/100 WBC Auto (Unsp spec) 31.0 % 19-41 [facility] Basophil percentageOrdered B y: Nima Harper on 12-31-2023 Basophils/100 WBC (Bld) 0.9 % 0-1 [facility] Chloride [Moles/Vol] 109 mmol/L 98-107 [facility] Eosinophils/100 WBC (Bld) 5.1 % 0-5 [facility] Glucose [Mass/Vol] 102 mg/dL 74-106 [facility] Comment on above: Fasting Glucose resu lt from 100 to 125 mg/dL suggests IMPAIRED HOMEOSTASIS per A.D.A. criteria. Hemoglobin (Bld) [Mass/Vol] 10.6 g/dL 12.0-15.0 [facility] Monocytes/100 WBC (Bld) 9.2 % 0-10 [facility] Neutrophils (Bld) [#/Vol] 3.0 10*3/uL 2.0-7.7 [facility] Neutrophils/100 WBC (Bld) 53.3 % 47-70 [facility] Potassium [Moles/Vol] 4.3 mmol/L 3.5-5.1 [facility] Sodium [Moles/Vol] 139 mmol/L 136-145 [facility] WBC (Bld) [#/Vol] 5.7 10*3/uL 4.4-11.0 [facility] Determination of erythrocyte mean corpuscular volume (MCV)Ordered By: Nima Harper on 12-31-2023 MCV (RBC) [Entitic vol] 89.0 fL 81-99 [facility] Erythrocyte distribution wid th ratioOrdered By: Nima Harper on 12-31-2023 Erythrocyte distribution width (RBC) [Ratio] 14.1 % 11.6-14.6 [facility] Erythrocyte distribution wid th standard deviationOrdered By: Nima Harper on 12-31-2023 Erythrocyte distribution width (RBC) [Entitic vol] 45.7 fL 35.1-43.9 [facility] Hematocrit Auto (Bld) [Volum e fraction]Ordered By: Nima Harper on 12-31-2023 Hematocrit (Bld) [Volume fraction] 33.2 % 37-47 [facility] Immature granulocytes/100 WB C Auto (Bld)Ordered By: [facility] Leroy on 12-31-2023 Immature granulocytes/100 WBC (Bld) 0.500 % 0.0-0.9 [facility] Comment on above: IG% - Immature Granu locytes (promyelocytes, myelocytes and metamyelocytes) > 1% indicates that a LEFT SHIFT is Present. Laboratory - Chemistry and C hemistry - challengeOrdered By: Nima Harper 12-31-2023 CO2 [Moles/Vol] 25.0 mmol/L 21.0-32.0 [facility] Urea nitrogen/Creatinine [Mass ratio] 30.0 mg/mg 10-20 [facility] Laboratory - Hematology and Cell countsOrdered By: Nima Harper 12-31-2023 MCH (RBC) [Entitic mass] 28.4 pg 27.0-32.0 [facility] MCHC (RBC) [Mass/Vol] 31.9 g/dL 32-36 [facility] Nucleated RBC/100 WBC (Bld) [Ratio] 0 % 0-5 [facility] Platelet mean volume (Bld) [Entitic vol] 10.2 fL 6.2-12.0 [facility] Platelets (Bld) [#/Vol] 216 10*3/uL 150-450 [facility] No Panel InformationOrdered By: Nima Harper on 12-31-2023 Estimated Creatinine Clearance Calc 57.44 ml/min [facility] Estimated GFR (MDRD) Amer 88 mL/min >60 [facility] Comment on above: GFR Calc Estimated GFR (MDRD) Non-Af Amer 73 mL/min >60 [facility] Comment on above: Non- GFR Calc RBC Auto (Bld) [#/Vol]Ordere d By: Nima Harper on 12-31-2023 RBC (Bld) [#/Vol] 3.73 10*6/uL 4.2-5.4 [facility] Serum or plasma calcium josie urement (mass/volume)Ordered By: Nima Harper on 12-31-2023 Calcium [Mass/Vol] 9.4 mg/dL 8.5-10.1 [facility] Serum or plasma creatinine m easurement (mass/volume)Ordered By: Nima Harper on 12-31-2023 Creatinine [Mass/Vol] 0.80 mg/dL 0.55-1.02 [facility] Comment on above: The validity of the calculated GFR & GFRAA in patients over 70 years has not been determined. Clinical correlation is essential. Serum or plasma urea nitroge n measurement (mass/volume)Ordered By: Nima Harper on 12-31-2023 Urea nitrogen [Mass/Vol] 24 mg/dL 7-18 [facility] Thin prep Papanicolaou smear with manual screeningOrdered By: Nima Harper on 12-31-2023 Thin prep Papanicolaou smear with manual screening 5 5-15 [facility] Absolute lymphocyte countOrd ered By: Nima Harper on 12-24-2023 Lymphocytes Auto (Unsp spec) [#/Vol] 1.46 10*3/uL 0.83-4.51 [facility] Automated lymphocyte count a s percentage of total leukocytesOrdered By: Nima Harper on 12-24-2023 Lymphocytes/100 WBC Auto (Unsp spec) 20.2 % 19-41 [facility] Basophil percentageOrdered B y: Nima Harper on 12-24-2023 Basophil percentage 0-5 SEEN /hpf 0-5 [facility] Basophils/100 WBC (Bld) 0.7 % 0-1 [facility] Chloride [Moles/Vol] 107 mmol/L 98-107 [facility] Eosinophils/100 WBC (Bld) 0.4 % 0-5 [facility] Glucose [Mass/Vol] 123 mg/dL 74-106 [facility] Comment on above: Fasting Glucose resu lt from 100 to 125 mg/dL suggests IMPAIRED HOMEOSTASIS per A.D.A. criteria. Hemoglobin (Bld) [Mass/Vol] 10.5 g/dL 12.0-15.0 [facility] Monocytes/100 WBC (Bld) 10.0 % 0-10 [facility] Neutrophils (Bld) [#/Vol] 4.9 10*3/uL 2.0-7.7 [facility] Neutrophils/100 WBC (Bld) 68.0 % 47-70 [facility] Potassium [Moles/Vol] 3.7 mmol/L 3.5-5.1 [facility] Sodium [Moles/Vol] 138 mmol/L 136-145 [facility] WBC (Bld) [#/Vol] 7.2 10*3/uL 4.4-11.0 [facility] Bilirubin Test strip Ql (U)O rdered By: Nima Harper on 12-24-2023 Bilirubin Ql (U) Negative Negative [facility] Culture, urineOrdered By: Nathan Harper on 12-24-2023 Bacteria identified Cx Nom (U) Culture exhibits no growth. [facility] Determination of erythrocyte mean corpuscular volume (MCV)Ordered By: Nima Harpre on 12-24-2023 MCV (RBC) [Entitic vol] 88.3 fL 81-99 [facility] Erythrocyte distribution wid th ratioOrdered By: Nima Harper on 12-24-2023 Erythrocyte distribution width (RBC) [Ratio] 14.6 % 11.6-14.6 [facility] Erythrocyte distribution wid th standard deviationOrdered By: Nima Harper on 12-24-2023 Erythrocyte distribution width (RBC) [Entitic vol] 46.9 fL 35.1-43.9 [facility] Hematocrit Auto (Bld) [Volum e fraction]Ordered By: Nima Harper on 12-24-2023 Hematocrit (Bld) [Volume fraction] 32.3 % 37-47 [facility] Immature granulocytes/100 WB C Auto (Bld)Ordered By: Nima Harper on 12-24-2023 Immature granulocytes/100 WBC (Bld) 0.700 % 0.0-0.9 [facility] Comment on above: IG% - Immature Granu locytes (promyelocytes, myelocytes and metamyelocytes) > 1% indicates that a LEFT SHIFT is Present. Ketones Test strip Ql (U)Ord ered By: Nima Harper on 12-24-2023 Ketones Ql (U) Negative Negative [facility] Laboratory - Chemistry and C hemistry - challengeOrdered By: Nima Harper on 12-24-2023 CO2 [Moles/Vol] 26.0 mmol/L 21.0-32.0 [facility] Urea nitrogen/Creatinine [Mass ratio] 20.8 mg/mg 10-20 [facility] Laboratory - Hematology and Cell countsOrdered By: Nima Harper on 12-24-2023 MCH (RBC) [Entitic mass] 28.7 pg 27.0-32.0 [facility] MCHC (RBC) [Mass/Vol] 32.5 g/dL 32-36 [facility] Nucleated RBC/100 WBC (Bld) [Ratio] 0 % 0-5 [facility] Platelet mean volume (Bld) [Entitic vol] 10.9 fL 6.2-12.0 [facility] Platelets (Bld) [#/Vol] 161 10*3/uL 150-450 [facility] Mucus LM Ql (Urine sed)Order ed By: Nima Harper on 12-24-2023 Mucus Ql (Urine sed) 0 SEEN /hpf [facility] Nitrite Test strip Ql (U)Ord ered By: Nima Harper on 12-24-2023 Nitrite Ql (U) Negative Negative [facility] No Panel InformationOrdered By: Nima Harper on 12-24-2023 Urine RBC 5-10 SEEN /hpf 0-5 [facility] Estimated Creatinine Clearance Calc 57.86 ml/min [facility] Estimated GFR (MDRD) Amer 117 mL/min >60 [facility] Comment on above: GFR Calc Estimated GFR (MDRD) Non-Af Amer 97 mL/min >60 [facility] Comment on above: Non- GFR Calc Protein Test strip Ql (U)Ord ered By: Nima Harper on 12-24-2023 Protein Ql (U) 15 mg/dl Negative [facility] RBC Auto (Bld) [#/Vol]Ordere d By: Nima Harper on 12-24-2023 RBC (Bld) [#/Vol] 3.66 10*6/uL 4.2-5.4 [facility] Respiratory pathogens detect ion panel by molecular detection methodOrdered By: Nima Harper on 12-24-2023 Respiratory pathogens DNA and RNA panel DEDRICK+probe (Resp) [facility] Serum or plasma calcium josie urement (mass/volume)Ordered By: Nima Harper on 12-24-2023 Calcium [Mass/Vol] 9.3 mg/dL 8.5-10.1 [facility] Serum or plasma creatinine m easurement (mass/volume)Ordered By: Nima Harper on 12-24-2023 Creatinine [Mass/Vol] 0.62 mg/dL 0.55-1.02 [facility] Comment on above: The validity of the calculated GFR & GFRAA in patients over 70 years has not been determined. Clinical correlation is essential. Serum or plasma urea nitroge n measurement (mass/volume)Ordered By: Nima Harper on 12-24-2023 Urea nitrogen [Mass/Vol] 13 mg/dL 7-18 [facility] Squamous epithelial cells de tection in urine sediment by light microscopyOrdered By: Nima Harper 12-24-2023 Epithelial cells.squamous LM Ql (Urine sed) 0-5 SEEN /hpf 5-10 [facility] Thin prep Papanicolaou smear with manual screeningOrdered By: Nima Harper 12-24-2023 Thin prep Papanicolaou smear with manual screening 5 5-15 [facility] Urine blood detectionOrdered By: Nima Harper 12-24-2023 RBC Ql (U) 50 /ul Negative [facility] Urine clarityOrdered By: Nima Harper 12-24-2023 Clarity (U) Clear Clear [facility] Urine color determinationOrd ered By: Nima Harper 12-24-2023 Color (U) Yellow Yellow [facility] Urine glucose detectionOrder ed By: Nima Harper 12-24-2023 Glucose Ql (U) Normal mg/dl Normal [facility] Urine leukocyte esterase det ection by dipstickOrdered By: Nima Harper 12-24-2023 Leukocyte esterase Test strip Ql (U) 25 /ul Negative [facility] Urine pHOrdered By: Nima Harper on 12-24-2023 pH (U) 6.5 [pH] 5.0 - 8.0 [facility] Urine sediment bacteria coun t by microscopy (number/high power field)Ordered By: Nima Harper on 12-24-2023 Bacteria LM.HPF (Urine sed) [#/Area] RARE /hpf None Seen [facility] Urine specific gravity measu rementOrdered By: Nima Harper on 12-24-2023 Specific gravity (U) [Rel density] 1.015 1.002-1.030 [facility] Urine urobilinogen measureme ntOrdered By: Nima Harper on 12-24-2023 Urobilinogen Ql (U) Normal mg/dl Normal [facility] Basophil percentageOrdered B y: Jose Ramon Zuluaga on 12-23-2023 Hemoglobin (Bld) [Mass/Vol] 10.2 g/dL 12.0-15.0 [facility] WBC (Bld) [#/Vol] 8.5 10*3/uL 4.4-11.0 [facility] Determination of erythrocyte mean corpuscular volume (MCV)Ordered By: Jose Ramon Zuluaga on 12-23-2023 MCV (RBC) [Entitic vol] 89.0 fL 81-99 [facility] Erythrocyte distribution wid th ratioOrdered By: Jose Ramon Zuluaga on 12-23-2023 Erythrocyte distribution width (RBC) [Ratio] 14.5 % 11.6-14.6 [facility] Erythrocyte distribution wid th standard deviationOrdered By: Jose Ramon Zuluaga on 12-23-2023 Erythrocyte distribution width (RBC) [Entitic vol] 46.8 fL 35.1-43.9 [facility] Hematocrit Auto (Bld) [Volum e fraction]Ordered By: Jose Ramon Zuluaga on 12-23-2023 Hematocrit (Bld) [Volume fraction] 31.4 % 37-47 [facility] Laboratory - Hematology and Cell countsOrdered By: Jose Ramon Zuluaga on 12-23-2023 MCH (RBC) [Entitic mass] 28.9 pg 27.0-32.0 [facility] MCHC (RBC) [Mass/Vol] 32.5 g/dL 32-36 [facility] Platelet mean volume (Bld) [Entitic vol] 10.3 fL 6.2-12.0 [facility] Platelets (Bld) [#/Vol] 142 10*3/uL 150-450 [facility] RBC Auto (Bld) [#/Vol]Ordere d By: Jose Ramon Zuluaga on 12-23-2023 RBC (Bld) [#/Vol] 3.53 10*6/uL 4.2-5.4 [facility] Basophil percentageOrdered B y: Jose Ramon Zuluaga on 12-22-2023 Chloride [Moles/Vol] 110 mmol/L 98-107 [facility] Glucose [Mass/Vol] 118 mg/dL 74-106 [facility] Comment on above: Fasting Glucose resu lt from 100 to 125 mg/dL suggests IMPAIRED HOMEOSTASIS per A.D.A. criteria. Potassium [Moles/Vol] 4.3 mmol/L 3.5-5.1 [facility] Sodium [Moles/Vol] 141 mmol/L 136-145 [facility] Laboratory - Chemistry and C hemistry - challengeOrdered By: Jose Ramon Zuluaga on 12-22-2023 CO2 [Moles/Vol] 23.0 mmol/L 21.0-32.0 [facility] Urea nitrogen/Creatinine [Mass ratio] 21.9 mg/mg 10-20 [facility] No Panel InformationOrdered By: Jose Ramon Zuluaga on 12-22-2023 Estimated Creatinine Clearance Calc 58.04 ml/min [facility] Estimated GFR (MDRD) Amer 98 mL/min >60 [facility] Comment on above: GFR Calc Estimated GFR (MDRD) Non-Af Amer 81 mL/min >60 [facility] Comment on above: Non- GFR Calc Serum or plasma calcium josie urement (mass/volume)Ordered By: Jose Ramon Zuluaga on 12-22-2023 Calcium [Mass/Vol] 9.6 mg/dL 8.5-10.1 [facility] Serum or plasma creatinine m easurement (mass/volume)Ordered By: Jose Ramon Zuluaga on 12-22-2023 Creatinine [Mass/Vol] 0.73 mg/dL 0.55-1.02 [facility] Comment on above: The validity of the calculated GFR & GFRAA in patients over 70 years has not been determined. Clinical correlation is essential. Serum or plasma urea nitroge n measurement (mass/volume)Ordered By: Jose Ramon Zuluaga on 12-22-2023 Urea nitrogen [Mass/Vol] 16 mg/dL 7-18 [facility] Thin prep Papanicolaou smear with manual screeningOrdered By: Jose Ramon Zuluaga on 12-22-2023 Thin prep Papanicolaou smear with manual screening 8 5-15 [facility] Thin prep Papanicolaou smear with manual screeningOrdered By: Jose Ramon Zuluaga on 12-21-2023 Thin prep Papanicolaou smear with manual screening 106 mg/dL 74-106 [facility] Comment on above: MANAGEMENT OF PATIEN T CARE PER NURSING PROTOCOL Absolute lymphocyte countOrd ered By: Jose Ramon Zuluaga on 12-08-2023 Lymphocytes Auto (Unsp spec) [#/Vol] 1.63 10*3/uL 0.83-4.51 [facility] Automated lymphocyte count a s percentage of total leukocytesOrdered By: Jose Ramon Zuluaga on 12-08-2023 Lymphocytes/100 WBC Auto (Unsp spec) 40.0 % 19-41 [facility] Basophil percentageOrdered B y: Jose Ramon Zuluaga on 12-08-2023 Basophils/100 WBC (Bld) 1.2 % 0-1 [facility] Eosinophils/100 WBC (Bld) 2.2 % 0-5 [facility] Monocytes/100 WBC (Bld) 7.6 % 0-10 [facility] Neutrophils (Bld) [#/Vol] 2.0 10*3/uL 2.0-7.7 [facility] Neutrophils/100 WBC (Bld) 48.8 % 47-70 [facility] Immature granulocytes/100 WB C Auto (Bld)Ordered By: Jose Ramon Zuluaga on 12-08-2023 Immature granulocytes/100 WBC (Bld) 0.200 % 0.0-0.9 [facility] Comment on above: IG% - Immature Granu locytes (promyelocytes, myelocytes and metamyelocytes) > 1% indicates that a LEFT SHIFT is Present. Laboratory - Chemistry and C hemistry - challengeOrdered By: Brandon Rosado on 12-08-2023 Magnesium [Mass/Vol] 2.5 mg/dL 1.6-2.6 [facility] Laboratory - Hematology and Cell countsOrdered By: Jose Ramon Zuluaga on 12-08-2023 Nucleated RBC/100 WBC (Bld) [Ratio] 0 % 0-5 [facility] No Panel InformationOrdered By: Jose Ramon Zuluaga on 12-08-2023 Nasal Screen MRSA/MSSA [facility] Thin prep Papanicolaou smear with manual screeningOrdered By: Jose Ramon Zuluaga on 12-08-2023 Thin prep Papanicolaou smear with manual screening 3.6 g/dL 3.2-5.0 [facility] Absolute lymphocyte countOrd ered By: Alex Giang on 10-14-2023 Lymphocytes Auto (Unsp spec) [#/Vol] 1.99 10*3/uL 0.83-4.51 [facility] Basophil percentageOrdered B y: Alex Giang on 10-14-2023 Basophils/100 WBC (Bld) 0.7 % 0-1 [facility] Bilirubin [Mass/Vol] 0.60 mg/dL 0.20-1.00 [facility] Comment on above: For patients on eltr ombopag therapy, use of Dimension [place] TBIL is not recommended. Chloride [Moles/Vol] 110 mmol/L 98-107 [facility] Cholesterol [Mass/Vol] 176 mg/dL <200 [facility] Comment on above: <200 mg/dL Desirable 200-240 mg/dL Borderline >240 mg/dL High Risk Eosinophils/100 WBC (Bld) 3.0 % 0-5 [facility] Glucose [Mass/Vol] 112 mg/dL 74-106 [facility] Comment on above: Fasting Glucose resu lt from 100 to 125 mg/dL suggests IMPAIRED HOMEOSTASIS per A.D.A. criteria. Neutrophils (Bld) [#/Vol] 3.3 10*3/uL 2.0-7.7 [facility] Neutrophils/100 WBC (Bld) 55.0 % 47-70 [facility] Potassium [Moles/Vol] 3.8 mmol/L 3.5-5.1 [facility] Protein [Mass/Vol] 6.9 g/dL 6.4-8.2 [facility] Sodium [Moles/Vol] 140 mmol/L 136-145 [facility] Triglyceride [Mass/Vol] 218 mg/dL <199 [facility] Comment on above: The drugs N-Acetylcy steine and Metamizole may falsely depress this assay.Serum Triglycerides Reference Interval Normal <150 mg/dL Borderline high 150 - 199 mg/dL High 200 - 499 mg/dL Very High > or = 500 mg/dL WBC (Bld) [#/Vol] 6.0 10*3/uL 4.4-11.0 [facility] Bilirubin Test strip Ql (U)O rdered By: Alex Giang on 10-14-2023 Bilirubin Ql (U) 1 mg/dL Negative [facility] Comment on above: COLOR OF URINE MAY A FFECT DIPSTICK RESULTS. Blood erythrocytes count (nu mber/volume)Ordered By: Alex Giagn on 10-14-2023 RBC (Bld) [#/Vol] 3.83 10*6/uL 4.2-5.4 [facility] Blood hemoglobin measurement (mass/volume)Ordered By: Alex Giang on 10-14-2023 Hemoglobin (Bld) [Mass/Vol] 11.3 g/dL 12.0-15.0 [facility] Blood lymphocytes/100 leukoc ytesOrdered By: Alex Giang on 10-14-2023 Lymphocytes/100 WBC (Bld) 33.4 % 19-41 [facility] Blood monocytes/100 leukocyt esOrdered By: Alex Giang on 10-14-2023 Monocytes/100 WBC (Bld) 7.6 % 0-10 [facility] Blood platelet mean volumeOr dered By: Alex Giang on 10-14-2023 Platelet mean volume (Bld) [Entitic vol] 10.1 fL 6.2-12.0 [facility] Determination of erythrocyte mean corpuscular volume (MCV)Ordered By: Alex Giang on 10-14-2023 MCV (RBC) [Entitic vol] 90.1 fL 81-99 [facility] Hematocrit Auto (Bld) [Volum e fraction]Ordered By: Alex Giang on 10-14-2023 Hematocrit (Bld) [Volume fraction] 34.5 % 37-47 [facility] Ketones Test strip Ql (U)Ord ered By: Alex Giang on 10-14-2023 Ketones Ql (U) 5 mg/dl Negative [facility] Laboratory - Chemistry and C hemistry - challengeOrdered By: Alex Giang on 10-14-2023 ALP [Catalytic activity/Vol] 119 U/L 45-117 [facility] ALT [Catalytic activity/Vol] 19 U/L 13-56 [facility] CO2 [Moles/Vol] 24.0 mmol/L 21.0-32.0 [facility] Globulin (S) [Mass/Vol] 3.2 g/dL 2.2-4.2 [facility] Urea nitrogen/Creatinine [Mass ratio] 22.6 mg/mg 10-20 [facility] Laboratory - Hematology and Cell countsOrdered By: Alex Giang on 10-14-2023 Erythrocyte distribution width (RBC) [Entitic vol] 44.9 fL 35.1-43.9 [facility] Erythrocyte distribution width (RBC) [Ratio] 13.8 % 11.6-14.6 [facility] Immature granulocytes/100 WBC (Bld) 0.300 % 0.0-0.9 [facility] Comment on above: IG% - Immature Granu locytes (promyelocytes, myelocytes and metamyelocytes) > 1% indicates that a LEFT SHIFT is Present. MCH (RBC) [Entitic mass] 29.5 pg 27.0-32.0 [facility] Nucleated RBC/100 WBC (Bld) [Ratio] 0 % 0-5 [facility] MCHC Auto (RBC) [Mass/Vol]Or dered By: Alex Giang on 10-14-2023 MCHC (RBC) [Mass/Vol] 32.8 g/dL 32-36 [facility] Nitrite Test strip Ql (U)Ord ered By: Alex Giang on 10-14-2023 Nitrite Ql (U) Negative Negative [facility] No Panel InformationOrdered By: Alex Giang on 10-14-2023 Estimated GFR (MDRD) Amer 64 mL/min >60 [facility] Comment on above: GFR Calc Estimated GFR (MDRD) Non-Af Amer 53 mL/min >60 [facility] Comment on above: Non- GFR Calc Thyroid Stimulating Hormone (TSH) 2.01 uIU/mL 0.358-3.74 [facility] Vitamin D 25-Hydroxy 33.2 ng/mL [facility] Comment on above: Vitamin D 25(OH) Sta tus Range Deficiency <20 ng/mL (50nmol/L) Insufficiency 20 - 30 ng/mL (50 - 75 nmol/L) Sufficiency 30 - 100 ng/mL (75 - 250 nmol/L) Toxicity >100 ng/mL (>250 nmol/L) Platelets bldOrdered By: Andre Giang on 10-14-2023 Platelets (Bld) [#/Vol] 231 10*3/uL 150-450 [facility] Protein Test strip Ql (U)Ord ered By: Alex Giang on 10-14-2023 Protein Ql (U) 15 mg/dl Negative [facility] Serum or plasma albumin josie urement (mass/volume)Ordered By: Alex Giang on 10-14-2023 Albumin [Mass/Vol] 3.7 g/dL 3.2-5.0 [facility] Serum or plasma albumin/glob ulin mass ratioOrdered By: Alex Giang on 10-14-2023 Albumin/Globulin [Mass ratio] 1.2 {ratio} 0.9-2.4 [facility] Serum or plasma calcium josie urement (mass/volume)Ordered By: Alex Giang on 10-14-2023 Calcium [Mass/Vol] 9.0 mg/dL 8.5-10.1 [facility] Serum or plasma cholesterol in HDL measurement (mass/volume)Ordered By: Alex Giang on 10-14-2023 Cholesterol in HDL [Mass/Vol] 69 mg/dL >40 [facility] Comment on above: The drugs N-Acetylcy steine and Metamizole may falsely depress this assay. Reference Range HDL <40 mg/dL Low HDL Cholesterol HDL >or= 60 mg/dL High HDL Cholesterol Serum or plasma cholesterol in VLDL measurement (mass/volume)Ordered By: Alex Giang on 10-14-2023 Cholesterol in VLDL [Mass/Vol] 44 mg/dL 5-40 [facility] Serum or plasma creatinine m easurement (mass/volume)Ordered By: Alex Giang on 10-14-2023 Creatinine [Mass/Vol] 1.06 mg/dL 0.55-1.02 [facility] Comment on above: The validity of the calculated GFR & GFRAA in patients over 70 years has not been determined. Clinical correlation is essential. Serum or plasma low density lipoprotein (LDL) cholesterol measurement (mass/volume)Ordered By: Alex Giang on 10-14-2023 Cholesterol in LDL [Mass/Vol] 63 mg/dL 0-130 [facility] Serum or plasma urea nitroge n measurement (mass/volume)Ordered By: Alex Giang on 10-14-2023 Urea nitrogen [Mass/Vol] 24 mg/dL 7-18 [facility] Thin prep Papanicolaou smear with manual screeningOrdered By: Alex Giang on 10-14-2023 Thin prep Papanicolaou smear with manual screening 13 U/L 15-37 [facility] Thin prep Papanicolaou smear with manual screening 6 5-15 [facility] Urine blood detectionOrdered By: Alex Giang on 10-14-2023 RBC Ql (U) 150 /ul Negative [facility] Urine clarityOrdered By: Andre Giang on 10-14-2023 Clarity (U) Clear Clear [facility] Urine color determinationOrd ered By: Alex Giang on 10-14-2023 Color (U) Yellow Yellow [facility] Urine glucose detectionOrder ed By: Alex Giang on 10-14-2023 Glucose Ql (U) Normal mg/dl Normal [facility] Urine leukocyte esterase det ection by dipstickOrdered By: Alex Giang on 10-14-2023 Leukocyte esterase Test strip Ql (U) 25 /ul Negative [facility] Urine pHOrdered By: Alex ferrari on 10-14-2023 pH (U) 5.0 [pH] 5.0 - 8.0 [facility] Urine specific gravity measu rementOrdered By: Alex Giang on 10-14-2023 Specific gravity (U) [Rel density] 1.025 1.002-1.030 [facility] Urobilinogen Auto test strip Ql (U)Ordered By: Alex Giang on 10-14-2023 Urobilinogen Ql (U) 1 mg/dl Normal [facility] .Auto Diffon 09-21-2023 Basophil, Absolute 0.0 10 3/mcL Normal 0.0-0.2 [facility] ([place]) Comment on above: Performed By: #### A JOSE LUIS, CBC, GFR, ADIFF, BMP #### [address] [address] Basophils/100 WBC (Bld) 0.1 % Normal 0.0-2.5 [facility] ([place]) Comment on above: Performed By: #### A JOSE LUIS, CBC, GFR, ADIFF, BMP #### [address] [address] Eosinophil, Absolute 0.0 10 3/mcL Normal 0.0-0.4 [facility] ([place]) Comment on above: Performed By: #### A JOSE LUIS, CBC, GFR, ADIFF, BMP #### [address] [address] Eosinophils/100 WBC (Bld) 0.0 % Normal 0.0-7.0 [facility] ([place]) Comment on above: Performed By: #### A JOSE LUIS, CBC, GFR, ADIFF, BMP #### [address] [address] Lymphocyte, Absolute 1.3 10 3/mcL Normal 0.8-3.9 [facility] ([place]) Comment on above: Performed By: #### A JOSE LUIS, CBC, GFR, ADIFF, BMP #### [address] [address] Lymphocytes/100 WBC (Bld) 10.0 % Normal 10.0-50.0 [facility] ([place]) Comment on above: Performed By: #### A JOSE LUIS, CBC, GFR, ADIFF, BMP #### [address] [address] Monocyte, Absolute 0.3 10 3/mcL Normal 0.2-1.0 [facility] ([place]) Comment on above: Performed By: #### A JOSE LUIS, CBC, GFR, ADIFF, BMP #### [address] [address] Monocytes/100 WBC (Bld) 2.1 % Normal 1.7-13.0 [facility] ([place]) Comment on above: Performed By: #### A JOSE LUIS, CBC, GFR, ADIFF, BMP #### [address] [address] Neutrophils/100 WBC (Bld) 87.8 % High 37.0-80.0 [facility] ([place]) Comment on above: Performed By: #### A JOSE LUIS, CBC, GFR, ADIFF, BMP #### [address] [address] .GFRon 09-21-2023 GFR Non- 53 ml/min/1.73sqm Normal [facility] ([place]) Comment on above: Result Comment: GFR Population [...] JOSE LUIS, CBC, GFR, ADIFF, BMP #### [address] [address] GFR 64 ml/min/1.73sqm Normal [facility] ([place]) Comment on above: Result Comment: GFR Population [...] JOSE LUIS, CBC, GFR, ADIFF, BMP #### [address] [address] .NEUABSon 09-21-2023 Neutrophil, Absolute 11.2 10 3/mcL High 2.9-6.2 [facility] ([place]) Comment on above: Performed By: #### A JOSE LUIS, CBC, GFR, ADIFF, BMP #### [address] [address] BMPon 09-21-2023 BUN/Creatinine Ratio 27 ratio Normal 7-27 [facility] ([place]) Comment on above: Performed By: #### A JOSE LUIS, CBC, GFR, ADIFF, BMP #### [address] [address] Calcium [Mass/Vol] 8.7 mg/dL Normal 8.4-10.2 [facility] ([place]) Comment on above: Performed By: #### A JOSE LUIS, CBC, GFR, ADIFF, BMP #### [address] [address] Chloride [Moles/Vol] 105 mmol/L Normal 98-107 [facility] ([place]) Comment on above: Performed By: #### A JOSE LUIS, CBC, GFR, ADIFF, BMP #### [address] [address] CO2 [Moles/Vol] 26 mmol/L Normal 23-31 [facility] ([place]) Comment on above: Performed By: #### A JOSE LUIS, CBC, GFR, ADIFF, BMP #### [address] [address] Creatinine [Mass/Vol] 1.00 mg/dL Normal 0.55-1.02 [facility] ([place]) Comment on above: Performed By: #### A JOSE LUIS, CBC, GFR, ADIFF, BMP #### [address] [address] Electrolyte Balance 8.0 mEq/L Normal 4.0-15.0 [facility] ([place]) Comment on above: Performed By: #### A JOSE LUIS, CBC, GFR, ADIFF, BMP #### [address] [address] Glucose [Mass/Vol] 151 mg/dL High 83-110 [facility] ([place]) Comment on above: Performed By: #### A JOSE LUIS, CBC, GFR, ADIFF, BMP #### [address] [address] Potassium [Moles/Vol] 4.5 mmol/L Normal 3.5-5.1 [facility] ([place]) Comment on above: Performed By: #### A JOSE LUIS, CBC, GFR, ADIFF, BMP #### [address] [address] Sodium [Moles/Vol] 139 mmol/L Normal 136-145 [facility] ([place]) Comment on above: Performed By: #### A JOSE LUIS, CBC, GFR, ADIFF, BMP #### [address] [address] Urea nitrogen [Mass/Vol] 27 mg/dL High 7-18 [facility] ([place]) Comment on above: Performed By: #### A JOSE LUIS, CBC, GFR, ADIFF, BMP #### [address] [address] CBCon 09-21-2023 Erythrocyte distribution width (RBC) [Ratio] 13.9 % Normal 11.5-14.5 [facility] ([place]) Comment on above: Performed By: #### A JOSE LUIS, CBC, GFR, ADIFF, BMP #### [address] [address] Hematocrit (Bld) [Volume fraction] 33.2 % Low 37.0-47.0 [facility] ([place]) Comment on above: Performed By: #### A JOSE LUIS, CBC, GFR, ADIFF, BMP #### [address] [address] Hgb 11.3 G/dL Low 12.0-16.0 [facility] ([place]) Comment on above: Performed By: #### A JOSE LUIS, CBC, GFR, ADIFF, BMP #### [address] [address] MCH (RBC) [Entitic mass] 29.7 pg Normal 27.0-31.2 [facility] ([place]) Comment on above: Performed By: #### A JOSE LUIS, CBC, GFR, ADIFF, BMP #### [address] [address] MCHC 34.2 G/dL Normal 33.0-37.0 [facility] ([place]) Comment on above: Performed By: #### A JOSE LUIS, CBC, GFR, ADIFF, BMP #### [address] [address] MCV (RBC) [Entitic vol] 87.0 fL Normal 80.0-94.0 [facility] ([place]) Comment on above: Performed By: #### A JOSE LUIS, CBC, GFR, ADIFF, BMP #### [address] [address] Platelet 176 10 3/mcL Normal 130-400 [facility] ([place]) Comment on above: Performed By: #### A JOSE LUIS, CBC, GFR, ADIFF, BMP #### [address] [address] Platelet mean volume (Bld) [Entitic vol] 8.9 fL Normal 7.4-10.4 [facility] ([place]) Comment on above: Performed By: #### A JOSE LUIS, CBC, GFR, ADIFF, BMP #### [address] [address] RBC 3.82 10 6/mcL Low 4.20-5.40 [facility] ([place]) Comment on above: Performed By: #### A JOSE LUIS, CBC, GFR, ADIFF, BMP #### [address] [address] WBC 12.7 10 3/mcL High 4.6-10.8 [facility] ([place]) Comment on above: Performed By: #### A JOSE LUIS, CBC, GFR, ADIFF, BMP #### [address] [place], [place] [address] LABORATORYOrdered By: SYSTEM SYSTEM on 09-21-2023 Basophil, [...] 09-20-2023 ABO/Rh Interp Positive Invalid Interpretation Code [facility] ([place]) Comment on above: Performed By: #### A JOSE LUIS, CBC, GFR, ADIFF, BMP #### [address] [place], [place] [address] Gel ABSon 09-20-2023 Antibody Screen Gel Negative Normal [facility] ([place]) Comment on above: Performed By: #### A JOSE LUIS, CBC, GFR, ADIFF, BMP #### [address] [address] LABORATORYOrdered By: Carol Perez on 09-20-2023 ABO/Rh [...] 1:06:13 PM Ordering Provider: JOSE RAMON Modi [facility] ([place]) .Auto Diffon 08-26-2023 Basophil, Absolute 0.1 10 3/mcL Normal 0.0-0.2 [facility] ([place]) Comment on above: Performed By: #### A DIFF, BMP, ANSG, CBC, GFR, ABOG, ANEU, ALB #### [address] [address] Basophils/100 WBC (Bld) 1.0 % Normal 0.0-2.5 [facility] ([place]) Comment on above: Performed By: #### A DIFF, BMP, ANSG, CBC, GFR, ABOG, ANEU, ALB #### [address] [address] Eosinophil, Absolute 0.1 10 3/mcL Normal 0.0-0.4 [facility] ([place]) Comment on above: Performed By: #### A DIFF, BMP, ANSG, CBC, GFR, ABOG, ANEU, ALB #### [address] [address] Eosinophils/100 WBC (Bld) 2.6 % Normal 0.0-7.0 [facility] ([place]) Comment on above: Performed By: #### A DIFF, BMP, ANSG, CBC, GFR, ABOG, ANEU, ALB #### [address] [address] Lymphocyte, Absolute 1.8 10 3/mcL Normal 0.8-3.9 [facility] ([place]) Comment on above: Performed By: #### A DIFF, BMP, ANSG, CBC, GFR, ABOG, ANEU, ALB #### [address] [address] Lymphocytes/100 WBC (Bld) 35.5 % Normal 10.0-50.0 [facility] ([place]) Comment on above: Performed By: #### A DIFF, BMP, ANSG, CBC, GFR, ABOG, ANEU, ALB #### [address] [address] Monocyte, Absolute 0.4 10 3/mcL Normal 0.2-1.0 [facility] ([place]) Comment on above: Performed By: #### A DIFF, BMP, ANSG, CBC, GFR, ABOG, ANEU, ALB #### [address] [address] Monocytes/100 WBC (Bld) 7.9 % Normal 1.7-13.0 [facility] ([place]) Comment on above: Performed By: #### A DIFF, BMP, ANSG, CBC, GFR, ABOG, ANEU, ALB #### [address] [address] Neutrophils/100 WBC (Bld) 53.0 % Normal 37.0-80.0 [facility] ([place]) Comment on above: Performed By: #### A DIFF, BMP, ANSG, CBC, GFR, ABOG, ANEU, ALB #### [address] [address] .GFRon 08-26-2023 GFR Non- 60 ml/min/1.73sqm Normal [facility] ([place]) Comment on above: Result Comment: GFR Population [...] JOSE LUIS, CBC, GFR, ADIFF, BMP #### [address] [address] GFR 73 ml/min/1.73sqm Normal [facility] ([place]) Comment on above: Result Comment: GFR Population [...] JOSE LUIS, CBC, GFR, ADIFF, BMP #### [address] [address] .NEUABSon 08-26-2023 Neutrophil, Absolute 2.7 10 3/mcL Low 2.9-6.2 [facility] ([place]) Comment on above: Performed By: #### A DIFF, BMP, ANSG, CBC, GFR, ABOG, ANEU, ALB #### [address] [address] ALBon 08-26-2023 Albumin Level 4.1 G/dL Normal 3.4-4.8 [facility] ([place]) Comment on above: Performed By: #### A JOSE LUIS, CBC, GFR, ADIFF, BMP #### [address] [address] BMPon 08-26-2023 BUN/Creatinine Ratio 24 ratio Normal 7-27 [facility] ([place]) Comment on above: Performed By: #### A DIFF, BMP, ANSG, CBC, GFR, ABOG, ANEU, ALB #### [address] [address] Calcium [Mass/Vol] 8.8 mg/dL Normal 8.4-10.2 [facility] ([place]) Comment on above: Performed By: #### A DIFF, BMP, ANSG, CBC, GFR, ABOG, ANEU, ALB #### [address] [address] Chloride [Moles/Vol] 104 mmol/L Normal 98-107 [facility] ([place]) Comment on above: Performed By: #### A DIFF, BMP, ANSG, CBC, GFR, ABOG, ANEU, ALB #### [address] [address] CO2 [Moles/Vol] 26 mmol/L Normal 23-31 [facility] ([place]) Comment on above: Performed By: #### A DIFF, BMP, ANSG, CBC, GFR, ABOG, ANEU, ALB #### [address] [address] Creatinine [Mass/Vol] 0.90 mg/dL Normal 0.55-1.02 [facility] ([place]) Comment on above: Performed By: #### A DIFF, BMP, ANSG, CBC, GFR, ABOG, ANEU, ALB #### [address] [address] Electrolyte Balance 11.0 mEq/L Normal 4.0-15.0 [facility] ([place]) Comment on above: Performed By: #### A DIFF, BMP, ANSG, CBC, GFR, ABOG, ANEU, ALB #### [address] [address] Glucose [Mass/Vol] 84 mg/dL Normal 83-110 [facility] ([place]) Comment on above: Performed By: #### A DIFF, BMP, ANSG, CBC, GFR, ABOG, ANEU, ALB #### [address] [address] Potassium [Moles/Vol] 4.5 mmol/L Normal 3.5-5.1 [facility] ([place]) Comment on above: Performed By: #### A DIFF, BMP, ANSG, CBC, GFR, ABOG, ANEU, ALB #### [address] [address] Sodium [Moles/Vol] 141 mmol/L Normal 136-145 [facility] ([place]) Comment on above: Performed By: #### A DIFF, BMP, ANSG, CBC, GFR, ABOG, ANEU, ALB #### [address] [address] Urea nitrogen [Mass/Vol] 22 mg/dL High 7-18 [facility] ([place]) Comment on above: Performed By: #### A DIFF, BMP, ANSG, CBC, GFR, ABOG, ANEU, ALB #### [address] [address] CBCon 08-26-2023 Erythrocyte distribution width (RBC) [Ratio] 13.9 % Normal 11.5-14.5 [facility] ([place]) Comment on above: Order Comment: Pre-A dmission Testing Performed By: #### A DIFF, BMP, ANSG, CBC, GFR, ABOG, ANEU, ALB #### [address] [address] Hematocrit (Bld) [Volume fraction] 35.1 % Low 37.0-47.0 [facility] ([place]) Comment on above: Order Comment: Pre-A dmission Testing Performed By: #### A DIFF, BMP, ANSG, CBC, GFR, ABOG, ANEU, ALB #### [address] [address] Hgb 12.1 G/dL Normal 12.0-16.0 [facility] ([place]) Comment on above: Order Comment: Pre-A dmission Testing Performed By: #### A DIFF, BMP, ANSG, CBC, GFR, ABOG, ANEU, ALB #### [address] [address] MCH (RBC) [Entitic mass] 29.9 pg Normal 27.0-31.2 [facility] ([place]) Comment on above: Order Comment: Pre-A dmission Testing Performed By: #### A DIFF, BMP, ANSG, CBC, GFR, ABOG, ANEU, ALB #### [address] [address] MCHC 34.4 G/dL Normal 33.0-37.0 [facility] ([place]) Comment on above: Order Comment: Pre-A dmission Testing Performed By: #### A DIFF, BMP, ANSG, CBC, GFR, ABOG, ANEU, ALB #### [address] [address] MCV (RBC) [Entitic vol] 86.9 fL Normal 80.0-94.0 [facility] ([place]) Comment on above: Order Comment: Pre-A dmission Testing Performed By: #### A DIFF, BMP, ANSG, CBC, GFR, ABOG, ANEU, ALB #### [address] [address] Platelet 171 10 3/mcL Normal 130-400 [facility] ([place]) Comment on above: Order Comment: Pre-A dmission Testing Performed By: #### A DIFF, BMP, ANSG, CBC, GFR, ABOG, ANEU, ALB #### [address] [address] Platelet mean volume (Bld) [Entitic vol] 9.0 fL Normal 7.4-10.4 [facility] ([place]) Comment on above: Order Comment: Pre-A dmission Testing Performed By: #### A DIFF, BMP, ANSG, CBC, GFR, ABOG, ANEU, ALB #### [address] [address] RBC 4.04 10 6/mcL Low 4.20-5.40 [facility] ([place]) Comment on above: Order Comment: Pre-A dmission Testing Performed By: #### A DIFF, BMP, ANSG, CBC, GFR, ABOG, ANEU, ALB #### [address] [address] WBC 5.1 10 3/mcL Normal 4.6-10.8 [facility] ([place]) Comment on above: Order Comment: Pre-A dmission Testing Performed By: #### A DIFF, BMP, ANSG, CBC, GFR, ABOG, ANEU, ALB #### [address] [place], [place] [address] CT KNEE W/O CONTRAST RIGHTon 08-26-2023 CT [...] PM Ordering Provider: JOSE RAMON ZULUAGA Normal [facility] ([place]) Gel ABOon 08-26-2023 ABO/Rh Interp Positive Invalid Interpretation Code [facility] ([place]) Comment on above: Performed By: #### A JOSE LUIS, CBC, GFR, ADIFF, BMP #### [address] [place], [place] [address] Gel ABSon 08-26-2023 Antibody Screen Gel Negative Normal [facility] ([place]) Comment on above: Performed By: #### A JOSE LUIS, CBC, GFR, ADIFF, BMP #### [address] [place], [place] [address] LABORATORYOrdered By: Blossom Zarate on 08-26-2023 ABO/Rh [...] [Vol rate/Area] 73 ml/min/1.73sqm Invalid Interpretation Code AO Chemistry S [...] Comment on above: Result Comment: [place] [id number] MRSA PCR Int MRSA DNA not detecte [...] MRSA (PCR) Not detected Normal Not Detected [facility] ([place] Comment on above: Result Comment: [place] [id number] Performed By: #### A JOSE LUIS, CBC, GFR, ADIFF, BMP #### [address] [address] MRSA PCR Int Normal [facility] ([place]) Comment on above: Result Comment: MRSA DNA [...] JOSE LUIS, CBC, GFR, ADIFF, BMP #### [address] [place], [place] [address] Absolute lymphocyte countOrd ered By: Alex Giang on 08-12-2023 Lymphocytes Auto (Unsp spec) [#/Vol] 1.91 10*3/uL 0.83-4.51 [facility] Basophil percentageOrdered B y: Alex Giang on 08-12-2023 Basophils/100 WBC (Bld) 1.2 % 0-1 [facility] Bilirubin [Mass/Vol] 0.40 mg/dL 0.20-1.00 [facility] Comment on above: For patients on eltr ombopag therapy, use of Dimension [place] TBIL is not recommended. Chloride [Moles/Vol] 110 mmol/L 98-107 [facility] Eosinophils/100 WBC (Bld) 2.8 % 0-5 [facility] Glucose [Mass/Vol] 114 mg/dL 74-106 [facility] Comment on above: Fasting Glucose resu lt from 100 to 125 mg/dL suggests IMPAIRED HOMEOSTASIS per A.D.A. criteria. Neutrophils (Bld) [#/Vol] 1.8 10*3/uL 2.0-7.7 [facility] Neutrophils/100 WBC (Bld) 42.4 % 47-70 [facility] Potassium [Moles/Vol] 3.9 mmol/L 3.5-5.1 [facility] Protein [Mass/Vol] 6.7 g/dL 6.4-8.2 [facility] Sodium [Moles/Vol] 139 mmol/L 136-145 [facility] WBC (Bld) [#/Vol] 4.3 10*3/uL 4.4-11.0 [facility] Blood erythrocytes count (nu mber/volume)Ordered By: Alex Giang on 08-12-2023 RBC (Bld) [#/Vol] 4.01 10*6/uL 4.2-5.4 [facility] Blood hemoglobin measurement (mass/volume)Ordered By: Alex Giang on 08-12-2023 Hemoglobin (Bld) [Mass/Vol] 12.0 g/dL 12.0-15.0 [facility] Blood lymphocytes/100 leukoc ytesOrdered By: Alex Giang on 08-12-2023 Lymphocytes/100 WBC (Bld) 44.0 % 19-41 [facility] Blood monocytes/100 leukocyt esOrdered By: Alex Giang on 08-12-2023 Monocytes/100 WBC (Bld) 9.4 % 0-10 [facility] Blood platelet mean volumeOr dered By: Alex Giang on 08-12-2023 Platelet mean volume (Bld) [Entitic vol] 10.5 fL 6.2-12.0 [facility] Determination of erythrocyte mean corpuscular volume (MCV)Ordered By: Alex Giang on 08-12-2023 MCV (RBC) [Entitic vol] 90.0 fL 81-99 [facility] Erythrocyte sedimentation ra teOrdered By: Alex Giang on 08-12-2023 ESR (Bld) [Velocity] 3 mm/h 0-30 [facility] Hematocrit Auto (Bld) [Volum e fraction]Ordered By: Alex Giang on 08-12-2023 Hematocrit (Bld) [Volume fraction] 36.1 % 37-47 [facility] Laboratory - Chemistry and C hemistry - challengeOrdered By: Alex Giang on 08-12-2023 ALP [Catalytic activity/Vol] 81 U/L 45-117 [facility] ALT [Catalytic activity/Vol] 22 U/L 13-56 [facility] CO2 [Moles/Vol] 25.0 mmol/L 21.0-32.0 [facility] Cobalamin (Vitamin B12) [Mass/Vol] 335 pg/mL 211-911 [facility] Free T4 [Mass/Vol] 0.84 ng/dL 0.76-1.46 [facility] Globulin (S) [Mass/Vol] 2.9 g/dL 2.2-4.2 [facility] Urea nitrogen/Creatinine [Mass ratio] 24.1 mg/mg 10-20 [facility] Laboratory - Hematology and Cell countsOrdered By: Alex Giang on 08-12-2023 Erythrocyte distribution width (RBC) [Entitic vol] 43.3 fL 35.1-43.9 [facility] Erythrocyte distribution width (RBC) [Ratio] 13.2 % 11.6-14.6 [facility] Immature granulocytes/100 WBC (Bld) 0.200 % 0.0-0.9 [facility] Comment on above: IG% - Immature Granu locytes (promyelocytes, myelocytes and metamyelocytes) > 1% indicates that a LEFT SHIFT is Present. MCH (RBC) [Entitic mass] 29.9 pg 27.0-32.0 [facility] Nucleated RBC/100 WBC (Bld) [Ratio] 0 % 0-5 [facility] MCHC Auto (RBC) [Mass/Vol]Or dered By: Alex Giang on 08-12-2023 MCHC (RBC) [Mass/Vol] 33.2 g/dL 32-36 [facility] No Panel InformationOrdered By: Alex Giang on 08-12-2023 Estimated GFR (MDRD) Amer 90 mL/min >60 [facility] Comment on above: GFR Calc Estimated GFR (MDRD) Non-Af Amer 74 mL/min >60 [facility] Comment on above: Non- GFR Calc Thyroid Stimulating Hormone (TSH) 2.69 uIU/mL 0.358-3.74 [facility] Vitamin D 25-Hydroxy 31.4 ng/mL [facility] Comment on above: Vitamin D 25(OH) Sta tus Range Deficiency <20 ng/mL (50nmol/L) Insufficiency 20 - 30 ng/mL (50 - 75 nmol/L) Sufficiency 30 - 100 ng/mL (75 - 250 nmol/L) Toxicity >100 ng/mL (>250 nmol/L) Platelets bldOrdered By: Andre Giang on 08-12-2023 Platelets (Bld) [#/Vol] 184 10*3/uL 150-450 [facility] Serum or plasma albumin josie urement (mass/volume)Ordered By: Alex Giang on 08-12-2023 Albumin [Mass/Vol] 3.8 g/dL 3.2-5.0 [facility] Serum or plasma albumin/glob ulin mass ratioOrdered By: Alex Giang on 08-12-2023 Albumin/Globulin [Mass ratio] 1.3 {ratio} 0.9-2.4 [facility] Serum or plasma calcium josie urement (mass/volume)Ordered By: Alex Giang on 08-12-2023 Calcium [Mass/Vol] 8.8 mg/dL 8.5-10.1 [facility] Serum or plasma creatinine m easurement (mass/volume)Ordered By: Alex Giang on 08-12-2023 Creatinine [Mass/Vol] 0.79 mg/dL 0.55-1.02 [facility] Comment on above: The validity of the calculated GFR & GFRAA in patients over 70 years has not been determined. Clinical correlation is essential. Serum or plasma urea nitroge n measurement (mass/volume)Ordered By: Alex Giang on 08-12-2023 Urea nitrogen [Mass/Vol] 19 mg/dL 7-18 [facility] Thin prep Papanicolaou smear with manual screeningOrdered By: Alex Giang on 08-12-2023 Thin prep Papanicolaou smear with manual screening 17 U/L 15-37 [facility] Thin prep Papanicolaou smear with manual screening 4 5-15 [facility] Whole blood hemoglobin A1c/t otal hemoglobin ratio (mass fraction)Ordered By: Alex Giang on 08-12-2023 HbA1c (Bld) [Mass fraction] 4.7 % 3.8-5.6 [facility] Comment on above: Normal < 5.7 % Predi abetic 5.7 - 6.4 % Diabetic >or= 6.5 % Please note range changes. Absolute lymphocyte countOrd ered By: Torrey Le on 05-26-2023 Lymphocytes Auto (Unsp spec) [#/Vol] 1.47 10*3/uL 0.83-4.51 [facility] Basophil percentageOrdered B y: Torrey Arely on 05-26-2023 Basophils/100 WBC (Bld) 0.0 % 0-1 [facility] Chloride [Moles/Vol] 107 mmol/L 98-107 [facility] Eosinophils/100 WBC (Bld) 0.0 % 0-5 [facility] Glucose [Mass/Vol] 97 mg/dL 74-106 [facility] Neutrophils (Bld) [#/Vol] 7.9 10*3/uL 2.0-7.7 [facility] Neutrophils/100 WBC (Bld) 78.5 % 47-70 [facility] Potassium [Moles/Vol] 4.2 mmol/L 3.5-5.1 [facility] Sodium [Moles/Vol] 139 mmol/L 136-145 [facility] WBC (Bld) [#/Vol] 10.1 10*3/uL 4.4-11.0 [facility] Blood erythrocytes count (nu mber/volume)Ordered By: Torrey Bailey on 05-26-2023 RBC (Bld) [#/Vol] 4.13 10*6/uL 4.2-5.4 [facility] Blood hemoglobin measurement (mass/volume)Ordered By: Torrey Bailey on 05-26-2023 Hemoglobin (Bld) [Mass/Vol] 12.4 g/dL 12.0-15.0 [facility] Blood lymphocytes/100 leukoc ytesOrdered By: Torrey Bailey on 05-26-2023 Lymphocytes/100 WBC (Bld) 14.6 % 19-41 [facility] Blood monocytes/100 leukocyt esOrdered By: Torrey Bailey on 05-26-2023 Monocytes/100 WBC (Bld) 6.0 % 0-10 [facility] Blood platelet mean volumeOr dered By: Torrey Bailey on 05-26-2023 Platelet mean volume (Bld) [Entitic vol] 11.0 fL 6.2-12.0 [facility] Determination of erythrocyte mean corpuscular volume (MCV)Ordered By: Torrey Bailey on 05-26-2023 MCV (RBC) [Entitic vol] 91.8 fL 81-99 [facility] Hematocrit Auto (Bld) [Volum e fraction]Ordered By: Torrey Bailey on 05-26-2023 Hematocrit (Bld) [Volume fraction] 37.9 % 37-47 [facility] INR in Blood by Coagulation assayOrdered By: Torrey Bailey on 05-26-2023 INR Coag (Bld) [Relative time] 1.0 {INR} [facility] Laboratory - Chemistry and C hemistry - challengeOrdered By: Torrey Bailey on 05-26-2023 CO2 [Moles/Vol] 27.0 mmol/L 21.0-32.0 [facility] Urea nitrogen/Creatinine [Mass ratio] 33.4 mg/mg 10-20 [facility] Laboratory - CoagulationOrde red By: Torrey Bailey on 05-26-2023 aPTT Coag (Bld) [Time] 22.8 s 24.1-36.2 [facility] PT Coag (PPP) [Time] 13.5 s 11.7-14.9 [facility] Laboratory - Hematology and Cell countsOrdered By: Torrey Bailey on 05-26-2023 Erythrocyte distribution width (RBC) [Entitic vol] 43.6 fL 35.1-43.9 [facility] Erythrocyte distribution width (RBC) [Ratio] 13.1 % 11.6-14.6 [facility] Immature granulocytes/100 WBC (Bld) 0.900 % 0.0-0.9 [facility] Comment on above: IG% - Immature Granu locytes (promyelocytes, myelocytes and metamyelocytes) > 1% indicates that a LEFT SHIFT is Present. MCH (RBC) [Entitic mass] 30.0 pg 27.0-32.0 [facility] Nucleated RBC/100 WBC (Bld) [Ratio] 0 % 0-5 [facility] MCHC Auto (RBC) [Mass/Vol]Or dered By: Torrey Bailey on 05-26-2023 MCHC (RBC) [Mass/Vol] 32.7 g/dL 32-36 [facility] No Panel InformationOrdered By: Torrey Bailey on 05-26-2023 Estimated GFR (MDRD) Amer 80 mL/min >60 [facility] Comment on above: GFR Calc Estimated GFR (MDRD) Non-Af Amer 66 mL/min >60 [facility] Comment on above: Non- GFR Calc Platelets bldOrdered By: Efren Bailey on 05-26-2023 Platelets (Bld) [#/Vol] 179 10*3/uL 150-450 [facility] Serum or plasma calcium josie urement (mass/volume)Ordered By: Torrey Bailey on 05-26-2023 Calcium [Mass/Vol] 8.7 mg/dL 8.5-10.1 [facility] Serum or plasma creatinine m easurement (mass/volume)Ordered By: Torrey Bailey on 05-26-2023 Creatinine [Mass/Vol] 0.87 mg/dL 0.55-1.02 [facility] Comment on above: The validity of the calculated GFR & GFRAA in patients over 70 years has not been determined. Clinical correlation is essential. Serum or plasma urea nitroge n measurement (mass/volume)Ordered By: Torrey Bailey on 05-26-2023 Urea nitrogen [Mass/Vol] 29 mg/dL 7-18 [facility] Thin prep Papanicolaou smear with manual screeningOrdered By: Torrey Bailey on 05-26-2023 Thin prep Papanicolaou smear with manual screening 5 5-15 [facility] Absolute lymphocyte counton 10-05-2022 Lymphocytes Auto (Unsp spec) [#/Vol] 2.17 10*3/uL 0.83-4.51 [facility] Work Phone: Basophil percentageon 2021 Basophils/100 WBC (Bld) 1.0 % 0-1 [facility] Work Phone: Bilirubin [Mass/Vol] 0.40 mg/dL 0.20-1.00 [facility] Work Phone: Comment on above: For patients on eltr ombopag therapy, use of Dimension [place] TBIL is not recommended. Chloride [Moles/Vol] 108 mmol/L 98-107 [facility] Work Phone: Cholesterol [Mass/Vol] 177 mg/dL <200 [facility] Work Phone: Comment on above: <200 mg/dL Desirable 200-240 mg/dL Borderline >240 mg/dL High Risk Eosinophils/100 WBC (Bld) 3.2 % 0-5 [facility] Work Phone: Glucose [Mass/Vol] 94 mg/dL 74-106 [facility] Work Phone: [phone] Neutrophils (Bld) [#/Vol] 2.2 10*3/uL 2.0-7.7 [facility] Work Phone: Neutrophils/100 WBC (Bld) 43.3 % 47-70 [facility] Work Phone: [phone] Potassium [Moles/Vol] 4.1 mmol/L 3.5-5.1 [facility] Work Phone: [phone] Protein [Mass/Vol] 6.4 g/dL 6.4-8.2 [facility] Work Phone: Sodium [Moles/Vol] 142 mmol/L 136-145 [facility] Work Phone: Triglyceride [Mass/Vol] 188 mg/dL <199 [facility] Work Phone: Comment on above: The drugs N-Acetylcy steine and Metamizole may falsely depress this assay.Serum Triglycerides Reference Interval Normal <150 mg/dL Borderline high 150 - 199 mg/dL High 200 - 499 mg/dL Very High > or = 500 mg/dL WBC (Bld) [#/Vol] 5.0 10*3/uL 4.4-11.0 [facility] Work Phone: Blood erythrocytes count (nu mber/volume)on 10-05-2022 RBC (Bld) [#/Vol] 4.03 10*6/uL 4.2-5.4 [facility] Work Phone: [phone] Blood hemoglobin measurement (mass/volume)on 10-05-2022 Hemoglobin (Bld) [Mass/Vol] 12.2 g/dL 12.0-15.0 [facility] Work Phone: Blood lymphocytes/100 leukoc yteson 10-05-2022 Lymphocytes/100 WBC (Bld) 43.5 % 19-41 [facility] Work Phone: Blood monocytes/100 leukocyt eson 10-05-2022 Monocytes/100 WBC (Bld) 8.8 % 0-10 [facility] Work Phone: Blood platelet mean volumeon 10-05-2022 Platelet mean volume (Bld) [Entitic vol] 10.6 fL 6.2-12.0 [facility] Work Phone: Determination of erythrocyte mean corpuscular volume (MCV)on 10-05-2022 MCV (RBC) [Entitic vol] 89.6 fL 81-99 [facility] Work Phone: Hematocrit Auto (Bld) [Volum e fraction]on 10-05-2022 Hematocrit (Bld) [Volume fraction] 36.1 % 37-47 [facility] Work Phone: Laboratory - Chemistry and C hemistry - challengeon 10-05-2022 ALP [Catalytic activity/Vol] 80 U/L 45-117 [facility] Work Phone: ALT [Catalytic activity/Vol] 22 U/L 13-56 [facility] Work Phone: CO2 [Moles/Vol] 26.0 mmol/L 21.0-32.0 [facility] Work Phone: Globulin (S) [Mass/Vol] 2.7 g/dL 2.2-4.2 [facility] Work Phone: Urea nitrogen/Creatinine [Mass ratio] 31.0 mg/mg 10-20 [facility] Work Phone: Laboratory - Hematology and Cell countson 10-05-2022 Erythrocyte distribution width (RBC) [Entitic vol] 43.9 fL 35.1-43.9 [facility] Work Phone: Erythrocyte distribution width (RBC) [Ratio] 13.2 % 11.6-14.6 [facility] Work Phone: Immature granulocytes/100 WBC (Bld) 0.200 % 0.0-0.9 [facility] Work Phone: [phone] Comment on above: IG% - Immature Granu locytes (promyelocytes, myelocytes and metamyelocytes) > 1% indicates that a LEFT SHIFT is Present. MCH (RBC) [Entitic mass] 30.3 pg 27.0-32.0 [facility] Work Phone: [phone] Nucleated RBC/100 WBC (Bld) [Ratio] 0 % 0-5 [facility] Work Phone: [phone] MCHC Auto (RBC) [Mass/Vol]on 10-05-2022 MCHC (RBC) [Mass/Vol] 33.8 g/dL 32-36 [facility] Work Phone: [phone] Panel Informationon 10-05 Estimated GFR (MDRD) Amer 96 mL/min >60 [facility] Work Phone: [phone] Comment on above: GFR Calc Estimated GFR (MDRD) Non-Af Amer 80 mL/min >60 [facility] Work Phone: [phone] Comment on above: Non- GFR Calc Vitamin D 25-Hydroxy 26.0 ng/mL [facility] Work Phone: [phone] Comment on above: Vitamin D 25(OH) Sta tus Range Deficiency <20 ng/mL (50nmol/L) Insufficiency 20 - 30 ng/mL (50 - 75 nmol/L) Sufficiency 30 - 100 ng/mL (75 - 250 nmol/L) Toxicity >100 ng/mL (>250 nmol/L) Platelets bldon 10-05-2022 Platelets (Bld) [#/Vol] 182 10*3/uL 150-450 [facility] Work Phone: [phone] Serum or plasma albumin josie urement (mass/volume)on 10-05-2022 Albumin [Mass/Vol] 3.7 g/dL 3.2-5.0 [facility] Work Phone: [phone] Serum or plasma albumin/glob ulin mass ratioon 10-05-2022 Albumin/Globulin [Mass ratio] 1.4 {ratio} 0.9-2.4 [facility] Work Phone: [phone] Serum or plasma calcium josie urement (mass/volume)on 10-05-2022 Calcium [Mass/Vol] 8.5 mg/dL 8.5-10.1 [facility] Work Phone: [phone] Serum or plasma cholesterol in HDL measurement (mass/volume)on 10-05-2022 Cholesterol in HDL [Mass/Vol] 72 mg/dL >40 [facility] Work Phone: Comment on above: The drugs N-Acetylcy steine and Metamizole may falsely depress this assay. Reference Range HDL <40 mg/dL Low HDL Cholesterol HDL >or= 60 mg/dL High HDL Cholesterol Serum or plasma cholesterol in VLDL measurement (mass/volume)on 10-05-2022 Cholesterol in VLDL [Mass/Vol] 38 mg/dL 5-40 [facility] Work Phone: [phone] Serum or plasma creatinine m easurement (mass/volume)on 10-05-2022 Creatinine [Mass/Vol] 0.74 mg/dL 0.55-1.02 [facility] Work Phone: [phone] Comment on above: The validity of the calculated GFR & GFRAA in patients over 70 years has not been determined. Clinical correlation is essential. Serum or plasma low density lipoprotein (LDL) cholesterol measurement (mass/volume)on 10-05-2022 Cholesterol in LDL [Mass/Vol] 67 mg/dL 0-130 [facility] Work Phone: [phone] Serum or plasma urea nitroge n measurement (mass/volume)on 10-05-2022 Urea nitrogen [Mass/Vol] 23 mg/dL 7-18 [facility] Work Phone: [phone] Thin prep Papanicolaou smear with manual screeningon 10-05-2022 Thin prep Papanicolaou smear with manual screening 19 U/L 15-37 [facility] Work Phone: [phone] Thin prep Papanicolaou smear with manual screening 8 5-15 [facility] Work Phone: Absolute lymphocyte counton 02-18-2022 Lymphocytes Auto (Unsp spec) [#/Vol] 1.82 10*3/uL 0.83-4.51 [facility] Work Phone: Basophil percentageon 2021 Basophils/100 WBC (Bld) 0.7 % 0-1 [facility] Work Phone: Bilirubin [Mass/Vol] 0.60 mg/dL 0.20-1.00 [facility] Work Phone: Comment on above: For patients on eltr ombopag therapy, use of Dimension [place] TBIL is not recommended. Chloride [Moles/Vol] 109 mmol/L 98-107 [facility] Work Phone: Eosinophils/100 WBC (Bld) 1.3 % 0-5 [facility] Work Phone: Glucose [Mass/Vol] 95 mg/dL 74-106 [facility] Work Phone: Neutrophils (Bld) [#/Vol] 3.0 10*3/uL 2.0-7.7 [facility] Work Phone: Neutrophils/100 WBC (Bld) 56.1 % 47-70 [facility] Work Phone: Potassium [Moles/Vol] 4.3 mmol/L 3.5-5.1 [facility] Work Phone: Protein [Mass/Vol] 6.9 g/dL 6.4-8.2 [facility] Work Phone: Sodium [Moles/Vol] 140 mmol/L 136-145 [facility] Work Phone: WBC (Bld) [#/Vol] 5.4 10*3/uL 4.4-11.0 [facility] Work Phone: Blood erythrocytes count (nu mber/volume)on 02-18-2022 RBC (Bld) [#/Vol] 4.01 10*6/uL 4.2-5.4 [facility] Work Phone: Blood hemoglobin measurement (mass/volume)on 02-18-2022 Hemoglobin (Bld) [Mass/Vol] 12.0 g/dL 12.0-15.0 [facility] Work Phone: Blood lymphocytes/100 leukoc yteson 02-18-2022 Lymphocytes/100 WBC (Bld) 33.7 % 19-41 [facility] Work Phone: [phone] Blood monocytes/100 leukocyt eson 02-18-2022 Monocytes/100 WBC (Bld) 7.8 % 0-10 [facility] Work Phone: [phone] Blood platelet mean volumeon 02-18-2022 Platelet mean volume (Bld) [Entitic vol] 11.0 fL 6.2-12.0 [facility] Work Phone: [phone] Determination of erythrocyte mean corpuscular volume (MCV)on 02-18-2022 MCV (RBC) [Entitic vol] 90.0 fL 81-99 [facility] Work Phone: [phone] Hematocrit Auto (Bld) [Volum e fraction]on 02-18-2022 Hematocrit (Bld) [Volume fraction] 36.1 % 37-47 [facility] Work Phone: Laboratory - Chemistry and C hemistry - challengeon 02-18-2022 ALP [Catalytic activity/Vol] 82 U/L 45-117 [facility] Work Phone: [phone] ALT [Catalytic activity/Vol] 18 U/L 13-56 [facility] Work Phone: [phone] CO2 [Moles/Vol] 24.0 mmol/L 21.0-32.0 [facility] Work Phone: [phone] Globulin (S) [Mass/Vol] 2.8 g/dL 2.2-4.2 [facility] Work Phone: [phone] Urea nitrogen/Creatinine [Mass ratio] 25.7 mg/mg 10-20 [facility] Work Phone: [phone] Laboratory - Hematology and Cell countson 02-18-2022 Erythrocyte distribution width (RBC) [Entitic vol] 44.4 fL 35.1-43.9 [facility] Work Phone: [phone] Erythrocyte distribution width (RBC) [Ratio] 13.4 % 11.6-14.6 [facility] Work Phone: [phone] Immature granulocytes/100 WBC (Bld) 0.400 % 0.0-0.9 [facility] Work Phone: [phone] Comment on above: IG% - Immature Granu locytes (promyelocytes, myelocytes and metamyelocytes) > 1% indicates that a LEFT SHIFT is Present. MCH (RBC) [Entitic mass] 29.9 pg 27.0-32.0 [facility] Work Phone: [phone] Nucleated RBC/100 WBC (Bld) [Ratio] 0 % 0-5 [facility] Work Phone: [phone] MCHC Auto (RBC) [Mass/Vol]on 02-18-2022 MCHC (RBC) [Mass/Vol] 33.2 g/dL 32-36 [facility] Work Phone: No Panel Informationon 02-18 Estimated GFR (MDRD) Amer 103 mL/min >60 [facility] Work Phone: [phone] Comment on above: GFR Calc Estimated GFR (MDRD) Non-Af Amer 85 mL/min >60 [facility] Work Phone: Comment on above: Non- GFR Calc Platelets bldon 02-18-2022 Platelets (Bld) [#/Vol] 205 10*3/uL 150-450 [facility] Work Phone: [phone] Serum or plasma albumin josie urement (mass/volume)on 02-18-2022 Albumin [Mass/Vol] 4.1 g/dL 3.2-5.0 [facility] Work Phone: [phone] Serum or plasma albumin/glob ulin mass ratioon 02-18-2022 Albumin/Globulin [Mass ratio] 1.5 {ratio} 0.9-2.4 [facility] Work Phone: Serum or plasma calcium josie urement (mass/volume)on 02-18-2022 Calcium [Mass/Vol] 9.6 mg/dL 8.5-10.1 [facility] Work Phone: Serum or plasma creatinine m easurement (mass/volume)on 02-18-2022 Creatinine [Mass/Vol] 0.70 mg/dL 0.55-1.02 [facility] Work Phone: Comment on above: The validity of the calculated GFR & GFRAA in patients over 70 years has not been determined. Clinical correlation is essential. Serum or plasma urea nitroge n measurement (mass/volume)on 02-18-2022 Urea nitrogen [Mass/Vol] 18 mg/dL 7-18 [facility] Work Phone: Thin prep Papanicolaou smear with manual screeningon 02-18-2022 Thin prep Papanicolaou smear with manual screening 15 U/L 15-37 [facility] Work Phone: Thin prep Papanicolaou smear with manual screening 7 5-15 [facility] Work Phone: [facility] FRED MON ([id number]) 1940 F Date Time Provider Department 07/15/21 JIN HINDS ME2E During your visit today, we recorded the [...] has travel plans. Patient will go to [place] for 3 months in November Patient is [...] an update on misplaced medical records. Merly Agustin [facility] 07/22/2021 11:48 AM Signed I called patient [...] would give her a call back. 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 The [...] and healthy. 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 Normal [facility] Vital Signs Date Time Vital Sign Value Performing Clinician Facility 01-04-2024 08:37-0500 Body temperature 98.3 [degF] Dr. Alex Giang Work Phone: [facility] 01-04-2024 08:37-0500 Diastolic blood pressure 82 mm[Hg] Dr. Alex Giang Work Phone: [facility] 01-04-2024 08:37-0500 Heart rate 82 /min Dr. Alex Giang Work Phone: [facility] 01-04-2024 08:37-0500 Respiratory rate 15 /min Dr. Alex Giang Work Phone: [facility] 01-04-2024 08:37-0500 SaO2% (BldA) [Mass fraction] 96 % Dr. Alex Giang Work Phone: [facility] 01-04-2024 08:37-0500 Systolic blood pressure 146 mm[Hg] Dr. Alex Giang Work Phone: [facility] 01-03-2024 13:15-0500 Body mass index (BMI) [Ratio] 31.2 kg/m2 Dr. Alex Giang Work Phone: [facility] 01-03-2024 13:15-0500 Body weight 85.[address] Alex Giang Work Phone: [facility] 12-28-2023 13:16-0500 Body height 165.[address] Alex Giang Work Phone: [facility] 12-28-2023 13:16-0500 Body weight 85.[address] Alex Giang Work Phone: [facility] 12-28-2023 12:48-0500 Body temperature 96.8 [degF] Dr. Alex Giang Work Phone: [phone] [place] [address] 12-28-2023 12:48-0500 Diastolic blood pressure 64 mm[Hg] Dr. Alex Giang Work Phone: [phone] [place] [address] 12-28-2023 12:48-0500 Heart rate 68 /min Dr. Alex Giang Work Phone: [facility] 12-28-2023 12:48-0500 Respiratory rate 18 /min Dr. Alex Giang Work Phone: [phone] [place] [address] 12-28-2023 12:48-0500 SaO2% (BldA) [Mass fraction] 98 % Dr. Alex Giang Work Phone: [phone] [place] [address] 12-28-2023 12:48-0500 Systolic blood pressure 136 mm[Hg] Dr. Alex Giang Work Phone: [facility] 12-27-2023 11:38-0500 Body mass index (BMI) [Ratio] 31.2 kg/m2 Dr. Alex Giang Work Phone: [facility] 12-23-2023 12:13-0500 Body temperature 98.7 [degF] Dr. Alex Giang Work Phone: [phone] [place] [address] 12-23-2023 09:30-0500 Diastolic blood pressure 73 mm[Hg] Dr. Alex Giang Work Phone: [phone] [place] [address] 12-23-2023 09:30-0500 Heart rate 69 /min Dr. Alex Giang Work Phone: [facility] 12-23-2023 09:30-0500 Respiratory rate 16 /min Dr. Alex Giang Work Phone: [facility] 12-23-2023 09:30-0500 SaO2% (BldA) [Mass fraction] 99 % Dr. Alex Giang Work Phone: [facility] 12-23-2023 09:30-0500 Systolic blood pressure 152 mm[Hg] Dr. Alex Giang Work Phone: [facility] 12-21-2023 12:46-0500 Inhaled oxygen flow rate 2 L/min Dr. Alex Giang Work Phone: [facility] 12-21-2023 12:38-0500 Body height 165.[address] Alex Giang Work Phone: [facility] 12-21-2023 12:38-0500 Body mass index (BMI) [Ratio] 31.8 kg/m2 Dr. Alex Giang Work Phone: [facility] 12-21-2023 12:38-0500 Body weight [address] Alex Giang Work Phone: [facility] 09-21-2023 14:24-0500 Body temperature 97.88 [degF] DR JOSE RAMON ZULUAGA MD [facility] 09-21-2023 14:24-0500 Diastolic Blood Pressure Non-Invasive 56 mm[Hg] DR JOSE RAMON ZULUAGA MD [facility] 09-21-2023 14:24-0500 Heart rate 66 /min DR JOSE RAMON ZULUAGA MD [facility] 09-21-2023 14:24-0500 Respiratory rate 20 /min DR JOSE RAMON ZULUAGA MD [facility] 09-21-2023 14:24-0500 Systolic Blood Pressure Non-Invasive 157 mm[Hg] DR JOSE RAMON ZULUAGA MD [facility] 09-21-2023 11:05-0500 Diastolic Blood Pressure Non-Invasive 67 mm[Hg] DR JOSE RAMON ZULUAGA MD [facility] 09-21-2023 11:05-0500 Systolic Blood Pressure Non-Invasive 158 mm[Hg] DR JOSE RAMON ZULUAGA MD [facility] 09-21-2023 10:31-0500 Body temperature 97.88 [degF] DR JOSE RAMON ZULUAGA MD [facility] 09-21-2023 10:31-0500 Diastolic Blood Pressure Non-Invasive 100 mm[Hg] DR JOSE RAMON ZULUAGA MD [facility] 09-21-2023 10:31-0500 Heart rate 75 /min DR JOSE RAMON ZULUAGA MD [facility] 09-21-2023 10:31-0500 Respiratory rate 20 /min DR JOSE RAMON ZULUAGA MD [facility] 09-21-2023 10:31-0500 Systolic Blood Pressure Non-Invasive 159 mm[Hg] DR JOSE RAMON ZULUAGA MD [facility] 09-21-2023 07:14-0500 Body temperature 97.88 [degF] DR JOSE RAMON ZULUAGA MD [facility] 09-21-2023 07:14-0500 Heart rate 68 /min DR JOSE RAMON ZULUAGA MD [facility] 09-21-2023 07:14-0500 Respiratory rate 20 /min DR JOSE RAMON ZULUAGA MD [facility] 09-20-2023 23:08-0500 Heart rate 67 /min DR JOSE RAMON ZULUAGA MD [facility] 09-20-2023 14:22-0500 Body temperature 96.62 [degF] DR JOSE RAMON ZULUAGA MD [facility] 09-20-2023 14:22-0500 Heart rate 58 /min DR JOSE RAMON ZULUAGA MD [facility] 09-20-2023 13:47-0500 Body height 165.[address] JOSE RAMON ZULUAGA MD [facility] 09-20-2023 13:47-0500 Body weight 87.[address] JOSE RAMON ZULUAGA MD [facility] 09-20-2023 13:47-0500 Body weight 32.25 kg/m2 DR JOSE RAMON ZULUAGA MD [facility] 09-20-2023 13:38-0500 Body temperature 96.62 [degF] DR JOSE RAMON ZULUAGA MD [facility] 09-20-2023 13:38-0500 Heart rate 54 /min DR JOSE RAMON ZULUAGA MD [facility] 09-20-2023 12:25-0500 Body temperature 97.16 [degF] DR JOSE RAMON ZULUAGA MD [facility] 09-20-2023 12:20-0500 Respiratory Rate - Anes 21 br/min DR JOSE RAMON ZULUAGA MD [facility] 09-20-2023 12:15-0500 Respiratory Rate - Anes 25 br/min DR JOSE RAMON ZULUAGA MD [facility] 09-20-2023 12:10-0500 Respiratory Rate - Anes 26 br/min DR JOSE RAMON ZULUAGA MD [facility] 09-20-2023 10:30-0500 Heart rate 59 /min DR JOSE RAMON ZULUAGA MD [facility] 09-20-2023 08:52-0500 Body height 165.[address] JOSE RAMON ZULUAGA MD [facility] 09-20-2023 08:52-0500 Body temperature 97.7 [degF] DR JOSE RAMON ZULUAGA MD [facility] 09-20-2023 08:52-0500 Body weight 87.[address] JOSE RAMON ZULUAGA MD [facility] 09-20-2023 08:52-0500 Heart rate 65 /min DR JOSE RAMON ZULUAGA MD [facility] 08-26-2023 11:55-0400 Blood Pressure Cuff Size DR JOSE RAMON ZULUAGA MD [facility] 08-26-2023 11:55-[address] JOSE RAMON ZULUAGA MD [facility] 08-26-2023 11:55-[address] JOSE RAMON Sol [facility] 08-26-2023 11:55-0400 Body height 165.[address] JOSE RAMON ZULUAGA MD [facility] 08-26-2023 11:55-0400 Body weight 87.[address] JOSE RAMON ZULUAGA MD [facility] 08-26-2023 11:55-0400 Body weight 32.25 kg/m2 DR JOSE RAMON ZULUAGA MD [facility] 08-26-2023 11:55-0400 Diastolic Blood Pressure Non-Invasive [address] JOSE RAMON ZULUAGA MD [facility] 08-26-2023 11:55-0400 Heart rate 64 /min DR JOSE RAMON ZULUAGA MD [facility] 08-26-2023 11:55-0400 Systolic Blood Pressure Non-Invasive [address] JOSE RAMON ZULUAGA MD [facility] 05-26-2023 16:15-0400 Diastolic blood pressure 109 mm[Hg] [facility] 05-26-2023 16:15-0400 Heart rate 55 /min [facility] 05-26-2023 16:15-0400 Respiratory rate 18 /min [facility] 05-26-2023 16:15-0400 Systolic blood pressure 150 mm[Hg] [facility] 05-26-2023 14:08-0400 SaO2% (BldA) [Mass fraction] 96 % [facility] 05-26-2023 13:59-0400 Body height 165.1 cm [facility] 05-26-2023 13:59-0400 Body temperature 97 [degF] [facility] 05-24-2023 21:07-0400 Body height 165.1 cm [facility] 05-24-2023 21:07-0400 Body mass index (BMI) [Ratio] 33.3 kg/m2 [facility] 05-24-2023 21:07-0400 Body temperature 97.8 [degF] [facility] 05-24-2023 21:07-0400 Body weight 90.8 kg [facility] 05-24-2023 21:07-0400 Diastolic blood pressure 96 mm[Hg] [facility] 05-24-2023 21:07-0400 Heart rate 93 /min [facility] 05-24-2023 21:07-0400 Respiratory rate 16 /min [facility] 05-24-2023 21:07-0400 SaO2% (BldA) [Mass fraction] 98 % [facility] 05-24-2023 21:07-0400 Systolic blood pressure 227 mm[Hg] [facility] 06-23-2022 09:23-0400 Body height 165.[address] Alex Giang Work Phone: [facility] Work Phone: 06-23-2022 09:22-0400 Body mass index (BMI) [Ratio] 31.3 kg/m2 Dr. Alex Giang Work Phone: [facility] Work Phone: 06-23-2022 09:22-0400 Body weight 85.[address] Alex Giang Work Phone: [facility] Work Phone: 06-23-2022 09:22-0400 Diastolic blood pressure 83 mm[Hg] Dr. Alex Giang Work Phone: [facility] Work Phone: 06-23-2022 09:22-0400 Systolic blood pressure 167 mm[Hg] Dr. Alex Giang Work Phone: [facility] Work Phone: Encounters Encounter Date Encounter Type Care Provider Facility Start: 07-11-2025 ambulatory Alex Giang Facilit y:[facility] Start: 07-04-2025 ambulatory Alex Giang Facilit y:[facility] Start: 06-29-2025 End: 06-29-2025 Transcribe Orders Alex Giang MD Work Phone: [facility] Comment on above: Dementia, unspecifie d dementia severity, unspecified dementia type, unspecified whether behavioral, psychotic, or mood disturbance or anxiety (HCC) (Primary Dx) Start: 06-13-2025 End: 06-13-[address] Alex Giang MD Work Phone: -[facility] Start: 06-13-2025 End: 06-13-[address] Alex Giang MD -[facility] Work Phone: Start: 06-13-2025 End: 06-13-2025 ambulatory Alex Giang Facility:[facility] Start: 06-10-2025 End: 06-10-[address] Alex Giang MD Work Phone: -[facility]patient [facility] Start: 06-10-2025 End: 06-10-[address] Alex Giang MD -[facility] Work Phone: Start: 06-10-2025 End: 06-10-2025 ambulatory Alex Giang Facility:[facility] Start: 02-27-2025 End: 02-27-[address] Alex Giang MD -[facility] Start: 02-27-2025 End: 02-27-2025 ambulatory Alex Giang Facility:[facility] Start: 10-09-2024 ambulatory Alex Giang Facilit y:[facility] Start: 09-13-2024 End: 09-13-2024 [facility] Start: 08-10-2024 End: 08-10-2024 Emergency department patient visit Víctor Patel Facility:[facility] Start: 08-07-2024 End: 08-07-2024 ambulatory Alex Giang Facility:[facility] Start: 12-23-2023 Non-patient / Non-visit Dr. Ina Giang Work Phone: [facility] Start: 12-23-2023 End: 12-23-[address] Alex Giang Work Phone: [facility] Work Phone: Start: 12-23-2023 End: 12-23-[address] Alex Giang Work Phone: [facility] Work Phone: Start: 12-23-2023 End: 01-04-2024 Evaluation and management of inpatient Dr. Alex Ginag Work Phone: [facility] Start: 12-22-2023 Non-patient / Non-visit Dr. Ina Giang Work Phone: [facility] [facility] Work Phone: Start: 12-21-2023 End: 12-23-2023 Evaluation and management of inpatient Dr. Alex Giang Work Phone: [facility] Work Phone: Start: 12-08-2023 End: 12-08-2023 Non-patient / Non-visit Dr. Alex Giang Work Phone: [facility] Work Phone: Start: 11-30-2023 End: 11-30-[address] [facility] Work Phone: Start: 11-30-2023 End: 11-30-[address] [facility] Work Phone: Start: 11-03-[address] JOSE RAMON ALTAMIRANO MD Facility:B Start: 11-02-[address] JOSE RAMON ALTAMIRANO MD Facility:B Start: 10-27-2023 End: 10-27-[address] [facility] Work Phone: Start: 10-27-2023 End: 10-27-[address] [facility] Work Phone: Start: 10-14-2023 End: 10-14-[address] [facility] Work Phone: Start: 10-14-2023 End: 10-14-[address] [facility] Work Phone: Start: 09-20-2023 End: 09-21-2023 ambulatory ALEX GIANG MD Facility:B Start: 09-20-2023 End: 09-21-[address] JOSE RAMON ZULUAGA MD [facility] Start: 08-26-2023 End: 08-27-[address] JOSE RAMON ZULUAGA MD Facility:B Start: 08-26-2023 End: 08-26-[address] JOSE RAMON ZULUAGA MD [facility] Start: 08-26-2023 End: 08-26-[address] JOSE RAMON ZULUAGA MD [facility] Start: 08-12-2023 End: 08-12-2023 Patient encounter procedure [facility] Start: 07-18-2023 End: 07-18-[address] [facility] Work Phone: Start: 07-18-2023 End: 07-18-[address] [facility] Work Phone: Start: 07-04-2023 End: 07-04-[address] [facility] Work Phone: Start: 07-04-2023 End: 07-04-[address] [facility] Work Phone: Start: 05-26-2023 End: 05-26-2023 Emergency department patient visit [facility] Work Phone: Start: 05-24-2023 End: 05-24-2023 Emergency department patient visit [facility] Work Phone: Start: 10-26-2022 Non-patient / Non-visit Dr. Ina Giang Work Phone: [facility] Start: 10-26-2022 End: 10-26-[address] Alex Giang Work Phone: [facility] Work Phone: Start: 10-26-2022 End: 10-26-[address] [facility] Start: 10-06-2022 Non-patient / Non-visit Dr. Ina Giang Work Phone: [facility] Start: 10-06-2022 End: 10-06-[address] Alex Giang Work Phone: [facility] Work Phone: Start: 10-06-2022 End: 10-06-[address] [facility] Start: 10-06-2022 Non-patient / Non-visit Dr. Ina Giang Work Phone: [facility] Start: 10-05-2022 End: 10-05-[address] Alex Giang Work Phone: [facility] Work Phone: Start: 10-05-2022 End: 10-05-[address] Alex Giang Work Phone: [facility] Start: 07-02-2022 End: 07-02-[address] Alex Giang Work Phone: [facility] Work Phone: Start: 07-02-2022 End: 07-02-[address] Alex Giang Work Phone: [facility] Start: 06-30-2022 End: 06-30-[address] Alex Giang Work Phone: [facility] Work Phone: Start: 06-30-2022 End: 06-30-[address] Alex Giang Work Phone: [facility] Start: 06-23-2022 End: 06-23-[address] Alex Giang Work Phone: [facility] Start: 04-01-2022 End: 04-01-[address] [facility] Start: 02-18-2022 End: 02-18-[address] [facility] [place] [facility] Start: 11-09-2021 End: 11-09-[address] [facility] Start: 11-02-[address] [facility] [place] Procedures Date Procedure Procedure Detail Performing Clinician Start: 06-13-[address] Alex appiah MD Work Phone: Start: 06-13-[address] Alex Giang MD Work Phone: Start: 06-10-2025 Screening mammography Sweta Giang MD Work Phone: Start: 02-27-2025 Vitamin D, 25-hydrox y measurement Dr. Alex Giang MD Work Phone: Comment on above: Vitamin D StatusDefi ciency: <20 ng/mL (50nmol/L)Insufficiency: 20-30 ng/mL (50-75 nmol/L)Sufficiency: 30-100 ng/mL (75-250 nmol/L)Toxicity: >100 ng/mL (>250 nmol/L) Start: 12-24-[address] Alex [...] Activity Detail Author Start: 01-21-[address] [facility] Start: 01-14-[address] [facility] Start: 01-07-[address] [facility] Start: 01-04-2024 Patient discharge [facility] Start: 01-02-[address] [facility] Start: 12-31-[address] [facility] Start: 12-30-2023 Referral to service [facility] Start: 12-26-[address] [facility] Start: 12-25-2023 Recommendation to co ntinue with treatment [facility] Start: 12-25-[address] [facility] Start: 12-24-[address] [facility] Start: 12-24-[address] plan [facility] Start: 12-24-[address] [facility] Start: 12-24-2023 Application of device [facility] Start: 12-23-[address] [facility] Start: 12-23-2023 Verification routine Wo [facility] Start: 12-23-2023 Admission procedure [facility] Start: 12-23-[address] output [facility] Start: 12-23-2023 Patient referral to dietitian [facility] Start: 12-23-2023 Referral to occupati onal therapist [facility] Start: 12-23-2023 Referral to service [facility] Start: 12-23-[address] [facility] Start: 12-23-2023 End: 12-23-2023 [facility] Start: 12-23-2023 Patient discharge [facility] Start: 12-21-2023 Following clinical p athway protocol [facility] Start: 12-21-2023 Application of inter mittent pneumatic compression device [facility] Start: 12-21-2023 Provision of overbed trapeze [facility] Start: 12-21-[address] [facility] Start: 12-21-2023 Application of device [facility] Start: 12-21-2023 Application of elast ic bandage [facility] Start: 12-21-2023 Assessment of risk o f venous thromboembolism [facility] Start: 12-21-[address] [facility] Start: 12-21-[address] [facility] Start: 12-21-2023 Following clinical p athway protocol [facility] Start: 12-21-2023 Introduction of urin bety catheter [facility] Start: 12-21-[address] output [facility] Start: 12-21-[address] [facility] Start: 12-21-2023 Patient education [facility] Start: 12-21-[address] [facility] Start: 12-21-2023 Provision of activit y privileges [facility] Start: 12-21-2023 Recommendation to co jose alberto with treatment [facility] Start: 12-21-2023 Referral to occupati onal therapist [facility] Start: 12-21-2023 Referral to service [facility] Start: 12-21-[address] [facility] Start: 12-21-20[address]ound [address] [facility] Start: 12-21-[address] [facility] Start: 12-21-[address] [facility] Start: 12-21-2023 Admission procedure [facility] Start: 05-26-[address] [facility] Start: 05-24-2023 Simple repair f/e/e/ n/l/m 2.6cm-5.0 cm RPR F/E/E/N/L/M 2.6-5.[address] [facility] Anion gap measurement [facility] Anion gap measurement [facility] Anion gap measurement [facility] Anion gap measurement [facility] BUN/Creatinine ratio [facility] BUN/Creatinine ratio [facility] BUN/Creatinine ratio [facility] BUN/Creatinine ratio [facility] Calcium [Mass/volume ] in Serum or Plasma [facility] Calcium [Mass/volume ] in Serum or Plasma [facility] Calcium [Mass/volume ] in Serum or Plasma [facility] Calcium [Mass/volume ] in Serum or Plasma [facility] Carbon dioxide, tota l [Moles/volume] in Serum or Plasma [facility] Carbon dioxide, tota l [Moles/volume] in Serum or Plasma [facility] Carbon dioxide, tota l [Moles/volume] in Serum or Plasma [facility] Carbon dioxide, tota l [Moles/volume] in Serum or Plasma [facility] Chloride [Moles/volu me] in Serum or Plasma [facility] Chloride [Moles/volu me] in Serum or Plasma [facility] Chloride [Moles/volu me] in Serum or Plasma [facility] Chloride [Moles/volu me] in Serum or Plasma [facility] Creatinine [Moles/vo lume] in Serum or Plasma [facility] Creatinine [Moles/vo lume] in Serum or Plasma [facility] Creatinine [Moles/vo lume] in Serum or Plasma [facility] Creatinine [Moles/vo lume] in Serum or Plasma [facility] Erythrocyte mean cor puscular volume determination [facility] Erythrocyte mean cor puscular volume determination [facility] Erythrocyte mean cor puscular volume determination [facility] Erythrocyte mean cor puscular volume determination [facility] Glucose [Mass/volume ] in Serum or Plasma [facility] Glucose [Mass/volume ] in Serum or Plasma [facility] Glucose [Mass/volume ] in Serum or Plasma [facility] Glucose [Mass/volume ] in Serum or Plasma [facility] Hematocrit [Volume F raction] of Blood [facility] Hematocrit [Volume F raction] of Blood [facility] Hematocrit [Volume F raction] of Blood [facility] Hematocrit [Volume F raction] of Blood [facility] Hemoglobin [Mass/vol ume] in Blood [facility] Hemoglobin [Mass/vol ume] in Blood [facility] Hemoglobin [Mass/vol ume] in Blood [facility] Hemoglobin [Mass/vol ume] in Blood [facility] Leukocytes [#/volume ] in Blood [facility] Leukocytes [#/volume ] in Blood [facility] Leukocytes [#/volume ] in Blood [facility] Leukocytes [#/volume ] in Blood [facility] Mean corpuscular hem oglobin concentration determination [facility] Mean corpuscular hem oglobin concentration determination [facility] Mean corpuscular hem oglobin concentration determination [facility] Mean corpuscular hem oglobin concentration determination [facility] Mean corpuscular hem oglobin determination [facility] Mean corpuscular hem oglobin determination [facility] Mean corpuscular hem oglobin determination [facility] Mean corpuscular hem oglobin determination [facility] Measurement of renal function [facility] Measurement of renal function [facility] Measurement of renal function [facility] Measurement of renal function [facility] Neutrophil count [facility] Neutrophil count [facility] Neutrophil count [facility] Neutrophil count [facility] Neutrophil percent differential count [facility] Neutrophil percent differential count [facility] Neutrophil percent differential count [facility] Neutrophil percent differential count [facility] Patient Education [facility] Work Phone: Patient referral [facility] Work Phone: Platelets [#/volume] in Blood [facility] Platelets [#/volume] in Blood [facility] Platelets [#/volume] in Blood [facility] Platelets [#/volume] in Blood [facility] Potassium [Moles/vol ume] in Serum or Plasma [facility] Potassium [Moles/vol ume] in Serum or Plasma [facility] Potassium [Moles/vol ume] in Serum or Plasma [facility] Potassium [Moles/vol ume] in Serum or Plasma [facility] Red blood cell count [facility] Red blood cell count [facility] Red blood cell count [facility] Red blood cell count [facility] Red cell distributio n width determination [facility] Red cell distributio n width determination [facility] Red cell distributio n width determination [facility] Red cell distributio n width determination [facility] Sodium [Moles/volume ] in Serum or Plasma [facility] Sodium [Moles/volume ] in Serum or Plasma [facility] Sodium [Moles/volume ] in Serum or Plasma [facility] Sodium [Moles/volume ] in Serum or Plasma [facility] Urea nitrogen [Mass/ volume] in Serum or Plasma [facility] Urea nitrogen [Mass/ volume] in Serum or Plasma [facility] Urea nitrogen [Mass/ volume] in Serum or Plasma [facility] Urea nitrogen [Mass/ volume] in Serum or Plasma [facility] Immunizations Immunization Date Immunization Notes Care Provider [facility] 08-12-2023 influenza virus vacc ine, unspecified formulation DR JOSE RAMON ZULUAGA MD [facility] 08-12-2023 influenza, injectabl e, quadrivalent, preservative free Dr. Alex Giang Work Phone: [facility] 08-12-2023 pneumococcal 20-gabby nt conjugate vaccine DR JOSE RAMON ZULUAGA MD [facility] 08-12-2023 Pneumococcal Vaccine PCV20 (Prevnar 20) Dr. Alex Giang Work Phone: [facility] 05-24-2023 tetanus toxoid, redu annabelle diphtheria toxoid, and acellular pertussis vaccine, adsorbed [facility] 09-03-2022 influenza virus vacc ine, unspecified formulation DR JOSE RAMON ZULUAGA MD [facility] 08-31-2022 SARS-CoV-2 (CV19)mRNA-[address] JOSE RAMON ZULUAGA MD [facility] Comment on above: Result Comment: 2022: [id number] 03-02-2022 SARS-CoV-2 (COVID-19 ) mRNA-[address] JOSE RAMON ZULUAGA MD [facility] 09-11-2021 SARS-CoV-2 (COVID-19 ) mRNA-[address] JOSE RAMON ZULUAGA MD [facility] 09-04-2021 influenza virus vacc ine, unspecified formulation DR JOSE RAMON ZULUAGA MD [facility] 12-25-2020 SARS-CoV-2 (COVID-19 ) mRNA-[address] JOSE RAMON ZULUAGA MD [facility] 11-27-2020 Covid (Moderna) [facility] Comment on above: Result Comment: 2022: [id number] 08-01-2020 influenza virus vacc ine, unspecified formulation DR JOSE RAMON ZULUAGA MD [facility] 09-06-2018 influenza virus vacc ine, unspecified formulation DR JOSE RAMON ZULUAGA MD [facility] 06-10-2016 pneumococcal polysaccharide vaccine, [address] JOSE RAMON ZULUAGA MD [facility] 03-28-2015 pneumococcal conjuga te vaccine, [address] JOSE RAMON ZULUAGA MD [facility] 03-28-2015 tetanus toxoid, redu annabelle diphtheria toxoid, and acellular pertussis vaccine, adsorbed DR JOSE RAMON ZULUAGA MD [facility] 07-24-2012 influenza virus vacc ine, unspecified formulation DR JOSE RAMON ZULUAGA MD [facility] 05-13-2000 diphtheria and tetan us toxoids, adsorbed for pediatric use DR JOSE RAMON ZULUAGA MD [facility] Payers Date Payer Category Payer Medicare [id number] 2024 Self-pay [id number] 2012 Private Health Insurance [facility] [id number] 1940 Unknown [id number] 2.16.8 [id number] 1940 Unknown [id number] 2.16.8 [id number] 1940 Unknown [id number] 2.16.8 [id number] 1940 Unknown [id number] 2.16.8 [id number] 1940 Unknown [id number] 2.16.8 [id number] 1940 Unknown [id number] 2.16.8 [id number] Medicare [id number] Unknown [id number] 2.16.8 [id number] Unknown [id number] 2.16.8 [id number] Unknown [id number] 2.16.8 [id number] Unknown [id number] 2.16.8 [id number] Unknown [id number] 2.16.8 [id number] Unknown [id number] 2.16.8 [id number] Unknown [id number] 2.16.8 [id number] Unknown [id number] 2.16.8 [id number] Unknown [id number] 2.16.8 [id number] Social History Date Type Detail Facility Start: 04-29-2020 End: 12-23-2023 Tobacco smoking status [facility] Unknown if ever smoked [facility] Start: 1940 Sex Assigned At Female [facility] Start: 08-26-2023 Tobacco smoking status Never smoked tobacco (finding) [facility] Start: 08-10-2024 Tobacco smoking status DCIS Ex-smoker (finding) [facility] Start: 1940 Sex assigned at Not on file [facility] Gender identity Not on file [facility] NEGATED: Highlighted row [facility] Medical Equipment Procedure Code Equipment Code Equipment Origin al Text Equipment Identifier Dates ([id number]) Metal-backed pat mela prosthesis [id number] FDA Start: 12-21-2023 ([id number]) Coated knee femu r prosthesis ()[id number] FDA Start: 12-21-2023 ([id number]) Coated knee tibi a prosthesis [id number] FDA Start: 12-21-2023 ([id number]) Tibial insert [id number] FDA Start: 12-21-2023 Goals Date Patient Goal Desired Activity /State Functional Status Date Assessment Result Facility 01-04-2024 Functional status Chair [facility] Work Phone: 01-03-2024 Functional status Tolerates Activity Fair [facility] Work Phone: 12-28-2023 Functional status Ambulates [facility] Work Phone: 12-27-2023 Functional status Tolerates Activity Well [facility] Work Phone: 12-23-2023 Functional status Ambulates [facility] Work Phone: 09-21-2023 Functional Status Mod I [facility] 09-21-2023 Functional Status 2 [facility] 09-21-2023 Functional Status Identified as high risk, Fall ID band on, Room located near nursing station, Bed alert on, Door open, Non-Slip footwear [facility] 09-21-2023 Functional Status [facility] 09-21-2023 Functional Status bilateral knee high applied/on [facility] 09-20-2023 [facility]23 Functional Status [facility] 09-20-2023 Functional [facility] Functional Status Single level home [facility] 09-20-2023 Functional Status [facility] 09-20-2023 Functional Status Maintained, More than 8 hours [facility] 08-26-2023 Functional Status Sensory Deficits None A [facility] Mental Status Date Assessment Result Facility 01-04-2024 Cognitive function Voice/Name [facility] Work Phone: 01-03-2024 Cognitive function Patient Saurabh gomez Person;Place;Time [facility] Work Phone: 12-30-2023 [facility] 12-27-2023 Cognitive function Voice/Name [facility] Work Phone: 12-23-2023 [facility] 12-23-2023 Cognitive function Arousable To Voice/Nam e [facility] Work Phone: 09-21-2023 Mental Status Orientation Asse ssment Oriented x 4 [facility] 09-21-2023 Mental Status Oriented x 4 [facility] 09-20-2023 Mental Status [facility] 09-20-2023 Mental Status [facility] 05-26-2023 Cognitive function Level Of Cons ciousness Awake;Alert;Appropriate;Follow s Commands [facility] Work Phone: Clinical Notes 04-30-2021 to 06-13-2025 Note Date & Type Note Facility 06-13-2025 Radiology Diagnostic study note [facility] Imaging Services [address] [place], [place] [address] Breast Limited Unilateral MR#: [id number] Acct: [id number] Name: FRED MON Rep #: [id number] : 1940 F 84 From: Ric Ryder MD PCP: Dr. Alex Giang MD Status: RE G CLI Study:Breast Limited Unilateral Date of Exam: 06/13/25 Exam# [id number] Ordering Dr: Alex Giang MD PROCEDURE: BREAST LIMITED UNILATERAL 06/13/2025 REASON FOR EXAM: F, Age 84 y/o , ABN MAMM Abnormal diagnostic mammogram. COMPARISON: Prior mammogram done earlier in the day.. TECHNIQUE: BREAST LIMITED UNILATERAL. Imaging of the lateral upper aspect of the right breast was examined with ultrasound. FINDINGS: There is a 3 mm x 3 mm x 2 mm cyst at the 10 o'clock position of the breast at 4cm from the nipple. There is a 3 mm x 3 mm x 3 mm cyst at the 10 o'clock position of the breast at 2 cm from the nipple. Thereis also evidence of a 4 mm x 4 mm x 5 mm cyst at the 11 o'clock position of the breast at 3 cm from the nipple. US/Breast Limited Unilateral IMPRESSION: The mammographic abnormality corresponds to 3, adjacent subcentimeter cysts as described. BI-RADS 2: BENIGN RECOMMENDATION: Routine annual follow-up in 1 Year Reading Location: [facility] CC: Dr. Alex Giang MD ~ Extrusion Die Coordinator: Signed [facility] 01-02-2024 Discharge summary Note Date/Time January 02, 2024 7:58am [facility] Medical Records Department [address] [place] [address] Discharge Summary 01/02/24 0756 MR#: [id number] Acct: [id number] Name: FRED MON Rep #:[id number] : 1940 83 From: Nima Harper MD PCP: Dr. Alex Giang MD Status:[facility] Location[facility] Date of Admission: 12/23/23 Primary Care [...] to discharge home alone. Discharge home 01/04/2024, [facility] PT/OT. Physical Exam Const alert General Appearance: [...] Uncontrolled pain Additional Instructions: Discharge home 01/04/2024, [facility] PT/OT. Please Follow Up With: Michael Joel PA-C When: As scheduled. Meaningful Use Info Meaningful Use Diagnoses (Choose all that apply): None applicable Discharge Plan Admission Admit Date/Time: 12/23/23 12:41 Primary Reason for Your Visit: Debility. Attending Provider: Nima Harper Chi Primary Care Provider: Alex Giang Instructions Additional Instructions / Restrictions: Discharge home 01/04/2024, [facility] PT/OT. Discharge Orders/Prescriptions Prescriptions: New acetaminophen 500 [...] ulysses as pt needs seen prior to C SOC. ) Disposition Disposition (needs filled in before D/C Order can be placed): Home Health Service 01/02/24 0801 <Electronically signed by Nima Harper MD> Cosigner Signature (if applicable): CC: Dr. Alex Giang MD; Dr. Nima Harper MD~ Signed [facility] Work Phone: 1(374) 510-778702-19-2024 Progress note Author [facility] December 26, 2023 8:49am Note Date/Time December 26, 2023 8:09am [facility] Medical Records Department [address] [place] [address] Progress Note - Pharmacy 12/26/23 08 MR#: [id number] Acct: [id number] Name: FRED MON Rep #:[id number] : 1940 83 From: Tiffanie Matias PCP: Dr. Alex Giang MD Status:AD M IN Location: [place] [address] Documented by User: Tiffanie Matias 12/26/23 08:18 [...] 10 Mg Tablet PO 10 mg QHS [facility] Administration Cephalexin 500 mg 12/23/23 14:15 12/25/23 21:39 Cephalexin 500 Mg Capsule PO 12/30/23 22:01 500 mg Q12 [facility] Administration Cholecalciferol 50 mcg 12/24/23 10:00 12/25/23 08:35 Cholecalciferol (Vit D3) 25 Mcg Tablet (1,000 Units) PO 50 mcg DAILY [facility] Administration Doxycycline Monohydrate 100 mg 12/23/23 14:10 12/25/23 21:39 Doxycycline 100 Mg Capsule PO 12/30/23 14:11 100 mg BID [facility] Administration Enteral Nutritional Formula 237 ml 12/23/23 17:45 12/25/23 17:57 Ensure Surgery 237 Ml Liquid PO Not Given TIDCM [facility] Famotidine 20 mg 12/24/23 10:00 12/25/23 08:35 Famotidine 20 Mg Tablet PO 20 mg DAILY [facility] Administration Lisinopril 10 mg 12/24/23 10:00 12/25/23 08:38 Lisinopril 10 Mg Tablet PO 10 mg DAILY [facility] Administration Protocol Melatonin 3 mg 12/23/23 22:00 12/25/23 21:39 Melatonin 3 Mg Tablet PO 3 mg QHS [facility] Administration Meloxicam 7.5 mg 12/23/23 17:00 12/25/23 17:56 Meloxicam 7.5 Mg Tablet PO 7.5 mg BIDCM [facility] Administration Senna/Docusate Sodium 2 tablet 12/23/23 22:00 12/25/23 21:39 Senna/Docusate Sodium 1 Tablet PO 2 tablet BID [facility] Administration Tramadol HCl 50 mg 12/25/23 21:25 [...] User: Dr. Nima Harper MD 12/26/23 08:49 TCU RX Drug Regimen Review Provider Comments Provider responsibility Provider Comments to Recommendations by Pharmacy: Agree 12/26/23 0818 <Electronically signed by Tiffanie Matias> Tiffanie Matias Cosigner Signature (if applicable): 12/26/23 0849 <Electronically signed by Nima Harper MD> CC: ~ Signed [facility] Work Phone: 1(232) 937-597702-16-2024 History and physical note Author Nima Harper [facility] December 23, 2023 2:29pm Note Date/Time December 23, 2023 2:12pm [facility] Medical Records Department [address] [place] [address] History & Physical Exam 12/23/23 1410 MR#: [id number] Acct: [id number] Name: FRED MON Rep #:[id number] : 1940 83 From: Nima Harper MD PCP: Dr. Alex Giang MD Status:AD M IN Location: [facility] HPI - General General Date of Admission: 12/23/23 Date of Service: 12/23/23 Chief Complaint: Here for rehabilitation. HPI Narrative FRED MON, is a 83 Female who presents with followin12/21/2023 Admit to [facility]. 12/21/2023 Dr. Zuluaga performed left TKA. [...] aches. Mentation baseline. Discussed with daughter Camille. [facility] Medical History (Updated 12/23/23 @ 14:19 by [...] Giang MD; Dr. Nima Harper MD~ Signed [facility] Work Phone: 1(936) 327-577702-15-2024 Progress note Author Michael Joel [facility] December 22, 2023 10:49am Note Date/Time December 22, 2023 10:49am [facility] Medical Records Department [address] [place] [address] Progress Note - Orthopedic 12/22/23 1044 MR#: [id number] Acct: [id number] Name: FRED MON Rep #:[id number] : 1940 83 From: Michael CANTOR PA-C PCP: Dr. Alex Giang MD Status:AD M IN Location: [place]-4 Subjective Subjective The patient was sitting in [...] with above medications. I have reviewed the [place] Automated Rx Reporting System (OARRS) report for [...] Cosigner Signature (if applicable): CC: ~ Signed [facility] Work Phone: 1(108) 807-131402-15-2024 Progress note Author Stefano Avina [facility] December 22, 2023 10:10am Note Date/Time December 22, 2023 10:10am [facility] Medical Records Department [address] [place] [address] Progress Note - Hospitalist 12/22/23 1008 MR#: [id number] Acct: [id number] Name: FRED MON Rep #:[id number] : 1940 83 From: Stefano mueller MD PCP: Dr. Alex Giang MD Status:AD M IN Location: [place] [address]-1 Subjective Subjective No issues, pain is controlled. [...] follow peripherally Charges/Coding Visit Charges Inpatient E&M: 18691 Subs Hosp L2 12/22/23 1010 <Electronically signed by Stefano Avina MD> Cosigner Signature (if applicable): CC: ~ Signed [facility] Work Phone: 1(630) 960-527702-14-2024 Procedure [facility] 12-21-2023 History and physical note Author Jose Ramon Zuluaga [facility] December 21, 2023 7:02am Note Date/Time December 15, 2023 2 :48pm [facility] Medical Records Department [address] [place] [address] History & Physical Exam 12/15/23 1447 MR#: [id number] Acct: [id number] Name: FRED MON AMAN Rep #:[id number] : 1940 83 From: Michael CANTOR PA-C PCP: Dr. Alex Giang MD Status:[facility] Location: [place] [address] History and Physical History and Physical? Patient [...] medical history.? [facility].?? REVIEW OF SYSTEMS: Review [...] Arthroscopy - (09/13/2006) LT KNEE, DR. CASTILLO, [facility] Knee Replacement RT - (09/20/2023) ROBOTIC ASSISTED RT TKR AND INJECTION LEFT KNEE DR. ZULUAGA AT [facility] Anesthesia Complications: None Assistive Devices: Glasses, Cane [...] assessment and prediction tool (RAPT) score = 2/12 DVT Prophylaxis:? Aspirin 81 mg twice daily [...] Dr. Jose Ramon Zuluaga MD ~* Signed [facility] Work Phone: 1(222) 196-140511-15-2023 Hospital Discharge instructions Patient Education 09/21/2023 13:06:09 Total Knee Replacement, Care After, Zfzp-tq-Qchz Total Knee Replacement, Care After This sheet [...] Follow these instructions at home: Medicines Take hrhz-cxq-sveolvi and prescription medicines only as told by [...] keep your pee (urine) pale yellow. ?Take xbnx-djn-jvstaxk or prescription medicines. ?Eat foods that are [...] cannot use soap and water, use hand trim carpenter. ?Change your bandage as told by your [...] 01/15/2013 Document Revised: 03/03/2020 Document Reviewed: 06/07/2019 [employer] Patient Education 2020 [employer]. 09/21/2023 06:56:19 5 - [facility] Post-op Instruction 06/2017 (94888) [facility] Post-operative Instructions PLEASE FOLLOW [facility] POST-OP INSTRUCTIONS GIVEN WATCH FOR SIGNS OF INFECTION: call the office ([phone]) if experencing any of the following: (Usually [...] on your follow up instructions. Form: 338A (16904) R: 03/13 Follow Up Care 07/26/2023 08:02:18 With:[facility] Address: [address] [place] [address] [phone] When:09/23/2023 13:00:00 Comments:This is your first physical therapy appointment. Follow-up as scheduled. With:MICHAEL JOEL PA-C, Orthopedic Address: [facility] [address] [place] [address]- When:10/03/2023 13:30:00 Comments:This is your post-op appointment. Follow-up as scheduled. [facility] 11-15-2023 Note Discharge Instructions Thank you for allowing [facility] to assist you with your healthcare needs. [...] your post-op appointment. Follow-up as scheduled. Where: [facility] [address] [place] [address] [place] [address]- Follow Up with [facility] When 09/23/2023 01:00 PM EST Why: This is your first physical therapy appointment. Follow-up as scheduled. Where: [address] [place] [address] [place] [address]- [phone] The Following Treatments Have Been Ordered for [...] weeks postoperatively for DVT prophylaxis. Pickup at [facility] #22504 New docusate-senna (Senokot S 50 mg-8.6 mg oral tablet) 2 tab(s) by mouth Two (2) times a day Duration: 3 Days Take until first bowel movement, then as needed Pickup at [facility] #44411 New famotidine (Pepcid 20 mg oral tablet) 1 tab(s) by mouth Once a day Pickup at [facility] #39627 New oxyCODONE (oxyCODONE 5 mg oral tablet ( IMMEDIATE release )) See instructions Status post total right knee replacement 1-2 tab(s) Oral q4h Pickup at [facility] #19396 Changed acetaminophen (Tylenol) 1,000 Milligram by mouth [...] by mouth Once a day Pharmacy Information [facility] #[id number]: [address] [place], [place] [phone] Please take this list to your next [...] may report side effects to FDA at 0-902-NYU-4864. What other drugs will affect docusate and senna? Other drugs may affect docusate and senna, including prescription and utdc-scu-avlswxo medicines, vitamins, and herbal products. Tell your [...] to ensure that the information provided by [employer]. ('[employer]') is accurate, up-to-date, and complete, but no guarantee is made to that effect. Drug information contained herein may be time sensitive. [employer] information has been compiled for use by healthcare practitioners and consumers in the [place] and therefore [employer] does not warrant that uses outside of the [place] are appropriate, unless specifically indicated otherwise. [employer] drug information does not endorse drugs, diagnose patients or recommend therapy. [employer] drug information isan informational resource designed to [...] effective or appropriate for any given patient. [employer] does not assume any responsibility for any aspect of healthcare administered with the aid of information [employer] provides. The information contained herein is not intended to cover all possible uses, directions, precautions, warnings, drug interactions, allergic reactions, or adverse effects. If you have questions about the drugs you are taking, check with your doctor, nurse or pharmacist. Copyright 0363-4840 [facility] [employer] Version: 5.01. Revision Date: 06/13/2023. oxycodone (ox [...] The extended-release form of oxycodone is for lplbjj-klq-dokyo treatment of pain and should not be [...] against the law. Stop taking all other wsuvrw-jyo-yltun opioid pain medicines when you start taking [...] may report side effects to FDA at 0-663-PSZ-8691. What other drugs will affect oxycodone? You [...] drugs may affect oxycodone. This includes prescription yehmnkr-qbt-kaifyvp medicines, vitamins, and herbal products. Not all [...] to ensure that the information provided by [employer]') is accurate, up-to-date, and complete, but no guarantee is made to that effect. Drug information contained herein may be time sensitive. [employer] information has been compiled for use by healthcare practitioners and consumers in the [place] and therefore [employer] does not warrant that uses outside of the [place] are appropriate, unless specifically indicated otherwise. [employer] drug information does not endorse drugs, diagnose patients or recommend therapy. [employer] drug information isan informational resource designed to [...] effective or appropriate for any given patient. [employer] does not assume any responsibility for any aspect of healthcare administered with the aid of information [employer] provides. The information contained herein is not intended to cover all possible uses, directions, precautions, warnings, drug interactions, allergic reactions, or adverse effects. If you have questions about the drugs you are taking, check with your doctor, nurse or pharmacist. Copyright 4420-9300 [employer]. Version: 16.. Revision Date: 06/10/2023. acetaminophen (oral) [...] may report side effects to FDA at 8-056-DGF-5373. What other drugs will affect acetaminophen? Other drugs may affect acetaminophen, including prescription and dkfq-kwi-awwsxvd medicines, vitamins, and herbal products. Tell your [...] to ensure that the information provided by [employer] ('[employer]') is accurate, up-to-date, and complete, but no guarantee is made to that effect. Drug information contained herein may be time sensitive. [employer] information has been compiled for use by healthcare practitioners and consumers in the [place] and therefore [employer] does not warrant that uses outside of the [place] are appropriate, unless specifically indicated otherwise. [employer]'s drug information does not endorse drugs, diagnose patients or recommend therapy. [employer] drug information isan informational resource designed to [...] effective or appropriate for any given patient. [facility] does not assume any responsibility for any aspect of healthcare administered with the aid of information [facility] provides. The information contained herein is not intended to cover all possible uses, directions, precautions, warnings, drug interactions, allergic reactions, or adverse effects. If you have questions about the drugs you are taking, check with your doctor, nurse or pharmacist. Copyright 3649-0995 [facility] [employer]. Version: .. Revision Date: 06/06/2023. aspirin (oral) ( pir in) Aspi-Cor, Lore Plus, Durlaza, Ecotrin, Miniprin, Vazalore What is the most important information I should know about aspirin? Aspirin can cause Kimberly's syndrome, a serious and sometimes fatal condition in children. What is aspirin? Aspirin is a salicylate (rd-CUY-wf-ate) that is used to treat pain, and [...] may report side effects to FDA at 6-397-AZY-1404. What other drugs will affect aspirin? Ask [...] drugs may affect aspirin, including prescription and lngf-jni-gpoojxb medicines, vitamins, and herbal products. Not all [...] to ensure that the information provided by [employer] ('[employer]') is accurate, up-to-date, and complete, but no guarantee is made to that effect. Drug information contained herein may be time sensitive. [employer] information has been compiled for use by healthcare practitioners and consumers in the [place] and therefore [employer] does not warrant that uses outside of the [place] are appropriate, unless specifically indicated otherwise. [employer] drug information does not endorse drugs, diagnose patients or recommend therapy. [employer] drug information isan informational resource designed to [...] effective or appropriate for any given patient. [employer] does not assume any responsibility for any aspect of healthcare administered with the aid of information [employer] provides. The information contained herein is not intended to cover all possible uses, directions, precautions, warnings, drug interactions, allergic reactions, or adverse effects. If you have questions about the drugs you are taking, check with your doctor, nurse or pharmacist. Copyright 2944-5399 [employer]. Version: 18.01. Revision Date: 05/30/2023. famotidine (oral/injection) (fam [place] [...] may report side effects to FDA at 2-847-LSC-8348. What other drugs will affect famotidine? Famotidine oral can make it harder for your body to absorb other medicines you take by mouth. Tell your doctor if you are taking: cefditoren; dasatinib; delavirdine; fosamprenavir; or tizanidine (if you are taking famotidine liquid). This list is not complete. Other drugs may affect famotidine, including prescription and jrin-bgy-tlgwzgs medicines, vitamins, and herbal products. Not all [...] to ensure that the information provided by [employer]. ('[employer]') is accurate, up-to-date, and complete, but no guarantee is made to that effect. Drug information contained herein may be time sensitive. [employer] information has been compiled for use by healthcare practitioners and consumers in the [place] and therefore [employer] does not warrant that uses outside of the [place] are appropriate, unless specifically indicated otherwise. [employer] drug information does not endorse drugs, diagnose patients or recommend therapy. [employer] drug information isan informational resource designed to [...] effective or appropriate for any given patient. [employer] does not assume any responsibility for any aspect of healthcare administered with the aid of information [employer] provides. The information contained herein is not intended to cover all possible uses, directions, precautions, warnings, drug interactions, allergic reactions, or adverse effects. If you have questions about the drugs you are taking, check with your doctor, nurse or pharmacist. Copyright 2902-7445 [employer]. Version: . Revision Date: 05/30/2023. Education Materials Total Knee [...] Follow these instructions at home: Medicines Take dhen-eva-qdvlsjl and prescription medicines only as told by [...] your pee (urine) pale yellow. ? Take jnzr-yse-phvoydm or prescription medicines. ? Eat foods that [...] cannot use soap and water, use hand trim carpenter. ? Change your bandage as told by your doctor. ? Leave stitches (sutures), skin glue, or skin tape (adhesive) strips in bruna (more content not included)... [facility]11-15-2023 Note Date of Service September 21, 2023 [...] does have outpatient physical therapy established at [facility]. She will follow-up per postoperative instructions. Patient would like her prescriptions E scribed to [facility] in [facility]. Upon discharge she will contact her office with any concerns or questions. I have reviewed the [place] Automated Rx Reporting System (OARRS) report for [...] MICHAEL JOEL PA-C on 09/21/2023 06:56 AM [facility]11-15-2023 Note Date of Service September 21, 2023 [...] does have outpatient physical therapy established at [facility] [facility]. She will follow-up per postoperative instructions. [facility]. Upon discharge she will contact her office with any concerns or questions. I have reviewed the [place] Automated Rx Reporting System (OARRS) report for [...] MICHAEL JOEL PA-C on 09/21/2023 06:56 AM [facility]11-14-2023 Note ORIGINAL EXAMINATION: TWO XRAY VIEWS OF [...] Sign Date: 09/20/2023 1:06:13 PM Ordering Provider: [facility]11-14-2023 Anesthesiology Consult note Patient: FRED MON [...] or recorded. Procedure history: Arthroscopy of knee ([id number]). Comments: 09/20/2023 8:59 Montse Valente RN LEFT [...] Height 165.1 cm Admission Weight 87.9 kg Esmond Body Weight 57.00 kg Admission Body Mass [...] We May Share PHI CAMILLE DEL VALLE [phone] Designated Person #1 Relationship Daughter Designated Person #2 We May Share PHI RIC TRUJILLO [phone] Designated Person #2 Relationship Daughter Privacy Restrictions [...] No Advanced Directives Yes Advance Directive Type [place] Durable Power of Body Shop Floorperson for [place], [place] Declaration (Living Will) Advance Directive Location [...] after midnight, No makeup, No jewelry, Responsible Libertarian, Aware of surgery location, Pre-op education done, 1 bottle CHG wash with instructions given, No ordered medications, Total Joint Replacement/Colorectal Book Given, SSI prevention handout given, Anesthesia block education provided SN - Preprocedure Comments Spoke with patient, Verbalizes/Nonverbally indicates understanding Anesthesia Evaluation Date/Time 08/26/2023 12:43 Anesthesia Evaluation Performed By LAM DAVILA APRN-WRESTLING COACH Anesthesia Evaluation Result Approved Individuals Taught Patient, Daughter Barriers to Learning None evident Teaching Method Explanation Preferred Spoken Language Marshallese Preferred Written Language Marshallese Total Joint Book Given Yes Pre Procedure/Surgery [...] Height 165.1 cm Admission Weight 87.9 kg Esmond Body Weight 57.00 kg Admission Body Mass [...] no difficulties Skin Temperature Warm Skin Description [place], Dry Skin Integrity Intact Neurological Symptoms Patient [...] Upper/Half-Length side-rails up . Assessment and Plan [place] Society of Anesthesiologists (ASA) physical status classification: Class III. Anesthetic Preoperative Plan Anesthetic technique: Spinal. Regional: Spinal. Postoperative pain management: adductor canal block. Risks discussed: nausea, vomiting, headache, hypotension, allergic reaction, serious complications. Informed consent: signed by patient. Digitally Signed by LAM DAVILA on 09/20/2023 10:24 AM [facility]11-07-2023 Discharge summary Author Fredis Quinones [facility] September 13, 2023 5:15pm Note Date/Time September 13, 2023 5 :15pm [facility] Physical Therapy [facility] [address] [place] [address] / REHABILITATION SERVICES DISCHARGE SUMMARY MR#: [id number] Acct: [id number] Name: FRED MON Rep #: [id number] : 1940 82 From: Fredis Quinones DPT, OCS, CSCS Referring Dr.: Dr. Alex Giang MD Status: REG R Insurance[facility] Patient Information Patient Information: [...] appropriate by the physician. Thank you! Fredis Quinones, DPT, OCS, CSCS Balance/Gait/Functional tests Balance/Special Test Scores Functional Gait Assessment Score: 25 % Disability: 16.6700 Dizziness Score: 12 <Electronically signed by Fredis Quinones DPT, OCS, CSCS> 09/13/23 4523 CC: Dr. Alex Giang MD ~ EBG Signed [facility] Work Phone: 1(437) 938-970410-20-2023 Note ORIGINAL EXAMINATION: CT of the right [...] Date: 08/26/2023 4:18:41 PM Ordering Provider: [facility]06-24-2021 Note HNO ID: [id number] Author: Jin Hinds MD Service: ? Author Type: Physician Type: Progress Notes Filed: 05/05/2021 8:44 PM Note Text: CONSULT ORTHOPAEDIC: KNEE PRIMARY CARE PHYSICIAN: No primary care provider on file. REFERRING PROVIDER: SELF ASSESSMENT AND PLAN Impression: Left Knee Severe Degenerative Osteoarthritis, Primary After discussion with Fred Mon, continued non-operative management of audio production instructor bracing and Voltaren gel was chosen. The [...] and healthy. The patient has been ordered: Culture Room Worker brace CONSULTS: Patient does not require consults [...] noted to hav (more content not included)... [facility] note Author Tiffanie Matias [facility] December 23, 2023 10:52am Note Date/Time December 23, 2023 10:52am [facility] Medical Records Department [address] [place] [address] Counseling Note - Pharmacy 12/23/23 1052 MR#: [id number] Acct: [id number] Name: FRED MON Rep #:[id number] : 1940 83 From: Tiffanie Matias PCP: Dr. Alex Giang MD Status:AD M IN Location: [place] GM224-3 Pharmacy [place] Med Reconciliation Pharmacy Service has performed discharge [...] Signature (if applicable): Date CC: ~ Signed [facility] Work Phone: Discharge summary Author Jose Ramon Zuluaga [facility] December 23, 2023 10:40am Note Date/Time December 23, 2023 10:34am [facility] Medical Records Department [address] [place] [address] Discharge Summary 12/23/23 1030 MR#: [id number] Acct: [id number] Name: FRED MON Rep #:[id number] : 1940 83 From: Jose Ramon Sol PCP: Dr. Alex Giang MD Status:AD M IN [id number] Providers Date of Admission: 12/21/23 Primary Care [...] in before D/C Order can be placed): [facility] 12/23/23 1040 <Electronically signed by Jose Ramon Zuluaga MD> Cosigner Signature (if applicable): CC: Dr. Alex Giang MD; Dr. Jose Ramon Zuluaga MD~ Signed [facility] Work Phone: Discharge summary Author Jose Ramon Zuluaga [facility] December 23, 2023 10:47am Note Date/Time December 23, 2023 10:47am [facility] Medical Records Department [address] [place] [id number] Transfer to [facility] MR#: [id number] Acct: [id number] Name: FRED MON Rep #:[id number] : 1940 83 From: Jose Ramon Sol PCP: Dr. Alex Giang MD Status:AD M IN Certification of patient admission REQUIRED AT TIME OF ADMISSION. I CERTIFY THAT POST-HOSPITAL F SERVICES ARE REQUIRED TO BE GIVEN ON AN IN-PATIENT BASIS BECAUSE OF THE ABOVE NAMED PATIENT'S NEED FOR SENIOR LIVING CARE ON A CONTINUING BASIS FOR THE CONDITION(S) FOR WHICH HE/SHE WAS RECEIVING IN-PATIENT HOSPITAL SERVICES PRIOR TO HIS/HER TRANSFER TO THE [facility]. 12/23/23 1047<Electronically signed by Jose Ramon Zuluaga [...] home alone. Patient has excepting facility at [facility]. Pre-CERT is been obtained. Plan is for discharge today. We did go over discharge instructions including DVT prophylaxis medications, stool softeners and pain management. I have reviewed the [place] Automated Rx Reporting System (OARRS) report for [...] in before D/C Order can be placed): [facility] 12/23/23 1047 <Electronically signed by Jose Ramon Zuluaga MD> Cosigner Signature (if applicable): CC: Dr. Alex Giang MD; Dr. Stefano Avina MD ~ [facility] Work Phone: Evaluation + Plan note Future Appointments [facility] Evaluation noteNo assessment information available [facility] Work Phone: Evaluation note* Diagnosis Onset Date Resolution Status Borderline hyperlipidemia ac saxman Osteopenia after menopause a cute Hypertension chronic Encounter for routine gynecological examination noneactive [facility] Work Phone: Evaluation note* Diagnosis Onset Date Resolution Status Status post total left knee replacement acute [facility] Work Phone: Evaluation note* Diagnosis Onset Date Resolution Status Status post total left knee replacement acute Acute encephalopathy acute Carotid artery stenosis acut e Cellulitis of left knee acut e Debility acute Edema of left lower extremity acute Hyperlipidemia acute Osteopenia acute Postoperative anemia acute Status post total left knee replacement acute Hypertension chronic [facility] Work Phone: Evaluation note* Diagnosis Dementia, unspecified dementia severity, unspecified dementia type, unspecified whether behavioral, psychotic, or mood disturbance or anxiety (HCC)- [facility] N[facility] No data available for this section [facility] Hospital Discharge instructions Additional Instructions Take meclizine as needed for dizziness. Follow-up with your doctor to have your blood pressure rechecked or buy a blood pressure cuff and take it once a day at home and write down the readings to take to your primary care's office. If your dizzy symptoms worsen or you have difficulty ambulating come back to the ER.[facility] Work Phone: Hospital Discharge instructions No data available for this section [facility] Progress note No data available for this section [facility] Progress note Author Jose Ramon Zuluaga [facility] December 23, 2023 10:44am Note Date/Time December 23, 2023 10:44am [facility] Medical Records Department [address] [place] [address] Progress Note - Orthopedic 12/23/23 1040 MR#: [id number] Acct: [id number] Name: FRED MON Rep #:[id number] : 1940 83 From: Jose Ramon Sol PCP: Dr. Alex Giang MD Status:AD M IN Location: [facility] [id number] Subjective Subjective Patient doing well. Stable. Daughter [...] home alone. Patient has excepting facility at [facility]. Pre-CERT is been obtained. Plan is for discharge today. We did go over discharge instructions including DVT prophylaxis medications, stool softeners and pain management. I have reviewed the [place] Automated Rx Reporting System (OARRS) report for [...] Cosigner Signature (if applicable): CC: ~ Signed [facility] Work Phone: Reason for referral (narrative)No reason for referral [facility] Work Phone: Summary Purpose Family History [...] Yes April 29, 2020 6:48am Power of [employer] Floorperson Yes April 29 0 6:48am Advance Directive Response Recorded Date/ Time Living Will Yes April 29, 2020 5:48am Power of [employer] Floorperson Yes April 29 0 5:48am Advance Directive Response Recorded Date/ Time Living Will Yes May 24, 2023 9:13pm Power of [employer] Floorperson Yes May 24 9:13pm Name of Medical Power of [employer] Shop Floorperson [facility] [employer] May 24, 2023 9:13pm Advance Directive Response Recorded Date/ Time Name of Medical Power of [employer] Shop Floorperson [employer] May 24, 2023 9:13pm Name of Medical Power of [employer] Shop Floorperson CAMILLE CAUSEY N- DAUGHTER May 26, 2023 2:15pm Living Will Yes May 26, 2023 2:15pm Power of [employer] Floorperson Yes May 26 2:15pm Advance Directive Response Recorded Date/ Time Name of Medical Power of [employer] Shop Floorperson [facility] May 24, 2023 8:13pm Name of Medical Power of [employer] Shop Floorperson CAMILLE CAUSEY N- DAUGHTER May 26, 2023 1:15pm Living Will Yes May 26, 2023 1:15pm Power of [employer] Shop Floorperson Yes May 26 1:15pm Advance Directive Response Recorded Date/ Time Living Will Yes May 26, 2023 1:15pm Power of [employer] Floorperson Yes May 26 1:15pm Advance Directive Response Recorded Date/ Time Living Will Yes November 23 8:50am Power of [employer] Floorperson Yes November 23, 2023 8:50am Advance Directive Response Recorded Date/ Time Name of Medical Power of [employer] Floorperson [facility] December 21, 2023 12:33pm Living Will Yes December 21, 024 12:33pm Power of [employer] Floorperson Yes December 21, 2023 12:33pm Advance Directive Response Recorded Date/ Time Name of Medical Power of [employer] Shop Floorperson CAMILLE GARRIDO December 21, 2023 12:33pm Name of Medical Power of [employer] Floorperson Camille Del Valle, daughter December 26, 2023 4:55pm Living Will Yes December 26 024 4:55pm Power of [employer] Floorperson Yes December 26, 2023 4:55pm Chief Complaint and Reason for Visit Chief Complaint SHLD PN/RX W/ PT Chief Complaint OSTEO Chief Complaint 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 Reason for Visit Borderline hyperlipi demia Osteopenia after menopause Hypertension Encounter for routine gynecological examination Chief Complaint 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 SOB Reason for Visit Borderline hyperlipi [...] Status post total left knee replacement Hypertension Chief Complaint Admit Date SCREENING June 10, 2025 12: 52pm RT BREAST ABN MAMM June 13, 2025 1:1 2pm Additional Source Comments INFORMATION SOURCE (unrecogn ized section and content) DATE CREATED AUTHOR 07/25/2021 [facility] DATE CREATED AUTHOR AUTHOR'S ORGANIZ ATION 12/09/2021 [facility] DATE CREATED AUTHOR AUTHOR'S ORGANIZ ATION 11/03/2023 [facility] ([place]) DATE CREATED AUTHOR AUTHOR'S ORGANIZ ATION 07/06/2025 [facility] Goals (unrecognized section and content) Goals may [...] MD Primary Care Provider Active Rosario Kasper ADMINISTRATIVE LIAISON, ADMINISTRATIVE LIAISON-C Attending Provider, Referring Pro vider Active Team Status: Inactive Member Role Status Dates Dr. Alex Giang MD Primary Care Provider Active Dr. Winter Michel MD Attending Provider, Emergency Provider Active Team Status: Inactive Member Role Status Dates Dr. Alex Giang MD Primary Care Provider Active Dr. Torrey Bailey DO Attending Provider, Emergency Provide r Active Team Status: Inactive Member Role Status Dates Dr. lAex Giang MD Primary Care Pr ovider, Attending [...] Provider, Attending Provid er Active Team Status: Active Member Role/Relationship Status Dates Dr. Alex Giang MD Primary Care Provider Active Team Status: Inactive Member Role/Relationship Status Dates Dr. Alex Giang MD Primary Care Provider Active Start: February 27, 2025 End: February 27, 2025 Dr. Alex Giang MD Attending Provider Active Start: February 27, 2025 End: February 27, 2025 Dr. Alex Giang MD Referring Provider Active Start: February 27, 2025 End: February 27, 2025 Team Status: Inactive Member Role/Relationship Status Dates Dr. Alex Giang MD Primary Care Provider Active Start: June 10, 2025 End: June 10, 2025 Dr. Alex Giang MD Attending Provider Active Start: June 10, 2025 End: June 10, 2025 Dr. Alex Giang MD Referring Provider Active Start: June 10, 2025 End: June 10, 2025 Team Status: Active Member Role/Relationship Status Dates Dr. Alex Giang MD Primary Care Provider Active Start: June 13, 2025 Dr. Alex Giang MD Attending Provider Active Start: June 13, 2025 Dr. Alex Giang MD Referring Provider Active Start: June 13, 2025 Team Status: Inactive Member Role/Relationship Status Dates Dr. Alex Giang MD Primary Care Provider Active Start: June 13, 2025 End: June 13, 2025 Dr. Alex Giang MD Attending Provider Active Start: June 13, 2025 End: June 13, 2025 Dr. Alex Giang MD Referring Provider Active Start: June 13, 2025 End: June 13, 2025 Assembler [employer]cob Pipes Relationship Specialty Start Date End Date Alex Giang MD [address] [address] PCP - General Endocrinology/Metabolism 07/07/23 FOR RECORDS PERTAINING TO PATIENTS WHO ARE [...] BE BASED ON THE PRIMARY CLINICAL RECORDS. [employer] provides no warranty or guarantee of the accuracy or completeness of information in this document.
[2025-07-07 06:39] VITALS: BP 173/74; PULSE 68; RESP 18; TEMP 36.8; O2SAT 100
[2025-07-07 06:48] LABS: Mucous, Urine 0 SEEN /hpf (<or=2+)
[2025-07-07 06:52] LABS: Color, Urine Yellow (Yellow); Glucose, Dipstick Normal (Normal); Ketone-Dipstick Negative (Negative); Leukocyte Esterase-Dipstick 100 /ul (Negative); Nitrite-Dipstick Positive (Negative); Occult Blood-Urine 250 /ul (Negative); Protein-Dipstick 15 mg/dl (Negative); Specific Gravity, Urine 1.015 (1.002-1.030); Urine Bilirubin Dipstick Negative (Negative)
[2025-07-07 07:01] LABS: Red Blood Cells-Urine 0-5 SEEN /hpf (0-5); Squamous Epithelial Cells - UA 0-5 SEEN /hpf (5-10)
[2025-07-07 07:02] VITALS: BP 173/74; PULSE 67; RESP 16; TEMP 36.5; O2SAT 100
--- NOTE | 2025-07-07 14:37 | ED.RN ---
Daughter called and requested that pts RX be switched to [facility] in . Pts pharmacy is closed until Tuesday.
== END 2025-07-07 07:13 | disposition home or self-care (01) ==
PROVIDERS: Emergency Provider Student in an Organized Health Care Education/Training Program; PCP Family Medicine; Visit Provider Student in an Organized Health Care Education/Training Program
DX: U07.1 COVID-19 (principal); N39.0 Urinary tract infection, site not specified; Z87.891 Personal history of nicotine dependence
CPT/HCPCS: 71046; 80048; 81001; 85025; 87631; 93005; 96374; 99285; A4216; J2405

== ENCOUNTER → 2025-07-19 | Outpatient (CLI) | payer MEDICARE, SELFPAY ==
--- NOTE | 2025-07-19 13:02 | CDU_ITS ---
Reason For Study Reason For Study: Carotid stenosis Rt. Velocities/BP Lt. Velocities/BP Prox CCA 58.9/8.8 cm/sec. Prox CCA 82.6/8.8 cm/sec. Mid CCA 58.9/10.7 cm/sec. Mid CCA 68.1/11.5 cm/sec. Dist CCA 52.2/10.7 cm/sec. Dist CCA 51.3/11.6 cm/sec. Prox ICA 49.4/13.5 cm/sec. Prox ICA 48.5/11.6 cm/sec. Mid ICA 53.2/15.4 cm/sec. Mid ICA 56/15.4 cm/sec. Dist ICA 52.6/11.3 cm/sec. Dist ICA 53.2/14.2 cm/sec. Rt. ICA/CCA = 0.90. Lt. ICA/CCA = 0.82. Prox ECA 82.5/4.1 cm/sec. Prox ECA 64.5/4.1 cm/sec. Rt. Vert. 55.1/14.5 cm/sec. Lt. Vert. 47/11.4 cm/sec. Right Extracranial There is homogeneous, smooth atherosclerotic plaque noted in the right common carotid artery. There is homogeneous, smooth atherosclerotic plaque noted in the right internal carotid artery. There is heterogeneous, irregular atherosclerotic plaque noted in the right external carotid artery. Antegrade flow is noted in the right vertebral artery. Left Extracranial There is homogeneous, smooth atherosclerotic plaque noted in the left common carotid artery. There is heterogeneous, irregular atherosclerotic plaque noted in the left internal carotid artery. There is heterogeneous, irregular atherosclerotic plaque noted in the left external carotid artery. Antegrade flow is noted in the left vertebral artery. Procedure Carotid Duplex 59043. This is a Carotid Duplex examination using B-mode, color flow and specral Doppler. Exam performed in department. VL/Carotid Duplex Ultrasound Interpretation Summary Mild (<50%) stenosis right extracranial internal carotid. Mild (<50%) stenosis left extracranial internal carotid. Flow within the vertebral arteries is antegrade bilaterally. Ordering Physician: Shant Sommers Referring Physician: Shant Sommers Performed By: Paula Tejada RVT
== END | disposition home or self-care (01) ==
PROVIDERS: PCP Family Medicine; Referring Provider Family Medicine; Visit Provider Family Medicine
DX: I65.23 Occlusion and stenosis of bilateral carotid arteries (principal)
CPT/HCPCS: 93880

== ENCOUNTER → 2025-08-15 | Outpatient (CLI) | payer MEDICARE, SELFPAY ==
--- NOTE | 2025-08-15 15:13 | ECHOCS_ITS ---
Reason For Study Reason For Study: MURMUR Procedure This was a 2D Doppler, Color Flow transthoracic echocardiogram. The study was technically difficult. Limited views were obtained. Exam performed in department. Left Ventricle Normal LV size. Moderate concentric left ventricular hypertrophy. LVEF 75-80%. Stage II diastolic dysfunction with elevated left atrial filling pressures. 24 mmHg mid LV gradient with Valsalva. Right Ventricle Normal right ventricle. Atria The left atrium is moderately enlarged. Normal right atrium. Mitral Valve Mild-Moderate (1-2+) mitral valve insufficiency. Tricuspid Valve Mild (1+) tricuspid valve insufficiency. Normal pulmonary artery pressure. Aortic Valve Moderately calcified aortic valve. Mild aortic valve stenosis. Valve area 1.4 cm?? by planimetry. Pulmonic Valve The pulmonic valve is not well visualized. Great Vessels Normal sized aortic root. Pericardium/Pleural No pericardial effusion. Medication 22 gauge I.V. with prn adaptor inserted into right arm. Diluted definity 2ml given slow IV push to enhance endocardial definition. MMode/2D Measurements & Calculations LVIDd: 4.0 cm IVSd: 1.6 cm LVOT diam: 2.0 cm LVIDs: 2.4 cm LVPWd: 1.5 cm FS: 41.8 % LVOT area: 3.1 cm2 Ao root diam: 3.2 cm LAV(MOD-bp): 47.6 ml LVAd ap4: 29.1 cm2 LA dimension: 4.4 cm LAV(MOD-bp) Indexed: 25.0 ml/m2 LVLd ap4: 8.5 cm LAV(MOD-sp2): 49.7 ml EDV(MOD-sp4): 83.4 ml LAV(MOD-sp4): 42.0 ml EDV(sp4-el): 84.6 ml LVAs ap4: 12.0 cm2 LVLs ap4: 7.1 cm ESV(MOD-sp4): 17.0 ml ESV(sp4-el): 17.3 ml EF(MOD-sp4): 79.6 % EF(sp4-el): 79.5 % SV(MOD-sp4): 66.4 ml SV(sp4-el): 67.3 ml Aortic Valve Planimetry: 1.4 cm2 SI(MOD-sp4): 34.9 ml/m2 LA A4 area: 15.8 cm2 LA dimension(2D): 4.4 cm RA A4 area: 8.5 cm2 Time Measurements MV dec time: 0.39 sec Doppler Measurements & Calculations MV E max ash: 90.6 cm/sec Lat Peak E' Ash: 4.1 cm/sec Med Peak E' Ash: 3.8 cm/sec MV A max ash: 111.9 cm/sec E/E' lat: 21.9 E/E' med: 23.8 MV E/A: 0.81 MV V2 max: 117.6 cm/sec MV dec slope: 231.0 cm/sec2 Ao V2 max: 175.2 cm/sec MV max P.5 mmHg Ao max P.7 mmHg MV V2 mean: 57.5 cm/sec Ao V2 mean: 124.0 cm/sec MV mean P.8 mmHg Ao mean P.1 mmHg MV V2 VTI: 50.0 cm Ao V2 VTI: 43.0 cm MVA(VTI): 2.1 cm2 AV (velocity ratio): 0.79 AYLEEN(I,D): 2.4 cm2 AYLEEN(V,D): 2.1 cm2 LV V1 max: 120.9 cm/sec SV(LVOT): 104.1 ml PA V2 max: 95.1 cm/sec LV V1 max P.8 mmHg PA V2 mean: 62.5 cm/sec LV V1 mean P.0 mmHg LV V1 mean: 95.1 cm/sec LV V1 VTI: 33.8 cm TR max ash: 281.6 cm/sec TR max P.7 mmHg ECHO/Echo Complete W/ Contrast Interpretation Summary Moderate concentric left ventricular hypertrophy. LVEF 75-80%. Stage II diastolic dysfunction with elevated left atrial filling p ressures. 24 mmHg mid LV gradient with Valsalva. The left atrium is moderately enlarged. Mild-Moderate (1-2+) mitral valve insufficiency. Mild (1+) tricuspid valve insufficiency. Moderately calcified aortic valve. Mild aortic valve stenosis. Valve area 1.4 c m?? by planimetry. Ordering Physician: Adrien Smart Referring Physician: Adrien Smart Performed By: Liudmila Nevarez RCS
== END | disposition home or self-care (01) ==
LOC: CVS 15:12
PROVIDERS: PCP Family Medicine; Referring Provider Family Medicine; Visit Provider Family Medicine
DX: R01.1 Cardiac murmur, unspecified (principal)
CPT/HCPCS: 93306; Q9957; A4216; C8929

== ENCOUNTER 2025-10-24 10:30 | Outpatient (RCR) | payer MEDICARE, SELFPAY ==
--- NOTE | 2025-08-06 16:02 | HP.PTEVAL ---
Patient's Visit Information Visit Information Visit Information: FRED RESTREPO is a 84 year old F referred to Physical Therapy by Dr. Shant Sommers MD with a diagnosis of Knee OA. Date of Evaluation: 08/06/25 Physical Therapist: Martinez Cordova, PT, ATC Visit Plan Frequency: 2x /Week Duration: 4-6 Weeks Plan: B LE strengthening, core stab ex's, balance and proprio, stair negotiation, gait training, nu step, and HEP Subjective Subjective: Pt reports she has had B knees replaced approximately 2 years ago. Pt notes she is not in pain today, but struggles with her mobility. Pt reports she gets tired very easy which limits her ability to get ambulate and perform duties around her house. Pt reports she only has 2 steps in her house that she needs to negotiate one step at a time to get from her garage to her house. Pt notes she walked in here today whith a cane that she usually uses if she is walking on uneven ground. Pt reports B LE's are numb from her knees to her feet secondary to peripheral neuropathy. Pt reports no sleep difficulty at this time secondary to pain. Pt notes she has significant pain with sit to stand transfers without the use of her UE's. Pt lives alone at this time. Objective Objective: Neuro: B LE sensation is WNL to light touch TU sec sit to stand: 7 reps without UE's, 13 reps with UE's MMT: R knee flex= 25, ext= 37; L knee flex= 27, ext= 38 #F Gait: Pt is able to ambulate 680 feet until wanting to rest secondary to fatigue Balance/Special Test Scores Lower Extremity Functional Score: 56 Goals Goal 1:: Pt will perform TUG test in under 10 sec to aid with gait efficiency Goal Time Frame: 4-6 Weeks Goal 2:: Pt will ambulate greater than 1000 feet without needing to rest to aid with commun ity ambulation Goal Time Frame: 4-6 Weeks Goal 3:: Pt will perform 10 sit to stand reps without UE's to aid with I transfers Goal Time Frame: 4-6 Weeks Goal 4:: I with HEP Goal Time Frame: 4-6 Weeks Rehabilitation Potential Physical Therapy Diagnosis: Pt has B LE weakness and difficulty with functional mobility secondary to debilitation Rehabilitation Potential: Good Anticipated Interventions Patient/Client Instruction: Educate patient on: Condition and Plan of Care For the Purpose of:: To improve self management Therapeutic Exercise to Include: Strength training, Endurance training, Balance training, Gait and locomotor training, Active ROM and Dynamic Lumbar Stabilization For the Purpose of:: To improve muscle performance and motor function, To improve ability to perform ADL's, To increase tolerance to activity/condition/position and To improve gait and locomotor functions Text: Thank you for the opportunity to evaluate your patient. For Medicare and Medicare HMO plans, please review the plan of care and approve it. It will need to be FAXED BACK to us at [phone] for Medicare purposes. For Medicare only, by signing this I certify the plan of care. Please let me know if there are questions or concerns regarding this plan of care. Physician Signature: Date:
--- NOTE | 2025-12-02 10:24 | HP.PTDCNRP_ITS ---
Patient Information Patient Information: FRED RESTREPO was seen in my office for initial evaluation on 08/06/25. The following Plan of Care was established for this patient: POC Established Initial Frequency: 2x /Week Initial Duration: 4-6 Weeks Anticipated Interventions Patient/Client Instruction: Educate patient on: Condition and Plan of Care For the Purpose of:: To improve self management Therapeutic Exercise to Include: Strength training, Endurance training, Balance training, Gait and locomotor training, Active ROM and Dynamic Lumbar St abilization For the Purpose of:: To improve muscle performance and motor function, To improve ability to perform ADL's, To increase tolerance to activity/condition/position and To improve gait and locomotor functions Last Seen Last Seen: This patient was last seen in our office . Pertinent comments regarding their Physical therapy will appear below: Pt has not returned in greater than 30 days and is discontinued at this time. At this point I will be discontinuing this patient from physical therapy. I would be happy to see this patient again in the future if found appropriate by the physician. Thank you! Martinez Cordova, PT, ATC Balance/Gait/Functional tests Balance/Special Test Scores Lower Extremity Functional Score: 56
== END 2025-10-24 19:00 | disposition home or self-care (01) ==
LOC: PT 10:30
PROVIDERS: PCP Family Medicine; Referring Provider Family Medicine; Visit Provider Family Medicine
DX: M17.10 Unilateral primary osteoarthritis, unspecified knee (principal)
CPT/HCPCS: 97110; 97161

== ENCOUNTER → 2025-10-30 | Outpatient (CLI) | payer MEDICARE, SELFPAY ==
--- OUTSIDE RECORDS SUMMARY | 2025-10-30 10:20 | XMS RPT_ITS | CCD ---
Author Organization [facility] Care Team Providers Care Ultrasonic Solderer Name Role Phone Dr. Alex Sommers Primary Care Provider Dr. Alex Sommers Referring Provider Dr. Winter Jolley Attending Provider Dr. Alex Sommres Primary Care Provider [phone] Dr. Alex Sommers Referring Provider [phone] Dr. Winter Jolley Attending Provider [phone] Dr. Luis Li Attending Provider Dr. Delta Perez Attending Provider [phone] Dr. Alex Sommers Primary Care Provider Dr. Alex Sommers Referring Provider Dr. Alex Sommers Other Provider Dr. Adrien Abraham Attending Provider MATTHIEU ABDI, ALEX Primary Care Physician ZAN ABDI, DR JOSE RAMON Clemons Attending Sathya Rubio MD, ALEX Primary Care Fredis ZULUAGA MD, DR JOSE RAMON Clemons Attending Sathya Rubio MD, ALEX Primary Care Fredis ZULUAGA MD, DR JOSE RAMON Clemons Attending Sathya Rubio MD, ALEX Primary Care Fredis SOMMERS MD, ALEX Primary Care Fredis ZULUAGA MD, DR JOSE RAMON Clemons Admitting Sathya Pedersen MD, DR JOSE RAMON Clemons Referring Sathya Campbell, RICHARD [employer] Consult[employer] Chula PAYAN, RICHARD Fierro Attending Chula ZULUAGA MD, DR JOSE RAMON Clemons Attending Sathya Rubio MD, ALEX Primary Care Unavailable ZAN ABDI, DR JOSE RAMON Clemons Attending Sathya Rubio MD, ALEX Primary Care Unavailable Dr. Alex Sommers Primary Care Provider [phone] Dr. Adolfo Rice Attending Provider Dr. Fredis Edwards Referring Provider Zan, Dr. Younger Admit Provider Dr. Jose Ramon Zuluaga Referring Provider Dr. Jose Ramon Zuluaga Other Provider Dr. Stefano Avina Attending Provider Dr. Stefano Avina Other Provider Dr. Fredis Quiros Attending Provider Matthieu ABDI, Dr. Alex Gage Primary Care Provider [phone] Matthieu ABDI, Dr. Alex Gage Attending Provider [phone] Matthieu ABDI, Dr. Alex Gage Referring Provider Alex Sommers MD Primary Care Provider Matthieu ABDI, Dr. Alex Gage Primary Care Provider Matthieu ABDI, Dr. Alex Gage Attending Provider [phone] Matthieu ABDI, Dr. Alex Gage Referring Provider [phone] Dr. Sophia Quijano MD Emergency Provider Unavailab Scott ABDI, Dr. Alex Gage Primary Care Physician Matthieu ABDI, Dr. Alex Gage Attending Physician Dr. Sophia Quijano MD Attending Physician Unavail ale Quijano MD, Dr. Cortes [facility] Rubeni he Jacobsen MD, Dr. Doe Clemons Attending Physician Adrien Smart Attending Unavailable Adrien Smart Referring Unavailable Alex Sommers Primary Care Unavailable Alex Sommers Attending Unavailable Alex Sommers Primary Care Unavailable Alex Sommers Referring Unavailable Alex Sommers Primary Care Unavailable Alex Sommers Attending Unavailable Alex Sommers Referring Unavailable Alex Sommers Primary Care Unavailable Alex Sommers Attending Unavailable Alex Sommers Referring Unavailable Alex Sommers Primary Care Unavailable Alex Sommers Attending Unavailable Alex Sommers Referring Unavailable Sophia Quijano Attending Unavailable Alex Sommers Primary Care Unavailable Alex Sommers Primary Care Unavailable Alex Sommers Attending Unavailable Alex Sommers Referring Unavailable Alex Sommers Primary Care Unavailable Alex Sommers Attending Unavailable Alex Sommers Referring Unavailable Alex Sommers Primary Care Unavailable Kayce Jaquez Attending Unavailable lAex Sommers Referring Unavailable Alex Sommers Attending Unavailable Alex Sommers Primary Care Unavailable Medications Current Medications Medication Drug Class(es) Dates Sig (Normalized) Sig (Original) acetaminophen 500 mg oral tablet (20 sources) Start: 01-02-2024 take 2 tablets by mouth every six hours Start: 01-02-2024 take 1000 mg by mout h every six hours Acetaminophen Active 1000 MG PO EVERY 6 HOURS 0 January 02, 2024 12:00am Start: 12-23-2023 take 2 tablets by mo uth every eight hours Start: 12-23-2023 take 1000 mg by mout [...] Status: Ordered aspirin 81 mg chewable tablet (20 sources) Platelet Aggregation Inhibitor, Nonsteroidal Anti-inflammatory Drug Start: 12-23-2023 End: 01-02-2024 take 1 tablet by mouth twice daily at mealtime Start: 09-21-2023 End: 10-21-2023 take 1 tablet by mouth twice daily at mealtime Aspirin Low Dose 81 mg oral tablet Dose : 81 mg = 1 tab(s), Oral, BID, Take 81 mg aspirin twice daily with food for 4 weeks postoperatively for DVT prophylaxis., # 60 tab(s), 0 Refill(s), Pharmacy: [email or web address] #[id number], 165.1, cm, 09/20/23 13:47:00 EST, Height, kg, [...] MG PO DAILY May 25, 2023 11:00pm cephalexin 500 mg oral capsule (3 sources) Cephalosporin Antibacterial Start: 07-07-2025 take 1 capsule by mouth every twelve hours cholecalciferol 0.05 mg oral capsule (20 sources) Vitamin D Start: 06-23-2022 take 1 capsule by mouth once daily diclofenac sodium 75 mg delayed release oral [...] 2022 9:19am famotidine 20 mg oral tablet (9 sources) Histamine-2 Receptor Antagonist Start: 12-23-2023 take 1 tablet by mouth once daily Start: 09-21-2023 Pepcid 20 mg o ral tablet Dose : 20 mg = 1 tab(s), Oral, qDay, # 30 tab(s), 0 Refill(s), [facility]: [id number], 165.1, cm, 09/20/23 13:47:00 EST, Height, kg, 09/20/23 13:47:00 EST, Dosing Weight Start Date: 09/21/23 Status: Ordered gabapentin 300 mg oral capsule (5 sources) Anti-epileptic Agent Start: 08-10-2024 take 1 capsule by mouth three times daily as needed for pain losartan potassium 100 mg oral tablet (6 sources) Angiotensin 2 Receptor Carlitos Start: 01-02-2024 take 1 tablet by mouth once daily lovastatin 40 mg oral tablet (20 sources) HMG-CoA Reductase Inhibitor Start: 04-29-2020 take 1 tablet by mouth once daily meclizine hydrochloride 25 mg oral tablet (5 sources) Antiemetic Start: 05-26-2023 take 25 mg by mouth four times daily as needed Meclizine Active 25 MG PO 4 TIMES DAILY NEEDED May 25, 2023 11:00pm melatonin 10 mg sublingual tablet (14 sources) Start: 01-02-2024 take 1 tablet by mouth at bedtime Start: 12-23-2023 End: 01-02-2024 take 1 tablet by mouth at bedtime Melatonin 3 mg Tablet Discontinued 3 mg PO AT BEDTIME 0 0 December 23, 2023 1:00am January 02, 2024 8:59am sleep meloxicam 7.5 mg oral tablet (14 sources) Nonsteroidal Anti-inflammatory Drug Start: 12-23-2023 End: 01-02-2024 take 1 tablet by mouth twice daily at mealtime oxyCODONE hydrochloride 5 mg oral tablet (14 sources) Opioid Agonist Start: 08-10-2024 take 1 tablet by mouth every six hours as needed for pain Start: 12-23-2023 End: 01-02-2024 take 5-10 mg [...] Refill(s), 09/28/23 6:58:00 AM EST, [facility]: [email or web address] #[id number], Status post total right knee replacement, 165.1, cm, 09/20/23 13:47:00 EST, Height, 87.9, kg, 09/20/23 13:47:00 EST, Dosing Weight Start Date: 09/21/23 Stop Date: 09/28/23 Status: Ordered traMADol hydrochloride 50 mg oral tablet (6 sources) Opioid Agonist Start: 01-02-2024 take 1 tablet by mouth every six hours as needed for pain Vitamin D3 50 mcg (2000 intl units) [...] 9:19am docusate sodium 50 mg / sennosides, snf 8.6 mg oral tablet (9 sources) Start: 12-23-2023 End: 01-02-2024 Sennosides-Docusat e [...] day(s), # 12 tab(s), 0 Refill(s), [id number], 165.1, cm, 09/20/23 13:47:00 EST, Height, kg, [...] Immune Systm,Reg (Ensure Surgery) 0.08-1.4 gram-kcal/mL Liquid (8 sources) Start: 12-23-2023 End: 01-02-2024 Nut.Tx.Comp. Immune [...] MEALS 0 December 23, 2023 12:00am Problems Problem Classification Problem Date Documented Da te Episodic/Chronic Conditions associated with dizziness or vertigo (20 sources) Vertigo; Translations: [Dizziness and giddiness] 04-30-2020 Episodic Deficiency and other anemia (7 sources) Anemia; Translations: [Anemia, unspecified] 12-23-2023 Episodic Deficiency and other anemia (2 sources) Anemia, unspecified; Translations: [Anemia, unspecified] 12-23-2023 Episodic Delirium, dementia, and amnestic and other cognitive disorders (2 sources) Dementia; Translations: [Unspecified dementia without behavioral disturbance] 06-29-2025 Chronic Disorders of lipid metabolism (20 sources) Hyperlipidemia; Translations: [Hyperlipidemia, unspecified] Chronic E Codes: Fall (15 sources) Fall; Translations: [Unspecified fall, initial encounter] 05-24-2023 Episodic Essential hypertension (20 sources) Hypertensive disorder; Translations: [Essential (primary) hypertension] Onset: 09-20-2023 Chronic Comment on above: CONTROLLED ON MED Heart valve disorders (1 source) Cardiac murmur, unspecified; Translations: [Cardiac murmur, unspecified] Onset: 08-29-2025 Episodic Intracranial injury (14 sources) Concussion injury of body structure; Translations: [Concussion] 05-26-2023 Episodic Malaise and fatigue (10 sources) Asthenia; Translations: [Other malaise] Onset: 07-11-2025 12-23-2023 Episodic Occlusion or stenosis of precerebral arteries (10 sources) Carotid artery stenosis; Translations: [Occlusion and stenosis of unspecified carotid artery] Onset: 07-26-2025 12-23-2023 Chronic Open wounds of head; neck; and trunk (15 sources) Scalp laceration; Translations: [Laceration without foreign body of scalp, initial encounter] 05-24-2023 Episodic Osteoarthritis (1 source) Osteoarthritis; Translations: [Unspecified osteoarthritis, unspecified site] Onset: 09-20-2023 Chronic Other bone disease and musculoskeletal deformities (20 sources) Postmenopausal osteopenia; Translations: [Other specified disorders of bone density and structure, unspecified site] 06-23-2022 Episodic Other bone disease and musculoskeletal deformities (6 sources) Other specified disorders of bone density and structure, unspecified site; Translations: [Disorder of bone and cartilage, unspecified] Episodic Other bone disease and musculoskeletal deformities (7 sources) Osteopenia; Translations: [Other specified disorders of bone density and structure, unspecified site] 12-23-2023 Episodic Other connective tissue disease (2 sources) Artificial knee joint present; Translations: [Presence of unspecified artificial knee joint] Onset: 09-20-2023 Chronic Other connective tissue disease (8 sources) History of total knee arthroplasty; Translations: [Presence of left artificial knee joint] 12-22-2023 Chronic Other connective tissue disease (5 sources) Presence of left artificial knee joint; Translations: [Knee joint replacement] 12-23-2023 Chronic Other fractures (5 sources) Fracture of left rib; Translations: [Fracture of one rib, left side, initial encounter for closed fracture] 08-18-2024 Episodic Other hereditary and degenerative nervous system conditions (1 source) Mild cognitive impairment, so stated; Translations: [Mild cognitive impairment of uncertain or unknown etiology] Onset: 03-06-2025 Chronic Other injuries and conditions due to external causes (15 sources) Hematoma; Translations: [Other injury of unspecified body region, initial encounter] 05-24-2023 Episodic Other nervous system disorders (7 sources) Disorder of brain; Translations: [Encephalopathy, unspecified] 12-23-2023 Chronic Other nervous system disorders (2 sources) Encephalopathy, unspecified; Translations: [Encephalopathy, unspecified] 12-23-2023 Chronic Other nervous system disorders (1 source) Impaired cognition; Translations: [Other symptoms and signs involving cognitive functions and awareness] Onset: 09-21-2023 Episodic Other nervous system disorders (8 sources) Acute postoperative pain; Translations: [Other acute postprocedural pain] 12-23-2023 Episodic Other screening for suspected conditions (not mental disorders or infectious disease) (2 sources) Other abnormal and inconclusive findings on diagnostic imaging of breast; Translations: [Encounter for screening mammogram for malignant neoplasm of breast] Onset: 06-18-2025 Episodic Residual codes; unclassified (7 sources) Edema of left lower limb; Translations: [Localized edema] 12-23-2023 Episodic Residual codes; unclassified (2 sources) Localized edema; Translations: [Edema] 12-23-2023 Episodic Skin and subcutaneous tissue infections (9 sources) Cellulitis of left knee; Translations: [Cellulitis of left lower limb] 12-23-2023 Episodic Urinary tract infections (3 sources) Acute urinary tract infection; Translations: [Urinary tract infection, site not specified] 07-07-2025 Episodic Viral infection (3 sources) Disease caused by 2019-nCoV; Translations: [COVID-19] 07-07-2025 Episodic Results Test Name Value Interpretation Reference Range Facility Echo Complete W/ Contraston 08-15-2025 Echo Complete W/ Contrast [facility] [place] [address] Echo Complete W/ Contrast 08/15/25 1513 MR#: [id number] Acct: [id number] Name: FRED MON Rep #: [id number] : 1940 84 From: Kayce Jaquez MD Attending Dr: Dr. Adrien Smart MD Status: REG CLI Ordering Dr: Adrien Smart MD Date: 08/15/25 Location: [facility] Sex: F C Admitted: Reason For Study Reason For Study: MURMUR Procedure This was a 2D Doppler, Color Flow transthoracic echocardiogram. The study was technically difficult. Limited views were obtained. Exam performed in department. Left Ventricle Normal LV size. Moderate concentric left ventricular hypertrophy. LVEF 75-80%. Stage II diastolic dysfunction with elevated left atrial filling pressures. 24 mmHg mid LV gradient with Valsalva. Right Ventricle Normal right ventricle. Atria The left atrium is moderately enlarged. Normal right atrium. Mitral Valve Mild-Moderate (1-2+) mitral valve insufficiency. Tricuspid Valve Mild (1+) tricuspid valve insufficiency. Normal pulmonary artery pressure. Aortic Valve Moderately calcified aortic valve. Mild aortic valve stenosis. Valve area 1.4 cm?? by planimetry. Pulmonic Valve The pulmonic valve is not well visualized. Great Vessels Normal sized aortic root. Pericardium/Pleural No pericardial effusion. Medication 22 gauge I.V. with prn adaptor inserted into right arm. Diluted definity 2ml given slow IV push to enhance endocardial definition. MMode/2D Measurements Calculations LVIDd: 4.0 cm IVSd: 1.6 cm LVOT diam: 2.0 cm LVIDs: 2.4 cm LVPWd: 1.5 cm FS: 41.8 % LVOT area: 3.1 cm2 Ao root diam: 3.2 cm LAV(MOD-bp): 47.6 ml LVAd ap4: 29.1 cm2 LA dimension: 4.4 cm LAV(MOD-bp) Indexed: 25.0 ml/m2 LVLd ap4: 8.5 cm LAV(MOD-sp2): 49.7 ml EDV(MOD-sp4): 83.4 ml LAV(MOD-sp4): 42.0 ml EDV(sp4-el): 84.6 ml LVAs ap4: 12.0 cm2 LVLs ap4: 7.1 cm ESV(MOD-sp4): 17.0 ml ESV(sp4-el): 17.3 ml EF(MOD-sp4): 79.6 % EF(sp4-el): 79.5 % SV(MOD-sp4): 66.4 ml SV(sp4-el): 67.3 ml Aortic Valve Planimetry: 1.4 cm2 SI(MOD-sp4): 34.9 ml/m2 LA A4 area: 15.8 cm2 LA dimension(2D): 4.4 cm RA A4 area: 8.5 cm2 Time Measurements MV dec time: 0.39 sec Doppler Measurements Calculations MV E max damien: 90.6 cm/sec Lat Peak E' Damien: 4.1 cm/sec Med Peak E' Damien: 3.8 cm/sec MV A max damien: 111.9 cm/sec E/E' lat: 21.9 E/E' med: 23.8 MV E/A: 0.81 MV V2 max: 117.6 cm/sec MV dec slope: 231.0 cm/sec2 Ao V2 max: 175.2 cm/sec MV max P.5 mmHg Ao max P.7 mmHg MV V2 mean: 57.5 cm/sec Ao V2 mean: 124.0 cm/sec MV mean P.8 mmHg Ao mean P.1 mmHg MV V2 VTI: 50.0 cm Ao V2 VTI: 43.0 cm MVA(VTI): 2.1 cm2 AV (velocity ratio): 0.79 AYLEEN(I,D): 2.4 cm2 AYLEEN(V,D): 2.1 cm2 LV V1 max: 120.9 cm/sec SV(LVOT): 104.1 ml PA V2 max: 95.1 cm/sec LV V1 max P.8 mmHg PA V2 mean: 62.5 cm/sec LV V1 mean P.0 mmHg LV V1 mean: 95.1 cm/sec LV V1 VTI: 33.8 cm TR max damien: 281.6 cm/sec TR max P.7 mmHg ECHO/Echo Complete W/ Contrast Interpretation Summary Moderate concentric left ventricular hypertrophy. LVEF 75-80%. Stage II diastolic dysfunction with elevated left atrial filling pressures. 24 mmHg mid LV gradient with Valsalva. The left atrium is moderately enlarged. Mild-Moderate (1-2+) mitral valve insufficiency. Mild (1+) tricuspid valve insufficiency. Moderately calcified aortic valve. Mild aortic valve stenosis. Valve area 1.4 cm?? by planimetry. Ordering Physician: Adrien Smart Referring Physician: Adrien Smart Performed By: Liudmila Nevarez RCS 08/16/25 111 Date Kayce Jaquez MD CC: Dr. Alex Sommers MD; Dr. 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 [place] [address] / REHABILITATION SERVICES INITIAL EVALUATION MR#: [id number] Acct: [id number] Name: FRED MON Rep #: [id number] : 1940 84 From: Martinez Cordova PT, ATC Referring Dr.: Dr. Alex Sommers MD Status: REG RCR [facility] Patient's Visit Information Visit Information Visit Information: FRED MON is a 84 year old F referred to Physical Therapy by Dr. Alex Sommers MD with a diagnosis of Knee OA. Date of Evaluation: 08/06/25 Physical Therapist: Martinez Cordova, PT, ATC Visit Plan Frequency: 2x /Week Duration: 4-6 Weeks Plan: B LE strengthening, core stab ex's, balance and proprio, stair negotiation, gait training, nu step, and HEP Subjective Subjective: Pt reports she has had B knees replaced approximately 2 years ago. Pt notes she is not in pain today, but struggles with her mobility. Pt reports she gets tired very easy which limits her ability to get ambulate and perform duties around her house. Pt reports she only has 2 steps in her house that she needs to negotiate one step at a time to get from her garage to her house. Pt notes she walked in here today whith a cane that she usually uses if she is walking on uneven ground. Pt reports B LE's are numb from her knees to her feet secondary to peripheral neuropathy. Pt reports no sleep difficulty at this time secondary to pain. Pt notes she has significant pain with sit to stand transfers without the use of her UE's. Pt lives alone at this time. Objective Objective: Neuro: B LE sensation is WNL to light touch TU sec sit to stand: 7 reps without UE's, 13 reps with UE's MMT: R knee flex= 25, ext= 37; L knee flex= 27, ext= 38 #F Gait: Pt is able to ambulate 680 feet until wanting to rest secondary to fatigue Balance/Special Test Scores Lower Extremity Functional Score: 56 Goals Goal 1:: Pt will perform TUG test in under 10 sec to aid with gait efficiency Goal Time Frame: 4-6 Weeks Goal 2:: Pt will ambulate greater than 1000 feet without needing to rest to aid with commun ity ambulation Goal Time Frame: 4-6 Weeks Goal 3:: Pt will perform 10 sit to stand reps without UE's to aid with I transfers Goal Time Frame: 4-6 Weeks Goal 4:: I with HEP Goal Time Frame: 4-6 Weeks Rehabilitation Potential Physical Therapy Diagnosis: Pt has B LE weakness and difficulty with functional mobility secondary to debilitation Rehabilitation Potential: Good Anticipated Interventions Patient/Client Instruction: Educate patient on: Condition and Plan of Care For the Purpose of:: To improve self management Therapeutic Exercise to Include: Strength training, Endurance training, Balance training, Gait and locomotor training, Active ROM and Dynamic Lumbar Stabilization For the Purpose of:: To improve muscle performance and motor function, To improve ability to perform ADL's, To increase tolerance to activity/condition/posi tion and To improve gait and locomotor functions Text: Thank you for the opportunity to evaluate your patient. For Medicare and Medicare HMO plans, please review the plan of care and approve it. It will need to be FAXED BACK to us at [phone] for Medicare purposes. For Medicare only, by signing this I certify the plan of care. Please let me know if there are questions or concerns regarding this plan of care. Physician Signature: Date: 08/06/25 1602 CC: Dr. Alex Sommers MD [facility] Signed Normal [facility] Carotid Duplex Ultrasoundon 07-19-2025 Carotid Duplex Ultrasound [facility] [address] [place] [address] Carotid Duplex Ultrasound 07/19/25 1312 MR#: [id number] Acct: [id number] Name: FRED MON Rep #: [id number] : 1940 84 From: Doe Jacobsen MD Attending Dr: Dr. Alex Sommers MD Status: R CLI Ordering Dr: Alex Sommers MD Date: 07/19/25 Location: [facility] Sex: F C Admitted: Reason For Study Reason For Study: Carotid stenosis Rt. Velocities/BP Lt. Velocities/BP Prox CCA 58.9/8.8 cm/sec. Prox CCA 82.6/8.8 cm/sec. Mid CCA 58.9/10.7 cm/sec. Mid CCA 68.1/11.5 cm/sec. Dist CCA 52.2/10.7 cm/sec. Dist CCA 51.3/11.6 cm/sec. Prox ICA 49.4/13.5 cm/sec. Prox ICA 48.5/11.6 cm/sec. Mid ICA 53.2/15.4 cm/sec. Mid ICA 56/15.4 cm/sec. Dist ICA 52.6/11.3 cm/sec. Dist ICA 53.2/14.2 cm/sec. Rt. ICA/CCA = 0.90. Lt. ICA/CCA = 0.82. Prox ECA 82.5/4.1 cm/sec. Prox ECA 64.5/4.1 cm/sec. Rt. Vert. 55.1/14.5 cm/sec. Lt. Vert. 47/11.4 cm/sec. Right Extracranial There is homogeneous, smooth atherosclerotic plaque noted in the right common carotid artery. There is homogeneous, smooth atherosclerotic plaque noted in the right internal carotid artery. There is heterogeneous, irregular atherosclerotic plaque noted in the right external carotid artery. Antegrade flow is noted in the right vertebral artery. Left Extracranial There is homogeneous, smooth atherosclerotic plaque noted in the left common carotid artery. There is heterogeneous, irregular atherosclerotic plaque noted in the left internal carotid artery. There is heterogeneous, irregular atherosclerotic plaque noted in the left external carotid artery. Antegrade flow is noted in the left vertebral artery. Procedure Carotid Duplex 25820. This is a Carotid Duplex examination using B-mode, color flow and specral Doppler. Exam performed in department. VL/Carotid Duplex Ultrasound Interpretation Summary Mild (<50%) stenosis right extracranial internal carotid. Mild (<50%) stenosis left extracranial internal carotid. Flow within the vertebral arteries is antegrade bilaterally. Ordering Physician: Alex Sommers Referring Physician: Alex Sommers Performed By: Paula Tejada, RVT 07/19/252323 Date Doe Jacobsen MD CC: Dr. Alex Sommers MD Date Dictated: 07/19/25 131 Date Transcribed: 07/19/252323 Sales Representative [employer]: Signed Normal [facility] Duplex ultrasound of carotid artery reportOrdered By: Doe Jacobsen on 07-19-2025 Study report [facility] [address] [place] [address] Carotid Duplex Ultrasound 07/19/252 MR#: [id number] Acct: [id number] Name: FRED MON Rep #:[id number] : 1940 84 From: Doe Jacobsen MD Attending Dr: Dr. Alex Sommers MD Status: REG CLI Ordering Dr: Alex Sommers MD Date: 07/19/25 Location: [facility] Sex: F C Admitted: Reason For Study Reason For Study: Carotid stenosis Rt. Velocities/BP Lt. Velocities/BP Prox CCA 58.9/8.8 cm/sec. Prox CCA 82.6/8.8 cm/sec. Mid CCA 58.9/10.7 cm/sec. Mid CCA 68.1/11.5 cm/sec. Dist CCA 52.2/10.7 cm/sec. Dist CCA 51.3/11.6 cm/sec. Prox ICA 49.4/13.5 cm/sec. Prox ICA 48.5/11.6 cm/sec. Mid ICA 53.2/15.4 cm/sec. Mid ICA 56/15.4 cm/sec. Dist ICA 52.6/11.3 cm/sec. Dist ICA 53.2/14.2 cm/sec. Rt. ICA/CCA = 0.90. Lt. ICA/CCA = 0.82. Prox ECA 82.5/4.1 cm/sec. Prox ECA 64.5/4.1 cm/sec. Rt. Vert. 55.1/14.5 cm/sec. Lt. Vert. 47/11.4 cm/sec. Right Extracranial There is homogeneous, smooth atherosclerotic plaque noted in the right common carotid artery. There is homogeneous, smooth atherosclerotic plaque noted in the right internal carotid artery. There is heterogeneous, irregular atherosclerotic plaque noted in the right external carotid artery. Antegrade flow is noted in the right vertebral artery. Left Extracranial There is homogeneous, smooth atherosclerotic plaque noted in the left common carotid artery. There is heterogeneous, irregular atherosclerotic plaque noted in the left internal carotid artery. There is heterogeneous, irregular atherosclerotic plaque noted in the left external carotid artery. Antegrade flowis noted in the left vertebral artery. Procedure Carotid Duplex 52202. This is a Carotid Duplex examination using B-mode, color flow and specral Doppler. Exam performed in department. VL/Carotid Duplex Ultrasound Interpretation Summary Mild (<50%) stenosis right extracranial internal carotid. Mild (<50%) stenosis left extracranial internal carotid. Flow within the vertebral arteries is antegrade bilaterally. Ordering Physician: Alex Sommers Referring Physician: Alex Sommers Performed By: Paula Tejada RVT 07/19/25 2714 Date _ Doe Jacobsen MD CC: Dr. Alex Sommers MD ~ Date Dictated: 07/19/25 1312 Date Transcribed: 07/19/252323 Sales Representative [employer]: Signed [facility] Work Phone: 12 Lead EKGon 07-07-2025 12 Lead EKG [facility] Cardiovascular Services [address] [place] [address] 12 Lead EKG 07/07/25 0600 MR#: [id number] Acct: [id number] Name: FRED MON Rep #: [id number] : 1940 84 From: Adolfo Rice MD Attending Dr: Status: DEP ER Ordering Dr: Sophia Quijano MD Date: 07/07/25 Location: ED Sex: F C Admitted: Test Reason : WEAKNESS Blood Pressure : */* mmHG Vent. Rate : 69 BPM Atrial Rate : 69 BPM P-R Int : 174 ms QRS Dur : 142 ms QT Int : 442 ms P-R-T Axes : 53 -9 29 degrees QTcB Int : 473 ms Normal sinus rhythm Right bundle branch block Abnormal ECG Confirmed by Adolfo Rice ([id number]), associate editor MARCIA VARGAS ([id number]) on 07/09/2025 10:35:07 AM Referred By: CAMERON Confirmed By: Adolfo Rice 07/09/25 1035 Date Adolfo Rice MD CC: Dr. Sophia Quijano MD; Dr. Alex Sommers MD Signed Normal [facility] Absolute lymphocyte countOrd ered By: Sophia Quijano on 07-07-2025 Lymphocytes Auto (Unsp spec) [#/Vol] 0.99 10*3/uL 0.83-4.51 [facility] Absolute neutrophil countOrd ered By: Sophia Quijano on 07-07-2025 Neutrophils (Bld) [#/Vol] 4.0 10*3/uL 2.0-7.7 [facility] Anion gap in Serum or Plasma Ordered By: Sophia Quijano on 07-07-2025 Anion gap [Moles/Vol] 14 mmol/L 5-15 [facility] Automated lymphocyte count a s percentage of total leukocytesOrdered By: Sophia Quijano on 07-07-2025 Lymphocytes/100 WBC Auto (Unsp spec) 17.5 % Low 19-41 [facility] BUN/creatinine ratioOrdered By: Sophia Quijano on 07-07-2025 Urea nitrogen/Creatinine [Mass ratio] 17.6 mg/mg 10-20 [facility] Basic Metabolic Profile (BMP )on 07-07-2025 BUN/CRE 17.6 RATIO Normal 10-20 [facility] Comment on above: Performed By: #### M 100.678, [id number] #### [facility] [address] [place], [address] Calcium [Mass/Vol] 9.5 mg/dL Normal 7.6-11.0 [facility] Comment on above: Performed By: #### M 100.678, [id number] #### [facility] [address] [place], [address] Chloride [Moles/Vol] 102 mmol/L Normal 98-108 [facility] Comment on above: Performed By: #### M 100.678, [id number] #### [facility] [address] [place], [address] CO2 [Moles/Vol] 20.8 mmol/L Low 21.0-32.0 [facility] Comment on above: Performed By: #### M 100.678, [id number] #### [facility] [address] [place], [address] Creatinine [Mass/Vol] 0.79 mg/dL Normal 0.70-1.20 [facility] Comment on above: Performed By: #### M 100.678, [id number] #### [facility] [address] [place], [address] ECRCL 55.14 ml/min Normal 50-250 [facility] Comment on above: Performed By: #### M 100.678, [id number] #### [facility] [address] [place], [address] GAP 14 Normal 5-15 [facility] Comment on above: Performed By: #### M 100.678, [id number] #### [facility] [address] [place], [address] GFR/1.73 sq M.predicted among non-blacks MDRD (S/P/Bld) [Vol rate/Area] 74 mL/min/{1.73_m2} Normal >60 [facility] Comment on above: Result Comment: mL/m in/1.73m2 CKD-EPI Creatinine Equation (2020) Performed By: #### M 100.678, [id number] #### [facility] [address] [place], [address] Glucose [Mass/Vol] 118 mg/dL High 70-99 [facility] Comment on above: Performed By: #### M 100.678, [id number] #### [facility] [address] [place], [address] Potassium [Moles/Vol] 4.1 mmol/L Normal 3.3-5.1 [facility] Comment on above: Performed By: #### M 100.678, [id number] #### [facility] [address] [place], [address] Sodium [Moles/Vol] 137 mmol/L Normal 133-145 [facility] Comment on above: Performed By: #### M 100.678, [id number] #### [facility] [address] [place], [address] Urea nitrogen [Mass/Vol] 14 mg/dL Normal 4-19 [facility] Comment on above: Performed By: #### M 100.678, [id number] #### [facility] [address] [place], [address] Basophil percentageOrdered B y: Sophia Quijano on 07-07-2025 Basophils/100 WBC (Bld) 0.5 % 0-1 [facility] Bilirubin Test strip Ql (U)O rdered By: Sophia Quijano on 07-07-2025 Bilirubin Ql (U) Negative Negative [facility] CBC W/Diff, Automatedon 06-09 Absolute Lymph 0.99 X10 3/uL Normal 0.83-4.51 [facility] Comment on above: Performed By: #### M 100.678, [id number] #### [facility] [address] [place], [address] Absolute Neut 4.0 X10 3/uL Normal 2.0-7.7 [facility] Comment on above: Performed By: #### M 100.678, [id number] #### [facility] [address] [place], [address] Basophils/100 WBC (Bld) 0.5 % Normal 0-1 [facility] Comment on above: Performed By: #### M 100.678, [id number] #### [facility] [address] [place], [address] Eosinophils/100 WBC (Bld) 1.6 % Normal 0-5 [facility] Comment on above: Performed By: #### M 100.678, [id number] #### [facility] [address] [place], [address] Erythrocyte distribution width (RBC) [Ratio] 13.5 % Normal 11.6-14.6 [facility] Comment on above: Performed By: #### M 100.678, [id number] #### [facility] [address] [place], [address] Hematocrit (Bld) [Volume fraction] 35.0 % Low 37-47 [facility] Comment on above: Performed By: #### M 100.678, [id number] #### [facility] [address] [place], [address] Hemoglobin (Bld) [Mass/Vol] 12.1 g/dL Normal 12.0-15.0 [facility] Comment on above: Performed By: #### M 100.678, [id number] #### [facility] [address] [place], [address] IG% 0.200 Normal 0.0-0.9 [facility] Comment on above: Result Comment: IG% - Immature Granulocytes (promyelocytes, myelocytes and metamyelocytes) > 1% indicates that a LEFT SHIFT is Present. Performed By: #### M 100.678, [id number] #### [facility] [address] [place], [address] Lymphocytes/100 WBC (Bld) 17.5 % Low 19-41 [facility] Comment on above: Performed By: #### M 100.678, [id number] #### [facility] [address] [place], [address] MCH (RBC) [Entitic mass] 30.5 pg Normal 27.0-32.0 [facility] Comment on above: Performed By: #### M 100.678, [id number] #### [facility] [address] [place], [address] MCHC (RBC) [Mass/Vol] 34.6 g/dL Normal 32-36 [facility] Comment on above: Performed By: #### M 100.678, [id number] #### [facility] [address] [place], [address] MCV (RBC) [Entitic vol] 88.2 fL Normal 81-99 [facility] Comment on above: Performed By: #### M 100.678, [id number] #### [facility] [address] [place], [address] Monocytes/100 WBC (Bld) 10.1 % High 0-10 [facility] Comment on above: Performed By: #### M 100.678, [id number] #### [facility] [address] [place], [address] Neutrophils/100 WBC (Bld) 70.1 % High 47-70 [facility] Comment on above: Performed By: #### M 100.678, [id number] #### [facility] [address] [place], [address] Nucleated RBC (Bld) [#/Vol] 0 10*3/uL Normal 0-5 [facility] Comment on above: Performed By: #### M 100.678, [id number] #### [facility] [address] [place], [address] Platelet mean volume (Bld) [Entitic vol] 10.8 fL Normal 6.2-12.0 [facility] Comment on above: Performed By: #### M 100.678, [id number] #### [facility] [address] [place], [address] Platelets (Bld) [#/Vol] 130 10*3/uL Low 150-450 [facility] Comment on above: Performed By: #### M 100.678, [id number] #### [facility] [address] [place], [address] RBC (Bld) [#/Vol] 3.97 10*6/uL Low 4.2-5.4 [facility] Comment on above: Performed By: #### M 100.678, [id number] #### [facility] [address] [place], [address] RDW SD 43.8 fl Normal 35.1-43.9 [facility] Comment on above: Performed By: #### M 100.678, [id number] #### [facility] [address] [place], [address] WBC (Bld) [#/Vol] 5.7 10*3/uL Normal 4.4-11.0 [facility] Comment on above: Performed By: #### M 100.678, [id number] #### [facility] [address] [place], [address] Carbon dioxide, total [Moles /volume] in Central venous bloodOrdered By: Sophia Quijano on 07-07-2025 CO2 [Moles/Vol] 20.8 mmol/L Low 21.0-32.0 [facility] Chest PA and Lateralon 07-07 Chest PA and Lateral [facility] Imaging Services [address] [place] [address] Chest PA and Lateral MR#: [id number] Acct: [id number] Name: FRED MON Rep #: [id number] : 1940 F 84 From: Carole Hughes MD PCP: Dr. Alex Sommers MD Status: [facility] ER Study: Chest PA and Lateral Date of Exam: 07/07/25 Exam# [id number] Ordering Dr: Sophia Quijano MD PROCEDURE: CHEST PA AND LATERAL 07/07/2025 REASON FOR EXAM: COUGH, WEAKNESS TECHNIQUE: Procedure Code: RADCXR Modality: DX Procedure: CHEST PA AND LATERAL COMPARISON: X-ray 08/10/2024. FINDINGS: Hardware: Monitor electrodes overlie the chest. Heart: No cardiomegaly. Mediastinum: Unremarkable. Lungs: Clear. No pleural effusion or pneumothorax. Bones: No acute bony abnormalities. RAD/Chest PA and Lateral IMPRESSION: No acute cardiopulmonary abnormalities. Reading Location: [facility] CC: Dr. Sophia Quijano MD; Dr. 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 Alex Sommers MD Status:REG ER Location: ED HPI History of Present Illness Chief Complaint: Weakness Narrative Narrative: Patient is a 84-year-old female presenting to the emergency department for cough, nausea and feeling fatigued for 2 days. Patient has a past medical history of hyperlipidemia, hypertension and carotid artery stenosis. Patient did not take her medications this morning prior to arrival. Patient states that for the past 2 days she has felt generally weak. Denies any focal weakness or numbness. She reports a dry cough and some mild congestion. Denies fever, chills, sore throat. Denies chest pain, shortness of breath, abdominal pain, vomiting, diarrhea, dysuria or hematuria. She lives at home alone. She denies any recent falls. She denies any headache or neck pain. Denies any visual changes or speech difficulty. Reports that she has been feeling intermittently lightheaded. Denies dizziness. Denies feeling lightheaded at time of evaluation. Asks if we can check for COVID. Ask if she can have something to eat because she thinks her symptoms are due to not eating this morning yet. [facility] Medical History Wears glasses Post-menopausal Walker as ambulation aid Ambulates with cane Arthritis High cholesterol Injury of head and neck Non-smoker Shortness of breath on exertion History of edema History of echocardiogram History of stress test Hyperlipidemia Hypertension Home Medications ???Medication ???Instructions ???Recorded ???Last Taken ???Type lovastatin 40 mg tablet 40 mg PO DAILY Cholesterol 0 12/22/23 21:40 History cholecalciferol (vitamin D3) 50 50 mcg PO DAILY health maintenance 06/23/22 12/23/23 09:30 History mcg (2,000 unit) capsule acetaminophen 500 mg tablet 1,000 mg (2 x 500 mg) PO Q8 pain 0 12/23/23 12/23/23 09:30 Rx #0 tabs famotidine 20 mg tablet 20 mg PO DAILY Acid #0 tabs 12/23/23 09:30 Rx acetaminophen 500 mg tablet 1,000 mg (2 x 500 mg) PO Q6 #0 tab s 01/02/24 Unknown Rx aspirin 81 mg chewable tablet 81 mg PO BIDCM 14 days #0 tabs Unknown Rx losartan 100 mg tablet 100 mg PO DAILY 30 days #30 tabs 0 01/02/24 Unknown Rx melatonin 10 mg sublingual tablet 10 mg PO QHS #0 tabs 01/02/24 Unk nown Rx meloxicam 7.5 mg tablet 7.5 mg PO BIDCM 30 days #60 tabs 0 01/02/24 Unknown Rx tramadol 50 mg tablet 50 mg PO Q6H PRN PRN Pain Score Unknown Rx 1-10 7 days #28 tabs gabapentin 300 mg capsule 300 mg PO TID PRN pain 5 days #15 08/10/24 Unknown Rx caps oxycodone 5 mg tablet 5 mg PO Q6H PRN pain 5 days #20 Unknown Rx tabs cephalexin 500 mg capsule 500 mg PO Q12 #14 CAPSULES 5 Unknown Rx Allergy/AdvReac Type Severity Reaction Status Date / Time No Known Allergies Allergy Verified 07/07/25 05:34 Family History no significant family his Surgical History Status post total left knee [...] Yes additional social history: ROS ROS ED ROS Narrative see HPI EXAM Physical Exam Narrative Exam Narrative: Vital signs: Reviewed General: Alert and orientedx3. No acute distress HEENT: Head is normocephalic and atraumatic, sinuses nontender, pupils equal round and reactive. Nares are patent. Oropharynx and throat exams normal. Neck: Supple without lymphadenopathy nontender Cardiovascular: Regular rate and rhythm, no murmurs. No rubs or gallops. Normal S1 and S2 Respiratory: Clear to auscultation bilaterally. No wheezes, rales, rhonchi Abdominal: Soft and nontender. Normal bowel sounds. No guarding or rebound. Nonsurgical abdomen Extremities: No tenderness. No bruising. Normal range of motion. Normal sensation. Skin: No rash or redness. Neurological: Cranial nerves II through XII are grossly intact. Normal strength and sensation. Normal cerebellar function The rest of the physical exam is unremarkable Const Vital Signs: 07/07/25 05:34 07/07/25 05:34 07/07/25 05:39 Temperature 98.7 F 98.2 F Temperature Source Oral Oral Pulse Rate 75 72 Respiratory Rate 18 18 Respiratory Effort N (more content not included)... Normal [facility] Eosinophil percentageOrdered By: Sophia Quijano on 07-07-2025 Eosinophils/100 WBC (Bld) 1.6 % 0-5 [facility] Erythrocyte distribution wid th ratioOrdered By: Sophia Quijano on 07-07-2025 Erythrocyte distribution width (RBC) [Ratio] 13.5 % 11.6-14.6 [facility] Erythrocyte distribution wid th standard deviationOrdered By: Sophia Quijano on 07-07-2025 Erythrocyte distribution width (RBC) [Ratio] 43.8 fl 35.1-43.9 [facility] Glomerular filtration rate ( GFR) estimation/1.73 sq m using serum, plasma, or whole bOrdered By: Sophia Quijano on 07-07-2025 GFR/1.73 sq M.predicted among non-blacks MDRD (S/P/Bld) [Vol rate/Area] 74 mL/min/{1.73_m2} >60 [facility] Comment on above: mL/min/1.73m2 CKD-EP I Creatinine Equation (2020) Hematocrit Auto (Bld) [Volum e fraction]Ordered By: Sophia Quijano on 07-07-2025 Hematocrit (Bld) [Volume fraction] 35.0 % Low 37-47 [facility] Hemoglobin measurementOrdere d By: Sophia Quijano on 07-07-2025 Hemoglobin (Bld) [Mass/Vol] 12.1 g/dL 12.0-15.0 [facility] Immature granulocytes/100 WB C Auto (Bld)Ordered By: Sophia Quijano on 07-07-2025 Immature granulocytes/100 WBC (Bld) 0.200 % 0.0-0.9 [facility] Comment on above: IG% - Immature Granu locytes (promyelocytes, myelocytes and metamyelocytes) > 1% indicates that a LEFT SHIFT is Present. Influenza virus A and B and SARS-CoV-2 (COVID-19) and Respiratory syncytial virus RNAOrdered By: Sophia Quijano on 07-07-2025 SARS-CoV-2 (COVID-19) RNA DEDRICK+probe Ql (Unsp spec) SARS-CoV-2 (COVID 19 PCR) Abnormal [facility] Ketones Test strip Ql (U)Ord ered By: Sophia Quijano on 07-07-2025 Ketones Ql (U) Negative Negative [facility] M100.678on 07-07-2025 M100.678 Copy of report sent to Infection Control Printer [id number] 07/07/25 0653 [facility]. FLUABV+SARS-CoV-2+RSV Pnl Resp DEDRICK+probe FLUABV+SARS-CoV-2+RSV Pnl Resp DEDRICK+probe SARS-CoV-2 (COVID 19) A Positive A INFLUENZA A Negative INFLUENZA B Negative RSV PCR Negative SARS-CoV-2 (COVID 19 PCR) Normal [facility] Comment on above: Performed By: #### M 100.678, [id number] #### [facility] [address] [place] [address]. [place], [address] MCV (mean corpuscular volume ) determinationOrdered By: Sophia Quijano on 07-07-2025 MCV (RBC) [Entitic vol] 88.2 fL 81-99 [facility] Mean corpuscular hemoglobin (MCH) determinationOrdered By: Sophia Quijano on 07-07-2025 MCH (RBC) [Entitic mass] 30.5 pg 27.0-32.0 [facility] Mean corpuscular hemoglobin concentration (MCHC) determinationOrdered By: Sophia Quijano on 07-07-2025 MCHC (RBC) [Mass/Vol] 34.6 g/dL 32-36 [facility] Mean platelet volume determi nationOrdered By: Sophianguyễn Quijano on 07-07-2025 Platelet mean volume (Bld) [Entitic vol] 10.8 fL 6.2-12.0 [facility] Microscopic analysis of urin e for red blood cells (RBC)Ordered By: Sophia Quijano on 07-07-2025 Microscopic analysis of urine for red blood cells (RBC) 0-5 SEEN /hpf 0-5 [facility] Monocyte percentageOrdered B y: Sophia Quijano on 07-07-2025 Monocytes/100 WBC (Bld) 10.1 % High 0-10 [facility] Mucus LM Ql (Urine sed)Order ed By: Sophia Quijano on 07-07-2025 Mucus Ql (Urine sed) 0 SEEN /hpf [facility] Neutrophil percentageOrdered By: Sophia Quijano on 07-07-2025 Neutrophils/100 WBC (Bld) 70.1 % High 47-70 [facility] Nitrite Test strip Ql (U)Ord ered By: Sophia Quijano on 07-07-2025 Nitrite Ql (U) Positive High Negative [facility] Nucleated red blood cell per centageOrdered By: Sophia Quijano on 07-07-2025 Nucleated RBC/100 WBC (Bld) [Ratio] 0 % 0-5 [facility] Platelet countOrdered By: Rock Quijano on 07-07-2025 Platelets (Bld) [#/Vol] 130 10*3/uL Low 150-450 [facility] Potassium measurement (mass/ volume)Ordered By: Sophia Quijano on 07-07-2025 Potassium (Unsp spec) [Mass/Vol] 4.1 mmol/L 3.3-5.1 [facility] Protein Test strip Ql (U)Ord ered By: Sophia Quijano on 07-07-2025 Protein Ql (U) 15 mg/dl High Negative [facility] RBC Auto (Bld) [#/Vol]Ordere d By: Sophia Quijano on 07-07-2025 RBC (Bld) [#/Vol] 3.97 10*6/uL Low 4.2-5.4 [facility] Serum creatinine measurement (mass/volume)Ordered By: Sophia Quijano on 07-07-2025 Creatinine [Mass/Vol] 0.79 mg/dL 0.70-1.20 [facility] Serum glucose measurement (m ass/volume)Ordered By: Sophia Quijano on 07-07-2025 Glucose [Mass/Vol] 118 mg/dL High 70-99 [facility] Serum or plasma calcium josie urement (mass/volume)Ordered By: Sophia Quijano on 07-07-2025 Calcium [Mass/Vol] 9.5 mg/dL 7.6-11.0 [facility] Serum or plasma urea nitroge n measurement (mass/volume)Ordered By: Sophia Quijano on 07-07-2025 Urea nitrogen [Mass/Vol] 14 mg/dL 4-19 [facility] Sodium levelOrdered By: Fredis Quijano on 07-07-2025 Sodium [Moles/Vol] 137 mmol/L 133-145 [facility] Squamous epithelial cells de tection in urine sediment by light microscopyOrdered By: Sophia Quijano on 07-07-2025 Epithelial cells.squamous LM Ql (Urine sed) 0-5 SEEN /hpf 5-10 [facility] Urinalysis, Completeon 07-07 BACTERIA 3+ /hpf Normal None Seen [facility] Comment on above: Order Comment: CLEAN CATCH Performed By: #### M 100.678, [id number] #### [facility] [address] [place], [address] EPI,SQUAMOUS 0-5 SEEN Normal 5-10 [facility] Comment on above: Order Comment: CLEAN CATCH Performed By: #### M 100.678, [id number] #### [facility] [address] [place], [address] RBC 0-5 SEEN Normal 0-5 [facility] Comment on above: Order Comment: CLEAN CATCH Performed By: #### M 100.678, [id number] #### [facility] [address] [place], [address] WBC 0-5 SEEN Normal 0-5 [facility] Comment on above: Order Comment: CLEAN CATCH Performed By: #### M 100.678, [id number] #### [facility] [address] [place], [address] Mucus Ql (Urine sed) 0 SEEN Normal [facility] Comment on above: Order Comment: CLEAN CATCH Performed By: #### M 100.678, [id number] #### [facility] [address] [place], [address] Urine clarityOrdered By: Deedee Quijano on 07-07-2025 Clarity (U) Clear Clear [facility] Urine color determinationOrd ered By: Sophia Quijano on 07-07-2025 Color (U) Yellow Yellow [facility] Urine glucose detectionOrder ed By: Sophia Quijano on 07-07-2025 Glucose Ql (U) Normal mg/dl Normal [facility] Urine leukocyte esterase det ection by dipstickOrdered By: Sophia Quijano on 07-07-2025 Leukocyte esterase Test strip Ql (U) 100 /ul High Negative [facility] Urine pHOrdered By: Sophia beach on 07-07-2025 pH (U) 6.0 [pH] 5.0 - 8.0 [facility] Urine sediment bacteria coun t by microscopy (number/high power field)Ordered By: Sophia Quijano on 07-07-2025 Bacteria LM.HPF (Urine sed) [#/Area] 3 /[HPF] None Seen [facility] Urine specific gravity measu rementOrdered By: Sophia Quijano on 07-07-2025 Specific gravity (U) [Rel density] 1.015 1.002-1.030 [facility] Urine urobilinogen measureme ntOrdered By: Sophia Quijano on 07-07-2025 Urobilinogen Ql (U) Normal mg/dl Normal [facility] White blood cell (WBC) count Ordered By: Sophia Quijano on 07-07-2025 WBC (Bld) [#/Vol] 5.7 10*3/uL 4.4-11.0 [facility] White blood cell countOrdere d By: Sophia Quijano on 07-07-2025 White blood cell count 0-5 SEEN /hpf 0-5 [facility] Absolute lymphocyte countOrd ered By: Alex Sommers on 07-04-2025 Lymphocytes Auto (Unsp spec) [#/Vol] 1.74 10*3/uL 0.83-4.51 [facility] Absolute neutrophil countOrd ered By: Alex Sommers on 07-04-2025 Neutrophils (Bld) [#/Vol] 2.4 10*3/uL 2.0-7.7 [facility] Anion gap in Serum or Plasma Ordered By: Alex Sommers on 07-04-2025 Anion gap [Moles/Vol] 12 mmol/L 5-15 [facility] Automated lymphocyte count a s percentage of total leukocytesOrdered By: Alex Sommers on 07-04-2025 Lymphocytes/100 WBC Auto (Unsp spec) 37.2 % 19- [facility] BUN/creatinine ratioOrdered By: Alex Sommers on 07-04-2025 Urea nitrogen/Creatinine [Mass ratio] 18.1 mg/mg 10-20 [facility] Basophil percentageOrdered B y: Alex Sommers on 07-04-2025 Basophils/100 WBC (Bld) 0.6 % 0-1 [facility] Bilirubin Test strip Ql (U)O rdered By: Alex Sommers on 07-04-2025 Bilirubin Ql (U) Negative Negative [facility] Bilirubin, totalOrdered By: Alex Sommers on 07-04-2025 Bilirubin [Mass/Vol] 0.42 mg/dL 0.00-1.30 [facility] CBC W/Diff, Automatedon 06-08 Absolute Lymph 1.74 X10 3/uL Normal 0.83-4.51 [facility] Comment on above: Order Comment: CLEAN CATCH Performed By: #### M 100.678, [id number] #### [facility] [address] [place], [place], [id number] Absolute Neut 2.4 X10 3/uL Normal 2.0-7.7 [facility] Comment on above: Order Comment: CLEAN CATCH Performed By: #### M 100.678, [id number] #### [facility] [address] [place], [address] Basophils/100 WBC (Bld) 0.6 % Normal 0-1 [facility] Comment on above: Order Comment: CLEAN CATCH Performed By: #### M 100.678, [id number] #### [facility] [address] [place], [address] Eosinophils/100 WBC (Bld) 3.2 % Normal 0-5 [facility] Comment on above: Order Comment: CLEAN CATCH Performed By: #### M 100.678, L400.0001 #### [facility] [address] [place], [address] Erythrocyte distribution width (RBC) [Ratio] 13.8 % Normal 11.6-14.6 [facility] Comment on above: Order Comment: CLEAN CATCH Performed By: #### M 100.678, L400.0001 #### [facility] [address] [place], [address] Hematocrit (Bld) [Volume fraction] 36.4 % Low 37-47 [facility] Comment on above: Order Comment: CLEAN CATCH Performed By: #### M 100.678, L400.0001 #### [facility] [address] [place], [address] Hemoglobin (Bld) [Mass/Vol] 12.2 g/dL Normal 12.0-15.0 [facility] Comment on above: Order Comment: CLEAN CATCH Performed By: #### M 100.678, L400.0001 #### [facility] [address] [place], [address] IG% 0.400 Normal 0.0-0.9 [facility] Comment on above: Order Comment: CLEAN CATCH Result Comment: IG% - Immature Granulocytes (promyelocytes, myelocytes and metamyelocytes) > 1% indicates that a LEFT SHIFT is Present. Performed By: #### M 100.678, L400.0001 #### [facility] [address] [place], [address] Lymphocytes/100 WBC (Bld) 37.2 % Normal 19-41 [facility] Comment on above: Order Comment: CLEAN CATCH Performed By: #### M 100.678, L400.0001 #### [facility] [address] [place], [address] MCH (RBC) [Entitic mass] 30.3 pg Normal 27.0-32.0 [facility] Comment on above: Order Comment: CLEAN CATCH Performed By: #### M 100.678, L400.0001 #### [facility] [address] [place], [address] MCHC (RBC) [Mass/Vol] 33.5 g/dL Normal 32-36 [facility] Comment on above: Order Comment: CLEAN CATCH Performed By: #### M 100.678, L400.0001 #### [facility] [address] [place], [address] MCV (RBC) [Entitic vol] 90.3 fL Normal 81-99 [facility] Comment on above: Order Comment: CLEAN CATCH Performed By: #### M 100.678, L400.0001 #### [facility] [address] [place], [address] Monocytes/100 WBC (Bld) 7.9 % Normal 0-10 [facility] Comment on above: Order Comment: CLEAN CATCH Performed By: #### M 100.678, L400.0001 #### [facility] [address] [place], [address] Neutrophils/100 WBC (Bld) 50.7 % Normal 47-70 [facility] Comment on above: Order Comment: CLEAN CATCH Performed By: #### M 100.678, L400.0001 #### [facility] [address] [place], [address] Nucleated RBC (Bld) [#/Vol] 0 10*3/uL Normal 0-5 [facility] Comment on above: Order Comment: CLEAN CATCH Performed By: #### M 100.678, L400.0001 #### [facility] [address] [place], [address] Platelet mean volume (Bld) [Entitic vol] 11.0 fL Normal 6.2-12.0 [facility] Comment on above: Order Comment: CLEAN CATCH Performed By: #### M 100.678, L400.0001 #### [facility] [address] [place], [address] Platelets (Bld) [#/Vol] 159 10*3/uL Normal 150-450 [facility] Comment on above: Order Comment: CLEAN CATCH Performed By: #### M 100.678, L400.0001 #### [facility] [address] [place], [address] RBC (Bld) [#/Vol] 4.03 10*6/uL Low 4.2-5.4 [facility] Comment on above: Order Comment: CLEAN CATCH Performed By: #### M 100.678, L400.0001 #### [facility] [address] [place], [address] RDW SD 45.1 fl High 35.1-43.9 [facility] Comment on above: Order Comment: CLEAN CATCH Performed By: #### M 100.678, L400.0001 #### [facility] [address] [place], [address] WBC (Bld) [#/Vol] 4.7 10*3/uL Normal 4.4-11.0 [facility] Comment on above: Order Comment: CLEAN CATCH Performed By: #### M 100.678, L400.0001 #### [facility] [address] [place], [address] Calculated very low density lipoprotein (VLDL) cholesterol measurementOrdered By: Alex Sommers on 07-04-2025 Calculated very low density lipoprotein (VLDL) cholesterol measurement 44 mg/dL High 5-40 [facility] Carbon dioxide, total [Moles /volume] in Central venous bloodOrdered By: Alex Sommers on 07-04-2025 CO2 [Moles/Vol] 24.6 mmol/L 21.0-32.0 [facility] Chloride assayOrdered By: Ina Sommers on 07-04-2025 Chloride [Moles/Vol] 104 mmol/L 98-108 [facility] Comprehensive Metabolic Prof ilon 07-04-2025 Albumin [Mass/Vol] 4.2 g/dL Normal 3.4-4.8 [facility] Comment on above: Order Comment: CLEAN CATCH Performed By: #### M 100.678, L400.0001 #### [facility] [address] [place], [address] Albumin/Globulin [Mass ratio] 1.8 {ratio} Normal 0.9-2.4 [facility] Comment on above: Order Comment: CLEAN CATCH Performed By: #### M 100.678, L400.0001 #### [facility] [address] [place], [address] ALK PHOS 89 U/L Normal 35-104 [facility] Comment on above: Order Comment: CLEAN CATCH Performed By: #### M 100.678, L400.0001 #### [facility] [address] [place], [address] ALT [Catalytic activity/Vol] 18 U/L Normal <=34 [facility] Comment on above: Order Comment: CLEAN CATCH Performed By: #### M 100.678, L400.0001 #### [facility] [address] [place], [address] AST [Catalytic activity/Vol] 26 U/L Normal <=31 [facility] Comment on above: Order Comment: CLEAN CATCH Performed By: #### M 100.678, L400.0001 #### [facility] [address] [place], [address] Bilirubin [Mass/Vol] 0.42 mg/dL Normal 0.00-1.30 [facility] Comment on above: Order Comment: CLEAN CATCH Performed By: #### M 100.678, L400.0001 #### [facility] [address] [place], [address] BUN/CRE 18.1 RATIO Normal 10-20 [facility] Comment on above: Order Comment: CLEAN CATCH Performed By: #### M 100.678, L400.0001 #### [facility] [address] [place], [address] Calcium [Mass/Vol] 9.5 mg/dL Normal 7.6-11.0 [facility] Comment on above: Order Comment: CLEAN CATCH Performed By: #### M 100.678, L400.0001 #### [facility] [address] [place], [address] Chloride [Moles/Vol] 104 mmol/L Normal 98-108 [facility] Comment on above: Order Comment: CLEAN CATCH Performed By: #### M 100.678, L400.0001 #### [facility] [address] [place], [address] CO2 [Moles/Vol] 24.6 mmol/L Normal 21.0-32.0 [facility] Comment on above: Order Comment: CLEAN CATCH Performed By: #### M 100.678, L400.0001 #### [facility] [address] [place], [address] Creatinine [Mass/Vol] 1.00 mg/dL Normal 0.70-1.20 [facility] Comment on above: Order Comment: CLEAN CATCH Performed By: #### M 100.678, L400.0001 #### [facility] [address] [place], [address] GAP 12 Normal 5-15 [facility] Comment on above: Order Comment: CLEAN CATCH Performed By: #### M 100.678, L400.0001 #### [facility] [address] [place], [address] GFR/1.73 sq M.predicted among non-blacks MDRD (S/P/Bld) [Vol rate/Area] 56 mL/min/{1.73_m2} Low >60 [facility] Comment on above: Order Comment: CLEAN CATCH Result Comment: mL/m in/1.73m2 CKD-EPI Creatinine Equation (2020) Performed By: #### M 100.678, L400.0001 #### [facility] [address] [place], [address] Globulin (S) [Mass/Vol] 2.3 g/dL Normal 2.2-4.2 [facility] Comment on above: Order Comment: CLEAN CATCH Performed By: #### M 100.678, L400.0001 #### [facility] [address] [place], [address] Glucose [Mass/Vol] 103 mg/dL High 70-99 [facility] Comment on above: Order Comment: CLEAN CATCH Performed By: #### M 100.678, L400.0001 #### [facility] [address] [place], [address] Potassium [Moles/Vol] 4.1 mmol/L Normal 3.3-5.1 [facility] Comment on above: Order Comment: CLEAN CATCH Performed By: #### M 100.678, L400.0001 #### [facility] [address] [place], [address] Sodium [Moles/Vol] 141 mmol/L Normal 133-145 [facility] Comment on above: Order Comment: CLEAN CATCH Performed By: #### M 100.678, L400.0001 #### [facility] [address] [place], [address] T PROT 6.6 g/dL Normal 5.9-8.4 [facility] Comment on above: Order Comment: CLEAN CATCH Performed By: #### M 100.678, L400.0001 #### [facility] [address] [place], [address] Urea nitrogen [Mass/Vol] 18 mg/dL Normal 4-19 [facility] Comment on above: Order Comment: CLEAN CATCH Performed By: #### M 100.678, L400.0001 #### [facility] [address] [place], [address] Eosinophil percentageOrdered By: Alex Sommers on 07-04-2025 Eosinophils/100 WBC (Bld) 3.2 % 0-5 [facility] Erythrocyte distribution wid th ratioOrdered By: Alex Sommers on 07-04-2025 Erythrocyte distribution width (RBC) [Ratio] 13.8 % 11.6-14.6 [facility] Erythrocyte distribution wid th standard deviationOrdered By: Alex Sommers on 07-04-2025 Erythrocyte distribution width (RBC) [Ratio] 45.1 fl High 35.1-43.9 [facility] Glomerular filtration rate ( GFR) estimation/1.73 sq m using serum, plasma, or whole bOrdered By: Alex Sommers on 07-04-2025 GFR/1.73 sq M.predicted among non-blacks MDRD (S/P/Bld) [Vol rate/Area] 56 mL/min/{1.73_m2} Low >60 [facility] Comment on above: mL/min/1.73m2 CKD-EP I Creatinine Equation (2020) Hematocrit Auto (Bld) [Volum e fraction]Ordered By: Alex Sommers on 07-04-2025 Hematocrit (Bld) [Volume fraction] 36.4 % Low 37-47 [facility] Hemoglobin measurementOrdere d By: Alex Sommers on 07-04-2025 Hemoglobin (Bld) [Mass/Vol] 12.2 g/dL 12.0-15.0 [facility] Immature granulocytes/100 WB C Auto (Bld)Ordered By: Alex Sommers on 07-04-2025 Immature granulocytes/100 WBC (Bld) 0.400 % 0.0-0.9 [facility] Comment on above: IG% - Immature Granu locytes (promyelocytes, myelocytes and metamyelocytes) > 1% indicates that a LEFT SHIFT is Present. Ketones Test strip Ql (U)Ord ered By: Alex Sommers on 07-04-2025 Ketones Ql (U) 5 mg/dl High Negative [facility] LDL calc ser/plasOrdered By: Alex Sommers on 07-04-2025 Cholesterol in LDL [Mass/Vol] 58 mg/dL [facility] Comment on above: Ctjeizwtdw=627-397 m g/dL & Higher Yycg=225 mg/dL or greaterFriedwald Equation for LDL-C Laboratory - Chemistry and C hemistry - challengeOrdered By: Alex Sommers on 07-04-2025 AST [Catalytic activity/Vol] 26 U/L <32 [facility] Lipid Profileon 07-04-2025 CHOL:HDL 2.41 Normal [facility] Comment on above: Order Comment: CLEAN CATCH Performed By: #### M 100.678, L400.0001 #### [facility] [address] [place], [place], [address] Cholesterol [Mass/Vol] 174 mg/dL Normal <=200 [facility] Comment on above: Order Comment: CLEAN CATCH Result Comment: Chol esterol level, Desirable <200 mg/dL Borderline high cholesterol 200-239 mg/dL High cholesterol >=240 mg/dL Recommendations of the NCEP Adult Treatment Panel for the following risk-cutoff thresholds for the [place] population. Performed By: #### M 100.678, L400.0001 #### [facility] [address] [place], [address] Cholesterol in HDL [Mass/Vol] 72 mg/dL Normal [facility] Comment on above: Order Comment: CLEAN CATCH Result Comment: Hallie onal Cholesterol Education Program (NCEP) guidelines: <40 mg/dL: Low HDL-cholesterol (major risk factor for CHD) >= 60 mg/dL: High HDL-cholesterol (negative risk factor for CHD) HDL-cholesterol is affected by a number of factors, e.g. smoking, exercise, hormones, sex and age. Performed By: #### M 100.678, L400.0001 #### [facility] [address] [place], [address] Cholesterol in LDL [Mass/Vol] 58 mg/dL Normal [facility] Comment on above: Order Comment: CLEAN CATCH Result Comment: Bord dnoozt=991-614 mg/dL Higher Olee=375 mg/dL or greater Friedwald Equation for LDL-C Performed By: #### M 100.678, L400.0001 #### [facility] [address] [place], [address] Cholesterol in VLDL [Mass/Vol] 44 mg/dL High 5-40 [facility] Comment on above: Order Comment: CLEAN CATCH Performed By: #### M 100.678, L400.0001 #### [facility] [address] [place], [address] Triglyceride [Mass/Vol] 218 mg/dL High [facility] Comment on above: Order Comment: CLEAN CATCH Result Comment: The drugs N-Acetylcysteine and Metamizole may falsely depress this assay. Normal range: <150 mg/dL Borderline High: 150-199 mg/dL High: 200-499 mg/dL Very High: >500 mg/dL Performed By: #### M 100.678, L400.0001 #### [facility] [address] [place], [address] MCV (mean corpuscular volume ) determinationOrdered By: Alex Sommers on 07-04-2025 MCV (RBC) [Entitic vol] 90.3 fL 81-99 [facility] Mean corpuscular hemoglobin (MCH) determinationOrdered By: Alex Sommers on 07-04-2025 MCH (RBC) [Entitic mass] 30.3 pg 27.0-32.0 [facility] Mean corpuscular hemoglobin concentration (MCHC) determinationOrdered By: Alex Sommers on 07-04-2025 MCHC (RBC) [Mass/Vol] 33.5 g/dL 32-36 [facility] Mean platelet volume determi nationOrdered By: Alex Sommers on 07-04-2025 Platelet mean volume (Bld) [Entitic vol] 11.0 fL 6.2-12.0 [facility] Microscopic analysis of urin e for red blood cells (RBC)Ordered By: Alex Sommers on 07-04-2025 Microscopic analysis of urine for red blood cells (RBC) 0-5 SEEN /hpf 0-5 [facility] Monocyte percentageOrdered B y: Alex oSmmers on 07-04-2025 Monocytes/100 WBC (Bld) 7.9 % 0-10 [facility] Mucus LM Ql (Urine sed)Order ed By: Alex Sommers on 07-04-2025 Mucus Ql (Urine sed) 0 SEEN /hpf [facility] Neutrophil percentageOrdered By: Alex Sommers on 07-04-2025 Neutrophils/100 WBC (Bld) 50.7 % 47-70 [facility] Nitrite Test strip Ql (U)Ord ered By: Alex Sommers on 07-04-2025 Nitrite Ql (U) Negative Negative [facility] Nucleated red blood cell per centageOrdered By: Alex Sommers on 07-04-2025 Nucleated RBC/100 WBC (Bld) [Ratio] 0 % 0-5 [facility] Platelet countOrdered By: Ina Sommers on 07-04-2025 Platelets (Bld) [#/Vol] 159 10*3/uL 150-450 [facility] Potassium measurement (mass/ volume)Ordered By: Alex Sommers on 07-04-2025 Potassium (Unsp spec) [Mass/Vol] 4.1 mmol/L 3.3-5.1 [facility] Protein Test strip Ql (U)Ord ered By: Alex Sommers on 07-04-2025 Protein Ql (U) 30 mg/dl High Negative [facility] RBC Auto (Bld) [#/Vol]Ordere d By: Alex Sommers on 07-04-2025 RBC (Bld) [#/Vol] 4.03 10*6/uL Low 4.2-5.4 [facility] Screening total cholesterol/ high density lipoprotein (HDL) cholesterol ratioOrdered By: Alex Sommers on 07-04-2025 Cholesterol.total/Donna sterol in HDL [Mass ratio] 2.41 {ratio} [facility] Serum creatinine measurement (mass/volume)Ordered By: Alex Sommers on 07-04-2025 Creatinine [Mass/Vol] 1.00 mg/dL 0.70-1.20 [facility] Serum globulin measurementOr dered By: Alex Sommers on 07-04-2025 Globulin (S) [Mass/Vol] 2.3 g/dL 2.2-4.2 [facility] Serum glucose measurement (m ass/volume)Ordered By: Alex Sommers on 07-04-2025 Glucose [Mass/Vol] 103 mg/dL High 70-99 [facility] Serum or plasma alanine redmond otransferase (ALT) measurementOrdered By: Alex Sommers on 07-04-2025 ALT [Catalytic activity/Vol] 18 U/L <35 [facility] Serum or plasma albumin josie urement (mass/volume)Ordered By: Alex Sommers on 07-04-2025 Albumin [Mass/Vol] 4.2 g/dL 3.4-4.8 [facility] Serum or plasma albumin/glob ulin mass ratioOrdered By: Alex Sommers on 07-04-2025 Albumin/Globulin [Mass ratio] 1.8 {ratio} 0.9-2.4 [facility] Serum or plasma alkaline lucita sphatase measurementOrdered By: Alex Sommers on 07-04-2025 ALP [Catalytic activity/Vol] 89 U/L 35-104 [facility] Serum or plasma calcium josie urement (mass/volume)Ordered By: Alex Sommers on 07-04-2025 Calcium [Mass/Vol] 9.5 mg/dL 7.6-11.0 [facility] Serum or plasma cholesterol in HDL measurement (mass/volume)Ordered By: Alex Sommers on 07-04-2025 Cholesterol in HDL [Mass/Vol] 72 mg/dL >40 [facility] Comment on above: National Cholesterol Education Program (NCEP) guidelines:<40 mg/dL: Low HDL-cholesterol (major risk factor for CHD)>= 60 mg/dL: High HDL-cholesterol (negative risk factor for CHD)HDL-cholesterol is affected by a number of factors, e.g. smoking, exercise, hormones, sex and age. Serum or plasma cholesterol measurement (mass/volume)Ordered By: Alex Sommers on 07-04-2025 Cholesterol [Mass/Vol] 174 mg/dL <201 [facility] Comment on above: Cholesterol level, D esirable <200 mg/dLBorderline high cholesterol 200-239 mg/dLHigh cholesterol >=240 mg/dLRecommendations of the NCEP Adult Treatment Panel for the following risk-cutoff thresholds for the [place] population. Serum or plasma urea nitroge n measurement (mass/volume)Ordered By: Alex Sommers on 07-04-2025 Urea nitrogen [Mass/Vol] 18 mg/dL 4-19 [facility] Sodium levelOrdered By: Alex Sommers on 07-04-2025 Sodium [Moles/Vol] 141 mmol/L 133-145 [facility] Squamous epithelial cells de tection in urine sediment by light microscopyOrdered By: Alex Sommers on 07-04-2025 Epithelial cells.squamous LM Ql (Urine sed) 0 SEEN /hpf 5-10 [facility] Total proteinOrdered By: Andre Sommers on 07-04-2025 Protein [Mass/Vol] 6.6 g/dL 5.9-8.4 [facility] Triglycerides measurementOrd ered By: Alex Sommers on 07-04-2025 Triglyceride [Mass/Vol] 218 mg/dL High <199 [facility] Comment on above: The drugs N-Acetylcy steine and Metamizole may falsely depress this assay. Normal range: <150 mg/dLBorderline High: 150-199 mg/dLHigh: 200-499 mg/dLVery High: >500 mg/dL Urinalysis, Completeon 07-04 BACTERIA 4+ /hpf Normal None Seen [facility] Comment on above: Order Comment: CLEAN CATCH Performed By: #### L 400.0001, L506.1001 #### [facility] [address] [place], [address] RBC 0-5 SEEN Normal 0-5 [facility] Comment on above: Order Comment: CLEAN CATCH Performed By: #### L 400.0001, L506.1001 #### [facility] [address] [place], [address] WBC 5-10 SEEN Normal 0-5 [facility] Comment on above: Order Comment: CLEAN CATCH Performed By: #### L 400.0001, L506.1001 #### [facility] [address] [place], [address] EPI,SQUAMOUS 0 SEEN Normal 5-10 [facility] Comment on above: Order Comment: CLEAN CATCH Performed By: #### L 400.0001, L506.1001 #### [facility] [address] [place], [address] Mucus Ql (Urine sed) 0 SEEN Normal [facility] Comment on above: Order Comment: CLEAN CATCH Performed By: #### L 400.0001, L506.1001 #### [facility] [address] [place], [address] Urine clarityOrdered By: Andre Sommers on 07-04-2025 Clarity (U) Cloudy Clear [facility] Urine color determinationOrd ered By: Alex Sommers on 07-04-2025 Color (U) Yellow Yellow [facility] Urine glucose detectionOrder ed By: Alex Sommers on 07-04-2025 Glucose Ql (U) Normal mg/dl Normal [facility] Urine leukocyte esterase det ection by dipstickOrdered By: Alex Sommers on 07-04-2025 Leukocyte esterase Test strip Ql (U) 25 /ul High Negative [facility] Urine pHOrdered By: Alex ferrari on 07-04-2025 pH (U) 5.0 [pH] 5.0 - 8.0 [facility] Urine sediment bacteria coun t by microscopy (number/high power field)Ordered By: Alex Sommers on 07-04-2025 Bacteria LM.HPF (Urine sed) [#/Area] 4 /[HPF] None Seen [facility] Urine specific gravity measu rementOrdered By: Alex Sommers on 07-04-2025 Specific gravity (U) [Rel density] 1.020 1.002-1.030 [facility] Urine urobilinogen measureme ntOrdered By: Alex Sommers on 07-04-2025 Urobilinogen Ql (U) Normal mg/dl Normal [facility] Vitamin D,25 Hydroxyon 07-04 Vitamin D 25-OH 28.6 ng/mL Low 30-100 [facility] Comment on above: Order Comment: Order Date: 06/28/25 Order Info: [id number] - CMP Order Info: [id number] - LIPID Result Comment: Cindi min D Status Deficiency: <20 ng/mL (50nmol/L) Insufficiency: 20-30 ng/mL (50-75 nmol/L) Sufficiency: 30-100 ng/mL (75-250 nmol/L) Toxicity: >100 ng/mL (>250 nmol/L) Performed By: #### L 400.0001, L506.1001 #### [facility] [address] [facility] [place], [address] White blood cell (WBC) count Ordered By: Alex Sommers on 07-04-2025 WBC (Bld) [#/Vol] 4.7 10*3/uL 4.4-11.0 [facility] White blood cell countOrdere d By: Alex Sommers on 07-04-2025 White blood cell count 5-10 SEEN /hpf 0-5 [facility] Breast Limited Unilateralon 06-13-2025 Breast Limited Unilateral [facility] Imaging Services [address] [place] [address] Breast Limited Unilateral MR#: [id number] Acct: [id number] Name: FRED MON Rep #: [id number] : 1940 F 84 From: Fady crane MD PCP: Dr. Alex Sommers MD Status: REG CLI Study: Breast Limited Unilateral Date of Exam: Exam# [id number] Ordering Dr: Alex Sommers MD PROCEDURE: BREAST LIMITED UNILATERAL 06/13/2025 REASON [...] annual follow-up in 1 Year Reading Location: [id number] CC: Dr. Alex Sommers MD Sales Representative [employer]: Signed Normal [facility] Breast imaging reportOrdered By: Fady Ryder on 06-13-2025 Study report [facility] Imaging Services [address] [place], [place] [address] DIAG MAMM W/CAD, UNILAT MR#: [id number] Acct: [id number] Name: FRED MON Rep #: [id number] : 1940 F 84 From: Ric Ryder MD PCP: Dr. Alex Sommers MD Status: ARLENE G CLI Study:DIAG MAMM W/CAD, UNILAT Date of Exam: 06/13/25 Exam# [id number] Ordering Dr: Alex Sommers MD EXAM: DIAG MAMM W/CAD, UNILAT 06/13/2025 [...] be mailed to the patient. Reading Location: [id number] CC: Dr. Alex Sommers MD ~ Sales Representative [employer]: Signed [facility] DIAG MAMM W/CAD, UNILATon DIAG MAMM W/CAD, UNILAT [facility] Imaging Services [address] [place] [address] DIAG MAMM W/CAD, UNILAT MR#: [id number] Acct: [id number] Name: FRED MON Rep #: [id number] : 1940 F 84 From: Fady crane MD PCP: Dr. Alex Sommers MD Status: [facility] Study: DIAG MAMM W/CAD, UNILAT Date of Exam: 06/13/25 Exam# [id number] Ordering Dr: Alex Sommers MD EXAM: DIAG MAMM W/CAD, UNILAT 06/13/2025 [...] be mailed to the patient. Reading Location: [id number] CC: Dr. Alex Sommers MD Sales Representative [employer]: Signed Normal [facility] Breast imaging reportOrdered By: Sharon Vanessa on 06-10-2025 Study report [facility] Imaging Services [address] [place] [address] SCRN MAMM (CAD)W/CHRISTIANO BILAT MR#: [id number] Acct: [id number] Name: FRED MON Rep #: [id number] : 1940 F 84 From: Eduard Vanessa DO PCP: Dr. Alex Sommers MD Status: RE G CLI Study:SCRN MAMM (CAD)W/CHRISTIANO BILAT Date of Exa m: 06/10/25 Exam# [id number] Ordering Dr: Alex Sommers MD EXAM: SCRN MAMM (CAD)W/CHRISTIANO BILAT DATE: [...] be mailed to the patient. Reading Location: [id number] CC: Dr. Alex Sommers MD ~ Sales Representative [employer]: Signed [facility] SCRN MAMM (CAD)W/CHRISTIANO BILATo n 06-10-2025 SCRN MAMM (CAD)W/CHRISTIANO BILAT [facility] [facility] Imaging Services [address] [place], [place] [id number] SCRN MAMM (CAD)W/CHRISTIANO BILAT MR#: [id number] Acct: [id number] Name: FRED MON Rep #: [id number] : [id number] F [id number] From: Sharon Sage PCP: Dr. Alex Sommers MD Status: [facility] Study: SCRN MAMM (CAD)W/CHRISTIANO BILAT Date of Exam: 03/01 Exam# [id number] Ordering Dr: Alex Sommers MD EXAM: SCRN MAMM (CAD)W/CHRISTIANO BILAT DATE: [...] be mailed to the patient. Reading Location: [facility] CC: Dr. Alex Sommers MD Sales Representative [employer]: Signed Normal [facility] Anion gap in Serum or Plasma Ordered By: Alex Sommers on 02-27-2025 Anion gap [Moles/Vol] 12 mmol/L 5-15 [facility] BUN/creatinine ratioOrdered By: Alex Sommers on 02-27-2025 Urea nitrogen/Creatinine [Mass ratio] 21.3 mg/mg High 10-20 [facility] Bilirubin, totalOrdered By: Alex Sommers on 02-27-2025 Bilirubin [Mass/Vol] 0.43 mg/dL 0.00-1.30 [facility] CBC-Complete Blood Cnt No Di ffon 02-27-2025 Erythrocyte distribution width (RBC) [Ratio] 13.7 % Normal 11.6-14.6 [facility] Comment on above: Performed By: #### L 100.0500, L506.1001, L500.4050, L503.0106, L501.9520 #### [facility] [address] [place], [address] Hematocrit (Bld) [Volume fraction] 36.4 % Low 37-47 [facility] Comment on above: Performed By: #### L 100.0500, L506.1001, L500.4050, L503.0106, L501.9520 #### [facility] [address] [place], [address] Hemoglobin (Bld) [Mass/Vol] 12.1 g/dL Normal 12.0-15.0 [facility] Comment on above: Performed By: #### L 100.0500, L506.1001, L500.4050, L503.0106, L501.9520 #### [facility] [address] [place], [address] MCH (RBC) [Entitic mass] 30.3 pg Normal 27.0-32.0 [facility] Comment on above: Performed By: #### L 100.0500, L506.1001, L500.4050, L503.0106, L501.9520 #### [facility] [address] [place], [address] MCHC (RBC) [Mass/Vol] 33.2 g/dL Normal 32-36 [facility] Comment on above: Performed By: #### L 100.0500, L506.1001, L500.4050, L503.0106, L501.9520 #### [facility] [address] [place], [address] MCV (RBC) [Entitic vol] 91.0 fL Normal 81-99 [facility] Comment on above: Performed By: #### L 100.0500, L506.1001, L500.4050, L503.0106, L501.9520 #### [facility] [address] [place], [address] Platelet mean volume (Bld) [Entitic vol] 10.7 fL Normal 6.2-12.0 [facility] Comment on above: Performed By: #### L 100.0500, L506.1001, L500.4050, L503.0106, L501.9520 #### [facility] [address] [place], [address] Platelets (Bld) [#/Vol] 177 10*3/uL Normal 150-450 [facility] Comment on above: Performed By: #### L 100.0500, L506.1001, L500.4050, L503.0106, L501.9520 #### [facility] [address] [place], [address] RBC (Bld) [#/Vol] 4.00 10*6/uL Low 4.2-5.4 [facility] Comment on above: Performed By: #### L 100.0500, L506.1001, L500.4050, L503.0106, L501.9520 #### [facility] [address] [place], [address] RDW SD 46.1 fl High 35.1-43.9 [facility] Comment on above: Performed By: #### L 100.0500, L506.1001, L500.4050, L503.0106, L501.9520 #### [facility] [address] [place], [address] WBC (Bld) [#/Vol] 4.9 10*3/uL Normal 4.4-11.0 [facility] Comment on above: Performed By: #### L 100.0500, L506.1001, L500.4050, L503.0106, L501.9520 #### [facility] [address] [place], [address] Carbon dioxide, total [Moles /volume] in Central venous bloodOrdered By: Alex Sommers on 02-27-2025 CO2 [Moles/Vol] 24.0 mmol/L 21.0-32.0 [facility] Chloride assayOrdered By: Ina Sommers on 02-27-2025 Chloride [Moles/Vol] 105 mmol/L 98-108 [facility] Comprehensive Metabolic Prof ilon 02-27-2025 Albumin [Mass/Vol] 4.3 g/dL Normal 3.4-4.8 [facility] Comment on above: Performed By: #### L 100.0500, L506.1001, L500.4050, L503.0106, L501.9520 #### [facility] [address] [place], [address] Albumin/Globulin [Mass ratio] 1.8 {ratio} Normal 0.9-2.4 [facility] Comment on above: Performed By: #### L 100.0500, L506.1001, L500.4050, L503.0106, L501.9520 #### [facility] [address] [place], [address] ALK PHOS 88 U/L Normal 35-104 [facility] Comment on above: Performed By: #### L 100.0500, L506.1001, L500.4050, L503.0106, L501.9520 #### [facility] [address] [place], [address] ALT [Catalytic activity/Vol] 13 U/L Normal <=34 [facility] Comment on above: Performed By: #### L 100.0500, L506.1001, L500.4050, L503.0106, L501.9520 #### [facility] [address] [place], [address] AST [Catalytic activity/Vol] 20 U/L Normal <=31 [facility] Comment on above: Performed By: #### L 100.0500, L506.1001, L500.4050, L503.0106, L501.9520 #### [facility] [address] [place], [address] Bilirubin [Mass/Vol] 0.43 mg/dL Normal 0.00-1.30 [facility] Comment on above: Performed By: #### L 100.0500, L506.1001, L500.4050, L503.0106, L501.9520 #### [facility] [address] [place], [address] BUN/CRE 21.3 RATIO High 10-20 [facility] Comment on above: Performed By: #### L 100.0500, L506.1001, L500.4050, L503.0106, L501.9520 #### [facility] [address] [place], [address] Calcium [Mass/Vol] 9.6 mg/dL Normal 7.6-11.0 [facility] Comment on above: Performed By: #### L 100.0500, L506.1001, L500.4050, L503.0106, L501.9520 #### [facility] [address] [place], [address] Chloride [Moles/Vol] 105 mmol/L Normal 98-108 [facility] Comment on above: Performed By: #### L 100.0500, L506.1001, L500.4050, L503.0106, L501.9520 #### [facility] [address] [place], [address] CO2 [Moles/Vol] 24.0 mmol/L Normal 21.0-32.0 [facility] Comment on above: Performed By: #### L 100.0500, L506.1001, L500.4050, L503.0106, L501.9520 #### [facility] [address] [place], [address] Creatinine [Mass/Vol] 0.85 mg/dL Normal 0.70-1.20 [facility] Comment on above: Performed By: #### L 100.0500, L506.1001, L500.4050, L503.0106, L501.9520 #### [facility] [address] [place], [address] GAP 12 Normal 5-15 [facility] Comment on above: Performed By: #### L 100.0500, L506.1001, L500.4050, L503.0106, L501.9520 #### [facility] [address] [place], [address] GFR/1.73 sq M.predicted among non-blacks MDRD (S/P/Bld) [Vol rate/Area] 68 mL/min/{1.73_m2} Normal >60 [facility] Comment on above: Result Comment: mL/m in/1.73m2 CKD-EPI Creatinine Equation (2020) Performed By: #### L 100.0500, L506.1001, L500.4050, L503.0106, L501.9520 #### [facility] [address] [place], [address] Globulin (S) [Mass/Vol] 2.4 g/dL Normal 2.2-4.2 [facility] Comment on above: Performed By: #### L 100.0500, L506.1001, L500.4050, L503.0106, L501.9520 #### [facility] [address] [place], [address] Glucose [Mass/Vol] 99 mg/dL Normal 70-99 [facility] Comment on above: Performed By: #### L 100.0500, L506.1001, L500.4050, L503.0106, L501.9520 #### [facility] [address] [place], [address] Potassium [Moles/Vol] 3.7 mmol/L Normal 3.3-5.1 [facility] Comment on above: Performed By: #### L 100.0500, L506.1001, L500.4050, L503.0106, L501.9520 #### [facility] [address] [place], [address] Sodium [Moles/Vol] 141 mmol/L Normal 133-145 [facility] Comment on above: Performed By: #### L 100.0500, L506.1001, L500.4050, L503.0106, L501.9520 #### [facility] [address] [place], [address] T PROT 6.7 g/dL Normal 5.9-8.4 [facility] Comment on above: Performed By: #### L 100.0500, L506.1001, L500.4050, L503.0106, L501.9520 #### [facility] [address] [place], [address] Urea nitrogen [Mass/Vol] 18 mg/dL Normal 4-19 [facility] Comment on above: Performed By: #### L 100.0500, L506.1001, L500.4050, L503.0106, L501.9520 #### [facility] [address] [place], [address] Erythrocyte distribution wid th ratioOrdered By: Alex Sommres on 02-27-2025 Erythrocyte distribution width (RBC) [Ratio] 13.7 % 11.6-14.6 [facility] Erythrocyte distribution wid th standard deviationOrdered By: Alex Sommers on 02-27-2025 Erythrocyte distribution width (RBC) [Ratio] 46.1 fl High 35.1-43.9 [facility] Glomerular filtration rate ( GFR) estimation/1.73 sq m using serum, plasma, or whole bOrdered By: Alex Sommers on 02-27-2025 GFR/1.73 sq M.predicted among non-blacks MDRD (S/P/Bld) [Vol rate/Area] 68 mL/min/{1.73_m2} >60 [facility] Comment on above: mL/min/1.73m2 CKD-EP I Creatinine Equation (2020) Hematocrit Auto (Bld) [Volum e fraction]Ordered By: Alex Sommers on 02-27-2025 Hematocrit (Bld) [Volume fraction] 36.4 % Low 37-47 [facility] Hemoglobin measurementOrdere d By: Alex Sommers on 02-27-2025 Hemoglobin (Bld) [Mass/Vol] 12.1 g/dL 12.0-15.0 [facility] - Chemistry and C hemistry - challengeOrdered By: Alex Sommers on 02-27-2025 AST [Catalytic activity/Vol] 20 U/L <32 [facility] MCV (mean corpuscular volume ) determinationOrdered By: Alex Sommers on 02-27-2025 MCV (RBC) [Entitic vol] 91.0 fL 81-99 [facility] Mean corpuscular hemoglobin (MCH) determinationOrdered By: Alex Sommers on 02-27-2025 MCH (RBC) [Entitic mass] 30.3 pg 27.0-32.0 [facility] Mean corpuscular hemoglobin concentration (MCHC) determinationOrdered By: Alex Sommers on 02-27-2025 MCHC (RBC) [Mass/Vol] 33.2 g/dL 32-36 [facility] Mean platelet volume determi nationOrdered By: Alex Sommers on 02-27-2025 Platelet mean volume (Bld) [Entitic vol] 10.7 fL 6.2-12.0 [facility] Platelet countOrdered By: Ina Sommers on 02-27-2025 Platelets (Bld) [#/Vol] 177 10*3/uL 150-450 [facility] Potassium measurement (mass/ volume)Ordered By: Alex Sommers on 02-27-2025 Potassium (Unsp spec) [Mass/Vol] 3.7 mmol/L 3.3-5.1 [facility] RBC Auto (Bld) [#/Vol]Ordere d By: Alex Sommers on 02-27-2025 RBC (Bld) [#/Vol] 4.00 10*6/uL Low 4.2-5.4 [facility] Serum creatinine measurement (mass/volume)Ordered By: Alex Sommers on 02-27-2025 Creatinine [Mass/Vol] 0.85 mg/dL 0.70-1.20 [facility] Serum globulin measurementOr dered By: Alex Sommers on 02-27-2025 Globulin (S) [Mass/Vol] 2.4 g/dL 2.2-4.2 [facility] Serum glucose measurement (m ass/volume)Ordered By: Alex Sommers on 02-27-2025 Glucose [Mass/Vol] 99 mg/dL 70-99 [facility] Serum or plasma alanine redmond otransferase (ALT) measurementOrdered By: Alex Sommers on 02-27-2025 ALT [Catalytic activity/Vol] 13 U/L <35 [facility] Serum or plasma albumin josie urement (mass/volume)Ordered By: Alex Sommers on 02-27-2025 Albumin [Mass/Vol] 4.3 g/dL 3.4-4.8 [facility] Serum or plasma albumin/glob ulin mass ratioOrdered By: Alex Sommers on 02-27-2025 Albumin/Globulin [Mass ratio] 1.8 {ratio} 0.9-2.4 [facility] Serum or plasma alkaline lucita sphatase measurementOrdered By: Alex Sommers on 02-27-2025 ALP [Catalytic activity/Vol] 88 U/L 35-104 [facility] Serum or plasma calcium josie urement (mass/volume)Ordered By: Alex Sommers on 02-27-2025 Calcium [Mass/Vol] 9.6 mg/dL 7.6-11.0 [facility] Serum or plasma urea nitroge n measurement (mass/volume)Ordered By: Alex Sommers on 02-27-2025 Urea nitrogen [Mass/Vol] 18 mg/dL 4-19 [facility] Sodium levelOrdered By: Alex Sommers on 02-27-2025 Sodium [Moles/Vol] 141 mmol/L 133-145 [facility] TSH DL <= 0.005 mIU/L QnOrde red By: Alex Sommers on 02-27-2025 TSH Qn 1.630 uIU/mL 0.300-4.200 [facility] Thyroid Stim Hormone (TSH)on 02-27-2025 TSH 1.630 uIU/mL Normal 0.300-4.200 [facility] Comment on above: Performed By: #### M 100.678, L400.0001 #### [facility] [address] [place], [place], [id number] Total proteinOrdered By: Andre Sommers on 02-27-2025 Protein [Mass/Vol] 6.7 g/dL 5.9-8.4 [facility] Vitamin B12on 02-27-2025 Cobalamin (Vitamin B12) [Mass/Vol] 337 pg/mL Normal 180-914 [facility] Comment on above: Performed By: #### M 100.678, L400.0001 #### [facility] [address] [place], [place], [id number] Vitamin B12 ser/plasOrdered By: Alex Sommers on 02-27-2025 Cobalamin (Vitamin B12) [Mass/Vol] 337 pg/mL 180-914 [facility] Vitamin D,25 Hydroxyon 02-27 Vitamin D 25-OH 28.0 ng/mL Low 30-100 [facility] Comment on above: Result Comment: Cindi min D Status Deficiency: <20 ng/mL (50nmol/L) Insufficiency: 20-30 ng/mL (50-75 nmol/L) Sufficiency: 30-100 ng/mL (75-250 nmol/L) Toxicity: >100 ng/mL (>250 nmol/L) Performed By: #### M 100.678, L400.0001 #### [facility] [address], [id number] White blood cell (WBC) count Ordered By: Alex Sommers on 02-27-2025 WBC (Bld) [#/Vol] 4.9 10*3/uL 4.4-11.0 [facility] Absolute lymphocyte countOrd ered By: Nima Harper on 12-31-2023 Lymphocytes Auto (Unsp spec) [#/Vol] 1.76 10*3/uL 0.83-4.51 [facility] Automated lymphocyte count a s percentage of total leukocytesOrdered By: Nima Leroy on 12-31-2023 Lymphocytes/100 WBC Auto (Unsp spec) 31.0 % 19-41 [facility] Basophil percentageOrdered B y: Nima Harper on 12-31-2023 Basophils/100 WBC (Bld) 0.9 % 0-1 [facility] Chloride [Moles/Vol] 109 mmol/L 98-107 [facility] Eosinophils/100 WBC (Bld) 5.1 % 0-5 [facility] Glucose [Mass/Vol] 102 mg/dL 74-106 [facility] Comment on above: Fasting Glucose resu lt from 100 to 125 mg/dL suggests IMPAIRED HOMEOSTASIS per A.D.A. criteria. Hemoglobin (Bld) [Mass/Vol] 10.6 g/dL 12.0-15.0 [facility] Monocytes/100 WBC (Bld) 9.2 % 0-10 [facility] Neutrophils (Bld) [#/Vol] 3.0 10*3/uL 2.0-7.7 [facility] Neutrophils/100 WBC (Bld) 53.3 % 47-70 [facility] Potassium [Moles/Vol] 4.3 mmol/L 3.5-5.1 [facility] Sodium [Moles/Vol] 139 mmol/L 136-145 [facility] WBC (Bld) [#/Vol] 5.7 10*3/uL 4.4-11.0 [facility] Determination of erythrocyte mean corpuscular volume (MCV)Ordered By: Nima Harper on 12-31-2023 MCV (RBC) [Entitic vol] 89.0 fL 81-99 [facility] Erythrocyte distribution wid th ratioOrdered By: Nima Harper on 12-31-2023 Erythrocyte distribution width (RBC) [Ratio] 14.1 % 11.6-14.6 [facility] Erythrocyte distribution wid th standard deviationOrdered By: Nima Harper on 12-31-2023 Erythrocyte distribution width (RBC) [Entitic vol] 45.7 fL 35.1-43.9 [facility] Hematocrit Auto (Bld) [Volum e fraction]Ordered By: Nima Harper on 12-31-2023 Hematocrit (Bld) [Volume fraction] 33.2 % 37-47 [facility] Immature granulocytes/100 WB C Auto (Bld)Ordered By: Nima Harper on 12-31-2023 Immature granulocytes/100 WBC (Bld) 0.500 % 0.0-0.9 [facility] Comment on above: IG% - Immature Granu locytes (promyelocytes, myelocytes and metamyelocytes) > 1% indicates that a LEFT SHIFT is Present. Laboratory - Chemistry and C hemistry - challengeOrdered By: Nima Harper on 12-31-2023 CO2 [Moles/Vol] 25.0 mmol/L 21.0-32.0 [facility] Urea nitrogen/Creatinine [Mass ratio] 30.0 mg/mg 10-20 [facility] - Hematology and Cell countsOrdered By: Nima Harper on 12-31-2023 MCH (RBC) [Entitic mass] 28.4 pg 27.0-32.0 [facility] MCHC (RBC) [Mass/Vol] 31.9 g/dL 32-36 [facility] Nucleated RBC/100 WBC (Bld) [Ratio] 0 % 0-5 [facility] Platelet mean volume (Bld) [Entitic vol] 10.2 fL 6.2-12.0 [facility] Platelets (Bld) [#/Vol] 216 10*3/uL 150-450 [facility] No Panel InformationOrdered By: Nima Harper on 12-31-2023 Estimated Creatinine Clearance Calc 57.44 ml/min [facility] Estimated GFR (MDRD) Amer 88 mL/min >60 [facility] Comment on above: GFR Calc Estimated GFR (MDRD) Non-Af Amer 73 mL/min >60 [facility] Comment on above: Non- GFR Calc RBC Auto (Bld) [#/Vol]Ordere d By: Nima Harper on 12-31-2023 RBC (Bld) [#/Vol] 3.73 10*6/uL 4.2-5.4 [facility] Serum or plasma calcium josie urement (mass/volume)Ordered By: Nima Harper on 12-31-2023 Calcium [Mass/Vol] 9.4 mg/dL 8.5-10.1 [facility] Serum or plasma creatinine m easurement (mass/volume)Ordered By: Nima Harper on 12-31-2023 Creatinine [Mass/Vol] 0.80 mg/dL 0.55-1.02 [facility] Comment on above: The validity of the calculated GFR & GFRAA in patients over 70 years has not been determined. Clinical correlation is essential. Serum or plasma urea nitroge n measurement (mass/volume)Ordered By: Nima Harper on 12-31-2023 Urea nitrogen [Mass/Vol] 24 mg/dL 7-18 [facility] Thin prep Papanicolaou smear with manual screeningOrdered By: Nima Harper on 12-31-2023 Thin prep Papanicolaou smear with manual screening 5 5-15 [facility] Absolute lymphocyte countOrd ered By: Nima Leroy on 12-24-2023 Lymphocytes Auto (Unsp spec) [#/Vol] 1.46 10*3/uL 0.83-4.51 [facility] Automated lymphocyte count a s percentage of total leukocytesOrdered By: Nima Harper on 12-24-2023 Lymphocytes/100 WBC Auto (Unsp spec) 20.2 % 19-41 [facility] Basophil percentageOrdered B y: Nima Harper on 12-24-2023 Basophil percentage 0-5 SEEN /hpf 0-5 [facility] Basophils/100 WBC (Bld) 0.7 % 0-1 [facility] Chloride [Moles/Vol] 107 mmol/L 98-107 [facility] Eosinophils/100 WBC (Bld) 0.4 % 0-5 [facility] Glucose [Mass/Vol] 123 mg/dL 74-106 [facility] Comment on above: Fasting Glucose resu lt from 100 to 125 mg/dL suggests IMPAIRED HOMEOSTASIS per A.D.A. criteria. Hemoglobin (Bld) [Mass/Vol] 10.5 g/dL 12.0-15.0 [facility] Monocytes/100 WBC (Bld) 10.0 % 0-10 [facility] Neutrophils (Bld) [#/Vol] 4.9 10*3/uL 2.0-7.7 [facility] Neutrophils/100 WBC (Bld) 68.0 % 47-70 [facility] Potassium [Moles/Vol] 3.7 mmol/L 3.5-5.1 [facility] Sodium [Moles/Vol] 138 mmol/L 136-145 [facility] WBC (Bld) [#/Vol] 7.2 10*3/uL 4.4-11.0 [facility] Bilirubin Test strip Ql (U)O rdered By: Nima Harper on 12-24-2023 Bilirubin Ql (U) Negative Negative [facility] Culture, urineOrdered By: Nathan Harper on 12-24-2023 Bacteria identified Cx Nom (U) Culture exhibits no growth. [facility] Determination of erythrocyte mean corpuscular volume (MCV)Ordered By: Nima Harper on 12-24-2023 MCV (RBC) [Entitic vol] 88.3 fL 81-99 [facility] Erythrocyte distribution wid th ratioOrdered By: Nima Harper on 12-24-2023 Erythrocyte distribution width (RBC) [Ratio] 14.6 % 11.6-14.6 [facility] Erythrocyte distribution wid th standard deviationOrdered By: Nima Harper on 12-24-2023 Erythrocyte distribution width (RBC) [Entitic vol] 46.9 fL 35.1-43.9 [facility] Hematocrit Auto (Bld) [Volum e fraction]Ordered By: Nima Harper on 12-24-2023 Hematocrit (Bld) [Volume fraction] 32.3 % 37-47 [facility] Immature granulocytes/100 WB C Auto (Bld)Ordered By: Nima Harper on 12-24-2023 Immature granulocytes/100 WBC (Bld) 0.700 % 0.0-0.9 [facility] Comment on above: IG% - Immature Granu locytes (promyelocytes, myelocytes and metamyelocytes) > 1% indicates that a LEFT SHIFT is Present. Ketones Test strip Ql (U)Ord ered By: Nima Harper on 12-24-2023 Ketones Ql (U) Negative Negative [facility] - Chemistry and C hemistry - challengeOrdered By: Nima Harper on 12-24-2023 CO2 [Moles/Vol] 26.0 mmol/L 21.0-32.0 [facility] Urea nitrogen/Creatinine [Mass ratio] 20.8 mg/mg 10-20 [facility] - Hematology and Cell countsOrdered By: Nima Harper on 12-24-2023 MCH (RBC) [Entitic mass] 28.7 pg 27.0-32.0 [facility] MCHC (RBC) [Mass/Vol] 32.5 g/dL 32-36 [facility] Nucleated RBC/100 WBC (Bld) [Ratio] 0 % 0-5 [facility] Platelet mean volume (Bld) [Entitic vol] 10.9 fL 6.2-12.0 [facility] Platelets (Bld) [#/Vol] 161 10*3/uL 150-450 [facility] Mucus LM Ql (Urine sed)Order ed By: Nima Harper on 12-24-2023 Mucus Ql (Urine sed) 0 SEEN /hpf [facility] Nitrite Test strip Ql (U)Ord ered By: Nima Harper on 12-24-2023 Nitrite Ql (U) Negative Negative [facility] No Panel InformationOrdered By: Nima Harper on 12-24-2023 Urine RBC 5-10 SEEN /hpf 0-5 [facility] Estimated Creatinine Clearance Calc 57.86 ml/min [facility] Estimated GFR (MDRD) Amer 117 mL/min >60 [facility] Comment on above: GFR Calc Estimated GFR (MDRD) Non-Af Amer 97 mL/min >60 [facility] Comment on above: Non- GFR Calc Protein Test strip Ql (U)Ord ered By: Nima Harper on 12-24-2023 Protein Ql (U) 15 mg/dl Negative [facility] RBC Auto (Bld) [#/Vol]Ordere d By: Nima Harper on 12-24-2023 RBC (Bld) [#/Vol] 3.66 10*6/uL 4.2-5.4 [facility] Respiratory pathogens detect ion panel by molecular detection methodOrdered By: Nima Harper on 12-24-2023 Respiratory pathogens DNA and RNA panel DEDRICK+probe (Resp) [facility] Serum or plasma calcium josie urement (mass/volume)Ordered By: Nima Harper on 12-24-2023 Calcium [Mass/Vol] 9.3 mg/dL 8.5-10.1 [facility] Serum or plasma creatinine m easurement (mass/volume)Ordered By: Nima Harper on 12-24-2023 Creatinine [Mass/Vol] 0.62 mg/dL 0.55-1.02 [facility] Comment on above: The validity of the calculated GFR & GFRAA in patients over 70 years has not been determined. Clinical correlation is essential. Serum or plasma urea nitroge n measurement (mass/volume)Ordered By: Nima Harper on 12-24-2023 Urea nitrogen [Mass/Vol] 13 mg/dL 7-18 [facility] Squamous epithelial cells de tection in urine sediment by light microscopyOrdered By: Nima Harper 12-24-2023 Epithelial cells.squamous LM Ql (Urine sed) 0-5 SEEN /hpf 5-10 [facility] Thin prep Papanicolaou smear with manual screeningOrdered By: Nima Harper 12-24-2023 Thin prep Papanicolaou smear with manual screening 5 5-15 [facility] Urine blood detectionOrdered By: Nima Harper on 12-24-2023 RBC Ql (U) 50 /ul Negative [facility] Urine clarityOrdered By: Nima Harper 12-24-2023 Clarity (U) Clear Clear [facility] Urine color determinationOrd ered By: Nima Harper 12-24-2023 Color (U) Yellow Yellow [facility] Urine glucose detectionOrder ed By: Nima Harper 12-24-2023 Glucose Ql (U) Normal mg/dl Normal [facility] Urine leukocyte esterase det ection by dipstickOrdered By: Nima Harper 12-24-2023 Leukocyte esterase Test strip Ql (U) 25 /ul Negative [facility] Urine pHOrdered By: Nima Harper on 12-24-2023 pH (U) 6.5 [pH] 5.0 - 8.0 [facility] Urine sediment bacteria coun t by microscopy (number/high power field)Ordered By: Nima Harper on 12-24-2023 Bacteria LM.HPF (Urine sed) [#/Area] RARE /hpf None Seen [facility] Urine specific gravity measu rementOrdered By: Nima Harper 12-24-2023 Specific gravity (U) [Rel density] 1.015 1.002-1.030 [facility] [facility] U[facility] urobilinogen measureme ntOrdered By: Nima Harper on 12-24-2023 Urobilinogen Ql (U) Normal mg/dl Normal [facility] Basophil percentageOrdered B y: Jose Ramon Zuluaga on 12-23-2023 Hemoglobin (Bld) [Mass/Vol] 10.2 g/dL 12.0-15.0 [facility] WBC (Bld) [#/Vol] 8.5 10*3/uL 4.4-11.0 [facility] Determination of erythrocyte mean corpuscular volume (MCV)Ordered By: Jose Ramon Zuluaga on 12-23-2023 MCV (RBC) [Entitic vol] 89.0 fL 81-99 [facility] Erythrocyte distribution wid th ratioOrdered By: Jose Ramon Zuluaga on 12-23-2023 Erythrocyte distribution width (RBC) [Ratio] 14.5 % 11.6-14.6 [facility] Erythrocyte distribution wid th standard deviationOrdered By: Jose Ramon Zuluaga on 12-23-2023 Erythrocyte distribution width (RBC) [Entitic vol] 46.8 fL 35.1-43.9 [facility] Hematocrit Auto (Bld) [Volum e fraction]Ordered By: Jose Ramon Zuluaga on 12-23-2023 Hematocrit (Bld) [Volume fraction] 31.4 % 37-47 [facility] Laboratory - Hematology and Cell countsOrdered By: Jose Ramon Zuluaga on 12-23-2023 MCH (RBC) [Entitic mass] 28.9 pg 27.0-32.0 [facility] MCHC (RBC) [Mass/Vol] 32.5 g/dL 32-36 [facility] Platelet mean volume (Bld) [Entitic vol] 10.3 fL 6.2-12.0 [facility] Platelets (Bld) [#/Vol] 142 10*3/uL 150-450 [facility] RBC Auto (Bld) [#/Vol]Ordere d By: Jose Ramon Zuluaga on 12-23-2023 RBC (Bld) [#/Vol] 3.53 10*6/uL 4.2-5.4 [facility] Basophil percentageOrdered B y: Jose Ramon Zuluaga on 12-22-2023 Chloride [Moles/Vol] 110 mmol/L 98-107 [facility] Glucose [Mass/Vol] 118 mg/dL 74-106 [facility] Comment on above: Fasting Glucose resu lt from 100 to 125 mg/dL suggests IMPAIRED HOMEOSTASIS per A.D.A. criteria. Potassium [Moles/Vol] 4.3 mmol/L 3.5-5.1 [facility] Sodium [Moles/Vol] 141 mmol/L 136-145 [facility] Laboratory - Chemistry and C hemistry - challengeOrdered By: Jose Ramon Zuluaga on 12-22-2023 CO2 [Moles/Vol] 23.0 mmol/L 21.0-32.0 [facility] Urea nitrogen/Creatinine [Mass ratio] 21.9 mg/mg 10-20 [facility] No Panel InformationOrdered By: Jose Ramon Zuluaga on 12-22-2023 Estimated Creatinine Clearance Calc 58.04 ml/min [facility] Estimated GFR (MDRD) Amer 98 mL/min >60 [facility] Comment on above: GFR Calc Estimated GFR (MDRD) Non-Af Amer 81 mL/min >60 [facility] Comment on above: Non- GFR Calc Serum or plasma calcium josie urement (mass/volume)Ordered By: Jose Ramon Zuluaga on 12-22-2023 Calcium [Mass/Vol] 9.6 mg/dL 8.5-10.1 [facility] Serum or plasma creatinine m easurement (mass/volume)Ordered By: Jose Ramon Zuluaga on 12-22-2023 Creatinine [Mass/Vol] 0.73 mg/dL 0.55-1.02 [facility] Comment on above: The validity of the calculated GFR & GFRAA in patients over 70 years has not been determined. Clinical correlation is essential. Serum or plasma urea nitroge n measurement (mass/volume)Ordered By: Jose Ramon Zuluaga on 12-22-2023 Urea nitrogen [Mass/Vol] 16 mg/dL 7-18 [facility] Thin prep Papanicolaou smear with manual screeningOrdered By: Jose Ramon Zuluaga on 12-22-2023 Thin prep Papanicolaou smear with manual screening 8 5-15 [facility] Thin prep Papanicolaou smear with manual screeningOrdered By: Jose Ramon Zuluaga on 12-21-2023 Thin prep Papanicolaou smear with manual screening 106 mg/dL 74-106 [facility] Comment on above: MANAGEMENT OF PATIEN T CARE PER NURSING PROTOCOL Absolute lymphocyte countOrd ered By: Jose Ramon Zuluaga on 12-08-2023 Lymphocytes Auto (Unsp spec) [#/Vol] 1.63 10*3/uL 0.83-4.51 [facility] Automated lymphocyte count a s percentage of total leukocytesOrdered By: Jose Ramon Zuluaga on 12-08-2023 Lymphocytes/100 WBC Auto (Unsp spec) 40.0 % 19-41 [facility] Basophil percentageOrdered B y: Jose Ramon Zuluaga on 12-08-2023 Basophils/100 WBC (Bld) 1.2 % 0-1 [facility] Eosinophils/100 WBC (Bld) 2.2 % 0-5 [facility] Monocytes/100 WBC (Bld) 7.6 % 0-10 [facility] Neutrophils (Bld) [#/Vol] 2.0 10*3/uL 2.0-7.7 [facility] Neutrophils/100 WBC (Bld) 48.8 % 47-70 [facility] Immature granulocytes/100 WB C Auto (Bld)Ordered By: Jose Ramon Zuluaga on 12-08-2023 Immature granulocytes/100 WBC (Bld) 0.200 % 0.0-0.9 [facility] Comment on above: IG% - Immature Granu locytes (promyelocytes, myelocytes and metamyelocytes) > 1% indicates that a LEFT SHIFT is Present. Laboratory - Chemistry and C hemistry - challengeOrdered By: Brandon Rosado on 12-08-2023 Magnesium [Mass/Vol] 2.5 mg/dL 1.6-2.6 [facility] Laboratory - Hematology and Cell countsOrdered By: Jose Ramon Zuluaga on 12-08-2023 Nucleated RBC/100 WBC (Bld) [Ratio] 0 % 0-5 [facility] No Panel InformationOrdered By: Jose Ramon Zuluaga on 12-08-2023 Nasal Screen MRSA/MSSA [facility] Thin prep Papanicolaou smear with manual screeningOrdered By: Jose Ramon Zuluaga on 12-08-2023 Thin prep Papanicolaou smear with manual screening 3.6 g/dL 3.2-5.0 [facility] Absolute lymphocyte countOrd ered By: Alex Sommers on 10-14-2023 Lymphocytes Auto (Unsp spec) [#/Vol] 1.99 10*3/uL 0.83-4.51 [facility] Basophil percentageOrdered B y: Alex Sommers on 10-14-2023 Basophils/100 WBC (Bld) 0.7 % 0-1 [facility] Bilirubin [Mass/Vol] 0.60 mg/dL 0.20-1.00 [facility] Comment on above: For patients on eltr ombopag therapy, use of Dimension [place] TBIL is not recommended. Chloride [Moles/Vol] 110 mmol/L 98-107 [facility] Cholesterol [Mass/Vol] 176 mg/dL <200 [facility] Comment on above: <200 mg/dL Desirable 200-240 mg/dL Borderline >240 mg/dL High Risk Eosinophils/100 WBC (Bld) 3.0 % 0-5 [facility] Glucose [Mass/Vol] 112 mg/dL 74-106 [facility] Comment on above: Fasting Glucose resu lt from 100 to 125 mg/dL suggests IMPAIRED HOMEOSTASIS per A.D.A. criteria. Neutrophils (Bld) [#/Vol] 3.3 10*3/uL 2.0-7.7 [facility] Neutrophils/100 WBC (Bld) 55.0 % 47-70 [facility] Potassium [Moles/Vol] 3.8 mmol/L 3.5-5.1 [facility] Protein [Mass/Vol] 6.9 g/dL 6.4-8.2 [facility] Sodium [Moles/Vol] 140 mmol/L 136-145 [facility] Triglyceride [Mass/Vol] 218 mg/dL <199 [facility] Comment on above: The drugs N-Acetylcy steine and Metamizole may falsely depress this assay.Serum Triglycerides Reference Interval Normal <150 mg/dL Borderline high 150 - 199 mg/dL High 200 - 499 mg/dL Very High > or = 500 mg/dL WBC (Bld) [#/Vol] 6.0 10*3/uL 4.4-11.0 [facility] Bilirubin Test strip Ql (U)O rdered By: Alex Sommers on 10-14-2023 Bilirubin Ql (U) 1 mg/dL Negative [facility] Comment on above: COLOR OF URINE MAY A FFECT DIPSTICK RESULTS. Blood erythrocytes count (nu mber/volume)Ordered By: Alex Sommers on 10-14-2023 RBC (Bld) [#/Vol] 3.83 10*6/uL 4.2-5.4 [facility] Blood hemoglobin measurement (mass/volume)Ordered By: Alex Sommers on 10-14-2023 Hemoglobin (Bld) [Mass/Vol] 11.3 g/dL 12.0-15.0 [facility] Blood lymphocytes/100 leukoc ytesOrdered By: Alex Sommers on 10-14-2023 Lymphocytes/100 WBC (Bld) 33.4 % 19-41 [facility] Blood monocytes/100 leukocyt esOrdered By: Alex Sommers on 10-14-2023 Monocytes/100 WBC (Bld) 7.6 % 0-10 [facility] Blood platelet mean volumeOr dered By: Alex Sommers on 10-14-2023 Platelet mean volume (Bld) [Entitic vol] 10.1 fL 6.2-12.0 [facility] Determination of erythrocyte mean corpuscular volume (MCV)Ordered By: Alex Sommers on 10-14-2023 MCV (RBC) [Entitic vol] 90.1 fL 81-99 [facility] Hematocrit Auto (Bld) [Volum e fraction]Ordered By: Alex Sommers on 10-14-2023 Hematocrit (Bld) [Volume fraction] 34.5 % 37-47 [facility] Ketones Test strip Ql (U)Ord ered By: Alex Sommers on 10-14-2023 Ketones Ql (U) 5 mg/dl Negative [facility] Laboratory - Chemistry and C hemistry - challengeOrdered By: Alex Sommers on 10-14-2023 ALP [Catalytic activity/Vol] 119 U/L 45-117 [facility] ALT [Catalytic activity/Vol] 19 U/L 13-56 [facility] CO2 [Moles/Vol] 24.0 mmol/L 21.0-32.0 [facility] Globulin (S) [Mass/Vol] 3.2 g/dL 2.2-4.2 [facility] Urea nitrogen/Creatinine [Mass ratio] 22.6 mg/mg 10-20 [facility] - Hematology and Cell countsOrdered By: Alex Sommers on 10-14-2023 Erythrocyte distribution width (RBC) [Entitic vol] 44.9 fL 35.1-43.9 [facility] Erythrocyte distribution width (RBC) [Ratio] 13.8 % 11.6-14.6 [facility] Immature granulocytes/100 WBC (Bld) 0.300 % 0.0-0.9 [facility] Comment on above: IG% - Immature Granu locytes (promyelocytes, myelocytes and metamyelocytes) > 1% indicates that a LEFT SHIFT is Present. MCH (RBC) [Entitic mass] 29.5 pg 27.0-32.0 [facility] Nucleated RBC/100 WBC (Bld) [Ratio] 0 % 0-5 [facility] MCHC Auto (RBC) [Mass/Vol]Or dered By: Alex Sommers on 10-14-2023 MCHC (RBC) [Mass/Vol] 32.8 g/dL 32-36 [facility] Nitrite Test strip Ql (U)Ord ered By: Alex Sommers on 10-14-2023 Nitrite Ql (U) Negative Negative [facility] No Panel InformationOrdered By: Alex Sommers on 10-14-2023 Estimated GFR (MDRD) Amer 64 mL/min >60 [facility] Comment on above: GFR Calc Estimated GFR (MDRD) Non-Af Amer 53 mL/min >60 [facility] Comment on above: Non- GFR Calc Thyroid Stimulating Hormone (TSH) 2.01 uIU/mL 0.358-3.74 [facility] Vitamin D 25-Hydroxy 33.2 ng/mL [facility] Comment on above: Vitamin D 25(OH) Sta tus Range Deficiency <20 ng/mL (50nmol/L) Insufficiency 20 - 30 ng/mL (50 - 75 nmol/L) Sufficiency 30 - 100 ng/mL (75 - 250 nmol/L) Toxicity >100 ng/mL (>250 nmol/L) Platelets bldOrdered By: Andre Sommers on 10-14-2023 Platelets (Bld) [#/Vol] 231 10*3/uL 150-450 [facility] Protein Test strip Ql (U)Ord ered By: Alex Sommers on 10-14-2023 Protein Ql (U) 15 mg/dl Negative [facility] Serum or plasma albumin josie urement (mass/volume)Ordered By: Alex Sommers on 10-14-2023 Albumin [Mass/Vol] 3.7 g/dL 3.2-5.0 [facility] Serum or plasma albumin/glob ulin mass ratioOrdered By: Alex Sommers on 10-14-2023 Albumin/Globulin [Mass ratio] 1.2 {ratio} 0.9-2.4 [facility] Serum or plasma calcium josie urement (mass/volume)Ordered By: Alex Sommers on 10-14-2023 Calcium [Mass/Vol] 9.0 mg/dL 8.5-10.1 [facility] Serum or plasma cholesterol in HDL measurement (mass/volume)Ordered By: Alex Sommers on 10-14-2023 Cholesterol in HDL [Mass/Vol] 69 mg/dL >40 [facility] Comment on above: The drugs N-Acetylcy steine and Metamizole may falsely depress this assay. Reference Range HDL <40 mg/dL Low HDL Cholesterol HDL >or= 60 mg/dL High HDL Cholesterol Serum or plasma cholesterol in VLDL measurement (mass/volume)Ordered By: Alex Sommers on 10-14-2023 Cholesterol in VLDL [Mass/Vol] 44 mg/dL 5-40 [facility] Serum or plasma creatinine m easurement (mass/volume)Ordered By: Alex Sommers on 10-14-2023 Creatinine [Mass/Vol] 1.06 mg/dL 0.55-1.02 [facility] Comment on above: The validity of the calculated GFR & GFRAA in patients over 70 years has not been determined. Clinical correlation is essential. Serum or plasma low density lipoprotein (LDL) cholesterol measurement (mass/volume)Ordered By: Alex Sommers on 10-14-2023 Cholesterol in LDL [Mass/Vol] 63 mg/dL 0-130 [facility] Serum or plasma urea nitroge n measurement (mass/volume)Ordered By: Alex Sommers on 10-14-2023 Urea nitrogen [Mass/Vol] 24 mg/dL 7-18 [facility] Thin prep Papanicolaou smear with manual screeningOrdered By: Alex Sommers on 10-14-2023 Thin prep Papanicolaou smear with manual screening 13 U/L 15-37 [facility] Thin prep Papanicolaou smear with manual screening 6 5-15 [facility] Urine blood detectionOrdered By: Alex Sommers on 10-14-2023 RBC Ql (U) 150 /ul Negative [facility] Urine clarityOrdered By: Andre Sommers on 10-14-2023 Clarity (U) Clear Clear [facility] Urine color determinationOrd ered By: Alex Sommers on 10-14-2023 Color (U) Yellow Yellow [facility] Urine glucose detectionOrder ed By: Alex Sommers on 10-14-2023 Glucose Ql (U) Normal mg/dl Normal [facility] Urine leukocyte esterase det ection by dipstickOrdered By: Alex Sommers on 10-14-2023 Leukocyte esterase Test strip Ql (U) 25 /ul Negative [facility] Urine pHOrdered By: Alex ferrari on 10-14-2023 pH (U) 5.0 [pH] 5.0 - 8.0 [facility] Urine specific gravity measu rementOrdered By: Alex Sommers on 10-14-2023 Specific gravity (U) [Rel density] 1.025 1.002-1.030 [facility] Urobilinogen Auto test strip Ql (U)Ordered By: Alex Sommers on 10-14-2023 Urobilinogen Ql (U) 1 mg/dl Normal [facility] .Auto Diffon 09-21-2023 Basophil, Absolute 0.0 10 3/mcL Normal 0.0-0.2 [facility] ([place] Comment on above: Performed By: #### A JOSE LUIS, CBC, GFR, ADIFF, BMP #### [place] [address] [address] Basophils/100 WBC (Bld) 0.1 % Normal 0.0-2.5 [facility] ([place] Comment on above: Performed By: #### A JOSE LUIS, CBC, GFR, ADIFF, BMP #### [address] [address] Eosinophil, Absolute 0.0 10 3/mcL Normal 0.0-0.4 [facility] ([place] Comment on above: Performed By: #### A JOSE LUIS, CBC, GFR, ADIFF, BMP #### [address] [address] Eosinophils/100 WBC (Bld) 0.0 % Normal 0.0-7.0 [facility] ([place] Comment on above: Performed By: #### A JOSE LUIS, CBC, GFR, ADIFF, BMP #### [address] [address] Lymphocyte, Absolute 1.3 10 3/mcL Normal 0.8-3.9 [facility] ([place] Comment on above: Performed By: #### A JOSE LUIS, CBC, GFR, ADIFF, BMP #### [address] [address] Lymphocytes/100 WBC (Bld) 10.0 % Normal 10.0-50.0 [facility] ([place] Comment on above: Performed By: #### A JOSE LUIS, CBC, GFR, ADIFF, BMP #### [address] [address] Monocyte, Absolute 0.3 10 3/mcL Normal 0.2-1.0 [facility] ([place] Comment on above: Performed By: #### A JOSE LUIS, CBC, GFR, ADIFF, BMP #### [address] [address] Monocytes/100 WBC (Bld) 2.1 % Normal 1.7-13.0 [facility] ([place] Comment on above: Performed By: #### A JOSE LUIS, CBC, GFR, ADIFF, BMP #### [address] [address] Neutrophils/100 WBC (Bld) 87.8 % High 37.0-80.0 [facility] ([place] Comment on above: Performed By: #### A JOSE LUIS, CBC, GFR, ADIFF, BMP #### [address] [address] .GFRon 09-21-2023 GFR Non- 53 ml/min/1.73sqm Normal [facility] ([place] Comment on above: Result Comment: GFR Population [...] JOSE LUIS, CBC, GFR, ADIFF, BMP #### [address] [address] GFR 64 ml/min/1.73sqm Normal [facility] ([place] Comment on above: Result Comment: GFR Population [...] JOSE LUIS, CBC, GFR, ADIFF, BMP #### [address] [address] .NEUABSon 09-21-2023 Neutrophil, Absolute 11.2 10 3/mcL High 2.9-6.2 [facility] ([place] Comment on above: Performed By: #### A JOSE LUIS, CBC, GFR, ADIFF, BMP #### [address] [address] BMPon 09-21-2023 BUN/Creatinine Ratio 27 ratio Normal 7-27 [facility] ([place] Comment on above: Performed By: #### A JOSE LUIS, CBC, GFR, ADIFF, BMP #### [address] [address] Calcium [Mass/Vol] 8.7 mg/dL Normal 8.4-10.2 [facility] ([place] Comment on above: Performed By: #### A JOSE LUIS, CBC, GFR, ADIFF, BMP #### [address] [address] Chloride [Moles/Vol] 105 mmol/L Normal 98-107 [facility] ([place] Comment on above: Performed By: #### A JOSE LUIS, CBC, GFR, ADIFF, BMP #### [address] [address] CO2 [Moles/Vol] 26 mmol/L Normal 23-31 [facility] ([place] Comment on above: Performed By: #### A JOSE LUIS, CBC, GFR, ADIFF, BMP #### [address] [address] Creatinine [Mass/Vol] 1.00 mg/dL Normal 0.55-1.02 [facility] ([place] Comment on above: Performed By: #### A JOSE LUIS, CBC, GFR, ADIFF, BMP #### [address] [address] Electrolyte Balance 8.0 mEq/L Normal 4.0-15.0 [facility] ([place] Comment on above: Performed By: #### A JOSE LUIS, CBC, GFR, ADIFF, BMP #### [address] [address] Glucose [Mass/Vol] 151 mg/dL High 83-110 [facility] ([place] Comment on above: Performed By: #### A JOSE LUIS, CBC, GFR, ADIFF, BMP #### [address] [address] Potassium [Moles/Vol] 4.5 mmol/L Normal 3.5-5.1 [facility] ([place] Comment on above: Performed By: #### A JOSE LUIS, CBC, GFR, ADIFF, BMP #### [address] [address] Sodium [Moles/Vol] 139 mmol/L Normal 136-145 [facility] ([place] Comment on above: Performed By: #### A JOSE LUIS, CBC, GFR, ADIFF, BMP #### [place] [id number] Urea nitrogen [Mass/Vol] 27 mg/dL High 7-18 [facility] ([place] Comment on above: Performed By: #### A JOSE LUIS, CBC, GFR, ADIFF, BMP #### [address] [address] CBCon 09-21-2023 Erythrocyte distribution width (RBC) [Ratio] 13.9 % Normal 11.5-14.5 [facility] ([place] Comment on above: Performed By: #### A JOSE LUIS, CBC, GFR, ADIFF, BMP #### [address] [address] Hematocrit (Bld) [Volume fraction] 33.2 % Low 37.0-47.0 [facility] ([place] Comment on above: Performed By: #### A JOSE LUIS, CBC, GFR, ADIFF, BMP #### [address] [address] Hgb 11.3 G/dL Low 12.0-16.0 [facility] ([place] Comment on above: Performed By: #### A JOSE LUIS, CBC, GFR, ADIFF, BMP #### [address] [address] MCH (RBC) [Entitic mass] 29.7 pg Normal 27.0-31.2 [facility] ([place] Comment on above: Performed By: #### A JOSE LUIS, CBC, GFR, ADIFF, BMP #### [address] [address] MCHC 34.2 G/dL Normal 33.0-37.0 [facility] ([place] Comment on above: Performed By: #### A JOSE LUIS, CBC, GFR, ADIFF, BMP #### [address] [address] MCV (RBC) [Entitic vol] 87.0 fL Normal 80.0-94.0 [facility] ([place] Comment on above: Performed By: #### A JOSE LUIS, CBC, GFR, ADIFF, BMP #### [address] [address] Platelet 176 10 3/mcL Normal 130-400 [facility] ([place] Comment on above: Performed By: #### A JOSE LUIS, CBC, GFR, ADIFF, BMP #### [place] [id number] Platelet mean volume (Bld) [Entitic vol] 8.9 fL Normal 7.4-10.4 [facility] ([place] Comment on above: Performed By: #### A JOSE LUIS, CBC, GFR, ADIFF, BMP #### [address] [address] RBC 3.82 10 6/mcL Low 4.20-5.40 [facility] ([place] Comment on above: Performed By: #### A JOSE LUIS, CBC, GFR, ADIFF, BMP #### [address] [address] WBC 12.7 10 3/mcL High 4.6-10.8 [facility] ([place] Comment on above: Performed By: #### A JOSE LUIS, CBC, GFR, ADIFF, BMP #### [address] [address] LABORATORYOrdered By: SYSTEM SYSTEM on 09-21-2023 Basophil, [...] 09-20-2023 ABO/Rh Interp Positive Invalid Interpretation Code [facility] ([place] Comment on above: Performed By: #### A JOSE LUIS, CBC, GFR, ADIFF, BMP #### [place] [id number] [place], [place] [address] Gel ABSon 09-20-2023 Antibody Screen Gel Negative Normal [facility] ([place] Comment on above: Performed By: #### A JOSE LUIS, CBC, GFR, ADIFF, BMP #### [place] [id number] [place], [place] [address] LABORATORYOrdered By: Carol Perez on 09-20-2023 ABO/Rh [...] 1:06:13 PM Ordering Provider: JOSE RAMON Modi [facility] ([place] .Auto Diffon 08-26-2023 Basophil, Absolute 0.1 10 3/mcL Normal 0.0-0.2 [facility] ([place] Comment on above: Performed By: #### A DIFF, BMP, ANSG, CBC, GFR, ABOG, ANEU, ALB #### [address] [address] Basophils/100 WBC (Bld) 1.0 % Normal 0.0-2.5 [facility] ([place] Comment on above: Performed By: #### A DIFF, BMP, ANSG, CBC, GFR, ABOG, ANEU, ALB #### [address] [address] Eosinophil, Absolute 0.1 10 3/mcL Normal 0.0-0.4 [facility] ([place] Comment on above: Performed By: #### A DIFF, BMP, ANSG, CBC, GFR, ABOG, ANEU, ALB #### [address] [address] Eosinophils/100 WBC (Bld) 2.6 % Normal 0.0-7.0 [facility] ([place] Comment on above: Performed By: #### A DIFF, BMP, ANSG, CBC, GFR, ABOG, ANEU, ALB #### [address] [address] Lymphocyte, Absolute 1.8 10 3/mcL Normal 0.8-3.9 [facility] ([place] Comment on above: Performed By: #### A DIFF, BMP, ANSG, CBC, GFR, ABOG, ANEU, ALB #### [address] [address] Lymphocytes/100 WBC (Bld) 35.5 % Normal 10.0-50.0 [facility] ([place] Comment on above: Performed By: #### A DIFF, BMP, ANSG, CBC, GFR, ABOG, ANEU, ALB #### [address] [address] Monocyte, Absolute 0.4 10 3/mcL Normal 0.2-1.0 [facility] ([place] Comment on above: Performed By: #### A DIFF, BMP, ANSG, CBC, GFR, ABOG, ANEU, ALB #### [address] [address] Monocytes/100 WBC (Bld) 7.9 % Normal 1.7-13.0 [facility] ([place] Comment on above: Performed By: #### A DIFF, BMP, ANSG, CBC, GFR, ABOG, ANEU, ALB #### [address] [address] Neutrophils/100 WBC (Bld) 53.0 % Normal 37.0-80.0 [facility] ([place] Comment on above: Performed By: #### A DIFF, BMP, ANSG, CBC, GFR, ABOG, ANEU, ALB #### [address] [address] .GFRon 08-26-2023 GFR Non- 60 ml/min/1.73sqm Normal [facility] ([place] Comment on above: Result Comment: GFR Population [...] JOSE LUIS, CBC, GFR, ADIFF, BMP #### [address] [address] GFR 73 ml/min/1.73sqm Normal [facility] ([place] Comment on above: Result Comment: GFR Population [...] JOSE LUIS, CBC, GFR, ADIFF, BMP #### [address] [address] .NEUABSon 08-26-2023 Neutrophil, Absolute 2.7 10 3/mcL Low 2.9-6.2 [facility] ([place] Comment on above: Performed By: #### A DIFF, BMP, ANSG, CBC, GFR, ABOG, ANEU, ALB #### [address] [address] ALBon 08-26-2023 Albumin Level 4.1 G/dL Normal 3.4-4.8 [facility] ([place] Comment on above: Performed By: #### A JOSE LUIS, CBC, GFR, ADIFF, BMP #### [address] [address] BMPon 08-26-2023 BUN/Creatinine Ratio 24 ratio Normal 7-27 [facility] ([place] Comment on above: Performed By: #### A DIFF, BMP, ANSG, CBC, GFR, ABOG, ANEU, ALB #### [address] [address] Calcium [Mass/Vol] 8.8 mg/dL Normal 8.4-10.2 [facility] ([place] Comment on above: Performed By: #### A DIFF, BMP, ANSG, CBC, GFR, ABOG, ANEU, ALB #### [address] [address] Chloride [Moles/Vol] 104 mmol/L Normal 98-107 [facility] ([place] Comment on above: Performed By: #### A DIFF, BMP, ANSG, CBC, GFR, ABOG, ANEU, ALB #### [address] [address] CO2 [Moles/Vol] 26 mmol/L Normal 23-31 [facility] ([place] Comment on above: Performed By: #### A DIFF, BMP, ANSG, CBC, GFR, ABOG, ANEU, ALB #### [address] [address] Creatinine [Mass/Vol] 0.90 mg/dL Normal 0.55-1.02 [facility] ([place] Comment on above: Performed By: #### A DIFF, BMP, ANSG, CBC, GFR, ABOG, ANEU, ALB #### [address] [address] Electrolyte Balance 11.0 mEq/L Normal 4.0-15.0 [facility] ([place] Comment on above: Performed By: #### A DIFF, BMP, ANSG, CBC, GFR, ABOG, ANEU, ALB #### [address] [address] Glucose [Mass/Vol] 84 mg/dL Normal 83-110 [facility] ([place] Comment on above: Performed By: #### A DIFF, BMP, ANSG, CBC, GFR, ABOG, ANEU, ALB #### [address] [address] Potassium [Moles/Vol] 4.5 mmol/L Normal 3.5-5.1 [facility] ([place] Comment on above: Performed By: #### A DIFF, BMP, ANSG, CBC, GFR, ABOG, ANEU, ALB #### [address] [address] Sodium [Moles/Vol] 141 mmol/L Normal 136-145 [facility] ([place] Comment on above: Performed By: #### A DIFF, BMP, ANSG, CBC, GFR, ABOG, ANEU, ALB #### [address] [address] Urea nitrogen [Mass/Vol] 22 mg/dL High 7-18 [facility] ([place] Comment on above: Performed By: #### A DIFF, BMP, ANSG, CBC, GFR, ABOG, ANEU, ALB #### [address] [address] CBCon 08-26-2023 Erythrocyte distribution width (RBC) [Ratio] 13.9 % Normal 11.5-14.5 [facility] ([place] Comment on above: Order Comment: Pre-A dmission Testing Performed By: #### A DIFF, BMP, ANSG, CBC, GFR, ABOG, ANEU, ALB #### [address] [address] Hematocrit (Bld) [Volume fraction] 35.1 % Low 37.0-47.0 [facility] ([place] Comment on above: Order Comment: Pre-A dmission Testing Performed By: #### A DIFF, BMP, ANSG, CBC, GFR, ABOG, ANEU, ALB #### [place] [id number] Hgb 12.1 G/dL Normal 12.0-16.0 [facility] ([place] Comment on above: Order Comment: Pre-A dmission Testing Performed By: #### A DIFF, BMP, ANSG, CBC, GFR, ABOG, ANEU, ALB #### [address] [address] MCH (RBC) [Entitic mass] 29.9 pg Normal 27.0-31.2 [facility] ([place] Comment on above: Order Comment: Pre-A dmission Testing Performed By: #### A DIFF, BMP, ANSG, CBC, GFR, ABOG, ANEU, ALB #### [address] [address] MCHC 34.4 G/dL Normal 33.0-37.0 [facility] ([place] Comment on above: Order Comment: Pre-A dmission Testing Performed By: #### A DIFF, BMP, ANSG, CBC, GFR, ABOG, ANEU, ALB #### [address] [address] MCV (RBC) [Entitic vol] 86.9 fL Normal 80.0-94.0 [facility] ([place] Comment on above: Order Comment: Pre-A dmission Testing Performed By: #### A DIFF, BMP, ANSG, CBC, GFR, ABOG, ANEU, ALB #### [address] [address] Platelet 171 10 3/mcL Normal 130-400 [facility] ([place] Comment on above: Order Comment: Pre-A dmission Testing Performed By: #### A DIFF, BMP, ANSG, CBC, GFR, ABOG, ANEU, ALB #### [address] [address] Platelet mean volume (Bld) [Entitic vol] 9.0 fL Normal 7.4-10.4 [facility] ([place] Comment on above: Order Comment: Pre-A dmission Testing Performed By: #### A DIFF, BMP, ANSG, CBC, GFR, ABOG, ANEU, ALB #### [address] [address] RBC 4.04 10 6/mcL Low 4.20-5.40 [facility] ([place] Comment on above: Order Comment: Pre-A dmission Testing Performed By: #### A DIFF, BMP, ANSG, CBC, GFR, ABOG, ANEU, ALB #### [address] [address] WBC 5.1 10 3/mcL Normal 4.6-10.8 [facility]) Comment on above: Order Comment: Pre-A dmission Testing Performed By: #### A DIFF, BMP, ANSG, CBC, GFR, ABOG, ANEU, ALB #### [address] [address] [address] KNEE W/O CONTRAST RIGHTon 08-26-2023 CT [...] PM Ordering Provider: JOSE RAMON ZULUAGA Normal [facility]) Gel ABOon 08-26-2023 ABO/Rh Interp Positive Invalid Interpretation Code [facility]) Comment on above: Performed By: #### A JOSE LUIS, CBC, GFR, ADIFF, BMP #### [address] [address] Gel ABSon 08-26-2023 Antibody Screen Gel Negative Normal [facility]) Comment on above: Performed By: #### A JOSE LUIS, CBC, GFR, ADIFF, BMP #### [address] [address] LABORATORYOrdered By: Blossom Zarate on 08-26-2023 ABO/Rh [...] Comment on above: Result [place]: [place] [id number] MRSA PCR Int MRSA DNA not detecte [...] MRSA (PCR) Not detected Normal Not Detected [facility] ([place] Comment on above: [place]: [place] [id number] Performed By: #### A JOSE LUIS, CBC, GFR, ADIFF, BMP #### [address] [address] MRSA PCR Int Normal [facility] ([place] Comment on above: Result Comment: MRSA DNA [...] LUIS, CBC, GFR, ADIFF, BMP #### Roddy Sims [address] [place], [place] [address] Absolute lymphocyte countOrd ered By: Alex Sommers on 08-12-2023 Lymphocytes Auto (Unsp spec) [#/Vol] 1.91 10*3/uL 0.83-4.51 [facility] Basophil percentageOrdered B y: Alex Sommers on 08-12-2023 Basophils/100 WBC (Bld) 1.2 % 0-1 [facility] Bilirubin [Mass/Vol] 0.40 mg/dL 0.20-1.00 [facility] Comment on above: For patients on eltr ombopag therapy, use of Dimension [place] TBIL is not recommended. Chloride [Moles/Vol] 110 mmol/L 98-107 [facility] Eosinophils/100 WBC (Bld) 2.8 % 0-5 [facility] Glucose [Mass/Vol] 114 mg/dL 74-106 [facility] Comment on above: Fasting Glucose resu lt from 100 to 125 mg/dL suggests IMPAIRED HOMEOSTASIS per A.D.A. criteria. Neutrophils (Bld) [#/Vol] 1.8 10*3/uL 2.0-7.7 [facility] Neutrophils/100 WBC (Bld) 42.4 % 47-70 [facility] Potassium [Moles/Vol] 3.9 mmol/L 3.5-5.1 [facility] Protein [Mass/Vol] 6.7 g/dL 6.4-8.2 [facility] Sodium [Moles/Vol] 139 mmol/L 136-145 [facility] WBC (Bld) [#/Vol] 4.3 10*3/uL 4.4-11.0 [facility] Blood erythrocytes count (nu mber/volume)Ordered By: Alex Sommers on 08-12-2023 RBC (Bld) [#/Vol] 4.01 10*6/uL 4.2-5.4 [facility] Blood hemoglobin measurement (mass/volume)Ordered By: Alex Sommers on 08-12-2023 Hemoglobin (Bld) [Mass/Vol] 12.0 g/dL 12.0-15.0 [facility] Blood lymphocytes/100 leukoc ytesOrdered By: Alex Sommers on 08-12-2023 Lymphocytes/100 WBC (Bld) 44.0 % 19-41 [facility] Blood monocytes/100 leukocyt esOrdered By: Alex Sommers on 08-12-2023 Monocytes/100 WBC (Bld) 9.4 % 0-10 [facility] Blood platelet mean volumeOr dered By: Alex Sommers on 08-12-2023 Platelet mean volume (Bld) [Entitic vol] 10.5 fL 6.2-12.0 [facility] Determination of erythrocyte mean corpuscular volume (MCV)Ordered By: Alex Sommers on 08-12-2023 MCV (RBC) [Entitic vol] 90.0 fL 81-99 [facility] Erythrocyte sedimentation ra teOrdered By: Alex Sommers on 08-12-2023 ESR (Bld) [Velocity] 3 mm/h 0-30 [facility] Hematocrit Auto (Bld) [Volum e fraction]Ordered By: Alex Sommers on 08-12-2023 Hematocrit (Bld) [Volume fraction] 36.1 % 37-47 [facility] Laboratory - Chemistry and C hemistry - challengeOrdered By: Alex Sommers on 08-12-2023 ALP [Catalytic activity/Vol] 81 U/L 45-117 [facility] ALT [Catalytic activity/Vol] 22 U/L 13-56 [facility] CO2 [Moles/Vol] 25.0 mmol/L 21.0-32.0 [facility] Cobalamin (Vitamin B12) [Mass/Vol] 335 pg/mL 211-911 [facility] Free T4 [Mass/Vol] 0.84 ng/dL 0.76-1.46 [facility] Globulin (S) [Mass/Vol] 2.9 g/dL 2.2-4.2 [facility] Urea nitrogen/Creatinine [Mass ratio] 24.1 mg/mg 10-20 [facility] Laboratory - Hematology and Cell countsOrdered By: Alex Sommers on 08-12-2023 Erythrocyte distribution width (RBC) [Entitic vol] 43.3 fL 35.1-43.9 [facility] Erythrocyte distribution width (RBC) [Ratio] 13.2 % 11.6-14.6 [facility] Immature granulocytes/100 WBC (Bld) 0.200 % 0.0-0.9 [facility] Comment on above: IG% - Immature Granu locytes (promyelocytes, myelocytes and metamyelocytes) > 1% indicates that a LEFT SHIFT is Present. MCH (RBC) [Entitic mass] 29.9 pg 27.0-32.0 [facility] Nucleated RBC/100 WBC (Bld) [Ratio] 0 % 0-5 [facility] MCHC Auto (RBC) [Mass/Vol]Or dered By: Alex Sommers on 08-12-2023 MCHC (RBC) [Mass/Vol] 33.2 g/dL 32-36 [facility] No Panel InformationOrdered By: Alex Sommers on 08-12-2023 Estimated GFR (MDRD) Amer 90 mL/min >60 [facility] Comment on above: GFR Calc Estimated GFR (MDRD) Non-Af Amer 74 mL/min >60 [facility] Comment on above: Non- GFR Calc Thyroid Stimulating Hormone (TSH) 2.69 uIU/mL 0.358-3.74 [facility] Vitamin D 25-Hydroxy 31.4 ng/mL [facility] Comment on above: Vitamin D 25(OH) Sta tus Range Deficiency <20 ng/mL (50nmol/L) Insufficiency 20 - 30 ng/mL (50 - 75 nmol/L) Sufficiency 30 - 100 ng/mL (75 - 250 nmol/L) Toxicity >100 ng/mL (>250 nmol/L) Platelets bldOrdered By: Andre Sommers on 08-12-2023 Platelets (Bld) [#/Vol] 184 10*3/uL 150-450 [facility] Serum or plasma albumin josie urement (mass/volume)Ordered By: Alex Sommers on 08-12-2023 Albumin [Mass/Vol] 3.8 g/dL 3.2-5.0 [facility] Serum or plasma albumin/glob ulin mass ratioOrdered By: Alex Sommers on 08-12-2023 Albumin/Globulin [Mass ratio] 1.3 {ratio} 0.9-2.4 [facility] Serum or plasma calcium josie urement (mass/volume)Ordered By: Alex Sommers on 08-12-2023 Calcium [Mass/Vol] 8.8 mg/dL 8.5-10.1 [facility] Serum or plasma creatinine m easurement (mass/volume)Ordered By: Alex Sommers on 08-12-2023 Creatinine [Mass/Vol] 0.79 mg/dL 0.55-1.02 [facility] Comment on above: The validity of the calculated GFR & GFRAA in patients over 70 years has not been determined. Clinical correlation is essential. Serum or plasma urea nitroge n measurement (mass/volume)Ordered By: Alex Sommers on 08-12-2023 Urea nitrogen [Mass/Vol] 19 mg/dL 7-18 [facility] Thin prep Papanicolaou smear with manual screeningOrdered By: Alex Sommers on 08-12-2023 Thin prep Papanicolaou smear with manual screening 17 U/L 15-37 [facility] Thin prep Papanicolaou smear with manual screening 4 5-15 [facility] Whole blood hemoglobin A1c/t otal hemoglobin ratio (mass fraction)Ordered By: Alex oSmmers on 08-12-2023 HbA1c (Bld) [Mass fraction] 4.7 % 3.8-5.6 [facility] Comment on above: Normal < 5.7 % Predi abetic 5.7 - 6.4 % Diabetic >or= 6.5 % Please note range changes. Absolute lymphocyte countOrd ered By: Torrey Bialey on 05-26-2023 Lymphocytes Auto (Unsp spec) [#/Vol] 1.47 10*3/uL 0.83-4.51 [facility] Basophil percentageOrdered B y: Torrey Bailey on 05-26-2023 Basophils/100 WBC (Bld) 0.0 % 0-1 [facility] Chloride [Moles/Vol] 107 mmol/L 98-107 [facility] Eosinophils/100 WBC (Bld) 0.0 % 0-5 [facility] Glucose [Mass/Vol] 97 mg/dL 74-106 [facility] Neutrophils (Bld) [#/Vol] 7.9 10*3/uL 2.0-7.7 [facility] Neutrophils/100 WBC (Bld) 78.5 % 47-70 [facility] Potassium [Moles/Vol] 4.2 mmol/L 3.5-5.1 [facility] Sodium [Moles/Vol] 139 mmol/L 136-145 [facility] WBC (Bld) [#/Vol] 10.1 10*3/uL 4.4-11.0 [facility] Blood erythrocytes count (nu mber/volume)Ordered By: Torrey Bailey on 05-26-2023 RBC (Bld) [#/Vol] 4.13 10*6/uL 4.2-5.4 [facility] Blood hemoglobin measurement (mass/volume)Ordered By: Torrey Bailey on 05-26-2023 Hemoglobin (Bld) [Mass/Vol] 12.4 g/dL 12.0-15.0 [facility] Blood lymphocytes/100 leukoc ytesOrdered By: Torrey Bailey on 05-26-2023 Lymphocytes/100 WBC (Bld) 14.6 % 19-41 [facility] Blood monocytes/100 leukocyt esOrdered By: Torrey Bailey on 05-26-2023 Monocytes/100 WBC (Bld) 6.0 % 0-10 [facility] Blood platelet mean volumeOr dered By: Torrey Bailey on 05-26-2023 Platelet mean volume (Bld) [Entitic vol] 11.0 fL 6.2-12.0 [facility] Determination of erythrocyte mean corpuscular volume (MCV)Ordered By: Torrey Bailey on 05-26-2023 MCV (RBC) [Entitic vol] 91.8 fL 81-99 [facility] Hematocrit Auto (Bld) [Volum e fraction]Ordered By: Torrey Bailey on 05-26-2023 Hematocrit (Bld) [Volume fraction] 37.9 % 37-47 [facility] INR in Blood by Coagulation assayOrdered By: Torrey Bailey on 05-26-2023 INR Coag (Bld) [Relative time] 1.0 {INR} [facility] Laboratory - Chemistry and C hemistry - challengeOrdered By: Torrey Bailey on 05-26-2023 CO2 [Moles/Vol] 27.0 mmol/L 21.0-32.0 [facility] Urea nitrogen/Creatinine [Mass ratio] 33.4 mg/mg 10-20 [facility] Laboratory - CoagulationOrde red By: Torrey Bailey on 05-26-2023 aPTT Coag (Bld) [Time] 22.8 s 24.1-36.2 [facility] PT Coag (PPP) [Time] 13.5 s 11.7-14.9 [facility] Laboratory - Hematology and Cell countsOrdered By: Torrey Bailey on 05-26-2023 Erythrocyte distribution width (RBC) [Entitic vol] 43.6 fL 35.1-43.9 [facility] Erythrocyte distribution width (RBC) [Ratio] 13.1 % 11.6-14.6 [facility] Immature granulocytes/100 WBC (Bld) 0.900 % 0.0-0.9 [facility] Comment on above: IG% - Immature Granu locytes (promyelocytes, myelocytes and metamyelocytes) > 1% indicates that a LEFT SHIFT is Present. MCH (RBC) [Entitic mass] 30.0 pg 27.0-32.0 [facility] Nucleated RBC/100 WBC (Bld) [Ratio] 0 % 0-5 [facility] MCHC Auto (RBC) [Mass/Vol]Or dered By: Torrey aBiley on 05-26-2023 MCHC (RBC) [Mass/Vol] 32.7 g/dL 32-36 [facility] No Panel InformationOrdered By: Torrey Bailey on 05-26-2023 Estimated GFR (MDRD) Amer 80 mL/min >60 [facility] Comment on above: GFR Calc Estimated GFR (MDRD) Non-Af Amer 66 mL/min >60 [facility] Comment on above: Non- GFR Calc Platelets bldOrdered By: Efren Bailey on 05-26-2023 Platelets (Bld) [#/Vol] 179 10*3/uL 150-450 [facility] Serum or plasma calcium josie urement (mass/volume)Ordered By: Torrey Bailey on 05-26-2023 Calcium [Mass/Vol] 8.7 mg/dL 8.5-10.1 [facility] Serum or plasma creatinine m easurement (mass/volume)Ordered By: Torrey Bailey on 05-26-2023 Creatinine [Mass/Vol] 0.87 mg/dL 0.55-1.02 [facility] Comment on above: The validity of the calculated GFR & GFRAA in patients over 70 years has not been determined. Clinical correlation is essential. Serum or plasma urea nitroge n measurement (mass/volume)Ordered By: Torrey Lynn on 05-26-2023 Urea nitrogen [Mass/Vol] 29 mg/dL 7-18 [facility] Thin prep Papanicolaou smear with manual screeningOrdered By: Torrey Bailey on 05-26-2023 Thin prep Papanicolaou smear with manual screening 5 5-15 [facility] Absolute lymphocyte counton 10-05-2022 Lymphocytes Auto (Unsp spec) [#/Vol] 2.17 10*3/uL 0.83-4.51 [facility] Work Phone: Basophil percentageon 2021 Basophils/100 WBC (Bld) 1.0 % 0-1 [facility] Work Phone: Bilirubin [Mass/Vol] 0.40 mg/dL 0.20-1.00 [facility] Work Phone: Comment on above: For patients on eltr ombopag therapy, use of Dimension [place] TBIL is not recommended. Chloride [Moles/Vol] 108 mmol/L 98-107 [facility] Work Phone: Cholesterol [Mass/Vol] 177 mg/dL <200 [facility] Work Phone: Comment on above: <200 mg/dL Desirable 200-240 mg/dL Borderline >240 mg/dL High Risk Eosinophils/100 WBC (Bld) 3.2 % 0-5 [facility] Work Phone: Glucose [Mass/Vol] 94 mg/dL 74-106 [facility] Work Phone: Neutrophils (Bld) [#/Vol] 2.2 10*3/uL 2.0-7.7 [facility] Work Phone: Neutrophils/100 WBC (Bld) 43.3 % 47-70 [facility] Work Phone: Potassium [Moles/Vol] 4.1 mmol/L 3.5-5.1 [facility] Work Phone: Protein [Mass/Vol] 6.4 g/dL 6.4-8.2 [facility] Work Phone: Sodium [Moles/Vol] 142 mmol/L 136-145 [facility] Work Phone: Triglyceride [Mass/Vol] 188 mg/dL <199 [facility] Work Phone: Comment on above: The drugs N-Acetylcy steine and Metamizole may falsely depress this assay.Serum Triglycerides Reference Interval Normal <150 mg/dL Borderline high 150 - 199 mg/dL High 200 - 499 mg/dL Very High > or = 500 mg/dL WBC (Bld) [#/Vol] 5.0 10*3/uL 4.4-11.0 [facility] Work Phone: Blood erythrocytes count (nu mber/volume)on 10-05-2022 RBC (Bld) [#/Vol] 4.03 10*6/uL 4.2-5.4 [facility] Work Phone: Blood hemoglobin measurement (mass/volume)on 10-05-2022 Hemoglobin (Bld) [Mass/Vol] 12.2 g/dL 12.0-15.0 [facility] Work Phone: Blood lymphocytes/100 leukoc yteson 10-05-2022 Lymphocytes/100 WBC (Bld) 43.5 % 19-41 [facility] Work Phone: Blood monocytes/100 leukocyt eson 10-05-2022 Monocytes/100 WBC (Bld) 8.8 % 0-10 [facility] Work Phone: Blood platelet mean volumeon 10-05-2022 Platelet mean volume (Bld) [Entitic vol] 10.6 fL 6.2-12.0 [facility] Work Phone: [phone] Determination of erythrocyte mean corpuscular volume (MCV)on 10-05-2022 MCV (RBC) [Entitic vol] 89.6 fL 81-99 [facility] Work Phone: [phone] Hematocrit Auto (Bld) [Volum e fraction]on 10-05-2022 Hematocrit (Bld) [Volume fraction] 36.1 % 37-47 [facility] Work Phone: [phone] Laboratory - Chemistry and C hemistry - challengeon 10-05-2022 ALP [Catalytic activity/Vol] 80 U/L 45-117 [facility] Work Phone: [phone] ALT [Catalytic activity/Vol] 22 U/L 13-56 [facility] Work Phone: [phone] CO2 [Moles/Vol] 26.0 mmol/L 21.0-32.0 [facility] Work Phone: [phone] Globulin (S) [Mass/Vol] 2.7 g/dL 2.2-4.2 [facility] Work Phone: [phone] Urea nitrogen/Creatinine [Mass ratio] 31.0 mg/mg 10-20 [facility] Work Phone: [phone] Laboratory - Hematology and Cell countson 10-05-2022 Erythrocyte distribution width (RBC) [Entitic vol] 43.9 fL 35.1-43.9 [facility] Work Phone: [phone] Erythrocyte distribution width (RBC) [Ratio] 13.2 % 11.6-14.6 [facility] Work Phone: [phone] Immature granulocytes/100 WBC (Bld) 0.200 % 0.0-0.9 [facility] Work Phone: [phone] Comment on above: IG% - Immature Granu locytes (promyelocytes, myelocytes and metamyelocytes) > 1% indicates that a LEFT SHIFT is Present. MCH (RBC) [Entitic mass] 30.3 pg 27.0-32.0 [facility] Work Phone: Nucleated RBC/100 WBC (Bld) [Ratio] 0 % 0-5 [facility] Work Phone: MCHC Auto (RBC) [Mass/Vol]on 10-05-2022 MCHC (RBC) [Mass/Vol] 33.8 g/dL 32-36 [facility] Work Phone: No Panel Informationon 10-05 Estimated GFR (MDRD) Amer 96 mL/min >60 [facility] Work Phone: Comment on above: GFR Calc Estimated GFR (MDRD) Non-Af Amer 80 mL/min >60 [facility] Work Phone: Comment on above: Non- GFR Calc Vitamin D 25-Hydroxy 26.0 ng/mL [facility] Work Phone: Comment on above: Vitamin D 25(OH) Sta tus Range Deficiency <20 ng/mL (50nmol/L) Insufficiency 20 - 30 ng/mL (50 - 75 nmol/L) Sufficiency 30 - 100 ng/mL (75 - 250 nmol/L) Toxicity >100 ng/mL (>250 nmol/L) Platelets bldon 10-05-2022 Platelets (Bld) [#/Vol] 182 10*3/uL 150-450 [facility] Work Phone: [phone] Serum or plasma albumin josie urement (mass/volume)on 10-05-2022 Albumin [Mass/Vol] 3.7 g/dL 3.2-5.0 [facility] Work Phone: [phone] Serum or plasma albumin/glob ulin mass ratioon 10-05-2022 Albumin/Globulin [Mass ratio] 1.4 {ratio} 0.9-2.4 [facility] Work Phone: [phone] Serum or plasma calcium josie urement (mass/volume)on 10-05-2022 Calcium [Mass/Vol] 8.5 mg/dL 8.5-10.1 [facility] Work Phone: [phone] Serum or plasma cholesterol in HDL measurement (mass/volume)on 10-05-2022 Cholesterol in HDL [Mass/Vol] 72 mg/dL >40 [facility] Work Phone: Comment on above: The drugs N-Acetylcy steine and Metamizole may falsely depress this assay. Reference Range HDL <40 mg/dL Low HDL Cholesterol HDL >or= 60 mg/dL High HDL Cholesterol Serum or plasma cholesterol in VLDL measurement (mass/volume)on 10-05-2022 Cholesterol in VLDL [Mass/Vol] 38 mg/dL 5-40 [facility] Work Phone: Serum or plasma creatinine m easurement (mass/volume)on 10-05-2022 Creatinine [Mass/Vol] 0.74 mg/dL 0.55-1.02 [facility] Work Phone: Comment on above: The validity of the calculated GFR & GFRAA in patients over 70 years has not been determined. Clinical correlation is essential. Serum or plasma low density lipoprotein (LDL) cholesterol measurement (mass/volume)on 10-05-2022 Cholesterol in LDL [Mass/Vol] 67 mg/dL 0-130 [facility] Work Phone: [phone] Serum or plasma urea nitroge n measurement (mass/volume)on 10-05-2022 Urea nitrogen [Mass/Vol] 23 mg/dL 7-18 [facility] Work Phone: Thin prep Papanicolaou smear with manual screeningon 10-05-2022 Thin prep Papanicolaou smear with manual screening 19 U/L 15-37 [facility] Work Phone: [phone] Thin prep Papanicolaou smear with manual screening 8 5-15 [facility] Work Phone: [phone] Absolute lymphocyte counton 02-18-2022 Lymphocytes Auto (Unsp spec) [#/Vol] 1.82 10*3/uL 0.83-4.51 [facility] Work Phone: Basophil percentageon 2021 Basophils/100 WBC (Bld) 0.7 % 0-1 [facility] Work Phone: [phone] Bilirubin [Mass/Vol] 0.60 mg/dL 0.20-1.00 [facility] Work Phone: Comment on above: For patients on eltr ombopag therapy, use of Dimension [place] TBIL is not recommended. Chloride [Moles/Vol] 109 mmol/L 98-107 [facility] Work Phone: Eosinophils/100 WBC (Bld) 1.3 % 0-5 [facility] Work Phone: Glucose [Mass/Vol] 95 mg/dL 74-106 [facility] Work Phone: Neutrophils (Bld) [#/Vol] 3.0 10*3/uL 2.0-7.7 [facility] Work Phone: Neutrophils/100 WBC (Bld) 56.1 % 47-70 [facility] Work Phone: Potassium [Moles/Vol] 4.3 mmol/L 3.5-5.1 [facility] Work Phone: Protein [Mass/Vol] 6.9 g/dL 6.4-8.2 [facility] Work Phone: Sodium [Moles/Vol] 140 mmol/L 136-145 [facility] Work Phone: WBC (Bld) [#/Vol] 5.4 10*3/uL 4.4-11.0 [facility] Work Phone: Blood erythrocytes count (nu mber/volume)on 02-18-2022 RBC (Bld) [#/Vol] 4.01 10*6/uL 4.2-5.4 [facility] Work Phone: Blood hemoglobin measurement (mass/volume)on 02-18-2022 Hemoglobin (Bld) [Mass/Vol] 12.0 g/dL 12.0-15.0 [facility] Work Phone: Blood lymphocytes/100 leukoc yteson 02-18-2022 Lymphocytes/100 WBC (Bld) 33.7 % 19-41 [facility] Work Phone: Blood monocytes/100 leukocyt eson 02-18-2022 Monocytes/100 WBC (Bld) 7.8 % 0-10 [facility] Work Phone: Blood platelet mean volumeon 02-18-2022 Platelet mean volume (Bld) [Entitic vol] 11.0 fL 6.2-12.0 [facility] Work Phone: [phone] Determination of erythrocyte mean corpuscular volume (MCV)on 02-18-2022 MCV (RBC) [Entitic vol] 90.0 fL 81-99 [facility] Work Phone: [phone] Hematocrit Auto (Bld) [Volum e fraction]on 02-18-2022 Hematocrit (Bld) [Volume fraction] 36.1 % 37-47 [facility] Work Phone: Laboratory - Chemistry and C hemistry - challengeon 02-18-2022 ALP [Catalytic activity/Vol] 82 U/L 45-117 [facility] Work Phone: [phone] ALT [Catalytic activity/Vol] 18 U/L 13-56 [facility] Work Phone: [phone] CO2 [Moles/Vol] 24.0 mmol/L 21.0-32.0 [facility] Work Phone: Globulin (S) [Mass/Vol] 2.8 g/dL 2.2-4.2 [facility] Work Phone: [phone] Urea nitrogen/Creatinine [Mass ratio] 25.7 mg/mg 10-20 [facility] Work Phone: Laboratory - Hematology and Cell countson 02-18-2022 Erythrocyte distribution width (RBC) [Entitic vol] 44.4 fL 35.1-43.9 [facility] Work Phone: [phone] Erythrocyte distribution width (RBC) [Ratio] 13.4 % 11.6-14.6 [facility] Work Phone: [phone] Immature granulocytes/100 WBC (Bld) 0.400 % 0.0-0.9 [facility] Work Phone: [phone] Comment on above: IG% - Immature Granu locytes (promyelocytes, myelocytes and metamyelocytes) > 1% indicates that a LEFT SHIFT is Present. MCH (RBC) [Entitic mass] 29.9 pg 27.0-32.0 [facility] Work Phone: Nucleated RBC/100 WBC (Bld) [Ratio] 0 % 0-5 [facility] Work Phone: MCHC Auto (RBC) [Mass/Vol]on 02-18-2022 MCHC (RBC) [Mass/Vol] 33.2 g/dL 32-36 [facility] Work Phone: No Panel Informationon 02-18 Estimated GFR (MDRD) Amer 103 mL/min >60 [facility] Work Phone: Comment on above: GFR Calc Estimated GFR (MDRD) Non-Af Amer 85 mL/min >60 [facility] Work Phone: Comment on above: Non- GFR Calc Platelets bldon 02-18-2022 Platelets (Bld) [#/Vol] 205 10*3/uL 150-450 [facility] Work Phone: Serum or plasma albumin josie urement (mass/volume)on 02-18-2022 Albumin [Mass/Vol] 4.1 g/dL 3.2-5.0 [facility] Work Phone: Serum or plasma albumin/glob ulin mass ratioon 02-18-2022 Albumin/Globulin [Mass ratio] 1.5 {ratio} 0.9-2.4 [facility] Work Phone: [phone] Serum or plasma calcium josie urement (mass/volume)on 02-18-2022 Calcium [Mass/Vol] 9.6 mg/dL 8.5-10.1 [facility] Work Phone: [phone] Serum or plasma creatinine m easurement (mass/volume)on 02-18-2022 Creatinine [Mass/Vol] 0.70 mg/dL 0.55-1.02 [facility] Work Phone: Comment on above: The validity of the calculated GFR & GFRAA in patients over 70 years has not been determined. Clinical correlation is essential. Serum or plasma urea nitroge n measurement (mass/volume)on 02-18-2022 Urea nitrogen [Mass/Vol] 18 mg/dL 7-18 [facility] Work Phone: Thin prep Papanicolaou smear with manual screeningon 02-18-2022 Thin prep Papanicolaou smear with manual screening 15 U/L 15- [facility] Work Phone: Thin prep Papanicolaou smear with manual screening 7 5- [facility] Work Phone: CNPNon 07-15-2021 CNPN Telephone (FL2E) FRED MON Kaci ([id number]) 1940 F Date Time Provider Department 07/15/21 [facility] During your visit today, we recorded the [...] has travel plans. Patient will go to [place] for 3 months in November Patient is [...] update on misplaced medical records. Merly Nikole Cole 07/22/2021 11:48 AM Signed I called patient [...] would give her a call back. Merly Nikole Cole Allergies As of Date: 07/15/2021 (No Known [...] Of Date: 07/15/2021 (None) Encounter Status:Closed by NIKOLE COLE MERLY on 07/22/21 [facility] CNOVon 04-30-2021 CNOV Office Visit (ORMDNA ) FRED MON ([id number]) 1940 F Date Time Provider Department 04/30/21 [...] with Fred Mon, continued non-operative management of general matcher bracing and Voltaren gel was chosen. The [...] and healthy. The patient has been ordered: Cloth Presser brace CONSULTS: Patient does not require consults [...] with log (more content not included)... Normal [facility] Vital Signs Date Time Vital Sign Value Performing Clinician Facility 07-07-2025 07:02-0400 Body temperature 97.7 [degF] Dr. Alex Sommers MD Work Phone: [facility] 07-07-2025 07:02-0400 Diastolic blood pressure 74 mm[Hg] Dr. Alex Sommers MD Work Phone: [phone] [place] [address] 07-07-2025 07:02-0400 Heart rate 67 /min Dr. Alex Sommers MD Work Phone: [phone] [place] [address] 07-07-2025 07:02-0400 Respiratory rate 16 /min Dr. Alex Sommers MD Work Phone: [facility] 07-07-2025 07:02-0400 SaO2% (BldA) [Mass fraction] 100 % Dr. Alex Sommers MD Work Phone: [facility] 07-07-2025 07:02-0400 Systolic blood pressure 173 mm[Hg] Dr. Alex Sommers MD Work Phone: [facility] 07-07-2025 05:34-0400 Body height 160.[address] Alex Sommers MD Work Phone: [facility] 07-07-2025 05:34-0400 Body mass index (BMI) [Ratio] 34.4 kg/m2 Dr. Alex Sommers MD Work Phone: [facility] 07-07-2025 05:34-0400 Body weight 88.[address] Alex Sommers MD Work Phone: [facility] 01-04-2024 08:37-0500 Body temperature 98.3 [degF] Dr. Alex Sommers Work Phone: [facility] 01-04-2024 08:37-0500 Diastolic blood pressure 82 mm[Hg] Dr. Alex Sommers Work Phone: [facility] 01-04-2024 08:37-0500 Heart rate 82 /min Dr. Alex Sommers Work Phone: [facility] 01-04-2024 08:37-0500 Respiratory rate 15 /min Dr. Alex Sommers Work Phone: [facility] 01-04-2024 08:37-0500 SaO2% (BldA) [Mass fraction] 96 % Dr. Alex Sommers Work Phone: [facility] 01-04-2024 08:37-0500 Systolic blood pressure 146 mm[Hg] Dr. Alex Sommers Work Phone: [facility] 01-03-2024 13:15-0500 Body mass index (BMI) [Ratio] 31.2 kg/m2 Dr. Alex Sommers Work Phone: [facility] 01-03-2024 13:15-0500 Body weight 85.[address] Alex Sommers Work Phone: [facility] 12-28-2023 13:16-0500 Body height 165.[address] Alex Sommers Work Phone: [facility] 12-28-2023 13:16-0500 Body weight 85.[address] Alex Sommers Work Phone: [facility] 12-28-2023 12:48-0500 Body temperature 96.8 [degF] Dr. Alex Sommers Work Phone: [facility] 12-28-2023 12:48-0500 Diastolic blood pressure 64 mm[Hg] Dr. Alex Sommers Work Phone: [facility] 12-28-2023 12:48-0500 Heart rate 68 /min Dr. Alex Sommers Work Phone: [facility] 12-28-2023 12:48-0500 Respiratory rate 18 /min Dr. Alex Sommers Work Phone: [facility] 12-28-2023 12:48-0500 SaO2% (BldA) [Mass fraction] 98 % Dr. Alex Sommers Work Phone: [facility] 12-28-2023 12:48-0500 Systolic blood pressure 136 mm[Hg] Dr. Alex Sommers Work Phone: [facility] 12-27-2023 11:38-0500 Body mass index (BMI) [Ratio] 31.2 kg/m2 Dr. Alex Sommers Work Phone: [facility] 12-23-2023 12:13-0500 Body temperature 98.7 [degF] Dr. Alex Sommers Work Phone: [facility] 12-23-2023 09:30-0500 Diastolic blood pressure 73 mm[Hg] Dr. Alex Sommers Work Phone: [facility] 12-23-2023 09:30-0500 Heart rate 69 /min Dr. Alex Sommers Work Phone: [facility] 12-23-2023 09:30-0500 Respiratory rate 16 /min Dr. Alex Sommers Work Phone: [facility] 12-23-2023 09:30-0500 SaO2% (BldA) [Mass fraction] 99 % Dr. Alex Sommers Work Phone: [facility] 12-23-2023 09:30-0500 Systolic blood pressure 152 mm[Hg] Dr. Alex Sommers Work Phone: [facility] 12-21-2023 12:46-0500 Inhaled oxygen flow rate 2 L/min Dr. Alex Sommers Work Phone: [facility] 12-21-2023 12:38-0500 Body height 165.[address] Alex Sommers Work Phone: [facility] 12-21-2023 12:38-0500 Body mass index (BMI) [Ratio] 31.8 kg/m2 Dr. Alex Sommers Work Phone: [facility] 12-21-2023 12:38-0500 Body weight [address] Alex Sommers Work Phone: [facility] 09-21-2023 14:24-0500 Body temperature 97.88 [degF] DR JOSE RAMON ZULUAGA MD [facility] 09-21-2023 14:24-0500 Diastolic Blood Pressure Non-Invasive 56 mm[Hg] DR JOSE RAMON ZULUAGA MD [facility] 09-21-2023 14:24-0500 Heart rate 66 /min DR JOSE RAMON ZULUAGA MD [facility] 09-21-2023 14:24-0500 Respiratory rate 20 /min DR JOSE RAMON ZULUAGA MD [facility] 09-21-2023 14:24-0500 Systolic Blood Pressure Non-Invasive 157 mm[Hg] DR JOSE RAMON ZULUAGA MD [facility] 09-21-2023 11:05-0500 Diastolic Blood Pressure Non-Invasive 67 mm[Hg] DR JOSE RAMON ZULUAGA MD [facility] 09-21-2023 11:05-0500 Systolic Blood Pressure Non-Invasive 158 mm[Hg] DR JOSE RAMON ZULUAGA MD [facility] 09-21-2023 10:31-0500 Body temperature 97.88 [degF] DR JOSE RAMON ZULUAGA MD [facility] 09-21-2023 10:31-0500 Diastolic Blood Pressure Non-Invasive 100 mm[Hg] DR JOSE RAMON ZULUAGA MD [facility] 09-21-2023 10:31-0500 Heart rate 75 /min DR JOSE RAMON ZULUAGA MD [facility] 09-21-2023 10:31-0500 Respiratory rate 20 /min DR JOSE RAMON ZULUAGA MD [facility] 09-21-2023 10:31-0500 Systolic Blood Pressure Non-Invasive 159 mm[Hg] DR JOSE RAMON ZULUAGA MD [facility] 09-21-2023 07:14-0500 Body temperature 97.88 [degF] DR JOSE RAMON ZULUAGA MD [facility] 09-21-2023 07:14-0500 Heart rate 68 /min DR JOSE RAMON ZULUAGA MD [facility] 09-21-2023 07:14-0500 Respiratory rate 20 /min DR JOSE RAMON ZULUAGA MD [facility] 09-20-2023 23:08-0500 Heart rate 67 /min DR JOSE RAMON ZULUAGA MD [facility] 09-20-2023 14:22-0500 Body temperature 96.62 [degF] DR JOSE RAMON ZULUAGA MD [facility] 09-20-2023 14:22-0500 Heart rate 58 /min DR JOSE RAOMN ZULUAGA MD [facility] 09-20-2023 13:47-0500 Body height 165.[address] JOSE RAMON ZULUAGA MD [facility] 09-20-2023 13:47-0500 Body weight 87.[address] JOSE RAMON ZULUAGA MD [facility] 09-20-2023 13:47-0500 Body weight 32.25 kg/m2 DR JOSE RAMON ZULUAGA MD [facility] 09-20-2023 13:38-0500 Body temperature 96.62 [degF] DR JOSE RAMON ZULUAGA MD [facility] 09-20-2023 13:38-0500 Heart rate 54 /min DR JOSE RAMON ZULUAGA MD [facility] 09-20-2023 12:25-0500 Body temperature 97.16 [degF] DR JOSE RAMON ZULUAGA MD [facility] 09-20-2023 12:20-0500 Respiratory Rate - Anes 21 br/min DR JOSE RAMON ZULUAGA MD [facility] 09-20-2023 12:15-0500 Respiratory Rate - Anes 25 br/min DR JOSE RAMON ZULUAGA MD [facility] 09-20-2023 12:10-0500 Respiratory Rate - Anes 26 br/min DR JOSE RAMON ZULUAGA MD [facility] 09-20-2023 10:30-0500 Heart rate 59 /min DR JOSE RAMON ZULUAGA MD [facility] 09-20-2023 08:52-0500 Body height 165.[address] JOSE RAMON ZULUAGA MD [facility] 09-20-2023 08:52-0500 Body temperature 97.7 [degF] DR JOSE RAMON ZULUAGA MD [facility] 09-20-2023 08:52-0500 Body weight 87.[address] JOSE RAMON ZULUAGA MD [facility] 09-20-2023 08:52-0500 Heart rate 65 /min DR JOSE RAMON ZULUAGA MD [facility] 08-26-2023 11:55-0400 Blood Pressure Cuff Size DR JOSE RAMON ZULUAGA MD [facility] 08-26-2023 11:55-[address] JOSE RAMON ZULUAGA MD [facility] 08-26-2023 11:55-[address] JOSE RAMON Sol [facility] 08-26-2023 11:55-0400 Body height 165.[address] JOSE RAMON ZULUAGA MD [facility] 08-26-2023 11:55-0400 Body weight 87.[address] JOSE RAMON ZULUAGA MD [facility] 08-26-2023 11:55-0400 Body weight 32.25 kg/m2 DR JOSE RAMON ZULUAGA MD [facility] 08-26-2023 11:55-0400 Diastolic Blood Pressure Non-Invasive [address] JOSE RAMON ZULUAGA MD [facility] 08-26-2023 11:55-0400 Heart rate 64 /min DR JOSE RAMON ZULUAGA MD [facility] 08-26-2023 11:55-0400 Systolic Blood Pressure Non-Invasive [address] JOSE RAMON ZULUAGA MD [facility] 05-26-2023 16:15-0400 Diastolic blood pressure 109 mm[Hg] [facility] 05-26-2023 16:15-0400 Heart rate 55 /min [facility] 05-26-2023 16:15-0400 Respiratory rate 18 /min [facility] 05-26-2023 16:15-0400 Systolic blood pressure 150 mm[Hg] [facility] 05-26-2023 14:08-0400 SaO2% (BldA) [Mass fraction] 96 % [facility] 05-26-2023 13:59-0400 Body height 165.1 cm [facility] 05-26-2023 13:59-0400 Body temperature 97 [degF] [facility] 05-24-2023 21:07-0400 Body height 165.1 cm [facility] 05-24-2023 21:07-0400 Body mass index (BMI) [Ratio] 33.3 kg/m2 [facility] 05-24-2023 21:07-0400 Body temperature 97.8 [degF] [facility] 05-24-2023 21:07-0400 Body weight 90.8 kg [facility] 05-24-2023 21:07-0400 Diastolic blood pressure 96 mm[Hg] [facility] 05-24-2023 21:07-0400 Heart rate 93 /min [facility] 05-24-2023 21:07-0400 Respiratory rate 16 /min [facility] 05-24-2023 21:07-0400 SaO2% (BldA) [Mass fraction] 98 % [facility] 05-24-2023 21:07-0400 Systolic blood pressure 227 mm[Hg] [facility] 06-23-2022 09:23-0400 Body height 165.[address] Alex Sommers Work Phone: [facility] Work Phone: 06-23-2022 09:22-0400 Body mass index (BMI) [Ratio] 31.3 kg/m2 Dr. Alex Sommers Work Phone: [facility] Work Phone: 06-23-2022 09:22-0400 Body weight 85.[address] Alex Sommers Work Phone: [facility] Work Phone: 06-23-2022 09:22-0400 Diastolic blood pressure 83 mm[Hg] Dr. Alex Sommers Work Phone: [facility] Work Phone: 06-23-2022 09:22-0400 Systolic blood pressure 167 mm[Hg] Dr. Alex Sommers Work Phone: [facility] Work Phone: Encounters Encounter Date Encounter Type Care Provider Facility Start: 08-30-2025 ambulatory Alex Sommers Facilit y:[facility] Start: 08-15-2025 ambulatory Alex Sommers Facilit y:[facility] Start: 08-15-2025 End: 08-15-2025 ambulatory Adrien Smart Facility:[facility] Start: 07-19-2025 End: 07-19-[address] Alex Sommers MD Work Phone: -Cardiovascular Services Start: 07-19-2025 End: 07-19-[address] Alex Sommers MD -Cardiovascular Services Work Phone: Start: 07-19-2025 End: 07-19-2025 ambulatory Alex Sommers Facility:[facility] Start: 07-07-2025 End: 07-07-2025 Emergency department patient visit Dr. Alex Sommers MD Work Phone: -Emergency Department Work Phone: Start: 07-04-2025 End: 07-04-[address] Alex Sommers MD Work Phone: -Laboratory [facility] Start: 07-04-2025 End: 07-04-[address] Alex Sommers MD -[facility] Start: 07-04-2025 End: 07-04-2025 ambulatory Alex Sommers Facility:[facility] Start: 06-29-2025 End: 06-29-2025 Transcribe Orders Alex Sommers MD Work Phone: [facility] Comment on above: Dementia, unspecifie d dementia severity, unspecified dementia type, unspecified whether behavioral, psychotic, or mood disturbance or anxiety (HCC) (Primary Dx) Start: 06-13-2025 End: 06-13-[address] Alex Sommers MD Work Phone: -Outpatient Breast Imaging Start: 06-13-2025 End: 06-13-[address] Alex Sommers MD -Outpatient Breast Imaging Work Phone: Start: 06-13-2025 End: 06-13-2025 ambulatory Alex Sommers Facility:[facility] Start: 06-10-2025 End: 06-10-[address] Alex Sommers MD Work Phone: -Outpatient Breast Imaging Start: 06-10-2025 End: 06-10-[address] Alex Sommers MD -Outpatient Breast Imaging Work Phone: Start: 06-10-2025 End: 06-10-2025 ambulatory Alex Sommers Facility:[facility] Start: 02-27-2025 End: 02-27-[address] Alex Sommers MD -[facility] Start: 02-27-2025 End: 02-27-2025 ambulatory Alex Sommers Facility:[facility] Start: 10-09-2024 ambulatory Alex Sommers Facilit y:[facility] Start: 12-23-2023 Non-patient / Non-visit Dr. Ina Sommers Work Phone: [facility] Start: 12-23-2023 End: 12-23-[address] Alex Sommers Work Phone: [facility] Work Phone: Start: 12-23-2023 End: 12-23-[address] Alex Sommers Work Phone: [facility]-Cardiovascular Services Work Phone: Start: 12-23-2023 End: 01-04-2024 Evaluation and management of inpatient Dr. Alex Sommers Work Phone: [facility]-Transitional Care Unit Start: 12-22-2023 Non-patient / Non-visit Dr. Ina Sommers Work Phone: [facility] Work Phone: Start: 12-21-2023 End: 12-23-2023 Evaluation and management of inpatient Dr. Alex Sommers Work Phone: [facility]-Medical Surgical 3 Work Phone: Start: 12-08-2023 End: 12-08-2023 Non-patient / Non-visit Dr. Alex Sommers Work Phone: [facility] Work Phone: Start: 11-30-2023 End: 11-30-2023 ambulatory [facility] Work Phone: Start: 11-30-2023 End: 11-30-2023 Patient encounter procedure [facility] Work Phone: Start: 11-03-[address] JOSE RAMON ALTAMIRANO MD Facility:B Start: 11-02-[address] JOSE RAMON ALTAMIRANO MD Facility:[facility] Start: 10-27-2023 End: 10-27-2023 ambulatory [facility] Work Phone: Start: 10-27-2023 End: 10-27-2023 Patient encounter procedure [facility]-Cardiovascular Services Work Phone: Start: 10-14-2023 End: 10-14-2023 ambulatory [facility] Work Phone: Start: 10-14-2023 End: 10-14-2023 Patient encounter procedure [facility] Work Phone: Start: 09-20-2023 End: 09-21-2023 ambulatory ALEX SOMMERS MD Facility:[facility] Start: 09-20-2023 End: 09-21-[address] JOSE RAMON ZULUAGA MD [facility] Start: 08-26-2023 End: 08-27-[address] JOSE RAMON ZULUAGA MD Facility:[facility] Start: 08-26-2023 End: 08-26-[address] JOSE RAMON ZULUAGA MD [facility] Start: 08-26-2023 End: 08-26-[address] JOSE RAMON ZULUAGA MD [facility] Start: 08-12-2023 End: 08-12-2023 Patient encounter procedure [facility] Start: 07-18-2023 End: 07-18-2023 ambulatory [facility] Work Phone: Start: 07-18-2023 End: 07-18-2023 Discharged Recurring [facility]-Physical Therapy Work Phone: Start: 07-04-2023 End: 07-04-2023 ambulatory [facility] Work Phone: Start: 07-04-2023 End: 07-04-2023 Patient encounter procedure [facility]-Outpatient Breast Imaging Work Phone: Start: 05-26-2023 End: 05-26-2023 Emergency department patient visit [facility]-Emergency Department Work Phone: Start: 05-24-2023 End: 05-24-2023 Emergency department patient visit [facility]-Emergency Department Work Phone: Start: 10-26-2022 Non-patient / Non-visit Dr. Ina Sommers Work Phone: [facility] Start: 10-26-2022 End: 10-26-[address] Alex Sommers Work Phone: [facility] Work Phone: Start: 10-26-2022 End: 10-26-[address] [facility] Start: 10-06-2022 Non-patient / Non-visit Dr. Ina Sommers Work Phone: [facility] Start: 10-06-2022 End: 10-06-[address] Alex Sommers Work Phone: [facility] Work Phone: Start: 10-06-2022 End: 10-06-[address] Alex Sommers [facility] Start: 10-06-2022 Non-patient / Non-visit Dr. Ina Sommers Work Phone: [facility] Start: 10-05-2022 End: 10-05-[address] Alex Sommers Work Phone: [facility] Work Phone: Start: 10-05-2022 End: 10-05-[address] Alex Sommers Work Phone: [facility] Start: 07-02-2022 End: 07-02-[address] Alex Sommers Work Phone: [facility] Work Phone: Start: 07-02-2022 End: 07-02-[address] Alex Sommers Work Phone: [facility] Start: 06-30-2022 End: 06-30-[address] Alex Sommers Work Phone: [facility] Work Phone: Start: 06-30-2022 End: 06-30-[address] Alex Sommers Work Phone: [facility]-Outpatient Breast Imaging Start: 06-23-2022 End: 06-23-[address] Alex Sommers Work Phone: [facility] Start: 04-01-2022 End: 04-01-2022 Patient encounter procedure [facility]-Outpatient Bone Densitometry Start: 02-18-2022 End: 02-18-2022 Patient encounter procedure [facility]-Laboratory[facility] Start: 11-09-2021 End: 11-09-2021 Discharged Recurring [facility]-Physical Therapy Start: 11-02-2021 Patient encounter procedure [facility]-Radiology, [place] Procedures Date Procedure Procedure Detail Performing Clinician Start: 07-07-2025 SARS-CoV-2, Influenz a & RSV (PCR) Dr. Alex Sommers MD Work Phone: Start: 07-07-2025 Urnls dip stick/tabl et reagent auto microscopy Dr. Alex Sommers MD Work Phone: Start: 07-07-2025 X-ray of chest, PA a nd lateral views Dr. Alex Sommers MD Work Phone: Start: 07-07-[address] Alex Sommers MD Work Phone: Start: 07-04-2025 Urnls dip stick/tabl et reagent auto microscopy Dr. Alex Sommers MD Work Phone: Start: 07-04-2025 Vitamin D, 25-hydrox y measurement Dr. Alex Sommers MD Work Phone: Comment on above: Vitamin D StatusDefi ciency: <20 ng/mL (50nmol/L)Insufficiency: 20-30 ng/mL (50-75 nmol/L)Sufficiency: 30-100 ng/mL (75-250 nmol/L)Toxicity: >100 ng/mL (>250 nmol/L) Start: 06-13-[address] Alex appiah MD Work Phone: Start: 06-13-[address] Alex Sommers MD Work Phone: Start: 06-10-2025 Screening mammography Sweta Sommers MD Work Phone: Start: 02-27-2025 Vitamin D, 25-hydrox y measurement Dr. Alex Sommers MD Work Phone: Comment on above: Vitamin D StatusDefi ciency: <20 ng/mL (50nmol/L)Insufficiency: 20-30 ng/mL (50-75 nmol/L)Sufficiency: 30-100 ng/mL (75-250 nmol/L)Toxicity: >100 ng/mL (>250 nmol/L) Start: 12-24-[address] Alex Sommers Work Phone: Start: 12-24-[address] Alex Sommers Work Phone: Start: 12-23-2023 Plain chest X-ray Dr. Jarad Sommers Work Phone: Start: 12-23-2023 Plain X-ray abdomen Dr. Alex Sommers Work Phone: Start: 12-21-2023 Radiologic examinati on of knee Dr. Alex Sommers Work Phone: Start: 12-21-2023 Total Knee Replaceme nt Robotic Arm Anali (Left) Dr. Alex Sommers Work Phone: Start: 12-08-2023 Nasal Screen MRSA/MSSA Dr. Alex Sommers Work Phone: Start: 11-30-2023 MRI of lower extremity Start: 07-04-2023 Screening mammography Start: 05-26-2023 CT of head without contrast Start: 05-24-2023 CT cervical spine wi thout contrast Start: 05-24-2023 CT of head without contrast Start: 10-26-2022 Cardiovascular stres s test using pharmacologic stress agent Dr. Alex Sommers Work Phone: Start: 07-02-2022 Plain chest X-ray Dr. Jarad Sommers Work Phone: Start: 06-30-2022 Screening mammography Sweta Sommers Work Phone: Start: 04-01-2022 Dual energy X-ray absorptiometry Start: 11-02-2021 X-ray of cervical spine Arthroscopy of knee DR TONIE ZULUAGA MD Comment on above: LEFT Plan of Treatment Date Care Activity Detail Author Start: 07-07-2025 [facility] Start: 01-21-2024 Blood chemistry [facility] Start: 01-14-2024 Blood chemistry [facility] Start: 01-07-2024 Blood chemistry [facility] Start: 01-04-2024 Patient discharge [facility] Start: 01-02-2024 [facility] Start: 12-31-2023 Blood chemistry [facility] Start: 12-30-2023 Referral to service [facility] Start: 12-26-2023 [facility] Start: 12-25-2023 Recommendation to tanya abrams with treatment [facility] Start: 12-25-2023 Speech therapy assessment [facility] Start: 12-24-2023 [facility] Start: 12-24-2023 Developing a treatment plan [facility] Start: 12-24-2023 Development of care plan [facility] Start: 12-24-2023 Application of device [facility] Start: 12-23-2023 [facility] Start: 12-23-2023 Verification routine [facility] Start: 12-23-2023 Admission procedure [facility] Start: 12-23-2023 Measuring intake and output [facility] Start: 12-23-2023 Patient referral to dietitian [facility] Start: 12-23-2023 Referral to occupati onal therapist [facility] Start: 12-23-2023 Referral to service [facility] Start: 12-23-2023 Vital signs measurements [facility] Start: 12-23-2023 End: 12-23-2023 [facility] Start: 12-23-2023 Patient discharge [facility] Start: 12-21-2023 Following clinical p athway protocol [facility] Start: 12-21-2023 Application of inter mittent pneumatic compression device [facility] Start: 12-21-2023 Provision of overbed trapeze [facility] Start: 12-21-2023 Ambulation therapy management [facility] Start: 12-21-2023 Application of device [facility] Start: 12-21-2023 Application of elast ic bandage [facility] Start: 12-21-2023 Assessment of risk o f venous thromboembolism [facility] Start: 12-21-2023 Catheterization of vein [facility] Start: 12-21-2023 Exercises [facility] Start: 12-21-2023 Following clinical p athway protocol [facility] Start: 12-21-2023 Introduction of urin bety catheter [facility] Start: 12-21-2023 Measuring intake and output [facility] Start: 12-21-2023 Neurovascular assessment [facility] Start: 12-21-2023 Patient education [facility] Start: 12-21-2023 Procedure discontinued [facility] Start: 12-21-2023 Provision of activit y privileges [facility] Start: 12-21-2023 Recommendation to co jose alberto with treatment [facility] Start: 12-21-2023 Referral to occupati onal therapist [facility] Start: 12-21-2023 Referral to service [facility] Start: 12-21-2023 Vital signs measurements [facility] Start: 12-21-2023 Wound care [facility] Start: 12-21-2023 [facility] Start: 12-21-2023 Consultation [facility] Start: 12-21-2023 Admission procedure [facility] Start: 05-26-2023 [facility] Start: 05-24-2023 Simple repair f/e/e/ n/l/m 2.6cm-5.0 cm RPR F/E/E/N/L/M 2.6-5.0 CM [facility] Anion gap measurement [facility] Anion gap measurement [facility] Anion gap measurement [facility] Anion gap measurement [facility] BUN/Creatinine ratio [facility] BUN/Creatinine ratio [facility] BUN/Creatinine ratio [facility] BUN/Creatinine ratio [facility] Calcium [Mass/volume ] in Serum or Plasma [facility] Calcium [Mass/volume ] in Serum or Plasma [facility] Calcium [Mass/volume ] in Serum or Plasma [facility] Calcium [Mass/volume ] in Serum or Plasma [facility] Carbon dioxide, tota l [Moles/volume] in Serum or Plasma [facility] Carbon dioxide, tota l [Moles/volume] in Serum or Plasma [facility] Carbon dioxide, tota l [Moles/volume] in Serum or Plasma [facility] Carbon dioxide, tota l [Moles/volume] in Serum or Plasma [facility] Chloride [Moles/volu me] in Serum or Plasma [facility] Chloride [Moles/volu me] in Serum or Plasma [facility] Chloride [Moles/volu me] in Serum or Plasma [facility] Chloride [Moles/volu me] in Serum or Plasma [facility] Creatinine [Moles/vo lume] in Serum or Plasma [facility] Creatinine [Moles/vo lume] in Serum or Plasma [facility] Creatinine [Moles/vo lume] in Serum or Plasma [facility] Creatinine [Moles/vo lume] in Serum or Plasma [facility] Erythrocyte mean cor puscular volume determination [facility] Erythrocyte mean cor puscular volume determination [facility] Erythrocyte mean cor puscular volume determination [facility] Erythrocyte mean cor puscular volume determination [facility] Glucose [Mass/volume ] in Serum or Plasma [facility] Glucose [Mass/volume ] in Serum or Plasma [facility] Glucose [Mass/volume ] in Serum or Plasma [facility] Glucose [Mass/volume ] in Serum or Plasma [facility] Hematocrit [Volume F raction] of Blood [facility] Hematocrit [Volume F raction] of Blood [facility] Hematocrit [Volume F raction] of Blood [facility] Hematocrit [Volume F raction] of Blood [facility] Hemoglobin [Mass/vol ume] in Blood [facility] Hemoglobin [Mass/vol ume] in Blood [facility] Hemoglobin [Mass/vol ume] in Blood [facility] Hemoglobin [Mass/vol ume] in Blood [facility] Leukocytes [#/volume ] in Blood [facility] Leukocytes [#/volume ] in Blood [facility] Leukocytes [#/volume ] in Blood [facility] Leukocytes [#/volume ] in Blood [facility] Mean corpuscular hem oglobin concentration determination [facility] Mean corpuscular hem oglobin concentration determination [facility] Mean corpuscular hem oglobin concentration determination [facility] Mean corpuscular hem oglobin concentration determination [facility] Mean corpuscular hem oglobin determination [facility] Mean corpuscular hem oglobin determination [facility] Mean corpuscular hem oglobin determination [facility] Mean corpuscular hem oglobin determination [facility] Measurement of renal function [facility] Measurement of renal function [facility] Measurement of renal function [facility] Measurement of renal function [facility] Neutrophil count [facility] Neutrophil count [facility] Neutrophil count [facility] Neutrophil count [facility] Neutrophil percent differential count [facility] Neutrophil percent differential count [facility] Neutrophil percent differential count [facility] Neutrophil percent differential count [facility] Patient Education [facility] Work Phone: Patient referral [facility] Work Phone: Platelets [#/volume] in Blood [facility] Platelets [#/volume] in Blood [facility] Platelets [#/volume] in Blood [facility] Platelets [#/volume] in Blood [facility] Potassium [Moles/vol ume] in Serum or Plasma [facility] Potassium [Moles/vol ume] in Serum or Plasma [facility] Potassium [Moles/vol ume] in Serum or Plasma [facility] Potassium [Moles/vol ume] in Serum or Plasma [facility] Red blood cell count [facility] Red blood cell count [facility] Red blood cell count [facility] Red blood cell count [facility] Red cell distributio n width determination [facility] Red cell distributio n width determination [facility] Red cell distributio n width determination [facility] Red cell distributio n width determination [facility] Sodium [Moles/volume ] in Serum or Plasma [facility] Sodium [Moles/volume ] in Serum or Plasma [facility] Sodium [Moles/volume ] in Serum or Plasma [facility] Sodium [Moles/volume ] in Serum or Plasma [facility] Urea nitrogen [Mass/ volume] in Serum or Plasma [facility] Urea nitrogen [Mass/ volume] in Serum or Plasma [facility] Urea nitrogen [Mass/ volume] in Serum or Plasma [facility] Urea nitrogen [Mass/ volume] in Serum or Plasma [facility] Immunizations Immunization Date Immunization Notes Care Provider [facility] 08-12-2023 influenza virus vacc ine, unspecified formulation DR JOSE RAMON ZULUAGA MD [facility] 08-12-2023 influenza, injectabl e, quadrivalent, preservative free Dr. Alex Sommers Work Phone: [facility] 08-12-2023 pneumococcal 20-gabby nt conjugate vaccine DR JOSE ARMON ZULUAGA MD [facility] 08-12-2023 Pneumococcal Vaccine PCV20 (Prevnar 20) Dr. Alex Sommers Work Phone: [facility] 05-24-2023 tetanus toxoid, redu annabelle diphtheria toxoid, and acellular pertussis vaccine, adsorbed [facility] 09-03-2022 influenza virus vacc ine, unspecified formulation DR JOSE RAMON ZULUAGA MD [facility] 08-31-2022 SARS-CoV-2 (CV19)mRNA-[address] JOSE RAMON ZULUAGA MD [facility] Comment on above: Result Comment: 2022: [id number] 03-02-2022 SARS-CoV-2 (COVID-19 ) mRNA-[address] JOSE RAMON ZULUAGA MD [facility] 09-11-2021 SARS-CoV-2 (COVID-19 ) mRNA-[address] JOSE RAMON ZULUAGA MD [facility] 09-04-2021 influenza virus vacc ine, unspecified formulation DR JOSE RAMON ZULUAGA MD [facility] 12-25-2020 SARS-CoV-2 (COVID-19 ) mRNA-[address] JOSE RAMON ZULUAGA MD [facility] 11-27-2020 Covid (Moderna) [facility] Comment on above: Result Comment: 2022: [id number] 08-01-2020 influenza virus vacc ine, unspecified formulation DR JOSE RAMON ZULUAGA MD [facility] 09-06-2018 influenza virus vacc ine, unspecified formulation DR JOSE RAMON ZULUAGA MD [facility] 06-10-2016 pneumococcal polysaccharide vaccine, [address] JOSE RAMON ZULUAGA MD [facility] 03-28-2015 pneumococcal conjuga te vaccine, [address] JOSE RAMON ZULUAGA MD [facility] 03-28-2015 tetanus toxoid, redu annabelle diphtheria toxoid, and acellular pertussis vaccine, adsorbed DR JOSE RAMON ZULUAGA MD [facility] 07-24-2012 influenza virus vacc ine, unspecified formulation DR JOSE RAMON ZULUAGA MD [facility] 05-13-2000 diphtheria and tetan us toxoids, adsorbed for pediatric use DR JOSE RAMON ZULUAGA MD [facility] Payers Date Payer Category Payer Medicare [id number] 2024 Self-pay [id number] 2012 Private Health Insurance [facility] [id number] 1940 Unknown [id number] 2.16.8 [id number] 1940 Unknown [id number] 2.16.8 [id number] 1940 Unknown [id number] 2.16.8 40.1.925547.3.579.2.627 1940 Unknown [id number] 2.16.8 40.1.594967.3.579.2.627 1940 Unknown [id number] 2.16.8 [id number] 1940 Unknown [id number] 2.16.8 40.1.502925.3.579.2.627 Medicare [id number] Unknown [id number] 2.16.8 [id number] Unknown [id number] 2.16.8 40.1.835841.3.579.2.462 Unknown [id number] 2.16.8 40.1.480796.3.579.2.462 Unknown [id number] 2.16.8 40.1.326612.3.579.2.462 Unknown [id number] 2.16.8 40.1.266886.3.579.2.462 Unknown [id number] 2.16.8 40.1.138622.3.579.2.462 Unknown [id number] 2.16.8 40.1.061809.3.579.2.462 Unknown [id number] 2.16.8 40.1.576403.3.579.2.462 Unknown [id number] 2.16.8 40.1.081630.3.579.2.462 Unknown [id number] 2.16.8 40.1.376475.3.579.2.462 Social History Date Type Detail Facility Start: 04-29-2020 End: 12-23-2023 Tobacco smoking status NHIS Unknown if ever smoked [facility] Start: 1940 Sex Assigned At Female [facility] Start: 08-26-2023 Tobacco smoking status Never smoked tobacco (finding) [facility] Start: 08-10-2024 End: 07-07-2025 Tobacco smoking status NHIS Ex-smoker (finding) [facility] Start: 1940 Sex assigned at Not on file [facility] Gender identity Not on file [facility] NEGATED: Highlighted row [facility] Medical Equipment Procedure Code Equipment Code Equipment Origin al Text Equipment Identifier Dates ([id number]) Metal-backed pat mela prosthesis [id number] [id number] FDA Start: 12-21-2023 ([id number]) Coated knee femu r prosthesis ()[id number] [id number] FDA Start: 12-21-2023 ([id number]) Coated knee tibi a prosthesis ()[id number] [id number] FDA Start: 12-21-2023 ([id number]) Tibial insert ()[id number] [id number] FDA Start: 12-21-2023 Goals Date Patient Goal Desired Activity /State Functional Status Date Assessment Result Facility 01-04-2024 Functional status Chair [facility] Work Phone: 01-03-2024 Functional status Tolerates Activity Fair [facility] Work Phone: 12-28-2023 Functional status Ambulates [facility] Work Phone: 12-27-2023 Functional status Tolerates Activity Well [facility] Work Phone: 12-23-2023 Functional status Ambulates [facility] Work Phone: 11-15-2023 Functional Status Mod I [facility] 09-21-2023 Functional Status 2 [facility] 09-21-2023 Functional Status Identified as high risk, Fall ID band on, Room located near nursing station, Bed alert on, Door open, Non-Slip footwear [facility] 09-21-2023 Functional Status [facility] 09-21-2023 Functional Status bilateral knee high applied/on [facility] 09-20-2023 Functional Status [facility] 09-20-2023 Functional Status [facility] 09-20-2023 [facility]23 Functional Status Supervised [facility] 09-20-2023 Functional Status Single level home [facility] 09-20-2023 Functional Status [facility] 09-20-2023 Functional Status Maintained, More than 8 hours [facility] 08-26-2023 Functional Status Sensory Deficits None A [facility] Mental Status Date Assessment Result Facility 07-07-2025 Cognitive function Level Of Cons ciousness Awake;Alert;Appropriate;Follow s Commands [facility] Work Phone: 01-04-2024 Cognitive function Voice/Name [facility] Work Phone: 01-03-2024 Cognitive function Patient Orien tation Person;Place;Time [facility] Work Phone: 12-30-2023 [facility] 12-27-2023 Cognitive function Voice/Name [facility] Work Phone: 12-23-2023 Cognitive function [facility]ropriate[facility] Work Phone: 12-23-2023 Cognitive function Arousable To Voice/Nam e [facility] Work Phone: 09-21-2023 Mental Status Orientation Asse ssment Oriented x 4 [facility] 09-21-2023 Mental Status Oriented x 4 [facility] 09-20-[address] [facility] 09-20-[address] [facility] 05-26-2023 Cognitive function Level Of Cons ciousness Awake;Alert;Appropriate;Follow s Commands [facility] Work Phone: Clinical Notes 04-30-2021 to 07-07-2025 Note Date & Type Note Facility 07-07-2025 Discharge summary [facility] 07-07-2025 Radiology Diagnostic study note [facility] Imaging Services [address] [place] [address] Chest PA and Lateral MR#: [id number] Acct: [id number] Name: FRED MON Rep #: [id number] : 1940 F 84 From: Chicho Hughes MD PCP: Dr. Alex Sommers MD Status: RE G ER Study:Chest PA and Lateral Date of Exam: 07/07/25 Exam# [id number] Ordering Dr: Rock Quijano MD PROCEDURE: CHEST PA AND LATERAL 07/07/2025 REASON FOR EXAM: COUGH, WEAKNESS TECHNIQUE: Procedure Code: RADCXR Modality: DX Procedure: CHEST PA AND LATERAL COMPARISON: X-ray 08/10/2024. FINDINGS: Hardware: Monitor electrodes overlie the chest. Heart: No cardiomegaly. Mediastinum: Unremarkable. Lungs: Clear. No pleural effusion or pneumothorax. Bones: No acute bony abnormalities. RAD/Chest PA and Lateral IMPRESSION: No acute cardiopulmonary abnormalities. Reading Location: [facility] CC: Dr. Sophia Quijano MD; Dr. 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 Alex Sommers MD Status: RE G CLI Study:Breast Limited Unilateral Date of Exam: 06/13/25 Exam# [id number] Ordering Dr: Alex Sommers MD PROCEDURE: BREAST LIMITED UNILATERAL 06/13/2025 REASON [...] annual follow-up in 1 Year Reading Location: [id number] CC: Dr. 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 Alex Sommesr MD Status:AD M IN Location: [facility] TCU05-1 Providers Date of Admission: 12/23/23 Primary Care Physician: Dr. Alex Sommers MD Reason For Visit: LEFT TOTAL KNEE [...] to discharge home alone. Discharge home 01/04/2024, [facility] PT/OT. Physical Exam Const alert General Appearance: [...] Uncontrolled pain Additional Instructions: Discharge home 01/04/2024, [facility] PT/OT. Please Follow Up With: Michael Joel PA-C When: As scheduled. Meaningful Use Info Meaningful Use Diagnoses (Choose all that apply): None applicable Discharge Plan Admission Admit Date/Time: 12/23/23 12:41 Primary Reason for Your Visit: Debility. Attending Provider: Nima Harper Chi Primary Care Provider: Alex Sommers Instructions Additional Instructions / Restrictions: Discharge home 01/04/2024, [facility] PT/OT. Discharge Orders/Prescriptions Prescriptions: New acetaminophen 500 [...] 0 0RF Referrals / Follow Up: Alex Sommers MD [Primary Care Provider] - (Please make appt ulysses as pt needs seen prior to C SOC. ) Disposition Disposition (needs filled in before D/C Order can be placed): Home Health Service 01/02/24 0801 <Electronically signed by Nima Harper MD> Cosigner Signature (if applicable): CC: Dr. Alex Sommers MD; Dr. Nima Harper MD~ Signed [facility] Work Phone: 1(488) 323-185902-19-2024 Progress note Author [facility] December 26, 2023 8:49am Note Date/Time December 26, 2023 8:09am [facility] Medical Records Department [address] [place] [address] Progress Note - Pharmacy 12/26/23 0807 MR#: [id number] Acct: [id number] Name: FRED MON Rep #:[id number] : 1940 83 From: Tiffanie Matias PCP: Dr. Alex Sommers MD Status:AD M IN Location: [place] [address]- Documented by User: Tiffanie Matias 12/26/23 08:18 TCU RX Drug Regimen Review Subjective/Objective Subjective/Objective: Subjective: TCU Admission. 83 YOF hospitalized for left TKA 12/21/[address] Zuluaga, postoperative course complicated by encephalopathy, anemia. Admitted to TCU with debility for strengthening and rehabilitation. Objective: Allergies No Known Allergies Allergy (Verified 12/21/23 06:41) Current Medications Generic Name Dose Route Start Last Admin Trade Name Joshuaq PRN Reason Stop Dose Admin Acetaminophen 1,000 [...] 237 Ml Liquid PO Not Given [facility] Famotidine 20 mg 12/24/23 10:00 12/25/23 08:35 Famotidine 20 Mg Tablet PO 20 mg DAILY ANDRADE Administration Lisinopril 10 mg 12/24/23 10:00 12/25/23 08:38 Lisinopril 10 Mg Tablet PO 10 mg DAILY [facility] Administration Protocol Melatonin 3 mg 12/23/23 22:00 12/25/23 21:39 Melatonin 3 Mg Tablet PO 3 mg QHS ANDRADE Administration Meloxicam 7.5 mg 12/23/23 17:00 12/25/23 17:56 Meloxicam 7.5 Mg Tablet PO 7.5 mg [facility] Administration Senna/Docusate Sodium 2 tablet 12/23/23 [...] by Nima Harper MD> CC: ~ Signed [facility] Work Phone: 1(117) 245-150702-16-2024 History and physical note Author Nima Leroy [facility] December 23, 2023 2:29pm Note Date/Time December 23, 2023 2:12pm [facility] Medical Records Department [address] [place] [address] History & Physical Exam 12/23/23 1410 MR#: [id number] Acct: [id number] Name: FRED MON AMAN Rep #:[id number] : 1940 83 From: Nima Harper MD PCP: Dr. Alex Sommers MD Status:AD M IN [facility] HPI - General General Date of Admission: 12/23/23 Date of Service: 12/23/23 Chief Complaint: Here for rehabilitation. HPI Narrative FRED MON, is a 83 Female who presents with followin12/21/2023 Admit to [facility]. 12/21/2023 Dr. Zuluaga performed left TKA. 12/22/2023 [...] aches. Mentation baseline. Discussed with daughter Camille. [facility] Medical History (Updated 12/23/23 @ 14:19 [...] Cosigner Signature (if applicable): CC: Dr. Alex Sommers MD; Dr. Nima Harper MD~ Signed [facility] Work Phone: 1(852) 663-330702-15-2024 Progress note Author Michael Joel [facility] December 22, 2023 10:49am Note Date/Time December 22, 2023 10:49am [facility] Medical Records Department [address] [place] [address] Progress Note - Orthopedic 12/22/23 1044 MR#: [id number] Acct: [id number] Name: FRED MON Rep #:[id number] : 1940 83 From: Michael CANTOR PA-C PCP: Dr. Alex Sommers MD Status:AD M IN Location: [facility] DE150-4 Subjective Subjective The patient was sitting in [...] with above medications. I have reviewed the [place] Automated Rx Reporting System (OARRS) report for [...] Cosigner Signature (if applicable): CC: ~ Signed [facility] Work Phone: 1(491) 993-198602-15-2024 Progress note Author Stefano Avina [facility] December 22, 2023 10:10am Note Date/Time December 22, 2023 10:10am [facility] Medical Records Department [address] [place] [address] Progress Note - Hospitalist 12/22/23 1008 MR#: [id number] Acct: [id number] Name: FRED MON AMAN Rep #:[id number] : 1940 83 From: Stefano mueller MD PCP: Dr. Alex Sommers MD Status:AD M IN Location: [facility] ZC317-5 Subjective Subjective No issues, pain is controlled. [...] follow peripherally Charges/Coding Visit Charges Inpatient E&M: 89527 Subs Hosp L2 12/22/23 1010 <Electronically signed by Stefano Avina MD> Cosigner Signature (if applicable): CC: ~ Signed [facility] Work Phone: 1(658) 210-863202-14-2024 Procedure [facility] 12-21-2023 History and physical note Author Jose Ramon Zuluaga [facility] December 21, 2023 7:02am Note Date/Time December 15, 2023 2 :48pm [facility] Medical Records Department [address] [place] [address] History & Physical Exam 12/15/23 1447 MR#: [id number] Acct: [id number] Name: FRED MON Rep #:[id number] : 1940 83 From: Michael CANTOR PA-C PCP: Dr. Alex Sommers MD Status:[facility] Location: [place] [address] History and Physical History and Physical? Patient [...] medical history.? [facility]?? REVIEW OF SYSTEMS: Review Of Systems: Constitutional: [...] Arthroscopy - (09/13/2006) LT KNEE, DR. CASTILLO, [facility] Knee Replacement RT - (09/20/2023) ROBOTIC ASSISTED RT TKR AND INJECTION LEFT KNEE DR. ZULUAGA AT [facility] Anesthesia Complications: None Assistive Devices: Glasses, [...] (if applicable): CC: CINTIA Joel; Dr. Alex Sommers MD; Dr. Jose Ramon Zuluaga MD~ Signed ADDENDUM by Dr. Jose Ramon Zuluaga MD on 12/21/23 at 0702 Addendum I have examined the patient and the H&P has been reviewed. There are no clinicalchanges since date of exam. 12/21/23 0702<Electronically signed by Jose Ramon Zuluaga MD> Cosigner Signature (if applicable): cc: CINTIA Joel; Dr. Alex Sommers MD; Dr. Jose Ramon Zuluaga MD ~* Signed [facility] Work Phone: 1(312) 287-160911-15-2023 Hospital Discharge instructions Patient Education 09/21/2023 13:06:09 Total Knee Replacement, Care After, Xsam-ss-Jarj Total Knee Replacement, Care After This sheet [...] Follow these instructions at home: Medicines Take hzes-azd-cbyxohs and prescription medicines only as told by [...] keep your pee (urine) pale yellow. ?Take qoxy-uzz-kfaecmv or prescription medicines. ?Eat foods that are [...] cannot use soap and water, use hand channeler outsole. ?Change your bandage as told by your [...] 01/15/2013 Document Revised: 03/03/2020 Document Reviewed: 06/07/2019 [employer] Patient Education 2020 [employer]. 09/21/2023 06:56:19 5 - [facility] Post-op Instruction 06/2017 (46540) [facility] Post-operative Instructions PLEASE FOLLOW [facility] POST-OP INSTRUCTIONS GIVEN WATCH FOR SIGNS OF INFECTION: call the office ([phone]) if experencing any of the following: (Usually [...] on your follow up instructions. Form: 338A (08371) R: 03/13 Follow Up Care 07/26/2023 08:02:18 With:[facility] Address: [address] [place] [address] [phone] When:09/23/2023 13:00:00 Comments:This is your first physical therapy appointment. Follow-up as scheduled. With:MICHAEL JOEL PA-C, Orthopedic Address: [facility] [address] [place] [id number] When:10/03/2023 13:30:00 Comments:This is your post-op appointment. Follow-up as scheduled. [facility] Roddy Mustafa 11-15-2023 Note Discharge Instructions Thank you for allowing [facility] to assist you with your healthcare needs. [...] your post-op appointment. Follow-up as scheduled. Where: [facility] [address] [place] [id number]- Follow Up with [facility] When 09/23/2023 01:00 PM EST Why: This is your first physical therapy appointment. Follow-up as scheduled. Where: [facility] [place] [address]- [phone] The Following Treatments Have Been Ordered for [...] weeks postoperatively for DVT prophylaxis. Pickup at [facility] #[id number] New docusate-senna (Senokot S 50 mg-8.6 mg oral tablet) 2 tab(s) by mouth Two (2) times a day Duration: 3 Days Take until first bowel movement, then as needed Pickup at [facility] #[id number] New famotidine (Pepcid 20 mg oral tablet) 1 tab(s) by mouth Once a day Pickup at [facility] #[id number] New oxyCODONE (oxyCODONE 5 mg oral tablet ( IMMEDIATE release )) See instructions Status post total right knee replacement 1-2 tab(s) Oral q4h Pickup at [facility] #68098 Changed acetaminophen (Tylenol) 1,000 Milligram by mouth [...] by mouth Once a day Pharmacy Information [facility] #[id number]: [address] [place], [place] [id number] [phone] Please take this list to your next [...] may report side effects to FDA at 6-043-CBT-4598. What other drugs will affect docusate and senna? Other drugs may affect docusate and senna, including prescription and ecew-ofn-pwnseut medicines, vitamins, and herbal products. Tell your [...] to ensure that the information provided by [employer]. ('Multum') is accurate, up-to-date, and complete, but no guarantee is made to that effect. Drug information contained herein may be time sensitive. [employer] information has been compiled for use by healthcare practitioners and consumers in the [place] and therefore [employer] does not warrant that uses outside of the [place] are appropriate, unless specifically indicated otherwise. [employer] drug information does not endorse drugs, diagnose patients or recommend therapy. [employer] drug information isan informational resource designed to [...] effective or appropriate for any given patient. [employer] does not assume any responsibility for any aspect of healthcare administered with the aid of information [employer] provides. The information contained herein is not intended to cover all possible uses, directions, precautions, warnings, drug interactions, allergic reactions, or adverse effects. If you have questions about the drugs you are taking, check with your doctor, nurse or pharmacist. Copyright 5293-2950 [employer]. Version: 5.01. Revision Date: 06/13/2023. oxycodone (ox [...] The extended-release form of oxycodone is for xbttvp-gcb-ucqdv treatment of pain and should not be [...] against the law. Stop taking all other quhwwn-gta-ftodt opioid pain medicines when you start taking [...] may report side effects to FDA at 3-694-DRI-6852. What other drugs will affect oxycodone? You [...] drugs may affect oxycodone. This includes prescription hnitsch-dlp-gdeslva medicines, vitamins, and herbal products. Not all [...] to ensure that the information provided by [employer]. ('Multum') is accurate, up-to-date, and complete, but no guarantee is made to that effect. Drug information contained herein may be time sensitive. [employer] information has been compiled for use by healthcare practitioners and consumers in the [place] and therefore [employer] does not warrant that uses outside of the [place] are appropriate, unless specifically indicated otherwise. [employer]'s drug information does not endorse drugs, diagnose patients or recommend therapy. [employer] drug information isan informational resource designed to [...] effective or appropriate for any given patient. [employer] does not assume any responsibility for any aspect of healthcare administered with the aid of information [employer] provides. The information contained herein is not intended to cover all possible uses, directions, precautions, warnings, drug interactions, allergic reactions, or adverse effects. If you have questions about the drugs you are taking, check with your doctor, nurse or pharmacist. Copyright 4683-1026 [employer]. Version: 16.01. Revision Date: 06/10/2023. acetaminophen (oral) (a SEET [...] may report side effects to FDA at 6-974-ONG-4876. What other drugs will affect acetaminophen? Other drugs may affect acetaminophen, including prescription and yedn-twi-iiktlkj medicines, vitamins, and herbal products. Tell your [...] to ensure that the information provided by [employer] ('Multum') is accurate, up-to-date, and complete, but no guarantee is made to that effect. Drug information contained herein may be time sensitive. [employer] information has been compiled for use by healthcare practitioners and consumers in the [place] and therefore [employer] does not warrant that uses outside of the [place] are appropriate, unless specifically indicated otherwise. [employer] drug information does not endorse drugs, diagnose patients or recommend therapy. [employer] drug information isan informational resource designed to [...] effective or appropriate for any given patient. [employer] does not assume any responsibility for any aspect of healthcare administered with the aid of information [employer] provides. The information contained herein is not intended to cover all possible uses, directions, precautions, warnings, drug interactions, allergic reactions, or adverse effects. If you have questions about the drugs you are taking, check with your doctor, nurse or pharmacist. Copyright 0578-6507 [employer]. Version: 25.. Revision Date: 06/06/2023. aspirin (oral) ( pir in) Aspi-Cor, Lore Plus, Durlaza, Ecotrin, Miniprin, Vazalore What is the most important information I should know about aspirin? Aspirin can cause Kimberly's syndrome, a serious and sometimes fatal condition in children. What is aspirin? Aspirin is a salicylate (xh-CND-qz-ate) that is used to treat pain, and [...] may report side effects to FDA at 1-908-UMI-4248. What other drugs will affect aspirin? Ask [...] drugs may affect aspirin, including prescription and slor-qcb-pndkezd medicines, vitamins, and herbal products. Not all [...] to ensure that the information provided by [employer]. ('Multum') is accurate, up-to-date, and complete, but no guarantee is made to that effect. Drug information contained herein may be time sensitive. [employer] information has been compiled for use by healthcare practitioners and consumers in the [place] and therefore [employer] does not warrant that uses outside of the [place] are appropriate, unless specifically indicated otherwise. [employer]'s drug information does not endorse drugs, diagnose patients or recommend therapy. [employer]'s drug information isan informational resource designed to [...] effective or appropriate for any given patient. [facility] does not assume any responsibility for any aspect of healthcare administered with the aid of information [facility] provides. The information contained herein is not intended to cover all possible uses, directions, precautions, warnings, drug interactions, allergic reactions, or adverse effects. If you have questions about the drugs you are taking, check with your doctor, nurse or pharmacist. Copyright 0363-8073 [facility]. Version: 18.. Revision Date: 05/30/2023. famotidine (oral/injection) [...] may report side effects to FDA at 9-668-UXQ-0989. What other drugs will affect famotidine? Famotidine oral can make it harder for your body to absorb other medicines you take by mouth. Tell your doctor if you are taking: cefditoren; dasatinib; delavirdine; fosamprenavir; or tizanidine (if you are taking famotidine liquid). This list is not complete. Other drugs may affect famotidine, including prescription and qiuf-wiz-vjtpeop medicines, vitamins, and herbal products. Not all [...] to ensure that the information provided by [employer]. ('Multum') is accurate, up-to-date, and complete, but no guarantee is made to that effect. Drug information contained herein may be time sensitive. [employer] information has been compiled for use by healthcare practitioners and consumers in the [place] and therefore [employer] does not warrant that uses outside of the [place] are appropriate, unless specifically indicated otherwise. [employer] drug information does not endorse drugs, diagnose patients or recommend therapy. [employer] drug information isan informational resource designed to [...] effective or appropriate for any given patient. [employer] does not assume any responsibility for any aspect of healthcare administered with the aid of information [employer] provides. The information contained herein is not intended to cover all possible uses, directions, precautions, warnings, drug interactions, allergic reactions, or adverse effects. If you have questions about the drugs you are taking, check with your doctor, nurse or pharmacist. Copyright 0245-3162 [employer]. Version: 20.01. Revision Date: 05/30/2023. Education Materials Total Knee [...] Follow these instructions at home: Medicines Take gblz-pwy-stougej and prescription medicines only as told by [...] your pee (urine) pale yellow. ? Take oaiq-syh-vxkumpk or prescription medicines. ? Eat foods that [...] cannot use soap and water, use hand channeler outsole. ? Change your bandage as told by your doctor. ? Leave stitches (sutures), skin glue, or skin tape (adhesive) strips in bruna (more content not included)... [facility]11-15-2023 Note Date of Service September [...] does have outpatient physical therapy established at [facility]. She will follow-up per postoperative instructions. Patient would like her prescriptions E scribed to [facility] in [facility]. Upon discharge she will contact her office with any concerns or questions. I have reviewed the [place] Automated Rx Reporting System (OARRS) report for [...] MICHAEL JOEL PA-C on 09/21/2023 06:56 AM [facility]11-15-2023 Note Date of Service September [...] does have outpatient physical therapy established at [facility]. She will follow-up per postoperative instructions. Patient would like her prescriptions E scribed to [facility] in [facility]. Upon discharge she will contact her office with any concerns or questions. I have reviewed the [place] Automated Rx Reporting System (OARRS) report for [...] MICHAEL JOEL PA-C on 09/21/2023 06:56 AM [facility]11-14-2023 Note ORIGINAL EXAMINATION: TWO XRAY [...] 09/20/2023 1:06:13 PM Ordering Provider: JOSE RAMON [facility]11-14-2023 Anesthesiology Consult note Patient: FRED MON Age: 82 years Sex: Female : 1940 Associated Diagnoses: None Author: LAM DAVILA RN CASE MANAGEMENT-SHEET TAKER Preoperative Information Anesthesia history Patient's history: negative. [...] or recorded. Procedure history: Arthroscopy of knee ([id number]). Comments: 09/20/2023 8:59 EST - Montse Austin [...] Height 165.1 cm Admission Weight 87.9 kg [place] Body Weight 57.00 kg Admission Body Mass [...] Person #1 We May Share PHI CAMILLE WEAVER [phone] Designated Person #1 Relationship Daughter Designated Person #2 We May Share PHI RIC TRUJILLO [phone] Designated Person #2 Relationship Daughter Privacy Restrictions [...] No Advanced Directives Yes Advance Directive Type [facility] Power of Reinstatement Clerk for [facility], [place] Declaration (Living Will) Advance Directive Location [...] 12:43 Anesthesia Evaluation Performed By LAM DAVILA APRN-SHEET TAKER Anesthesia Evaluation Result Approved Individuals Taught Patient, Daughter Barriers to Learning None evident Teaching Method Explanation Preferred Spoken Language Ghanaian Preferred Written Language Ghanaian Total Joint Book Given Yes Pre Procedure/Surgery Education Appropriate expectations Procedure/Surgical Teaching Evaluation Verbalizes/Nonverbally indicates understanding Information Given by Patient Patient's Current Physicians DR SOMMERS - PCP Discharge To, Anticipated Home independently [...] 8:00 Patient Cleared for Surgery By ALEX SOMMERS MD 09/20/2023 8:52 EST Height 165.1 cm Admission Weight 87.9 kg [place] Body Weight 57.00 kg Admission Body Mass [...] no difficulties Skin Temperature Warm Skin Description [place], Dry Skin Integrity Intact Neurological Symptoms Patient [...] Upper/Half-Length side-rails up . Assessment and Plan [place] Society of Anesthesiologists (ASA) physical status classification: Class III. Anesthetic Preoperative Plan Anesthetic technique: Spinal. Regional: Spinal. Postoperative pain management: adductor canal block. Risks discussed: nausea, vomiting, headache, hypotension, allergic reaction, serious complications. Informed consent: signed by patient. Digitally Signed by LAM DAVILA on 09/20/2023 10:24 AM [facility]11-07-2023 Discharge summary Author Fredis Quinones [facility] September 13, 2023 5:15pm Note Date/Time September 13, 2023 5 :15pm [facility] [address] [place] [address]. [address] [place] [address] / REHABILITATION SERVICES DISCHARGE SUMMARY MR#: [id number] Acct: [id number] Name: FRED MON Rep #: [id number] : 1940 82 From: Fredis Quinones DPT, GERRY, CSCS Referring Dr.: Dr. Alex Sommers MD Status: REG RCR Insurance: [employer] [facility] SELF PAY INSURANCE Patient Information Patient [...] the physician. Thank you! Fredis Quinones DPT, GERRY, CSCS Balance/Gait/Functional tests Balance/Special Test Scores Functional Gait Assessment Score: 25 % Disability: 16.6700 Dizziness Score: 12 <Electronically signed by Fredis Quinones DPT, GERRY, CSCS> 09/13/23 1715 CC: Dr. Alex Sommers MD ~ EBG Signed [facility] Work Phone: 1(175) 567-403810-20-2023 Note ORIGINAL EXAMINATION: CT of the right [...] Sign Date: 08/26/2023 4:18:41 PM Ordering Provider: [facility]06-24-2021 Note HNO ID: [id number] Author: Jin Hinds MD Service: ? Author Type: Physician Type: Progress Notes Filed: 05/05/2021 8:44 PM Note Text: CONSULT ORTHOPAEDIC: KNEE PRIMARY CARE PHYSICIAN: No primary care provider on file. REFERRING PROVIDER: SELF ASSESSMENT AND PLAN Impression: Left Knee Severe Degenerative Osteoarthritis, Primary After discussion with Fred Clemons [place], continued non-operative management of general matcher bracing and Voltaren gel was chosen. The [...] and healthy. The patient has been ordered: Cloth Presser brace CONSULTS: Patient does not require consults [...] noted to hav (more content not included)... [facility] note Author Tiffanie Matias [facility] December 23, 2023 10:52am Note Date/Time December 23, 2023 10:52am [facility] Medical Records Department [address] [place] [address] Counseling Note - Pharmacy 12/23/23 1052 MR#: [id number] Acct: [id number] Name: FRED MON AMAN Rep #:[id number] : 1940 83 From: Tiffanie Matias PCP: Dr. Alex Sommers MD Status:AD M IN Y Location: [address] Pharm[address] [place] Med Reconciliation Pharmacy Service has performed discharge [...] Signature (if applicable): Date CC: ~ Signed [facility] Work Phone: Discharge summary Author Jose Ramon Zuluaga [facility] December 23, 2023 10:40am Note Date/Time December 23, 2023 10:34am [facility] Medical Records Department [address] [place] [address] Discharge Summary 12/23/23 1030 MR#: [id number] Acct: [id number] Name: FRED MON AMAN Rep #:[id number] : 1940 83 From: Jose Ramon Sol PCP: Dr. Alex Sommers MD Status:AD M IN Location: MS3 [id number] Providers Date of Admission: 12/21/23 Primary Care Physician: Dr. Alex Sommers MD Consultations 12/21/23 07:04 Consult: Hospitalist Routine [...] Jose Ramon Zuluaga Primary Care Provider: Alex Sommers Consulting Providers: Stefano Avina Discharge Orders/Prescriptions Prescriptions: [...] PO Q12H Referrals / Follow Up: Alex Sommers MD [Primary Care Provider] - Disposition Disposition (needs filled in before D/C Order can be placed): Detention Facility 12/23/23 1040 <Electronically signed by Jose Ramon Zuluaga MD> Cosigner Signature (if applicable): CC: Dr. Alex Sommers MD; Dr. Jose Ramon Zuluaga MD~ Signed [facility] Work Phone: Discharge summary Author Jose Ramon Zuluaga [facility] December 23, 2023 10:47am Note Date/Time December 23, 2023 10:47am [facility] Medical Records Department [address] [place] [address] Transfer to [facility] MR#: [id number] Acct: [id number] Name: FRED MON Rep #:[id number] : 1940 83 From: Jose Ramon Sol PCP: Dr. Alex Sommers MD Status:AD M IN Certification of patient admission REQUIRED AT TIME OF ADMISSION. I CERTIFY THAT POST-HOSPITAL ECF SERVICES ARE REQUIRED TO BE GIVEN ON AN IN-PATIENT BASIS BECAUSE OF THE ABOVE NAMED PATIENT'S NEED FOR SHELTER CARE ON A CONTINUING BASIS FOR THE CONDITION(S) FOR WHICH HE/SHE WAS RECEIVING IN-PATIENT HOSPITAL SERVICES PRIOR TO HIS/HER TRANSFER TO THE [facility]. 12/23/23 1047<Electronically signed by Jose Ramon [...] home alone. Patient has excepting facility at [facility]. Pre-CERT is been obtained. Plan is for discharge today. We did go over discharge instructions including DVT prophylaxis medications, stool softeners and pain management. I have reviewed the [place] Automated Rx Reporting System (OARRS) report for [...] Jose Ramon Zuluaga Primary Care Provider: Alex Sommers Consulting Providers: Stefano Avina Discharge Orders/Prescriptions Prescriptions: [...] PO Q12H Referrals / Follow Up: Alex Sommers MD [Primary Care Provider] - Disposition Disposition (needs filled in before D/C Order can be placed): Detention Facility 12/23/23 1047 <Electronically signed by Jose Ramon Zuluaga MD> Cosigner Signature (if applicable): CC: Dr. Alex Sommers MD; Dr. Stefano Avina MD ~ [facility] Work Phone: Discharge summary Author Sophia Quijano [facility] Note Date/Time July 07, 2025 7: 08am [facility] Medical Records Department [address] [place] [address] Emergency Department Summary 07/07/25 MR#: [id number] Acct: [id number] Name: FRED MON Rep #:[id number] : 1940 84 From: Sophia Quijano MD PCP: Dr. Alex Sommers MD Status:RE G ER Location: ED HPI History of Present Illness Chief Complaint: Weakness Narrative Narrative: Patient is a 84-year-old female presenting to the emergency department for cough, nausea and feeling fatigued for 2 days. Patient has a past medical history of hyperlipidemia, hypertension and carotid artery stenosis. Patient did not take her medications this morning prior to arrival. Patient states thatfor the past 2 days she has felt generally weak. Denies any focal weakness or numbness. She reports a dry cough and some mild congestion. Denies fever, chills, sore throat. Denies chest pain, shortness of breath, abdominal pain, vomiting, diarrhea, dysuria or hematuria. She lives at home alone. She denies any recent falls. She denies any headache or neck pain. Denies any visual changes or speech difficulty. Reports that she has been feeling intermittently lightheaded. Denies dizziness. Denies feeling lightheaded at time of evaluation. Asks if we can check for COVID. Ask if she can have something to eat because she thinks her symptoms are due to not eating this morning yet. [facility] Medical History Wears glasses Post-menopausal Walker as ambulation aid Ambulates with cane Arthritis High cholesterol Injury of head and neck Non-smoker Shortness of breath on exertion History of edema History of echocardiogram History of stress test Hyperlipidemia Hypertension Home Medications ?Medication ?Instructions ?Recorded ?Last Taken ?Type lovastatin 40 mg tablet 40 mg PO DAILY Cholesterol 0 04/29/20 12/22/23 21:40 History cholecalciferol (vitamin D3) 50 50 mcg PO DAILY health maintenance 06/23/22 12/23/23 09:30 History mcg (2,000 unit) capsule acetaminophen 500 mg tablet 1,000 mg (2 x 500 mg) PO Q 8 pain 12/23/23 12/23/23 09:30 Rx #0 tabs famotidine 20 mg tablet 20 mg PO DAILY Acid #0 tabs 12/23/23 12/23/23 09:30 Rx acetaminophen 500 mg tablet 1,000 mg (2 x 500 mg) PO Q 6 #0 tabs 01/02/24 Unknown Rx aspirin 81 mg chewable tablet 81 mg PO BIDCM 14 days # 0 tabs 01/02/24 Unknown Rx losartan 100 mg tablet 100 mg PO DAILY 30 days #30 tabs 01/02/24 Unknown Rx melatonin 10 mg sublingual tablet 10 mg PO QHS #0 tabs 01/02/24 Unknown Rx meloxicam 7.5 mg tablet 7.5 mg PO BIDCM 30 days #60 tabs 01/02/24 Unknown Rx tramadol 50 mg tablet 50 mg PO Q6H PRN PRN Pain Sc ore 01/02/24 Unknown Rx 1-10 7 days #28 tabs gabapentin 300 mg capsule 300 mg PO TID PRN pain 5 day s #15 08/10/24 Unknown Rx caps oxycodone 5 mg tablet 5 mg PO Q6H PRN pain 5 days #20 08/10/24 Unknown Rx tabs cephalexin 500 mg capsule 500 mg PO Q12 #14 CAPSULES 0 07/07/25 Unknown Rx Allergy/AdvReac Type Severity Reaction Status Date / Time No Known Allergies Allergy Verified 07/07/25 05:34 Family History no significant family his Surgical History Status post total left knee [...] Yes additional social history: ROS ROS ED ROS Narrative see HPI EXAM Physical Exam Narrative Exam Narrative: Vital signs: Reviewed General: Alert and orientedx3. No acute distress HEENT: Head is normocephalic and atraumatic, sinuses nontender, pupils equal round and reactive. Nares are patent. Oropharynx and throat exams normal. Neck: Supple without lymphadenopathy nontender Cardiovascular: Regular rate and rhythm, no murmurs. No rubs or gallops. Normal S1 and S2 Respiratory: Clear to auscultation bilaterally. No wheezes, rales, rhonchi Abdominal: Soft and nontender. Normal bowel sounds. No guarding or rebound. Nonsurgical abdomen Extremities: No tenderness. No bruising. Normal range of motion. Normal sensation. Skin: No rash or redness. Neurological: Cranial nerves II through XII are grossly intact. Normal strengthand sensation. Normal cerebellar function The rest of the physical exam is unremarkable Const Vital Signs: 07/07/25 05:34 07/07/25 05:34 07/07/25 05:39 Temperature 98.7 F 98.2 F Temperature Source Oral Oral Pulse Rate 75 72 Respiratory Rate 18 18 Respiratory Effort Normal Respiratory Pattern Normal Blood Pressure 189/87 H 189/87 H Blood Pressure Mean 121 121 Pulse Ox 98 97 Oxygen Delivery Method Room Air Room Air 07/07/25 06:17 07/07/25 06:39 07/07/25 07:02 Temperature 98.2 F 97.7 F L Temperature Source Oral Pulse Rate 68 67 Respiratory Rate 18 16 Respiratory Effort Respiratory Pattern Blood Pressure 169/87 H 173/74 H 173/74 H Blood Pressure Mean 114 107 107 Pulse Ox 100 100 Oxygen Delivery Method Room Air NIHSS NIHSS Initial: 1a Level of Consciousness: 0 1b LOC Questions (Score 2 if aphasic/stupor): 0 1c LOC Commands (Only score 1st attempt): 0 2 Best Gaze (If aphasic, use reflexive mvmts.): 0 3 Visual: 0 4 Facial Palsy: 0 5 Motor Arm Right (UN = amputation/fusion): 0 5 Motor Arm Left: 0 6 Motor Leg Right: 0 6 Motor Leg Left: 0 7 Limb ataxia (Only + if out of proportion): 0 8 Sensory (Aphasia/stupor=0 or 1, coma=2): 0 9 Best Language: 0 10 Dysarthria (mute, coma=2, intubated=UN): 0 11 Extinction and Inattention (only scored if +): 0 Total Score: 0 MDM MDM MDM Narrative Medical decision making narrative: Patient is a 84-year-old female presenting to the emergency department for fatigue, cough, congestion and nausea. Patient was seen and examined. Vitals are stable. She arrives mildly hypertensive at 189/87. She did not take her blood pressure medications this morning. On chart review, she is hypertensive on past ER visits. Will give her home dose of BP meds given she is due for them at this time at home. Based on the patient's symptoms I suspect this is likely viral in nature. Zofran given for nausea. Labs, EKG, chest x-ray and viral swab were obtained. Patient is not having any focal weakness. NIH of 0. No described vertiginous symptoms to suspect posterior cerebellar stroke. Similar blood pressure to previous visits. No evidence of hypertensive emergency. No headache, chest pain,SOB, abdominal pain. EKG shows normal sinus rhythm with a right bundle branch block that seen on previous EKGs in 2023. No ischemic changes. No dysrhythmia. CBC with no leukocytosis and a normal hemoglobin. BMP with no significant abnormalities. Glucose of 118. Reevaluated after zofran, nausea is improved. Tolerating PO. CXR reviewed by myself. No opacities noted. Radiology read with no acute radiographic abnormalities. Viral swab positive for COVID19. Patient ambulated to the restroom with no difficulty. Urinalysis with evidence of UTI. Positive for nitrites, 3+ bacteria and leukocyte Estrase. Keflex prescription sent to pharmacy. Discussed findings with patient. Recommended symptomatic care at home for COVID. Saturating 100 on RA. Ambulates well. No indication for admission. Patient discharged from the Emergency Department. I do not feel that the patient's evaluation reveals any acute reason for admission at this time. I instructed them to either follow-up with their primary care physician or promptly return to the Emergency Department for reevaluation should symptoms worsen or new symptoms develop. I explained what symptoms would indicate the need to return to the emergency department. Shared decision making was used. Thepatient voiced understanding of the treatment plan and is agreeable with it. Clinical impression COVID19 UTI History & Record Review Discussion w/independent historian: Patient Additional record(s) reviewed:: Prior ED visit Lab Data Attestation: I reviewed the patient's lab results. Labs: Laboratory Results - last 24 hr 07/07/25 07/07/25 05:19 06:42 WBC 5.7 RBC 3.97 L Hgb 12.1 Hct 35.0 L MCV 88.2 MCH 30.5 MCHC 34.6 RDW Std Deviation 43.8 RDW Coeff of Rachel 13.5 Plt Count 130 L MPV 10.8 Immature Gran % (Auto) 0.200 Neut % (Auto) 70.1 H Lymph % (Auto) 17.5 L Carlton % (Auto) 10.1 H Eos % (Auto) 1.6 Baso % (Auto) 0.5 Absolute Neuts (auto) 4.0 Absolute Lymphs (auto) 0.99 Nucleated RBC % 0 Sodium 137 Potassium 4.1 Chloride 102 Carbon Dioxide 20.8 L Anion Gap 14 BUN 14 Creatinine 0.79 Estim Creat Clear Calc 55.14 Est GFR (MDRD) Non-Af 74 BUN/Creatinine Ratio 17.6 Glucose 118 H Calcium 9.5 Urine Color Yellow Urine Clarity Clear Urine pH 6.0 Ur Specific [place] 1.015 Urine Protein 15 H Urine Glucose (UA) Normal Urine Ketones Negative Urine Occult Blood 250 H Urine Nitrite Positive H Urine Bilirubin Negative Urine Urobilinogen Normal Ur Leukocyte Esterase 100 H Urine RBC 0-5 SEEN Urine WBC 0-5 SEEN Ur Squamous Epith Cells 0-5 SEEN Urine Bacteria 3+ Urine Mucus 0 SEEN Radiography Chest X-Ray - ED: 2 View, Read by ED Physician, Normal, No Acute Disease and No Infiltrates Diagnostic Testing: Clinical Impression(s) from Imaging Studies Chest X-Ray 07/07/25 06:10 IMPRESSION: No acute cardiopulmonary abnormalities. Reading Location: [facility] Discharge Plan Triage Chief Complaint: Weakness ED Provider: Sophia Quijano Dx/Rx/DC Orders Clinical Impression: COVID-19, Acute UTI Instructions: Symptoms of COVID-19 Infection, Coronavirus Disease 2019 (COVID- 19): Overview, UTIs Prescriptions: New cephalexin 500 mg capsule 500 mg PO Q12 Qty: 14 0RF No Action cholecalciferol (vitamin D3) 50 mcg (2,000 unit) capsule 50 mcg PO DAILY lovastatin 40 MG tablet 40 mg PO DAILY acetaminophen 500 mg Tablet 1,000 mg PO Q8 Qty: 0 0RF famotidine 20 mg Tablet 20 mg PO DAILY Qty: 0 0RF acetaminophen 500 mg Tablet [...] 10 mg PO QHS Qty: 0 0RF oxycodone 5 mg tablet 5 mg PO Q6H PRN (Reason: pain) 5 Days Qty: 20 0RF gabapentin 300 mg capsule 300 mg PO TID PRN (Reason: pain) 5 Days Qty: 15 0RF Primary Care Provider: Alex Sommers Referrals: Alex Sommers MD [Primary Care Provider] - 2 Days Activity Restrictions/Additional Instructions: Your evaluation in the Emergency Department did not reveal any acute reason for admission. However, I want to emphasize that you may be early in the course of adisease process or illness even if it is not present. For this reason you shouldfollow-up within 24 hours for reevaluation with either your primary care physician or if necessary back here in the Emergency Department. You should return to the Emergency Department immediately if your symptoms worsen or new symptoms develop. Print Language: Ghanaian Disposition Disposition: Home, Self Care What to do if you have Problems For any increased pain, shortness of breath, bleeding, nausea or vomiting, chestpain, or any unexpected problems, contact your Primary Care Provider. Call [facility] ([phone]) or report to the closest Emergency Room. Call 911 if necessary. 07/07/25 0708 <Electronically signed by Sophia Quijano MD> Cosigner Signature (if applicable): CC: Dr. Alex Sommers MD ~ Signed [facility] Work Phone: Evaluation + Plan note Future Appointments [facility] Evaluation noteNo assessment information available [facility] Work Phone: Evaluation note* Diagnosis Onset Date Resolution Status Borderline hyperlipidemia ac deering Osteopenia after menopause a cute Hypertension chronic Encounter for routine gynecological examination noneactive [facility] Work Phone: Evaluation note* Diagnosis Onset Date Resolution Status Status post total left knee replacement acute [facility] Work Phone: Evaluation note* Diagnosis Onset Date Resolution Status Status post total left knee replacement acute Acute encephalopathy acute Carotid artery stenosis acut e Cellulitis of left knee acut e Debility acute Edema of left lower extremity acute Hyperlipidemia acute Osteopenia acute Postoperative anemia acute Status post total left knee replacement acute Hypertension chronic [facility] Work Phone: Evaluation note* Diagnosis Dementia, unspecified dementia severity, unspecified dementia type, unspecified whether behavioral, psychotic, or mood disturbance or anxiety (HCC)- [facility] Narrative No data available for this section [facility] Hospital Discharge instructions Additional Instructions Take meclizine as needed for dizziness. Follow-up with your doctor to have your blood pressure rechecked or buy a blood pressure cuff and take it once a day at home and write down the readings to take to your primary care's office. If your dizzy symptoms worsen or you have difficulty ambulating come back to the ER.[facility] Work Phone: Hospital Discharge instructions No data available for this section [facility] Hospital Discharge instructionsAdditional Instructions Your evaluation in the Emergency Department did not reveal any acute reason for admission. However, I want to emphasize that you may be early in the course of a disease process or illness even if it is not present. For this reason you should follow-up within 24 hours for reevaluation with either your primary care physician or if necessary back here in the Emergency Department. You should return to the Emergency Department immediately if your symptoms worsen or new symptoms develop.[facility] Work Phone: Progress note No data available for this section [facility] Progress note Author Jose Ramon Zuluaga [facility] December 23, 2023 10:44am Note Date/Time December 23, 2023 10:44am [facility] Medical Records Department [address] [place] [address] Progress Note - Orthopedic 12/23/23 1040 MR#: [id number] Acct: [id number] Name: FRED MON Rep #:[id number] : [id number] 83 From: Jose Ramon Sol PCP: Dr. Alex Sommers MD Status:AD M IN Location: [place] [address] Subjective Subjective Patient doing well. Stable. Daughter [...] home alone. Patient has excepting facility at [facility]. Pre-CERT is been obtained. Plan is for discharge today. We did go over discharge instructions including DVT prophylaxis medications, stool softeners and pain management. I have reviewed the [place] Automated Rx Reporting System (OARRS) report for [...] Cosigner Signature (if applicable): CC: ~ Signed [facility] Work Phone: Reason for referral (narrative)No reason for [facility] Work Phone: Summary Purpose Family History [...] Yes April 29, 2020 6:48am Power of Reinstatement Clerk Yes April 29 0 6:48am Advance Directive Response Recorded Date/ Time Living Will Yes April 29, 2020 5:48am Power of Reinstatement Clerk Yes April 29 0 5:48am Advance Directive Response Recorded Date/ Time Living Will Yes May 24, 2023 9:13pm Power of Reinstatement Clerk Yes May 24 3 9:13pm Name of Medical Power of Reinstatement Clerk [facility] May 24, 2023 9:13pm Advance Directive Response Recorded Date/ Time Name of Medical Power of Reinstatement Clerk [facility] May 24, 2023 9:13pm Name of Medical Power of Reinstatement Clerk CAMILLE KLEI N- DAUGHTER May 26, 2023 2:15pm Living Will Yes May 26, 2023 2:15pm Power of Reinstatement Clerk Yes May 26 3 2:15pm Advance Directive Response Recorded Date/ Time Name of Medical Power of Reinstatement Clerk [facility] May 24, 2023 8:13pm Name of Medical Power of Reinstatement Clerk CAMILLE KLEI N- DAUGHTER May 26, 2023 1:15pm Living Will Yes May 26, 2023 1:15pm Power of Reinstatement Clerk Yes May 26 1:15pm Advance Directive Response Recorded Date/ Time Living Will Yes May 26, 2023 1:15pm Power of Reinstatement Clerk Yes May 26 1:15pm Advance Directive Response Recorded Date/ Time Living Will Yes November 23 8:50am Power of Reinstatement Clerk Yes November 23, 2023 8:50am Advance Directive Response Recorded Date/ Time Name of Medical Power of Reinstatement Clerk CAMILLE Gage December 21, 2023 12:33pm Living Will Yes December 21 12:33pm Power of Reinstatement Clerk Yes December 21, 2023 12:33pm Advance Directive Response Recorded Date/ Time Name of Medical Power of Reinstatement Clerk CAMILLE GARRIDO December 21, 2023 12:33pm Name of Medical Power of Reinstatement Clerk Camille Weaver, daughter December 26, 2023 4:55pm Living Will Yes December 26 4:55pm Power of Reinstatement Clerk Yes December 26, 2023 4:55pm Advance Directive Response Recorded Date/ Time Do you have a Healthcare Power of Reinstatement Clerk? 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 SOB Reason for Visit Borderline hyperlipi [...] ABN MAMM June 13, 2025 1:1 2pm Chief Complaint Admit Date SCREENING June 10, 2025 12: 52pm RT BREAST ABN MAMM June 13, 2025 1:1 2pm WEAKNESS July 07, 2025 5: 33am Chief Complaint Admit Date SCREENING June 10, 2025 12: 52pm RT BREAST ABN MAMM June 13, 2025 1:1 2pm WEAKNESS July 07, 2025 5: 33am occlusion and stenosis of unspecified ca rotid zoie July 19, 2025 1:01pm CAROTID STENOSIS July 19, 2025 1:12pm Additional Source Comments INFORMATION SOURCE (unrecogn ized section and content) DATE CREATED AUTHOR 07/25/2021 [facility] DATE CREATED AUTHOR AUTHOR'S ORGANIZ ATION 12/09/2021 [facility] DATE CREATED AUTHOR AUTHOR'S ORGANIZ ATION 11/03/2023 [facility] ([place] DATE CREATED AUTHOR AUTHOR'S ORGANIZ ATION 09/19/2025 [facility] Goals (unrecognized section and content) Goals may [...] Active Member Role Status Dates Dr. Alex Sommers MD Family Provider Active Dr. Alex Sommers MD Primary Care Provider Active Team Status: Inactive Member Role Status Dates Dr. Alex Sommers MD Primary Care Provider Active Dr. Winter Michel MD Emergency Provider Active Team Status: Inactive Member Role Status Dates Dr. Alex Sommers MD Primary Care Provider Active Dr. Torrey Bailey DO Emergency Provider Active Team Status: Inactive Member Role Status Dates Dr. Alex Sommers MD Primary Care Provider Active Rosario Kasper FUNDRAISING CONSULTANT, FUNDRAISING CONSULTANT-C Attending Provider, Referring Pro vider Active Team Status: Inactive Member Role Status Dates Dr. Alex Sommers MD Primary Care Provider Active Dr. Winter Michel MD Attending Provider, Emergency Provider Active Team Status: Inactive Member Role Status Dates Dr. Alex Sommesr MD Primary Care Provider Active Dr. Torrey Bailey DO Attending Provider, Emergency Provide r Active Team Status: Inactive Member Role Status Dates Dr. Alex Sommers MD Primary Care Pr ovider, Attending Provider, Referring Provider Active Team Status: Inactive Member Role Status Dates Dr. Alex Sommers MD Primary Care Provider, Attend ing Provider Active Team Status: Inactive Member Role Status Dates Dr. Alex Sommers MD Primary Care Provider Active Dr. Jose Ramon Zuluaga MD Attending Provider, Referring P rovider Active Team Status: Active Member Role Status Dates Dr. Alex Sommers MD Primary Care Provider Active Dr. Adolfo Rice MD Attending Provider Active Dr. Fredis Edwards MD Referring Provider Active Team Status: Active Member Role Status Dates Dr. Alex Sommers MD Primary Care Provider Active Dr. Jose Ramon Zuluaga MD Admit Provider, R eferring Provider, Other Provider Active Dr. Stefano Avina MD Attending Provider, Other Provider Active Team Status: Inactive Member Role Status Dates Dr. Alex Sommers MD Primary Care Provider Active Dr. Jose Ramon Zuluaga MD Admit Provider, A ttending Provider, Referring Provider Active Dr. Stefano Avina MD Other Provider Active Team Status: Active Member Role Status Dates Dr. Alex Sommers MD Primary Care Provider Active Dr. Fredis Quiros MD Attending Provider Active Team Status: Active Member Role Status Dates Dr. Alex Sommers MD Primary Care Provider Active Dr. Nima Harper MD Admit Provider, Attending Provid er Active Team Status: Inactive Member Role Status Dates Dr. Alex Sommers MD Primary Care Provider Active Dr. Nima Harper MD Attending Provider, Referring Pr ovider Active Team Status: Inactive Member Role Status Dates Dr. Alex Sommers MD Primary Care Provider Active Dr. Nima Harper MD Admit Provider, Attending Provid er Active Team Status: Active Member Role/Relationship Status Dates Dr. Alex Sommers MD Primary Care Provider Active Team Status: Inactive Member Role/Relationship Status Dates Dr. Alex Sommers MD Primary Care Provider Active Start: February 27, 2025 End: February 27, 2025 Dr. Alex Sommers MD Attending Provider Active Start: February 27, 2025 End: February 27, 2025 Dr. Alex Sommers MD Referring Provider Active Start: February 27, 2025 End: February 27, 2025 Team Status: Inactive Member Role/Relationship Status Dates Dr. Alex Sommers MD Primary Care Provider Active Start: June 10, 2025 End: June 10, 2025 Dr. Alex Sommers MD Attending Provider Active Start: June 10, 2025 End: June 10, 2025 Dr. Alex Sommers MD Referring Provider Active Start: June 10, 2025 End: June 10, 2025 Team Status: Active Member Role/Relationship Status Dates Dr. Alex Sommers MD Primary Care Provider Active Start: June 13, 2025 Dr. Alex Sommers MD Attending Provider Active Start: June 13, 2025 Dr. Alex Sommers MD Referring Provider Active Start: June 13, 2025 Team Status: Inactive Member Role/Relationship Status Dates Dr. Alex Sommers MD Primary Care Provider Active Start: June 13, 2025 End: June 13, 2025 Dr. Alex Sommers MD Attending Provider Active Start: June 13, 2025 End: June 13, 2025 Dr. Alex Sommers MD Referring Provider Active Start: June 13, 2025 End: June 13, 2025 Ultrasonic Solderer Relationship Specialty Start Date End Date Alex Sommers MD [address] [address] PCP - General Endocrinology/Metabolism 07/07/23 Team Status: Inactive Member Role/Relationship Status Dates Dr. Alex Sommers MD Primary Care Provider Active Start: June 10, 2025 End: June 10, 2025 Dr. Alex Sommers MD Attending Provider Active Start: June 10, 2025 End: June 10, 2025 Dr. Alex Sommers MD Referring Provider Active Start: June 10, 2025 End: June 10, 2025 Team Status: Inactive Member Role/Relationship Status Dates Dr. Alex Sommers MD Primary Care Provider Active Start: June 13, 2025 End: June 13, 2025 Dr. Alex Sommers MD Attending Provider Active Start: June 13, 2025 End: June 13, 2025 Dr. Alex Sommers MD Referring Provider Active Start: June 13, 2025 End: June 13, 2025 Team Status: Active Member Role/Relationship Status Dates Dr. Alex Sommers MD Primary Care Provider Active Start: July 04, 2025 Dr. Alex Sommers MD Attending Provider Active Start: July 04, 2025 Dr. Alex Sommers MD Referring Provider Active Start: July 04, 2025 Team Status: Inactive Member Role/Relationship Status Dates Dr. Alex Sommers MD Primary Care Provider Active Start: July 07, 2025 End: July 07, 2025 Dr. Sophia Quijano MD Emergency Provider Active S tart: July 07, 2025 End: July 07, 2025 Team Status: Inactive Member Role/Relationship Status Dates Dr. Alex Sommers MD Primary Care Provider Active Start: July 04, 2025 End: July 04, 2025 Dr. Alex Sommers MD Attending Provider Active Start: July 04, 2025 End: July 04, 2025 Dr. Alex Sommers MD Referring Provider Active Start: July 04, 2025 End: July 04, 2025 Team Status: Active Member Role/Relationship Status Dates Dr. Alex Sommers MD Primary care physician Active Team Status: Inactive Member Role/Relationship Status Dates Dr. Alex Sommers MD Primary care physician Active Start: June 10, 2025 End: June 10, 2025 Dr. Alex Sommers MD Attending physician Active Start: June 10, 2025 End: June 10, 2025 Dr. Alex Sommers MD Referring Provider Active Start: June 10, 2025 End: June 10, 2025 Team Status: Inactive Member Role/Relationship Status Dates Dr. Alex Sommers MD Primary care physician Active Start: June 13, 2025 End: June 13, 2025 Dr. Alex Sommers MD Attending physician Active Start: June 13, 2025 End: June 13, 2025 Dr. Alex Sommers MD Referring Provider Active Start: June 13, 2025 End: June 13, 2025 Team Status: Inactive Member Role/Relationship Status Dates Dr. Alex Sommers MD Primary care physician Active Start: July 04, 2025 End: July 04, 2025 Dr. Alex Sommers MD Attending physician Active Start: July 04, 2025 End: July 04, 2025 Dr. Alex Sommers MD Referring Provider Active Start: July 04, 2025 End: July 04, 2025 Team Status: Inactive Member Role/Relationship Status Dates Dr. Alex Sommers MD Primary care physician Active Start: July 07, 2025 End: July 07, 2025 Dr. Sophia Quijano MD Attending physician Active Start: July 07, 2025 End: July 07, 2025 Dr. Sophia Quijano MD Emergency Departmen t Physician Active Start: July 07, 2025 End: July 07, 2025 Team Status: Inactive Member Role/Relationship Status Dates Dr. Alex Sommers MD Primary care physician Active Start: July 19, 2025 End: July 19, 2025 Dr. Alex Sommers MD Attending physician Active Start: July 19, 2025 End: July 19, 2025 Dr. Alex Sommers MD Referring Provider Active Start: July 19, 2025 End: July 19, 2025 Team Status: Active Member Role/Relationship Status Dates Dr. Doe Jacobsen MD Attending physician Active Start: July 19, 2025 Dr. Alex Sommers MD Referring Provider Active Start: July 19, 2025 FOR RECORDS PERTAINING TO PATIENTS WHO ARE [...] BE BASED ON THE PRIMARY CLINICAL RECORDS. [employer] [facility]. provides no warranty or guarantee of the accuracy or completeness of information in this document.
[2025-10-30 12:23] LABS: Hematocrit 36.5 % (37-47); Hemoglobin 12.5 g/dL (12.0-15.0); Immature Granulocytes Count 0.010 X10^3/uL (0.0-0.0); Mean Corp Hgb Conc 34.2 g/dL (32-36); Mean Corpuscular Volume 87.5 fL (81-99); Mean Platelet Vol. 10.9 fl (6.2-12.0); NRBC Flagged by Analyzer 0 % (0-5); Platelet Count 168 K/mm3 (150-450); RBC Distribution Width CV 13.7 % (11.6-14.6); RBC Distribution Width SD 43.8 fl (35.1-43.9); Red Blood Count 4.17 M/mm3 (4.2-5.4); White Blood Count 4.4 K/mm3 (4.4-11.0)
[2025-10-30 12:58] LABS: AST(SGOT) 21 U/L (<=31); Alanine Aminotransfer ALT/SGPT 13 U/L (<=34); Albumin, Serum 4.5 g/dL (3.4-4.8); Alkaline Phosphatase 88 U/L (35-104); Anion Gap 13 (7-18); BUN 15 mg/dL (4-19); BUN/Creat Ratio 17.5 RATIO (10-20); Calcium,Total 9.9 mg/dL (7.6-11.0); Carbon Dioxide 22.8 mmol/L (20.0-29.0); Chloride 104 mmol/L (96-106); Cholesterol 183 mg/dL (<=200); Globulin 2.4 g/dL (2.2-4.2); Glucose 102 mg/dL (70-99); Low Density Lipoprotein Calc. 87 mg/dL; Potassium 4.1 mmol/L (3.5-5.1); Triglycerides 120 mg/dL; Very Low Density Lipoprotein 24 mg/dL (5-40); Vitamin B12 480 pg/mL (180-914); Vitamin D,25 Hydroxy 31.1 ng/mL (30-100); cholesterol:hdl ratio screen 2.43
== END | disposition home or self-care (01) ==
LOC: MTLAB 09:54
PROVIDERS: PCP Family Medicine; Referring Provider Family Medicine; Visit Provider Family Medicine
DX: E78.00 Pure hypercholesterolemia, unspecified (principal); G31.84 Mild cognitive impairment of uncertain or unknown etiology; E55.9 Vitamin D deficiency, unspecified
CPT/HCPCS: 36415; 80053; 80061; 81001; 82306; 82607; 84443; 85025